=== PATIENT | male | born 1955 | race Caucasian/White ===

== ENCOUNTER 2016-04-11 10:45 | Outpatient (RCR) | payer MEDICARE, MEDICAID ==
[~2016-04-11 10:45] MED LIST: ALBU17AE23 IH; ALBU2.5V4 IH; AMIT50TA3 PO; BUDE10.2 IH; BUDE6HFA IH; CYCL10TA9 PO; DIAZ2TAB2 PO; FLUT16SP22 NS; GABA600T2 PO; GBPN100C PO; GLIM4TAB PO; GLYB5TAB3 PO; HCT25T PO; HYDR25TA4 PO; INSU100C SQ; INSU100I29 SQ; INSU100V5 SQ; IPRA0.2S18 IH; IPRA3AMP11 INH; Insulin Human Lispro SC; LEVE1U SQ; LISI-552 PO; LISI10TA2 PO; LISI20TA2 PO; Lisinopril PO; METF-380 PO; METFOR850T PO; METO-272 PO; MORP30TA28 PO; MTP50T PO; OXYC-12 PO; PAMI30VI8 SQ; RT-ALBUINH IH; SULF-222 PO
[2016-06-27] MEDS ORDERED: IPRA3AMP INH (09:13)
[2016-06-27] MEDS ORDERED: LISI10TA2 PO (09:13)
[2016-06-27] MEDS ORDERED: INSU100V3 SC (09:13)
[2016-06-27] MEDS ORDERED: AMLO5TAB2 PO (09:13)
[2016-06-27] MEDS ORDERED: FLUT12AE4 IH (09:13)
== END 2016-05-03 13:41 | disposition home or self-care (01) ==
PROVIDERS: ATTEND Nurse Practitioner
DX: M51.16 Intervertebral disc disorders with radiculopathy, lumbar region (principal); E11.9 Type 2 diabetes mellitus without complications

== ENCOUNTER 2016-06-12 19:23 | Inpatient (IN) | payer MEDICARE, MEDICAID ==
[~2016-06-12] VITALS: Ht 170.2 cm; Wt 108.9 kg
[2016-06-12 12:50] VITALS: BP 108/69
[2016-06-12] MEDS ORDERED: NS IV 1000 ML 3,500 ML IV PRN (19:45)
[2016-06-12 20:15] LABS: BASOPHILS # (AUTO) 0.1 10^3/uL (0.0-0.1); BASOPHILS % (AUTO) 0 % (0-10); EOSINOPHILS # (AUTO) 0.3 10^3/uL (0.0-0.3); EOSINOPHILS % (AUTO) 1 % (0-10); LYMPHOCYTES # (AUTO) 3.4 X 10^3 (1.0-4.0); LYMPHOCYTES % (AUTO) 15 % (12-44); MEAN CORPUSCULAR HEMOGLOBIN 29 PG (25-34); MEAN CORPUSCULAR HGB CONC 33 G/DL (32-36); MEAN CORPUSCULAR VOLUME 87 FL (80-99); MEAN PLATELET VOLUME 11.3 FL (7.4-10.4); MONOCYTES % (AUTO) 13 % (0-12); NEUTROPHILS # (AUTO) 15.8 X 10^3 (1.8-7.8); NEUTROPHILS % (AUTO) 70 % (42-75); PLATELET COUNT 173 10^3/uL (130-400); RED BLOOD COUNT 5.01 10^6/uL (4.35-5.85); RED CELL DISTRIBUTION WIDTH 14.4 % (10.0-14.5); WHITE BLOOD COUNT 22.5 10^3/uL (4.3-11.0)
--- NOTE | 2016-06-12 20:20 | ED General ---
General Stated Complaint: AMS Source of Information: Patient, EMS Exam Limitations: Physical Impairments History of Present Illness Time Seen by Provider: 19:28 Initial Comments Here with report of fever, altered mental status and overall not feeling well. EMS. Family noted that his blood sugar was elevated today. They did give him his dosing of insulin and Lantus. Blood sugar was improved by EMS in the 170s. Patient will awake with stimulation but is confused. He denies any complaints. He is definitely confused though and a poor historian overall. Timing/Duration: 12 Hours Severity: Moderate, Severe Associated Systoms: No Chest Pain, Fever/ChillsNo Nausea/Vomiting, No Shortness of Air, Weakness Allergies and Home Medications Allergies Coded Allergies: No Known Drug Allergies (Unverified , 12/09/14) Home Medications Albuterol Sulfate 1 Puff Puff 30Days 90 MCG IH UD PRN PRN soa 2 puffs by inhalation qid MDI Prescribed by: MARLENE CALIXTO on 10/17/14 1526 Budesonide/Formoterol Fumarate 10.2 Gm Hfa.aer.ad 2 PUFF IH BID (Reported) Cyclobenzaprine Hcl 10 Mg Tablet 10 MG PO HS (Reported) Fluticasone Propionate 16 Gm [place].susp 1 SPRAY NSEACH BID (Reported) Gabapentin 600 Mg Tablet 600 MG PO TID (Reported) Glimepiride 4 Mg Tablet 4 MG PO DAILY (Reported) Insulin Detemir 100 Unit/1 Ml Insuln.pen 30 UNIT SQ BID (Reported) Insulin Lispro 100 Unit/1 Ml Cartridge 10 UNIT SQ AC (Reported) Lisinopril 20 Mg Tablet 20 MG PO BID (Reported) Morphine Sulfate 30 Mg Tablet.sa 30 MG PO Q12H (Reported) Oxycodone Hcl/Acetaminophen 1 Each Tablet 1-2 TAB PO Q4-6 PRN PRN PAIN (Reported ) MAY TAKE 1 OR 2 TABLETS BY MOUTH EVERY 4 TO 6 HRS NEEDED FOR PAIN. LAST PAIN MED, 1 TAB, GIVEN AT 2:30 PM 12/09/14. Constitutional: see HPI chills fever Respiratory: No cough, No short of breath Gastrointestinal: No nausea, No vomiting Psychiatric/Neurological: See HPI Other Unable to complete review of systems due to clinical condition, altered mental status and confusion. All Other Systems Reviewed Negative Unless Noted: No Past Bwiswyz-Fiilnq-Hyayqt Hx Patient Social History Alcohol Use: Denies Use Recreational Drug Use: No Smoking Status: Former Smoker Former Smoker/When Quit: Sep 29, 2009 Surgeries HX Surgeries: Yes (L SHOULDER, R ANKLE, PENILE IMPLANT, ) Respiratory Hx Respiratory Disorders: Yes (oxygen at HS, prn during the day) Respiratory Disorders: COPD Cardiovascular Hx Cardiac Disorders: No Cardiac Disorders: Hypertension Neurological Hx Neurological Disorders: Yes Reproductive System Hx Reproductive Disorders: Yes (ARTIFICAL TESTICLE, ) Genitourinary Hx Genitourinary Disorders: Yes ("FREQUENT URINATION", ) Genitourinary Disorders: Renal Failure Gastrointestinal Hx Gastrointestinal Disorders: No Musculoskeletal Hx Musculoskeletal Disorders: Yes Musculoskeletal Disorders: Arthritis, Chronic Back Pain Endocrine Hx Endocrine Disorders: Yes Endocrine Disorders: Diabetes, Insulin dep HEENT HX ENT Disorders: No (GLASSES, ) Cancer Hx Cancer: No Psychosocial Hx Psychiatric Problems: No Integumentary HX Skin/Integumentary Disorder: No Blood Transfusions Hx Blood Disorders: No Adverse Reaction to a Blood Tr: No Reviewed Nursing Assessment Reviewed/Agree w Nursing PMH: Yes Family Medical History Significant Family History: No Pertinent Family Hx Family Medial History: Diabetes mellitus 19 MOTHER G8 SISTER Hypertension 19 FATHER 19 MOTHER Myocardial infarction 19 FATHER (STROKES) Physical Exam-Suspected Sepsis Physical Exam Vital Signs Vital Sign - Last 12Hours 06/12/16 12:50 Temp 100.1 Pulse 109 Resp 18 B/P 108/69 Pulse Ox 90 Capillary Refill : General Appearance: No Apparent Distress WD/WN HEENT: PERRL/EOMI Pharynx Normal Neck: Non Tender Supple Respiratory: Lungs Clear Normal Breath Sounds Cardiovascular: No Murmur Tachycardia Gastrointestinal: Non Tender Soft Back: Normal Inspection No CVA Tenderness No Vertebral Tenderness Extremity: Normal Capillary Refill Normal Range of Motion Non Tender No Calf Tenderness Neurologic/Psychiatric: Depressed Affect Disoriented x3 Other (follows simple commands after arousing with strong verbal or mild stimulation chest rub.) Skin: normal color warm/dry Progress/Results/Core Measures Suspected Sepsis SIRS Temperature: Pulse: Respiratory Rate: Laboratory Tests 06/12/16 20:05: White Blood Count 22.5H Blood Pressure / Mean: Laboratory Tests 06/12/16 20:05: Creatinine 3.07H, INR Comment 1.1, Platelet Count 173, Total Bilirubin 1.3H Results/Orders Lab Results Laboratory Tests Test 06/12/16 19:31 06/12/16 20:05 06/12/16 20:37 06/12/16 21:10 Range/Units Glucometer 142 H 70-110 MG/DL Acetaminophen Level < 10 L 10-30 UG/ML Activated Partial Thromboplast Time 25 24-35 SEC Alanine Aminotransferase (ALT/SGPT) 36 0-55 U/L Albumin 3.9 3.2-4.5 G/DL Alkaline Phosphatase 101 40-136 U/L Anion Gap 14 5-14 MMOL/L Aspartate Amino Transf (AST/SGOT) 32 5-34 U/L BUN/Creatinine Ratio 14 Band Neutrophils 2 % Basophils # (Auto) 0.1 0.0-0.1 10^3/uL Basophils % (Manual) 1 % Basophils (%) (Auto) 0 0-10 % Blood Morphology Comment NORMAL Blood Urea Nitrogen 42 H 7-18 MG/DL Calcium Level 9.0 8.5-10.1 MG/DL Carbon Dioxide Level 19 L 21-32 MMOL/L Chloride Level 104 98-107 MMOL/L Creatinine 3.07 H 0.60-1.30 MG/DL Eosinophils # (Auto) 0.3 0.0-0.3 10^3/uL Eosinophils % (Manual) 0 % Eosinophils (%) (Auto) 1 0-10 % Estimat Glomerular Filtration Rate 21 Glucose Level 174 H 70-105 MG/DL Hematocrit 43 40-54 % Hemoglobin 14.5 13.3-17.7 G/DL INR Comment 1.1 0.8-1.4 Lymphocytes # (Auto) 3.4 1.0-4.0 X 10^3 Lymphocytes % (Manual) 28 % Lymphocytes (%) (Auto) 15 12-44 % Mean Corpuscular Hemoglobin 29 25-34 PG Mean Corpuscular Hemoglobin Concent 33 32-36 G/DL Mean Corpuscular Volume 87 80-99 FL Mean Platelet Volume 11.3 H 7.4-10.4 FL Monocytes # (Auto) 3.0 H 0.0-1.0 X 10^3 Monocytes % (Manual) 3 % Monocytes (%) (Auto) 13 H 0-12 % Neutrophils # (Auto) 15.8 H 1.8-7.8 X 10^3 Neutrophils % (Manual) 66 % Neutrophils (%) (Auto) 70 42-75 % Platelet Count 173 130-400 10^3/uL Potassium Level 4.2 3.6-5.0 MMOL/L Prothrombin Time 13.8 12.2-14.7 SEC Red Blood Count 5.01 4.35-5.85 10^6/uL Red Cell Distribution Width 14.4 10.0-14.5 % Salicylates Level < 5.0 L 5.0-20.0 MG/DL Serum Alcohol < 10 <10 MG/DL Sodium Level 137 135-145 MMOL/L Total Bilirubin 1.3 H 0.1-1.0 MG/DL Total Protein 6.6 6.4-8.2 G/DL Troponin I < 0.30 <0.30 NG/ML White Blood Count 22.5 H 4.3-11.0 10^3/uL Lactic Acid Level 1.33 0.50-2.00 MMOL/L Ur Tricyclic Antidepressants Screen POSITIVE H NEGATIVE Urine Amphetamines Screen NEGATIVE NEGATIVE Urine Bacteria NEGATIVE /HPF Urine Barbiturates Screen NEGATIVE NEGATIVE Urine Benzodiazepines Screen POSITIVE H NEGATIVE Urine Bilirubin 2+ H NEGATIVE Urine Calcium Oxalate Crystals MODERATE H /LPF Urine Cannabinoids Screen NEGATIVE NEGATIVE Urine Casts PRESENT /LPF Urine Clarity SLIGHTLY CLOUDY Urine Coarse Granular Casts 2-5 H /LPF Urine Cocaine Screen NEGATIVE NEGATIVE Urine Color ALTON H Urine Crystals PRESENT H /LPF Urine Culture Indicated NO Urine Glucose (UA) 1+ H NEGATIVE Urine Ketones NEGATIVE NEGATIVE Urine Leukocyte Esterase 1+ H NEGATIVE Urine Methadone Screen NEGATIVE NEGATIVE Urine Methamphetamines Screen NEGATIVE NEGATIVE Urine Mucus NEGATIVE /LPF Urine Nitrite NEGATIVE NEGATIVE Urine Opiates Screen POSITIVE H NEGATIVE Urine Oxycodone Screen NEGATIVE NEGATIVE Urine Phencyclidine Screen NEGATIVE NEGATIVE Urine Propoxyphene Screen NEGATIVE NEGATIVE Urine Protein 3+ H NEGATIVE Urine RBC 0-2 /HPF Urine RBC (Auto) 1+ H NEGATIVE Urine Specific [place] 1.025 H 1.016-1.022 Urine Squamous Epithelial Cells 2-5 /HPF Urine Urobilinogen 1 NORMAL MG/DL Urine WBC 2-5 /HPF Urine pH 5 5-9 Test 06/12/16 21:42 06/13/16 03:17 Range/Units Glucometer 149 H 94 70-110 MG/DL Micro Results Microbiology 06/12/16 Influenza Types A,B Antigen (JULIA) - Final, Complete My Orders Orders-MANJINDER MONK MD Cbc With Automated Diff (06/12/16 19:33) Comprehensive Metabolic Panel (06/12/16 19:33) Lactic Acid Analyzer (06/12/16 19:33) Blood Culture (06/12/16 19:33) Sputum Culture (06/12/16 19:33) Ua Culture If Indicated (06/12/16 19:33) Protime With Inr (06/12/16 19:33) Partial Thromboplastin Time (06/12/16 19:33) Chest 1 View, Ap/Pa Only (06/12/16 19:33) O2 (06/12/16:33) Saline Lock/Iv-Start (06/12/16 19:33) Ekg Tracing (06/12/16 19:33) Troponin I (06/12/16 19:33) Ns Iv 1000 Ml (Sodium Chloride 0.9%) (06/12/16 19:45) Vital Signs Adult Sepsis Patie Q1HR (06/12/16 19:33) Remove Rings In Anticipation O (06/12/16 19:33) Influenza A And B Antigens (06/12/16 19:33) Acetaminophen (06/12/16 20:11) Alcohol (06/12/16 20:11) Drug Screen Stat (Urine) (06/12/16 20:11) Salicylate (06/12/16 20:11) Manual Differential (06/12/16 20:05) Ct Head Wo (06/12/16 22:07) Medications Given in ED Current Medications Medications Dose Ordered Sig/Jaspal Route Start Time Stop Time Status Last Admin Dose Admin Sodium Chloride 3,500 ml @ 1,750 mls/hr PRN PRN IV 06/12/16 19:45 06/12/16 23:10 DC 06/12/16 22:22 1,750 MLS/HR Vital Signs/I&O Vital Sign - Last 12Hours 06/12/16 06/12/16 06/12/16 06/12/16 19:37 19:37 22:54 23:00 Temp 98.9 Pulse 111 111 Resp 12 14 B/P Pulse Ox 98 96 97 O2 Delivery Nasal Cannula Nasal Cannula Nasal Cannula O2 Flow Rate 3 3 2.00 06/12/16 06/12/16 06/13/16 06/13/16 23:00 23:41 00:00 00:39 Temp 99.9 Pulse 107 102 Resp 18 B/P 100/55 Pulse Ox 98 94 98 O2 Flow Rate 3.00 06/13/16 06/13/16 01:00 02:15 Pulse 106 Pulse Ox 95 Capillary Refill : Progress Note : Progress Note Seen and evaluated. IV by EMS. Secondary IV initiated. Patient was noted to have declining blood pressure and tachycardia in the setting of fever with concern for severe sepsis or septic shock due to altered mental status. Normal saline 30 mL/kg initiated. Labs, blood cultures, lactic acid, EKG, chest x-ray and UA ordered. Monitor patient. 2049: Albrecht catheter ordered as patient has not been elevated give urine sample yet and we will need to do monitoring of urinary output due to altered mental status and sepsis concerns. 2134: I did discuss the case with Dr. LAKE. He except patient for admission, inpatient status for acute renal failure and volume depletion. There is no indications of infection to chest or urine currently and lactic acid is negative. Influenza screen pending. Patient had a similar presentation in 2014 and had acute renal failure and volume depletion at that time. Patient has been afebrile here. Patient to be admitted inpatient status for the renal failure. He will complete his fluid volume resuscitation. Focused exam is negative currently. Discussed with the patient's brother who agrees with plan. Patient is on narcotic medication and he may have sedative affect related to that. He is moving all extremities. ECG Initial ECG Impression Date: Jun 12, 2016 Initial ECG Impression Time: 19:37 Initial ECG Rate: 117 Initial ECG Rhythm: S.Tach Comment Sinus tachycardia with left axis deviation. Overall similar in morphology to previous except for elevated rate. No evidence of ST elevation [place]. Interpreted by me. Diagnostic Imaging Diagonstic Imaging: Xray Plain Films/CT/US/NM/MRI: chest Comments [facility] [place], [place] NAME: VASQUEZ CAMPBELL V [facility] REC#: [id number] PT STATUS: REG ER : 1955 PHYSICIAN: MANJINDER MONK MD ADMIT DATE: 06/12/16/ER Draft Date of Exam:06/12/16 CHEST 1 VIEW, AP/PA ONLY Portable chest is correlated with CT of the chest from July 28, 2014. INDICATION: Altered mental status. FINDINGS: Lung volumes are diminished with some mild basilar atelectasis. There is enlargement of the cardiac silhouette but no findings to suggest failure. No large effusion evident. There is no pneumothorax. IMPRESSION: 1. Low lung volumes with bibasilar atelectasis. 2. Enlarged cardiac silhouette without evidence of failure. Dictated on workstation # [id number] Dict: 06/12/162036 Trans: 06/12/162049 [id number] Interpreted by: AHSAN FREEMAN MD Electronically signed by: Diagonschristopher Imaging: CT Plain Films/CT/US/NM/MRI: head Comments No intracranial hemorrhage, mass effect or edema. No evidence of acute cortical stroke. Visualized sinuses and mastoid air cells are clear. Reviewed: Reviewed Night [facility] Study Departure Communication Time/Spoke to Admitting Phy: 21:35 Impression Impression: Primary Impression: Acute renal failure Qualified Code: N17.9 - Acute kidney failure, unspecified Additional Impression: Volume depletion Disposition: ADMITTED INPATIENT Condition: Stable Departure-Patient Inst. Referrals: LIZETTE REINOSO MD (PCP) Primary Care Physician MANJINDER MONK MD Jun 12, 2016 20:20
[2016-06-12 20:30] LABS: INR 1.1 (0.8-1.4); PROTHROMBIN TIME PATIENT 13.8 SEC (12.2-14.7)
[2016-06-12 20:36] LABS: ACETAMINOPHEN < 10 UG/ML (10-30); ALCOHOL < 10 MG/DL (<10); SALICYLATE < 5.0 MG/DL (5.0-20.0)
[2016-06-12 20:46] LABS: BAND NEUTROPHILS 2 %; BASOPHILS % (MANUAL) 1 %; EOSINOPHILS % (MANUAL) 0 %; LYMPHOCYTES % (MANUAL) 28 %; NEUTROPHILS % (MANUAL) 66 %
[2016-06-12 20:47] LABS: ALANINE AMINOTRANSFERASE 36 U/L (0-55); ALBUMIN 3.9 G/DL (3.2-4.5); ANION GAP 14 MMOL/L (5-14); ASPARTATE AMINO TRANSFERASE 32 U/L (5-34); BILIRUBIN,TOTAL 1.3 MG/DL (0.1-1.0); BLOOD UREA NITROGEN 42 MG/DL (7-18); BUN/CREATININE RATIO 14; CARBON DIOXIDE 19 MMOL/L (21-32); CHLORIDE 104 MMOL/L (98-107); CREATININE SERUM 3.07 MG/DL (0.60-1.30); GFR ESTIMATED 21; GLUCOSE 174 MG/DL (70-105); POTASSIUM 4.2 MMOL/L (3.6-5.0); SODIUM 137 MMOL/L (135-145); TOTAL PROTEIN 6.6 G/DL (6.4-8.2)
--- NOTE | 2016-06-12 20:50 | Diagnostic Imaging Report ---
Portable chest is correlated with CT of the chest from July 28, 2014. INDICATION: Altered mental status. FINDINGS: Lung volumes are diminished with some mild basilar atelectasis. There is enlargement of the cardiac silhouette but no findings to suggest failure. No large effusion evident. There is no pneumothorax. IMPRESSION: 1. Low lung volumes with bibasilar atelectasis. 2. Enlarged cardiac silhouette without evidence of failure. Dictated by: Dictated on workstation # [id number]
[2016-06-12 20:53] LABS: TROPONIN I < 0.30 NG/ML (<0.30)
[2016-06-12 21:15] LABS: KETONES,URINE NEGATIVE (NEGATIVE); LEUKOCYTE ESTERASE ,URINE 1+ (NEGATIVE); NITRITE,URINE NEGATIVE (NEGATIVE); PH,URINE 5 (5-9); PROTEIN,URINE 3+ (NEGATIVE); UROBILINOGEN,URINE 1 MG/DL (NORMAL)
[2016-06-12 21:28] LABS: BILIRUBIN,URINE 2+ (NEGATIVE); CALCIUM OXALATE CRYSTALS,UR MODERATE /LPF
[2016-06-12] MEDS ORDERED: ONDANSETRON 4 MG/2 ML (SDV) Z0FRAN IV PRN (23:15)
[2016-06-12] MEDS: NS IV 1000 ML 1,000 ML IV SCH (23:40)
[2016-06-13] VITALS (7 sets, daily range): BP systolic 100–143; BP diastolic 55–77
[2016-06-13] MEDS ORDERED: RT-ALBUTEROL/IPRATROPIUM 3 ML (DUONEB) VIAL INH PRN (00:45)
[2016-06-13 05:13] LABS: BASOPHILS % (AUTO) 0 % (0-10); EOSINOPHILS # (AUTO) 0.2 10^3/uL (0.0-0.3); EOSINOPHILS % (AUTO) 1 % (0-10); LYMPHOCYTES # (AUTO) 3.1 X 10^3 (1.0-4.0); LYMPHOCYTES % (AUTO) 18 % (12-44); MEAN CORPUSCULAR HEMOGLOBIN 29 PG (25-34); MEAN CORPUSCULAR HGB CONC 33 G/DL (32-36); MEAN CORPUSCULAR VOLUME 88 FL (80-99); MEAN PLATELET VOLUME 11.6 FL (7.4-10.4); MONOCYTES # (AUTO) 1.8 X 10^3 (0.0-1.0); MONOCYTES % (AUTO) 11 % (0-12); NEUTROPHILS % (AUTO) 70 % (42-75); PLATELET COUNT 167 10^3/uL (130-400); RED BLOOD COUNT 4.43 10^6/uL (4.35-5.85); RED CELL DISTRIBUTION WIDTH 14.4 % (10.0-14.5); WHITE BLOOD COUNT 17.2 10^3/uL (4.3-11.0)
[2016-06-13 05:41] LABS: ALBUMIN 3.2 G/DL (3.2-4.5); BILIRUBIN,TOTAL 0.9 MG/DL (0.1-1.0); CALCIUM 8.1 MG/DL (8.5-10.1); CREATININE SERUM 2.34 MG/DL (0.60-1.30); POTASSIUM 3.8 MMOL/L (3.6-5.0); TOTAL PROTEIN 5.6 G/DL (6.4-8.2)
[2016-06-13] MEDS: RT-ADVAIR HFA 115/21 MCG PER PUFF IH SCH ×2 (06:42→20:00)
[2016-06-13] MEDS: RT-ALBUTEROL/IPRATROPIUM 3 ML (DUONEB) VIAL INH SCH ×3 (06:42→20:11)
[2016-06-13] MEDS: NS IV 1000 ML 1,000 ML IV SCH ×3 (06:46→17:36)
[2016-06-13] MEDS ORDERED: FLU TRIvalent (5 YOA+) 2016-17 (AFLURIA) 0.5 ML IM ONE (07:00)
--- NOTE | 2016-06-13 08:07 | Diagnostic Imaging Report ---
PROCEDURE: CT head without contrast. TECHNIQUE: Multiple contiguous axial images were obtained through the brain without the use of intravenous contrast. INDICATION: Altered mental status. COMPARISON: 07/28/2014. FINDINGS: No hyperdense hemorrhage or space-occupying mass. No hydrocephalus or midline shift. The ibarra-white matter differentiation is preserved. Specifically, there is no evidence of territorial based infarct. Age-appropriate mild cerebral and cerebellar volume loss. No isolated lobar atrophy. Basilar cisterns remain patent. No scalp swelling. No acute skull fracture or concerning osseous lesion. Paranasal sinuses and mastoid air cells are clear. IMPRESSION: 1. No acute intracranial process. 2. Findings are in agreement with the preliminary report. Dictated by: Dictated on workstation # [id number]
[2016-06-13] MEDS ORDERED: GABA600T2 PO (09:50)
[2016-06-13] MEDS ORDERED: INSU100V16 SC (09:50)
[2016-06-13] MEDS ORDERED: CYCL10TA9 PO (09:50)
[2016-06-13] MEDS ORDERED: OXYC-471 PO (09:50)
[2016-06-13] MEDS ORDERED: RT-ALBUINH INH (09:50)
[2016-06-13] MEDS ORDERED: MECL-106 PO (09:50)
[2016-06-13] MEDS ORDERED: ALBU2.5V4 NEB (09:50)
[2016-06-13] MEDS ORDERED: AMLO5TAB2 PO (09:50)
[2016-06-13] MEDS ORDERED: DIAZ2TAB2 PO (09:50)
[2016-06-13] MEDS ORDERED: MORP60TA52 PO (09:50)
[2016-06-13] MEDS ORDERED: NF-SOLIF5T PO (09:50)
[2016-06-13] MEDS ORDERED: INSU100V5 SC (09:50)
--- NOTE | 2016-06-13 10:36 | History & Physical-Hospitalist ---
HPI History of Present Illness: HPI/Chief Complaint CC: Confusion HPI: This is a 60-year-old white male that presented to the emergency room by ambulance with altered mental status. Upon assessment of medical record I do find a history and physical dated 10/16/14 by [facility] when he was admitted for the same type complaints. Apparently he had an issue with acute renal failure likely medication related along with hypotension and resolved without residual but I'm having difficulty finding any information whatsoever about the patient since [facility] ambulance service did not transport the patient last night nor is there any family or any contact information of the patient came with. He is very confused and unable to answer any questions reliably. Exam Limitations: clinical condition Date Seen 06/13/16 Attending Physician David Tucker MD PCP No,Local Physician Referring Physician Date of Admission Jun 12, 2016 at 22:22 Home Medications & Allergies Home Medications Reviewed patient Home Medication Reconciliation Form Allergies Allergies Coded Allergies No Known Drug Allergies (Unverified12/09/14) Past Pitwlqo-Zzrggx-Emnadn Hx Patient Social History Alcohol Use: Denies Use Recreational Drug Use: No Smoking Status: Former Smoker Former smoker/When Quit: Sep 29, 2009 Physical Abuse Screen: No (unable to assess upon arrival) Sexual Abuse: No (unable to assess upon arrival) Recent Foreign Travel: No Contact w/other who traveled: No Recent Hopitalizations: Yes Recent Infectious Disease Expo: No Surgeries HX Surgeries: Yes (L SHOULDER, R ANKLE, PENILE IMPLANT, ) Respiratory Hx Respiratory Disorders: Yes (oxygen at HS, prn during the day) Cardiovascular Hx Cardiovascular Disorders: No Cardiac Disorders: Hypertension Neurological Hx Neurological Disorders: Yes Reproductive System Hx Reproductive Disorders: Yes (ARTIFICAL TESTICLE, ) Genitourinary Hx Genitourinary Disorders: Yes ("FREQUENT URINATION", ) Genitourinary Disorders: Renal Failure Gastrointestinal Hx Gastrointestinal Disorders: No Musculoskeletal Hx Musculoskeletal Disorders: Yes Musculoskeletal Disorders: Arthritis, Chronic Back Pain Endocrine Hx Endocrine Disorders: Yes Endocrine Disorders: Diabetes, Insulin dep HEENT HX ENT Disorders: No (GLASSES, ) Cancer Hx Cancer: No Psychosocial Hx Psychiatric Problems: No Integumentary HX Skin/Integumentary Disorder: No Blood Transfusions Hx Blood Disorders: No Adverse Reaction to a Blood Tr: No Reviewed Nursing Assessment Reviewed/Agree w Nursing PMH: Yes Family Medical History Significant Family History: No Pertinent Family Hx Family Hx: Diabetes mellitus 19 MOTHER G8 SISTER Hypertension 19 FATHER 19 MOTHER Myocardial infarction 19 FATHER (STROKES) Review of Systems ROS-Unable to Obtain: Unreliable Constitutional: see HPI Physical Exam Physical Exam Vital Signs Vital Sign - Last 12Hours 06/12/16 12:50 Temp 100.1 Pulse 109 Resp 18 B/P 108/69 Pulse Ox 90 Capillary Refill : Greater Than 3 Seconds General Appearance: Chronically ill Mild Distress Obese Neck: Full Range of Motion Normal Inspection Supple Respiratory: Chest Non Tender Lungs Clear Normal Breath Sounds No Accessory Muscle Use No Respiratory Distress Cardiovascular: Regular Rate, Rhythm No Edema No Gallop Back: Normal Inspection No CVA Tenderness Neurologic/Psychiatric: Disoriented x3 Skin: Normal Color Warm/Dry Lymphatic: No Adenopathy Results Results/Procedures Lab Laboratory Tests 06/12/16 20:05 06/13/16 04:42 Assessment/Plan Admission Diagnosis Assessment: Altered mental status and hypotension with history of similar event back in 2014 related to acute renal failure and overmedication DM HTN Assessment and Plan Plan: Gathering information from family Supportive care Speech and physical therapy Monitor closely Clinical Quality Measures DVT/VTE Risk/Contraindication: Risk Factor Score Per Nursin RFS Level Per Nursing on Admit: 4+=Very High ANGÉLICA DAVIS DO Jun 13, 2016 10:36
--- NOTE | 2016-06-13 11:12 | Speech Therapy Progress Note ---
Therapy Progress Note Speech pathology dysphagia evaluation consult received and chart reviewed. The speech pathologist attempted swallowing evaluation, however, the patient continued to demonstrate decreased alertness levels. The clinician attempted to rouse the patient with gentle verbal cues, however, was unsuccessful. The patient was seated in an upright position by the ST in bed and lights were increased in the room in attempts to improve cooperation and alertness. The patient continued to demonstrate high levels of lethargy. The patient did not follow one-step verbal commands with direct modeling and refused all trials of puree. The patient did consume three straw drinks of thin liquid without signs/ symptoms of aspiration, however, did not participate in a full bedside swallowing evaluation. The speech pathology will re-attempt the swallowing evaluation when the patient has increased alertness and improved participation. Thank you. CHRISTIANO HEWITT Jun 13, 2016 11:12
[2016-06-13] MEDS: ENOXAPARIN 40 MG/0.4 ML (LOVENOX) SYR SC SCH (11:30)
[2016-06-13] MEDS: inSUlin ASPART (NovoLOG) 1 UNIT/0.01 ML (CHARGE PER UNIT) SC SCH ×3 (12:14→21:00)
--- NOTE | 2016-06-13 12:29 | Physical Therapy Evaluation ---
PT Evaluation-General Medical Diagnosis Admission Date Jun 12, 2016 at 22:22 Medical Diagnosis: AMS, ARF, hypotension Onset Date: Jun 12, 2016 Therapy Diagnosis Therapy Diagnosis: weakness Height/Weight Height (Feet): 5 Height (Inches): 7.00 Weight (Pounds): 266 Weight (Ounces): 0.0 Precautions Precautions/Isolations: Aspiration, Fall Prevention, Standard Precautions Referral Physician: Henrietta Reason for Referral: Evaluation/Treatment Medical History Pertinent Medical History: Arthritis, DM, HTN Additional Medical History back pain; history of renal failure Current History Pt admitted with altererd mental status and ARF and also noted Hypotension. Reviewed History: Yes Social History Home: Single Level Current Living Status: he notes he lives with somone but unable to ID who Unsure of home set up, pt unable to recall or report. Prior/Core FIM Prior Level of Function Functional [place] Measure 0=Not Assessed/NA 4=Minimal Assistance 1=Total Assistance 5=Supervision or Setup 2=Maximal Assistance 6=Modified [place] 3=Moderate Assistance 7=Complete [place] Unsure of prior mobility, pt reports, "I don't know." His appearance is such that I suspect he was ambulatory and likely without AD, but this is not confirmed. PT Evaluation-Current Subjective Mumbles at times. Occas answers questions. Sometimes doesn't respond to the question. Unsure of accuracy of answers. At one point, pt did state, "I think I 've had a stroke." Keeps eyes closed throughout treatment. Objective Patient Orientation: Confused, Unable to Assess Problem Solving: Poor Attachments: Oxygen (in situ post treatment), Albrecht Catheter, IV ROM/Strength ROM Lower Extremities WFL--pt did follow cues to activiely move through range Strenght Lower Extremities unable to assess, at least 3/5; unable to follow cues for strength testing. Integumentary/Posture Integumentary appears intact Bladder Incontinence: Albrecht Cath Posture not assessed Neuromuscular (Tone, Coordination, Reflexes) Did not find any specific deficits Sensory Hearing: Functional Transfers Functional [place] Measure 0=Not Assessed/NA 4=Minimal Assistance 1=Total Assistance 5=Supervision or Setup 2=Maximal Assistance 6=Modified [place] 3=Moderate Assistance 7=Complete [place] Treatment Pt was able to participate some in scooting up in bed, however was still dependent. Pt did participate in rolling to his right but was still dependent. Assessment/Needs Pt presents with AMS and limited participation with evaluation. Currently, he is dependent for all care due to his mental status. He was inconsitent with participation with evaluation and at times communicated and participated and other times did not. Did not attempt functional transfers or OOB activity due to safety concerns and if pt would safely participate. Will continue to assess pt's mobility and progress activity as he is able to participate and safely perform. 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 PT Plan Problem List Problem List: Activity Tolerance, Functional Strength, Safety, Balance, Gait, Transfer, Bed Mobility Treatment/Plan Treatment Plan: Continue Plan of Care Treatment Plan: Bed Mobility, Functional Activity Imani, Functional Strength, Gait, Safety, Therapeutic Exercise, Transfers Treatment Duration: Jun 20, 2016 # of days/week 5-6 Visits Per Week: 5-6 Pt/Family Agrees w/Plan: Yes (pt partially cooperative with treatment) Time/GCodes Time In: 1140 Time Out: 1156 Total Billed Treatment Time: 16 Total Billed Treatment visit EVM 16; 2 personal factors--AMS, ARF; 3 elements--Strength, functional transfers , ability to follow cues and changing due to AMS SANTIAGO RIVERA PT Jun 13, 2016 12:29
[2016-06-13] MEDS ORDERED: CHOL10007 PO (12:31)
--- NOTE | 2016-06-13 16:04 | Occ Therapy Progress Note ---
Therapy Progress Note 1535 to 1540 Attempted OT eval. Pt was on his side in bed and had undressed himself. Pt was minimally responsive to OT, answering a couple questions with No and then was unintelligible for rest of sentence. Kept his eyes closed. Demonstrated that he could move his arms but refused to do so on request. Will see tomorrow. RICKIE HAMPTON OT Jun 13, 2016 16:04
[2016-06-13] MEDS ORDERED: LORazepam INJ 2 MG/ML (ATIVAN) VIAL ONE (19:25)
[2016-06-13] MEDS ORDERED: LORazepam INJ 2 MG/ML (ATIVAN) VIAL IVP PRN (19:30)
[2016-06-14] VITALS (15 sets, daily range): BP systolic 121–197; BP diastolic 66–122
[2016-06-14 05:31] LABS: BASOPHILS % (AUTO) 0 % (0-10); EOSINOPHILS # (AUTO) 0.1 10^3/uL (0.0-0.3); EOSINOPHILS % (AUTO) 1 % (0-10); LYMPHOCYTES # (AUTO) 1.5 X 10^3 (1.0-4.0); LYMPHOCYTES % (AUTO) 11 % (12-44); MEAN CORPUSCULAR HEMOGLOBIN 29 PG (25-34); MEAN CORPUSCULAR HGB CONC 33 G/DL (32-36); MEAN CORPUSCULAR VOLUME 88 FL (80-99); MEAN PLATELET VOLUME 11.5 FL (7.4-10.4); MONOCYTES # (AUTO) 1.5 X 10^3 (0.0-1.0); MONOCYTES % (AUTO) 11 % (0-12); NEUTROPHILS # (AUTO) 10.9 X 10^3 (1.8-7.8); NEUTROPHILS % (AUTO) 78 % (42-75); PLATELET COUNT 151 10^3/uL (130-400); RED BLOOD COUNT 4.44 10^6/uL (4.35-5.85); RED CELL DISTRIBUTION WIDTH 13.9 % (10.0-14.5); WHITE BLOOD COUNT 13.9 10^3/uL (4.3-11.0)
[2016-06-14 05:55] LABS: ALANINE AMINOTRANSFERASE 36 U/L (0-55); ALBUMIN 3.5 G/DL (3.2-4.5); ANION GAP 11 MMOL/L (5-14); ASPARTATE AMINO TRANSFERASE 38 U/L (5-34); BLOOD UREA NITROGEN 22 MG/DL (7-18); BUN/CREATININE RATIO 19; CALCIUM 8.8 MG/DL (8.5-10.1); CARBON DIOXIDE 18 MMOL/L (21-32); CHLORIDE 112 MMOL/L (98-107); CREATININE SERUM 1.15 MG/DL (0.60-1.30); GFR ESTIMATED > 60; GLUCOSE 171 MG/DL (70-105); POTASSIUM 4.2 MMOL/L (3.6-5.0); SODIUM 141 MMOL/L (135-145); TOTAL PROTEIN 6.2 G/DL (6.4-8.2)
[2016-06-14] MEDS: NS IV 1000 ML 1,000 ML IV SCH ×2 (05:58→16:09)
[2016-06-14] MEDS: inSUlin ASPART (NovoLOG) 1 UNIT/0.01 ML (CHARGE PER UNIT) SC SCH ×4 (06:00→21:00)
[2016-06-14] MEDS: RT-ADVAIR HFA 115/21 MCG PER PUFF IH SCH ×3 (07:54→21:14)
[2016-06-14] MEDS: RT-ALBUTEROL/IPRATROPIUM 3 ML (DUONEB) VIAL INH SCH ×4 (07:55→21:00)
[2016-06-14] MEDS ORDERED: HALOPERIDOL 5 MG/ML (HALDOL) AMP IM NR (08:07)
[2016-06-14] MEDS ORDERED: HALOPERIDOL 5 MG/ML (HALDOL) AMP ONE (08:07)
--- NOTE | 2016-06-14 09:22 | Physical Therapy Progress Note ---
Therapy Progress Note This patient was seen in attempt to help reposition in bed. Pt does not vocalize or answer questions. He is not combative but doesn't participate with therapy. Pt found with head at the foot of the bed in left sidelying. Attempted to assist pt to sit EOB to place head at the head of bed. Pt did resist the attempt and just pressed to lie back down. Pt left in left sidelying with head at foot of bed at this time. Bed rails up x 4, bed alarm activated. Nurse aide is checking him frequently and his brother in law is in the room at this time. Will reassess tomorrrow to see if cognition/participation improves. visit [phone] SANTIAGO RIVERA PT Jun 14, 2016 09:22
--- NOTE | 2016-06-14 09:36 | Speech Therapy Progress Note ---
Therapy Progress Note The clinician attempted to complete requested dysphagia evaluation on this date. Upon entrance, the patient was undressed with head towards the foot of the bed. The clinician attempted re-positioning, as well as, requested participation in therapy. The patient did not vocalize or answer questions. The patient is not combative but does not participate in the assessment. The patient was left in above position upon exit. The patient's [id number] is present in the room. Speech pathology will attempt re-evaluation tomorrow if cognition/participation improves. CHRISTIANO HEWITT Jun 14, 2016 09:36
[2016-06-14] MEDS ORDERED: HALOPERIDOL 5 MG/ML (HALDOL) AMP IM PRN ×2 (10:00)
[2016-06-14] MEDS ORDERED: LORazepam INJ 2 MG/ML (ATIVAN) VIAL IVP ONE ×2 (10:10→10:45)
[2016-06-14] MEDS ORDERED: DEXMEDETOMIDINE PRE-MIX 100 ML IV ONE ×2 (11:00→13:23)
--- NOTE | 2016-06-14 11:14 | Progress Note-Hospitalist ---
Progress Note HPI/CC on Admission CC: Confusion HPI: This is a 60-year-old white male that presented to the emergency room by ambulance with altered mental status. Upon assessment of medical record I do find a history and physical dated 10/16/14 by [facility] when he was admitted for the same type complaints. Apparently he had an issue with acute renal failure likely medication related along with hypotension and resolved without residual but I'm having difficulty finding any information whatsoever about the patient since [facility] ambulance service did not transport the patient last night nor is there any family or any contact information of the patient came with. He is very confused and unable to answer any questions reliably. Progress Notes/Assess & Plan Date Seen 06/14/16 Admission Dx/Process Assessment: Altered mental status and hypotension with history of similar event back in 2014 related to acute renal failure and overmedication DM HTN Diagonsis/Assessment & Plan Chart Review: Dr. Tucker was called last night and pt required Ativan injection due to agitation. I was called this morning at 0800 Haldol 2mg IM x1. Pts Creat has normalized at 1.15 now. WBC down from 17 to 13.9. Pt still extremely confused and unable to follow any type of commands. CT scan brain normal, CXR normal, Ua normal, so this is metabolic encephalopathy with slow recovery. dough catcher: RN states that pt remains very disoriented. Haldol was able to calm pt for only an hour this morning. Patient Interview: Pt very agitated during visit and struggling with family and nurses. Unable to speak with pt due to severe agitation. Pt's brother-in- law states that pt does not drink any ETOH. Pt used to take pain medicine regularly for pain in his shoulder. Family states that PCP is in [facility], but is unsure who PCP is. Dr. Davis informs pts family that kidney failure was resolved. Assessment: Altered mental status and hypotension with history of similar event back in 2014 related to acute renal failure and overmedication now worsened requiring ICU admit and possible intubation even though ARF resolved DM HTN Plan: Ativan 2mg q2 hrs and Haldol 5mg q2 hrs for agitation Restraints Consult Dr. Deal Gathering information from family Supportive care Speech and physical therapy Monitor closely Scribed by Maged Mckinney under the direct supervision of Dr. Davis. ANGÉLICA DAVIS DO Jun 14, 2016 11:14
[2016-06-14] MEDS ORDERED: morphine INJ 4 MG/ML 1 ML (VIAL/SYRINGE) IVP PRN ×2 (11:15→19:00)
--- NOTE | 2016-06-14 11:16 | Pulmonary Consultation ---
History of Present Illness History of Present Illness Date of Consultation 06/14/16 11:10 Date of Admission History of Present Illness 60yo WM presented to ED secondary to mental status change. He had similar episode 10/16/14. Pt is currently unable to answer questions secondary to mental status. Called to bedside stat secondary to agitation. He has been hitting and kicking at nurses. Allergies and Home Medications Allergies Coded Allergies: No Known Drug Allergies (Unverified , 12/09/14) Home Medications Albuterol Sulfate 2.5 Mg/3 Ml Vial.neb, 2.5 MG NEB QID, (Reported) Albuterol Sulfate 1 Puff Puff, 1-2 PUFF INH QID, (Reported) Amlodipine Besylate 5 Mg Tablet, 5 MG PO DAILY, (Reported) Budesonide/Formoterol Fumarate 10.2 Gm Hfa.aer.ad, 2 PUFF IH BID, (Reported) Cholecalciferol (Vitamin D3) 1,000 Unit Capsule, 1,000 UNIT PO DAILY, (Reported) Cyclobenzaprine HCl 10 Mg Tablet, 10 MG PO DAILY, (Reported) Diazepam 2 Mg Tablet, 2 MG PO Q8H, (Reported) Fluticasone Propionate 16 Gm Chinquapin.susp, 2 SPRAY NS DAILY, (Reported) Gabapentin 600 Mg Tablet, 600 MG PO TID, (Reported) Insulin Aspart 100 Unit/1 Ml Susp, 30 UNITS SC TIDWM, (Reported) Insulin Determir 1,000 Units/10 Ml Soln, 30 UNITS SC BID, (Reported) Meclizine HCl 25 Mg Tablet, 12.5 MG PO QID, (Reported) TAKES 1/2 (25MG) TABLET Morphine Sulfate 60 Mg Tablet.er, 60 MG PO Q12H, (Reported) Oxycodone HCl/Acetaminophen 1 Each Tablet, 1 TAB PO TID PRN for PAIN, (Reported) Solifenacin Succinate 5 Mg Tablet, 5 MG PO DAILY, (Reported) Past Xcvumyc-Uuvqqs-Xajjxa Hx Patient Social History Alcohol Use: Denies Use Recreational Drug Use: No Smoking Status: Former Smoker Former Smoker/When Quit: Sep 29, 2009 Recent Foreign Travel: No Contact w/Someone Who Travel: No Recent Infectious Disease Expo: No Recent Hopitalizations: Yes Physical Abuse Screen: No (unable to assess upon arrival) Sexual Abuse: No (unable to assess upon arrival) Surgeries HX Surgeries: Yes (L SHOULDER, R ANKLE, PENILE IMPLANT, ) Respiratory Hx Respiratory Disorders: Yes (oxygen at HS, prn during the day) Respiratory Disorders: COPD Cardiovascular Hx Cardiac Disorders: No Cardiac Disorders: Hypertension Neurological Hx Neurological Disorders: Yes Reproductive System Hx Reproductive Disorders: Yes (ARTIFICAL TESTICLE, ) Genitourinary Hx Genitourinary Disorders: Yes ("FREQUENT URINATION", ) Genitourinary Disorders: Renal Failure Gastrointestinal Hx Gastrointestinal Disorders: No Musculoskeletal Hx Musculoskeletal Disorders: Yes Musculoskeletal Disorders: Arthritis, Chronic Back Pain Endocrine Hx Endocrine Disorders: Yes Endocrine Disorders: Diabetes, Insulin dep HEENT HX ENT Disorders: No (GLASSES, ) Cancer Hx Cancer: No Psychosocial Hx Psychiatric Problems: No Integumentary HX Skin/Integumentary Disorder: No Blood Transfusions Hx Blood Disorders: No Adverse Reaction to a Blood Tr: No Reviewed Nursing Assessment Reviewed/Agree w Nursing PMH: Yes Family Medical History Significant Family History: No Pertinent Family Hx Family Medial History: Diabetes mellitus 19 MOTHER G8 SISTER Hypertension 19 FATHER 19 MOTHER Myocardial infarction 19 FATHER (STROKES) Exam Exam Vital Signs Date Time Temp Pulse Resp B/P (MAP) Pulse Ox O2 Delivery O2 Flow Rate FiO2 06/14/16 08:00 96.3 110 20 171/66 95 Room Air 06/14/16 07:55 94 06/14/16 04:13 98.3 103 18 166/88 94 Room Air 06/13/16 23:33 99.2 110 20 123/77 97 Room Air 06/13/16 21:53 94 06/13/16 20:15 Room Air 06/13/16 20:11 92 06/13/16 19:20 99.2 111 18 143/61 92 Room Air 06/13/16 18:15 92 06/13/16 15:35 98.5 97 18 115/61 91 Room Air 06/13/16 12:25 98.9 92 20 106/70 99 Nasal Cannula 2.00 I & O 06/14/16 07:00 Intake Total 2600 ml Output Total 4700 ml Balance -2100 ml General Appearance: Chronically ill, Mild Distress, Obese HEENT: PERRL/EOMI, Pharynx Normal Neck: Full Range of Motion, Normal Inspection, Supple Respiratory: Chest Non Tender, Lungs Clear, Normal Breath Sounds, No Accessory Muscle Use, No Respiratory Distress Cardiovascular: Regular Rate, Rhythm, No Edema, No Gallop Capillary Refill: Greater Than 3 Seconds Extremity: Normal Capillary Refill, Normal Range of Motion, Non Tender, No Calf Tenderness Neurologic/Psychiatric: Disoriented x3 Skin: Normal Color, Warm/Dry Lymphatic: No Adenopathy Results Lab Laboratory Tests 06/12/16 20:05 06/13/16 04:42 06/14/16 04:55 Assessment/Plan Assessment/Plan Combative-- Pt may need to be intubated secondary to sedation -Haldol 5mg IV Q 6 PRN -Ativan 1-2 mg IV Q4 PRN -Precedex gtt -Morphin 1-2mg IV Q4 -End tidal C02 monitor metabolic encephalopathy Clinical Quality Measures DVT/VTE Risk/Contraindication: Risk Factor Score Per Nursin RFS Level Per Nursing on Admit: 4+=Very High MARCI LOPEZ DO Jun 14, 2016 11:16
[2016-06-14] MEDS ORDERED: LORazepam INJ 2 MG/ML (ATIVAN) VIAL IVP PRN (12:00)
[2016-06-14 12:27] LABS: ABG HCO3 20 MMOL/L (23-27); ABG OXYGEN SATURATION 96 % (94-100); ABG PCO2 42 MMHG (35-45); ABG PO2 78 MMHG (79-93); ABG TCO2 21.6 MMOL/L (21.0-31.0)
[2016-06-14 12:30] LABS: ALLENS TEST POSITIVE; PATIENT TEMP 98.7
[2016-06-14] MEDS ORDERED: DEXMEDETOMIDINE 400 MCG/100 ML IV SCH (13:35)
[2016-06-14] MEDS ORDERED: [UNRECOGNIZED DRUG - OTHER] IV SCH (13:35)
--- NOTE | 2016-06-14 13:38 | Occ Therapy Progress Note ---
Therapy Progress Note Attempted OT treatment this am. RN reports hold therapy at this time as pt has been very agitated and has been transferred to ICU. Will require new orders to initiate OT treatment when appropriate secondary to change in status and transfer to higher level of care. HAMLET MORRIS OT Jun 14, 2016 13:38
[2016-06-14] MEDS ORDERED: HALOPERIDOL 5 MG/ML (HALDOL) AMP IV PRN ×2 (13:45→19:00)
[2016-06-14] MEDS: ENOXAPARIN 40 MG/0.4 ML (LOVENOX) SYR SC SCH (14:39)
[2016-06-14 16:49] LABS: ABG BASE EXCESS -4.2 MMOL/L (-2.5-2.5); ABG HCO3 21 MMOL/L (23-27); ABG OXYGEN SATURATION 94 % (94-100); ABG PCO2 42 MMHG (35-45); ABG PO2 64 MMHG (79-93); ABG TCO2 22.2 MMOL/L (21.0-31.0)
[2016-06-14 16:50] LABS: ABG PH 7.32 (7.37-7.43); ALLENS TEST POSITIVE
[2016-06-14 16:51] LABS: PATIENT TEMP 98.3
[2016-06-14] MEDS: DEXMEDETOMIDINE PRE-MIX 100 ML IV SCH ×3 (17:28→22:29)
[2016-06-14] MEDS: LORazepam INJ 2 MG/ML (ATIVAN) VIAL IVP PRN (22:07)
[2016-06-14] MEDS ORDERED: hydrALAZINE (APESOLINE) 20 MG/ML VIAL ONE (22:45)
[2016-06-14] MEDS ORDERED: hydrALAZINE (APESOLINE) 20 MG/ML VIAL IV ONE (23:00)
[2016-06-15] VITALS (43 sets, daily range): BP systolic 73–219; BP diastolic 38–143
[2016-06-15] MEDS ORDERED: PROPOFOL DRIP (ICU) 100 ML IV ONE (01:15)
[2016-06-15] MEDS ORDERED: fentaNYL INJECTION 100 MCG/2 ML AMP ONE (01:15)
[2016-06-15] MEDS ORDERED: PROPOFOL DRIP (ICU) 100 ML IV SCH (01:30)
[2016-06-15] MEDS ORDERED: SUCCINYLCHOLINE INJ 100 MG/5 ML SYR INJ ONE (02:00)
[2016-06-15] MEDS ORDERED: ROCURONIUM 50 MG/5 ML (ZEMURON) VIAL IV ONE ×2 (02:00→16:00)
[2016-06-15] MEDS ORDERED: MIDAZOLAM 5 MG/5 ML (VERSED) VIAL INJ ONE ×2 (02:00→16:00)
--- NOTE | 2016-06-15 02:55 | Anesthesia-Procedure Note ---
Procedure Start/Stop Time Date of Procedure: Jun 15, 2016 Start Time: 01:20 Stop Time: 02:05 Procedures/Interventions Reason for Intubation: Airway protection RSI: Yes 100% pre-Ox, [id number]: Yes Intubation Method: orotracheal Videoscope used: Yes Grade View: 1 Medications: Propofol (220), Rocuronium (50), Succinylcholine (100), Versed (2) Mask Ventilation: positive Positive End Tide CO2: Yes Breath Sounds after Intubation: bilateral-equal ETT Securred @ (cm): 23 Intubated with ease: Yes Intubation Complications: no complications Post Intubation Xray-done: Yes Progress Intubated without difficulty, assist in placement of OGT. Care turned over to: Yajaira ALLEN Arterial Line Catheter: 20G Type: Radial Location: Left Procedure: prepped, draped in sterile fashion, good wave-form was obtained, patient tolerated procedure well, no immediate complications, post procedure area cleaned, post procedure dressing applied SARAHI COSTA CRNA Jun 15, 2016 02:55
[2016-06-15] MEDS: NS IV 1000 ML 1,000 ML IV SCH ×2 (03:45→21:28)
[2016-06-15 04:38] LABS: ABG BASE EXCESS -5.6 MMOL/L (-2.5-2.5); ABG HCO3 20 MMOL/L (23-27); ABG OXYGEN SATURATION 98 % (94-100); ABG PCO2 47 MMHG (35-45); ABG PO2 110 MMHG (79-93); ABG TCO2 21.6 MMOL/L (21.0-31.0)
[2016-06-15] MEDS ORDERED: VANCOMYCIN INJECTION 2,000 MG in NS IV 500 ML 500 ML IV STA (04:38)
[2016-06-15] MEDS ORDERED: NS IV STA (04:38)
[2016-06-15] MEDS ORDERED: ACYCLOVIR IV STA (04:38)
[2016-06-15] MEDS ORDERED: cefTRIAXone INJECTION 2,000 MG in NS (IVPB) 50 ML IV STA (04:38)
[2016-06-15 04:41] LABS: ABG PH 7.26 (7.37-7.43); ALLENS TEST ART LINE
[2016-06-15 04:42] LABS: PATIENT TEMP 100
[2016-06-15 04:52] LABS: BASOPHILS % (AUTO) 0 % (0-10); EOSINOPHILS # (AUTO) 0.2 10^3/uL (0.0-0.3); EOSINOPHILS % (AUTO) 2 % (0-10); LYMPHOCYTES # (AUTO) 1.9 X 10^3 (1.0-4.0); LYMPHOCYTES % (AUTO) 17 % (12-44); MEAN CORPUSCULAR HEMOGLOBIN 29 PG (25-34); MEAN CORPUSCULAR HGB CONC 33 G/DL (32-36); MEAN CORPUSCULAR VOLUME 87 FL (80-99); MEAN PLATELET VOLUME 11.2 FL (7.4-10.4); MONOCYTES # (AUTO) 1.2 X 10^3 (0.0-1.0); MONOCYTES % (AUTO) 11 % (0-12); NEUTROPHILS # (AUTO) 7.9 X 10^3 (1.8-7.8); NEUTROPHILS % (AUTO) 70 % (42-75); PLATELET COUNT 194 10^3/uL (130-400); RED BLOOD COUNT 4.29 10^6/uL (4.35-5.85); WHITE BLOOD COUNT 11.3 10^3/uL (4.3-11.0)
[2016-06-15] MEDS ORDERED: cefTRIAXone 2 GM (ROCEPHIN) VIAL ONE (04:52)
[2016-06-15] MEDS ORDERED: VANCOMYCIN 1000 MG/VIAL ONE (04:53)
[2016-06-15] MEDS ORDERED: NS IV 500 ML 500 ML ONE (04:54)
[2016-06-15] MEDS ORDERED: NS (IVPB) 50 ML ONE ×2 (04:55→05:00)
[2016-06-15 04:57] LABS: ALANINE AMINOTRANSFERASE 34 U/L (0-55); ALBUMIN 3.2 G/DL (3.2-4.5); ANION GAP 14 MMOL/L (5-14); ASPARTATE AMINO TRANSFERASE 31 U/L (5-34); BILIRUBIN,TOTAL 0.7 MG/DL (0.1-1.0); BLOOD UREA NITROGEN 22 MG/DL (7-18); BUN/CREATININE RATIO 20; CALCIUM 8.7 MG/DL (8.5-10.1); CARBON DIOXIDE 18 MMOL/L (21-32); CHLORIDE 113 MMOL/L (98-107); CREATININE SERUM 1.08 MG/DL (0.60-1.30); GFR ESTIMATED > 60; GLUCOSE 202 MG/DL (70-105); MAGNESIUM 1.9 MG/DL (1.8-2.4); PHOSPHORUS 2.6 MG/DL (2.3-4.7); POTASSIUM 4.2 MMOL/L (3.6-5.0); SODIUM 145 MMOL/L (135-145); TOTAL PROTEIN 5.9 G/DL (6.4-8.2)
[2016-06-15 05:02] LABS: TROPONIN I < 0.30 NG/ML (<0.30)
[2016-06-15] MEDS: PROPOFOL DRIP (ICU) 100 ML IV SCH ×6 (05:15→23:38)
[2016-06-15 05:42] LABS: INR 1.1 (0.8-1.4); PROTHROMBIN TIME PATIENT 13.8 SEC (12.2-14.7)
[2016-06-15] MEDS ORDERED: PANTOPRAZOLE 40 MG/10 ML (PROTONIX) VIAL ONE (05:50)
[2016-06-15] MEDS: KCL 20 MEQ TAB (K-DUR) PO SCH (05:55)
[2016-06-15] MEDS: PANTOPRAZOLE 40 MG/10 ML (PROTONIX) VIAL IV SCH ×2 (05:55→21:55)
[2016-06-15] MEDS: POTASSIUM CL 10MEQ/50ML IVPB 50 ML IV SCH ×2 (06:00→23:40)
[2016-06-15] MEDS: MAGNESIUM 1 GM/100 ML IVPB 100 ML IV SCH ×2 (06:00→23:46)
--- NOTE | 2016-06-15 06:45 | Pulmonary Progress Note ---
Subjective Subjective/Events-last exam PT was persistently combative last night and had to be intubated. Exam Exam Vital Signs Date Time Temp Pulse Resp B/P (MAP) Pulse Ox O2 Delivery O2 Flow Rate FiO2 06/15/16 05:15 100.0 70 15 116/46 100 Nasal Cannula 40.00 06/15/16 04:30 70 15 100 Mechanical Ventilator 40.00 116/46 06/15/16 04:25 69 12 100 40 06/15/16 04:15 70 15 100 Mechanical Ventilator 40.00 119/38 06/15/16 04:00 100.0 70 18 120/60 96 Mechanical Ventilator 40.00 2.00 06/15/16 04:00 97 40 06/15/16 03:45 71 12 100 Mechanical Ventilator 40.00 131/43 06/15/16 03:42 99.1 06/15/16 03:30 75 12 149/67 99 Mechanical Ventilator 40.00 166/50 06/15/16 03:15 70 12 124/66 98 Mechanical Ventilator 40.00 130/46 06/15/16 03:00 71 12 127/66 98 Mechanical Ventilator 40.00 133/46 06/15/16 02:45 72 12 121/63 97 Mechanical Ventilator 40.00 132/44 06/15/16 02:30 84 17 165/77 97 Mechanical Ventilator 40.00 165/77 06/15/16 02:00 79 99 Mechanical Ventilator 40.00 06/15/16 01:40 95 12 98 40 06/15/16 01:40 73 15 100 Mechanical Ventilator 40.00 06/15/16 01:00 84 27 138/82 96 Nasal Cannula 2.00 06/15/16 01:00 83 06/15/16 00:00 87 30 171/87 96 Nasal Cannula 2.00 06/15/16 00:00 97 2.00 06/14/16 23:50 99.1 06/14/16 23:20 99.1 06/14/16 23:00 81 20 127/78 97 Nasal Cannula 2.00 06/14/16 22:29 99.1 77 22 198/105 98 Nasal Cannula 2.00 06/14/16 22:16 99.1 79 20 168/94 95 Nasal Cannula 2.00 06/14/16 22:00 78 22 197/122 96 Nasal Cannula 2.00 06/14/16 21:11 95 3/22/17 21:00 Nasal Cannula 2.00 06/14/16 21:00 77 18 187/104 96 Nasal Cannula 2.00 06/14/16 20:00 99.2 06/14/16 20:00 97 2.00 06/14/16 20:00 78 20 167/90 94 Nasal Cannula 2.00 06/14/16 19:00 78 21 169/96 95 Nasal Cannula 2.00 06/14/16 19:00 79 06/14/16 18:00 80 20 168/94 97 Nasal Cannula 2.00 06/14/16 18:00 80 20 168/94 96 Nasal Cannula 2.00 06/14/16 17:28 165/94 06/14/16 17:00 83 19 164/91 96 Nasal Cannula 2.00 06/14/16 17:00 83 19 164/91 96 Room Air 06/14/16 16:00 84 18 160/92 95 Nasal Cannula 2.00 06/14/16 16:00 84 18 160/84 95 Room Air 06/14/16 15:30 78 18 165/88 96 Room Air 06/14/16 15:16 97 2.00 06/14/16 14:45 80 18 156/82 96 Room Air 06/14/16 13:51 83 18 146/85 96 Room Air 06/14/16 13:39 146/97 06/14/16 13:00 83 06/14/16 12:45 85 18 145/82 97 Room Air 06/14/16 11:45 121/68 06/14/16 11:20 123 06/14/16 11:10 168/96 06/14/16 09:00 Room Air 06/14/16 08:00 96.3 110 20 171/66 95 Room Air 06/14/16 07:55 94 I & O 06/15/16 07:00 Intake Total 1300 ml Output Total 1720 ml Balance -420 ml General Appearance: Chronically ill, Mild Distress, Obese HEENT: PERRL/EOMI, Pharynx Normal Neck: Full Range of Motion, Normal Inspection, Supple Respiratory: Chest Non Tender, Lungs Clear, Normal Breath Sounds, No Accessory Muscle Use, No Respiratory Distress Cardiovascular: Regular Rate, Rhythm, No Edema, No Gallop Capillary Refill: Greater Than 3 Seconds Extremity: Normal Capillary Refill, Normal Range of Motion, Non Tender, No Calf Tenderness Neurologic/Psychiatric: Other (sedated on vent) Skin: Normal Color, Warm/Dry Lymphatic: No Adenopathy Results Lab Laboratory Tests 06/14/16 04:55 06/15/16 04:20 Assessment/Plan Assessment/Plan Combative-- intubated secondary to sedation/combative -vent AC 20/550/5/40% -Diprivan gtt metabolic encephalopathy r/o meningitis -MRI brain today -lumbar puncture today after MRI -Vanco, Rocephin, acyclovir SIRS r/o sepsis -LUmbar puncture -brumfield cultures Clinical Quality Measures DVT/VTE Risk/Contraindication: Risk Factor Score Per Nursin RFS Level Per Nursing on Admit: 4+=Very High MARCI LOPEZ DO Jun 15, 2016 06:45
[2016-06-15] MEDS ORDERED: ACYCLOVIR IV SCH ×3 (06:57→19:00)
[2016-06-15] MEDS ORDERED: NS IV SCH ×3 (06:57→19:00)
[2016-06-15] MEDS ORDERED: ACYCLOVIR INJECTION 650 MG in NS (IVPB) 250 ML IV SCH ×2 (07:17→07:30)
[2016-06-15] MEDS: RT-ADVAIR HFA 115/21 MCG PER PUFF IH SCH ×2 (08:00→20:45)
[2016-06-15 08:05] LABS: ABG BASE EXCESS -4.3 MMOL/L (-2.5-2.5); ABG HCO3 20 MMOL/L (23-27); ABG OXYGEN SATURATION 98 % (94-100); ABG PCO2 35 MMHG (35-45); ABG PH 7.38 (7.37-7.43); ABG PO2 88 MMHG (79-93)
[2016-06-15 08:07] LABS: ALLENS TEST POSITIVE; PATIENT TEMP 98.4
--- NOTE | 2016-06-15 08:29 | Diagnostic Imaging Report ---
INDICATION: Check endotracheal tube placement. COMPARISON STUDY: Chest from June 12. FINDINGS: Portable view of the chest demonstrates an endotracheal tube in good position. Orogastric tube transverses the radiograph. Infiltrates are again seen in the left perihilar region left base. Vascularity is normal. IMPRESSION: Intubated chest with infiltrates in the left perihilar and left base. Dictated by: Dictated on workstation # [id number]
--- NOTE | 2016-06-15 08:34 | Speech Therapy Progress Note ---
Therapy Progress Note The clinician attempted to follow up (third attempt) with patient regarding a dysphagia evaluation (consulted 06/13/2016). The patient was recently intubated due to combativeness and agitation. The patient is scheduled to undergo a brain MRI and lumbar puncture on this date to rule out meningitis. As the patient remains intubated, he is not appropriate for swallow evaluation. Please re- consult speech pathology once the patient is extubated and appropriate for dysphagia assessment. Thank you. CHRISTIANO HEWITT Jun 15, 2016 08:33
[2016-06-15] MEDS ORDERED: LORazepam INJ 2 MG/ML (ATIVAN) VIAL IVP ONE (09:00)
[2016-06-15] MEDS ORDERED: MIDAZOLAM 10 MG/2 ML (VERSED) VIAL IVP ONE (09:00)
[2016-06-15] MEDS ORDERED: fentaNYL INJECTION 250 MCG/5 ML AMP IVP ONE (09:00)
[2016-06-15] MEDS ORDERED: NS IV 1000 ML 1,000 ML IV SCH (09:00)
[2016-06-15] MEDS ORDERED: morphine INJ 4 MG/ML 1 ML (VIAL/SYRINGE) IVP ONE (09:00)
[2016-06-15] MEDS ORDERED: MIDAZOLAM 5 MG/5 ML (VERSED) VIAL ONE ×2 (09:06→09:37)
[2016-06-15] MEDS ORDERED: GADOBUTROL 15 MMOL/15 ML (GADAVIST) VIAL IV ONE (10:15)
--- NOTE | 2016-06-15 10:26 | Physical Therapy Progress Note ---
Therapy Progress Note Pt had been seen on 4th floor with limited ability to participate with PT. Pt transferred to ICU and currently intubated. Will discontinue PT/OT/ST services and await further orders as indicated. SANTIAGO RIVERA PT Jun 15, 2016 10:26
--- NOTE | 2016-06-15 10:35 | Diagnostic Imaging Report ---
PROCEDURE: MR imaging of the brain with and without contrast. TECHNIQUE: Multiplanar, multisequence MR imaging of the brain was performed with and without contrast. INDICATION: Altered mental status. Aggressive behavior and confusion. Question of meningitis. 12 mL of Gadovist is administered intravenously. FINDINGS: Please note that uncomplicated meningitis can be associated with normal imaging findings. There is no diffusion restriction to suggest an acute infarct or other diffusion abnormality. The brain parenchyma demonstrates normal signal in the ibarra and white matter with no significant demyelinating plaque, brain edema or enhancing mass. No hydrocephalus. No extra-axial fluid collection is seen. The central vascular flow-voids appear grossly unremarkable. The internal auditory canals of inner ear structures appear unremarkable. There is minimal mucosal thickening in the ethmoid air cells on the sphenoidal sinuses. The pituitary gland is normal in size. No sellar or pineal region mass. IMPRESSION: No acute infarct, enhancing mass or brain abscess seen. Dictated by: Dictated on workstation # [id number]
--- NOTE | 2016-06-15 10:52 | Progress Note-Hospitalist ---
Progress Note HPI/CC on Admission CC: Confusion HPI: This is a 60-year-old white male that presented to the emergency room by ambulance with altered mental status. Upon assessment of medical record I do find a history and physical dated 10/16/14 by [facility] when he was admitted for the same type complaints. Apparently he had an issue with acute renal failure likely medication related along with hypotension and resolved without residual but I'm having difficulty finding any information whatsoever about the patient since [facility] ambulance service did not transport the patient last night nor is there any family or any contact information of the patient came with. He is very confused and unable to answer any questions reliably. Progress Notes/Assess & Plan Date Seen 06/15/16 Admission Dx/Process Assessment: Altered mental status and hypotension with history of similar event back in 2014 related to acute renal failure and overmedication DM HTN Diagonsis/Assessment & Plan Dr. Deal Review: Pt was intubated early this morning. Pt is being tested for meningitis, and is obtaining MRI and lumbar puncture. MRI obtained and it revealed no acute process Difficult issue considering unknown source of complete decompensation from delirium requiring intubation due to severe aggression Intubated, Coarse BS from vent but subtle abnl No edema Assessment: Altered mental status and hypotension with history of similar event back in 2014 related to acute renal failure and overmedication now worsened requiring ICU admit with possible intubation even though ARF resolved and labs are stable. MRI negative and LP pending to r/o meningitis DM HTN Leukocytosis Plan: Intubation due to severe aggression and OOC behavior Supportive care Monitor closely [place] option? Scribed by Maged Mckinney under the direct supervision of Dr. Davis. ANGÉLICA DAVIS DO Jun 15, 2016 10:51
[2016-06-15] MEDS: CHLORHEXIDINE 0.12% SOLN 15 ML (PERIDEX) UDC PO SCH ×2 (12:30→21:55)
[2016-06-15] MEDS: RT-ALBUTEROL/IPRATROPIUM 3 ML (DUONEB) VIAL INH SCH ×3 (12:35→20:44)
[2016-06-15] MEDS: inSUlin ASPART (NovoLOG) 1 UNIT/0.01 ML (CHARGE PER UNIT) SC SCH ×3 (12:38→20:00)
[2016-06-15] MEDS ORDERED: MIDAZOLAM 5 MG/5 ML (VERSED) VIAL IVP NR (16:00)
[2016-06-15] MEDS ORDERED: ROCURONIUM 50 MG/5 ML (ZEMURON) VIAL IV NR (16:00)
[2016-06-15] MEDS ORDERED: cefTRIAXone 2 GM/NS 50 ML IVPB IV SCH ×2 (16:00)
--- NOTE | 2016-06-15 16:39 | Anesthesia-Procedure Note ---
Procedures/Interventions Discussed Risk,Benefits: No (Consent on chart, patient intubated and sedated.) Patient Consents: Yes (Phone consent given by family.) Position: Lying, L3-4, Right Sterile Technique: Yes (Sterile P/D with ChloraPrep.) Opening Pressure: Opening pressure of 29 cm CSF noted. Fluid Color: Clear fluid. Spinal Needle Used: 20g Quinke 3 1/2inch, Other (22 G Quinke) Procedure Notes Pt intubated and sedated on vent, however on entry to room he began moving considerably, restraints in place. RN stated that he needed considerable sedation for MRI (ativan, versed 8 mg, fentanyl and propofol 250 mg). I spoke with Dr Deal and considering his inability to cooperated and considerable movements, decision to give Versed 5 mg IV and Rocuronium 50 mg IV for procedure. This was both for patient and provider safety while doing LP. See above for details. No difficulty with procedure. + CSF after needle redirect times 1, clear fluid and opening pressure of 29 cm CSF noted. 2-3 ml CSF times 4 vials sent to lab. Sterile bandage applied. Pt tolerated procedure well. VSS throughout. ROSE Medeiros, assisted me with the procedure. Procedure time was 2420-3196. LUIZA RODRIGUEZ DO Jun 15, 2016 16:39
[2016-06-15 16:43] LABS: APPEARANCE,CSF CLEAR; COLOR,CSF COLORLESS; WHITE BLOOD CELL,CSF 2 CELLS (0-5)
[2016-06-15] MEDS ORDERED: VANCOMYCIN 1500 MG/NS 500 ML IVPB IV SCH ×2 (17:00)
[2016-06-15] MEDS: fentaNYL INJECTION 100 MCG/2 ML AMP IV PRN ×3 (17:06→23:21)
[2016-06-15 17:08] LABS: CSF GLUCOSE 88 MG/DL (50-80); CSF TOTAL PROTEIN 40 MG/DL (15-40)
[2016-06-15 20:52] LABS: BASOPHILS # (AUTO) 0.1 10^3/uL (0.0-0.1); BASOPHILS % (AUTO) 0 % (0-10); EOSINOPHILS # (AUTO) 0.2 10^3/uL (0.0-0.3); EOSINOPHILS % (AUTO) 2 % (0-10); LYMPHOCYTES # (AUTO) 2.3 X 10^3 (1.0-4.0); LYMPHOCYTES % (AUTO) 17 % (12-44); MEAN CORPUSCULAR HEMOGLOBIN 29 PG (25-34); MEAN CORPUSCULAR HGB CONC 33 G/DL (32-36); MEAN CORPUSCULAR VOLUME 88 FL (80-99); MEAN PLATELET VOLUME 10.9 FL (7.4-10.4); MONOCYTES # (AUTO) 1.6 X 10^3 (0.0-1.0); MONOCYTES % (AUTO) 12 % (0-12); NEUTROPHILS # (AUTO) 9.3 X 10^3 (1.8-7.8); NEUTROPHILS % (AUTO) 69 % (42-75); PLATELET COUNT 208 10^3/uL (130-400); RED BLOOD COUNT 4.13 10^6/uL (4.35-5.85); RED CELL DISTRIBUTION WIDTH 14.2 % (10.0-14.5); WHITE BLOOD COUNT 13.5 10^3/uL (4.3-11.0)
[2016-06-15] MEDS: CATHETER FLUSH 10 ML SYR IV PRN ×3 (21:52→23:22)
[2016-06-15] MEDS: THIAMINE 100 MG/ML 2 ML (VITAMIN B-1) VIAL IV SCH (21:56)
[2016-06-15 21:57] LABS: ALANINE AMINOTRANSFERASE 29 U/L (0-55); AMMONIA 29 UMOL/L (11-32); ANION GAP 10 MMOL/L (5-14); ASPARTATE AMINO TRANSFERASE 34 U/L (5-34); BLOOD UREA NITROGEN 17 MG/DL (7-18); BUN/CREATININE RATIO 20; CALCIUM 8.2 MG/DL (8.5-10.1); CARBON DIOXIDE 21 MMOL/L (21-32); CHLORIDE 113 MMOL/L (98-107); CREATININE SERUM 0.87 MG/DL (0.60-1.30); GFR ESTIMATED > 60; GLUCOSE 126 MG/DL (70-105); MAGNESIUM 1.7 MG/DL (1.8-2.4); POTASSIUM 3.4 MMOL/L (3.6-5.0); SODIUM 144 MMOL/L (135-145); hs C REACTIVE PROTEIN 13.35 MG/DL (0.00-0.50)
[2016-06-16] VITALS (34 sets, daily range): BP systolic 92–204; BP diastolic 75–126
[2016-06-16] MEDS: POTASSIUM CL 10MEQ/50ML IVPB 50 ML IV SCH ×6 (00:33→09:32)
[2016-06-16] MEDS: MAGNESIUM 1 GM/100 ML IVPB 100 ML IV SCH ×2 (00:44→06:00)
[2016-06-16 00:56] LABS: BILIRUBIN,URINE NEGATIVE (NEGATIVE); KETONES,URINE 3+ (NEGATIVE); LEUKOCYTE ESTERASE ,URINE 2+ (NEGATIVE); NITRITE,URINE NEGATIVE (NEGATIVE); PH,URINE 5 (5-9); PROTEIN,URINE 1+ (NEGATIVE); UROBILINOGEN,URINE NORMAL (NORMAL)
[2016-06-16 01:08] LABS: CALCIUM OXALATE CRYSTALS,UR FEW /LPF; SQUAMOUS EPITHELIAL CELL,UR 0-2 /HPF
[2016-06-16] MEDS: fentaNYL INJECTION 100 MCG/2 ML AMP IV PRN ×2 (02:26→04:40)
[2016-06-16] MEDS: CATHETER FLUSH 10 ML SYR IV PRN (02:26)
[2016-06-16] MEDS: PROPOFOL DRIP (ICU) 100 ML IV SCH ×6 (03:14→22:18)
[2016-06-16 03:39] LABS: BASOPHILS % (AUTO) 0 % (0-10); EOSINOPHILS # (AUTO) 0.3 10^3/uL (0.0-0.3); EOSINOPHILS % (AUTO) 3 % (0-10); LYMPHOCYTES # (AUTO) 2.4 X 10^3 (1.0-4.0); LYMPHOCYTES % (AUTO) 20 % (12-44); MEAN CORPUSCULAR HEMOGLOBIN 29 PG (25-34); MEAN CORPUSCULAR HGB CONC 33 G/DL (32-36); MEAN CORPUSCULAR VOLUME 87 FL (80-99); MEAN PLATELET VOLUME 10.5 FL (7.4-10.4); MONOCYTES # (AUTO) 1.4 X 10^3 (0.0-1.0); MONOCYTES % (AUTO) 12 % (0-12); NEUTROPHILS # (AUTO) 7.5 X 10^3 (1.8-7.8); NEUTROPHILS % (AUTO) 64 % (42-75); PLATELET COUNT 218 10^3/uL (130-400); RED BLOOD COUNT 4.05 10^6/uL (4.35-5.85); RED CELL DISTRIBUTION WIDTH 14.1 % (10.0-14.5); WHITE BLOOD COUNT 11.6 10^3/uL (4.3-11.0)
[2016-06-16 03:59] LABS: ANION GAP 12 MMOL/L (5-14); BLOOD UREA NITROGEN 15 MG/DL (7-18); BUN/CREATININE RATIO 18; CALCIUM 8.2 MG/DL (8.5-10.1); CARBON DIOXIDE 17 MMOL/L (21-32); CHLORIDE 115 MMOL/L (98-107); CREATININE SERUM 0.84 MG/DL (0.60-1.30); GFR ESTIMATED > 60; GLUCOSE 114 MG/DL (70-105); PHOSPHORUS 2.7 MG/DL (2.3-4.7); POTASSIUM 3.2 MMOL/L (3.6-5.0); SODIUM 144 MMOL/L (135-145)
[2016-06-16] MEDS: inSUlin ASPART (NovoLOG) 1 UNIT/0.01 ML (CHARGE PER UNIT) SC SCH ×7 (04:01→23:45)
[2016-06-16 04:39] LABS: ABG BASE EXCESS -3.6 MMOL/L (-2.5-2.5); ABG HCO3 21 MMOL/L (23-27); ABG OXYGEN SATURATION 98 % (94-100); ABG PCO2 39 MMHG (35-45); ABG PH 7.35 (7.37-7.43); ABG PO2 98 MMHG (79-93); ABG TCO2 22.2 MMOL/L (21.0-31.0)
[2016-06-16 04:40] LABS: ALLENS TEST YES-POS; PATIENT TEMP 98.4
[2016-06-16] MEDS: KCL 20 MEQ TAB (K-DUR) PO SCH (06:00)
[2016-06-16] MEDS: RT-ALBUTEROL/IPRATROPIUM 3 ML (DUONEB) VIAL INH SCH ×3 (06:36→19:27)
[2016-06-16] MEDS: NS IV 1000 ML 1,000 ML IV SCH ×3 (07:22→23:15)
--- NOTE | 2016-06-16 07:23 | Diagnostic Imaging Report ---
INDICATION: Shortness of breath. Portable chest 4:54 AM FINDINGS: There is an ET tube projecting over the trachea. NG tube projects over the stomach. Heart size and pulmonary vascularity are normal. Lungs are clear. There are no effusions or pneumothoraces. IMPRESSION: No acute abnormalities in the chest. Dictated by: Dictated on workstation # [id number]
[2016-06-16] MEDS: RT-ADVAIR HFA 115/21 MCG PER PUFF IH SCH ×2 (07:41→22:01)
--- NOTE | 2016-06-16 07:44 | Pulmonary Progress Note ---
Subjective Subjective/Events-last exam PT is still combative and requiring high dose Diprivan Exam Exam Vital Signs Date Time Temp Pulse Resp B/P (MAP) Pulse Ox O2 Delivery O2 Flow Rate FiO2 06/16/16 06:45 97 06/16/16 06:36 96 20 99 40 06/16/16 06:00 93 177/82 99 Mechanical Ventilator 40.00 06/16/16 05:00 92 152/80 99 Mechanical Ventilator 40.00 06/16/16 04:33 98 21 100 06/16/16 04:20 97 20 100 06/16/16 04:01 94 20 100 40 06/16/16 04:00 100 40 06/16/16 04:00 98.4 96 16 139/76 100 Mechanical Ventilator 40.00 06/16/16 03:14 90 20 171/87 Mechanical Ventilator 40.00 06/16/16 03:00 89 19 193/97 100 Mechanical Ventilator 40.00 06/16/16 02:05 91 20 100 40 06/16/16 02:00 93 20 184/94 100 Mechanical Ventilator 40.00 06/16/16 01:12 95 06/16/16 01:00 95 20 177/110 100 Mechanical Ventilator 40.00 06/16/16 00:00 98.7 94 19 202/100 100 Mechanical Ventilator 40.00 06/16/16 00:00 93 20 100 40 06/16/16 00:00 100 40 06/15/16 23:38 96 19 160/81 100 Mechanical Ventilator 40.00 06/15/16 23:00 101 19 219/110 100 Mechanical Ventilator 40.00 06/15/16 22:00 101 19 172/84 100 Mechanical Ventilator 40.00 06/15/16 21:59 100 20 100 40 06/15/16 21:00 96 19 193/100 100 Mechanical Ventilator 40.00 06/15/16 20:51 104 26 99 40 06/15/16 20:45 104 26 99 40 06/15/16 20:00 100 40 06/15/16 20:00 98.6 94 20 174/80 100 Mechanical Ventilator 40.00 06/15/16 20:00 97 11 101/79 Mechanical Ventilator 40.00 06/15/16 19:00 93 06/15/16 19:00 93 20 173/83 100 Mechanical Ventilator 40.00 3/23/17 18:15 93 20 100 40 06/15/16 18:00 96 19 149/72 100 Mechanical Ventilator 40.00 06/15/16 17:03 170/78 06/15/16 17:00 114 21 125/70 99 Mechanical Ventilator 40.00 06/15/16 16:15 78 20 98 40 06/15/16 16:05 100 40 06/15/16 16:00 112 19 181/108 98 Mechanical Ventilator 40.00 06/15/16 16:00 97.3 06/15/16 15:00 98 19 180/86 100 Mechanical Ventilator 40.00 98/73 06/15/16 14:00 75 20 170/87 100 Mechanical Ventilator 40.00 154/68 06/15/16 13:15 139/73 06/15/16 13:00 70 06/15/16 13:00 79 20 100 40 06/15/16 13:00 72 19 154/80 100 Mechanical Ventilator 40.00 139/60 06/15/16 12:20 100 40 06/15/16 12:00 75 20 128/70 99 Mechanical Ventilator 40.00 118/47 06/15/16 12:00 97.2 06/15/16 11:00 76 19 121/66 98 Mechanical Ventilator 40.00 96/46 06/15/16 09:30 73 20 100 40 06/15/16 09:20 138/75 06/15/16 09:00 78 73/60 100 Mechanical Ventilator 40.00 06/15/16 08:02 100 40 06/15/16 08:00 71 122/69 99 Mechanical Ventilator 40.00 125/45 06/15/16 08:00 98.3 I & O 06/16/16 07:00 Intake Total 3540.5 ml Output Total 2400 ml Balance 1140.5 ml General Appearance: Chronically ill, Mild Distress, Obese HEENT: PERRL/EOMI, Pharynx Normal Neck: Full Range of Motion, Normal Inspection, Supple Respiratory: Chest Non Tender, Lungs Clear, Normal Breath Sounds, No Accessory Muscle Use, No Respiratory Distress Cardiovascular: Regular Rate, Rhythm, No Edema, No Gallop Capillary Refill: Greater Than 3 Seconds Extremity: Normal Capillary Refill, Normal Range of Motion, Non Tender, No Calf Tenderness Neurologic/Psychiatric: Other (sedated on vent) Skin: Normal Color, Warm/Dry Lymphatic: No Adenopathy Results Lab Laboratory Tests 06/15/16 04:20 06/15/16 20:40 06/15/16 21:32 06/16/16 03:28 Assessment/Plan Assessment/Plan Combative-- intubated secondary to sedation/combative -- still combative not able to wean sedation -vent AC 20/550/5/40% -Diprivan gtt -- currently on 50mcg -Start Haldol at 2mg IV Q6 RTC, fentanyl gtt at 25mcg/hr, and precedex gtt , metabolic encephalopathy r/o meningitis -MRI brain -lumbar puncture appears negative -Vanco, Rocephin, acyclovir SIRS r/o sepsis -LUmbar puncture -brumfield cultures electrolyte replacement Clinical Quality Measures DVT/VTE Risk/Contraindication: Risk Factor Score Per Nursin RFS Level Per Nursing on Admit: 4+=Very High MARCI LOPEZ DO Jun 16, 2016 07:44
[2016-06-16] MEDS ORDERED: HALOPERIDOL 5 MG/ML (HALDOL) AMP IV PRN (07:45)
[2016-06-16] MEDS ORDERED: HALOPERIDOL 5 MG/ML (HALDOL) AMP IV NR (08:27)
[2016-06-16] MEDS: PANTOPRAZOLE 40 MG/10 ML (PROTONIX) VIAL IV SCH ×2 (08:51→20:17)
[2016-06-16] MEDS: GABAPENTIN 600 MG (NEURONTIN) TAB PO SCH ×3 (09:32→20:17)
[2016-06-16] MEDS: THIAMINE 100 MG/ML 2 ML (VITAMIN B-1) VIAL IV SCH (09:32)
[2016-06-16] MEDS: CHLORHEXIDINE 0.12% SOLN 15 ML (PERIDEX) UDC PO SCH ×2 (09:32→20:17)
[2016-06-16] MEDS: DEXMEDETOMIDINE PRE-MIX 100 ML IV SCH ×3 (09:33→20:18)
--- NOTE | 2016-06-16 10:31 | Progress Note-Hospitalist ---
Progress Note HPI/CC on Admission CC: Confusion HPI: This is a 60-year-old white male that presented to the emergency room by ambulance with altered mental status. Upon assessment of medical record I do find a history and physical dated 10/16/14 by [facility] when he was admitted for the same type complaints. Apparently he had an issue with acute renal failure likely medication related along with hypotension and resolved without residual but I'm having difficulty finding any information whatsoever about the patient since [facility] ambulance service did not transport the patient last night nor is there any family or any contact information of the patient came with. He is very confused and unable to answer any questions reliably. Progress Notes/Assess & Plan Date Seen 06/16/16 Admission Dx/Process Assessment: Altered mental status and hypotension with history of similar event back in 2014 related to acute renal failure and overmedication DM HTN Diagonsis/Assessment & Plan Chart Review: No fever Vitals stable WBC 11.6 ABG 7.35/39/98 K+ 3.2 on supplement CSF analysis negative Conferred with [facility] since this could be long-term Patient interview: Pt not awake during visit Physical exam stable Intubated, Coarse BS from vent but subtle abnl No edema Assessment: Altered mental status and hypotension with history of similar event back in 2014 related to acute renal failure and overmedication now worsened requiring ICU admit with possible intubation even though ARF resolved and labs are stable. MRI negative and LP negative DM HTN Leukocytosis Plan: Intubation due to severe aggression and OOC behavior Supportive care Monitor closely [facility] option? Scribed by Maged Mckinney under the direct supervision of Dr. Shrestha. ANGÉLICA SHRESTHA DO Jun 16, 2016 10:31
[2016-06-16] MEDS: fentaNYL PCA 300 MCG/30 ML VIAL IV PRN ×2 (10:46→21:35)
[2016-06-16] MEDS: HALOPERIDOL 5 MG/ML (HALDOL) AMP IV SCH ×2 (15:09→22:21)
[2016-06-16] MEDS ORDERED: TROUGH ORDER-PHARMACY XX NR (16:00)
[2016-06-16] MEDS: LORazepam INJ 2 MG/ML (ATIVAN) VIAL IVP PRN (20:17)
[2016-06-17] VITALS (32 sets, daily range): BP systolic 110–147; BP diastolic 45–77
[2016-06-17] MEDS: DEXMEDETOMIDINE PRE-MIX 100 ML IV SCH ×5 (00:39→20:29)
[2016-06-17] MEDS: PROPOFOL DRIP (ICU) 100 ML IV SCH ×5 (02:21→23:46)
[2016-06-17] MEDS: NS IV 1000 ML 1,000 ML IV SCH ×3 (03:47→23:45)
[2016-06-17 04:10] LABS: BASOPHILS # (AUTO) 0.1 10^3/uL (0.0-0.1); BASOPHILS % (AUTO) 1 % (0-10); EOSINOPHILS # (AUTO) 0.3 10^3/uL (0.0-0.3); EOSINOPHILS % (AUTO) 4 % (0-10); LYMPHOCYTES # (AUTO) 2.5 X 10^3 (1.0-4.0); LYMPHOCYTES % (AUTO) 31 % (12-44); MEAN CORPUSCULAR HEMOGLOBIN 29 PG (25-34); MEAN CORPUSCULAR HGB CONC 34 G/DL (32-36); MEAN CORPUSCULAR VOLUME 85 FL (80-99); MEAN PLATELET VOLUME 10.5 FL (7.4-10.4); MONOCYTES % (AUTO) 12 % (0-12); NEUTROPHILS # (AUTO) 4.2 X 10^3 (1.8-7.8); NEUTROPHILS % (AUTO) 52 % (42-75); PLATELET COUNT 216 10^3/uL (130-400); RED CELL DISTRIBUTION WIDTH 13.8 % (10.0-14.5); WHITE BLOOD COUNT 8.1 10^3/uL (4.3-11.0)
[2016-06-17 04:14] LABS: ABG BASE EXCESS -3.9 MMOL/L (-2.5-2.5); ABG HCO3 20 MMOL/L (23-27); ABG OXYGEN SATURATION 94 % (94-100); ABG PCO2 32 MMHG (35-45); ABG PH 7.42 (7.37-7.43); ABG PO2 61 MMHG (79-93)
[2016-06-17 04:16] LABS: ALLENS TEST YES-POS; PATIENT TEMP 97.5
[2016-06-17 04:29] LABS: ANION GAP 12 MMOL/L (5-14); BLOOD UREA NITROGEN 10 MG/DL (7-18); BUN/CREATININE RATIO 12; CALCIUM 8.5 MG/DL (8.5-10.1); CARBON DIOXIDE 18 MMOL/L (21-32); CHLORIDE 115 MMOL/L (98-107); CREATININE SERUM 0.83 MG/DL (0.60-1.30); GFR ESTIMATED > 60; GLUCOSE 169 MG/DL (70-105); MAGNESIUM 1.6 MG/DL (1.8-2.4); POTASSIUM 3.2 MMOL/L (3.6-5.0); SODIUM 145 MMOL/L (135-145)
[2016-06-17] MEDS: POTASSIUM CL 10MEQ/50ML IVPB 50 ML IV SCH ×5 (04:50→08:57)
[2016-06-17] MEDS: MAGNESIUM 1 GM/100 ML IVPB 100 ML IV SCH ×3 (04:51→06:19)
[2016-06-17] MEDS: KCL 20 MEQ TAB (K-DUR) PO SCH (04:51)
[2016-06-17] MEDS: HALOPERIDOL 5 MG/ML (HALDOL) AMP IV SCH ×3 (05:01→21:41)
[2016-06-17] MEDS: inSUlin ASPART (NovoLOG) 1 UNIT/0.01 ML (CHARGE PER UNIT) SC SCH ×5 (05:01→20:03)
--- NOTE | 2016-06-17 06:07 | Pulmonary Progress Note ---
Subjective Subjective/Events-last exam Pt is doing better today. scheduled haldol appears to be helping. Will decrease diprivan down to 10mcg and continue titrating. Exam Exam Vital Signs Date Time Temp Pulse Resp B/P (MAP) Pulse Ox O2 Delivery O2 Flow Rate FiO2 06/17/16 05:49 97.9 85 22 128/53 98 Mechanical Ventilator 21.00 06/17/16 05:28 85 128/53 98 Mechanical Ventilator 21.00 06/17/16 05:00 85 22 95 06/17/16 04:40 92 26 97 21 06/17/16 04:30 22 06/17/16 04:17 97.8 Mechanical Ventilator 21.00 06/17/16 04:00 81 20 124/53 98 Mechanical Ventilator 21.00 06/17/16 04:00 98 21 06/17/16 03:00 81 19 134/60 98 Mechanical Ventilator 21.00 06/17/16 02:21 81 06/17/16 02:12 77 20 97 21 06/17/16 02:00 76 19 133/62 97 Mechanical Ventilator 21.00 06/17/16 01:50 80 06/17/16 01:00 81 19 144/68 97 Mechanical Ventilator 21.00 06/17/16 00:39 98.4 81 20 143/67 97 Mechanical Ventilator 30.00 06/17/16 00:07 81 20 97 21 06/17/16 00:00 97 21 06/16/16 23:52 98.9 Mechanical Ventilator 21.00 06/16/16 23:00 80 19 93/81 97 Mechanical Ventilator 30.00 06/16/16 22:18 81 06/16/16 22:02 76 20 98 21 06/16/16 22:00 76 20 95/83 99 Mechanical Ventilator 30.00 06/16/16 21:35 20 06/16/16 21:00 80 20 92/80 99 Mechanical Ventilator 30.00 06/16/16 20:18 85 06/16/16 20:00 82 118/107 98 Mechanical Ventilator 30.00 06/16/16 20:00 100 21 06/16/16 19:59 97.8 Mechanical Ventilator 21.00 06/16/16 19:28 82 20 98 21 06/16/16 19:00 86 134/126 98 Mechanical Ventilator 30.00 06/16/16 19:00 86 06/16/16 18:32 98.4 87 20 157/81 97 Mechanical Ventilator 30.00 06/16/16 18:00 85 161/82 97 Mechanical Ventilator 30.00 06/16/16 17:00 86 166/86 98 Mechanical Ventilator 30.00 06/16/16 16:20 87 20 97 21 06/16/16 16:00 100 21 06/16/16 16:00 89 160/82 97 Mechanical Ventilator 30.00 06/16/16 15:00 102 149/79 96 Mechanical Ventilator 30.00 06/16/16 14:33 82 20 99 21 06/16/16 14:00 81 155/80 98 Mechanical Ventilator 30.00 06/16/16 13:06 98.4 88 20 151/85 100 Mechanical Ventilator 30.00 06/16/16 13:03 98.4 88 20 151/85 100 Mechanical Ventilator 40.00 06/16/16 13:00 81 150/87 98 Mechanical Ventilator 30.00 06/16/16 13:00 82 06/16/16 12:00 100 21 06/16/16 12:00 100.1 81 100 Mechanical Ventilator 30.00 06/16/16 11:51 88 20 100 21 06/16/16 11:00 81 151/85 100 Mechanical Ventilator 30.00 06/16/16 10:51 84 20 100 30 06/16/16 10:00 93 148/75 100 Mechanical Ventilator 30.00 06/16/16 09:35 98.4 98 20 180/81 99 Mechanical Ventilator 40.00 06/16/16 09:33 98.4 98 20 180/81 99 Mechanical Ventilator 40.00 06/16/16 09:00 111 156/80 100 Mechanical Ventilator 30.00 06/16/16 08:00 105 204/91 100 Mechanical Ventilator 30.00 06/16/16 08:00 100 30 06/16/16 07:42 98 20 99 30 06/16/16 07:00 185/86 98 Mechanical Ventilator 30.00 06/16/16 07:00 100.1 110 100 Mechanical Ventilator 30.00 06/16/16 07:00 105 06/16/16 06:45 97 06/16/16 06:36 96 20 99 40 I & O 06/17/16 07:00 Intake Total 1400 ml Output Total 1650 ml Balance -250 ml General Appearance: No Apparent Distress, Chronically ill, Obese HEENT: PERRL/EOMI, Pharynx Normal Neck: Full Range of Motion, Normal Inspection, Supple Respiratory: Chest Non Tender, Lungs Clear, Normal Breath Sounds, No Accessory Muscle Use, No Respiratory Distress Cardiovascular: Regular Rate, Rhythm, No Edema, No Gallop Capillary Refill: Greater Than 3 Seconds Extremity: Normal Capillary Refill, Normal Range of Motion, Non Tender, No Calf Tenderness Neurologic/Psychiatric: Other (sedated on vent) Skin: Normal Color, Warm/Dry Lymphatic: No Adenopathy Results Lab Laboratory Tests 06/15/16 20:40 06/15/16 21:32 06/16/16 03:28 06/17/16 04:00 Assessment/Plan Assessment/Plan Combative-- intubated secondary to sedation/combative -- still combative not able to wean sedation -vent AC 20/550/5/40% -Diprivan gtt -- currently [id number] -- Will decrease down to 10 mcg -Start Haldol at 2mg IV Q6 RTC, fentanyl gtt at 25mcg/hr, and precedex gtt , metabolic encephalopathy r/o meningitis -MRI brain -lumbar puncture appears negative -Vanco, Rocephin, acyclovir SIRS r/o sepsis -LUmbar puncture is negative -brumfield cultures electrolyte replacement Clinical Quality Measures DVT/VTE Risk/Contraindication: Risk Factor Score Per Nursin RFS Level Per Nursing on Admit: 4+=Very High MARCI LOPEZ DO Jun 17, 2016 06:06
[2016-06-17] MEDS: RT-ALBUTEROL/IPRATROPIUM 3 ML (DUONEB) VIAL INH SCH ×3 (06:37→18:32)
[2016-06-17] MEDS: RT-ADVAIR HFA 115/21 MCG PER PUFF IH SCH ×2 (06:37→18:32)
[2016-06-17] MEDS: morphine INJ 4 MG/ML 1 ML (VIAL/SYRINGE) IVP PRN ×2 (07:26→19:16)
--- NOTE | 2016-06-17 07:57 | Diagnostic Imaging Report ---
INDICATION: Respiratory distress Portable chest shows normal heart size and vascularity. There is bilateral discoid atelectasis. No infiltrates or effusions are seen. The ET tube and OG tube remain in place. IMPRESSION: There is slightly more discoid atelectasis, otherwise the chest is stable compared to the prior exam from 06/16/16. Dictated by: Dictated on workstation # [id number]
[2016-06-17] MEDS: CHLORHEXIDINE 0.12% SOLN 15 ML (PERIDEX) UDC PO SCH ×2 (08:57→20:03)
[2016-06-17] MEDS: GABAPENTIN 600 MG (NEURONTIN) TAB PO SCH ×3 (08:57→20:04)
[2016-06-17] MEDS: THIAMINE 100 MG/ML 2 ML (VITAMIN B-1) VIAL IV SCH (08:57)
[2016-06-17] MEDS: PANTOPRAZOLE 40 MG/10 ML (PROTONIX) VIAL IV SCH ×2 (08:57→20:03)
[2016-06-17] MEDS: fentaNYL PCA 300 MCG/30 ML VIAL IV PRN ×3 (09:05→20:54)
--- NOTE | 2016-06-17 12:13 | Progress Note-Hospitalist ---
Subjective HPI/CC On Admission CC: Confusion HPI: This is a 60-year-old white male that presented to the emergency room by ambulance with altered mental status. Upon assessment of medical record I do find a history and physical dated 10/16/14 by [facility] when he was admitted for the same type complaints. Apparently he had an issue with acute renal failure likely medication related along with hypotension and resolved without residual but I'm having difficulty finding any information whatsoever about the patient since [facility] ambulance service did not transport the patient last night nor is there any family or any contact information of the patient came with. He is very confused and unable to answer any questions reliably. Date Seen 06/17/16 Subjective/Events-last exam patient sedated on vent. He is ventilating easily in no acute distress. Objective Exam Vital Signs Vital Sign - Last 12Hours 06/12/16 06/15/16 12:50 01:40 Temp 100.1 Pulse 109 Resp 18 B/P (MAP) 108/69 Pulse Ox 90 FiO2 40 Capillary Refill : Greater Than 3 Seconds Respiratory: Lungs Clear, No Accessory Muscle Use, No Respiratory Distress Cardiovascular: Regular Rate, Rhythm, No Edema, No Gallop, No JVD, No Murmur, Normal Peripheral Pulses Gastrointestinal: Normal Bowel Sounds, No Organomegaly, Soft Extremity: No Pedal Edema Results/Procedures Lab Laboratory Tests 06/17/16 04:00 Assessment/Plan Assessment and Plan Assess & Plan/Chief Complaint 1. Altered mental status with delirium requiring ventilation for airway protection defer to Dr. Deal. 2. Hypokalemia being replaced. 3. No evidence for infection at this time. JEYSON ZHENG MD Jun 17, 2016 12:13
[2016-06-17] MEDS: HALOPERIDOL 5 MG/ML (HALDOL) AMP IV PRN (19:15)
[2016-06-18] VITALS (30 sets, daily range): BP systolic 106–149; BP diastolic 48–104
[2016-06-18] MEDS: inSUlin ASPART (NovoLOG) 1 UNIT/0.01 ML (CHARGE PER UNIT) SC SCH ×7 (00:24→23:59)
[2016-06-18] MEDS: DEXMEDETOMIDINE PRE-MIX 100 ML IV SCH ×4 (00:47→12:52)
[2016-06-18] MEDS: fentaNYL PCA 300 MCG/30 ML VIAL IV PRN ×4 (02:42→20:26)
[2016-06-18] MEDS: HALOPERIDOL 5 MG/ML (HALDOL) AMP IV PRN ×3 (04:18→17:33)
[2016-06-18] MEDS: morphine INJ 4 MG/ML 1 ML (VIAL/SYRINGE) IVP PRN ×5 (04:19→21:21)
[2016-06-18] MEDS: PROPOFOL DRIP (ICU) 100 ML IV SCH ×2 (04:23→21:46)
[2016-06-18 04:25] LABS: ABG BASE EXCESS -2.7 MMOL/L (-2.5-2.5); ABG HCO3 22 MMOL/L (23-27); ABG OXYGEN SATURATION 99 % (94-100); ABG PCO2 42 MMHG (35-45); ABG PH 7.35 (7.37-7.43); ABG PO2 180 MMHG (79-93); ABG TCO2 23.2 MMOL/L (21.0-31.0)
[2016-06-18 04:26] LABS: ALLENS TEST YES-POS; PATIENT TEMP 99.5
[2016-06-18 04:28] LABS: BASOPHILS % (AUTO) 0 % (0-10); EOSINOPHILS # (AUTO) 0.4 10^3/uL (0.0-0.3); EOSINOPHILS % (AUTO) 4 % (0-10); LYMPHOCYTES # (AUTO) 2.8 X 10^3 (1.0-4.0); LYMPHOCYTES % (AUTO) 30 % (12-44); MEAN CORPUSCULAR HEMOGLOBIN 29 PG (25-34); MEAN CORPUSCULAR HGB CONC 34 G/DL (32-36); MEAN CORPUSCULAR VOLUME 85 FL (80-99); MEAN PLATELET VOLUME 10.4 FL (7.4-10.4); MONOCYTES # (AUTO) 1.1 X 10^3 (0.0-1.0); MONOCYTES % (AUTO) 12 % (0-12); NEUTROPHILS % (AUTO) 54 % (42-75); PLATELET COUNT 252 10^3/uL (130-400); RED BLOOD COUNT 4.64 10^6/uL (4.35-5.85); RED CELL DISTRIBUTION WIDTH 14.1 % (10.0-14.5); WHITE BLOOD COUNT 9.3 10^3/uL (4.3-11.0)
[2016-06-18 04:52] LABS: ANION GAP 9 MMOL/L (5-14); BLOOD UREA NITROGEN 8 MG/DL (7-18); BUN/CREATININE RATIO 10; CALCIUM 8.5 MG/DL (8.5-10.1); CARBON DIOXIDE 21 MMOL/L (21-32); CHLORIDE 115 MMOL/L (98-107); CREATININE SERUM 0.82 MG/DL (0.60-1.30); GFR ESTIMATED > 60; GLUCOSE 173 MG/DL (70-105); MAGNESIUM 1.6 MG/DL (1.8-2.4); PHOSPHORUS 3.5 MG/DL (2.3-4.7); POTASSIUM 3.3 MMOL/L (3.6-5.0); SODIUM 145 MMOL/L (135-145)
[2016-06-18] MEDS: POTASSIUM CL 10MEQ/50ML IVPB 50 ML IV SCH ×5 (05:22→08:51)
[2016-06-18] MEDS: MAGNESIUM 1 GM/100 ML IVPB 100 ML IV SCH ×3 (05:23→06:57)
[2016-06-18] MEDS: KCL 20 MEQ TAB (K-DUR) PO SCH (05:23)
[2016-06-18] MEDS: HALOPERIDOL 5 MG/ML (HALDOL) AMP IV SCH ×3 (05:51→22:07)
[2016-06-18] MEDS: RT-ADVAIR HFA 115/21 MCG PER PUFF IH SCH ×2 (08:00→18:21)
[2016-06-18] MEDS: RT-ALBUTEROL/IPRATROPIUM 3 ML (DUONEB) VIAL INH SCH ×3 (08:17→18:21)
[2016-06-18] MEDS: GABAPENTIN 600 MG (NEURONTIN) TAB PO SCH ×3 (08:30→21:08)
[2016-06-18] MEDS: PANTOPRAZOLE 40 MG/10 ML (PROTONIX) VIAL IV SCH ×2 (08:30→21:08)
[2016-06-18] MEDS: CHLORHEXIDINE 0.12% SOLN 15 ML (PERIDEX) UDC PO SCH ×2 (08:30→21:08)
[2016-06-18] MEDS: THIAMINE 100 MG/ML 2 ML (VITAMIN B-1) VIAL IV SCH (08:30)
[2016-06-18] MEDS: NS IV 1000 ML 1,000 ML IV SCH ×2 (09:47→19:45)
--- NOTE | 2016-06-18 09:49 | Diagnostic Imaging Report ---
INDICATION: Intubation. FINDINGS: Upright chest shows normal heart size and vascularity. There is basilar discoid atelectasis. No effusion or pneumothorax is seen. The ET tube is in good position. OG tube is present. IMPRESSION: There is bibasilar discoid atelectasis with slight improved aeration of the lung bases since 06/17/2016. Dictated by: Dictated on workstation # [id number]
--- NOTE | 2016-06-18 10:33 | Pulmonary Progress Note ---
Subjective Subjective/Events-last exam Pt is doing better Exam Exam Vital Signs Date Time Temp Pulse Resp B/P (MAP) Pulse Ox O2 Delivery O2 Flow Rate FiO2 06/18/16 10:25 109/54 06/18/16 08:58 99.5 06/18/16 08:58 99.5 06/18/16 08:34 99.5 06/18/16 08:28 20 06/18/16 08:00 81 116/56 98 Mechanical Ventilator 21.00 06/18/16 07:00 75 20 123/58 98 Mechanical Ventilator 21.00 06/18/16 07:00 75 06/18/16 06:36 75 20 98 21 06/18/16 06:00 77 19 119/60 97 Mechanical Ventilator 21.00 06/18/16 05:22 77 06/18/16 05:00 77 19 106/48 98 Mechanical Ventilator 21.00 06/18/16 04:26 90 22 95 06/18/16 04:23 79 06/18/16 04:15 79 20 98 21 06/18/16 04:12 81 23 96 21 06/18/16 04:00 97 21 06/18/16 03:52 99.5 Mechanical Ventilator 21.00 06/18/16 03:00 79 19 116/56 99 Mechanical Ventilator 21.00 06/18/16 02:42 20 06/18/16 02:15 79 20 99 21 06/18/16 02:00 79 19 115/54 99 Mechanical Ventilator 21.00 06/18/16 01:00 80 20 120/56 99 Mechanical Ventilator 21.00 06/18/16 01:00 80 06/18/16 00:47 81 06/18/16 00:16 82 20 99 21 06/18/16 00:06 99.1 82 20 123/57 99 Mechanical Ventilator 21.00 06/18/16 00:00 97 21 06/17/16 23:46 81 06/17/16 23:00 83 19 126/56 99 Mechanical Ventilator 21.00 06/17/16 22:00 85 19 122/56 99 Mechanical Ventilator 21.00 06/17/16 21:00 91 20 120/59 99 Mechanical Ventilator 21.00 06/17/16 20:54 20 06/17/16 20:40 93 20 99 21 06/17/16 20:29 94 06/17/16 20:00 93 19 123/56 99 Mechanical Ventilator 21.00 06/17/16 20:00 97 21 06/17/16 19:16 100.0 96 16 129/60 97 Mechanical Ventilator 21.00 06/17/16 19:10 96 06/17/16 19:00 92 06/17/16 18:32 89 20 98 21 06/17/16 18:00 90 19 144/77 97 Mechanical Ventilator 21.00 06/17/16 17:00 92 20 147/77 98 Mechanical Ventilator 21.00 06/17/16 16:47 99.6 06/17/16 16:30 90 20 99 21 06/17/16 16:00 90 19 130/64 99 Mechanical Ventilator 21.00 06/17/16 16:00 98 21 06/17/16 15:18 100.6 90 20 110/53 96 Mechanical Ventilator 21.00 06/17/16 15:06 20 06/17/16 15:00 92 20 131/63 99 Mechanical Ventilator 21.00 06/17/16 14:00 90 19 115/51 98 Mechanical Ventilator 21.00 06/17/16 13:51 90 20 96 21 06/17/16 13:00 89 06/17/16 13:00 89 20 110/53 98 Mechanical Ventilator 21.00 06/17/16 12:52 100.6 91 20 114/62 96 Mechanical Ventilator 21.00 06/17/16 12:00 98 21 06/17/16 12:00 98.0 06/17/16 12:00 90 20 121/58 98 Mechanical Ventilator 21.00 06/17/16 11:00 91 19 120/63 97 Mechanical Ventilator 21.00 06/17/16 10:52 91 20 96 21 I & O 06/18/16 07:00 Intake Total 1000 ml Output Total 4650 ml Balance -3650 ml General Appearance: No Apparent Distress, Chronically ill HEENT: PERRL/EOMI, Pharynx Normal Neck: Full Range of Motion, Normal Inspection, Supple Respiratory: Lungs Clear, No Accessory Muscle Use, No Respiratory Distress Cardiovascular: Regular Rate, Rhythm, No Edema, No Gallop, No JVD, No Murmur, Normal Peripheral Pulses Capillary Refill: Greater Than 3 Seconds Extremity: No Pedal Edema Neurologic/Psychiatric: Other (sedated on vent) Skin: Normal Color, Warm/Dry Lymphatic: No Adenopathy Results Lab Laboratory Tests 06/17/16 04:00 06/18/16 04:10 Assessment/Plan Assessment/Plan Combative-- intubated secondary to sedation/combative -- still combative not able to wean sedation -vent AC 20/550/5/40% -Diprivan gtt -- currently [id number] -- Will decrease down to 10 mcg - Haldol at 2mg IV Q6 RTC, fentanyl gtt at 25mcg/hr, and precedex gtt, metabolic encephalopathy r/o meningitis -MRI brain -lumbar puncture appears negative -Vanco, Rocephin, acyclovir SIRS r/o sepsis -LUmbar puncture is negative -brumfield cultures electrolyte replacement Clinical Quality Measures DVT/VTE Risk/Contraindication: Risk Factor Score Per Nursin RFS Level Per Nursing on Admit: 4+=Very High MARCI LOPEZ DO Jun 18, 2016 10:33
--- NOTE | 2016-06-18 10:37 | Progress Note-Hospitalist ---
Subjective HPI/CC On Admission CC: Confusion HPI: This is a 60-year-old white male that presented to the emergency room by ambulance with altered mental status. Upon assessment of medical record I do find a history and physical dated 10/16/14 by [facility] when he was admitted for the same type complaints. Apparently he had an issue with acute renal failure likely medication related along with hypotension and resolved without residual but I'm having difficulty finding any information whatsoever about the patient since [facility] ambulance service did not transport the patient last night nor is there any family or any contact information of the patient came with. He is very confused and unable to answer any questions reliably. Date Seen 06/18/16 Subjective/Events-last exam nursing staff reports several failed attempts at sedation vacation. Patient becomes extremely agitated throughout to himself with any lightening of current sedation. During today's evaluation physical stimulation leads to mild agitation patient moving all extremities. Objective Exam Vital Signs Vital Sign - Last 12Hours 06/12/16 06/15/16 12:50 01:40 Temp 100.1 Pulse 109 Resp 18 B/P (MAP) 108/69 Pulse Ox 90 FiO2 40 Capillary Refill : Greater Than 3 Seconds General Appearance: No Apparent Distress (long as the patient is not physically stimulated.) Respiratory: Lungs Clear, Normal Breath Sounds, No Accessory Muscle Use, No Respiratory Distress Cardiovascular: Regular Rate, Rhythm, No Edema, No Gallop, No JVD, No Murmur, Normal Peripheral Pulses Gastrointestinal: Normal Bowel Sounds, No Organomegaly, Soft, Other (palpation of the abdomen did not lead to any patient response it is verbal stimulation with gentle pushing of the shoulder that leads to more agitated behavior response) Results/Procedures Lab Laboratory Tests 06/18/16 04:10 Assessment/Plan Assessment and Plan Assess & Plan/Chief Complaint 1. Altered mental status with delirium requiring ventilation for airway protection defer to Dr. Deal. 2. Hypokalemia being replaced. 3. No evidence for infection at this time. JEYSON ZHENG MD Jun 18, 2016 10:37
[2016-06-18] MEDS: DEXMEDETOMIDINE INJECTION 400 MCG in NS (IVPB) 96 ML IV SCH ×4 (15:07→22:31)
[2016-06-18] MEDS ORDERED: DEXMEDETOMIDINE PRE-MIX 100 ML IV ONE (15:31)
[2016-06-19] VITALS (27 sets, daily range): BP systolic 125–221; BP diastolic 60–114
[2016-06-19] MEDS: DEXMEDETOMIDINE INJECTION 400 MCG in NS (IVPB) 96 ML IV SCH ×4 (00:48→07:52)
[2016-06-19] MEDS: HALOPERIDOL 5 MG/ML (HALDOL) AMP IV PRN ×2 (01:40→19:31)
[2016-06-19] MEDS: morphine INJ 4 MG/ML 1 ML (VIAL/SYRINGE) IVP PRN ×3 (01:44→07:22)
[2016-06-19] MEDS: fentaNYL PCA 300 MCG/30 ML VIAL IV PRN ×2 (02:25→08:27)
[2016-06-19 04:18] LABS: ABG BASE EXCESS -3.9 MMOL/L (-2.5-2.5); ABG HCO3 20 MMOL/L (23-27); ABG OXYGEN SATURATION 95 % (94-100); ABG PCO2 30 MMHG (35-45); ABG PH 7.44 (7.37-7.43); ABG PO2 68 MMHG (79-93); ABG TCO2 20.5 MMOL/L (21.0-31.0); PATIENT TEMP 98.4
[2016-06-19 04:20] LABS: BASOPHILS % (AUTO) 0 % (0-10); EOSINOPHILS # (AUTO) 0.3 10^3/uL (0.0-0.3); EOSINOPHILS % (AUTO) 3 % (0-10); LYMPHOCYTES # (AUTO) 2.4 X 10^3 (1.0-4.0); LYMPHOCYTES % (AUTO) 22 % (12-44); MEAN CORPUSCULAR HEMOGLOBIN 29 PG (25-34); MEAN CORPUSCULAR HGB CONC 34 G/DL (32-36); MEAN CORPUSCULAR VOLUME 84 FL (80-99); MEAN PLATELET VOLUME 10.3 FL (7.4-10.4); MONOCYTES # (AUTO) 1.2 X 10^3 (0.0-1.0); MONOCYTES % (AUTO) 11 % (0-12); NEUTROPHILS % (AUTO) 64 % (42-75); PLATELET COUNT 245 10^3/uL (130-400); RED BLOOD COUNT 4.78 10^6/uL (4.35-5.85); RED CELL DISTRIBUTION WIDTH 13.6 % (10.0-14.5); WHITE BLOOD COUNT 10.9 10^3/uL (4.3-11.0)
[2016-06-19] MEDS: inSUlin ASPART (NovoLOG) 1 UNIT/0.01 ML (CHARGE PER UNIT) SC SCH ×5 (04:26→21:15)
[2016-06-19 04:40] LABS: ANION GAP 13 MMOL/L (5-14); BLOOD UREA NITROGEN 9 MG/DL (7-18); BUN/CREATININE RATIO 12; CALCIUM 8.7 MG/DL (8.5-10.1); CARBON DIOXIDE 18 MMOL/L (21-32); CHLORIDE 109 MMOL/L (98-107); CREATININE SERUM 0.78 MG/DL (0.60-1.30); GFR ESTIMATED > 60; GLUCOSE 188 MG/DL (70-105); MAGNESIUM 1.5 MG/DL (1.8-2.4); PHOSPHORUS 3.1 MG/DL (2.3-4.7); POTASSIUM 3.7 MMOL/L (3.6-5.0); SODIUM 140 MMOL/L (135-145)
[2016-06-19] MEDS: NS IV 1000 ML 1,000 ML IV SCH ×2 (05:36→16:13)
[2016-06-19] MEDS: KCL 20 MEQ TAB (K-DUR) PO SCH (06:00)
[2016-06-19] MEDS: POTASSIUM CL 10MEQ/50ML IVPB 50 ML IV SCH (06:00)
[2016-06-19] MEDS: MAGNESIUM 1 GM/100 ML IVPB 100 ML IV SCH ×3 (06:00→07:52)
[2016-06-19] MEDS: HALOPERIDOL 5 MG/ML (HALDOL) AMP IV SCH ×3 (06:04→22:06)
--- NOTE | 2016-06-19 06:29 | Pulmonary Progress Note ---
Subjective Subjective/Events-last exam Pt is following little commands. Exam Exam Vital Signs Date Time Temp Pulse Resp B/P (MAP) Pulse Ox O2 Delivery O2 Flow Rate FiO2 06/19/16 05:00 88 17 160/80 98 Mechanical Ventilator 21.00 06/19/16 04:10 99 21 06/19/16 04:00 77 20 99 21 06/19/16 04:00 98.4 77 19 133/63 99 Mechanical Ventilator 21.00 06/19/16 04:00 97 21 06/19/16 03:50 77 30 99 06/19/16 03:00 80 20 125/60 97 Mechanical Ventilator 21.00 06/19/16 02:25 15 06/19/16 02:00 79 19 136/64 100 Mechanical Ventilator 21.00 06/19/16 01:48 79 20 100 21 06/19/16 01:00 79 20 136/65 99 Mechanical Ventilator 21.00 06/19/16 01:00 79 06/19/16 00:37 98.0 06/19/16 00:00 79 20 99 21 06/19/16 00:00 98.0 Mechanical Ventilator 21.00 06/19/16 00:00 79 19 135/64 99 Mechanical Ventilator 21.00 06/19/16 00:00 97 21 06/18/16 23:00 80 19 129/60 99 Mechanical Ventilator 21.00 06/18/16 22:00 82 20 117/56 99 Mechanical Ventilator 21.00 06/18/16 21:55 82 20 98 21 06/18/16 21:46 81 20 117/58 96 Mechanical Ventilator 21.00 06/18/16 21:00 79 19 117/58 97 Mechanical Ventilator 21.00 06/18/16 20:00 81 19 134/57 97 Mechanical Ventilator 21.00 06/18/16 20:00 97 21 06/18/16 19:51 83 20 96 21 06/18/16 19:00 98.4 Mechanical Ventilator 21.00 06/18/16 19:00 81 19 135/59 97 Mechanical Ventilator 21.00 06/18/16 19:00 82 06/18/16 18:26 21 06/18/16 18:22 81 20 96 21 06/18/16 18:03 99.5 06/18/16 18:00 79 20 122/55 96 Mechanical Ventilator 21.00 06/18/16 17:33 99.5 06/18/16 17:00 77 19 149/69 98 Mechanical Ventilator 21.00 06/18/16 16:00 98.8 06/18/16 16:00 97 21 06/18/16 16:00 80 19 145/65 97 Mechanical Ventilator 21.00 06/18/16 15:31 99.5 06/18/16 15:01 20 06/18/16 15:00 78 20 128/61 98 Mechanical Ventilator 21.00 06/18/16 14:25 78 20 97 21 06/18/16 14:00 76 20 123/57 98 Mechanical Ventilator 21.00 06/18/16 13:00 76 20 148/74 98 Mechanical Ventilator 21.00 06/18/16 13:00 77 06/18/16 12:55 99.5 06/18/16 12:52 99.5 75 20 132/60 98 Mechanical Ventilator 21.00 06/18/16 12:00 99.5 06/18/16 12:00 97 21 06/18/16 12:00 75 19 140/65 98 Mechanical Ventilator 21.00 06/18/16 12:00 77 20 97 21 06/18/16 11:00 75 132/60 98 Mechanical Ventilator 21.00 06/18/16 10:25 109/54 06/18/16 10:00 79 123/58 99 Mechanical Ventilator 21.00 06/18/16 09:00 81 116/59 98 Mechanical Ventilator 21.00 06/18/16 08:34 99.5 06/18/16 08:28 20 06/18/16 08:17 73 32 98 21 06/18/16 08:00 98.9 06/18/16 08:00 97 21 06/18/16 08:00 81 116/56 98 Mechanical Ventilator 21.00 06/18/16 07:00 75 20 123/58 98 Mechanical Ventilator 21.00 06/18/16 07:00 75 06/18/16 06:36 75 20 98 21 I & O 06/19/16 07:00 Intake Total 4159.4 ml Output Total 2550 ml Balance 1609.4 ml General Appearance: No Apparent Distress (long as the patient is not physically stimulated.) HEENT: PERRL/EOMI, Pharynx Normal Neck: Full Range of Motion, Normal Inspection, Supple Respiratory: Lungs Clear, Normal Breath Sounds, No Accessory Muscle Use, No Respiratory Distress Cardiovascular: Regular Rate, Rhythm, No Edema, No Gallop, No JVD, No Murmur, Normal Peripheral Pulses Capillary Refill: Greater Than 3 Seconds Extremity: No Pedal Edema Neurologic/Psychiatric: Other (sedated on vent) Skin: Normal Color, Warm/Dry Lymphatic: No Adenopathy Results Lab Laboratory Tests 06/18/16 04:10 06/19/16 04:05 Assessment/Plan Assessment/Plan Combative-- intubated secondary to sedation/combative -- still combative not able to wean sedation -vent AC 20/550/5/40% -D/C Diprivan gtt -- currently [id number] -- - Haldol at 2mg IV Q6 RTC, fentanyl gtt at 50mcg/hr, and precedex gtt, metabolic encephalopathy r/o meningitis -MRI brain -lumbar puncture appears negative -Vanco, Rocephin, acyclovir electrolyte replacement Clinical Quality Measures DVT/VTE Risk/Contraindication: Risk Factor Score Per Nursin RFS Level Per Nursing on Admit: 4+=Very High MARCI LOPEZ DO Jun 19, 2016 06:29
[2016-06-19] MEDS: RT-ADVAIR HFA 115/21 MCG PER PUFF IH SCH ×2 (06:58→20:00)
[2016-06-19] MEDS: RT-ALBUTEROL/IPRATROPIUM 3 ML (DUONEB) VIAL INH SCH ×3 (06:59→20:33)
[2016-06-19 07:50] LABS: CSF LDH P <25 IU/L (0-30)
[2016-06-19] MEDS ORDERED: cefTRIAXone INJECTION 1,000 MG in NS (IVPB) 50 ML IV SCH (09:00)
--- NOTE | 2016-06-19 09:10 | Progress Note-Hospitalist ---
Progress Note HPI/CC on Admission CC: Confusion HPI: This is a 60-year-old white male that presented to the emergency room by ambulance with altered mental status. Upon assessment of medical record I do find a history and physical dated 10/16/14 by [facility] when he was admitted for the same type complaints. Apparently he had an issue with acute renal failure likely medication related along with hypotension and resolved without residual but I'm having difficulty finding any information whatsoever about the patient since [facility] ambulance service did not transport the patient last night nor is there any family or any contact information of the patient came with. He is very confused and unable to answer any questions reliably. Progress Notes/Assess & Plan Date Seen 06/19/16 Admission Dx/Process Assessment: Altered mental status and hypotension with history of similar event back in 2014 related to acute renal failure and overmedication DM HTN Diagonsis/Assessment & Plan Patient very alert and pulling at lines so will attempt to extubate to evaluate neurological status to see if delirium has cleared Precedex supply is dwindling in the hospital so it is of utmost importance to either extubate and see if he is able to become coherent enough and delirium resolved enough to be able to be discontinued off that medication or find another's type of sedation that will work better for him I saw the patient with Dr. Deal and he was alert and trying to follow commands Will proactively placed in leather restraints in case he became so out-of- control after extubation and unable to follow commands that he would not harm himself or others just like before intubation last week that required a code 44 Increased secretions requiring suctioning and addition of Rocephin and vancomycin Intubated,agitated No edema Assessment: Altered mental status and hypotension with history of similar event back in 2014 related to acute renal failure and overmedication now worsened requiring ICU admit with possible intubation even though ARF resolved and labs are stable. MRI negative and LP negative now extubation to evaluate delirium status DM HTN Leukocytosis resolved Respiratory secretions Plan: Intubation due to severe aggression and OOC behavior so will attempt extubation Supportive care Monitor closely ANGÉLICA DAVIS DO Jun 19, 2016 09:10
--- NOTE | 2016-06-19 09:15 | Diagnostic Imaging Report ---
EXAMINATION: Portable upright radiograph of the chest. INDICATION: Intubation. FINDINGS: The ET tube appears to terminate at the clavicle level. The NG tube projects over the distal stomach. The lung bases demonstrate infiltrates or atelectasis, similar to 06/18/2016. There is question of a small left pleural effusion developed from the previous study. No right pleural effusion of significance. No pneumothorax. IMPRESSION: Bibasilar infiltrates or atelectasis. Small left effusion. Dictated by: Dictated on workstation # [id number]
[2016-06-19] MEDS ORDERED: PHARMACY TO DOSE IV SCH (09:45)
[2016-06-19] MEDS ORDERED: VANCOMYCIN 1 GM/NS 250 ML IVPB IV SCH ×2 (09:50)
[2016-06-19] MEDS ORDERED: PIPERACILLIN/TAZOBACTAM 4.5 GM/NS100 ML IVPB IV NR ×2 (10:00)
[2016-06-19] MEDS: THIAMINE 100 MG/ML 2 ML (VITAMIN B-1) VIAL IV SCH (10:39)
[2016-06-19] MEDS: CHLORHEXIDINE 0.12% SOLN 15 ML (PERIDEX) UDC PO SCH ×2 (10:40→21:00)
[2016-06-19] MEDS: PANTOPRAZOLE 40 MG/10 ML (PROTONIX) VIAL IV SCH ×2 (10:48→21:00)
[2016-06-19] MEDS: GABAPENTIN 600 MG (NEURONTIN) TAB PO SCH ×3 (10:55→21:00)
[2016-06-19] MEDS ORDERED: FUROSEMIDE 40 MG/4 ML INJ (LASIX) ONE (14:23)
[2016-06-19 14:43] LABS: ABG BASE EXCESS -4.3 MMOL/L (-2.5-2.5); ABG HCO3 21 MMOL/L (23-27); ABG OXYGEN SATURATION 90 % (94-100); ABG PCO2 43 MMHG (35-45); ABG PO2 68 MMHG (79-93); ABG TCO2 21.9 MMOL/L (21.0-31.0)
[2016-06-19] MEDS ORDERED: FUROSEMIDE 40 MG/4 ML INJ (LASIX) IVP ONE (14:45)
[2016-06-19 14:51] LABS: ABG PH 7.31 (7.37-7.43); ALLENS TEST YES-POS
[2016-06-19 14:52] LABS: PATIENT TEMP 101.2
[2016-06-19] MEDS ORDERED: ACETAMINOPHEN 650 MG SUPP (TYLENOL) PR PRN (15:00)
--- NOTE | 2016-06-19 15:11 | Diagnostic Imaging Report ---
EXAMINATION: Portable upright radiograph of the chest. INDICATION: Shortness of breath. FINDINGS: There is interval extubation and removal of the NG tube seen on the prior exam performed 10 hours earlier. Low lung volumes are seen with improving bibasilar atelectasis. The heart size is normal. No effusion or pneumothorax. The mediastinum and alfonso appear unremarkable. IMPRESSION: Improving bibasilar atelectasis with persistent low lung volumes. Dictated by: Dictated on workstation # [id number]
[2016-06-19] MEDS: PIPERACILLIN SODIUM/TAZOBACTAM 4.5 GM in NS (IVPB) 100 ML IV SCH (16:35)
[2016-06-19 17:53] LABS: BILIRUBIN,URINE NEGATIVE (NEGATIVE); KETONES,URINE 4+ (NEGATIVE); LEUKOCYTE ESTERASE ,URINE 1+ (NEGATIVE); NITRITE,URINE NEGATIVE (NEGATIVE); PH,URINE 5 (5-9); PROTEIN,URINE 2+ (NEGATIVE); UROBILINOGEN,URINE NORMAL (NORMAL)
[2016-06-19] MEDS ORDERED: hydrALAZINE (APESOLINE) 20 MG/ML VIAL ONE (18:32)
[2016-06-19] MEDS: hydrALAZINE (APESOLINE) 20 MG/ML VIAL IV PRN (18:39)
[2016-06-19] MEDS: VANCOMYCIN 1 GM/NS 250 ML IVPB IV SCH ×2 (22:00)
[2016-06-19] MEDS ORDERED: HALOPERIDOL 5 MG/ML (HALDOL) AMP IM/IV PRN (22:30)
[2016-06-19] MEDS ORDERED: HALOPERIDOL DECANOATE 50 MG/ML IM ONE (22:30)
[2016-06-20] VITALS (23 sets, daily range): BP systolic 130–185; BP diastolic 57–137
[2016-06-20] MEDS: inSUlin ASPART (NovoLOG) 1 UNIT/0.01 ML (CHARGE PER UNIT) SC SCH ×6 (03:21→20:09)
[2016-06-20 04:55] LABS: BASOPHILS # (AUTO) 0.1 10^3/uL (0.0-0.1); BASOPHILS % (AUTO) 0 % (0-10); EOSINOPHILS % (AUTO) 0 % (0-10); LYMPHOCYTES % (AUTO) 10 % (12-44); MEAN CORPUSCULAR HEMOGLOBIN 29 PG (25-34); MEAN CORPUSCULAR HGB CONC 34 G/DL (32-36); MEAN CORPUSCULAR VOLUME 84 FL (80-99); MEAN PLATELET VOLUME 10.4 FL (7.4-10.4); MONOCYTES # (AUTO) 1.8 X 10^3 (0.0-1.0); MONOCYTES % (AUTO) 9 % (0-12); NEUTROPHILS # (AUTO) 14.9 X 10^3 (1.8-7.8); NEUTROPHILS % (AUTO) 80 % (42-75); PLATELET COUNT 349 10^3/uL (130-400); RED BLOOD COUNT 5.15 10^6/uL (4.35-5.85); WHITE BLOOD COUNT 18.7 10^3/uL (4.3-11.0)
[2016-06-20 04:56] LABS: ABG HCO3 18 MMOL/L (23-27); ABG OXYGEN SATURATION 94 % (94-100); ABG PCO2 30 MMHG (35-45); ABG PH 7.39 (7.37-7.43); ABG PO2 73 MMHG (79-93)
[2016-06-20 04:57] LABS: ALLENS TEST YES-POS; PATIENT TEMP 98.4
[2016-06-20 05:10] LABS: ANION GAP 21 MMOL/L (5-14); BLOOD UREA NITROGEN 15 MG/DL (7-18); BUN/CREATININE RATIO 17; CALCIUM 9.7 MG/DL (8.5-10.1); CARBON DIOXIDE 16 MMOL/L (21-32); CHLORIDE 107 MMOL/L (98-107); CREATININE SERUM 0.89 MG/DL (0.60-1.30); GFR ESTIMATED > 60; GLUCOSE 172 MG/DL (70-105); MAGNESIUM 1.8 MG/DL (1.8-2.4); PHOSPHORUS 3.3 MG/DL (2.3-4.7); POTASSIUM 3.3 MMOL/L (3.6-5.0); SODIUM 144 MMOL/L (135-145)
[2016-06-20 05:23] LABS: NEUTROPHILS % (MANUAL) 75 %
[2016-06-20 05:24] LABS: BAND NEUTROPHILS 5 %; LYMPHOCYTES % (MANUAL) 17 %; METAMYELOCYTES % 1 %
[2016-06-20] MEDS: MAGNESIUM 1 GM/100 ML IVPB 100 ML IV SCH (05:38)
[2016-06-20] MEDS: VANCOMYCIN 1 GM/NS 250 ML IVPB IV SCH ×6 (05:38→22:41)
[2016-06-20] MEDS: POTASSIUM CL 10MEQ/50ML IVPB 50 ML IV SCH (05:38)
[2016-06-20] MEDS: KCL 20 MEQ TAB (K-DUR) PO SCH (05:39)
[2016-06-20] MEDS: HALOPERIDOL 5 MG/ML (HALDOL) AMP IM/IV SCH ×3 (05:45→22:38)
--- NOTE | 2016-06-20 06:24 | Pulmonary Progress Note ---
Subjective Subjective/Events-last exam Pt is more alert and following simple commands. Exam Exam Vital Signs Date Time Temp Pulse Resp B/P (MAP) Pulse Ox O2 Delivery O2 Flow Rate FiO2 06/20/16 04:03 98.4 06/20/16 04:00 93 4.00 06/20/16 02:40 96 6.00 06/20/16 01:00 118 06/20/16 00:00 99.0 Nasal Cannula 4.00 06/20/16 00:00 93 4.00 06/19/16 23:00 121 31 195/111 96 Nasal Cannula 4.00 06/19/16 22:00 123 30 157/92 97 Nasal Cannula 4.00 06/19/16 21:00 125 29 185/68 92 Nasal Cannula 4.00 06/19/16 20:00 92 4.00 06/19/16 20:00 130 25 173/93 Nasal Cannula 4.00 06/19/16 19:45 128 06/19/16 19:30 98.9 Nasal Cannula 4.00 06/19/16 19:00 131 23 205/102 NIV Bilevel 06/19/16 18:12 97.8 06/19/16 18:00 115 13 221/107 99 NIV Bilevel 06/19/16 17:03 99.6 122 25 194/114 99 NIV Bilevel 06/19/16 16:00 92 4.00 06/19/16 16:00 122 30 186/101 96 Nasal Cannula 4.00 06/19/16 15:49 126 39 98 45.00 06/19/16 15:48 100.1 06/19/16 15:45 NIV Bilevel 40.00 06/19/16 15:00 129 15 178/98 92 Nasal Cannula 4.00 06/19/16 14:54 100.5 06/19/16 14:32 101.2 06/19/16 14:25 89 6.00 06/19/16 14:00 128 29 201/105 90 Nasal Cannula 4.00 06/19/16 13:03 121 18 194/101 93 Nasal Cannula 4.00 06/19/16 13:00 120 06/19/16 13:00 100.4 06/19/16 12:00 116 24 193/93 93 Nasal Cannula 4.00 06/19/16 12:00 96 4.00 06/19/16 10:53 96 4.00 06/19/16 10:00 98 12 172/91 93 Nasal Cannula 4.00 06/19/16 09:30 Nasal Cannula 4.00 06/19/16 09:29 96 4.00 06/19/16 09:20 Nasal Cannula 6.00 06/19/16 09:00 87 20 177/88 90 Mechanical Ventilator 21.00 06/19/16 08:32 96.6 06/19/16 08:27 20 06/19/16 08:00 97 21 06/19/16 08:00 80 19 135/91 94 Mechanical Ventilator 21.00 06/19/16 07:02 74 20 93 21 06/19/16 07:00 74 06/19/16 07:00 74 19 163/81 93 Mechanical Ventilator 21.00 06/19/16 06:59 74 20 93 21 I & O 06/20/16 07:00 Intake Total 1550 ml Output Total 6525 ml Balance -4975 ml General Appearance: No Apparent Distress (long as the patient is not physically stimulated.) HEENT: PERRL/EOMI, Pharynx Normal Neck: Full Range of Motion, Normal Inspection, Supple Respiratory: Lungs Clear, Normal Breath Sounds, No Accessory Muscle Use, No Respiratory Distress Cardiovascular: Regular Rate, Rhythm, No Edema, No Gallop, No JVD, No Murmur, Normal Peripheral Pulses Capillary Refill: Greater Than 3 Seconds Extremity: No Pedal Edema Neurologic/Psychiatric: Other (sedated on vent) Skin: Normal Color, Warm/Dry Lymphatic: No Adenopathy Results Lab Laboratory Tests 06/19/16 04:05 06/20/16 04:45 Assessment/Plan Assessment/Plan Combative-- intubated secondary to sedation/combative -- still combative not able to wean sedation -Pt is now extubated and doing well respiratory mercedes -Pt pulled PICC line out and currently has no IV access -Will have PICC line nurse place another midline metabolic encephalopathy - improved -lumbar puncture appears negative -Vancerma burroughs electrolyte replacement Clinical Quality Measures DVT/VTE Risk/Contraindication: Risk Factor Score Per Nursin RFS Level Per Nursing on Admit: 4+=Very High MARCI LOPEZ DO Jun 20, 2016 06:24
[2016-06-20] MEDS: NS IV 1000 ML 1,000 ML IV SCH ×2 (07:15→20:09)
[2016-06-20] MEDS: PIPERACILLIN SODIUM/TAZOBACTAM 4.5 GM in NS (IVPB) 100 ML IV SCH ×5 (08:00→23:59)
[2016-06-20] MEDS: CHLORHEXIDINE 0.12% SOLN 15 ML (PERIDEX) UDC PO SCH ×2 (08:37→20:56)
[2016-06-20] MEDS: GABAPENTIN 600 MG (NEURONTIN) TAB PO SCH ×3 (09:00→20:56)
[2016-06-20] MEDS: PANTOPRAZOLE 40 MG/10 ML (PROTONIX) VIAL IV SCH ×2 (09:00→20:56)
--- NOTE | 2016-06-20 09:00 | Progress Note-Hospitalist ---
Progress Note HPI/CC on Admission CC: Confusion HPI: This is a 60-year-old white male that presented to the emergency room by ambulance with altered mental status. Upon assessment of medical record I do find a history and physical dated 10/16/14 by [facility] when he was admitted for the same type complaints. Apparently he had an issue with acute renal failure likely medication related along with hypotension and resolved without residual but I'm having difficulty finding any information whatsoever about the patient since [facility] ambulance service did not transport the patient last night nor is there any family or any contact information of the patient came with. He is very confused and unable to answer any questions reliably. Progress Notes/Assess & Plan Date Seen 06/20/16 Admission Dx/Process Assessment: Altered mental status and hypotension with history of similar event back in 2014 related to acute renal failure and overmedication DM HTN Diagonsis/Assessment & Plan Pt following simple commands Pulled out PICC line Appears to be getting septic with pneumonia and patient placed on empiric abx Pleasant, O x ~ 2 RRR, mild tachypnea, coarse and diminished BS No edema Assessment: Altered mental status and hypotension with history of similar event back in 2014 related to acute renal failure and overmedication now worsened requiring ICU admit with possible intubation even though ARF resolved and labs are stable. MRI negative and LP negative now extubated and improved delirium status but now appears to be early sepsis due to pneumonia DM HTN Leukocytosis Plan: Monitor for need of reintubation Supportive care Monitor closely landmark? ANGÉLICA DAVIS DO Jun 20, 2016 09:00
[2016-06-20] MEDS: RT-ALBUTEROL/IPRATROPIUM 3 ML (DUONEB) VIAL INH SCH ×3 (09:08→20:11)
[2016-06-20] MEDS: RT-ADVAIR HFA 115/21 MCG PER PUFF IH SCH ×2 (09:11→20:15)
--- NOTE | 2016-06-20 09:12 | Diagnostic Imaging Report ---
INDICATION: Acute renal failure. EXAMINATION: Chest on 06/20/2016. COMPARISON: 06/19/2016. FINDINGS: The heart is stable. The pulmonary vasculature is congested and there are findings of edema throughout both lungs. No effusions are seen. No pneumothorax. Post operative change in the right shoulder is stable from the previous exam. IMPRESSION: The pulmonary edema has worsened since the previous examination. Dictated by: Dictated on workstation # [id number]
[2016-06-20] MEDS ORDERED: TROUGH ORDER-PHARMACY XX NR (13:00)
--- NOTE | 2016-06-20 13:11 | Diagnostic Imaging Report ---
INDICATION: PICC line placement. Comparison: Earlier same day FINDINGS: Single frontal radiographic view of chest was obtained and demonstrates interval placement of right upper extremity PICC line, tip of which extends superiorly beyond the [id number] likely within the right internal jugular vein. Otherwise, lungs are stable and continue to show pulmonary vascular congestion and interstitial edema. There is no large effusion or pneumothorax. Bony structures show no acute interval change. IMPRESSION: 1. Right upper extremity PICC line extending beyond the [id number] likely within the right internal jugular vein. 2. Persistent pulmonary vascular congestion and probable interstitial pulmonary edema. Dictated by: Dictated on workstation # [id number]
--- NOTE | 2016-06-20 13:24 | Diagnostic Imaging Report ---
EXAMINATION: Portable upright radiograph of the chest. INDICATION: PICC line placement. Post-adjustment. Findings: There is a right PICC line with the tip pointed cephalad in to the right IJ level. Left upper lobe infiltrates are seen. The heart size is mildly enlarged. No pneumothorax. No effusion. IMPRESSION: The right PICC line is still directed cephalad likely within the right IJ vein. Dictated by: Dictated on workstation # [id number]
--- NOTE | 2016-06-20 13:26 | Diagnostic Imaging Report ---
EXAMINATION: Portable upright radiograph of the chest. INDICATION: PICC line reposition. FINDINGS: There is a right PICC line with the tip at SVC level no. There is a left perihilar infiltrate similar to prior exams. Background vascular congestion is better than prior studies. The heart size is slightly enlarged. No effusion or pneumothorax. IMPRESSION: Improving pulmonary vascular congestion. Remaining left perihilar infiltrates could be from a interstitial edema or infiltrates. Dictated by: Dictated on workstation # [id number]
--- NOTE | 2016-06-20 14:23 | ST Dysphagia Evaluation ---
Speech Evaluation-General Medical Diagnosis AMS, ARF, hypotension Onset Date: Jun 12, 2016 Therapy Diagnosis Therapy Diagnosis: Mild Oropharyngeal Dysphagia Precautions Precautions: Aspiration Precautions/Isolations: Fall Prevention, Standard Precautions Referral Referring Physician: Dr. Stefan Deal Reason for Referral: Evaluation/Treatment Clinical Bedside Swallowing Evaluation Medical History Pertinent Medical History: Arthritis, DM, HTN Reviewed History: Yes Social History Current Living Status: he notes he lives with somone but unable to ID who Speech PLF/Current-Dysphagia Prior Level of Function The patient was unable to provide prior level of function to the clinician due to confusion and altered mental status. The patient intermittently followed one- step verbal commands while presented with direct modeling. Subjective The patient was recently admitted to [facility] with a diagnosis of metabolic encephalopathy. The patient was intubated on 06/15/16 and extubated on 06/20/16. The patient was seated upright in bed upon entrance. The patient's eyes were open, however, he appeared fatigued. The patient was agreeable to completion of the dysphagia evaluation. CXR: 06/20/2016:Improving pulmonary vascular congestion. Remaining left perhilar infiltrates could be from a interstitial edema or infiltrates. Cognitive Status Patient Orientation: Person, Confused The patient was able to provide his name, however, could not provide additional orientation information. Oral Motor Skills Dentition: Natural (Poor condition.) Ability to Follow Directions: Fair The patient is currently NPO pending the results of a swallowing evaluation. Oral Expression Ability: Moderate Impairment Voice Voice Phonatory-Based Quality: Glottal [place] Voice Pitch: Moderately Low Voice Loudness: Mildly Soft/Quiet Face Facial Symmetry: Symmetrical Oral-Facial Assessment Oral-Facial Dentition: Normal Labial Seal Description: Normal Lingual Protrusion: Normal Lingual ROM: Normal Lingual Strength: Normal Pharynx Velopharyngeal Move.: Normal Volitional Dry Swallow: Yes Dysphagia Evaluation Consistencies Presented: Thin Liquid, Oblong Thick Liquid, Honey Thick Liquid, Pureed - The patient demonstrated intermittent oral holding with honey-thick liquid consistency, however, consistently displayed a swallow response. Pharyngeal Phase: Reduced Laryngeal Elevation Funct. Velo/Pharyngeal Symptom: Cough After Swallow, Wet Voice - Thin Liquid/Oblong-Thick Liquid (via teaspoon): The patient demonstrated a delayed cough following trials of thin liquid and nectar-thick liquid via teaspoon. Additionally, the patient demonstrated a wet vocal quality and wet respirations following trials of thin liquid. - Honey-Thick Liquid (via teaspoon, cup sip, straw), Puree: No signs/symptoms of aspiration were demonstrated with multiple boluses of honey-thick liquids or puree consistencies. The patient's vocal quality remained clear throughout trials of these consistencies. Dietary Recommendations: Pureed Liquid Recommendations: Thin Swallowing Precautions: Decreased Bolus 1/2 Tsp, Oral Supervision Staff, Oral Supervision Caregiver, Small Bites and Sips, Sitting 90 Degrees 30 Post Intake - The clinician visited with the patient's RN regarding the above swallowing results. The patient demonstrated intermittent fatigue and fluctuating alertness levels throughout the limited evaluation time. Due to this, the RN was encouraged to monitor the patient closely for signs/symptoms of aspiration, as well as, increased fatigue. If patient's reduced alertness returns, the patient should return to a NPO status pending a return of appropriate alertness. - Crush or place medication whole in puree for administration. Dysphagia Evaluation Summary Mild Oropharyngeal Dysphagia Barriers to Learning Alertness Level, Cognition Speech Short Term Goals Short Term Goals Short Term Goals 1. The patient will demonstrate swallowing strategies with 80% accuracy and mild to moderate clinician verbal cueing. Time Frame-STG: One Week Speech Wrecking Crane Engine Operator Goals Wrecking Crane Engine Operator Goals 1. The patient will tolerate the least restrictive diet consistency without signs/symptoms of aspiration or laryngeal penetration. Time Frame: Two Weeks Speech-Plan Treatment Plan Speech Therapy Treatment Plan: Continue Plan of Care Continue skilled speech pathology to re-assess patient's continued appropriateness and safety with an oral diet. Treatment Duration: Jul 04, 2016 # of days/week One to Three Visits Per Week: One to Three Minutes/Day (M-F): 15 Rehab Potential: Guarded Safety Risks/Education Teaching Recipient: Patient Teaching Methods: Discussion Response to Teaching: Unable to Comprehend, Reinforcement Needed Education Topics Provided: Results, Recommendations, Swallowing Strategies, Signs/symptoms of aspiration Time Speech Therapy Time In: 10:00 Speech Therapy Time Out: 10:15 Total Billed Time: 15 Billed Treatment Time 1, CHRISTIANO BRAND Jun 20, 2016 14:23
[2016-06-20] MEDS: hydrALAZINE (APESOLINE) 20 MG/ML VIAL IV PRN (15:14)
[2016-06-20] MEDS: THIAMINE 100 MG/ML 2 ML (VITAMIN B-1) VIAL IV SCH (15:15)
[2016-06-21] VITALS (23 sets, daily range): BP systolic 126–193; BP diastolic 70–100
[2016-06-21] MEDS: inSUlin ASPART (NovoLOG) 1 UNIT/0.01 ML (CHARGE PER UNIT) SC SCH ×2 (00:01→05:11)
[2016-06-21] MEDS: NS IV 1000 ML 1,000 ML IV SCH (03:15)
[2016-06-21 04:17] LABS: BASOPHILS # (AUTO) 0.1 10^3/uL (0.0-0.1); BASOPHILS % (AUTO) 0 % (0-10); EOSINOPHILS # (AUTO) 0.2 10^3/uL (0.0-0.3); EOSINOPHILS % (AUTO) 1 % (0-10); LYMPHOCYTES # (AUTO) 2.4 X 10^3 (1.0-4.0); LYMPHOCYTES % (AUTO) 16 % (12-44); MEAN CORPUSCULAR HEMOGLOBIN 29 PG (25-34); MEAN CORPUSCULAR HGB CONC 34 G/DL (32-36); MEAN CORPUSCULAR VOLUME 85 FL (80-99); MEAN PLATELET VOLUME 10.3 FL (7.4-10.4); MONOCYTES # (AUTO) 1.3 X 10^3 (0.0-1.0); MONOCYTES % (AUTO) 9 % (0-12); NEUTROPHILS # (AUTO) 10.6 X 10^3 (1.8-7.8); NEUTROPHILS % (AUTO) 73 % (42-75); PLATELET COUNT 332 10^3/uL (130-400); RED BLOOD COUNT 4.83 10^6/uL (4.35-5.85); RED CELL DISTRIBUTION WIDTH 14.5 % (10.0-14.5); WHITE BLOOD COUNT 14.5 10^3/uL (4.3-11.0)
[2016-06-21 04:37] LABS: ANION GAP 15 MMOL/L (5-14); BLOOD UREA NITROGEN 17 MG/DL (7-18); BUN/CREATININE RATIO 20; CALCIUM 9.1 MG/DL (8.5-10.1); CARBON DIOXIDE 21 MMOL/L (21-32); CHLORIDE 110 MMOL/L (98-107); CREATININE SERUM 0.87 MG/DL (0.60-1.30); GFR ESTIMATED > 60; GLUCOSE 160 MG/DL (70-105); PHOSPHORUS 2.8 MG/DL (2.3-4.7); POTASSIUM 3.1 MMOL/L (3.6-5.0); SODIUM 146 MMOL/L (135-145)
[2016-06-21] MEDS: POTASSIUM CL 10MEQ/50ML IVPB 50 ML IV SCH ×5 (05:06→08:20)
[2016-06-21] MEDS: MAGNESIUM 1 GM/100 ML IVPB 100 ML IV SCH (05:06)
[2016-06-21] MEDS: hydrALAZINE (APESOLINE) 20 MG/ML VIAL IV PRN ×2 (05:10→15:21)
[2016-06-21] MEDS: KCL 20 MEQ TAB (K-DUR) PO SCH (05:11)
[2016-06-21] MEDS: HALOPERIDOL 5 MG/ML (HALDOL) AMP IM/IV SCH (05:11)
[2016-06-21] MEDS: VANCOMYCIN 1 GM/NS 250 ML IVPB IV SCH ×4 (05:13→14:00)
--- NOTE | 2016-06-21 06:22 | Pulmonary Progress Note ---
Subjective Subjective/Events-last exam Pt intubated. Exam Exam Vital Signs Date Time Temp Pulse Resp B/P (MAP) Pulse Ox O2 Delivery O2 Flow Rate FiO2 06/21/16 04:00 98.9 Nasal Cannula 4.00 06/21/16 04:00 98 4.00 06/21/16 03:00 106 24 169/98 96 Nasal Cannula 4.00 06/21/16 02:00 100 21 164/84 96 Nasal Cannula 4.00 06/21/16 01:19 105 06/21/16 01:00 108 25 150/98 99 Nasal Cannula 4.00 06/21/16 00:07 98.4 Nasal Cannula 4.00 06/21/16 00:00 109 26 151/98 97 Nasal Cannula 4.00 06/21/16 00:00 96 4.00 06/20/16 23:00 109 27 182/81 97 Nasal Cannula 4.00 06/20/16 22:00 110 16 130/82 96 Nasal Cannula 4.00 06/20/16 21:00 116 32 177/57 97 Nasal Cannula 4.00 06/20/16 20:11 96 4.00 06/20/16 20:00 96 4.00 06/20/16 20:00 114 27 168/78 95 Nasal Cannula 4.00 06/20/16 19:42 98.7 06/20/16 19:00 122 161/102 98 Nasal Cannula 4.00 06/20/16 19:00 126 06/20/16 18:00 117 31 154/85 96 Nasal Cannula 4.00 06/20/16 17:00 117 27 185/91 96 Nasal Cannula 4.00 06/20/16 16:04 98.8 06/20/16 16:00 96 4.00 06/20/16 16:00 122 36 163/71 97 Nasal Cannula 4.00 06/20/16 15:05 97 4.00 06/20/16 15:00 120 40 182/97 98 Nasal Cannula 4.00 06/20/16 14:00 112 18 183/137 97 Nasal Cannula 4.00 06/20/16 13:20 113 169/96 Nasal Cannula 4.00 06/20/16 13:00 112 06/20/16 12:00 113 29 94 Nasal Cannula 4.00 06/20/16 12:00 99.1 06/20/16 12:00 96 4.00 06/20/16 11:00 112 34 171/95 94 Nasal Cannula 4.00 06/20/16 10:00 112 31 155/90 94 Nasal Cannula 4.00 06/20/16 09:08 98 4.00 06/20/16 09:00 157/84 Nasal Cannula 4.00 06/20/16 08:00 98.8 115 37 151/80 96 Nasal Cannula 4.00 06/20/16 08:00 96 4.00 06/20/16 07:00 111 32 164/87 94 Nasal Cannula 4.00 06/20/16 07:00 113 I & O 06/21/16 07:00 Intake Total 2680 ml Output Total 1850 ml Balance 830 ml General Appearance: No Apparent Distress (long as the patient is not physically stimulated.) HEENT: PERRL/EOMI, Pharynx Normal Neck: Full Range of Motion, Normal Inspection, Supple Respiratory: Lungs Clear, Normal Breath Sounds, No Accessory Muscle Use, No Respiratory Distress Cardiovascular: Regular Rate, Rhythm, No Edema, No Gallop, No JVD, No Murmur, Normal Peripheral Pulses Capillary Refill: Greater Than 3 Seconds Extremity: No Pedal Edema Neurologic/Psychiatric: Other (sedated on vent) Skin: Normal Color, Warm/Dry Lymphatic: No Adenopathy Results Lab Laboratory Tests 06/20/16 04:45 06/21/16 04:00 Assessment/Plan Assessment/Plan Combative-- intubated secondary to sedation/combative -- still combative not able to wean sedation -Pt is now extubated and doing well respiratory mercedes -PICC line reinserted. Pt is more responsive - will transfer to 4th floor. metabolic encephalopathy - improved -lumbar puncture appears negative -erma Hardy -D/C scheduled Haldol and start Risperdal 0.5mg BID electrolyte replacement Clinical Quality Measures DVT/VTE Risk/Contraindication: Risk Factor Score Per Nursin RFS Level Per Nursing on Admit: 4+=Very High MARCI LOPEZ DO Jun 21, 2016 06:22
[2016-06-21] MEDS: RT-ALBUTEROL/IPRATROPIUM 3 ML (DUONEB) VIAL INH SCH ×3 (06:43→19:19)
[2016-06-21] MEDS: RT-ADVAIR HFA 115/21 MCG PER PUFF IH SCH ×2 (06:43→19:19)
--- NOTE | 2016-06-21 08:53 | Diagnostic Imaging Report ---
EXAMINATION: Portable upright radiograph of the chest. INDICATION: Acute renal failure. COMPARISON: 06/20/2016. FINDINGS: The right PICC line is again seen with the tip at the SVC level. The heart size is moderately enlarged. There is no pleural effusion. The previously seen perihilar infiltrate on 06/20/2016 has nearly completely resolved. Minimal remaining bibasilar atelectasis is seen. The mediastinum and alfonso appear unremarkable. IMPRESSION: Interval improvement with minimal remaining bibasilar atelectasis. Dictated by: Dictated on workstation # [id number]
--- NOTE | 2016-06-21 09:34 | Physical Therapy Evaluation ---
PT Evaluation-General Medical Diagnosis Admission Date Jun 12, 2016 at 22:22 Medical Diagnosis: AMS, ARF, hypotension Onset Date: Jun 12, 2016 Therapy Diagnosis Therapy Diagnosis: debility Height/Weight Height (Feet): 5 Height (Inches): 7.00 Weight (Pounds): 243 Weight (Ounces): 6.0 Precautions Precautions/Isolations: Fall Prevention, Standard Precautions Referral Physician: Stefan Deal DO Reason for Referral: Evaluation/Treatment Medical History Pertinent Medical History: Arthritis, DM, HTN Additional Medical History back pain, renal failure Current History Patient was admitted with AMS, ARF, and hypotension. He was being seen by PT on the medical floor but is now in ICU. Reviewed History: Yes Social History Home: Single Level Current Living Status: he notes he lives with somone but unable to ID who Prior/Core FIM Prior Level of Function Functional [place] Measure 0=Not Assessed/NA 4=Minimal Assistance 1=Total Assistance 5=Supervision or Setup 2=Maximal Assistance 6=Modified [place] 3=Moderate Assistance 7=Complete [place] unknown PT Evaluation-Current Subjective Patient in bed pre tx, lethargic, mumbles but is not really understandable Pain Comment: unknown Pt/Family Goals none stated Objective Patient Orientation: Unable to Assess Attachments: Oxygen, Albrecht Catheter, IV ROM/Strength ROM Lower Extremities WNL Strenght Lower Extremities unable to test Integumentary/Posture Bladder Incontinence: Albrecht Cath Neuromuscular (Tone, Coordination, Reflexes) NT Sensory Hearing: Functional Sensation Lower Extremities unable to test Transfers Functional [place] Measure 0=Not Assessed/NA 4=Minimal Assistance 1=Total Assistance 5=Supervision or Setup 2=Maximal Assistance 6=Modified [place] 3=Moderate Assistance 7=Complete [place] Transfers (B, C, W/C) (FIM): 1 Scootin Rollin Supine to/from Sit: 1 Patient transferred to the side of the bed and sat for approx 8 min, he was not able to support himself and would lean heavily to the left side Balance Sitting Static: Poor Sitting Dynamic: Poor Treatment Patient attempted to perform some ankle pumps and LAQ both legs x10 Assessment/Needs Patient is confused, has poor endurance, debility Rehab Potential: Poor PT Senior Foreman Goals Senior Foreman Goals PT Senior Living Goals Time Frame: Jun 28, 2016 Transfers (B,C,W/C) (FIM): 4 Gait (FIM): 1 Distance: 10' Gait Level of Assist: 4 Gait Assistive Device: FWW PT Plan Problem List Problem List: Activity Tolerance, Functional Strength, Safety, Balance, Gait, Transfer, Bed Mobility, ROM Treatment/Plan Treatment Plan: Continue Plan of Care Treatment Plan: Bed Mobility, Functional Activity Imani, Functional Strength, Gait, Safety, Therapeutic Exercise, Transfers Treatment Duration: Jun 28, 2016 # of days/week 5-6 Visits Per Week: 5-6 Minutes/Day (M-F): 15-30 Minutes/Day (Sat/[place]): 15-30 Pt/Family Agrees w/Plan: Yes Safety Risks/Education Patient Education: Transfer Techniques, Correct Positioning, Safety Issues Teaching Recipient: Patient Teaching Methods: Demonstration, Discussion Response to Teaching: Reinforcement Needed Discharge Recommendations Plan Patient will perform bed mobility and transfer training, balance and endurance training, functional strengthening, gait training, and education, to improve functional mobility and independence at home. Therapy D/C Recommendations: Home w/ Family Support, [facility]fp (TCU/NH) Time/GCodes Time In: 915 Time Out: 930 Total Billed Treatment Time: 15 Total Billed Treatment 1 visit EVM 15 min AAKSH GUERRA PT Jun 21, 2016 09:34
[2016-06-21] MEDS: PIPERACILLIN SODIUM/TAZOBACTAM 4.5 GM in NS (IVPB) 100 ML IV SCH ×2 (09:51→16:52)
[2016-06-21] MEDS: GABAPENTIN 600 MG (NEURONTIN) TAB PO SCH ×3 (09:52→20:25)
[2016-06-21] MEDS: THIAMINE 100 MG/ML 2 ML (VITAMIN B-1) VIAL IV SCH (09:52)
[2016-06-21] MEDS: PANTOPRAZOLE 40 MG/10 ML (PROTONIX) VIAL IV SCH ×2 (09:52→21:43)
[2016-06-21] MEDS: lisINopril 10 MG (PRINIVIL) TAB PO SCH (09:52)
[2016-06-21] MEDS: amLODIPine 5 MG (NORVASC) TAB PO SCH (09:52)
[2016-06-21] MEDS: risperiDONE 0.25 MG (RisperDAL) TAB PO SCH ×2 (09:52→20:25)
--- NOTE | 2016-06-21 10:55 | Progress Note-Hospitalist ---
Progress Note HPI/CC on Admission CC: Confusion HPI: This is a 60-year-old white male that presented to the emergency room by ambulance with altered mental status. Upon assessment of medical record I do find a history and physical dated 10/16/14 by [facility] when he was admitted for the same type complaints. Apparently he had an issue with acute renal failure likely medication related along with hypotension and resolved without residual but I'm having difficulty finding any information whatsoever about the patient since [facility] ambulance service did not transport the patient last night nor is there any family or any contact information of the patient came with. He is very confused and unable to answer any questions reliably. Progress Notes/Assess & Plan Date Seen 06/21/16 Admission Dx/Process Assessment: Altered mental status and hypotension with history of similar event back in 2014 related to acute renal failure and overmedication DM HTN Diagonsis/Assessment & Plan Chart Review: No fever Vitals stable except tachycardic at 120 WBC down to 14.5 K+ 3.1 Blood sugars 170s CXR improved atelectasis Remains on Zosyn and Vanc Dr. Deal Review: Pt is improving, but will remain at [facility] to monitor. nutritional services cook: Pt aspirated water this am so will remain in the ICU. Patient Interview: Pt tired during visit and has difficulty speaking. Physical exam stable. Pleasant, O x ~ 2, improved RRR, mild tachypnea, coarse and diminished BS No edema Assessment: Altered mental status and hypotension with history of similar event back in 2014 related to acute renal failure and overmedication requiring ICU admit with intubation even though ARF resolved and labs are stable now extubated. MRI negative and LP negative now extubated and improved delirium status but now on tx for sepsis due to pneumonia and could have aspirated water this am DM HTN Leukocytosis Plan: Monitor for need of reintubation Supportive care Monitor closely [place]? May not recover and will need NH placement Scribed by Maged Mckinney under the direct supervision of Dr. Davis. ANGÉLICA DVAIS DO Jun 21, 2016 10:55
--- NOTE | 2016-06-21 11:07 | Speech Therapy Daily Note ---
Speech Daily Progress Note Subjective The patient was sitting upright in bed secondary to bed positioning. The patient 's alertness level was reduced (in comparison to the prior evaluation) and he continuously mumbled throughout the re-evaluation. The patient's family members are at bedside. To note: The patient demonstrates wet respirations at rest (not present during the prior evaluation). The wet secretions appear to the clinician that the patient is not handling his own secretions well and/or may be experiencing reduced glottal sensation. Additionally, the patient had a bottle of thin liquid next to his bed. Per RN, a family member had provided the patient with the thin liquid earlier on this date. Objective PO Trials (Puree/Pudding, only): The patient was unable to clear his throat on command and was able to perform this task the day prior. Additionally, wet respirations were noted. The patient's SpO2% was at 95% prior to, during, and following the evaluation. One bolus of puree consistency was provided to the patient via teaspoon. The patient demonstrated an immediate, wet, productive cough following bolus holding of the material (approximately 30 seconds), requiring verbal prompts from the clinician to initiate a swallow. The results were discussed with the RN, who stated the patient has had increased difficulty swallowing on this date. Additionally, the patient's alertness is reduced in comparison to the day prior. The clinician made note of these observations during the evaluation and requested the patient be placed NPO with any signs/symptoms of aspiration or change in alertness level. At this time, the clinician is recommending the patient be NPO pending the results of a modified barium swallow (ordered) due to his fluctuating performance. Assessment Assessment Current Status: Regressing Treatment Plan Continue Plan of Care Speech Short Term Goals Short Term Goals Short Term Goals 1. The patient will demonstrate swallowing strategies with 80% accuracy and mild to moderate clinician verbal cueing. Time Frame-STG: One Week Speech [facility] Goals [facility] Goals 1. The patient will tolerate the least restrictive diet consistency without signs/symptoms of aspiration or laryngeal penetration. Time Frame: Two Weeks Speech-Plan Treatment Plan Speech Therapy Treatment Plan: Continue Plan of Care Continue skilled speech pathology to target improved swallowing safety. Treatment Duration: Jul 04, 2016 # of days/week One to Three Visits Per Week: One to Three Minutes/Day (M-F): 15 Rehab Potential: Poor Safety Risks/Education Teaching Recipient: Patient, Family Teaching Methods: Discussion Response to Teaching: Reinforcement Needed Education Topics Provided: Results, Recommendations, Modified Barium Swallow, Signs/Symptoms of Aspiration Time Speech Therapy Time In: 10:30 Speech Therapy Time Out: 10:45 Total Billed Time: 15 Billed Treatment Time 1ELAINE ELIZABETH ST Jun 21, 2016 11:07
[2016-06-21 11:40] LABS: HSV 2 DNA PCR CSF Not Detected (Not Detected)
[2016-06-21] MEDS: inSUlin (REGULAR) HUMAN 1 UNIT/0.01 ML (CHARGE PER UNIT) SC SCH ×2 (11:49→18:17)
[2016-06-21 12:23] LABS: HSV 1 DNA PCR Not Detected (Not Detected)
[2016-06-21] MEDS ORDERED: TROUGH ORDER-PHARMACY XX NR (13:00)
--- NOTE | 2016-06-21 14:26 | Occ Therapy Progress Note ---
Therapy Progress Note OT order received. Spoke with nursing. Okay for OT to attempt to work with pt. States that pt. has not been agitated today, but is unable to follow cues. Went and spoke with pt. Pt. able to make eye contact, and mumbles throughout treatment. OT is able to make out some of his language, but not much. Unable to provide history. Put bedrail down. Attempted to initiate pt. sitting on side of bed with max cues. Pt. begins to move left leg slightly, but then stops , and is unable to follow any other cue. Noted that pt. had food on mouth. Provided warm washcloth. Attempted to engage pt. in cleansing face. Unable to do so. OT wiped face for him. Got onto his level. Attempted to engage him in conversation. Pt. is once again able to make out some small words, but is very hard to understand. Is unable to participate at this time. Will attempt back later. [id number] 1, visit no charge due to pt. unable to participate. GERARD WHITLEY OT Jun 21, 2016 14:26
[2016-06-21] MEDS: VANCOMYCIN 1250 MG/NS 250 ML IVPB IV SCH ×4 (14:46→21:43)
[2016-06-22] VITALS (13 sets, daily range): BP systolic 138–173; BP diastolic 64–105
[2016-06-22] MEDS: PIPERACILLIN SODIUM/TAZOBACTAM 4.5 GM in NS (IVPB) 100 ML IV SCH ×3 (00:17→16:53)
[2016-06-22] MEDS: inSUlin (REGULAR) HUMAN 1 UNIT/0.01 ML (CHARGE PER UNIT) SC SCH ×4 (00:22→19:51)
[2016-06-22 04:39] LABS: BASOPHILS # (AUTO) 0.1 10^3/uL (0.0-0.1); BASOPHILS % (AUTO) 0 % (0-10); EOSINOPHILS # (AUTO) 0.1 10^3/uL (0.0-0.3); EOSINOPHILS % (AUTO) 1 % (0-10); LYMPHOCYTES # (AUTO) 2.1 X 10^3 (1.0-4.0); LYMPHOCYTES % (AUTO) 10 % (12-44); MEAN CORPUSCULAR HEMOGLOBIN 29 PG (25-34); MEAN CORPUSCULAR HGB CONC 33 G/DL (32-36); MEAN CORPUSCULAR VOLUME 87 FL (80-99); MEAN PLATELET VOLUME 10.7 FL (7.4-10.4); MONOCYTES # (AUTO) 1.6 X 10^3 (0.0-1.0); MONOCYTES % (AUTO) 8 % (0-12); NEUTROPHILS # (AUTO) 16.8 X 10^3 (1.8-7.8); NEUTROPHILS % (AUTO) 81 % (42-75); PLATELET COUNT 374 10^3/uL (130-400); RED BLOOD COUNT 4.84 10^6/uL (4.35-5.85); RED CELL DISTRIBUTION WIDTH 14.9 % (10.0-14.5); WHITE BLOOD COUNT 20.7 10^3/uL (4.3-11.0)
[2016-06-22 04:55] LABS: ANION GAP 11 MMOL/L (5-14); BLOOD UREA NITROGEN 19 MG/DL (7-18); BUN/CREATININE RATIO 20; CALCIUM 9.4 MG/DL (8.5-10.1); CARBON DIOXIDE 23 MMOL/L (21-32); CHLORIDE 113 MMOL/L (98-107); CREATININE SERUM 0.96 MG/DL (0.60-1.30); GFR ESTIMATED > 60; GLUCOSE 201 MG/DL (70-105); PHOSPHORUS 2.6 MG/DL (2.3-4.7); POTASSIUM 3.5 MMOL/L (3.6-5.0); SODIUM 147 MMOL/L (135-145)
[2016-06-22 05:13] LABS: BAND NEUTROPHILS 0 %; BASOPHILS % (MANUAL) 0 %; EOSINOPHILS % (MANUAL) 0 %; LYMPHOCYTES % (MANUAL) 14 %; NEUTROPHILS % (MANUAL) 77 %
[2016-06-22] MEDS: VANCOMYCIN 1250 MG/NS 250 ML IVPB IV SCH ×4 (05:24→17:01)
[2016-06-22] MEDS: hydrALAZINE (APESOLINE) 20 MG/ML VIAL IV PRN (06:12)
--- NOTE | 2016-06-22 06:31 | Pulmonary Progress Note ---
Subjective Subjective/Events-last exam Pt is doing better however he aspirated water yesterday. Exam Exam Vital Signs Date Time Temp Pulse Resp B/P (MAP) Pulse Ox O2 Delivery O2 Flow Rate FiO2 06/22/16 06:00 107 27 171/86 96 Nasal Cannula 4.00 06/22/16 04:00 106 28 162/91 96 Nasal Cannula 4.00 06/22/16 04:00 96 4.00 06/22/16 03:00 106 24 159/83 96 Nasal Cannula 4.00 06/22/16 02:00 108 13 162/88 95 Nasal Cannula 4.00 06/22/16 01:00 110 27 159/105 95 Nasal Cannula 4.00 06/22/16 01:00 106 06/22/16 00:01 111 22 164/90 94 Nasal Cannula 4.00 06/22/16 00:00 96 4.00 06/21/16 23:45 97.9 Nasal Cannula 4.00 06/21/16 23:00 118 32 126/80 96 Nasal Cannula 4.00 06/21/16 22:00 112 30 143/72 95 Nasal Cannula 4.00 06/21/16 21:00 116 14 149/84 95 Nasal Cannula 4.00 06/21/16 20:01 97.2 Nasal Cannula 4.00 06/21/16 20:00 120 12 149/74 95 Nasal Cannula 4.00 06/21/16 20:00 96 4.00 06/21/16 19:36 93 4.00 06/21/16 19:19 92 4.00 06/21/16 19:00 118 16 133/70 92 Nasal Cannula 4.00 06/21/16 19:00 98 06/21/16 18:00 120 7 182/93 98 Nasal Cannula 4.00 06/21/16 17:00 123 34 168/87 94 Nasal Cannula 4.00 06/21/16 16:13 95 4.00 06/21/16 16:00 125 26 193/83 96 Nasal Cannula 4.00 06/21/16 15:00 116 19 184/100 93 Nasal Cannula 4.00 06/21/16 14:15 94 06/21/16 14:00 115 33 169/95 95 Nasal Cannula 4.00 06/21/16 13:25 94 4.00 06/21/16 13:00 114 06/21/16 13:00 113 31 161/91 95 Nasal Cannula 4.00 06/21/16 11:49 96.8 114 21 154/90 92 Nasal Cannula 4.00 06/21/16 11:06 95 4.00 06/21/16 11:00 120 25 90 Nasal Cannula 4.00 06/21/16 10:00 120 16 164/84 96 Nasal Cannula 4.00 06/21/16 09:00 120 13 167/91 96 Nasal Cannula 4.00 06/21/16 08:00 96.6 116 25 147/86 95 Nasal Cannula 4.00 06/21/16 08:00 95 4.00 06/21/16 07:00 123 06/21/16 07:00 128 29 158/81 90 Nasal Cannula 4.00 06/21/16 06:46 95 4.50 I & O 06/22/16 07:00 Intake Total 150 ml Output Total 1500 ml Balance -1350 ml General Appearance: Mild Distress HEENT: PERRL/EOMI, Pharynx Normal Neck: Full Range of Motion, Normal Inspection, Supple Respiratory: Lungs Clear, Normal Breath Sounds, No Accessory Muscle Use, No Respiratory Distress Cardiovascular: Regular Rate, Rhythm, No Edema, No Gallop, No JVD, No Murmur, Normal Peripheral Pulses Capillary Refill: Greater Than 3 Seconds Extremity: No Pedal Edema Neurologic/Psychiatric: Alert Skin: Normal Color, Warm/Dry Lymphatic: No Adenopathy Results Lab Laboratory Tests 06/21/16 04:00 06/22/16 04:20 Assessment/Plan Assessment/Plan metabolic encephalopathy - improved -lumbar puncture appears negative -Vancopaolasyn - scheduled Haldol Dysphagia - aspirated on water -Barium swallow Clinical Quality Measures DVT/VTE Risk/Contraindication: Risk Factor Score Per Nursin RFS Level Per Nursing on Admit: 4+=Very High MARCI LOPEZ DO Jun 22, 2016 06:31
[2016-06-22] MEDS: RT-ALBUTEROL/IPRATROPIUM 3 ML (DUONEB) VIAL INH SCH ×4 (06:44→19:05)
[2016-06-22] MEDS: RT-ADVAIR HFA 115/21 MCG PER PUFF IH SCH ×3 (06:45→19:05)
[2016-06-22] MEDS: 1/2 NS IV SOLUTION 1,000 ML IV SCH ×2 (07:03→21:46)
[2016-06-22] MEDS: POTASSIUM CL 10MEQ/50ML IVPB 50 ML IV SCH ×4 (07:04→11:48)
[2016-06-22] MEDS: THIAMINE 100 MG/ML 2 ML (VITAMIN B-1) VIAL IV SCH (08:38)
[2016-06-22] MEDS: GABAPENTIN 600 MG (NEURONTIN) TAB PO SCH ×3 (08:39→21:00)
[2016-06-22] MEDS: HALOPERIDOL 5 MG/ML (HALDOL) AMP IV SCH ×2 (08:39→21:46)
[2016-06-22] MEDS: PANTOPRAZOLE 40 MG/10 ML (PROTONIX) VIAL IV SCH ×2 (08:39→21:47)
[2016-06-22] MEDS: amLODIPine 5 MG (NORVASC) TAB PO SCH (08:39)
[2016-06-22] MEDS: lisINopril 10 MG (PRINIVIL) TAB PO SCH (08:40)
--- NOTE | 2016-06-22 08:40 | Occupational Therapy Eval ---
OT Evaluation-General/PLF Medical Diagnosis Admission Date Jun 12, 2016 at 22:22 Medical Diagnosis: AMS, ARF, hypotension Onset Date: Jun 12, 2016 Therapy Diagnosis Therapy Diagnosis: Weakness, decreased ADL skills Height/Weight Height (Feet): 5 Height (Inches): 7.00 Weight (Pounds): 243 Weight (Ounces): 6.0 Precautions Precautions/Isolations: Fall Prevention, Standard Precautions Safety Interventions: Bed Exit Alarm, Place Restraint Weight Bear Status Weight Bearing Restriction: Weight Bearing/Tolerated Referral Physician: Stefan Deal DO Referral Reason: Activity Tolerance, Self Care, Evaluation/Treatment, Strengthening/ROM Medical History Pertinent Medical History: Arthritis, DM, HTN Additional Medical History Left shoulder surgery, right ankle surgery, penile implant, testicular implant, renal failure Current History Pt. came to ER with AMS. Admitted with diagnosis of metabolic encephalopathy. Intubated at some point due to agitation. Restraints applied as well. Extubated and no more restraints, but lethargic. Reviewed History: Yes Social History Home: Single Level ADL-Prior Level of Function ADL PLOF Comments At this time, with this therapist, pt. is unable to report any history. Does mumble somewhat throughout treatment, but is unintelligible. Pt. is able to make eye contact at times. Is able to follow some simple commands, such as "move your fingers" and "try to hold yourself up." OT Current Status Subjective Pt. is unable to report anything to this therapist. Appearance Pt. is in bed. Has one leg hanging out of bed when OT enters room. Mental Status/Objective Patient Orientation: Confused, Unable to Assess Current Pt. attempts to engage pt. in UE assessment. Pt. is unable to put his hands flat on bed when sitting up, or move large joints (shoulder/elbows.) Is able to wiggle fingers slightly on right hand with cues, but nothing else. ADL-Treatment Functional [place] Measure 0=Not Assessed/NA 4=Minimal Assistance 1=Total Assistance 5=Supervision or Setup 2=Maximal Assistance 6=Modified [place] 3=Moderate Assistance 7=Complete IndependenceIRFPAI Quality Coding Scale 6 Independent with activity with or without an assistive device 5 Patient requires set up or clean up by helper. Patient completes activity by themselves 4 Supervision or touching assist (CGA). [place] provide cues , steadying assist 3 The helper provides less than half the effort to complete the activity 2 The helper provides more than half the effort to complete the activity 1 Dependent. The helper does all the effort to complete an activity 7 Patient refused to complete or attempt activity 9 The patient did not perform the activity before the current illness or injury 88 Not attempted due to Medical conditions or safety concerns Grooming (FIM): 1 (OT attempts to give pt. warm washcloth to wash face. Pt. unable to participate. Pt. is dependent for this grooming task.) Transfers (B, C, W/C) (FIM): 1 Pt. in bed. OT attempts to engage pt., but pt. is unintelligible. Does make eye contact at times. OT educates pt. on importance of sitting up. Requires dependent assist x 2 for supine to sit. Pt. sits EOB approximately 10 minutes. Is able to engage core muscles with max cues at times, and hold self up with retropulsive posture throughout treatment. Otherwise, requires dependent assistance to sit upright on side of bed and not fall over. OT attempts to engage pt. in conversation, and educate him about what is going on. OT asks him if he remembers what has happened since he has came into the hospital. Pt. will shake head slightly "no." Pt. sat on side of bed approximately 10 minutes. Required dependent assist x 2 to lay back down. All needs met. Education OT Patient Education: Correct positioning, Progress toward Goal/Update tx plan , Purpose of tx/functional activities, Reviewed precautions, Rehab process, Transfer techniques Teaching Recipient: Patient Teaching Methods: Demonstration, Discussion Response to Teaching: Unable to Comprehend OT Short Term Goals Short Term Goals Time Frame: Jun 29, 2016 Eating(FIM): 3 Grooming(FIM): 3 Additional Short Term Goals: 1-Demonstrate ADL Tasks, 2-Verbalize Understanding , 3-ImproveStrength/[place]man[place] 1=Demonstrate adherence to instructed precautions during ADL tasks. 2=Patient will verbalize/demonstrate understanding of assistive devices/ modifications for ADL. 3=Patient will improve strength/tolerance for activity to enable patient to perform ADL's. OT Group Home Goals Group Home Goals Time Frame: Jul 06, 2016 Eating (FIM): 4 Grooming(FIM): 4 Upper Body Dressing(FIM): 4 Transfers (B,C,W/C) (FIM): 4 Additional Goals: 1-Demonstrate ADL Tasks, 2-Verbalize Understanding, 3- ImproveStrength/Imani 1=Demonstrate adherence to instructed precautions during ADL tasks. 2=Patient will verbalize/demonstrate understanding of assistive devices/ modifications for ADL. 3=Patient will improve strength/tolerance for activity to enable patient to perform ADL's. OT Education/Plan Problem List/Assessment Assessment: Decreased Activ Tolerance, Decreased Safety Aware, Decreased UE Strength, Dependent Transfers, Impaired Bed Mobility, Impaired Cognition, Impaired Coordination, Impaired Funct Balance, Impaired I ADL's, Impaired Self- Care Skills, Restricted Funct UE ROM, Visual-Perceptual Deficit Discharge Recommendations Plan/Recommendations: Continue POC Therapy D/C Recommendations: 24 hr Supervision, Fpc (TCU/NH) Comment Pt. is totally dependent at this time. Unsure of equipment needs or discharge location at this time. Will continue to work with pt. to increase independence and awareness. Treatment Plan/Plan of Care Treatment,Training & Education: Yes Patient would benefit from OT for education, treatment and training to promote independence in ADL's, mobility, safety and/or upper extremity function for ADL' s. Plan of Care: ADL Retraining, Caregiver Training, Cognitive Retraining, Functional Mobility, UE Funct Exercise/Act Treatment Duration: Jul 06, 2016 # of days/week 5-6 Visits Per Week: 5-6 Agreement: Yes Rehab Potential: Poor Time/GCodes Start Time: 08:10 Stop Time: 08:30 Total Time Billed (hr/min): 20 Billed Treatment Time 1, GERARD Green OT Jun 22, 2016 08:40
--- NOTE | 2016-06-22 08:51 | Diagnostic Imaging Report ---
INDICATION: Pneumonia. Study compared 06/21/2016. FINDINGS: Right PICC is at the SVC. Heart size upper limits. No effusion or pneumothorax. Subtle infiltrate, right perihilar lung, has become more conspicuous. IMPRESSION: There is likely some infiltrate in the medial right lung suspicious for pneumonia. No overt failure pattern. PICC line in good position. Dictated by: Dictated on workstation # [id number]
[2016-06-22] MEDS ORDERED: HALOPERIDOL 5 MG/ML (HALDOL) AMP IM SCH (09:00)
--- NOTE | 2016-06-22 10:54 | Progress Note-Hospitalist ---
Progress Note HPI/CC on Admission CC: Confusion HPI: This is a 60-year-old white male that presented to the emergency room by ambulance with altered mental status. Upon assessment of medical record I do find a history and physical dated 10/16/14 by [facility] when he was admitted for the same type complaints. Apparently he had an issue with acute renal failure likely medication related along with hypotension and resolved without residual but I'm having difficulty finding any information whatsoever about the patient since [facility] ambulance service did not transport the patient last night nor is there any family or any contact information of the patient came with. He is very confused and unable to answer any questions reliably. 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 Pt aspirated yesterday. Barium swallow will be performed today. Pt is a NH candidate. SW [facility]: [facility] Pt has calmed down and is not combative currently. Palliative Care: Does not look like CVA. Pt family does not know why pt is like he is. Patient Interview: Pt states he is okay. Physical exam was stable. Scribed by Ricardo Martinez under the direct supervision of Dr. Shrestha. AFVSS, Minimally conversant RRR, CTAB coarse upper respiratory sounds No edema Assessment: Altered mental status and hypotension with history of similar event back in 2014 related to acute renal failure and overmedication requiring ICU admit with intubation even though ARF resolved and labs are stable now extubated. MRI negative and LP negative now extubated and only slight improved delirium status but now on tx for sepsis due to pneumonia and could have aspirated water yesterday so having barium swallow today per speech therapy DM HTN Leukocytosis Plan: Speech therapy evaluation with barium swallow is appreciated Abx Tx to floor Pt will either need hospice or senior living care facility and likelihood of recovery is very low ANGÉLICA SHRESTHA DO Jun 22, 2016 10:54
--- NOTE | 2016-06-22 11:14 | Speech Therapy Progress Note ---
Therapy Progress Note The speech pathologist attempted completion of the modified barium swallow evaluation on this date. The patient did not follow simple, single step verbal cues or direct modeling for completion of the oral mechanism exam. Additionally , the patient demonstrated increased fatigue and lethargy, often closing eyes and leaning on radiology equipment. With increased alertness, the patient was provided one teaspoon of honey-thick liquid barium. The patient did not elicit a swallow and the barium demonstrated anterior spill. One teaspoon of pudding was provided. The patient orally held the pudding, resulting in suctioning of the pudding from the oral cavity. At this time, the radiologist stated the patient was not appropriate or participating at a level for continued evaluation. The modified barium swallow was terminated. The patient's RN was notified following the attempt. At this time, the speech pathologist cannot made a knowledgeable decision regarding the patient's swallowing function due to reduced alertness and poor participation. The clinician recommends the patient remain NPO until alertness improves. The patient will be re-evaluated at bedside for improved participation and progress. If appropriate, the modified barium swallow will be rescheduled. Thank you. CHRISTIANO HEWITT Jun 22, 2016 11:14
--- NOTE | 2016-06-22 11:31 | Diagnostic Imaging Report ---
EXAMINATION: Modified barium swallow. Indication: Dysphagia Different consistencies of fluid and food was given mixed with barium and swallowing was visualized under fluoroscopy. FLUOROSCOPY TIME: One minute and 18 seconds FINDINGS: The patient has very poor ability to cooperate unfortunately and would not swallow at this time. IMPRESSION: Risk of aspiration cannot be assessed at this time. Please refer to speech therapist's report for additional details . Dictated by: Dictated on workstation # [id number]
--- NOTE | 2016-06-22 11:55 | Physical Therapy Daily Note ---
PT Daily Note-Current Subjective Patient is in bed and shakes his head "no" when asked to sit EOB. He does agree to exercises. Pain Numeric Pain Scale: 0-No Pain Location: No Pain Reported Mental Status Patient Orientation: Unable to Assess Attachments: Oxygen, Albrecht Catheter, IV Transfers Functional [place] Measure 0=Not Assessed/NA 4=Minimal Assistance 1=Total Assistance 5=Supervision or Setup 2=Maximal Assistance 6=Modified [place] 3=Moderate Assistance 7=Complete IndependenceIRFPAI Quality Coding Scale 6 Independent with activity with or without an assistive device 5 Patient requires set up or clean up by helper. Patient completes activity by themselves 4 Supervision or touching assist (CGA). [place] provide cues , steadying assist 3 The helper provides less than half the effort to complete the activity 2 The helper provides more than half the effort to complete the activity 1 Dependent. The helper does all the effort to complete an activity 7 Patient refused to complete or attempt activity 9 The patient did not perform the activity before the current illness or injury 88 Not attempted due to Medical conditions or safety concerns Exercises Supine Ex: Ankle pumps, Heel Slides, Straight leg raise, Hip abd/add Supine Reps: 15 (PROM bilaterally x 2 sets) Assessment Patient appears very lethargic at this time. Per , patient will dismiss to [place] for continued care. PT Shelter Goals Shelter Goals PT Shelter Goals Time Frame: Jun 28, 2016 Transfers (B,C,W/C) (FIM): 4 Gait (FIM): 1 Distance: 10' Gait Level of Assist: 4 Gait Assistive Device: FWW PT Plan Treatment/Plan Treatment Plan: Continue Plan of Care Treatment Plan: Bed Mobility, Functional Activity [place]man[place], Functional Strength, Gait, Safety, Therapeutic Exercise, Transfers Treatment Duration: Jun 28, 2016 Visits Per Week: 5-6 Minutes/Day (M-F): 15-30 Minutes/Day (Sat/[place]): 15-30 Time/GCodes Time In: 1125 Time Out: 1140 Total Billed Treatment Time: 15 Total Billed Treatment 1 visit EX 15 min REMIGIO NDIAYE PT Jun 22, 2016 11:55
[2016-06-22] MEDS ORDERED: TROUGH ORDER-PHARMACY XX NR (13:00)
[2016-06-23] VITALS: BP 158/82
[2016-06-23] MEDS: inSUlin (REGULAR) HUMAN 1 UNIT/0.01 ML (CHARGE PER UNIT) SC SCH ×3 (00:27→12:33)
[2016-06-23] MEDS: PIPERACILLIN SODIUM/TAZOBACTAM 4.5 GM in NS (IVPB) 100 ML IV SCH ×2 (00:27→10:27)
[2016-06-23] MEDS: VANCOMYCIN 1250 MG/NS 250 ML IVPB IV SCH ×4 (00:27→10:28)
[2016-06-23 04:30] VITALS: BP 167/87
[2016-06-23 05:23] LABS: BASOPHILS # (AUTO) 0.1 10^3/uL (0.0-0.1); BASOPHILS % (AUTO) 1 % (0-10); EOSINOPHILS # (AUTO) 0.3 10^3/uL (0.0-0.3); EOSINOPHILS % (AUTO) 3 % (0-10); LYMPHOCYTES # (AUTO) 1.8 X 10^3 (1.0-4.0); LYMPHOCYTES % (AUTO) 16 % (12-44); MEAN CORPUSCULAR HEMOGLOBIN 29 PG (25-34); MEAN CORPUSCULAR HGB CONC 32 G/DL (32-36); MEAN CORPUSCULAR VOLUME 88 FL (80-99); MEAN PLATELET VOLUME 10.7 FL (7.4-10.4); MONOCYTES # (AUTO) 1.4 X 10^3 (0.0-1.0); MONOCYTES % (AUTO) 12 % (0-12); NEUTROPHILS # (AUTO) 8.2 X 10^3 (1.8-7.8); NEUTROPHILS % (AUTO) 70 % (42-75); PLATELET COUNT 332 10^3/uL (130-400); RED BLOOD COUNT 4.68 10^6/uL (4.35-5.85); WHITE BLOOD COUNT 11.8 10^3/uL (4.3-11.0)
[2016-06-23 06:02] LABS: ANION GAP 12 MMOL/L (5-14); BLOOD UREA NITROGEN 22 MG/DL (7-18); BUN/CREATININE RATIO 21; CALCIUM 9.3 MG/DL (8.5-10.1); CARBON DIOXIDE 23 MMOL/L (21-32); CHLORIDE 116 MMOL/L (98-107); CREATININE SERUM 1.07 MG/DL (0.60-1.30); GFR ESTIMATED > 60; GLUCOSE 174 MG/DL (70-105); MAGNESIUM 2.1 MG/DL (1.8-2.4); POTASSIUM 3.5 MMOL/L (3.6-5.0); SODIUM 151 MMOL/L (135-145)
[2016-06-23] MEDS: RT-ALBUTEROL/IPRATROPIUM 3 ML (DUONEB) VIAL INH SCH ×2 (06:28→10:13)
[2016-06-23] MEDS: RT-ADVAIR HFA 115/21 MCG PER PUFF IH SCH (06:28)
[2016-06-23 08:00] VITALS: BP 193/93
[2016-06-23] MEDS ORDERED: ACYCLOVIR INJECTION 500 MG in NS (IVPB) 100 ML IV SCH (10:00)
--- NOTE | 2016-06-23 10:05 | Speech Therapy Daily Note ---
Speech Daily Progress Note Subjective The clinician was contacted by the patient's physician stating the patient was demonstrating increased alertness and participation on this date. A repeat swallow evaluation was requested as the patient is scheduled to undergo PEG placement in the near future. The patient was sitting upright in bed upon entrance. The patient greeted the clinician appropriately and agreed to participate in the re-evaluation of swallowing function. The patient intermittently responded to questions by clinician accurately, however, consistently demonstrated a consistent wet, gurgly vocal quality and mumbling. Limited eye contact was obtained throughout the session. Objective Prior to the evaluation, the clinician attempted to have patient clear hypopharyngeal secretions with a cued cough. The patient was able to provide a cough following maximum clinician verbal prompting, however, the cough was not efficient at clearing his vocal quality or secretions. - Honey-Thick Liquid (teaspoons of water), Puree (teaspoons of pudding): The patient consistently demonstrated an immediate, rigorous cough in response to all oral trials provided (honey-thick liquid and puree). The patient continued to demonstrate a wet vocal quality throughout and following the evaluation. The patient additionally demonstrated a delayed swallow response, as he orally held puree consistencies for approximately 30 seconds prior to swallowing. Recommendations: - At this time, the speech pathologist continues to recommend the patient remain NPO due to overt signs/symptoms of aspiration with the most restrictive diet possible. Consider alternative sources for total nutrition, hydration, and medication. This information was shared with the RN following the evaluation. Assessment Assessment Current Status: Poor Progress Treatment Plan Continue Plan of Care Speech Short Term Goals Short Term Goals Short Term Goals 1. The patient will demonstrate swallowing strategies with 80% accuracy and mild to moderate clinician verbal cueing. Time Frame-STG: One Week Speech Longterm Goals Longterm Goals 1. The patient will tolerate the least restrictive diet consistency without signs/symptoms of aspiration or laryngeal penetration. Time Frame: Two Weeks Speech-Plan Treatment Plan Speech Therapy Treatment Plan: Continue Plan of Care Continue skilled speech therapy to target improved swallowing safety/tolerance. Treatment Duration: Jul 04, 2016 # of days/week One to Three Visits Per Week: One to Three Minutes/Day (M-F): 15 Rehab Potential: Poor Safety Risks/Education Teaching Recipient: Patient Teaching Methods: Discussion Response to Teaching: Reinforcement Needed Education Topics Provided: Results, Recommendations Time Speech Therapy Time In: 09:45 Speech Therapy Time Out: 10:00 Total Billed Time: 15 Billed Treatment Time 1, CHRISTIANO JOHNSON Jun 23, 2016 10:05
--- NOTE | 2016-06-23 10:12 | Physical Therapy Daily Note ---
PT Daily Note-Current Subjective Patient is more alert and able to speak more clearly on this date. Pain Numeric Pain Scale: 0-No Pain Location: No Pain Reported Mental Status Patient Orientation: Person, Time, Situation Attachments: Oxygen, IV Transfers Functional [place] Measure 0=Not Assessed/NA 4=Minimal Assistance 1=Total Assistance 5=Supervision or Setup 2=Maximal Assistance 6=Modified [place] 3=Moderate Assistance 7=Complete IndependenceIRFPAI Quality Coding Scale 6 Independent with activity with or without an assistive device 5 Patient requires set up or clean up by helper. Patient completes activity by themselves 4 Supervision or touching assist (CGA). [place] provide cues , steadying assist 3 The helper provides less than half the effort to complete the activity 2 The helper provides more than half the effort to complete the activity 1 Dependent. The helper does all the effort to complete an activity 7 Patient refused to complete or attempt activity 9 The patient did not perform the activity before the current illness or injury 88 Not attempted due to Medical conditions or safety concerns Transfers (B, C, W/C) (FIM): 1 Scootin Rollin Supine to/from Sit: 1 Patient continues to require dependent assist with all bed mobility. Patient did demonstrate ability to sit EOB for 15 seconds at a time with SBA. all other times he required CGA with listing to left. Patient sat EOB x 15 min. Exercises Seated Therapy Exercises: Ankle pumps, Long arc quads Seated Reps: 5 (3 sets AROM sitting EOB) Assessment Patient has improved with gross motor skills. PT and Dr. Shrestha consulted on patient progress. Per , patient will require swing bed prior to possible admit to ARU. PT to increase activity as tolerated by patient. PT Usp Goals Kiln Labourer Goals PT Kiln Labourer Goals Time Frame: Jun 28, 2016 Transfers (B,C,W/C) (FIM): 4 Gait (FIM): 1 Distance: 10' Gait Level of Assist: 4 Gait Assistive Device: FWW PT Plan Treatment/Plan Treatment Plan: Continue Plan of Care Treatment Plan: Bed Mobility, Functional Activity Imani, Functional Strength, Gait, Safety, Therapeutic Exercise, Transfers Treatment Duration: Jun 28, 2016 Visits Per Week: 5-6 Minutes/Day (M-F): 15-30 Minutes/Day (Sat/[place]): 15-30 Time/GCodes Time In: 850 Time Out: 913 Total Billed Treatment Time: 23 Total Billed Treatment 1 visit FA 15 min EX 8 min REMIGIO NDIAYE PT Jun 23, 2016 10:12
[2016-06-23] MEDS: amLODIPine 5 MG (NORVASC) TAB PO SCH (10:16)
[2016-06-23] MEDS: GABAPENTIN 600 MG (NEURONTIN) TAB PO SCH ×2 (10:16→12:36)
[2016-06-23] MEDS: lisINopril 10 MG (PRINIVIL) TAB PO SCH (10:16)
[2016-06-23] MEDS: HALOPERIDOL 5 MG/ML (HALDOL) AMP IV SCH (10:27)
[2016-06-23] MEDS: CATHETER FLUSH 10 ML SYR IV PRN (10:28)
[2016-06-23] MEDS: PANTOPRAZOLE 40 MG/10 ML (PROTONIX) VIAL IV SCH (10:28)
[2016-06-23] MEDS: THIAMINE 100 MG/ML 2 ML (VITAMIN B-1) VIAL IV SCH (10:28)
[2016-06-23] MEDS: 1/2 NS IV SOLUTION 1,000 ML IV SCH (10:47)
--- NOTE | 2016-06-23 11:24 | Discharge Summary-Hospitalist ---
Diagnosis/Chief Complaint Date of Admission Jun 12, 2016 at 22:22 Date of Discharge Admission Diagnosis Assessment: Altered mental status and hypotension with history of similar event back in 2014 related to acute renal failure and overmedication DM HTN Discharge Diagnosis Assessment: Altered mental status and hypotension with history of similar event back in 2014 related to acute renal failure and overmedication requiring ICU admit with intubation even though ARF resolved and labs are stable now extubated. MRI negative and LP negative now extubated and only slight improved delirium status but now on tx for sepsis due to pneumonia and could have aspirated 3 days ago so having barium swallow today per speech therapy and failed but now delirium significantly improved and dysphagia screen indicated failure once again so Dr. San placing PEG tube DM HTN Leukocytosis Chart Review: No fever, Vitals stable, BP 155/78, WBC up to 20, Na+ 147, K+ 3.5 , Creat 0.96 director systems: Pt is going to floor today. Pt aspirated yesterday. Barium swallow will be performed today. Pt is a NH candidate. SW Review: Pt needs to go to [place]. Pt has calmed down and is not combative currently. Palliative Care: Does not look like CVA. Pt family does not know why pt is like he is. Patient Interview: Pt states he is okay. Physical exam was stable. Scribed by Ricardo Martinez under the direct supervision of Dr. Davis. AFVSS, Minimally conversant RRR, CTAB coarse upper respiratory sounds No edema Assessment: Altered mental status and hypotension with history of similar event back in 2014 related to acute renal failure and overmedication requiring ICU admit with intubation even though ARF resolved and labs are stable now extubated. MRI negative and LP negative now extubated and only slight improved delirium status but now on tx for sepsis due to pneumonia and could have aspirated water yesterday so having barium swallow today per speech therapy DM HTN Leukocytosis Plan: Speech therapy evaluation with barium swallow is appreciated Abx Tx to floor Pt will either need hospice or senior care care facility and likelihood of recovery is very low Reason Hospital Visit/Course CC: Confusion HPI: This is a 60-year-old white male that presented to the emergency room by ambulance with altered mental status. Upon assessment of medical record I do find a history and physical dated 10/16/14 by [facility] when he was admitted for the same type complaints. Apparently he had an issue with acute renal failure likely medication related along with hypotension and resolved without residual but I'm having difficulty finding any information whatsoever about the patient since [facility] ambulance service did not transport the patient last night nor is there any family or any contact information of the patient came with. He is very confused and unable to answer any questions reliably. Note from 06/23/16 Chart Review: No fever, Vitals stable, WBC down to 11.7, Hgb 13.4, Na+ 151, K+ 3.5, Once again analysis showed no HSV although pt now has shingles. Pt now on normal saline at 75 will increase that to 100. Dr. Deal Review: Pt failed barium swallow. Pt may have shingles now. Pt was tested yesterday for Herpes and was negative. Pt may need feeding tube. Dr. San Review: Pt negative on tests. Pt could not undergo barium swallow. Pt will be offered hospice option. Pt family is consenting for PEG tube. Pharmacy Review: Dr. San will perform PEG tube. Pt has been on ABX for 4 days and WBC has come down. director systems: Pt has a rash on shoulder blade. Pt may have shingles. Shingle test yesterday was negative for shingles. Pt had barium swallow and pt is NPO. Pt still has PO meds that will be held for now. Pt failed barium swallow by default. Heparin has been held. Pt definitely has shingles and pt is a new man today. Palliative Care Review: Dr. San will do PEG tube today. Pt now has a rash. Pt has been having blood sugar issues. Pt will either go hospice route or PEG tube. Pt is swallowing spit now. Pt has improved from yesterday and from all along. Pt was intubated for 4 or 5 days. Pt may have thrush in his throat. Pt is starting to improve so he will be given a chance to improve. PT Review: Pt was able to sit on bed this morning. Pt followed commands today. Pt is dependent on staff. Pt no longer has delirium. Patient Interview: Pt does not remember seeing Dr. Davis yesterday. Pt has his eyes open and is mumbling trying to answer questions. Pt states his rash does not hurt much. Physical exam was stable. Pt denies pain on his body and states his mouth is all that is bothering him. Speech Therapy Review: Pt has woken up today and is on track and answering questions. If pt can swallow PEG tube will be called off. No fever, vital signs stable, improved, up in bed, oriented times around 3, difficult to understand due to dry mouth Regular rate and rhythm, diminished to auscultation bilaterally but coarseness of the upper respiratory is noted No edema Plan: Speech Therapy eval Acyclovir IV PEG tube DC Vanc Scribed by Ricardo Martinez under the direct supervision of Dr. Davis. Hospital course: Patient had a very complicated and lengthy hospital course after he was found to have severe delirium with altered mental status and severe aggression that required leather restraints and multiple muscular min to control him enough to put him in leather restraints. Multiple medications were given including Haldol and all antipsychotics with no improvement so he eventually was intubated and placed in medicated coma and monitor closely. He did have ventilator associated pneumonia that was treated and overall he was able to be extubated with good results. Delirium persisted with altered mental status to such a level that I was unsure the recoverability of this patient so on day that we were going to discuss hospice of a chronic vegetative state he resumed normal thought processes although he still failed dysphagia screen so a PEG tube was placed he was transitioned to swing bed for completion of IV antibiotics for sepsis and facility acquired pneumonia and he will be monitored closely although much improved unsure of the recoverability amount he will have long-term but will support him regardless in any way possible to facilitate recovery. Discharge Summary Discharge Physical Examination Allergies: Coded Allergies: No Known Drug Allergies (Unverified , 12/09/14) Vitals & I&Os Vital Signs Date Time Temp Pulse Resp B/P (MAP) Pulse Ox O2 Delivery O2 Flow Rate FiO2 06/23/16 10:13 96 4.00 06/23/16 08:00 98.2 97 20 193/93 High Flow NC 06/19/16 08:00 21 Hospital Course Labs (last 24 hrs) Laboratory Tests 06/22/16 13:14: Vancomycin Level Trough 18.3 06/22/16 17:42: Glucometer 169H 06/23/16 00:07: Glucometer 161H 06/23/16 05:03: White Blood Count 11.8H, Red Blood Count 4.68, Hemoglobin 13.4, Hematocrit 41, Mean Corpuscular Volume 88, Mean Corpuscular Hemoglobin 29, Mean Corpuscular Hemoglobin Concent 32, Red Cell Distribution Width 15.0H, Platelet Count 332, Mean Platelet Volume 10.7H, Neutrophils (%) (Auto) 70, Lymphocytes (%) (Auto) 16 , Monocytes (%) (Auto) 12, Eosinophils (%) (Auto) 3, Basophils (%) (Auto) 1, Neutrophils # (Auto) 8.2H, Lymphocytes # (Auto) 1.8, Monocytes # (Auto) 1.4H, Eosinophils # (Auto) 0.3, Basophils # (Auto) 0.1, Sodium Level 151H, Potassium Level 3.5L, Chloride Level 116H, Carbon Dioxide Level 23, Anion Gap 12, Blood Urea Nitrogen 22H, Creatinine 1.07, Estimat Glomerular Filtration Rate > 60, BUN /Creatinine Ratio 21, Glucose Level 174H, Calcium Level 9.3, Phosphorus Level 3.0, Magnesium Level 2.1 06/23/16 12:22: Glucometer 170H Microbiology 06/12/16 Blood Culture - Final, Complete No growth 06/15/16 Gram Stain - Final, Complete 06/15/16 CSF Culture - Final, Complete No growth 06/19/16 Gram Stain - Final, Complete 06/19/16 Sputum Culture - Final, Complete Usual/normal tommy isolated. 06/16/16 Urine Culture - Final, Complete Pending Labs Laboratory Tests 06/23/16 12:22: Glucometer 170 Discharge Home Medications: Active Scripts Active Reported Vitamin D3 (Cholecalciferol (Vitamin D3)) 1,000 Unit Capsule 1,000 Unit PO DAILY Gabapentin 600 Mg Tablet 600 Mg PO TID Oxycodone-Acetaminophen 5-325 (Oxycodone HCl/Acetaminophen) 1 Each Tablet 1 Tab PO TID PRN Morphine Sulfate ER (Morphine Sulfate) 60 Mg Tablet.er 60 Mg PO Q12H Diazepam 2 Mg Tablet 2 Mg PO Q8H Ventolin Hfa (Albuterol Sulfate) 1 Puff Puff 1-2 Puff INH QID Meclizine HCl 25 Mg Tablet 12.5 Mg PO QID TAKES 1/2 (25MG) TABLET Vesicare (Solifenacin Succinate) 5 Mg Tablet 5 Mg PO DAILY Amlodipine Besylate 5 Mg Tablet 5 Mg PO DAILY Cyclobenzaprine HCl 10 Mg Tablet 10 Mg PO DAILY Levemir (Insulin Determir) 1,000 Units/10 Ml Soln 30 Units SC BID Novolog (Insulin Aspart) 100 Unit/1 Ml Susp 30 Units SC TIDWM Albuterol Sulfate 2.5 Mg/3 Ml Vial.neb 2.5 Mg NEB QID Symbicort 160-4.5 Mcg Inhaler (Budesonide/Formoterol Fumarate) 10.2 Gm Hfa.aer.ad 2 Puff IH BID Fluticasone Propionate 16 Gm Craig.susp 2 Craig NS DAILY Instructions to patient/family Please see electonic discharge instructions given to patient. Clinical Quality Measures DVT/VTE Risk/Contraindication: Risk Factor Score Per Nursin RFS Level Per Nursing on Admit: 4+=Very High ANGÉLICA DAVIS DO Jun 23, 2016 11:24
[2016-06-27] MEDS ORDERED: FLUT12AE4 IH (09:13)
[2016-06-27] MEDS ORDERED: LISI10TA2 PO (09:13)
[2016-06-27] MEDS ORDERED: IPRA3AMP INH (09:13)
[2016-06-27] MEDS ORDERED: AMLO5TAB2 PO (09:13)
[2016-06-27] MEDS ORDERED: INSU100V3 SC (09:13)
== END 2016-06-23 12:38 | disposition swing bed (61) | DRG 682 ==
LOC: DELPENDDIS → EDUNIT# 19:23 → ER 19:24 → 4TH 22:22 → ICU 06-14 11:00 → 4TH 06-22 10:40
PROVIDERS: ADMIT Internal Medicine; ATTEND Internal Medicine
PROC: 5A1945Z Respiratory Ventilation, 24-96 Consecutive Hours (ICD-10-PCS; principal; 2016-06-15)
PROC: 009U3ZX Drainage of Spinal Canal, Percutaneous Approach, Diagnostic (ICD-10-PCS; 2016-06-15)
DX: N17.9 Acute kidney failure, unspecified (principal); G93.41 Metabolic encephalopathy; A41.9 Sepsis, unspecified organism; J18.9 Pneumonia, unspecified organism; E66.9 Obesity, unspecified; Z68.41 Body mass index [BMI] 40.0-44.9, adult; B02.9 Zoster without complications; E87.6 Hypokalemia; R41.0 Disorientation, unspecified; R13.10 Dysphagia, unspecified; E86.9 Volume depletion, unspecified; I10 Essential (primary) hypertension; E11.65 Type 2 diabetes mellitus with hyperglycemia; J44.9 Chronic obstructive pulmonary disease, unspecified; M19.91 Primary osteoarthritis, unspecified site; M54.9 Dorsalgia, unspecified; Z99.81 Dependence on supplemental oxygen; Z87.891 Personal history of nicotine dependence; Z79.4 Long term (current) use of insulin
CPT/HCPCS: 36415; 36569; 70450; 70553; 71010; 74230; 76937; 80048; 80053; 80202; 80306; 80320; 80329; 81000; 82140; 82805; 82945; 82962; 83036; 83605; 83615; 83735; 84100; 84157; 84450; 84460; 84484; 85007; 85025; 85027; 85610; 85730; 86141; 87040; 87070; 87088; 87205; 87529; 87804; 89051; 93005; 94002; 94003; 94640; 94660; 94760; 94799; 96360

== ENCOUNTER 2016-06-23 10:33 | Inpatient (IN) | payer MEDICARE, MEDICAID ==
[~2016-06-23] VITALS: Ht 170.2 cm; Wt 108.9 kg
[~2016-06-23 10:33] MED LIST changes: +ALBU2.5V4 NEB; +AMLO5TAB2 PO; +CHOL10007 PO; +INSU100V16 SC; +INSU100V5 SC; +MECL-106 PO; +MORP60TA52 PO; +NF-SOLIF5T PO; +OXYC-471 PO; +RT-ALBUINH INH
[2016-06-23 12:00] VITALS: BP 189/89
[2016-06-23] MEDS ORDERED: ACETAMINOPHEN 650 MG SUPP (TYLENOL) PR PRN (12:45)
[2016-06-23] MEDS ORDERED: morphine INJ 4 MG/ML 1 ML (VIAL/SYRINGE) IVP PRN (12:45)
[2016-06-23] MEDS ORDERED: VANCOMYCIN INJECTION 1,250 MG in NS (IVPB) 250 ML IV SCH (12:45)
[2016-06-23] MEDS ORDERED: CATHETER FLUSH 10 ML SYR IV PRN (12:45)
[2016-06-23] MEDS ORDERED: hydrALAZINE (APESOLINE) 20 MG/ML VIAL IV PRN (12:45)
--- NOTE | 2016-06-23 12:46 | CONSULTATION REPORT ---
DATE OF CONSULTATION: 06/23/2016 CONSULTING PHYSICIAN: Dr. Shrestha. Mr. Michael Ling is a 60-year-old male with multiple medical problems. He presented on this admission with altered mental status and found to be in acute renal failure, as well as overly medicated and hypotensive. He also shows signs of sepsis requiring ICU admission and intubation. Since that time, he has been extubated and his renal status prolapse has improved; however he continues to have severe delirium and confusion. Speech pathology has been following his course and he does have severe dysphagia and is an aspiration risk. He had a similar episode to this in 2014. PAST MEDICAL HISTORY: 1. Altered mental status. 2. Acute renal failure. 3. Diabetes. 4. Hypertension. 5. Dysphagia. PAST SURGERIES: 1. Right shoulder. 2. Right ankle. 3. Penile implant and artificial testicle placement. ALLERGIES: No known drug allergies. MEDICATIONS: 1. Albuterol breathing treatments q.i.d. 2. Amlodipine 5 mg daily. 3. Budesonide-formoterol 2 puffs b.i.d. 4. Cyclobenzaprine 10 mg daily. 5. Diazepam 2 mg every 8 hours. 6. Fluticasone propionate spray 2 sprays daily. 7. Gabapentin 600 mg t.i.d. 8. Insulin 30 units t.i.d. 9. Levemir insulin 30 units b.i.d. 10. Meclizine 12.5 mg q.i.d. 11. Morphine 60 mg p.o. every 12 hours. 12. Oxycodone p.r.n. 13. VESIcare 5 mg daily. SOCIAL HISTORY: Previous smoke, unknown alcohol. FAMILY HISTORY: 1. Mother and sister - diabetes. 2. Father - history of stroke. VITAL SIGNS: Temperature 98.2, blood pressure 193/93, pulse 97, respirations 20, pulse oximetry 96% on 4 liters nasal cannula. REVIEW OF SYSTEMS: This is a well nourished male who is awake and alert; however, confused and does not answer questions appropriately. He does not appear to be in any acute distress. No shortness of breath or difficulty breathing. No known nausea or vomiting. Having bowel movements. No fever, chills, no recent inadvertent weight loss. PHYSICAL EXAMINATION: CHEST: Good breath sounds bilaterally. HEART: Regular. EXTREMITIES: No lower extremity edema. Negative Homans sign. HEENT: No scleral icterus. No cervical lymphadenopathy. ABDOMEN: Soft, nontender, nondistended. LABS: WBC 11.8, hemoglobin 13.4, hematocrit 41, platelets 332. BUN 22, creatinine 1.07. ASSESSMENT AND PLAN: 60-year-old male with severe dysphagia which is multimodal. He has had multiple issues with noncompliance and medical problems including diabetes, pneumonia, sepsis and has had a prolonged hospital course with sepsis requiring intubation. He is confused and has failed multiple small studies. He is also a risk for aspiration. We will proceed with an EGD and percutaneous gastrostomy tube placement. Job ID: [id number] Dictated Date: 06/23/2016 10:54:39 Principal Quality Engineer Date: 06/23/2016 12:33:48/carolyn
[2016-06-23] MEDS ORDERED: RT-ALBUTEROL/IPRATROPIUM 3 ML (DUONEB) VIAL INH PRN (13:00)
[2016-06-23] MEDS ORDERED: LIDOCAINE JELLY 2% (XYLOCAINE) 5 ML TUBE ONE (13:04)
[2016-06-23] MEDS ORDERED: fentaNYL INJECTION 100 MCG/2 ML AMP ONE ×2 (13:04→13:44)
[2016-06-23] MEDS ORDERED: MIDAZOLAM 2 MG/2 ML (VERSED) VIAL ONE ×3 (13:04→13:44)
[2016-06-23] MEDS ORDERED: HURRICAINE EXT TUBE (BENZOCAINE) ONE (13:05)
--- NOTE | 2016-06-23 13:14 | Speech Therapy Progress Note ---
Therapy Progress Note Speech pathology received swing bed consultation for modified barium swallow. The patient is not appropriate for a repeat bedside swallowing evaluation at this time, as he is NPO due to overt signs/symptoms of aspiration demonstrated during bedside swallowing evaluation on this date (10:30am), as well as, for a PEG placement procedure with . The clinician has left a message with scheduling for an appointment with Radiology to complete the requested modified barium swallow on the first available date and time. Speech pathology will continue to follow patient for appropriate of repeat evaluation and with date of requested study. Thank you. CHRISTIANO HEWITT Jun 23, 2016 13:14
[2016-06-23] MEDS ORDERED: HALOPERIDOL 5 MG/ML (HALDOL) AMP IM/IV PRN (13:15)
--- NOTE | 2016-06-23 13:19 | Speech Therapy Progress Note ---
Therapy Progress Note The patient will undergo a repeat evaluation (modified barium swallow evaluation ) on Sunday, June 26, 2016 at 11:00am. Thank you. CHRISTIANO HEWITT Jun 23, 2016 13:19
[2016-06-23] MEDS: MIDAZOLAM 2 MG/2 ML (VERSED) VIAL IVP PRN ×3 (13:20→13:39)
[2016-06-23] MEDS: fentaNYL INJECTION 100 MCG/2 ML AMP IVP PRN ×4 (13:21→13:41)
[2016-06-23] MEDS ORDERED: LIDOCAINE JELLY 2% (XYLOCAINE) 30 ML TUBE TOP ONE (13:30)
[2016-06-23] MEDS ORDERED: FLU TRIvalent (5 YOA+) 2016-17 (AFLURIA) 0.5 ML IM ONE (13:30)
[2016-06-23] MEDS ORDERED: HURRICAINE EXT TUBE (BENZOCAINE) XX ONE (13:30)
--- NOTE | 2016-06-23 13:56 | Occ Therapy Progress Note ---
Therapy Progress Note 1315 Attempted OT evaluation but pt is in surgery for placement of PEG. Will evaluate tomorrow. RICKIE HAMPTON OT Jun 23, 2016 13:56
[2016-06-23] MEDS: RT-ALBUTEROL/IPRATROPIUM 3 ML (DUONEB) VIAL INH SCH ×2 (15:07→19:40)
--- NOTE | 2016-06-23 15:12 | Progress Note-Post Operative ---
Post-Operative Progess Note Surgeon (s)/Broom Man (s) Surgeon HARVINDER DAMIAN MD Broom Man: none Pre-Operative Diagnosis dysphagia, aspiration risk Post-Operative Diagnosis same Post-Op Procedure Note Date of Procedure: Jun 23, 2016 Name of Procedure Performed: EGD with bx, PEG tuble placment. Description of the Procedure: EGD with bx, PEG tuble placment. Findings of the Procedure . Anesthesia Type CS with local Estimated blood loss (mL): minimal Specimen(s) collected/removed GE jxn, antrum HARVINDER DAMIAN MD Jun 23, 2016 3:12 pm
--- NOTE | 2016-06-23 15:33 | Physical Therapy Progress Note ---
Therapy Progress Note Patient just got back from surgery and evaluation attempted but patient is too lethargic. Discussed with nurse and agree to see patient tomorrow. AKASH GUERRA PT Jun 23, 2016 15:33
[2016-06-23] MEDS: 1/2 NS IV SOLUTION 1,000 ML IV SCH (16:16)
[2016-06-23 16:30] VITALS: BP 186/87
[2016-06-23] MEDS: PANTOPRAZOLE 40 MG/10 ML (PROTONIX) VIAL IV SCH ×2 (16:43→21:20)
[2016-06-23] MEDS: GABAPENTIN 600 MG (NEURONTIN) TAB PO SCH ×2 (16:43→21:20)
[2016-06-23] MEDS: PIPERACILLIN SODIUM/TAZOBACTAM 4.5 GM in NS (IVPB) 100 ML IV SCH ×2 (16:44→23:58)
[2016-06-23 18:15] VITALS: BP 165/85
[2016-06-23] MEDS: inSUlin (REGULAR) HUMAN 1 UNIT/0.01 ML (CHARGE PER UNIT) SC SCH (18:19)
[2016-06-23] MEDS: RT-ADVAIR HFA 115/21 MCG PER PUFF IH SCH (19:41)
[2016-06-23 19:50] VITALS: BP 154/83
[2016-06-23] MEDS: HALOPERIDOL 5 MG/ML (HALDOL) AMP IV SCH (21:19)
[2016-06-23] MEDS: ACYCLOVIR INJECTION 500 MG in NS (IVPB) 100 ML IV SCH (21:20)
[2016-06-24] VITALS: BP 176/82
[2016-06-24] MEDS: 1/2 NS IV SOLUTION 1,000 ML IV SCH ×4 (00:01→20:34)
[2016-06-24] MEDS: inSUlin (REGULAR) HUMAN 1 UNIT/0.01 ML (CHARGE PER UNIT) SC SCH ×4 (00:08→18:59)
[2016-06-24] MEDS: ACYCLOVIR INJECTION 500 MG in NS (IVPB) 100 ML IV SCH ×3 (05:04→20:33)
[2016-06-24 05:55] LABS: BASOPHILS # (AUTO) 0.1 10^3/uL (0.0-0.1); BASOPHILS % (AUTO) 1 % (0-10); EOSINOPHILS # (AUTO) 0.3 10^3/uL (0.0-0.3); EOSINOPHILS % (AUTO) 2 % (0-10); LYMPHOCYTES % (AUTO) 18 % (12-44); MEAN CORPUSCULAR HEMOGLOBIN 28 PG (25-34); MEAN CORPUSCULAR HGB CONC 32 G/DL (32-36); MEAN CORPUSCULAR VOLUME 88 FL (80-99); MEAN PLATELET VOLUME 10.9 FL (7.4-10.4); MONOCYTES # (AUTO) 1.5 X 10^3 (0.0-1.0); MONOCYTES % (AUTO) 13 % (0-12); NEUTROPHILS # (AUTO) 7.5 X 10^3 (1.8-7.8); NEUTROPHILS % (AUTO) 66 % (42-75); PLATELET COUNT 316 10^3/uL (130-400); RED BLOOD COUNT 4.71 10^6/uL (4.35-5.85); RED CELL DISTRIBUTION WIDTH 14.5 % (10.0-14.5); WHITE BLOOD COUNT 11.4 10^3/uL (4.3-11.0)
[2016-06-24 06:00] VITALS: BP 119/76
[2016-06-24 06:21] LABS: ALANINE AMINOTRANSFERASE 17 U/L (0-55); ALBUMIN 3.1 G/DL (3.2-4.5); ANION GAP 12 MMOL/L (5-14); ASPARTATE AMINO TRANSFERASE 21 U/L (5-34); BILIRUBIN,TOTAL 0.6 MG/DL (0.1-1.0); BLOOD UREA NITROGEN 22 MG/DL (7-18); BUN/CREATININE RATIO 21; CALCIUM 9.2 MG/DL (8.5-10.1); CARBON DIOXIDE 25 MMOL/L (21-32); CHLORIDE 115 MMOL/L (98-107); CREATININE SERUM 1.04 MG/DL (0.60-1.30); GFR ESTIMATED > 60; GLUCOSE 149 MG/DL (70-105); SODIUM 152 MMOL/L (135-145); TOTAL PROTEIN 6.3 G/DL (6.4-8.2)
[2016-06-24] MEDS: RT-ALBUTEROL/IPRATROPIUM 3 ML (DUONEB) VIAL INH SCH ×4 (07:10→19:15)
[2016-06-24] MEDS: RT-ADVAIR HFA 115/21 MCG PER PUFF IH SCH ×2 (07:11→19:16)
--- NOTE | 2016-06-24 08:34 | Physical Therapy Evaluation ---
PT Evaluation-General Medical Diagnosis Admission Date Jun 23, 2016 at 12:38 Onset Date: Jun 23, 2016 Therapy Diagnosis Therapy Diagnosis: acute renal failure Height/Weight Height (Feet): 5 Height (Inches): 7.00 Weight (Pounds): 240 Weight (Ounces): 6.0 Precautions Precautions/Isolations: Contact Isolation, Standard Precautions Weight Bear Status Weight Bearing Restriction: Weight Bearing/Tolerated Referral Physician: Henrietta Reason for Referral: Evaluation/Treatment Medical History Pertinent Medical History: Arthritis, DM, HTN Social History Home: Single Level Current Living Status: Significant Other Prior/Core FIM Prior Level of Function Functional [place] Measure 0=Not Assessed/NA 4=Minimal Assistance 1=Total Assistance 5=Supervision or Setup 2=Maximal Assistance 6=Modified [place] 3=Moderate Assistance 7=Complete [place] Bed Mobility: 7 Transfers (B,C,W/C) (FIM): 7 Gait: 6 Locomotion: 6 PT Evaluation-Current Subjective The patient is very lethargic secondary to medication. He was able to wake up and participate some. Pain Numeric Pain Scale: 0-No Pain Objective Patient Orientation: Person, Confused ROM/Strength ROM Lower Extremities WFL Strenght Lower Extremities 3+/5 Transfers Functional [place] Measure 0=Not Assessed/NA 4=Minimal Assistance 1=Total Assistance 5=Supervision or Setup 2=Maximal Assistance 6=Modified [place] 3=Moderate Assistance 7=Complete [place] Transfers (B, C, W/C) (FIM): 2 Scootin Rollin Supine to/from Sit: 2 Sit to/from Stand: 2 bed t/f WC(FIM only if WC use): 2 Sit to Lying (QC): 2 Lying to Sitting/Side of Bed(Q: 2 Sit to Stand (QC): 2 Chair/Upm-my-Mijox Xfer(QC): 2 Gait Does the Patient Walk?: No and Walking Goal IS indicated Mode of Locomotion: Walk Anticipated Mode of Locomotion: Walk Gait (FIM): 0 Distance (FIM): 0=does not occure Distance: 0 Walk 150 ft (QC): 0 Comments/Gait Description Patient needed maximal assistance for sit to stand and was unable to take steps. Wheelchair Training Does the Pt Use a Wheelchair?: No Balance Sitting Static: Fair Sitting Dynamic: Poor Standing Static: Poor Assessment/Needs Patient was very lethargic so it is difficult to determine true function. The patient should do well as a result of skilled therapy and be able to return to PLOF. Rehab Potential: Fair PT Short Term Goals Short Term Goals Time Frame: Jul 01, 2016 Transfers (B,C,W/C) (FIM): 4 Gait (FIM): 5 Distance (FIM): 4=463-21 ft Gait Distance Comment: 50 feet Gait Level of Assist: 5 Gait Assistive Device: FWW PT Snaker Driving Horses Goals Longterm Goals PT Snaker Driving Horses Goals Time Frame: Jul 08, 2016 Transfers (B,C,W/C) (FIM): 6 Sit to Lying (QC): 6 Lying-Sitting on Side/Bed(QC): 6 Sit to Stand (QC): 6 Rollin Chair/Oji-cv-Rucpj Xfer(QC): 6 Does the Patient Walk: No and Walking Goal IS indicated Gait (FIM): 6 Gait distance (FIM): 3=150 ft Distance: 150 feet Walk 50ft with 2 Turns (QC): 6 Walk 150 ft (QC): 6 Gait Level of Assist: 6 Gait Assistive Device: FWW Does the Pt use WC or Scooter?: No PT Plan Problem List Problem List: Activity Tolerance, Functional Strength, Safety, Balance, Gait, Transfer, Bed Mobility Treatment/Plan Treatment Plan: Continue Plan of Care Treatment Plan: Bed Mobility, Education, Functional Activity Imani, Functional Strength, Gait, Safety, Therapeutic Exercise, Transfers # of days/week 6 Visits Per Week: 11 Minutes/Day (M-F): 30 Minutes/Day (Sat/[place]): 15 Pt/Family Agrees w/Plan: Yes Time/GCodes Time In: 745 Time Out: 820 Total Billed Treatment Time: 35 Total Billed Treatment 1, EV Low Complexity x 35' G Codes Necessary: No ISAIAH RODRIGUEZ PT Jun 24, 2016 08:34
[2016-06-24] MEDS: PIPERACILLIN SODIUM/TAZOBACTAM 4.5 GM in NS (IVPB) 100 ML IV SCH ×2 (08:48→17:24)
[2016-06-24] MEDS: THIAMINE 100 MG/ML 2 ML (VITAMIN B-1) VIAL IV SCH (08:50)
[2016-06-24] MEDS: lisINopril 10 MG (PRINIVIL) TAB PO SCH (08:50)
[2016-06-24] MEDS: GABAPENTIN 600 MG (NEURONTIN) TAB PO SCH ×3 (08:50→20:33)
[2016-06-24] MEDS: amLODIPine 5 MG (NORVASC) TAB PO SCH (08:50)
[2016-06-24] MEDS: PANTOPRAZOLE 40 MG/10 ML (PROTONIX) VIAL IV SCH ×2 (08:50→20:33)
[2016-06-24] MEDS: HALOPERIDOL 5 MG/ML (HALDOL) AMP IV SCH ×2 (08:51→20:33)
--- NOTE | 2016-06-24 11:50 | Occupational Therapy Eval ---
OT Evaluation-General/PLF Medical Diagnosis Admission Date Jun 23, 2016 at 12:38 Medical Diagnosis: AMS, ARF Onset Date: Jun 12, 2016 Therapy Diagnosis Therapy Diagnosis: weakness, decr self care, decr activity tolerance, decr funct mobility Height/Weight Height (Feet): 5 Height (Inches): 7.00 Weight (Pounds): 240 Weight (Ounces): 6.0 Precautions Precautions/Isolations: Contact Isolation, Fall Prevention Safety Interventions: Bed Exit Alarm, Reorient-Attempt, Reorient-PRN Weight Bear Status Weight Bearing Restriction: Weight Bearing/Tolerated Referral Physician: Henrietta Referral Reason: Evaluation/Treatment Medical History Pertinent Medical History: Arthritis, DM, HTN Additional Medical History Shoulder surgery, R ankle surgery, penile implant, testicular implant, renal failure Current History Admitted through ED, diagnosed with metabolic encephalopathy. Had been intubated and agitated, transferred to ICU for management. Surgery 06-24-16 for PEG insertion Social History Home: Single Level Current Living Status: Significant Other ADL-Prior Level of Function ADL PLOF Comments Pt indicated that he had been able to manage his basic self care needs before admission. 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 DME/Equipment Comments Unknown if he has and DME or bathroom safety equipment OT Current Status Subjective Pt seen in room, up in bed, agreeable to OT. Pt was able to state his name and and knew today's date ("Someone told me earlier.") He said he was uncomfortable but not in any pain. Appearance Awake, cooperative, mumbles so is hard to understand at times Mental Status/Objective Attachments: Central Line, Oxygen, PEG Tube Current Hand Dominance: Right Upper Extremity ROM R shoulder limited to about 90 degrees flex/abd, protected by pt. L UE grossly WFL. Pt was unable to raise either arm past about 30 degrees actively. On R could hold arm overhead briefly when placed but tolerated no resistance. Gross strength elbow and distal is 4/5 bilat. ADL-Treatment ADL-Current Pt needed skilled cues to use bilat UEs during ADLs but did improve with practice. Nursing reported he becomes agitated at times and was not comfortable taking him to the shower. May attempt next week with shower chair. Functional [place]les Measure 0=Not Assessed/NA 4=Minimal Assistance 1=Total Assistance 5=Supervision or Setup 2=Maximal Assistance 6=Modified [place] 3=Moderate Assistance 7=Complete IndependenceIRFPAI Quality Coding Scale 6 Independent with activity with or without an assistive device 5 Patient requires set up or clean up by helper. Patient completes activity by themselves 4 Supervision or touching assist (CGA). [place] provide cues , steadying assist 3 The helper provides less than half the effort to complete the activity 2 The helper provides more than half the effort to complete the activity 1 Dependent. The helper does all the effort to complete an activity 7 Patient refused to complete or attempt activity 9 The patient did not perform the activity before the current illness or injury 88 Not attempted due to Medical conditions or safety concerns Eating (FIM): 0 (NPO) Eating (QC): 88 Grooming (FIM): 3 (Pt was able to get comb to hair with both hands but did not have UE strength to reach the top of his head. He could brush teeth using each hand but was not thorough. He could get a washcloth to his mouth but not reach eyes or forehead due to arm weakness ) Oral Hygiene (QC): 3 Toileting (FIM): 1 (Does not get up to toilet. Uses urinal and unable to empty it. No clothing to manage) Toileting Hygiene (QC): 2 Toilet/Commode Transfer (FIM): 0 Toilet Transfer (QC): 88 Pt not able to transfer to [facility] at this time. Uses urinal, with no clothing to manage. Pt is NPO for feeding Education OT Patient Education: Purpose of tx/functional activities, Rehab process Teaching Recipient: Patient Teaching Methods: Discussion Response to Teaching: Reinforcement Needed OT Short Term Goals Short Term Goals Time Frame: Jul 08, 2016 Grooming(FIM): 4 Bathing(FIM): 4 Upper Body Dressing(FIM): 4 Lower Body Dressing(FIM): 3 Toileting(FIM): 3 Transfers (B,C,W/C) (FIM): 4 Toilet/Commode Transfer(FIM): 4 Shower Transfer(FIM): 4 Additional Short Term Goals: 2-Verbalize Understanding, 3-ImproveStrength/Imani 1=Demonstrate adherence to instructed precautions during ADL tasks. 2=Patient will verbalize/demonstrate understanding of assistive devices/ modifications for ADL. 3=Patient will improve strength/tolerance for activity to enable patient to perform ADL's. OT Ancient Art Curator Goals Ancient Art Curator Goals Time Frame: Jul 22, 2016 Eating (FIM): 6 Eating (QC): 6 Groomin Oral Hygiene (QC): 6 Bathing(FIM): 5 Upper Body Dressing(FIM): 5 Lower Body Dressing(FIM): 5 Toileting(FIM): 5 Toileting Hygiene (QC): 5 Toilet/Commode Transfer(FIM): 5 Toilet/Commode Transfer (QC): 5 Shower Transfer(FIM): 5 Additional Goals: 2-Verbalize Understanding, 3-ImproveStrength/Imani 1=Demonstrate adherence to instructed precautions during ADL tasks. 2=Patient will verbalize/demonstrate understanding of assistive devices/ modifications for ADL. 3=Patient will improve strength/tolerance for activity to enable patient to perform ADL's. OT Education/Plan Problem List/Assessment Assessment: Decreased Activ Tolerance, Decreased Safety Aware, Decreased UE Strength, Dependent Transfers, Impaired Cognition, Impaired Self-Care Skills Pt would benefit from skilled OT to increase his independence in basic self care to allow him to move to least restrictive environment and decrease caregiver burden. Discharge Recommendations Plan/Recommendations: Continue POC Therapy D/C Recommendations: Halfway (TCU/NH) Treatment Plan/Plan of Care Treatment,Training & Education: Yes Patient would benefit from OT for education, treatment and training to promote independence in ADL's, mobility, safety and/or upper extremity function for ADL' s. Plan of Care: ADL Retraining, Functional Mobility, UE Funct Exercise/Act, UE Neuromus Re-Ed/Coord Treatment Duration: Jul 22, 2016 # of days/week 5 Visits Per Week: 5 Agreement: Yes Rehab Potential: Fair Time/GCodes Start Time: 09:40 Stop Time: 10:05 Total Time Billed (hr/min): 25 Billed Treatment Time visit, 10 minutes evaluation moderate intensity, 15 minutes ADL RICKIE HAMPTON OT Jun 24, 2016 11:50
[2016-06-24 18:00] VITALS: BP 161/83
[2016-06-25] MEDS: inSUlin (REGULAR) HUMAN 1 UNIT/0.01 ML (CHARGE PER UNIT) SC SCH ×4 (01:17→17:49)
[2016-06-25] MEDS: PIPERACILLIN SODIUM/TAZOBACTAM 4.5 GM in NS (IVPB) 100 ML IV SCH ×3 (01:17→17:50)
[2016-06-25] MEDS: ACYCLOVIR INJECTION 500 MG in NS (IVPB) 100 ML IV SCH ×3 (05:16→21:30)
[2016-06-25 06:00] VITALS: BP 153/74
[2016-06-25] MEDS: RT-ALBUTEROL/IPRATROPIUM 3 ML (DUONEB) VIAL INH SCH ×4 (07:08→18:53)
[2016-06-25] MEDS: RT-ADVAIR HFA 115/21 MCG PER PUFF IH SCH ×2 (07:08→18:53)
[2016-06-25] MEDS: 1/2 NS IV SOLUTION 1,000 ML IV SCH ×2 (09:27→21:30)
[2016-06-25] MEDS: HALOPERIDOL 5 MG/ML (HALDOL) AMP IV SCH ×2 (09:28→21:30)
[2016-06-25] MEDS: PANTOPRAZOLE 40 MG/10 ML (PROTONIX) VIAL IV SCH ×2 (09:32→21:29)
[2016-06-25] MEDS: amLODIPine 5 MG (NORVASC) TAB PO SCH (09:34)
[2016-06-25] MEDS: GABAPENTIN 600 MG (NEURONTIN) TAB PO SCH ×3 (09:34→21:30)
[2016-06-25] MEDS: lisINopril 10 MG (PRINIVIL) TAB PO SCH (09:34)
[2016-06-25] MEDS: THIAMINE 100 MG/ML 2 ML (VITAMIN B-1) VIAL IV SCH (09:36)
--- NOTE | 2016-06-25 09:57 | Progress Note-Hospitalist ---
Standard Progress Note Progress Notes/Assess & Plan Date Seen 06/25/16 Assess & Plan/Chief Complaint The patient is alert and sitting up in the chair at bedside. He carries on a conversation. He knows that it Sunday and that he is in the hospital. He inquires about having water to drink. He is been observed by the nurses to have choking fits when trying to drink water. He is therefore only on tube feeding. He is to have a barium swallowing study in the morning. He displays a fairly impressive vocabulary. Physical exam: he has a mountain man appearance. Lungs show shallow respirations. CV is regular without murmur. Impression: Untyped illness characterized by decreased level of consciousness and ultimately respiratory failure. Dysphagia. Plan: Barium swallow in a.m. Continued feeding only through PEG tube. After swallowing difficulties are clarified, it would be reasonable to proceed with an IRF evaluation. Labs Laboratory Tests 06/24/16 05:00 KEL LAKE MD Jun 25, 2016 09:57
[2016-06-25 17:39] VITALS: BP 147/80
[2016-06-26] MEDS: inSUlin (REGULAR) HUMAN 1 UNIT/0.01 ML (CHARGE PER UNIT) SC SCH ×4 (00:12→18:00)
[2016-06-26] MEDS: PIPERACILLIN SODIUM/TAZOBACTAM 4.5 GM in NS (IVPB) 100 ML IV SCH ×2 (00:13→08:50)
[2016-06-26 05:31] VITALS: BP 126/80
[2016-06-26] MEDS: ACYCLOVIR INJECTION 500 MG in NS (IVPB) 100 ML IV SCH ×3 (06:09→23:55)
[2016-06-26] MEDS: RT-ALBUTEROL/IPRATROPIUM 3 ML (DUONEB) VIAL INH SCH ×4 (07:55→19:11)
[2016-06-26 08:00] VITALS: BP 140/80
--- NOTE | 2016-06-26 08:06 | OPERATIVE REPORT ---
PROCEDURE PHYSICIAN: HARVINDER DAMIAN DATE OF PROCEDURE: 06/23/2016 PREOPERATIVE DIAGNOSES: 1. Severe dysphagia with mental status change. 2. Acute renal failure. POSTOPERATIVE DIAGNOSES: 1. Severe dysphagia with mental status change. 2. Acute renal failure. PROCEDURES: 1. EGD with biopsy. 2. Percutaneous gastrostomy tube placement. SURGEON: Dr. Damian. ANESTHESIA: Conscious sedation and local. ESTIMATED BLOOD LOSS: Minimal. FINDINGS: 1. Reflux esophagitis, class B. 2. No ulcers or strictures. 3. Small hiatal hernia, approximately 1.5 cm in size. 4. There was a moderate to severe gastritis with small ulceration of the stomach antrum. 5. The pylorus and duodenum appeared normal with no distal obstructions. DISPOSITION: The patient tolerated the procedure well. BRIEF HISTORY: Mr. Michael Ling is a 60-year-old male who was admitted for mental status changes, as well as acute renal failure. This gentleman has an extensive past medical history and has had a similar occurrence around 2014. He appears to be noncompliant and does have a history of diabetes as well. While on this admission, he has had severe mental status changes, which have not improved upon correction of his medical problems. He unable to take in solids or liquids and speech pathology has been consulted. He underwent a swallow study today which showed severe dysphagia, as well as the high risk for aspiration. The risks and benefits of gastrostomy tube were explained the patient and there was full understanding and would like to proceed with placement of gastrostomy tube placement. PROCEDURE: EGD: The patient was brought to the endoscopy suite left supine on his bed. After adequate IV pain and sedative medications and conscious sedation anesthesia, the mouthpiece was applied. The endoscope was placed in the mouth, visualizing the pharynx and hypopharyngeal region. Vocal cords, epiglottis and vallecula identified and appeared to be normal. The endoscope was then gently intubated into the esophageal opening and the esophagus insufflated. The endoscope was then advanced through the first, second, and 3rd portions esophagus at the level of the GE junction, a reflux esophagitis, class B identified. There were no ulcers or strictures identified in this region. A biopsy was taken with forceps with visualization of good hemostasis. The endoscope was then advanced into stomach and endoscope retroflexed visualizing a small hiatal hernia, approximately 1.5 cm in size. There was also a moderate to severe gastritis noted towards the stomach antrum, with old small antral ulceration identified with an overlying fibrin clot. This was biopsied with forceps with visualization of good hemostasis. The endoscope was then advanced through the pylorus and into the first and second portions of duodenum which appeared normal with no distal obstruction. PERCUTANEOUS GASTROSTOMY TUBE PLACEMENT: We then proceeded with the percutaneous gastrostomy tube placement of the procedure. The abdominal wall was prepped and draped in standard surgical fashion in the epigastric region. The skin, subcutaneous layer, muscle, as well as the peritoneal lining were then anesthetized using 1% lidocaine. The needle was visualized going through the mucosa of the stomach as well. The light was also illuminating from the endoscope. A transverse skin incision was made using 11 blade. The catheter and introducer needle were then placed under direct visualization into the stomach. The guidewire was then placed through the catheter and looped through the endoscope and pulled through the mouth. The gastrostomy tube was placed on the wire and pulled through until the rubber bolster was firmly abutting the anterior stomach wall with visualization of good hemostasis. The skin exit site was then covered with bacitracin ointment followed by 2 x 2 drain sponge, followed by the anterior rubber bolster. The rubber stop was then placed on the end. The endoscope was then withdrawn while suctioning of residual air. The patient tolerated the procedure well. The gastrostomy tube may be accessed and used at any time. Job ID: [id number] Dictated Date: 06/23/2016 14:27:37 Primary Care Nurse Date: 06/26/2016 07:55:40 / carolyn
[2016-06-26] MEDS: HALOPERIDOL 5 MG/ML (HALDOL) AMP IV SCH ×2 (08:53→20:56)
[2016-06-26] MEDS: lisINopril 10 MG (PRINIVIL) TAB PO SCH (08:53)
[2016-06-26] MEDS: PANTOPRAZOLE 40 MG/10 ML (PROTONIX) VIAL IV SCH ×2 (08:53→20:51)
[2016-06-26] MEDS: GABAPENTIN 600 MG (NEURONTIN) TAB PO SCH ×3 (08:53→20:51)
[2016-06-26] MEDS: THIAMINE 100 MG/ML 2 ML (VITAMIN B-1) VIAL IV SCH (08:53)
[2016-06-26] MEDS: amLODIPine 5 MG (NORVASC) TAB PO SCH (08:54)
--- NOTE | 2016-06-26 10:26 | Physical Therapy Daily Note ---
PT Daily Note-Current Subjective Patient is up in recliner and agrees to PT. Pain Numeric Pain Scale: 0-No Pain Location: No Pain Reported Mental Status Patient Orientation: Person, Time, Situation Attachments: IV Transfers Functional Early Measure 0=Not Assessed/NA 4=Minimal Assistance 1=Total Assistance 5=Supervision or Setup 2=Maximal Assistance 6=Modified Early 3=Moderate Assistance 7=Complete IndependenceIRFPAI Quality Coding Scale 6 Independent with activity with or without an assistive device 5 Patient requires set up or clean up by helper. Patient completes activity by themselves 4 Supervision or touching assist (CGA). [place] provide cues , steadying assist 3 The helper provides less than half the effort to complete the activity 2 The helper provides more than half the effort to complete the activity 1 Dependent. The helper does all the effort to complete an activity 7 Patient refused to complete or attempt activity 9 The patient did not perform the activity before the current illness or injury 88 Not attempted due to Medical conditions or safety concerns Transfers (B, C, W/C) (FIM): 2 Scootin Sit to/from Stand: 2 Sit to Stand (QC): 2 Gait Training Does the Patient Walk?: Yes Gait (FIM): 3 Distance (FIM): 3=150 ft Distance: 150' Walk 150 ft (QC): 3 Gait Level of Assist: 3 Gait Persons Needed: 1 Gait Assistive Device: FWW close mod assist with gait belt in place with SBA of 1 as well for safety; functional gait sequence with 2 episodes of LOB to right with self correct. Exercises Seated Therapy Exercises: Ankle pumps, Long arc quads, Hip flexion Seated Reps: 15 Assessment From a PT standpoint, patient is progressing with treatment and would benefit from continued therapies in ARU. Dr. Shrestha notified, as well as the SW and therapy supervisor bottle house cleaners on recommendation. PT to increase activity as tolerated by patient. PT Short Term Goals Short Term Goals Time Frame: Jul 01, 2016 Transfers (B,C,W/C) (FIM): 4 Gait (FIM): 5 Distance (FIM): 8=313-15 ft Gait Distance Comment: 50 feet Gait Level of Assist: 5 Gait Assistive Device: FWW PT Jail Goals [place] Automatic Goals PT Jail Goals Time Frame: Jul 08, 2016 Transfers (B,C,W/C) (FIM): 6 Sit to Lying (QC): 6 Lying-Sitting on Side/Bed(QC): 6 Sit to Stand (QC): 6 Rollin Chair/Whz-bo-Ajmsu Xfer(QC): 6 Does the Patient Walk: No and Walking Goal IS indicated Gait (FIM): 6 Gait distance (FIM): 3=150 ft Distance: 150 feet Walk 50ft with 2 Turns (QC): 6 Walk 150 ft (QC): 6 Gait Level of Assist: 6 Gait Assistive Device: FWW Does the Pt use WC or Scooter?: No PT Plan Treatment/Plan Treatment Plan: Continue Plan of Care Treatment Plan: Bed Mobility, Education, Functional Activity Imani, Functional Strength, Gait, Safety, Therapeutic Exercise, Transfers Visits Per Week: 11 Minutes/Day (M-F): 30 Minutes/Day (Sat/[place]): 15 Time/GCodes Time In: 916 Time Out: 936 Total Billed Treatment Time: 23 Total Billed Treatment 1 visit EX 8 min GT 15 min REMIGIO NDIAYE PT Jun 26, 2016 10:25
[2016-06-26 10:44] LABS: BASOPHILS # (AUTO) 0.1 10^3/uL (0.0-0.1); BASOPHILS % (AUTO) 1 % (0-10); EOSINOPHILS # (AUTO) 0.2 10^3/uL (0.0-0.3); EOSINOPHILS % (AUTO) 3 % (0-10); LYMPHOCYTES # (AUTO) 2.1 X 10^3 (1.0-4.0); LYMPHOCYTES % (AUTO) 21 % (12-44); MEAN CORPUSCULAR HEMOGLOBIN 29 PG (25-34); MEAN CORPUSCULAR HGB CONC 33 G/DL (32-36); MEAN CORPUSCULAR VOLUME 87 FL (80-99); MEAN PLATELET VOLUME 10.7 FL (7.4-10.4); MONOCYTES # (AUTO) 1.3 X 10^3 (0.0-1.0); MONOCYTES % (AUTO) 14 % (0-12); NEUTROPHILS % (AUTO) 62 % (42-75); PLATELET COUNT 315 10^3/uL (130-400); RED BLOOD COUNT 4.36 10^6/uL (4.35-5.85); WHITE BLOOD COUNT 9.7 10^3/uL (4.3-11.0)
[2016-06-26] MEDS: 1/2 NS IV SOLUTION 1,000 ML IV SCH ×2 (10:50→23:55)
[2016-06-26 11:02] LABS: ALANINE AMINOTRANSFERASE 17 U/L (0-55); ALBUMIN 3.1 G/DL (3.2-4.5); ANION GAP 8 MMOL/L (5-14); ASPARTATE AMINO TRANSFERASE 17 U/L (5-34); BILIRUBIN,TOTAL 0.5 MG/DL (0.1-1.0); BLOOD UREA NITROGEN 13 MG/DL (7-18); BUN/CREATININE RATIO 13; CALCIUM 8.6 MG/DL (8.5-10.1); CARBON DIOXIDE 31 MMOL/L (21-32); CHLORIDE 110 MMOL/L (98-107); CREATININE SERUM 1.01 MG/DL (0.60-1.30); GFR ESTIMATED > 60; GLUCOSE 190 MG/DL (70-105); POTASSIUM 2.9 MMOL/L (3.6-5.0); SODIUM 149 MMOL/L (135-145); TOTAL PROTEIN 5.9 G/DL (6.4-8.2)
[2016-06-26] MEDS: ADVAIR HFA 115/21 MCG INHALER 8 GM IH SCH ×2 (11:08→20:44)
--- NOTE | 2016-06-26 11:21 | Progress Note-Hospitalist ---
Progress Note Progress Notes/Assess & Plan Date Seen 06/26/16 Diagonsis/Assessment & Plan Chart Review: No fever, Vitals stable PT Review: Pt is doing much better. Pt may be DC tomorrow. Pt states he would like to go back to [facility]. Patient Interview: Pt states he is doing well currently. Pt states his back feels fine. Pt denies pain. Physical exam was stable. Pt states he has no needs currently. SW Review: Who is the doctor in [place] that helped him last time? Scribed by Ricardo Martinez under the direct supervision of Dr. Shrestha. No fever, vital signs stable, pleasant, mildly lethargic Regular rate and rhythm, clear to auscultation bilaterally Shingles dried vesicles noted Assessment: Altered mental status and hypotension with history of similar event back in 2014 related to acute renal failure and overmedication requiring ICU admit with intubation even though ARF resolved and labs are stable now extubated. MRI negative and LP negative now extubated and only slight improved delirium status but now on tx for sepsis due to pneumonia and could have aspirated water so required PEG tube on Sunday and progressing well now and may need IRF tomorrow DM HTN Leukocytosis Plan: Inpatient rehabilitation possible tomorrow Acyclovir Completed Zosyn for pneumonia and sepsis Monitor closely ANGÉLICA SHRESTHA DO Jun 26, 2016 11:21
--- NOTE | 2016-06-26 11:25 | Occupational Ther Daily Note ---
OT Current Status-Daily Note Subjective No pain reported. Pt. states that he does not remember how he got here. Appearance Pt. is up in chair when OT comes into room. Agrees to treatment. Mental Status/Objective Patient Orientation: Person, Place Functional [place] Measure 0=Not Assessed/NA 4=Minimal Assistance 1=Total Assistance 5=Supervision or Setup 2=Maximal Assistance 6=Modified [place] 3=Moderate Assistance 7=Complete [place] Pt. is able to state where he is from. Does state that he is unable to remember what happened to him, or why he is here in hospital. ADL-Treatment Functional [place] Measure 0=Not Assessed/NA 4=Minimal Assistance 1=Total Assistance 5=Supervision or Setup 2=Maximal Assistance 6=Modified [place] 3=Moderate Assistance 7=Complete IndependenceIRFPAI Quality Coding Scale 6 Independent with activity with or without an assistive device 5 Patient requires set up or clean up by helper. Patient completes activity by themselves 4 Supervision or touching assist (CGA). [place] provide cues , steadying assist 3 The helper provides less than half the effort to complete the activity 2 The helper provides more than half the effort to complete the activity 1 Dependent. The helper does all the effort to complete an activity 7 Patient refused to complete or attempt activity 9 The patient did not perform the activity before the current illness or injury 88 Not attempted due to Medical conditions or safety concerns Lower Body Dressing (FIM): 5 (Pt. is able to don socks with SBA and increased time needed. No street clothing available.) Pt. agrees to don socks. Required increased time for this. Pt. is able to flex bilateral shoulders to approximately 90 degrees. Note weakness still in bilateral UE. Completed 2 bilateral UE exercises x 15 reps x 2 exercises with red theraband. Also tolerated 20 bilateral hand squeezes with hand sponge to increase fine motor strength. Pt. is educated to complete these exercises on his own to increase overall strength and mobility with daily tasks. Pt. verbalizes understanding. Education OT Patient Education: Correct positioning, Exercise program, Modified ADL techniques, Progress toward Goal/Update tx plan, Purpose of tx/functional activities, Reviewed precautions, Rehab process, Transfer techniques Teaching Recipient: Patient Teaching Methods: Demonstration, Discussion Response to Teaching: Verbalize Understanding, Return Demonstration OT Short Term Goals Short Term Goals Time Frame: Jul 08, 2016 Grooming(FIM): 4 Bathing(FIM): 4 Upper Body Dressing(FIM): 4 Lower Body Dressing(FIM): 3 Toileting(FIM): 3 Transfers (B,C,W/C) (FIM): 4 Toilet/Commode Transfer(FIM): 4 Shower Transfer(FIM): 4 Additional Short Term Goals: 2-Verbalize Understanding, 3-ImproveStrength/Imani 1=Demonstrate adherence to instructed precautions during ADL tasks. 2=Patient will verbalize/demonstrate understanding of assistive devices/ modifications for ADL. 3=Patient will improve strength/tolerance for activity to enable patient to perform ADL's. OT [facility] Goals Timber Harvester Operator Goals Time Frame: Jul 22, 2016 Eating (FIM): 6 Eating (QC): 6 Groomin Oral Hygiene (QC): 6 Bathing(FIM): 5 Upper Body Dressing(FIM): 5 Lower Body Dressing(FIM): 5 Toileting(FIM): 5 Toileting Hygiene (QC): 5 Toilet/Commode Transfer(FIM): 5 Toilet/Commode Transfer (QC): 5 Shower Transfer(FIM): 5 Additional Goals: 2-Verbalize Understanding, 3-ImproveStrength/Imani 1=Demonstrate adherence to instructed precautions during ADL tasks. 2=Patient will verbalize/demonstrate understanding of assistive devices/ modifications for ADL. 3=Patient will improve strength/tolerance for activity to enable patient to perform ADL's. OT Education/Plan Problem List/Assessment Assessment: Decreased Activ Tolerance, Decreased UE Strength, Dependent Transfers, Impaired Bed Mobility, Impaired Cognition, Impaired Funct Balance, Impaired I ADL's, Impaired Self-Care Skills, Restricted Funct UE ROM Pt would benefit from skilled OT to increase his independence in basic self care to allow him to move to least restrictive environment and decrease caregiver burden. Discharge Recommendations Plan/Recommendations: Continue POC Therapy D/C Recommendations: 24 hr Supervision Comment Unsure of equipment needs at this time. Target Placement Pt. may benefit from rehab placement. Pt. is more cognitively clear this date, and able to participate and follow cues. Treatment Plan/Plan of Care Treatment,Training & Education: Yes Patient would benefit from OT for education, treatment and training to promote independence in ADL's, mobility, safety and/or upper extremity function for ADL' s. Plan of Care: ADL Retraining, Functional Mobility, UE Funct Exercise/Act, UE Neuromus Re-Ed/Coord Treatment Duration: Jul 22, 2016 Visits Per Week: 5 Agreement: Yes Rehab Potential: Fair Time/GCodes Start Time: 08:40 Stop Time: 09:00 Total Time Billed (hr/min): 20 Billed Treatment Time 1, EX GERARD WHITLEY OT Jun 26, 2016 11:25
--- NOTE | 2016-06-26 11:50 | Diagnostic Imaging Report ---
Modified swallow. INDICATION: Dysphagia. This study was performed in the presence of speech pathologistJessica. The recent modified swallow exam performed on 06/22/2016, could not be completed as patient could not fully cooperate. On this exam the patient was given barium-impregnated substances to swallow including honey, applesauce, and banana. He was able to swallow the substances without difficulty. There was transient penetration with the honey-consistency barium. There is no other aspiration or penetration, but the patient did exhibit poor clearing of the vallecula and the pyriform sinuses. IMPRESSION: There is transient penetration with the honey-consistency barium. Dictated by: Dictated on workstation # [id number]
--- NOTE | 2016-06-26 13:01 | ST Mod Barium Swallow ---
Speech Evaluation-General Medical Diagnosis AMS, ARF Onset Date: Jun 12, 2016 Therapy Diagnosis Therapy Diagnosis: Moderate Oropharyngeal Dysphagia Precautions Precautions/Isolations: Contact Isolation, Aspiration, Fall Prevention Referral Referring Physician: Dr. Lisa Shrestha Reason for Referral: Evaluation/Treatment Modified Barium Swallow Evaluation Medical History Pertinent Medical History: Arthritis, DM, HTN Reviewed History: Yes Speech Mod Barium Swallow Prior Level of Function The patient is currently NPO pending the results of the dysphagia evaluation. The patient's cognition and alertness level has waxed and weaned throughout the previous week. Due to the patient's fluctuating cognition, information regarding prior level of function has not been obtained. Prior to the swallowing evaluation, the patient stated he was on "some thick water stuff in [place]" before he was hospitalized. The patient was unable to state why he was receiving thickened liquids at the outside facility. Oral Motor Skills Dentition Natural Dentures: Full (Poor condition, missing dentition) Lingual Protrusion: Normal Lingual ROM: Normal Lingual Strength: Normal Velum: Normal Volitional Dry Swallow: Yes Voluntary Cough: Yes Can Clear Throat Volitionally: Yes Textures-Lateral View Lateral View Food Presentation: Honey Liquid via Spoon, Honey Liquid via Cup, Pureed Solids, Mechanial Soft Solids Oral Phase Labial Closure: No Impairment (WFL) Bolus Formation Pooling L/R: Mild Impairment (The patient demonstrated difficulty containing liquid bolus on lingual surface, with spilage noted to the buccal cavities (bilaterally).) Bolus Formation Placement: No Impairment (WFL) Mastication Rotary Chew: Mild Impairment (The patient demonstrated a mashing movement during mastication, demonstrating reduced coordination.) A/P Lingual Propulsion: Mild Impairment Lingual Movement: No Impairment (WFL) Oral Phase Residue: Mild Impairment Pharyngeal Phase Swallow Response: Moderate Impairment (All bolus material reached the level of the pyriform sinuses prior to swallow initiation.) Base of Tongue: Moderate Impairment Epiglottic Movement: Mild Impairment (Adequate tilt with limited inversion noted.) Laryngeal Elevation: Moderate Impairment Vallecular Residue: Moderate (With all consistencies tested.) Pharyngeal Wall Residue: Moderate (With all consistencies tested.) Piriform Sinus Residue: Moderate (With all consistencies tested.) Laryngeal Penetration: Mild (With honey-thick liquid.) Aspiration Observations: None Other Pharyngeal Observations: A moderately delayed pharyngeal onset of swallow was noted with all consistencies tested, as material reached the pyriform sinuses prior to trigger of the swallow. Mild laryngeal penetration was noted with honey-thick liquid consistencies during the swallow. A cued cough was efficient at clearing the penetrated material from the laryngeal vestibule following the swallow. Marked pyriform sinus and vallecular residue was noted with all consistencies tested. A cued second (dry) swallow was efficient at reducing the residual material visualized. Esophageal Phase Peristalsis: WFL Performed-A/P View Not Applicable/Performed Summary/Impressions Oral Phase Impression: Moderate Impairment Moderate oropharyngeal dysphagia was noted with consistent mild laryngeal penetration of honey-thick liquids during the swallow and moderate pharyngeal, pyriform sinus, and vallecular residue. The patient appears to have reduced pharyngeal and laryngeal sensation in the presence of bolus material. A cued throat clear was efficient at clearing the penetrated material from the laryngeal vestibule post swallow. The patient demonstrated moderately reduced base of tongue retraction, moderately reduced pharyngeal contractions, and moderately decreased laryngeal elevation. Recommendations: 1. Puree consistency diet with honey-thick liquids, as tolerated. 2. Swallow, throat clear, swallow with honey-thick liquids (discussed and demonstrated to patient). 3. No straws. 4. Small bites and sips. 5. Upright and alert for all PO intake. 6. Crush medication and place in puree for administration. 7. Initiate dysphagia strengthening exercises. Speech Short Term Goals Short Term Goals Short Term Goals 1. The patient will demonstrate swallowing strategies with 80% accuracy and mild clinician verbal prompting. 2. The patient will demonstrate laryngeal elevation, pharyngeal contraction, and base of tongue retraction exercises with 80% accuracy and mild clinician cueing. Time Frame-STG: One Week Speech Applications Specialist Goals Mcfp Goals 1. The patient will tolerate the least restrictive diet without signs/symptoms of aspiration or laryngeal penetration. Time Frame: Three Weeks Speech-Plan Treatment Plan Speech Therapy Treatment Plan: Continue Plan of Care Continue skilled speech pathology to target improved swallowing safety with the least restrictive diet. Treatment Duration: Jul 17, 2016 # of days/week One to Three Visits Per Week: One to Three Minutes/Day (M-F): 15 Rehab Potential: Guarded Safety Risks/Education Teaching Recipient: Patient Teaching Methods: Discussion Response to Teaching: Verbalize Understanding, Reinforcement Needed Education Topics Provided: Results, Recommendations, Swallowing Strategies Time Speech Therapy Time In: 11:00 Speech Therapy Time Out: 11:20 Total Billed Time: 20 Billed Treatment Time 1, CHRISTIANO IBARRA Jun 26, 2016 13:01
--- NOTE | 2016-06-26 14:27 | Physical Therapy Daily Note ---
PT Daily Note-Current Subjective Patient is very agreeable to participate with PT. No c/o at this time. Pain Numeric Pain Scale: 0-No Pain Location: No Pain Reported Mental Status Patient Orientation: Normal For Age Attachments: IV Transfers Functional [place] Measure 0=Not Assessed/NA 4=Minimal Assistance 1=Total Assistance 5=Supervision or Setup 2=Maximal Assistance 6=Modified [place] 3=Moderate Assistance 7=Complete IndependenceIRFPAI Quality Coding Scale 6 Independent with activity with or without an assistive device 5 Patient requires set up or clean up by helper. Patient completes activity by themselves 4 Supervision or touching assist (CGA). [place] provide cues , steadying assist 3 The helper provides less than half the effort to complete the activity 2 The helper provides more than half the effort to complete the activity 1 Dependent. The helper does all the effort to complete an activity 7 Patient refused to complete or attempt activity 9 The patient did not perform the activity before the current illness or injury 88 Not attempted due to Medical conditions or safety concerns Transfers (B, C, W/C) (FIM): 4 Scootin Sit to/from Stand: 4 Sit to Stand (QC): 4 Gait Training Does the Patient Walk?: Yes Gait (FIM): 4 Distance (FIM): 3=150 ft Distance: 275' Walk 50 ft with 2 Turns(QC): 4 Walk 150 ft (QC): 4 Gait Level of Assist: 4 Gait Persons Needed: 1 Gait Assistive Device: FWW Patient improving with gait sequence and balance with ambulation. Patient demonstrates very slow, steady gait sequence with multiple standing recovery periods due to fatigue. Assessment Patient is improving with treatment and will continue to benefit from skilled PT. PT to increase activity as tolerated by patient. PT Short Term Goals Short Term Goals Time Frame: Jul 01, 2016 Transfers (B,C,W/C) (FIM): 4 Gait (FIM): 5 Distance (FIM): 2=140-92 ft Gait Distance Comment: 50 feet Gait Level of Assist: 5 Gait Assistive Device: FWW PT Cook Specialty Goals Cook Specialty Goals PT Long-Term Goals Time Frame: Jul 08, 2016 Transfers (B,C,W/C) (FIM): 6 Sit to Lying (QC): 6 Lying-Sitting on Side/Bed(QC): 6 Sit to Stand (QC): 6 Rollin Chair/Gxc-al-Csllb Xfer(QC): 6 Does the Patient Walk: No and Walking Goal IS indicated Gait (FIM): 6 Gait distance (FIM): 3=150 ft Distance: 150 feet Walk 50ft with 2 Turns (QC): 6 Walk 150 ft (QC): 6 Gait Level of Assist: 6 Gait Assistive Device: FWW Does the Pt use WC or Scooter?: No PT Plan Treatment/Plan Treatment Plan: Continue Plan of Care Treatment Plan: Bed Mobility, Education, Functional Activity Imani, Functional Strength, Gait, Safety, Therapeutic Exercise, Transfers Visits Per Week: 11 Minutes/Day (M-F): 30 Minutes/Day (Sat/[place]): 15 Time/GCodes Time In: 1350 Time Out: 1413 Total Billed Treatment Time: 23 Total Billed Treatment 1 visit GT x 2 23 min G Codes Necessary: No REMIGIO NDIAYE PT Jun 26, 2016 14:27
[2016-06-26 18:16] VITALS: BP 136/85
[2016-06-27] MEDS: ACYCLOVIR INJECTION 500 MG in NS (IVPB) 100 ML IV SCH (06:07)
[2016-06-27] MEDS: inSUlin (REGULAR) HUMAN 1 UNIT/0.01 ML (CHARGE PER UNIT) SC SCH ×2 (06:08)
[2016-06-27 06:39] VITALS: BP 137/54
[2016-06-27] MEDS: ADVAIR HFA 115/21 MCG INHALER 8 GM IH SCH (07:47)
[2016-06-27] MEDS: THIAMINE 100 MG/ML 2 ML (VITAMIN B-1) VIAL IV SCH (09:00)
[2016-06-27] MEDS: HALOPERIDOL 5 MG/ML (HALDOL) AMP IV SCH (09:00)
[2016-06-27] MEDS ORDERED: INSU100V3 SC (09:13)
[2016-06-27] MEDS ORDERED: IPRA3AMP INH (09:13)
[2016-06-27] MEDS ORDERED: LISI10TA2 PO (09:13)
[2016-06-27] MEDS ORDERED: AMLO5TAB2 PO (09:13)
[2016-06-27] MEDS ORDERED: FLUT12AE4 IH (09:13)
[2016-06-27] MEDS: 1/2 NS IV SOLUTION 1,000 ML IV SCH (09:41)
[2016-06-27] MEDS: amLODIPine 5 MG (NORVASC) TAB PO SCH (09:42)
[2016-06-27] MEDS: lisINopril 10 MG (PRINIVIL) TAB PO SCH (09:42)
[2016-06-27] MEDS: PANTOPRAZOLE 40 MG/10 ML (PROTONIX) VIAL IV SCH (09:42)
[2016-06-27] MEDS: GABAPENTIN 600 MG (NEURONTIN) TAB PO SCH (09:42)
--- NOTE | 2016-06-27 10:49 | Discharge Summary-Hospitalist ---
Diagnosis/Chief Complaint Date of Admission Jun 23, 2016 at 12:38 Date of Discharge Discharge Date: Jun 27, 2016 Discharge Diagnosis Assessment: Altered mental status and hypotension with history of similar event back in 2014 related to acute renal failure and overmedication requiring ICU admit with intubation even though ARF resolved and labs are stable now extubated. MRI negative and LP negative now extubated and only slight improved delirium status but now on tx for sepsis due to pneumonia and could have aspirated water so required PEG tube on Sunday and progressing well now and tx to IRF today DM HTN Leukocytosis Plan: Inpatient rehabilitation possible tomorrow Acyclovir Completed Zosyn for pneumonia and sepsis Monitor closely Reason Hospital Visit/Course appliance counselor: Pt is doing well. Pt is taking oral. Pt has PEG tube but is not using it. Pt is on puree diet. Shingles is dried up so will DC isolation. Pt has not required pain meds. PT Review: Pt will go to rehab today. No fever, vital signs stable, pleasant, flat affect, lying on right side Regular rate and rhythm, clear to auscultation bilaterally Right back shingles dried vesicles resolving Plan: DC isolation Scribed by Ricardo Martinez under the direct supervision of Dr. Shrestha. Hospital course: Patient had a brief swing bed hospital course to complete IV antibiotics and to maintain speech therapy due to PEG tube required since dysphagia screen showed aspiration. Overall he did well much improved and shingles was diagnosed placed on IV acyclovir with good resolution. Overall he improved enough to be able to go to inpatient rehabilitation and will evaluate periodically from a medical management standpoint but he did complete antibiotics for aspiration pneumonia with Zosyn and he is currently on a sliding scale until oral intake is sufficient. Overall he was doing well and was stable enough for transfer. Discharge Summary Discharge Physical Examination Allergies: Coded Allergies: No Known Drug Allergies (Unverified , 12/09/14) Vitals & I&Os Vital Signs Date Time Temp Pulse Resp B/P (MAP) Pulse Ox O2 Delivery O2 Flow Rate FiO2 06/27/16 06:39 97.3 94 16 137/54 93 Room Air 06/26/16 09:00 1.00 06/23/16 19:41 96 Hospital Course Labs (last 24 hrs) Laboratory Tests 06/26/16 11:45: Glucometer 174H 06/26/16 12:11: Glucometer 183H 06/26/16 23:58: Glucometer 304H 06/27/16 05:42: Glucometer 144H Pending Labs Laboratory Tests 06/27/16 05:42: Glucometer 144 Discharge Home Medications: Active Scripts Active Humulin R (Insulin Regular, Human) 1,000 Units/10 Ml Soln 0 Unit SC ACHS 30 Days Advair Hfa 115-21 Mcg Inhaler (Fluticasone/Salmeterol) 12 Gm Hfa.aer.ad 0 Puff IH BID@08,20 30 Days Lisinopril 10 Mg Tablet 10 Mg PO DAILY 30 Days Amlodipine Besylate 5 Mg Tablet 10 Mg PO DAILY 30 Days Iprat-Albut 0.5-3(2.5) mg/3 ml (Ipratropium/Albuterol Sulfate) 3 Ml Ampul.neb 3 Ml INH RTQID 30 Days Reported Gabapentin 600 Mg Tablet 600 Mg PO TID Oxycodone-Acetaminophen 5-325 (Oxycodone HCl/Acetaminophen) 1 Each Tablet 1 Tab PO TID PRN Instructions to patient/family Please see electonic discharge instructions given to patient. ANGÉLICA SHRESTHA DO Jun 27, 2016 10:49
[2016-06-27] MEDS ORDERED: inSUlin (REGULAR) HUMAN 1 UNIT/0.01 ML (CHARGE PER UNIT) SC SCH (11:00)
--- NOTE | 2016-07-05 13:11 | CONSULTATION REPORT ---
DATE OF CONSULTATION: ADMITTING PHYSICIAN: Dr. Shrestha. Mr. Michael Ling is a 60-year-old male who presented with multiple medical problems. He came in with altered mental status, as well as acute renal failure. He also appeared to have been overmedicated and hypotensive. During that time he showed signs of sepsis requiring ICU admission and intubation. Since that time, he has been extubated and his renal status has improved as well. He was then transferred to the general medical floor however, continued to have severe delirium and confusion. He had a similar episode similar to this in 2015. This may be related to drug related overdose. During his hospital course his delirium and confusion did interfere with normal functioning. Speech pathology had been was also consulted and he was not able drink liquids or eats solids and was a severe aspiration risk. On 06/23/2016 he underwent placement of a percutaneous gastrostomy tube for enteral alimentation as well as medications. During the continued process of his hospital admission he did continue to improve and was eventually transferred to inpatient rehabilitation. He continued to do well and became awake and alert and was able to tolerate liquids and solids without any difficulty. The gastrostomy tube was not used. Gastrostomy tube also healed well with no drainage. PAST MEDICAL HISTORY: 1. Altered mental status. 2. Acute renal failure. 3. Diabetes. 4. Hypertension. 5. Dysphagia. PAST SURGERIES: 1. Right shoulder surgery. 2. Right ankle surgery. 3. Penile implant with artificial testicle placement. ALLERGIES: No known drug allergies. MEDICATIONS: 1. Albuterol breathing treatments q.i.d. 2. Amlodipine 5 mg daily. 3. Budesonide 2 puffs b.i.d. 4. Cyclobenzaprine 10 mg daily. 5. Diazepam 2 mg q.8 h. 6. Fluticasone spray 2 sprays daily. 7. Gabapentin 600 mg t.i.d. 8. Insulin 30 units t.i.d. 9. Levemir insulin 30 units b.i.d. 10. Meclizine 12.5 mg q.i.d. 11. Morphine 60 mg q.12. 12. Oxycodone p.r.n. 13. VESIcare 5 mg daily. SOCIAL HISTORY: Previous smoke, unknown alcohol. FAMILY HISTORY: Mother and sister diabetes and father stroke. VITAL SIGNS: Stable, afebrile. REVIEW OF SYSTEMS: This a well-nourished male, currently in no acute distress, and who is awake, alert and does answer all questions appropriately. He is tolerating a regular diet including solids without any dysphagia, as well as no cough or regurgitation. He has not had to use his gastrostomy tube and the gastrostomy tube was sealed well with no surrounding redness, erythema and no drainage as well. He is also states he is having bowel movements. No fever, chills, no recent inadvertent weight loss. PHYSICAL EXAMINATION: CHEST: Good breath sounds bilaterally. HEART: Regular. EXTREMITIES: No lower extremity edema. Negative Homans sign. HEENT: No scleral icterus. No cervical lymphadenopathy. ABDOMEN: Abdomen is soft, nontender and nondistended with a well-healed gastrostomy tube. ASSESSMENT AND PLAN: 1. 60-year-old male with acute renal failure. 2. Diabetes. 3. Drug intoxication with severe mental status changes resultant dysphagia. 4. During this admission he has had a gastrostomy tube placement. However, has improved over time and it is now able to take in adequate amounts of liquids and solids orally without any difficulty as well as no apparent risk for aspiration. 5. The patient is adamant about having the tube removed. The tube appears to be well healed with no surrounding redness or erythema and is scheduled to be discharged home. We will remove the gastrostomy tube. The abdomen was cleaned using chlorhexidine. The skin was then anesthetized using 1% lidocaine. The pressure was exerted on the abdominal wall and the gastrostomy tube quickly removed. A small amount of gastric contents did go through the opening consistent with a healed fistulous tract. With gentle pressure this did stop. Good hemostasis was also observed. The wound was then cleaned and covered with gauze, followed by tape. The patient tolerated the procedure well. We will start clear liquids for the next 24 hours and slowly advance as tolerated. Job ID: [id number] Dictated Date: 07/05/2016 11:35:51 Personal Finance Instructor Date: 07/05/2016 12:57:31/wally
--- OUTSIDE RECORDS SUMMARY | 2016-07-16 08:18 | XMS REPORT ---
Author FRANCISCA Clark [facility] eClinicalWorks Address Unknown Phone Unavailable Care Team Providers Care Developer Programmer Name Role Phone FRANCISCA LAMAR CP Unavailable Allergies, Adverse Reactions, Alerts Substance Reaction Event Type N.K.D.A. Info Not Available Non Drug Allergy Problems Problem Type Condition ICD-9 Code Onset Dates Condition Status Problem Chronic rhinitis 472.0 Active Problem Cervicalgia 723.1 Active Problem Diabetes mellitus without mention of complication, type II or unspecified type, not stated as uncontrolled 250.00 Active Assessment Radiculopathy of leg 724.4 Active Assessment Chronic rhinitis 472.0 Active Problem Diabetes with unspecified complication, type II or unspecified type, uncontrolled 250.92 Active Problem Diabetes mellitus without mention of complication, type II or unspecified type, uncontrolled 250.02 Active Medications Medication Code System Code Instructions Start Date End Date Status Dosage Flexeril NDC 0 10 mg oral Once a day May 22, 2014 1 tablet Humalog [facility] [address]-94 100 UNIT/ML Subcutaneous 3 times a day Mar 16, 2014 inject 10-12 Units by Subcutaneous route Ventolin NDC 0 90 mcg/actuation 4 times a day Mar 16, 2014 2 puffs by Inhalation route amitriptyline [facility] [address]-49 50 mg Once a day Mar 11, 2014 1 tablet Diclofenac Sodium [facility] [address]-45 75 MG Orally 2 times a day Mar 11, 2014 1 tablet Hydrochlorothiazide [facility] [address]-77 25 MG Orally Once a day Mar 11, 2014 1 tablet Amaryl [facility] [address]-84 4 MG Orally Once a day Mar 11, 2014 1 tablet with breakfast or the first main meal of the day metoprolol NDC 0 50 mg 2 times a day Mar 11, 2014 1 tablet by Oral route Lisinopril [facility] [address]-14 20 MG Orally Once a day Mar 11, 2014 1 tablet MS Contin [facility] [address]-40 30 MG Orally every 12 hrs June 02, 2014 1 tablet Gabapentin [facility] [address]-85 600 MG Orally Three times a day Mar 24, 2014 1 tablet Percocet [facility] [address]-81 5-325 MG Orally 3 times a day June 02, 2014 1 tablet as needed metformin [facility] [address]-97 1,000 mg oral 2 times a day Mar 11, 2014 1 tablet Levemir [facility] [address]-08 100 UNIT/ML Subcutaneous 2 times a day Mar 16, 2014 25-30 units by Subcutaneous route 2 times per day Symbicort [facility] [address]-48 160-4.5 mcg/actuation Twice a day Mar 16, 2014 inhale 2 puffs by inhalation route 2 times per day in the morning and evening Diazepam [facility] [address]-25 2 MG Orally 3 times a day October 16, 2014 1 Procedures Procedure Coding System Code Date Office Visit, Est Pt., Level 3 CPT-4 33580 Nov 12, 2014 Vital Signs Date/Time: Nov 12, 2014 Temperature 97.7 F Weight 243.8 lbs Height 72 in BMI 33.06 Index Blood Pressure Diastolic 82 mmHg Blood Pressure Systolic 150 mmHg Cardiac Monitoring Heart Rate 87 bpm Results No Known Results Summary Purpose eClinicalWorks Submission
--- OUTSIDE RECORDS SUMMARY | 2016-07-16 08:22 | XMS REPORT ---
Author Author FRANCISCA LAMAR [facility] eClinicalWorks Address Unknown Phone Unavailable Care Team Providers Care Livestock Farm Workers Name Role Phone FRANCISCA LAMAR CP Unavailable Allergies No Known Allergies Problems Problem Type Condition ICD-9 Code Onset Dates Condition Status Problem Chronic rhinitis 472.0 Active Problem Cervicalgia 723.1 Active Problem Diabetes mellitus without mention of complication, type II or unspecified type, not stated as uncontrolled 250.00 Active Problem Diabetes with unspecified complication, type II or unspecified type, uncontrolled 250.92 Active Problem Diabetes mellitus without mention of complication, type II or unspecified type, uncontrolled 250.02 Active Medications Medication Code System Code Instructions Start Date End Date Status Dosage Humalog [facility] [address]-98 100 UNIT/ML Subcutaneous 3 times a day Mar 16, 2014 inject 10-12 Units by Subcutaneous route Levemir [facility] [address]-28 100 UNIT/ML Subcutaneous 2 times a day Mar 16, 2014 25-30 units by Subcutaneous route 2 times per day Loratadine [facility] [address]-16 10 MG Orally Once a day Nov 13, 2014 1 tablet Results No Known Results Summary Purpose eClinicalWorks Submission
--- OUTSIDE RECORDS SUMMARY | 2016-07-16 08:22 | XMS REPORT ---
Author Author FRANCISCA LAMAR [facility] eClinicalWorks Address Unknown Phone Unavailable Care Team Providers Care Dormitory Counselor Name Role Phone FRANCISCA LAMAR CP Unavailable [...] or unspecified type, uncontrolled 250.02 Active Medications No Known Medications Results No Known Results Summary Purpose eClinicalWorks Submission
--- OUTSIDE RECORDS SUMMARY | 2016-07-16 08:22 | XMS REPORT ---
Author FRANCISCA Clark [facility] eClinicalWorks Address Unknown Phone Unavailable Care Team Providers Care Platform Engineer Name Role Phone FRANCISCA LAMAR CP Unavailable [...] Instructions Start Date End Date Status Dosage Albuterol NDC 0 2.5 mg /3 mL (0.083 %) 4 times a day May 02, 2012 2.5 mg by Inhalation route 4 times per day Flonase NDC [address]-37 50 mcg/actuation Nasally 2 times a day Mar 11, 2014 1 spray in each nostril Ventolin NDC 0 90 mcg/actuation 4 times a day Mar 16, 2014 2 puffs by Inhalation route Results No Known Results Summary Purpose eClinicalWorks Submission
--- OUTSIDE RECORDS SUMMARY | 2016-07-16 08:22 | XMS REPORT ---
Author Author FRANCISCA LAMAR [facility] eClinicalWorks Address Unknown Phone Unavailable Care Team Providers Care Electrical Technician Instructor Name Role Phone FRANCISCA LAMAR CP Unavailable Allergies No Known Allergies Problems Problem Type Condition Code Onset Dates Condition Status Problem Chronic [...]
--- OUTSIDE RECORDS SUMMARY | 2016-07-16 08:22 | XMS REPORT ---
Author Author FRANCISCA LAMAR [facility] eClinicalWorks Address Unknown Phone Unavailable Care Team Providers Care J2Ee Programmer Name Role Phone FRANCISCA LAMAR CP [...] Instructions Start Date End Date Status Dosage Percocet [facility] [address]-84 5-325 MG Orally 3 times a day June 02, 2014 1 tablet as needed MS Contin [facility] [address]-64 30 MG Orally every 12 hrs June 02, 2014 1 tablet Results No Known Results Summary Purpose eClinicalWorks Submission
--- OUTSIDE RECORDS SUMMARY | 2016-07-16 08:22 | XMS REPORT ---
Author Author FRANCISCA LAMAR [facility] eClinicalWorks Address Unknown Phone Unavailable Care Team Providers Care Grade And Center Marker Name Role Phone FRANCISCA LAMAR CP Unavailable [...] Instructions Start Date End Date Status Dosage MS Contin [facility] [address]-91 30 MG Orally every 12 hrs June 02, 2014 1 tablet Percocet [facility] [address]-31 5-325 MG Orally 3 times a day June 02, 2014 1 tablet as needed Results No Known Results Summary Purpose eClinicalWorks Submission
--- OUTSIDE RECORDS SUMMARY | 2016-07-16 08:23 | XMS REPORT ---
Author Author FRANCISCA LAMAR [facility] eClinicalWorks Address Unknown Phone Unavailable Care Team Providers Care Histopathologist Name Role Phone FRANCISCA LAMAR CP Unavailable [...] route 4 times per day Flonase NDC [address]-91 50 mcg/actuation Nasally 2 times a day Mar 11, 2014 1 spray in each nostril Ventolin NDC 0 90 mcg/actuation 4 times a day Mar 16, 2014 2 puffs by Inhalation route Results No Known Results Summary Purpose eClinicalWorks Submission
--- OUTSIDE RECORDS SUMMARY | 2016-07-16 08:23 | XMS REPORT ---
Author Author FRANCISCA LAMAR [facility] eClinicalWorks Address Unknown Phone Unavailable Care Team Providers Care Communications Equipment Operator Name Role Phone FRANCISCA LAMAR CP Unavailable Allergies No Known Allergies Problems Problem Type Condition Code Onset Dates Condition Status Problem Chronic rhinitis 472.0 Active Problem Cervicalgia 723.1 Active Problem Diabetes mellitus without mention of complication, type II or unspecified type, not stated as uncontrolled 250.00 Active Assessment Type 2 diabetes mellitus with hyperglycemia E11.65 Active Problem Diabetes with unspecified complication, type II or unspecified type, uncontrolled 250.92 Active Problem Diabetes mellitus without mention of complication, type II or unspecified type, uncontrolled 250.02 Active Medications Medication Code System Code Instructions Start Date End Date Status Dosage Test strips NDC 0 ... contour EZ 3 times a day May 03, 2015 1 test strip Results No Known Results Summary Purpose eClinicalWorks Submission
--- OUTSIDE RECORDS SUMMARY | 2016-07-16 08:23 | XMS REPORT ---
Author Author FRANCISCA LAMAR [facility] eClinicalWorks Address Unknown Phone Unavailable Care Team Providers Care Flavorer Name Role Phone FRANCISCA LAMAR CP Unavailable [...]
--- OUTSIDE RECORDS SUMMARY | 2016-07-16 08:23 | XMS REPORT ---
Author Author FRANCISCA LAMAR [facility] eClinicalWorks Address Unknown Phone Unavailable Care Team Providers Care Supervisor Drawing Name Role Phone FRANCISCA LAMAR CP Unavailable [...] Date End Date Status Dosage MS Contin [facility] [address]-14 30 MG Orally every 12 hrs June 02, 2014 1 tablet Percocet [facility] [address]-01 5-325 MG Orally 3 times a day June 02, 2014 1 tablet as needed Results No Known Results Summary Purpose eClinicalWorks Submission
== END 2016-06-27 10:00 | DRG 178 ==
LOC: 4TH 12:38
PROVIDERS: ADMIT Internal Medicine; ATTEND Internal Medicine
PROC: 0DH64UZ Insertion of Feeding Device into Stomach, Percutaneous Endoscopic Approach (ICD-10-PCS; 2016-06-23)
PROC: 0DB68ZX Excision of Stomach, Via Natural or Artificial Opening Endoscopic, Diagnostic (ICD-10-PCS; principal; 2016-06-23 13:05)
DX: J69.0 Pneumonitis due to inhalation of food and vomit (principal); R13.10 Dysphagia, unspecified; K21.9 Gastro-esophageal reflux disease without esophagitis; K44.9 Diaphragmatic hernia without obstruction or gangrene; K29.70 Gastritis, unspecified, without bleeding; K25.9 Gastric ulcer, unspecified as acute or chronic, without hemorrhage or perforation; B02.9 Zoster without complications; E66.9 Obesity, unspecified; Z68.41 Body mass index [BMI] 40.0-44.9, adult; R41.0 Disorientation, unspecified; I10 Essential (primary) hypertension; E11.9 Type 2 diabetes mellitus without complications; J44.9 Chronic obstructive pulmonary disease, unspecified; M19.91 Primary osteoarthritis, unspecified site; Z99.81 Dependence on supplemental oxygen; Z87.891 Personal history of nicotine dependence; Z79.4 Long term (current) use of insulin
CPT/HCPCS: 36415; 74230; 80053; 82962; 85025; 88305; 94640; 94760

== ENCOUNTER 2016-06-27 10:25 | Inpatient (IN) | payer MEDICARE, MEDICAID ==
[~2016-06-27] VITALS: Ht 170.2 cm; Wt 109.0 kg
[~2016-06-27 10:25] MED LIST changes: +FLUT12AE4 IH; +INSU100V3 SC; +IPRA3AMP INH
--- NOTE | 2016-06-27 11:16 | Physical Therapy Evaluation ---
PT Evaluation-General Medical Diagnosis Admission Date Jun 27, 2016 at 10:25 Medical Diagnosis: acute renal failure Onset Date: Jun 23, 2016 Therapy Diagnosis Therapy Diagnosis: impaired mobility, strength, endurance Height/Weight Height (Feet): 5 Height (Inches): 7.00 Weight (Pounds): 240 Weight (Ounces): 6.0 Referral Physician: Tj Reason for Referral: Evaluation/Treatment Medical History Pertinent Medical History: Arthritis, DM, HTN Social History Home: Single Level Current Living Status: Spouse Entry Into Home: Ramp Prior/Core FIM Prior Level of Function Functional [place] Measure 0=Not Assessed/NA 4=Minimal Assistance 1=Total Assistance 5=Supervision or Setup 2=Maximal Assistance 6=Modified [place] 3=Moderate Assistance 7=Complete [place] Bed Mobility: 6 Transfers (B,C,W/C) (FIM): 6 Gait: 6 Patient states that he does use a rolling walker at home. PT Evaluation-Current Subjective Patient sitting EOB pre tx on the medical floor, will be transporting him to the rehab floor. Patient has no complaints of pain but he states he does have a lot of discomfort due to his feeding tube. Patient does not have any clothes to put on here. Pt/Family Goals "to get home as soon as possible" Objective Patient Orientation: Person, Place, Situation Attachments: PEG Tube, IV ROM/Strength ROM Lower Extremities WNL Strenght Lower Extremities 4-/5 gross bilateral lower extremities Integumentary/Posture Bowel Incontinence: No Bladder Incontinence: No Neuromuscular (Tone, Coordination, Reflexes) WNL Sensory Vision: Functional Hearing: Functional Sensation Right Lower Extremit: Impaired Sensation Left Lower Extremity: Impaired Sensation Lower Extremities Patient has intact light touch sensation in his legs but not in either foot. Transfers Functional [place] Measure 0=Not Assessed/NA 4=Minimal Assistance 1=Total Assistance 5=Supervision or Setup 2=Maximal Assistance 6=Modified [place] 3=Moderate Assistance 7=Complete IndependenceIRFPAI Quality Coding Scale 6 Independent with activity with or without an assistive device 5 Patient requires set up or clean up by helper. Patient completes activity by themselves 4 Supervision or touching assist (CGA). [place] provide cues , steadying assist 3 The helper provides less than half the effort to complete the activity 2 The helper provides more than half the effort to complete the activity 1 Dependent. The helper does all the effort to complete an activity 7 Patient refused to complete or attempt activity 9 The patient did not perform the activity before the current illness or injury 88 Not attempted due to Medical conditions or safety concerns Transfers (B, C, W/C) (FIM): 4 Scootin Rollin Roll Left to Right (QC): 4 Supine to/from Sit: 4 Sit to/from Stand: 4 Sit to Lying (QC): 4 Lying to Sitting/Side of Bed(Q: 4 Sit to Stand (QC): 4 Car Transfer (QC): 88 CGA with transfers, SBA with bed mobility, cues for safety and hand placement Gait Does the Patient Walk?: Yes Mode of Locomotion: Walk Anticipated Mode of Locomotion: Walk Gait (FIM): 4 Walk 10 feet (QC): 4 Walk 50 ft with 2 Turns(QC): 4 Walk 150 ft (QC): 4 Walking 10ft/uneven surface-QC: 4 Distance: 300', 150' Gait Level of Assist: 4 Gait Persons Needed: 1 Gait Assistive Device: FWW Comments/Gait Description Patient can ambulate 300' with a rolling walker with CGA, including 50' with at least 2 turns of 90 degrees and 10' over an uneven surfaces. Wheelchair Training Does the Pt Use a Wheelchair?: No Stairs Stairs (FIM): 2 #of Steps: 8 Level of Assist: 4 1 Step (curb) (QC): 4 4 Steps (QC): 4 12 Steps (QC): 88 Patient can go up and down 8 steps using 2 handrails with CGA, he was pretty unsteady going down the steps but did not need any assist other than CGA Balance Sitting Static: Normal Sitting Dynamic: Normal Standing Static: Fair Standing Dynamic: Fair Picking up an Object (QC): 88 Treatment NuStep 15 min level 4 Assessment/Needs Patient has impairments in strength, endurance, balance, and general mobility Rehab Potential: Fair PT Short Term Goals Short Term Goals Time Frame: Jul 04, 2016 Transfers (B,C,W/C) (FIM): 5 Gait (FIM): 5 Gait Distance Comment: 400' Gait Level of Assist: 5 Gait Assistive Device: FWW PT Investor Relations Coordinator Goals Assisted Goals PT Investor Relations Coordinator Goals Time Frame: Jul 18, 2016 Transfers (B,C,W/C) (FIM): 6 Sit to Lying (QC): 6 Lying-Sitting on Side/Bed(QC): 6 Sit to Stand (QC): 6 Rollin Roll Left to Right (QC): 6 Car Transfer (QC): 5 Gait (FIM): 6 Distance: 500' Walk 10 feet (QC): 6 Walk 10ft-Uneven Surface(QC): 6 Walk 50ft with 2 Turns (QC): 6 Walk 150 ft (QC): 6 Gait Assistive Device: FWW Stairs (FIM): 5 # of Steps: 12 1 Step (curb) (QC): 4 4 Steps (QC): 4 12 Steps (QC): 4 Stairs Level Of Assist: 5 Picking up an Object (QC): 4 PT Plan Problem List Problem List: Activity Tolerance, Functional Strength, Safety, Balance, Gait, Transfer, Bed Mobility Treatment/Plan Treatment Plan: Continue Plan of Care Treatment Plan: Bed Mobility, Education, Functional Activity Imani, Functional Strength, Group Therapy, Gait, Safety, Therapeutic Exercise, Transfers Treatment Duration: Jul 18, 2016 # of days/week 5-6 Visits Per Week: 10-11 Minutes/Day (M-F): 60-90 Minutes/Day (Sat/[place]): 15-30 Pt/Family Agrees w/Plan: Yes Safety Risks/Education Patient Education: Gait Training, Transfer Techniques, Steps, Correct Positioning, Safety Issues Teaching Recipient: Patient Teaching Methods: Demonstration, Discussion Response to Teaching: Reinforcement Needed Discharge Recommendations Plan Patient will perform bed mobility and transfer training, balance and endurance training, functional strengthening, stair training, gait training, education, to improve functional mobility and independence at home. Therapy D/C Recommendations: Home w/ Family Support Time/GCodes Time In: 1015 Time Out: 1115 Total Billed Treatment Time: 60 Total Billed Treatment 1 visit EVL 15 min EX 15 min GT 30 min AKASH GUERRA PT Jun 27, 2016 11:16
[2016-06-27] MEDS ORDERED: 1/2 NS IV SOLUTION 1,000 ML IV SCH (11:30)
[2016-06-27] MEDS ORDERED: RT-ALBUTEROL/IPRATROPIUM 3 ML (DUONEB) VIAL INH SCH ×2 (14:00→21:00)
--- NOTE | 2016-06-27 14:04 | Occupational Therapy Eval ---
OT Evaluation-General/PLF Medical Diagnosis Admission Date Jun 27, 2016 at 10:25 Medical Diagnosis: acute renal failure Onset Date: Jun 23, 2016 Therapy Diagnosis Therapy Diagnosis: Weakness, Decreased ADL skills Height/Weight Height (Feet): 5 Height (Inches): 7.00 Weight (Pounds): 240 Weight (Ounces): 6.0 Weight Bear Status Weight Bearing Restriction: Weight Bearing/Tolerated Referral Physician: Tj Referral Reason: Activity Tolerance, Self Care, Evaluation/Treatment, Strengthening/ROM Medical History Pertinent Medical History: Arthritis, DM, HTN Additional Medical History back pain, renal failure, penile implant Current History Pt. came to ER with AMS. Diagnosed with metabolic encephalopathy. Reviewed History: Yes Social History Home: Single Level Current Living Status: Spouse Entry Into Home: Ramp ADL-Prior Level of Function ADL PLOF Comments Pt. states that previous to becoming ill, pt. was independent with daily tasks. DME/Equipment: Bath Chair, Tub/Shower DME/Equipment Comments Pt. has a walker that he uses. Occupation: Disabled Drive Self: Yes OT Current Status Subjective Pt. reports 7/10 pain in back. States, "this is all the time though, nothing new." Has already had medication. Appearance Pt. is up in chair. Agrees to work with OT. Mental Status/Objective Patient Orientation: Person, Place Current Hand Dominance: Right Upper Extremity ROM Pt. is able to flex bilateral UE to approximately 90 degrees. Unable to reach further due to arthritis. Pt. also states that he has an old shoulder injury to his right side. Upper Extremity Strength Pt. demonstrates 3+/5 strength in bilateral shoulders. ADL-Treatment Functional [place] Measure 0=Not Assessed/NA 4=Minimal Assistance 1=Total Assistance 5=Supervision or Setup 2=Maximal Assistance 6=Modified [place] 3=Moderate Assistance 7=Complete IndependenceIRFPAI Quality Coding Scale 6 Independent with activity with or without an assistive device 5 Patient requires set up or clean up by helper. Patient completes activity by themselves 4 Supervision or touching assist (CGA). [place] provide cues , steadying assist 3 The helper provides less than half the effort to complete the activity 2 The helper provides more than half the effort to complete the activity 1 Dependent. The helper does all the effort to complete an activity 7 Patient refused to complete or attempt activity 9 The patient did not perform the activity before the current illness or injury 88 Not attempted due to Medical conditions or safety concerns Eating (FIM): 5 Eating (QC): 5 Grooming (FIM): 5 (Pt. is able comb hair after set up.) Bathing (FIM): 4 (Pt. requires CGA in shower to bathe self.) Shower/Bathe Self (QC): 4 Lower Body Dressing (FIM): 5 (Pt. is able to doff/don socks and slippers with SBA.) Lower Body Dressing (QC): 5 On/Off Footwear (QC): 5 Toileting (FIM): 5 (Pt. does have some leakage at times, but overall is able to manage his trini care after toileting.) Toileting Hygiene (QC): 5 Transfers (B, C, W/C) (FIM): 4 (Pt. requires CGA to tranfer. Uses walker.) Toilet/Commode Transfer (FIM): 4 Shower Transfer (FIM): 4 Other Treatments Pt. agreed to shower this date. No street clothing available. Pt. is doing relatively well. Requires increased time to complete tasks. Education OT Patient Education: Modified ADL techniques, Progress toward Goal/Update tx plan, Purpose of tx/functional activities, Reviewed precautions, Rehab process, Transfer techniques Teaching Recipient: Patient Teaching Methods: Demonstration, Discussion Response to Teaching: Verbalize Understanding, Return Demonstration OT Short Term Goals Short Term Goals Time Frame: Jul 04, 2016 Eating(FIM): 7 Grooming(FIM): 5 Bathing(FIM): 5 Upper Body Dressing(FIM): 5 Lower Body Dressing(FIM): 5 Toileting(FIM): 5 Transfers (B,C,W/C) (FIM): 5 Toilet/Commode Transfer(FIM): 5 Shower Transfer(FIM): 5 Additional Short Term Goals: 1-Demonstrate ADL Tasks, 2-Verbalize Understanding , 3-ImproveStrength/Imani 1=Demonstrate adherence to instructed precautions during ADL tasks. 2=Patient will verbalize/demonstrate understanding of assistive devices/ modifications for ADL. 3=Patient will improve strength/tolerance for activity to enable patient to perform ADL's. OT Portable Track Line Marker Goals Portable Track Line Marker Goals Time Frame: Jul 18, 2016 Eating (FIM): 7 Eating (QC): 6 Groomin Oral Hygiene (QC): 6 Bathing(FIM): 5 Shower/Bathe Self (QC): 5 Upper Body Dressing(FIM): 6 Upper Body Dressing (QC): 6 Lower Body Dressing(FIM): 6 On/Off Footwear (QC): 6 Toileting(FIM): 6 Toileting Hygiene (QC): 6 Transfers (B,C,W/C) (FIM): 6 Toilet/Commode Transfer(FIM): 6 Toilet/Commode Transfer (QC): 6 Shower Transfer(FIM): 5 Additional Goals: 1-Demonstrate ADL Tasks, 2-Verbalize Understanding, 3- ImproveStrength/Imani 1=Demonstrate adherence to instructed precautions during ADL tasks. 2=Patient will verbalize/demonstrate understanding of assistive devices/ modifications for ADL. 3=Patient will improve strength/tolerance for activity to enable patient to perform ADL's. OT Education/Plan Problem List/Assessment Assessment: Decreased Activ Tolerance, Decreased UE Strength, Dependent Transfers, Impaired Bed Mobility, Impaired Funct Balance, Impaired I ADL's, Impaired Self-Care Skills, Restricted Funct UE ROM Discharge Recommendations Plan/Recommendations: Continue POC Therapy D/C Recommendations: Home w/ Family Support, Occupational Therapy Home Care Equpiment Recommendations-D/C: Extended Bath Bench Treatment Plan/Plan of Care Treatment,Training & Education: Yes Patient would benefit from OT for education, treatment and training to promote independence in ADL's, mobility, safety and/or upper extremity function for ADL' s. Plan of Care: ADL Retraining, Functional Mobility, UE Funct Exercise/Act Treatment Duration: Jul 18, 2016 # of days/week 5-6 Visits Per Week: 5-6 Minutes/Day (M-F): 60-90 Minutes/Day (Sat/[place]): PRN Agreement: Yes Rehab Potential: Good Time/GCodes Start Time: 11:15 Stop Time: 12:00 Total Time Billed (hr/min): 45 Billed Treatment Time 1, EVMod x 15minutes, ADL x 30minutes GERARD WHITLEY OT Jun 27, 2016 14:04
--- NOTE | 2016-06-27 14:32 | ST Cognitive Linguistic Eval ---
Speech Evaluation-General Medical Diagnosis acute renal failure Onset Date: Jun 23, 2016 Therapy Diagnosis Therapy Diagnosis: Mild Cognitive Impairment Referral Referring Physician: Dr. Mathew Spencer Reason for Referral: Evaluation/Treatment Cognitive, Speech, Language Medical History Pertinent Medical History: Arthritis, DM, HTN Reviewed History: Yes Social History Current Living Status: Spouse Speech PLF-Current Status Prior Level of Function The patient denied cognitive, speech, or language deficits prior to admission. Per patient, he does not recall the events that surrounded his accident. Subjective The patient was recently admitted to [facility] following acute renal failure and metabolic encephalopathy. The patient greeted the clinician and was agreeable to participation in the cognitive evaluation. To note, the patient has demonstrated excellent progression from his acute inpatient stay one week prior. Language Eval: Auditory Comprehends Simple Yes/No Ques: Functional Indent/Objects Multiple [place]: Functional Ident/Pics in Multiple [place]: Functional Follows 1-Step Commands: Functional Follows Complex Directions: Mild (Repetition needed for increased accuracy..) Follows General Conversations: Functional (Intermittent redirection to topic was necessary by clinician.) Language Eval: Verbal Language Completes Spontaneous Greeting: Functional Produces Auto, Serial Info: Functional Imitates Simple Words/Phrases: Functional Word Finding: Functional Requests Basic Needs: Functional States Basic Personal Info: Functional Expresses Complex Ideas: Mild Cognitive Patient Orientation The patient was oriented to month, day of week, date, and year independently. Objective Cognitive Domain Attention: Mild Memory: Mild Problem Solving: Mild Objective Impression The patient demonstrated mild cognitive impairments in the areas of attention ( intermittent redirection to task required), memory (verbal cues from clinician) , and problem solving (mildly delayed response time). Communication/Social Cognition Comprehension: 4 Expression: 5 Social Interaction: 4 Problem Solvin Memory: 4 Speech Patient Assess Expression of Ideas/Wants: Exhibits (3) Understanding [place] Content: Usually Understands (3) Brief Interview-Mental Status: Yes Repetition of Three Words: Three (3) Temporal Orientation: Year: Correct (3) Temporal Orientation: Month: Accurate within 5 days(2) Temporal Orientation: Day: Correct (1) Recall : Wear to say "Sock": Yes, no cue required (2) Recall : Color: Yes, no cue required (2) Recall : Bed: Yes, no cue required (2) Speech Short Term Goals Short Term Goals Short Term Goals 1. The patient will recall and demonstrate two functional memory strategies with 80% accuracy, independently. 2. The patient will demonstrate safety problem solving (functional) with 80% accuracy, independently. 3. The patient will complete structured executive functioning tasks with 80% accuracy, independently. Time Frame-STG: Two Weeks Speech Director Insurance Goals Care Home Goals 1. The patient will improve cognitive linguistic skills for increased function and safety with ADL's in the least restrictive setting. Time Frame: Four Weeks Comprehension: 5 Expression: 5 Social Interaction: 5 Problem Solvin Memory: 5 Speech-Plan Treatment Plan Speech Therapy Treatment Plan: Continue Plan of Care Continue skilled speech pathology to improve cognitive linguistic functions, as well as, strengthening exercises for swallowing musculature. Treatment Duration: July 25, 2016 # of days/week Five. Visits Per Week: Five. Minutes/Day (M-F): 30 Rehab Potential: Guarded Safety Risks/Education Teaching Recipient: Patient Teaching Methods: Discussion Response to Teaching: Verbalize Understanding Education Topics Provided: Plan of Care, Results, Recommendations Time Speech Therapy Time In: 14:50 Speech Therapy Time Out: 15:20 Total Billed Time: 30 Billed Treatment Time 1, CHRISTIANO STOVALL Jun 27, 2016 14:32
--- NOTE | 2016-06-27 14:34 | Occupational Ther Daily Note ---
OT Current Status-Daily Note Subjective No pain reported. Appearance Pt. is up in chair. Agreeable to work with OT. Mental Status/Objective Patient Orientation: Person, Place Functional [place] Measure 0=Not Assessed/NA 4=Minimal Assistance 1=Total Assistance 5=Supervision or Setup 2=Maximal Assistance 6=Modified [place] 3=Moderate Assistance 7=Complete [place] ADL-Treatment Functional [place] Measure 0=Not Assessed/NA 4=Minimal Assistance 1=Total Assistance 5=Supervision or Setup 2=Maximal Assistance 6=Modified [place] 3=Moderate Assistance 7=Complete IndependenceIRFPAI Quality Coding Scale 6 Independent with activity with or without an assistive device 5 Patient requires set up or clean up by helper. Patient completes activity by themselves 4 Supervision or touching assist (CGA). [place] provide cues , steadying assist 3 The helper provides less than half the effort to complete the activity 2 The helper provides more than half the effort to complete the activity 1 Dependent. The helper does all the effort to complete an activity 7 Patient refused to complete or attempt activity 9 The patient did not perform the activity before the current illness or injury 88 Not attempted due to Medical conditions or safety concerns Transfers (B, C, W/C) (FIM): 4 (Pt. requires CGA during ambulation to maintain balance and stability.) Other Treatment Pt. ambulated to therapy gym with CGA. Completed 10 minutes on armbike to increase overall strength and mobility. Tolerated this well. Donned 1 lb. wrist weights and completed series of fine motor and UE tasks. Utilized nuts/ bolts, therapy clothespins for pinch strength and supination/pronation. Pt. does notice that his hands feel more weak from current hospitalization. After treatment, ambulated back to room. Noted more leakage of bowel movement. Pt. unable to know when this is happening. Able to cleanse self up. All needs met up in chair. Education OT Patient Education: Correct positioning, Exercise program, Modified ADL techniques, Progress toward Goal/Update tx plan, Purpose of tx/functional activities, Reviewed precautions, Rehab process, Transfer techniques Teaching Recipient: Patient Teaching Methods: Demonstration, Discussion Response to Teaching: Verbalize Understanding, Return Demonstration OT Short Term Goals Short Term Goals Time Frame: Jul 04, 2016 Eating(FIM): 7 Grooming(FIM): 5 Bathing(FIM): 5 Upper Body Dressing(FIM): 5 Lower Body Dressing(FIM): 5 Toileting(FIM): 5 Transfers (B,C,W/C) (FIM): 5 Toilet/Commode Transfer(FIM): 5 Shower Transfer(FIM): 5 Additional Short Term Goals: 1-Demonstrate ADL Tasks, 2-Verbalize Understanding , 3-ImproveStrength/Imani 1=Demonstrate adherence to instructed precautions during ADL tasks. 2=Patient will verbalize/demonstrate understanding of assistive devices/ modifications for ADL. 3=Patient will improve strength/tolerance for activity to enable patient to perform ADL's. OT Shelter Goals Shelter Goals Time Frame: Jul 18, 2016 Eating (FIM): 7 Eating (QC): 6 Groomin Oral Hygiene (QC): 6 Bathing(FIM): 5 Shower/Bathe Self (QC): 5 Upper Body Dressing(FIM): 6 Upper Body Dressing (QC): 6 Lower Body Dressing(FIM): 6 On/Off Footwear (QC): 6 Toileting(FIM): 6 Toileting Hygiene (QC): 6 Transfers (B,C,W/C) (FIM): 6 Toilet/Commode Transfer(FIM): 6 Toilet/Commode Transfer (QC): 6 Shower Transfer(FIM): 5 Additional Goals: 1-Demonstrate ADL Tasks, 2-Verbalize Understanding, 3- ImproveStrength/Imani 1=Demonstrate adherence to instructed precautions during ADL tasks. 2=Patient will verbalize/demonstrate understanding of assistive devices/ modifications for ADL. 3=Patient will improve strength/tolerance for activity to enable patient to perform ADL's. OT Education/Plan Problem List/Assessment Assessment: Decreased Activ Tolerance, Decreased UE Strength, Dependent Transfers, Impaired Bed Mobility, Impaired Funct Balance, Impaired I ADL's, Impaired Self-Care Skills, Restricted Funct UE ROM Discharge Recommendations Plan/Recommendations: Continue POC Therapy D/C Recommendations: Home w/ Family Support, Occupational Therapy Home Care Treatment Plan/Plan of Care Treatment,Training & Education: Yes Patient would benefit from OT for education, treatment and training to promote independence in ADL's, mobility, safety and/or upper extremity function for ADL' s. Plan of Care: ADL Retraining, Functional Mobility, UE Funct Exercise/Act Treatment Duration: Jul 18, 2016 Visits Per Week: 5-6 Minutes/Day (M-F): 60-90 Minutes/Day (Sat/[place]): PRN Agreement: Yes Rehab Potential: Good Time/GCodes Start Time: 13:00 Stop Time: 13:45 Total Time Billed (hr/min): 45 Billed Treatment Time 1, ADL x 15minutes, EX x 30minutes GERARD WHITLEY OT Jun 27, 2016 14:34
--- NOTE | 2016-06-27 14:52 | Physical Therapy Daily Note ---
PT Daily Note-Current Subjective Patient agrees to PT. No c/o at this time. Pain Numeric Pain Scale: 0-No Pain Location: No Pain Reported Mental Status Patient Orientation: Normal For Age Transfers Functional [place] Measure 0=Not Assessed/NA 4=Minimal Assistance 1=Total Assistance 5=Supervision or Setup 2=Maximal Assistance 6=Modified [place] 3=Moderate Assistance 7=Complete IndependenceIRFPAI Quality Coding Scale 6 Independent with activity with or without an assistive device 5 Patient requires set up or clean up by helper. Patient completes activity by themselves 4 Supervision or touching assist (CGA). [place] provide cues , steadying assist 3 The helper provides less than half the effort to complete the activity 2 The helper provides more than half the effort to complete the activity 1 Dependent. The helper does all the effort to complete an activity 7 Patient refused to complete or attempt activity 9 The patient did not perform the activity before the current illness or injury 88 Not attempted due to Medical conditions or safety concerns Transfers (B, C, W/C) (FIM): 4 Scootin Rollin Roll Left to Right (QC): 5 Supine to/from Sit: 5 Sit to/from Stand: 4 Sit to Lying (QC): 5 Sit to Stand (QC): 4 Chair/Nbs-ps-Tvaay Xfer(QC): 4 Bed to/from Chair: 4 CGA for safety with gait belt in place; patient had 2 episodes of LOB with self correction. Gait Training Does the Patient Walk?: Yes Gait (FIM): 1 Distance (FIM): 1=up to 49 ft Distance: 15' x 2 Walk 10 feet (QC): 4 Gait Level of Assist: 4 Gait Persons Needed: 1 Gait Assistive Device: FWW Patient ambulate to and from bathroom CGA for safety with slow, steady gait. Assessment Patient requires skilled verbal instruction for safety concerns with transfers and gait. Patient is impulsive with decreased safety awareness. Patient is in bed with 4 rails up and call light in hand. PT Short Term Goals Short Term Goals Time Frame: Jul 04, 2016 Transfers (B,C,W/C) (FIM): 5 Gait (FIM): 5 Gait Distance Comment: 400' Gait Level of Assist: 5 Gait Assistive Device: FWW PT Correction Goals Correction Goals PT [place] Goals Time Frame: Jul 18, 2016 Transfers (B,C,W/C) (FIM): 6 Sit to Lying (QC): 6 Lying-Sitting on Side/Bed(QC): 6 Sit to Stand (QC): 6 Rollin Roll Left to Right (QC): 6 Car Transfer (QC): 5 Gait (FIM): 6 Distance: 500' Walk 10 feet (QC): 6 Walk 10ft-Uneven Surface(QC): 6 Walk 50ft with 2 Turns (QC): 6 Walk 150 ft (QC): 6 Gait Assistive Device: FWW Stairs (FIM): 5 # of Steps: 12 1 Step (curb) (QC): 4 4 Steps (QC): 4 12 Steps (QC): 4 Stairs Level Of Assist: 5 Picking up an Object (QC): 4 PT Plan Treatment/Plan Treatment Plan: Continue Plan of Care Treatment Plan: Bed Mobility, Education, Functional Activity Imani, Functional Strength, Group Therapy, Gait, Safety, Therapeutic Exercise, Transfers Treatment Duration: Jul 18, 2016 Visits Per Week: 10-11 Minutes/Day (M-F): 60-90 Minutes/Day (Sat/[place]): 15-30 Time/GCodes Time In: 1435 Time Out: 1450 Total Billed Treatment Time: 15 Total Billed Treatment 1 visit FA 15 min REMIGIO NDIAYE PT Jun 27, 2016 14:52
[2016-06-27] MEDS ORDERED: RT-ALBUTEROL/IPRATROPIUM 3 ML (DUONEB) VIAL INH PRN ×2 (16:15→21:30)
[2016-06-27] MEDS: GABAPENTIN 600 MG (NEURONTIN) TAB PO SCH ×2 (17:14→20:55)
[2016-06-27] MEDS: ACYCLOVIR INJECTION 500 MG in NS (IVPB) 100 ML IV SCH ×2 (17:22→21:07)
[2016-06-27] MEDS: inSUlin (REGULAR) HUMAN 1 UNIT/0.01 ML (CHARGE PER UNIT) SC SCH ×2 (17:31→20:55)
[2016-06-27] MEDS: oxyCODONE/APAP 5/325MG (PERCOCET 5) TABLET PO PRN (17:53)
[2016-06-27 18:40] VITALS: BP 146/76
[2016-06-27] MEDS ORDERED: RT-ADVAIR HFA 115/21 MCG PER PUFF IH SCH (20:00)
[2016-06-27] MEDS ORDERED: ADVAIR HFA 115/21 MCG INHALER 8 GM IH SCH (20:00)
[2016-06-27] MEDS: NICOTINE 14 MG (NICODERM) PATCH TD SCH ×2 (20:05→21:08)
[2016-06-27] MEDS: PANTOPRAZOLE 40 MG (PROTONIX) TAB PO SCH (20:55)
[2016-06-27] MEDS: CATHETER FLUSH 10 ML SYR IV PRN (21:07)
[2016-06-28 05:24] VITALS: BP 169/75
[2016-06-28] MEDS: inSUlin (REGULAR) HUMAN 1 UNIT/0.01 ML (CHARGE PER UNIT) SC SCH (05:55)
[2016-06-28] MEDS: ACYCLOVIR INJECTION 500 MG in NS (IVPB) 100 ML IV SCH (05:55)
[2016-06-28] MEDS: CATHETER FLUSH 10 ML SYR IV PRN (05:55)
[2016-06-28] MEDS: RT-ALBUTEROL/IPRATROPIUM 3 ML (DUONEB) VIAL INH SCH ×3 (07:32→19:59)
[2016-06-28] MEDS: RT-ADVAIR HFA 115/21 MCG PER PUFF IH SCH ×2 (07:38→19:59)
[2016-06-28] MEDS: lisINopril 10 MG (PRINIVIL) TAB PO SCH (07:48)
[2016-06-28] MEDS: oxyCODONE/APAP 5/325MG (PERCOCET 5) TABLET PO PRN (07:48)
[2016-06-28] MEDS: amLODIPine 10 MG (NORVASC) TAB PO SCH (07:49)
[2016-06-28] MEDS: GABAPENTIN 600 MG (NEURONTIN) TAB PO SCH ×3 (07:50→20:31)
[2016-06-28] MEDS: PANTOPRAZOLE 40 MG (PROTONIX) TAB PO SCH ×2 (07:50→20:31)
[2016-06-28] MEDS: NICOTINE 14 MG (NICODERM) PATCH TD SCH (07:51)
[2016-06-28] MEDS: NICOTINE PATCH REMOVAL TP SCH (07:55)
--- NOTE | 2016-06-28 10:32 | HISTORY AND PHYSICAL ---
DATE OF ADMISSION: 06/27/2016 CHIEF COMPLAINT: Difficulty with walking. HISTORY OF THE PRESENT ILLNESS: The patient is a 60-year-old disabled male with chronic back pain who was admitted to the hospitalist service on 06/12 at [facility] due to altered mental status and hypotension with a history of similar event back in 2014 felt to be this time related to acute renal failure and overmedication. The patient was provided with intravenous fluids. The patient was treated in the ICU and required intubation. The acute renal failure resolved. Labs were followed-up. The patient was extubated. MRI of the head was negative. Lumbar puncture was negative. The patient gradually improved, but then developed sepsis, due to pneumonia and this was treated, could have been due to possible aspiration. The patient was provided with PEG tube placement by Dr. San and made n.p.o. initially. He was seen by therapy including PT/OT and speech. He gradually improved. His diet was advanced to pureed with honey thickened liquids. He is now referred to Inpatient Rehabilitation Unit for ongoing therapies. Currently he requires assistance for his ADLs and mobility skills. He has limited endurance. He is recovering from shingles and has a patchy, erythematous area over the right posterior shoulder. The patient currently has mildly impaired memory and problem solving but appears to be improving. He is appropriate. He lives in [place], [place], lives with his significant other; he is listed as . He was independent prior to this but does have a walker that he uses. His PCP is Dr. Nuno in [place]. Currently he is set up for eating, grooming. Requires assistance for his honey thickened liquids and assist for bathing. Set up for lower body dressing. Min assist for transfers and he is min assist for ambulation short distances with a front wheel walker. His standing balance is fair both dynamic and static. Sitting balance good PAST MEDICAL HISTORY: 1. Diabetes mellitus. 2. Hypertension. 3. Chronic back pain. 4. Disability. PAST SURGICAL HISTORY: He has had arthroscopy on his knees. ALLERGIES: No known medication allergies. FAMILY HISTORY: Noncontributory. SOCIAL HISTORY: Disabled from [employer], has Medicare, lives with friends, . Chews tobacco requesting nicotine patch for smoking cessation. REVIEW OF SYSTEMS: Ten-point review of systems significant for unsteady gait generalized weakness memory impairment appears to be improving. MEDICATIONS: 1. Zestril 10 mg p.o. daily. 2. Amlodipine 10 mg p.o. daily. 3. Protonix 40 mg p.o. q.12 h. 4. DuoNeb treatments t.i.d. 5. Advair 2 puffs b.i.d. daily. 6. Nicotine Patch 14 mg daily started now. 7. Sliding scale insulin regimen A. 8. Acyclovir IV q.8 h. 9. Gabapentin 600 mg p.o. t.i.d. 10. Percocet 5/325, 1 tablet p.o. t.i.d. p.r.n. moderate pain. PHYSICAL EXAMINATION: Significant for a male, appearing his stated age, sitting up at side of bed eating his modified diet. No acute distress. VITAL SIGNS: He is afebrile. Pulse is 94, blood pressure 137/54, weight 266 pounds. BMI 41.7, respirations 16. HEENT: Vision, speech, hearing, grossly intact. No oral lesion is noted. NECK: Supple without mass. HEART: Regular rhythm. LUNGS: Clear. ABDOMEN: Soft, nontender. Bowel sounds present. PEG tube in place. No drainage noted. EXTREMITIES: Trace edema. No calf tenderness. BACK: Erythematous patch over the right scapula. No drainage noted. No pustules. MUSCULOSKELETAL: Strength generally 4-/5 both lower extremities and the left upper limb. 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 NEUROLOGIC: Sensation impaired to touch in legs. Coordination slight gait imbalance, slight memory impairment as per above for cognition, although the patient appears fairly appropriate and answers questions and is alert and oriented x3. IMPRESSION: 1. Metabolic encephalopathy with resulting decrease in functional independence related to ARF gradually improving. 2. Dysphagia due to above, improving. 3. Status post PEG tube placement no longer on tube feeds but on modified diet as per above. 4. Hypertension, controlled with medication. 5. Acute renal failure, treated. 6. Chronic low back pain with disability. 7. Nicotine use. The patient requests smoking cessation , nicotine patch provided at lower dose. 8. DM meds being adjusted 9. Shingles resolved PLAN: The patient will have a comprehensive program of inpatient rehabilitation with goal of maximizing level of functional independence prior to discharge home with friends. The patient will have PT/OT 90 minutes per day, each discipline, 5 days a week, when not being seen by speech therapy, for gait strengthening, conditioning, balance, ADLs, any patient/ family child care associate teacher training necessary, any adaptive equipment and training necessary. Speech therapy to do ongoing cognitive therapy 3 to 5 times a week 30 to 45 minutes per day for 2 to 3 weeks. Rehabilitation nursing to assist with bowel, bladder, skin care, medication administration, and PEG tube site care, pain management. visitor services representative to assist with discharge planning, community reentry. Follow-up with Dr. Shrestha and Hospitalist service as per their schedule.. ESTIMATED LENGTH OF STAY: Two to three weeks. PROGNOSIS: Rehab prognosis appears good for goal of discharging home friends and hopefully, modified independent to supervision for ADLs and mobility skills. DIET: Pureed with honey thick liquids. CODE STATUS: Full code POST ADMISSION PHYSICIAN ASSESSMENT: The preadmission screen agrees with the post admission assessment that the patient is a good candidate for inpatient rehabilitation. He appears very well motivated to participate in 3 hours of therapy a day. He should be able tolerate 3 hours of therapy a day from a medical standpoint. He should benefit from the 3 hours of therapy a day. He has a reasonable discharge plan, reasonable discharge rehabilitation goals and a supportive family. We will follow-up with rn social services in a.m. regarding more specifics about support he has at home. He has various comorbidities that need to be closely monitored with medications and treatments adjusted daily basis and these include his chronic pain, hypertension. His resolving shingles and his hypertension. Barriers to discharge for this patient who had been modified independent with a walker prior to this are for him to be modified independent to supervision for ADLs and mobility skills prior to discharge home with home health care with hopefully improved cognition as well. Risks for this patient: Include: 1. Fall. 2. Fracture. 3. DVT. 4. Pulmonary embolism. 5. Urinary retention. 6. UTI 7. Respiratory infection. 8. Aspiration. 9. Recurrent shingles. 10. Poorly controlled hypertension. 11. Poorly controlled pain. 12. Worsening confusion. Job ID: [id number] Dictated Date: 06/27/2016 18:38:01 Broiler Manager Date: 06/28/2016 10:03:04/wally PETERSON
--- NOTE | 2016-06-28 11:02 | Occupational Ther Daily Note ---
OT Current Status-Daily Note Subjective No pain reported. Appearance Pt. is in bed. Agrees to shower. States that he had an "accident" with urine in his underwear. Mental Status/Objective Patient Orientation: Person, Place Functional [place] Measure 0=Not Assessed/NA 4=Minimal Assistance 1=Total Assistance 5=Supervision or Setup 2=Maximal Assistance 6=Modified [place] 3=Moderate Assistance 7=Complete [place] ADL-Treatment Functional [place] Measure 0=Not Assessed/NA 4=Minimal Assistance 1=Total Assistance 5=Supervision or Setup 2=Maximal Assistance 6=Modified [place] 3=Moderate Assistance 7=Complete IndependenceIRFPAI Quality Coding Scale 6 Independent with activity with or without an assistive device 5 Patient requires set up or clean up by helper. Patient completes activity by themselves 4 Supervision or touching assist (CGA). [place] provide cues , steadying assist 3 The helper provides less than half the effort to complete the activity 2 The helper provides more than half the effort to complete the activity 1 Dependent. The helper does all the effort to complete an activity 7 Patient refused to complete or attempt activity 9 The patient did not perform the activity before the current illness or injury 88 Not attempted due to Medical conditions or safety concerns Grooming (FIM): 5 (Pt. is able to stand at sink and comb hair, brush teeth with SBA.) Oral Hygiene (QC): 5 Bathing (FIM): 5 (Pt. is able to shower with close supervision and cues for safety.) Shower/Bathe Self (QC): 4 Upper Body (FIM): 5 Upper Body Dressing (QC): 5 Lower Body Dressing (FIM): 4 (Pt. requires min assist to buckle overalls, as the strap was twisted.) Lower Body Dressing (QC): 4 On/Off Footwear (QC): 5 Toileting (FIM): 3 (Pt. has been somewhat incontinent the last two days of bowel and urine. Is able to clean self, but requires assist, and does not always know that he has went.) Toileting Hygiene (QC): 3 Transfers (B, C, W/C) (FIM): 4 (CGA at times to ambulate in room.) Toilet/Commode Transfer (FIM): 4 Toilet Transfer (QC): 4 Shower Transfer(FIM): 4 Education OT Patient Education: Exercise program, Modified ADL techniques, Progress toward Goal/Update tx plan, Purpose of tx/functional activities, Reviewed precautions, Rehab process, Transfer techniques Teaching Recipient: Patient Teaching Methods: Demonstration, Discussion Response to Teaching: Verbalize Understanding, Return Demonstration OT Short Term Goals Short Term Goals Time Frame: Jul 04, 2016 Eating(FIM): 7 Grooming(FIM): 5 Bathing(FIM): 5 Upper Body Dressing(FIM): 5 Lower Body Dressing(FIM): 5 Toileting(FIM): 5 Transfers (B,C,W/C) (FIM): 5 Toilet/Commode Transfer(FIM): 5 Shower Transfer(FIM): 5 Additional Short Term Goals: 1-Demonstrate ADL Tasks, 2-Verbalize Understanding , 3-ImproveStrength/Imani 1=Demonstrate adherence to instructed precautions during ADL tasks. 2=Patient will verbalize/demonstrate understanding of assistive devices/ modifications for ADL. 3=Patient will improve strength/tolerance for activity to enable patient to perform ADL's. OT College Sports Coach Goals Group Home Goals Time Frame: Jul 18, 2016 Eating (FIM): 7 Eating (QC): 6 Groomin Oral Hygiene (QC): 6 Bathing(FIM): 5 Shower/Bathe Self (QC): 5 Upper Body Dressing(FIM): 6 Upper Body Dressing (QC): 6 Lower Body Dressing(FIM): 6 On/Off Footwear (QC): 6 Toileting(FIM): 6 Toileting Hygiene (QC): 6 Transfers (B,C,W/C) (FIM): 6 Toilet/Commode Transfer(FIM): 6 Toilet/Commode Transfer (QC): 6 Shower Transfer(FIM): 5 Comprehension(FIM): 5 Expression (FIM): 5 Social Interaction(FIM): 5 Problem Solving(FIM): 5 Memory(FIM): 5 Additional Goals: 1-Demonstrate ADL Tasks, 2-Verbalize Understanding, 3- ImproveStrength/Imani 1=Demonstrate adherence to instructed precautions during ADL tasks. 2=Patient will verbalize/demonstrate understanding of assistive devices/ modifications for ADL. 3=Patient will improve strength/tolerance for activity to enable patient to perform ADL's. OT Education/Plan Problem List/Assessment Assessment: Decreased Activ Tolerance, Decreased UE Strength, Dependent Transfers, Impaired Funct Balance, Impaired I ADL's, Impaired Self-Care Skills Discharge Recommendations Plan/Recommendations: Continue POC Therapy D/C Recommendations: Home w/ Family Support, Occupational Therapy Home Care Equpiment Recommendations-D/C: Extended Bath Bench Comment Pt. would like a larger walker. Target Placement Home with spouse assist. Treatment Plan/Plan of Care Treatment,Training & Education: Yes Patient would benefit from OT for education, treatment and training to promote independence in ADL's, mobility, safety and/or upper extremity function for ADL' s. Plan of Care: ADL Retraining, Functional Mobility, UE Funct Exercise/Act Treatment Duration: Jul 18, 2016 Visits Per Week: 5-6 Minutes/Day (M-F): 60-90 Minutes/Day (Sat/[place]): PRN Agreement: Yes Rehab Potential: Good Time/GCodes Start Time: 08:30 Stop Time: 09:30 Total Time Billed (hr/min): 60 Billed Treatment Time 1, ADL x 4 GERARD WHITLEY OT Jun 28, 2016 11:02
[2016-06-28] MEDS ORDERED: inSUlin DETERMIR 1 UNIT/0.01 ML (LEVEMIR) CHARGE PER UNIT SQ ONE (11:30)
--- NOTE | 2016-06-28 11:30 | ST Dysphagia Evaluation ---
Speech Evaluation-General Medical Diagnosis acute renal failure Onset Date: Jun 23, 2016 Therapy Diagnosis Therapy Diagnosis: Moderate Oropharyngeal Dysphagia Precautions Precautions: Aspiration Precautions/Isolations: Fall Prevention, Standard Precautions Referral Referring Physician: Dr. Mathew Spencer Reason for Referral: Evaluation/Treatment Clinical Bedside Swallowing Evaluation Medical History Pertinent Medical History: Arthritis, DM, HTN Reviewed History: Yes Social History Current Living Status: Spouse Speech PLF/Current-Dysphagia Prior Level of Function Per patient, he was receiving thickened liquids at home prior to admission. The patient was unable to state the rationale behind the thickened liquids, however , stated he had been thickening his liquids for the past three weeks. The patient consumes regular consistencies at home. Subjective The patient was recently admitted to [facility] with a diagnosis of acute renal failure. The patient greeted the clinician appropriately and agreed to participate in the dysphagia evaluation on this date. To note: The patient participated in a modified barium swallow on 06/26/16 which revealed trace laryngeal penetration with honey-thick liquids and marked pharyngeal residue with puree consistencies. Following the video swallow, the patient was placed on a pureed diet with honey-thick liquids (no straws, cough following initial swallow, double swallow, upright and alert for PO, crush medication and place in puree for administration). Cognitive Status Patient Orientation: Person, Place, Time, Situation Oral Motor Skills Dentition: Natural (Ill, poor condition.) Current Food Consistancy: Pureed, Honey Liquids Ability to Follow Directions: Excellent Oral Expression Ability: No Impairment Observation: Excessive Excretion Hypopharynx Other Contributing Factors: PEG Tube Voice Voice Phonatory-Based Quality: Glottal [place] (Intermittently "wet") Voice Pitch: Normal Voice Loudness: Normal Face Facial Symmetry: Symmetrical Oral-Facial Assessment Oral-Facial Dentition: Normal Labial Seal Description: Normal Smile: Normal Puff Cheeks: Normal Lingual Protrusion: Normal Lingual ROM: Normal Lingual Strength: Normal Pharynx Velopharyngeal Move.: Normal Volitional Dry Swallow: Yes Voluntary Cough: Yes Can Clear Throat Volitionally: Yes Productive Cough: Yes Productive Throat Clear: Yes Dysphagia Evaluation Consistencies Presented: Regular, Honey Thick Liquid, Pureed Mild puree residue was noted on the lingual surface post swallow. Pharyngeal Phase: Reduced Laryngeal Elevation Reduced laryngeal elevation was noted with all consistencies tested. - To note, the patient demonstrated a "wet" vocal quality at baseline. The patient's vocal quality did not change/alter following bolus trials. The patient was able to clear vocal quality with cues from clinician. Per patient, "I can feel when that stuff sets there," in correlation to penetrated bolus material and saliva. The patient was encouraged to clear his throat when he experiences this sensation. - Honey Thick Liquid, Puree, Solid: No signs/symptoms of aspiration were demonstrated with any consistency tested during the bedside swallowing evaluation. Dietary Recommendations: Mechanical Soft Liquid Recommendations: Honey Consistancy Swallowing Precautions: Double Swallow, Decreased Bolus 1/2 Tsp, Liquids from Cup, No Straw, Small Bites and Sips, Sitting 90 Degrees 30 Post Intake 1. Swallow, Cough, Subsequent Dry Swallow (all consistencies) 2. Crush medication and place in puree for administration. Dysphagia Evaluation Summary The patient demonstrated moderate oropharyngeal dysphagia characterized by decreased laryngeal elevation and reduced laryngeal sensation. Speech Short Term Goals Short Term Goals Short Term Goals 1. The patient will recall and demonstrate two functional memory strategies with 80% accuracy, independently. 2. The patient will demonstrate safety problem solving (functional) with 80% accuracy, independently. 3. The patient will complete structured executive functioning tasks with 80% accuracy, independently. 4. The patient will demonstrate swallowing strategies with 80% accuracy, independently. Time Frame-STG: Two Weeks Speech Jail Goals Jail Goals 1. The patient will improve cognitive linguistic skills for increased function and safety with ADL's in the least restrictive setting. 2. The patient will tolerate the least restrictive diet without signs/symptoms of aspiration or laryngeal penetration. Time Frame: Four Weeks Comprehension: 5 Expression: 5 Social Interaction: 5 Problem Solvin Memory: 5 Speech-Plan Treatment Plan Speech Therapy Treatment Plan: Continue Plan of Care Continue skilled speech pathology to target improved swallowing safety. Treatment Duration: July 25, 2016 # of days/week Five. Visits Per Week: Five. Minutes/Day (M-F): 30 Rehab Potential: Good Safety Risks/Education Teaching Recipient: Patient, Family Teaching Methods: Demonstration, Handout, Discussion Response to Teaching: Verbalize Understanding, Return Demonstration, Reinforcement Needed Education Topics Provided: Swallowing Strategies, Recommendations, Results Time Speech Therapy Time In: 10:15 Speech Therapy Time Out: 10:45 Total Billed Time: 30 Billed Treatment Time 1 CHRISTIANO BRAND Jun 28, 2016 11:30
--- NOTE | 2016-06-28 12:00 | Progress Note-Hospitalist ---
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 Pt is receiving pain med for his right shoulder. Pt is swallowing some. Patient Interview: Pt states he is doing well today. Physical exam was stable. Pt is currently doing leg exercises with PT. Pt was encouraged to take deep breathes to clear residual pneumonia. No fever, vital signs stable, pleasant, much improved, recognized me, speaking clearly Regular rate and rhythm, clear to auscultation bilaterally but crackles in the bases No edema Assessment: Altered mental status and hypotension with history of similar event back in 2014 related to acute renal failure and overmedication requiring ICU admit with intubation even though ARF resolved and labs are stable now extubated. MRI negative and LP negative now extubated and only slight improved delirium status but now on tx for sepsis due to pneumonia and could have aspirated water so required PEG tube on Sunday and progressing well now and tx to IRF yesterday DM OOC adjusting insulin HTN Shingles resolved Plan: IS Rehab Scribed by Ricardo Martinez under the direct supervision of Dr. Shrestha. ANGÉLICA SHRESTHA DO Jun 28, 2016 12:00
--- NOTE | 2016-06-28 12:13 | Physical Therapy Daily Note ---
PT Daily Note-Current Subjective Pt sitting in recliner upon arrival. Pt agrees to PT although reports needing to use restroom before leaving room. Pain Location: No Pain Reported Mental Status Patient Orientation: Person, Place, Situation Transfers Functional [place] Measure 0=Not Assessed/NA 4=Minimal Assistance 1=Total Assistance 5=Supervision or Setup 2=Maximal Assistance 6=Modified [place] 3=Moderate Assistance 7=Complete IndependenceIRFPAI Quality Coding Scale 6 Independent with activity with or without an assistive device 5 Patient requires set up or clean up by helper. Patient completes activity by themselves 4 Supervision or touching assist ([facility]). [place] provide cues , steadying assist 3 The helper provides less than half the effort to complete the activity 2 The helper provides more than half the effort to complete the activity 1 Dependent. The helper does all the effort to complete an activity 7 Patient refused to complete or attempt activity 9 The patient did not perform the activity before the current illness or injury 88 Not attempted due to Medical conditions or safety concerns Transfers (B, C, W/C) (FIM): 4 Scootin Sit to/from Stand: 4 Sit to Stand (QC): 4 Weight Bearing Weight Bearing Restriction: Full Weight Bearing Location Restriction: LE Bilateral Gait Training Does the Patient Walk?: Yes Distance (FIM): 3=150 ft Distance: 150' Walk 10 feet (QC): 4 Walk 50 ft with 2 Turns(QC): 4 Walk 150 ft (QC): 4 Gait Level of Assist: 4 Gait Persons Needed: 1 Gait Assistive Device: FWW Pt's gait is slow but steady with no LOB. Wheelchair Training Does the Pt Use a Wheelchair?: No Exercises Seated Therapy Exercises: Ankle pumps, Long arc quads, Hip flexion, Kicking activity Seated Reps: 15 Standing: Hip Abduction, 3 way Ex=Flex, Abd, Ext, Mini squats Standing Reps: 15 NuStep Minutes: 10 NuStep Workload: 4 Treatments Pt transferred from recliner to standing using FWW at [facility]. Pt used restroom before leaving room to work in Therapy Gym. Pt ambulated using FWW at [facility]. Pt transferred to chair for Seated EX before standing and transferring to NuStep, followed by Standing Ex at //bars for strengthening and activity tolerance. Pt then ambulated back to room to rest in recliner and eat lunch that had arrived. Pt is left with all needs met at end of tx. Assessment Current Status: Good Progress Pt is gaining independence and improving safety with transfers and ambulation. PT Short Term Goals Short Term Goals Time Frame: Jul 04, 2016 Transfers (B,C,W/C) (FIM): 5 Gait (FIM): 5 Gait Distance Comment: 400' Gait Level of Assist: 5 Gait Assistive Device: FWW PT Project Drilling Engineer Goals Snf Goals PT Project Drilling Engineer Goals Time Frame: Jul 18, 2016 Transfers (B,C,W/C) (FIM): 6 Sit to Lying (QC): 6 Lying-Sitting on Side/Bed(QC): 6 Sit to Stand (QC): 6 Rollin Roll Left to Right (QC): 6 Car Transfer (QC): 5 Gait (FIM): 6 Distance: 500' Walk 10 feet (QC): 6 Walk 10ft-Uneven Surface(QC): 6 Walk 50ft with 2 Turns (QC): 6 Walk 150 ft (QC): 6 Gait Assistive Device: FWW Stairs (FIM): 5 # of Steps: 12 1 Step (curb) (QC): 4 4 Steps (QC): 4 12 Steps (QC): 4 Stairs Level Of Assist: 5 Picking up an Object (QC): 4 PT Plan Problem List Problem List: Activity Tolerance, Functional Strength, Safety, Balance, Gait, Transfer Treatment/Plan Treatment Plan: Continue Plan of Care Treatment Plan: Bed Mobility, Education, Functional Activity Imani, Functional Strength, Group Therapy, Gait, Safety, Therapeutic Exercise, Transfers Treatment Duration: Jul 18, 2016 Visits Per Week: 10-11 Minutes/Day (M-F): 60-90 Minutes/Day (Sat/[place]): 15-30 Safety Risks/Education Patient Education: Gait Training, Transfer Techniques, Correct Positioning, Safety Issues Teaching Recipient: Patient Teaching Methods: Discussion Response to Teaching: Verbalize Understanding Time/GCodes Time In: 1045 Time Out: 1130 Total Billed Treatment Time: 45 Total Billed Treatment visit, FA (15m) & EX X2 (30m) THERON YODER QA CONSULTANT Jun 28, 2016 12:13
--- NOTE | 2016-06-28 14:46 | Therapy Group Daily Note ---
Therapy Daily Group Note Patient Education Topic Home Safety, Other List Below (ARU expectations, discharge planning, rehab process and emergency planning) Exercises LE Seated Exercise, UE Exercise Other/Notes Pt ambulated with SBA using FWW to OT/PT group. Group consisted of introductions (name, place living, natural disasters), socialization, UE/LE seated exercises, discharge planning, rehab process, ARU expectations and emergency planning. Pt was able to answer questions appropriately and contribute to conversations. Pt complete UE/LE seated exercises without difficulty. Pt appeared to enjoy group and was very talkative to entire group and pt's sitting next to him. After group, pt sitting EOB with call light/ phone in reach. All needs met in room. Start Time: 13:00 Stop Time: 14:15 Total Billed Treatment Time: 75 Total Billed Treatment 1-GRP SANTIAGO SMITH Jun 28, 2016 14:46
[2016-06-28] MEDS: inSUlin ASPART (NovoLOG) 1 UNIT/0.01 ML (CHARGE PER UNIT) SC SCH (17:28)
[2016-06-28 18:31] VITALS: BP 152/85
--- NOTE | 2016-06-28 19:10 | Individualized Plan of Care ---
Individualized Plan of Care Rehab Nursing IPOC Order Admission Date Jun 27, 2016 at 10:25 Current Orders Orders Albuterol/Ipra Inhalation Soln (Duoneb I (06/28/16 08:00) Svn Sm Volume Nebulizer Rt-Rfs (06/27/16 21:28) Albuterol/Ipra Inhalation Soln (Duoneb I (06/27/16 21:30) Svn Sm Volume Nebulizer Rt-Rfs (06/27/16 21:28) Fluticasone/Salmeterol Common (Advair 11 (06/28/16 08:00) Patient Visit (06/27/16 ) Pt Eval Low Complexity (06/27/16 ) Exercise Therap, Ea 15 Min (06/27/16 ) Gait Training, Ea 15 Min (06/27/16 ) Patient Visit (06/27/16 ) Functional Activities, Ea 15 (06/27/16 ) Patient Visit (06/28/16 ) Dysphagia Evaluation Std (06/28/16 ) Incentive Spirometryrt Initial (06/28/16 11:22) Incentive Spirometry (Nursing) Q2H (06/28/16 11:22) Insulin Determir (Per Unit) (Levemir (Pe (06/28/16 11:30) Insulin Determir (Per Unit) (Levemir (Pe (06/28/16 21:00) Insulin Aspart (Novolog) (Novolog (Charg (06/28/16 16:00) Cbc With Automated Diff (06/29/16 06:00) Comprehensive Metabolic Panel (06/29/16 06:00) Patient Visit (06/28/16 ) Functional Activities, Ea 15 (06/28/16 ) Exercise Therap, Ea 15 Min (06/28/16 ) Patient Visit (06/28/16 ) Toilet every (bladder): (hrs): q 2hours while awake prn PT IPOC Problem List: Activity Tolerance, Functional Strength, Safety, Balance, Gait, Transfer Treatment Plan: Continue Plan of Care Bed Mobility, Education, Functional Activity Imani, Functional Strength, Group Therapy, Gait, Safety, Therapeutic Exercise, Transfers Treatment Duration: Jul 18, 2016 Visits Per Week: 10-11 Minutes/Day (M-F): 60-90 Minutes/Day (Sat/[place]): 15-30 OT IPOC Problems: Decreased Activ Tolerance, Decreased UE Strength, Dependent Transfers , Impaired Funct Balance, Impaired I ADL's, Impaired Self-Care Skills Plan of Care: ADL Retraining, Functional Mobility, UE Funct Exercise/Act Treatment Duration: Jul 18, 2016 Visits Per Week: 5-6 Minutes/Day (M-F): 60-90 Minutes/Day (Sat/[place]): PRN ST IPOC Speech Therapy Treatment Plan: Continue Plan of Care Treatment Duration: July 25, 2016 Visits Per Week: Five. Minutes/Day (M-F): 30 Physician IPOC Medical Issues being managed closely and that require the 24 hour availability of a physician: Dysphagia poorly controlled DM HTN Medical Issues: Bowel/Bladder Function, DVT Prophylaxis, Falls Precautions, Fluid/Electrolyte/Nutrition Balance, Infection Protection, Swallowing Precautions, Other (List) (as per above) Brief Synthesis of Preadmission Screen, Post-Admission Evaluation, and Therapy Evaluations: 60 yo disabled male who had been independent and living with family who had acute mental status change felt to be due to ARF and overmedication Admitted to Hospitalist service and meds adjusted and IVFs provided Required Peg Tube due to altered mental status Now more alert and off Tube feeds and tolerating Altered foor consistency DR Shrestha adjusting INsulin for better control of DM Shingles involving rt posterior shoulder resolved after treatment Medical Prognosis: good Anticipated Length of Stay: 07/18/16 Rehab Goals Modified [place] for adls and mobility skills with improved and safe swallow with good control of DM Anticipated discharge destinat: Home with family and [facility] MADINA HERNANDEZ MD Jun 28, 2016 19:10
--- NOTE | 2016-06-28 20:19 | PM & R (SOAP) Progress Note ---
Subjective Subjective/Events-last exam Patient was seen in his room earlier today Adjusting well to unit Appreciate Hospitalist note and therapy notes 02 sats >.92%on room air Objective Exam Last Set of Vital Signs Vital Signs Date Time Temp Pulse Resp B/P (MAP) Pulse Ox O2 Delivery O2 Flow Rate FiO2 06/28/16 19:59 96 06/28/16 18:31 97.8 95 20 152/85 Room Air Capillary Refill : I&O Bad tableGeneral: Alert, Oriented X3, Cooperative, No Acute Distress HEENT: Atraumatic, PERRLA, EOMI, Mucous Memb Moist/[place] Neck: Supple, No JVD Lungs: Clear to Auscultation Heart: Regular Rate Abdomen: Normal Bowel Sounds, Soft, No Tenderness, Other (Peg tube site clean and dry) Extremities: No Edema Skin: Other (shingles rt posterior shoulder treated with only erythematous area as residual) Neuro: Other (generalized weakness dysphagia) Results Lab Laboratory Tests 06/27/16 17:25: Glucometer 309H 06/27/16 20:49: Glucometer 284H 06/28/16 05:06: Glucometer 254H 06/28/16 11:02: Glucometer 334H 06/28/16 15:48: Glucometer 334H Assessment/Plan Assessment metabolic encephalopathy improving s/p ARF associated with overmedication improving S/P Peg tube placement DM OOC meds being adjusted by Dr Shrestha HTN controlled Shingles treated Dysphagia on modified diet-ST following Plan Continue PT/OT/ST F/U with Dr Shrestha et al Monitor Accuchecks and adjust meds as needed Advance diet consistency when ST makes rec Team Conference held earlier today-See report for full functional update and POC and MADINA BLACKBURN MD Jun 28, 2016 20:19
[2016-06-28] MEDS: inSUlin DETERMIR 1 UNIT/0.01 ML (LEVEMIR) CHARGE PER UNIT SQ SCH (20:32)
[2016-06-29 05:10] LABS: BASOPHILS # (AUTO) 0.1 10^3/uL (0.0-0.1); BASOPHILS % (AUTO) 1 % (0-10); EOSINOPHILS # (AUTO) 0.3 10^3/uL (0.0-0.3); EOSINOPHILS % (AUTO) 3 % (0-10); LYMPHOCYTES # (AUTO) 2.9 X 10^3 (1.0-4.0); LYMPHOCYTES % (AUTO) 37 % (12-44); MEAN CORPUSCULAR HEMOGLOBIN 29 PG (25-34); MEAN CORPUSCULAR HGB CONC 33 G/DL (32-36); MEAN CORPUSCULAR VOLUME 87 FL (80-99); MEAN PLATELET VOLUME 10.8 FL (7.4-10.4); MONOCYTES # (AUTO) 1.1 X 10^3 (0.0-1.0); MONOCYTES % (AUTO) 15 % (0-12); NEUTROPHILS # (AUTO) 3.5 X 10^3 (1.8-7.8); NEUTROPHILS % (AUTO) 44 % (42-75); PLATELET COUNT 285 10^3/uL (130-400); RED BLOOD COUNT 4.09 10^6/uL (4.35-5.85); RED CELL DISTRIBUTION WIDTH 13.8 % (10.0-14.5); WHITE BLOOD COUNT 7.8 10^3/uL (4.3-11.0)
[2016-06-29 05:29] LABS: ALANINE AMINOTRANSFERASE 16 U/L (0-55); ANION GAP 9 MMOL/L (5-14); ASPARTATE AMINO TRANSFERASE 17 U/L (5-34); BILIRUBIN,TOTAL 0.4 MG/DL (0.1-1.0); BLOOD UREA NITROGEN 11 MG/DL (7-18); BUN/CREATININE RATIO 10; CALCIUM 8.8 MG/DL (8.5-10.1); CARBON DIOXIDE 32 MMOL/L (21-32); CHLORIDE 102 MMOL/L (98-107); CREATININE SERUM 1.08 MG/DL (0.60-1.30); GFR ESTIMATED > 60; GLUCOSE 278 MG/DL (70-105); SODIUM 143 MMOL/L (135-145); TOTAL PROTEIN 5.7 G/DL (6.4-8.2)
[2016-06-29 06:00] VITALS: BP 118/73
[2016-06-29] MEDS: inSUlin ASPART (NovoLOG) 1 UNIT/0.01 ML (CHARGE PER UNIT) SC SCH ×3 (06:16→16:10)
[2016-06-29] MEDS: RT-ALBUTEROL/IPRATROPIUM 3 ML (DUONEB) VIAL INH SCH ×3 (07:44→19:29)
[2016-06-29] MEDS: RT-ADVAIR HFA 115/21 MCG PER PUFF IH SCH ×2 (07:44→19:29)
--- NOTE | 2016-06-29 08:16 | PM & R (SOAP) Progress Note ---
Subjective Subjective/Events-last exam Patient was seen in his room this AM Patient min assist for transfers.Uses 02 at night to maintain sats >90% Objective Exam Last Set of Vital Signs Vital Signs Date Time Temp Pulse Resp B/P (MAP) Pulse Ox O2 Delivery O2 Flow Rate FiO2 06/29/16 07:45 97 06/29/16 06:00 97.6 93 22 118/73 Nasal Cannula 2.50 Capillary Refill : I&O Intake and Output 06/29/16 00:00 Intake Total 3375 ml Output Total 2775 ml Balance 600 ml Intake Oral 3375 ml Output Urine Total 2775 ml General: Alert, Oriented X3, Cooperative, No Acute Distress HEENT: Atraumatic, PERRLA, EOMI, Mucous Memb Moist/[place] Neck: Supple, No JVD Lungs: Clear to Auscultation Heart: Regular Rate Abdomen: Normal Bowel Sounds, Soft, No Tenderness, Other (Peg tube site clean and dry) Extremities: No Edema Skin: Other (shingles rt posterior shoulder treated with only erythematous area as residual) Neuro: Other (generalized weakness dysphagia) Results Lab Laboratory Tests 06/27/16 17:25: Glucometer 309H 06/27/16 20:49: Glucometer 284H 06/28/16 05:06: Glucometer 254H 06/28/16 11:02: Glucometer 334H 06/28/16 15:48: Glucometer 334H 06/28/16 20:32: Glucometer 239H 06/29/16 05:00: White Blood Count 7.8, Red Blood Count 4.09L, Hemoglobin 11.7L, Hematocrit 35L, Mean Corpuscular Volume 87, Mean Corpuscular Hemoglobin 29, Mean Corpuscular Hemoglobin Concent 33, Red Cell Distribution Width 13.8, Platelet Count 285, Mean Platelet Volume 10.8H, Neutrophils (%) (Auto) 44, Lymphocytes (%) (Auto) 37 , Monocytes (%) (Auto) 15H, Eosinophils (%) (Auto) 3, Basophils (%) (Auto) 1, Neutrophils # (Auto) 3.5, Lymphocytes # (Auto) 2.9, Monocytes # (Auto) 1.1H, Eosinophils # (Auto) 0.3, Basophils # (Auto) 0.1, Sodium Level 143, Potassium Level 3.0L, Chloride Level 102, Carbon Dioxide Level 32, Anion Gap 9, Blood Urea Nitrogen 11, Creatinine 1.08, Estimat Glomerular Filtration Rate > 60, BUN/ Creatinine Ratio 10, Glucose Level 278H, Calcium Level 8.8, Total Bilirubin 0.4 , Aspartate Amino Transf (AST/SGOT) 17, Alanine Aminotransferase (ALT/SGPT) 16, Alkaline Phosphatase 59, Total Protein 5.7L, Albumin 3.0L Assessment/Plan Assessment metabolic encephalopathy improving s/p ARF associated with overmedication improving S/P Peg tube placement DM OOC meds being adjusted by Dr Shrestha HTN controlled Shingles treated Dysphagia on modified diet-ST following Nocturnal 02 use Plan Continue PT/OT/ST F/U with Dr Shrestha et al Monitor Accuchecks and adjust meds as needed Advance diet consistency when ST makes rec Team Conference held yesterday--See report for full functional update and POC and MADINA BLACKBURN MD Jun 29, 2016 08:16
[2016-06-29] MEDS: NICOTINE PATCH REMOVAL TP SCH (08:35)
[2016-06-29] MEDS: NICOTINE 14 MG (NICODERM) PATCH TD SCH (08:35)
[2016-06-29] MEDS: GABAPENTIN 600 MG (NEURONTIN) TAB PO SCH ×3 (08:36→21:36)
[2016-06-29] MEDS: lisINopril 10 MG (PRINIVIL) TAB PO SCH (08:36)
[2016-06-29] MEDS: amLODIPine 10 MG (NORVASC) TAB PO SCH (08:36)
[2016-06-29] MEDS: PANTOPRAZOLE 40 MG (PROTONIX) TAB PO SCH ×2 (08:36→21:36)
--- NOTE | 2016-06-29 10:28 | Physical Therapy Daily Note ---
PT Daily Note-Current Subjective Pt sitting in recliner upon arrival. Pt agrees to PT. Pain Numeric Pain Scale: 5-Moderate Pain Location: Lower, Dorsal Location Body Site: Back Pain Description: Throbbing Comment: LB pain as well as hamstring pain, pt reports Sciatic pain Mental Status Patient Orientation: Person, Place, Time, Situation Transfers Functional [place] Measure 0=Not Assessed/NA 4=Minimal Assistance 1=Total Assistance 5=Supervision or Setup 2=Maximal Assistance 6=Modified [place] 3=Moderate Assistance 7=Complete IndependenceIRFPAI Quality Coding Scale 6 Independent with activity with or without an assistive device 5 Patient requires set up or clean up by helper. Patient completes activity by themselves 4 Supervision or touching assist (CGA). [place] provide cues , steadying assist 3 The helper provides less than half the effort to complete the activity 2 The helper provides more than half the effort to complete the activity 1 Dependent. The helper does all the effort to complete an activity 7 Patient refused to complete or attempt activity 9 The patient did not perform the activity before the current illness or injury 88 Not attempted due to Medical conditions or safety concerns Transfers (B, C, W/C) (FIM): 5 Scootin Sit to/from Stand: 5 Sit to Stand (QC): 5 Weight Bearing Weight Bearing Restriction: Full Weight Bearing Location Restriction: LE Bilateral Gait Training Does the Patient Walk?: Yes Gait (FIM): 5 Distance (FIM): 3=150 ft Distance: 200' Walk 10 feet (QC): 5 Walk 50 ft with 2 Turns(QC): 5 Walk 150 ft (QC): 5 Gait Level of Assist: 5 Gait Persons Needed: 1 Gait Assistive Device: FWW Pt has slow but steady gait, no LOB. PT needs to be close SBA though since pt reports occasional dizziness with positional changes. Exercises Standing: Hip Abduction, Hamstring curls, 3 way Ex=Flex, Abd, Ext, Mini squats Standing Reps: 15 NuStep Minutes: 10 NuStep Workload: 4 Treatments Pt transfers from recliner using FWW at SBA. Pt ambulates using FWW at close SBA for safety. Pt completes NuStep and Standing EX to improve activity tolerance and strength. Pt also ambulates in [facility] before returning to room to use restroom before resting. Pt sit at EOB to rest at end of tx with all needs met. Assessment Current Status: Good Progress Pt is improving with safety and independence of transfers and mobility although PT still needs to be close SBA for positional changes due to dizziness. PT Short Term Goals Short Term Goals Time Frame: Jul 04, 2016 Transfers (B,C,W/C) (FIM): 5 Gait (FIM): 5 Gait Distance Comment: 400' Gait Level of Assist: 5 Gait Assistive Device: FWW PT Residential Goals Advertising Sales Consultant Goals PT Advertising Sales Consultant Goals Time Frame: Jul 18, 2016 Transfers (B,C,W/C) (FIM): 6 Sit to Lying (QC): 6 Lying-Sitting on Side/Bed(QC): 6 Sit to Stand (QC): 6 Rollin Roll Left to Right (QC): 6 Car Transfer (QC): 5 Gait (FIM): 6 Distance: 500' Walk 10 feet (QC): 6 Walk 10ft-Uneven Surface(QC): 6 Walk 50ft with 2 Turns (QC): 6 Walk 150 ft (QC): 6 Gait Assistive Device: FWW Stairs (FIM): 5 # of Steps: 12 1 Step (curb) (QC): 4 4 Steps (QC): 4 12 Steps (QC): 4 Stairs Level Of Assist: 5 Picking up an Object (QC): 4 PT Plan Problem List Problem List: Activity Tolerance, Functional Strength, Safety, Balance, Gait, Transfer Treatment/Plan Treatment Plan: Continue Plan of Care Treatment Plan: Bed Mobility, Education, Functional Activity Imani, Functional Strength, Group Therapy, Gait, Safety, Therapeutic Exercise, Transfers Treatment Duration: Jul 18, 2016 Visits Per Week: 10-11 Minutes/Day (M-F): 60-90 Minutes/Day (Sat/[place]): 15-30 Safety Risks/Education Patient Education: Gait Training, Transfer Techniques, Correct Positioning, Safety Issues Teaching Recipient: Patient Teaching Methods: Discussion Response to Teaching: Verbalize Understanding Time/GCodes Time In: 930 Time Out: 1015 Total Billed Treatment Time: 45 Total Billed Treatment visit, GT (15m), EX X2 (30m) THERON YODER PTA Jun 29, 2016 10:28
--- NOTE | 2016-06-29 10:43 | Progress Note-Hospitalist ---
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 Patient Interview: Pt states he is doing well currently. Pt received a haircut and shaved. Physical exam was stable. Pt states he is using IS. Pt was told his insulin will be adjusted to have better control of his sugars. Scribed by Ricardo Martinez under the direct supervision of Dr. Shrestha. No fever, vital signs stable, pleasant, much improved, recognized me, speaking clearly Regular rate and rhythm, clear to auscultation bilaterally resolved rales No edema Assessment: Altered mental status and hypotension with history of similar event back in 2014 related to acute renal failure and overmedication requiring ICU admit with intubation even though ARF resolved and labs are stable now extubated. MRI negative and LP negative now extubated and only slight improved delirium status s/p tx for sepsis due to pneumonia and could have aspirated water so required PEG tube last Sunday and progressing well now and tx to IRF yesterday and will likely DC PEG soon DM OOC adjusting insulin HTN Shingles resolved Plan: IS Rehab Potassium supp ANGÉLICA SHRESTHA DO Jun 29, 2016 10:43
[2016-06-29] MEDS: KCL 10 MEQ TAB (MICRO K) PO SCH ×2 (11:17→21:36)
[2016-06-29] MEDS: oxyCODONE/APAP 5/325MG (PERCOCET 5) TABLET PO PRN (11:17)
--- NOTE | 2016-06-29 11:46 | Speech Therapy Daily Note ---
Speech Daily Progress Note Subjective The patient was seated upright on the edge of bed upon entrance. The patient greeted the clinician appropriately and agreed to participate in dysphagia therapy on this date. To note: A staff member stated the patient has self-upgraded his liquid consistency to thin liquids. Due to this, the clinician visited with the patient extensively regarding his aspiration risks with thin liquids, the results of his most recent modified barium swallow (resulting in the recommendation of honey-thick liquids), the necessity to continue honey-thick liquids, and swallowing strategies. The patient verbalized comprehension of the material. Objective Dysphagia Exercises: The patient demonstrated good accuracy (approximately 80%) with dysphagia exercises on this date (base of tongue retraction, pharyngeal contraction, and laryngeal elevation). Mild clinician verbal prompting was provided, as well as, an initial model. Ten repetitions of each exercise were performed. Bolus Trials: The patient was reassessed with honey-thick liquids via cup sip on this date. No signs/symptoms of aspiration or laryngeal penetration were demonstrated with 4 ounces of honey-thick liquid. To note: The patient continues to demonstrate an intermittent wet vocal quality in isolation of bolus trials. Assessment Assessment Current Status: Good Progress Treatment Plan Continue Plan of Care Communication Comprehension: 4 Expression: 4 Social Cognition Social Interaction: 5 Problem Solvin Memory: 3 Speech Short Term Goals Short Term Goals Short Term Goals 1. The patient will recall and demonstrate two functional memory strategies with 80% accuracy, independently. 2. The patient will demonstrate safety problem solving (functional) with 80% accuracy, independently. 3. The patient will complete structured executive functioning tasks with 80% accuracy, independently. 4. The patient will demonstrate swallowing strategies with 80% accuracy, independently. Time Frame-STG: Two Weeks Speech Plant Technician Goals Plant Technician Goals 1. The patient will improve cognitive linguistic skills for increased function and safety with ADL's in the least restrictive setting. 2. The patient will tolerate the least restrictive diet without signs/symptoms of aspiration or laryngeal penetration. Time Frame: Four Weeks Comprehension: 5 Expression: 5 Social Interaction: 5 Problem Solvin Memory: 5 Speech-Plan Treatment Plan Speech Therapy Treatment Plan: Continue Plan of Care Continue speech pathology intervention to target improved swallowing safety and functional cognitive skills (memory). Treatment Duration: July 25, 2016 # of days/week Five. Visits Per Week: Five. Minutes/Day (M-F): 30 Rehab Potential: Good Safety Risks/Education Teaching Recipient: Patient Teaching Methods: Demonstration, Handout, Discussion Response to Teaching: Verbalize Understanding, Return Demonstration Education Topics Provided: Dysphagia Exercises, Recommendations, Aspiration Risk with Thin Liquids Time Speech Therapy Time In: 10:15 Speech Therapy Time Out: 10:45 Total Billed Time: 30 Billed Treatment Time 1ELAINE ELIZABETH ST Jun 29, 2016 11:46
--- NOTE | 2016-06-29 15:20 | Physical Therapy Daily Note ---
PT Daily Note-Current Subjective Patient is very agreeable to participate with PT. Pain Numeric Pain Scale: 0-No Pain Location: No Pain Reported Mental Status Patient Orientation: Normal For Age Attachments: PEG Tube Transfers Functional [place] Measure 0=Not Assessed/NA 4=Minimal Assistance 1=Total Assistance 5=Supervision or Setup 2=Maximal Assistance 6=Modified [place] 3=Moderate Assistance 7=Complete IndependenceIRFPAI Quality Coding Scale 6 Independent with activity with or without an assistive device 5 Patient requires set up or clean up by helper. Patient completes activity by themselves 4 Supervision or touching assist (CGA). [place] provide cues , steadying assist 3 The helper provides less than half the effort to complete the activity 2 The helper provides more than half the effort to complete the activity 1 Dependent. The helper does all the effort to complete an activity 7 Patient refused to complete or attempt activity 9 The patient did not perform the activity before the current illness or injury 88 Not attempted due to Medical conditions or safety concerns Transfers (B, C, W/C) (FIM): 5 Scootin Rollin Roll Left to Right (QC): 6 Supine to/from Sit: 6 Sit to/from Stand: 5 Sit to Lying (QC): 5 Sit to Stand (QC): 5 Car Transfer (QC): 5 (simulated car transfer) Gait Training Does the Patient Walk?: Yes Gait (FIM): 5 Distance (FIM): 3=150 ft Distance: 250' x 2 Walk 10 feet (QC): 5 Walk 50 ft with 2 Turns(QC): 5 Walk 150 ft (QC): 5 Gait Level of Assist: 5 Gait Persons Needed: 1 Gait Assistive Device: FWW Exercises NuStep Minutes: 15 (to improve strength and cardiopulmonary function) NuStep Workload: 4 Assessment Patient improving with treatment. PT to continue to increase activity as tolerated by patient. PT Short Term Goals Short Term Goals Time Frame: Jul 04, 2016 Transfers (B,C,W/C) (FIM): 5 Gait (FIM): 5 Gait Distance Comment: 400' Gait Level of Assist: 5 Gait Assistive Device: FWW PT Water Server Goals Water Server Goals PT [facility] Goals Time Frame: Jul 18, 2016 Transfers (B,C,W/C) (FIM): 6 Sit to Lying (QC): 6 Lying-Sitting on Side/Bed(QC): 6 Sit to Stand (QC): 6 Rollin Roll Left to Right (QC): 6 Car Transfer (QC): 5 Gait (FIM): 6 Distance: 500' Walk 10 feet (QC): 6 Walk 10ft-Uneven Surface(QC): 6 Walk 50ft with 2 Turns (QC): 6 Walk 150 ft (QC): 6 Gait Assistive Device: FWW Stairs (FIM): 5 # of Steps: 12 1 Step (curb) (QC): 4 4 Steps (QC): 4 12 Steps (QC): 4 Stairs Level Of Assist: 5 Picking up an Object (QC): 4 PT Plan Treatment/Plan Treatment Plan: Continue Plan of Care Treatment Plan: Bed Mobility, Education, Functional Activity Imani, Functional Strength, Group Therapy, Gait, Safety, Therapeutic Exercise, Transfers Treatment Duration: Jul 18, 2016 Visits Per Week: 10-11 Minutes/Day (M-F): 60-90 Minutes/Day (Sat/[place]): 15-30 Time/GCodes Time In: 1225 Time Out: 1255 Total Billed Treatment Time: 30 Total Billed Treatment 1 visit EX 15 min GT 15 min REMIGIO NDIAYE PT Jun 29, 2016 15:20
--- NOTE | 2016-06-29 15:29 | Occupational Ther Daily Note ---
OT Current Status-Daily Note Subjective No pain reported. Appearance Pt. is in bed. Agrees to shower this date. Mental Status/Objective Patient Orientation: Person, Place Functional [place] Measure 0=Not Assessed/NA 4=Minimal Assistance 1=Total Assistance 5=Supervision or Setup 2=Maximal Assistance 6=Modified [place] 3=Moderate Assistance 7=Complete [place] Attachments: IV, PEG Tube ADL-Treatment Functional [place] Measure 0=Not Assessed/NA 4=Minimal Assistance 1=Total Assistance 5=Supervision or Setup 2=Maximal Assistance 6=Modified [place] 3=Moderate Assistance 7=Complete IndependenceIRFPAI Quality Coding Scale 6 Independent with activity with or without an assistive device 5 Patient requires set up or clean up by helper. Patient completes activity by themselves 4 Supervision or touching assist (CGA). [place] provide cues , steadying assist 3 The helper provides less than half the effort to complete the activity 2 The helper provides more than half the effort to complete the activity 1 Dependent. The helper does all the effort to complete an activity 7 Patient refused to complete or attempt activity 9 The patient did not perform the activity before the current illness or injury 88 Not attempted due to Medical conditions or safety concerns Grooming (FIM): 5 (Pt. able to brush teeth at sink in standing with SBA.) Bathing (FIM): 5 (Pt. is able to shower self with SBA.) Upper Body (FIM): 5 Lower Body Dressing (FIM): 5 (Pt. is able to don socks, slippers, and overalls , as well as depend.) Transfers (B, C, W/C) (FIM): 5 (Pt. is able to ambulate with SBA using walker.) Shower Transfer(FIM): 5 (Pt. is able to transfer into and out of shower with SBA.) Education OT Patient Education: Correct positioning, Modified ADL techniques, Progress toward Goal/Update tx plan, Purpose of tx/functional activities, Reviewed precautions, Rehab process, Transfer techniques Teaching Recipient: Patient Teaching Methods: Demonstration, Discussion Response to Teaching: Verbalize Understanding, Return Demonstration OT Short Term Goals Short Term Goals Time Frame: Jul 04, 2016 Eating(FIM): 7 Grooming(FIM): 5 Bathing(FIM): 5 Upper Body Dressing(FIM): 5 Lower Body Dressing(FIM): 5 Toileting(FIM): 5 Transfers (B,C,W/C) (FIM): 5 Toilet/Commode Transfer(FIM): 5 Shower Transfer(FIM): 5 Additional Short Term Goals: 1-Demonstrate ADL Tasks, 2-Verbalize Understanding , 3-ImproveStrength/Imani 1=Demonstrate adherence to instructed precautions during ADL tasks. 2=Patient will verbalize/demonstrate understanding of assistive devices/ modifications for ADL. 3=Patient will improve strength/tolerance for activity to enable patient to perform ADL's. OT Silver Miner Goals Residential Goals Time Frame: Jul 18, 2016 Eating (FIM): 7 Eating (QC): 6 Groomin Oral Hygiene (QC): 6 Bathing(FIM): 5 Shower/Bathe Self (QC): 5 Upper Body Dressing(FIM): 6 Upper Body Dressing (QC): 6 Lower Body Dressing(FIM): 6 On/Off Footwear (QC): 6 Toileting(FIM): 6 Toileting Hygiene (QC): 6 Transfers (B,C,W/C) (FIM): 6 Toilet/Commode Transfer(FIM): 6 Toilet/Commode Transfer (QC): 6 Shower Transfer(FIM): 5 Comprehension(FIM): 5 Expression (FIM): 5 Social Interaction(FIM): 5 Problem Solving(FIM): 5 Memory(FIM): 5 Additional Goals: 1-Demonstrate ADL Tasks, 2-Verbalize Understanding, 3- ImproveStrength/Imani 1=Demonstrate adherence to instructed precautions during ADL tasks. 2=Patient will verbalize/demonstrate understanding of assistive devices/ modifications for ADL. 3=Patient will improve strength/tolerance for activity to enable patient to perform ADL's. OT Education/Plan Problem List/Assessment Assessment: Decreased Activ Tolerance, Decreased UE Strength, Impaired I ADL's , Impaired Self-Care Skills Discharge Recommendations Plan/Recommendations: Continue POC Therapy D/C Recommendations: Home w/ Family Support, Occupational Therapy Home Care Patient/Family Goals To return home. Treatment Plan/Plan of Care Treatment,Training & Education: Yes Patient would benefit from OT for education, treatment and training to promote independence in ADL's, mobility, safety and/or upper extremity function for ADL' s. Plan of Care: ADL Retraining, Functional Mobility, UE Funct Exercise/Act Treatment Duration: Jul 18, 2016 Visits Per Week: 5-6 Minutes/Day (M-F): 60-90 Minutes/Day (Sat/[place]): PRN Agreement: Yes Rehab Potential: Good Time/GCodes Start Time: 08:30 Stop Time: 09:30 Total Time Billed (hr/min): 60 Billed Treatment Time 1, ADL x 4 GERARD WHITLEY OT Jun 29, 2016 15:29
--- NOTE | 2016-06-29 15:33 | Occupational Ther Daily Note ---
OT Current Status-Daily Note Subjective No pain reported. Appearance Pt. is in room. Agrees to work with OT. Mental Status/Objective Patient Orientation: Person, Place Functional [place] Measure 0=Not Assessed/NA 4=Minimal Assistance 1=Total Assistance 5=Supervision or Setup 2=Maximal Assistance 6=Modified [place] 3=Moderate Assistance 7=Complete [place] Attachments: IV, PEG Tube ADL-Treatment Functional [place] Measure 0=Not Assessed/NA 4=Minimal Assistance 1=Total Assistance 5=Supervision or Setup 2=Maximal Assistance 6=Modified [place] 3=Moderate Assistance 7=Complete IndependenceIRFPAI Quality Coding Scale 6 Independent with activity with or without an assistive device 5 Patient requires set up or clean up by helper. Patient completes activity by themselves 4 Supervision or touching assist (CGA). [place] provide cues , steadying assist 3 The helper provides less than half the effort to complete the activity 2 The helper provides more than half the effort to complete the activity 1 Dependent. The helper does all the effort to complete an activity 7 Patient refused to complete or attempt activity 9 The patient did not perform the activity before the current illness or injury 88 Not attempted due to Medical conditions or safety concerns Pt. has red theraband and red therapy sponge in room. Is able to complete 20 bilateral UE squeezes with sponge, and 3 bilateral UE exercises x 20 reps each with red theraband. Pt. is educated on doing exercises on his own. Tolerated well and states that he has been doing them in room when not in therapy session. Completed tasks to improve overall UE strength for daily tasks such as holding walker in ambulation. Education OT Patient Education: Correct positioning, Exercise program, Progress toward Goal/Update tx plan, Purpose of tx/functional activities, Reviewed precautions, Rehab process Teaching Recipient: Patient Teaching Methods: Demonstration, Discussion Response to Teaching: Verbalize Understanding, Return Demonstration OT Short Term Goals Short Term Goals Time Frame: Jul 04, 2016 Eating(FIM): 7 Grooming(FIM): 5 Bathing(FIM): 5 Upper Body Dressing(FIM): 5 Lower Body Dressing(FIM): 5 Toileting(FIM): 5 Transfers (B,C,W/C) (FIM): 5 Toilet/Commode Transfer(FIM): 5 Shower Transfer(FIM): 5 Additional Short Term Goals: 1-Demonstrate ADL Tasks, 2-Verbalize Understanding , 3-ImproveStrength/Imani 1=Demonstrate adherence to instructed precautions during ADL tasks. 2=Patient will verbalize/demonstrate understanding of assistive devices/ modifications for ADL. 3=Patient will improve strength/tolerance for activity to enable patient to perform ADL's. OT Web Manager Goals Web Manager Goals Time Frame: Jul 18, 2016 Eating (FIM): 7 Eating (QC): 6 Groomin Oral Hygiene (QC): 6 Bathing(FIM): 5 Shower/Bathe Self (QC): 5 Upper Body Dressing(FIM): 6 Upper Body Dressing (QC): 6 Lower Body Dressing(FIM): 6 On/Off Footwear (QC): 6 Toileting(FIM): 6 Toileting Hygiene (QC): 6 Transfers (B,C,W/C) (FIM): 6 Toilet/Commode Transfer(FIM): 6 Toilet/Commode Transfer (QC): 6 Shower Transfer(FIM): 5 Comprehension(FIM): 5 Expression (FIM): 5 Social Interaction(FIM): 5 Problem Solving(FIM): 5 Memory(FIM): 5 Additional Goals: 1-Demonstrate ADL Tasks, 2-Verbalize Understanding, 3- ImproveStrength/Imani 1=Demonstrate adherence to instructed precautions during ADL tasks. 2=Patient will verbalize/demonstrate understanding of assistive devices/ modifications for ADL. 3=Patient will improve strength/tolerance for activity to enable patient to perform ADL's. OT Education/Plan Problem List/Assessment Assessment: Decreased Activ Tolerance, Decreased UE Strength, Impaired I ADL's , Impaired Self-Care Skills Discharge Recommendations Plan/Recommendations: Continue POC Therapy D/C Recommendations: Home w/ Family Support, Occupational Therapy Home Care Patient/Family Goals Pt. would like to return home with family. Treatment Plan/Plan of Care Treatment,Training & Education: Yes Patient would benefit from OT for education, treatment and training to promote independence in ADL's, mobility, safety and/or upper extremity function for ADL' s. Plan of Care: ADL Retraining, Functional Mobility, UE Funct Exercise/Act Treatment Duration: Jul 18, 2016 Visits Per Week: 5-6 Minutes/Day (M-F): 60-90 Minutes/Day (Sat/[place]): PRN Agreement: Yes Rehab Potential: Good Time/GCodes Start Time: 14:45 Stop Time: 15:00 Total Time Billed (hr/min): 15 Billed Treatment Time 1, EX GERARD WHITLEY OT Jun 29, 2016 15:33
[2016-06-29 18:00] VITALS: BP 149/85
[2016-06-29] MEDS: inSUlin DETERMIR 1 UNIT/0.01 ML (LEVEMIR) CHARGE PER UNIT SQ SCH (21:36)
[2016-06-30] MEDS: inSUlin ASPART (NovoLOG) 1 UNIT/0.01 ML (CHARGE PER UNIT) SC SCH ×4 (05:25→18:04)
[2016-06-30 06:00] VITALS: BP 133/82
[2016-06-30] MEDS ORDERED: inSUlin ASPART (NovoLOG) 1 UNIT/0.01 ML (CHARGE PER UNIT) SC SCH (06:00)
[2016-06-30] MEDS: RT-ALBUTEROL/IPRATROPIUM 3 ML (DUONEB) VIAL INH SCH ×3 (07:16→19:17)
[2016-06-30] MEDS: RT-ADVAIR HFA 115/21 MCG PER PUFF IH SCH ×2 (07:16→19:17)
[2016-06-30] MEDS: inSUlin DETERMIR 1 UNIT/0.01 ML (LEVEMIR) CHARGE PER UNIT SQ SCH ×2 (08:47→20:40)
[2016-06-30] MEDS: amLODIPine 10 MG (NORVASC) TAB PO SCH (08:48)
[2016-06-30] MEDS: PANTOPRAZOLE 40 MG (PROTONIX) TAB PO SCH ×2 (08:48→20:24)
[2016-06-30] MEDS: NICOTINE PATCH REMOVAL TP SCH (08:48)
[2016-06-30] MEDS: GABAPENTIN 600 MG (NEURONTIN) TAB PO SCH ×3 (08:48→20:29)
[2016-06-30] MEDS: KCL 10 MEQ TAB (MICRO K) PO SCH ×2 (08:48→20:24)
[2016-06-30] MEDS: NICOTINE 14 MG (NICODERM) PATCH TD SCH (08:48)
[2016-06-30] MEDS: lisINopril 10 MG (PRINIVIL) TAB PO SCH (08:48)
--- NOTE | 2016-06-30 10:05 | Physical Therapy Daily Note ---
PT Daily Note-Current Subjective Patient agrees to PT. Patient reports he desires to return to home soon due to personal issues he needs to address. PT notified therapy supervisor blasting or patient request. Pain Numeric Pain Scale: 0-No Pain Location: No Pain Reported Mental Status Patient Orientation: Normal For Age Attachments: PEG Tube Transfers Functional [place] Measure 0=Not Assessed/NA 4=Minimal Assistance 1=Total Assistance 5=Supervision or Setup 2=Maximal Assistance 6=Modified [place] 3=Moderate Assistance 7=Complete IndependenceIRFPAI Quality Coding Scale 6 Independent with activity with or without an assistive device 5 Patient requires set up or clean up by helper. Patient completes activity by themselves 4 Supervision or touching assist (CGA). [place] provide cues , steadying assist 3 The helper provides less than half the effort to complete the activity 2 The helper provides more than half the effort to complete the activity 1 Dependent. The helper does all the effort to complete an activity 7 Patient refused to complete or attempt activity 9 The patient did not perform the activity before the current illness or injury 88 Not attempted due to Medical conditions or safety concerns Transfers (B, C, W/C) (FIM): 6 Scootin Rollin Roll Left to Right (QC): 6 Supine to/from Sit: 7 Sit to/from Stand: 6 Sit to Lying (QC): 6 Sit to Stand (QC): 6 Car Transfer (QC): 6 (simulated) PT instructed patient and nursing staff that he is safe from a PT standpoint, to be up ad rafa in room and hallway with FWW Gait Training Does the Patient Walk?: Yes Gait (FIM): 6 Distance (FIM): 3=150 ft Distance: 300' x 4 Walk 10 feet (QC): 5 Walk 50 ft with 2 Turns(QC): 5 Walk 150 ft (QC): 5 Walking 10ft/uneven surface-QC: 5 Gait Level of Assist: 6 Gait Assistive Device: FWW safe and functional with FWW with no deviation; Patient has been educated on safety concerns without FWW and patient voices understanding and agrees to use FWW at all time. Wheelchair Training Does the Pt Use a Wheelchair?: No Stair Training Stair Training: Handrails/: 1 handrail Stairs (FIM): 7 #of Steps: 12 1 Step (curb) (QC): 6 4 Steps (QC): 6 12 Steps (QC): 6 Stairs: Pattern: Reciprocal Level of Assist: 7 Balance Picking up an Object (QC): 6 Exercises Standing: Heel/toe raises, 3 way Ex=Flex, Abd, Ext, Mini squats Standing Reps: 25 ( sets with 2# weight) NuStep Minutes: 15 (to improve cardiopulmonary function and strength) NuStep Workload: 6 Assessment Patient is progressing with treatment plan. Patient voices understanding and demonstrates good and appropriate technique with all functional tasks with gross motor skills. Per Dr. Shrestha, PEG tube will be removed prior to patient dismissal to home. PT Short Term Goals Short Term Goals Time Frame: Jul 04, 2016 Transfers (B,C,W/C) (FIM): 5 (met 06/30/16) Gait (FIM): 5 Gait Distance Comment: 400' Gait Level of Assist: 5 (met 06/30/16) Gait Assistive Device: FWW PT Snf Goals Snf Goals PT Assistant Men'S Soccer Coach Goals Time Frame: Jul 18, 2016 Transfers (B,C,W/C) (FIM): 6 Sit to Lying (QC): 6 Lying-Sitting on Side/Bed(QC): 6 Sit to Stand (QC): 6 Rollin Roll Left to Right (QC): 6 Car Transfer (QC): 5 Gait (FIM): 6 Distance: 500' Walk 10 feet (QC): 6 Walk 10ft-Uneven Surface(QC): 6 Walk 50ft with 2 Turns (QC): 6 Walk 150 ft (QC): 6 Gait Assistive Device: FWW Stairs (FIM): 5 # of Steps: 12 1 Step (curb) (QC): 4 4 Steps (QC): 4 12 Steps (QC): 4 Stairs Level Of Assist: 5 Picking up an Object (QC): 4 PT Plan Treatment/Plan Treatment Plan: Continue Plan of Care Treatment Plan: Bed Mobility, Education, Functional Activity Imani, Functional Strength, Group Therapy, Gait, Safety, Therapeutic Exercise, Transfers Treatment Duration: Jul 18, 2016 Visits Per Week: 10-11 Minutes/Day (M-F): 60-90 Minutes/Day (Sat/[place]): 15-30 Safety Risks/Education Patient Education: Gait Training, Safety Issues Teaching Recipient: Patient Teaching Methods: Demonstration, Discussion Response to Teaching: Verbalize Understanding, Return Demonstration Time/GCodes Time In: 900 Time Out: 1000 Total Billed Treatment Time: 60 Total Billed Treatment 1 visit EX x 2 30 min GT x 2 30 min REMIGIO NDIAYE PT Jun 30, 2016 10:05
--- NOTE | 2016-06-30 10:28 | Progress Note-Hospitalist ---
Progress Note Progress Notes/Assess & Plan Date Seen 06/30/16 Diagonsis/Assessment & Plan Dr. San Review: Pt is eating. 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 Pt could be DC today if PEG tube removed. Patient Interview: Pt is ambulating with PT. Pt states he would like to be DC soon. Pt states he has many things at home he needs to get done. Pt will have feeding tube removed. Physical exam was stable. Pt states he will use all the exercises and information he has gained and use that at home. Scribed by Ricardo Martinez under the direct supervision of Dr. Shrestha. No fever, vital signs stable, pleasant, much improved, recognized me, speaking clearly Regular rate and rhythm, clear to auscultation bilaterally resolved rales No edema Assessment: Altered mental status and hypotension with history of similar event back in 2014 related to acute renal failure and overmedication requiring ICU admit with intubation even though ARF resolved and labs are stable now extubated. MRI negative and LP negative now extubated and only slight improved delirium status s/p tx for sepsis due to pneumonia and could have aspirated water so required PEG tube last Sunday and progressing well now and tx to IRF 2 days ago and will DC PEG DM OOC adjusting insulin HTN Shingles resolved Plan: Remove PEG tube He is willing to stay until Sunday than we will discharge Restart all insulin doses he takes at home along with baclofen and other pain medication IS Rehab Potassium supp ANGÉLICA SHRESTHA DO Jun 30, 2016 10:28
--- NOTE | 2016-06-30 12:19 | Occupational Ther Daily Note ---
OT Current Status-Daily Note Subjective Pt in bed, agrees to treatment. Pt states he hopes to go home today. Mental Status/Objective Functional [place] Measure 0=Not Assessed/NA 4=Minimal Assistance 1=Total Assistance 5=Supervision or Setup 2=Maximal Assistance 6=Modified [place] 3=Moderate Assistance 7=Complete [place] ADL-Treatment Pt reports he has already taken a shower and dressed this morning. Pt states he was able to bathe himself after nurse set up everything up. Pt states he retrieved his own clothing and transported them to the restroom. Pt states he dressed himself without assistance. Pt demonstrated ability to doff/don shoes and socks without assistance while seated EOB. Pt sit to stand with modified independence. Gait to restroom with FWW, no LOB noted. Pt demonstrated ability to transfer to toilet with modified independence using grab bar. Later in session pt stood at toilet and completed toileting with modified independence. Pt stood at sink to brush teeth with modified independence. Pt states he has no questions or concerns regarding ADLs or home safety. Functional [place] Measure 0=Not Assessed/NA 4=Minimal Assistance 1=Total Assistance 5=Supervision or Setup 2=Maximal Assistance 6=Modified [place] 3=Moderate Assistance 7=Complete IndependenceIRFPAI Quality Coding Scale 6 Independent with activity with or without an assistive device 5 Patient requires set up or clean up by helper. Patient completes activity by themselves 4 Supervision or touching assist (CGA). [place] provide cues , steadying assist 3 The helper provides less than half the effort to complete the activity 2 The helper provides more than half the effort to complete the activity 1 Dependent. The helper does all the effort to complete an activity 7 Patient refused to complete or attempt activity 9 The patient did not perform the activity before the current illness or injury 88 Not attempted due to Medical conditions or safety concerns Eating (FIM): 7 (Pt reports feeding self, managing containers, and cutting food without assistance.) Eating (QC): 6 Grooming (FIM): 6 Oral Hygiene (QC): 6 Bathing (FIM): 5 Shower/Bathe Self (QC): 5 Upper Body (FIM): 6 Upper Body Dressing (QC): 6 Lower Body Dressing (FIM): 6 Lower Body Dressing (QC): 6 On/Off Footwear (QC): 6 Toileting (FIM): 6 Toileting Hygiene (QC): 6 Toilet/Commode Transfer (FIM): 6 Toilet Transfer (QC): 6 Shower Transfer(FIM): 5 (By pt report.) Other Treatment Pt performed gait to therapy gym with FWW, no LOB noted. Arm bike x10 minutes to increase overall strength and activity tolerance needed for functional tasks. Pt completed activity with steady pace, no rest breaks required. Pt performed two fine motor activities with 1# weights in place to increase strength needed for ADLs and transfers. Pt completed bilateral UE exercises to increase overall strength for ADLs. Pt completed four exercises x20 reps with moderate resistance (red) theraband for shoulder and elbow movements. Rest breaks between exercises. Pt returned to room, sitting in chair with needs met and visitors present after session. OT Short Term Goals Short Term Goals Time Frame: Jul 04, 2016 Eating(FIM): 7 Grooming(FIM): 5 Bathing(FIM): 5 Upper Body Dressing(FIM): 5 Lower Body Dressing(FIM): 5 Toileting(FIM): 5 Transfers (B,C,W/C) (FIM): 5 (met 06/30/16) Toilet/Commode Transfer(FIM): 5 Shower Transfer(FIM): 5 Additional Short Term Goals: 1-Demonstrate ADL Tasks, 2-Verbalize Understanding , 3-ImproveStrength/Imani 1=Demonstrate adherence to instructed precautions during ADL tasks. 2=Patient will verbalize/demonstrate understanding of assistive devices/ modifications for ADL. 3=Patient will improve strength/tolerance for activity to enable patient to perform ADL's. OT Long-Term Goals Long-Term Goals Time Frame: Jul 18, 2016 Eating (FIM): 7 (met 06/30/16) Eating (QC): 6 (6-MET) Groomin (met 06/30/16) Oral Hygiene (QC): 6 (6-MET) Bathing(FIM): 5 (met 06/30/16) Shower/Bathe Self (QC): 5 (5-MET) Upper Body Dressing(FIM): 6 (met 06/30/16) Upper Body Dressing (QC): 6 (6-MET) Lower Body Dressing(FIM): 6 (met 06/30/16) On/Off Footwear (QC): 6 (6-MET) Toileting(FIM): 6 (met 06/30/16) Toileting Hygiene (QC): 6 (6-MET) Transfers (B,C,W/C) (FIM): 6 Toilet/Commode Transfer(FIM): 6 (met 06/30/16) Toilet/Commode Transfer (QC): 6 (6-MET) Shower Transfer(FIM): 5 (met 06/30/16) Comprehension(FIM): 5 Expression (FIM): 5 Social Interaction(FIM): 5 Problem Solving(FIM): 5 Memory(FIM): 5 Additional Goals: 1-Demonstrate ADL Tasks, 2-Verbalize Understanding, 3- ImproveStrength/Imani 1=Demonstrate adherence to instructed precautions during ADL tasks. 2=Patient will verbalize/demonstrate understanding of assistive devices/ modifications for ADL. 3=Patient will improve strength/tolerance for activity to enable patient to perform ADL's. OT Education/Plan Discharge Recommendations Plan/Recommendations: Continue POC Treatment Plan/Plan of Care Patient would benefit from OT for education, treatment and training to promote independence in ADL's, mobility, safety and/or upper extremity function for ADL' s. Plan of Care: ADL Retraining, Functional Mobility, UE Funct Exercise/Act Treatment Duration: Jul 18, 2016 Visits Per Week: 5-6 Minutes/Day (M-F): 60-90 Minutes/Day (Sat/[place]): PRN Agreement: Yes Rehab Potential: Good Time/GCodes Start Time: 11:00 Stop Time: 12:00 Total Time Billed (hr/min): 60 Billed Treatment Time 1 visit, ADL(20minutes), EXx3(40minutes) HAMLET MORRIS OT Jun 30, 2016 12:19
[2016-06-30] MEDS ORDERED: LIDOCAINE 1% INJ 20 ML (XYLOCAINE) VIAL ONE (12:25)
[2016-06-30] MEDS ORDERED: LIDOCAINE 1% INJ 20 ML (XYLOCAINE) VIAL INJ ONE (12:45)
--- NOTE | 2016-06-30 12:50 | Speech Therapy Daily Note ---
Speech Daily Progress Note Subjective Pt asleep upon AMMONIA TECHNICIAN arrival. Pt agreed to therapy and was pleasant and cooperative with all therapy tasks. Objective OMEs completed 7x5 with min cues for correct completion. Memory strategies reviewed with pt, pt appeared with understanding. LING subsection telling time completed with 100% accy, Solving daily math problems LING subsection initiated , with 3/3 correct. Assessment Assessment Current Status: Good Progress Treatment Plan Continue Plan of Care Communication Comprehension: 4 Expression: 5 Social Cognition Social Interaction: 5 Problem Solvin Memory: 3 Speech Short Term Goals Short Term Goals Short Term Goals 1. The patient will recall and demonstrate two functional memory strategies with 80% accuracy, independently. 2. The patient will demonstrate safety problem solving (functional) with 80% accuracy, independently. 3. The patient will complete structured executive functioning tasks with 80% accuracy, independently. 4. The patient will demonstrate swallowing strategies with 80% accuracy, independently. Time Frame-STG: Two Weeks Speech Custodial Goals Custodial Goals 1. The patient will improve cognitive linguistic skills for increased function and safety with ADL's in the least restrictive setting. 2. The patient will tolerate the least restrictive diet without signs/symptoms of aspiration or laryngeal penetration. Time Frame: Four Weeks Comprehension: 5 Expression: 5 Social Interaction: 5 Problem Solvin Memory: 5 Speech-Plan Treatment Plan Speech Therapy Treatment Plan: Continue Plan of Care Treatment Duration: July 25, 2016 Visits Per Week: Five. Minutes/Day (M-F): 30 Rehab Potential: Good Time Speech Therapy Time In: 10:15 Speech Therapy Time Out: 10:48 Billed Treatment Time 33 min 1ANICETO DYST YOUNG, ALISHA ST Jun 30, 2016 12:50
[2016-06-30] MEDS: BACLOFEN 10 MG (LIORESAL) TAB PO SCH ×2 (14:23→20:24)
--- NOTE | 2016-06-30 14:36 | Therapy Group Daily Note ---
Therapy Daily Group Note Patient Education Topic Other List Below Other/Notes Pt was an active participant in OT/PT group. For introductions, he was able to state his name, where he lived and if he had ever been scammed. He contributed to education/discussion with guest speakers from [place] who talked about phone and credit card scams, public safety techniques, home safety, and community services available such as well checks. He walked back to his room with FWW after group, mod I. Start Time: 13:00 Stop Time: 14:15 Total Billed Treatment Time: 75 Total Billed Treatment visit, 75 minutes group RICKIE HAMPTON OT Jun 30, 2016 14:36
--- NOTE | 2016-06-30 15:53 | Progress Note-Standard ---
Standard Progress Note Progress Notes/Assess & Plan Progress/Assessment & Plan doing much better. awake an alert. tolerating liquids and solids without difficulty. g-tube removed without difficulty. 1% lidocaine to skin for anesth. HARVINDER DAMIAN MD Jun 30, 2016 3:53 pm
[2016-06-30] MEDS: TROSPIUM 20 MG (SANCTURA) TAB PO SCH (16:15)
[2016-06-30] MEDS: oxyCODONE/APAP 5/325MG (PERCOCET 5) TABLET PO PRN (16:15)
[2016-06-30 17:20] VITALS: BP 137/79
[2016-07-01] MEDS: oxyCODONE/APAP 5/325MG (PERCOCET 5) TABLET PO PRN ×2 (02:00→11:37)
[2016-07-01 06:00] VITALS: BP 159/81
[2016-07-01] MEDS: TROSPIUM 20 MG (SANCTURA) TAB PO SCH ×2 (06:50→17:16)
[2016-07-01] MEDS: NICOTINE 14 MG (NICODERM) PATCH TD SCH (08:07)
[2016-07-01] MEDS: inSUlin ASPART (NovoLOG) 1 UNIT/0.01 ML (CHARGE PER UNIT) SC SCH ×3 (08:07→17:55)
[2016-07-01] MEDS: BACLOFEN 10 MG (LIORESAL) TAB PO SCH ×3 (08:08→21:29)
[2016-07-01] MEDS: PANTOPRAZOLE 40 MG (PROTONIX) TAB PO SCH ×2 (08:08→21:29)
[2016-07-01] MEDS: NICOTINE PATCH REMOVAL TP SCH (08:08)
[2016-07-01] MEDS: KCL 10 MEQ TAB (MICRO K) PO SCH ×2 (08:08→21:30)
[2016-07-01] MEDS: amLODIPine 10 MG (NORVASC) TAB PO SCH (08:08)
[2016-07-01] MEDS: lisINopril 10 MG (PRINIVIL) TAB PO SCH (08:08)
[2016-07-01] MEDS: GABAPENTIN 600 MG (NEURONTIN) TAB PO SCH ×3 (08:08→21:29)
[2016-07-01] MEDS: inSUlin DETERMIR 1 UNIT/0.01 ML (LEVEMIR) CHARGE PER UNIT SQ SCH ×2 (09:31→21:29)
--- NOTE | 2016-07-01 10:02 | Physical Therapy Daily Note ---
PT Daily Note-Current Subjective Patient states, "I feel rough today. But I will do something." Pain Numeric Pain Scale: 5-Moderate Pain Location: Upper Location Body Site: Abdomen Pain Description: Pressure, Acute Comment: had PEG removed 06/30/16 Mental Status Patient Orientation: Normal For Age Transfers Functional [place] Measure 0=Not Assessed/NA 4=Minimal Assistance 1=Total Assistance 5=Supervision or Setup 2=Maximal Assistance 6=Modified [place] 3=Moderate Assistance 7=Complete IndependenceIRFPAI Quality Coding Scale 6 Independent with activity with or without an assistive device 5 Patient requires set up or clean up by helper. Patient completes activity by themselves 4 Supervision or touching assist (CGA). [place] provide cues , steadying assist 3 The helper provides less than half the effort to complete the activity 2 The helper provides more than half the effort to complete the activity 1 Dependent. The helper does all the effort to complete an activity 7 Patient refused to complete or attempt activity 9 The patient did not perform the activity before the current illness or injury 88 Not attempted due to Medical conditions or safety concerns Transfers (B, C, W/C) (FIM): 6 Scootin Rollin Roll Left to Right (QC): 6 Supine to/from Sit: 6 Sit to/from Stand: 6 Sit to Lying (QC): 6 Sit to Stand (QC): 6 Gait Training Does the Patient Walk?: Yes Gait (FIM): 6 Distance (FIM): 3=150 ft Distance: 400' Walk 10 feet (QC): 5 Walk 50 ft with 2 Turns(QC): 5 Walk 150 ft (QC): 5 Walking 10ft/uneven surface-QC: 5 Gait Level of Assist: 6 Gait Assistive Device: FWW safe and functional Assessment Patient plans to dismiss on Sunday the to home with spouse and home health intervention. Patient instructed to be up ad rafa in room and hallway. PT Short Term Goals Short Term Goals Time Frame: Jul 04, 2016 Transfers (B,C,W/C) (FIM): 5 (met 06/30/16) Gait (FIM): 5 Gait Distance Comment: 400' Gait Level of Assist: 5 (met 06/30/16) Gait Assistive Device: FWW PT Principle Software Engineer Goals Principle Software Engineer Goals PT Principle Software Engineer Goals Time Frame: Jul 18, 2016 Transfers (B,C,W/C) (FIM): 6 Sit to Lying (QC): 6 Lying-Sitting on Side/Bed(QC): 6 Sit to Stand (QC): 6 Rollin Roll Left to Right (QC): 6 Car Transfer (QC): 5 Gait (FIM): 6 Distance: 500' Walk 10 feet (QC): 6 Walk 10ft-Uneven Surface(QC): 6 Walk 50ft with 2 Turns (QC): 6 Walk 150 ft (QC): 6 Gait Assistive Device: FWW Stairs (FIM): 5 # of Steps: 12 1 Step (curb) (QC): 4 4 Steps (QC): 4 12 Steps (QC): 4 Stairs Level Of Assist: 5 Picking up an Object (QC): 4 PT Plan Treatment/Plan Treatment Plan: Continue Plan of Care Treatment Plan: Bed Mobility, Education, Functional Activity Imani, Functional Strength, Group Therapy, Gait, Safety, Therapeutic Exercise, Transfers Treatment Duration: Jul 18, 2016 Visits Per Week: 10-11 Minutes/Day (M-F): 60-90 Minutes/Day (Sat/[place]): 15-30 Time/GCodes Time In: 945 Time Out: 955 Total Billed Treatment Time: 10 Total Billed Treatment 1 visit FA 10 min REMIGIO NDIAYE PT Jul 01, 2016 10:02
[2016-07-01] MEDS: RT-ALBUTEROL/IPRATROPIUM 3 ML (DUONEB) VIAL INH SCH ×4 (11:03→19:41)
[2016-07-01] MEDS: RT-ADVAIR HFA 115/21 MCG PER PUFF IH SCH ×2 (11:04→19:42)
[2016-07-01 18:26] VITALS: BP 138/89
[2016-07-02] MEDS: oxyCODONE/APAP 5/325MG (PERCOCET 5) TABLET PO PRN (02:13)
[2016-07-02 06:15] VITALS: BP 128/71
[2016-07-02] MEDS: TROSPIUM 20 MG (SANCTURA) TAB PO SCH ×2 (06:26→17:22)
[2016-07-02] MEDS: inSUlin ASPART (NovoLOG) 1 UNIT/0.01 ML (CHARGE PER UNIT) SC SCH ×3 (07:04→18:19)
[2016-07-02] MEDS: RT-ADVAIR HFA 115/21 MCG PER PUFF IH SCH ×2 (07:37→20:00)
[2016-07-02] MEDS: RT-ALBUTEROL/IPRATROPIUM 3 ML (DUONEB) VIAL INH SCH ×3 (07:37→20:18)
[2016-07-02] MEDS: lisINopril 10 MG (PRINIVIL) TAB PO SCH (08:51)
[2016-07-02] MEDS: KCL 10 MEQ TAB (MICRO K) PO SCH ×2 (08:51→20:19)
[2016-07-02] MEDS: BACLOFEN 10 MG (LIORESAL) TAB PO SCH ×3 (08:51→20:19)
[2016-07-02] MEDS: amLODIPine 10 MG (NORVASC) TAB PO SCH (08:51)
[2016-07-02] MEDS: NICOTINE PATCH REMOVAL TP SCH (08:51)
[2016-07-02] MEDS: PANTOPRAZOLE 40 MG (PROTONIX) TAB PO SCH ×2 (08:51→20:19)
[2016-07-02] MEDS: GABAPENTIN 600 MG (NEURONTIN) TAB PO SCH ×3 (08:51→20:19)
[2016-07-02] MEDS: NICOTINE 14 MG (NICODERM) PATCH TD SCH (08:52)
[2016-07-02] MEDS: inSUlin DETERMIR 1 UNIT/0.01 ML (LEVEMIR) CHARGE PER UNIT SQ SCH ×2 (08:54→21:05)
[2016-07-02 18:12] VITALS: BP 113/70
[2016-07-03 05:33] VITALS: BP 129/81
[2016-07-03] MEDS: TROSPIUM 20 MG (SANCTURA) TAB PO SCH (05:41)
[2016-07-03] MEDS: inSUlin ASPART (NovoLOG) 1 UNIT/0.01 ML (CHARGE PER UNIT) SC SCH ×2 (06:58→11:33)
[2016-07-03] MEDS: RT-ALBUTEROL/IPRATROPIUM 3 ML (DUONEB) VIAL INH SCH (07:34)
[2016-07-03] MEDS: RT-ADVAIR HFA 115/21 MCG PER PUFF IH SCH (07:34)
[2016-07-03] MEDS: GABAPENTIN 600 MG (NEURONTIN) TAB PO SCH ×2 (07:44→12:10)
[2016-07-03] MEDS: lisINopril 10 MG (PRINIVIL) TAB PO SCH (07:44)
[2016-07-03] MEDS: KCL 10 MEQ TAB (MICRO K) PO SCH (07:44)
[2016-07-03] MEDS: NICOTINE 14 MG (NICODERM) PATCH TD SCH (07:44)
[2016-07-03] MEDS: PANTOPRAZOLE 40 MG (PROTONIX) TAB PO SCH (07:44)
[2016-07-03] MEDS: amLODIPine 10 MG (NORVASC) TAB PO SCH (07:45)
[2016-07-03] MEDS: BACLOFEN 10 MG (LIORESAL) TAB PO SCH ×2 (07:45→12:10)
[2016-07-03] MEDS: NICOTINE PATCH REMOVAL TP SCH (07:45)
[2016-07-03] MEDS: inSUlin DETERMIR 1 UNIT/0.01 ML (LEVEMIR) CHARGE PER UNIT SQ SCH (07:45)
--- NOTE | 2016-07-03 11:03 | Occupational Ther Daily Note ---
OT Current Status-Daily Note Subjective No pain reported. Pt. states that he is ready to go today. Appearance Pt. already dressed. Had dressed himself. Agrees to shower though and re- dress. Mental Status/Objective Patient Orientation: Person, Place Functional [place] Measure 0=Not Assessed/NA 4=Minimal Assistance 1=Total Assistance 5=Supervision or Setup 2=Maximal Assistance 6=Modified [place] 3=Moderate Assistance 7=Complete [place] ADL-Treatment Functional [place] Measure 0=Not Assessed/NA 4=Minimal Assistance 1=Total Assistance 5=Supervision or Setup 2=Maximal Assistance 6=Modified [place] 3=Moderate Assistance 7=Complete IndependenceIRFPAI Quality Coding Scale 6 Independent with activity with or without an assistive device 5 Patient requires set up or clean up by helper. Patient completes activity by themselves 4 Supervision or touching assist (CGA). [place] provide cues , steadying assist 3 The helper provides less than half the effort to complete the activity 2 The helper provides more than half the effort to complete the activity 1 Dependent. The helper does all the effort to complete an activity 7 Patient refused to complete or attempt activity 9 The patient did not perform the activity before the current illness or injury 88 Not attempted due to Medical conditions or safety concerns Eating (FIM): 7 Eating (QC): 6 Grooming (FIM): 7 Oral Hygiene (QC): 6 Bathing (FIM): 6 Shower/Bathe Self (QC): 6 Upper Body (FIM): 7 Upper Body Dressing (QC): 6 Lower Body Dressing (FIM): 7 Lower Body Dressing (QC): 6 On/Off Footwear (QC): 6 Toileting (FIM): 7 Toileting Hygiene (QC): 6 Transfers (B, C, W/C) (FIM): 7 Toilet/Commode Transfer (FIM): 7 Toilet Transfer (QC): 6 Shower Transfer(FIM): 6 Other Treatment Pt. completed ADL tasks this morning with complete independence. Pt. not using walker this morning. Did utilize shower chair when in shower, but that was the only equipment he used. Pt. able to doff/don compression socks, underwear, shirt, overalls, and boots. Pt. plans to discharge today. Education OT Patient Education: Modified ADL techniques, Progress toward Goal/Update tx plan, Purpose of tx/functional activities, Reviewed precautions, Rehab process, Transfer techniques Teaching Recipient: Patient Teaching Methods: Demonstration, Discussion Response to Teaching: Verbalize Understanding, Return Demonstration OT Short Term Goals Short Term Goals Time Frame: Jul 04, 2016 Eating(FIM): 7 Grooming(FIM): 5 Bathing(FIM): 5 Upper Body Dressing(FIM): 5 Lower Body Dressing(FIM): 5 Toileting(FIM): 5 Transfers (B,C,W/C) (FIM): 5 (met 06/30/16) Toilet/Commode Transfer(FIM): 5 Shower Transfer(FIM): 5 Additional Short Term Goals: 1-Demonstrate ADL Tasks, 2-Verbalize Understanding , 3-ImproveStrength/Imani 1=Demonstrate adherence to instructed precautions during ADL tasks. 2=Patient will verbalize/demonstrate understanding of assistive devices/ modifications for ADL. 3=Patient will improve strength/tolerance for activity to enable patient to perform ADL's. OT Heating Element Repairer Goals Detention Goals Time Frame: Jul 18, 2016 Eating (FIM): 7 (met 06/30/16) Eating (QC): 6 (6-MET) Groomin (met 06/30/16) Oral Hygiene (QC): 6 (6-MET) Bathing(FIM): 5 (met 06/30/16) Shower/Bathe Self (QC): 5 (5-MET) Upper Body Dressing(FIM): 6 (met 06/30/16) Upper Body Dressing (QC): 6 (6-MET) Lower Body Dressing(FIM): 6 (met 06/30/16) On/Off Footwear (QC): 6 (6-MET) Toileting(FIM): 6 (met 06/30/16) Toileting Hygiene (QC): 6 (6-MET) Transfers (B,C,W/C) (FIM): 6 Toilet/Commode Transfer(FIM): 6 (met 06/30/16) Toilet/Commode Transfer (QC): 6 (6-MET) Shower Transfer(FIM): 5 (met 06/30/16) Comprehension(FIM): 5 Expression (FIM): 5 Social Interaction(FIM): 5 Problem Solving(FIM): 5 Memory(FIM): 5 Additional Goals: 1-Demonstrate ADL Tasks, 2-Verbalize Understanding, 3- ImproveStrength/Imani 1=Demonstrate adherence to instructed precautions during ADL tasks. 2=Patient will verbalize/demonstrate understanding of assistive devices/ modifications for ADL. 3=Patient will improve strength/tolerance for activity to enable patient to perform ADL's. OT Education/Plan Discharge Recommendations Plan/Recommendations: Discharge/Goals Met Therapy D/C Recommendations: Home w/ Family Support Equpiment Recommendations-D/C: Bath Chair Treatment Plan/Plan of Care Treatment,Training & Education: Yes Plan of Care: ADL Retraining, Functional Mobility, UE Funct Exercise/Act Treatment Duration: Jul 18, 2016 Visits Per Week: 5-6 Minutes/Day (M-F): 60-90 Minutes/Day (Sat/[place]): PRN Agreement: Yes Rehab Potential: Good Time/GCodes Start Time: 09:15 Stop Time: 10:00 Total Time Billed (hr/min): 45 Billed Treatment Time 1, ADL x 3 GERARD WHITLEY OT Jul 03, 2016 11:03
--- NOTE | 2016-07-03 11:41 | Physical Therapy Daily Note ---
PT Daily Note-Current Subjective Patient states he is very excited to return to home on this date. Pain Numeric Pain Scale: 0-No Pain Location: No Pain Reported Mental Status Patient Orientation: Normal For Age Transfers Functional [place] Measure 0=Not Assessed/NA 4=Minimal Assistance 1=Total Assistance 5=Supervision or Setup 2=Maximal Assistance 6=Modified [place] 3=Moderate Assistance 7=Complete IndependenceIRFPAI Quality Coding Scale 6 Independent with activity with or without an assistive device 5 Patient requires set up or clean up by helper. Patient completes activity by themselves 4 Supervision or touching assist (CGA). [place] provide cues , steadying assist 3 The helper provides less than half the effort to complete the activity 2 The helper provides more than half the effort to complete the activity 1 Dependent. The helper does all the effort to complete an activity 7 Patient refused to complete or attempt activity 9 The patient did not perform the activity before the current illness or injury 88 Not attempted due to Medical conditions or safety concerns Transfers (B, C, W/C) (FIM): 6 Scootin Rollin Roll Left to Right (QC): 6 Supine to/from Sit: 6 Sit to/from Stand: 6 Sit to Lying (QC): 5 Sit to Stand (QC): 5 Chair/Gvv-[id number] Xfer(QC): 5 Bed to/from Chair: 6 Car Transfer (QC): 5 Gait Training Does the Patient Walk?: Yes Gait (FIM): 6 Distance (FIM): 3=150 ft Distance: 500' Walk 10 feet (QC): 5 Walk 50 ft with 2 Turns(QC): 5 Walk 150 ft (QC): 5 Walking 10ft/uneven surface-QC: 5 Gait Level of Assist: 6 Gait Assistive Device: FWW safe and functional with FWW Stair Training Stair Training: Handrails/: 1 handrail Stairs (FIM): 6 #of Steps: 12 1 Step (curb) (QC): 5 4 Steps (QC): 5 12 Steps (QC): 5 Stairs: Pattern: Reciprocal Level of Assist: 6 Balance Picking up an Object (QC): 5 Treatments RT performed 6 min O2 test during PT treatment. Refer to RT notes for results. Assessment Patient has attained all functional goals and will safely dismiss to home with family on this date. PT Short Term Goals Short Term Goals Time Frame: Jul 04, 2016 Transfers (B,C,W/C) (FIM): 5 (met 06/30/16) Gait (FIM): 5 Gait Distance Comment: 400' Gait Level of Assist: 5 (met 06/30/16) Gait Assistive Device: FWW PT Longterm Goals Speech Language Pathologist Prn Goals PT Longterm Goals Time Frame: Jul 18, 2016 Transfers (B,C,W/C) (FIM): 6 Sit to Lying (QC): 6 Lying-Sitting on Side/Bed(QC): 6 Sit to Stand (QC): 6 Rollin Roll Left to Right (QC): 6 Car Transfer (QC): 5 Gait (FIM): 6 Distance: 500' Walk 10 feet (QC): 6 Walk 10ft-Uneven Surface(QC): 6 Walk 50ft with 2 Turns (QC): 6 Walk 150 ft (QC): 6 Gait Assistive Device: FWW Stairs (FIM): 5 # of Steps: 12 1 Step (curb) (QC): 4 4 Steps (QC): 4 12 Steps (QC): 4 Stairs Level Of Assist: 5 Picking up an Object (QC): 4 PT Plan Treatment/Plan Treatment Plan: Discontinue PT, goals met Treatment Plan: Bed Mobility, Education, Functional Activity Imani, Functional Strength, Group Therapy, Gait, Safety, Therapeutic Exercise, Transfers Treatment Duration: Jul 18, 2016 Visits Per Week: 10-11 Minutes/Day (M-F): 60-90 Minutes/Day (Sat/[place]): 15-30 Time/GCodes Time In: 1120 Time Out: 1130 Total Billed Treatment Time: 10 Total Billed Treatment 1 visit FA 10 min REMIGIO NDIAYE PT Jul 03, 2016 11:40
--- NOTE | 2016-07-03 11:46 | Therapy Team Discharge Summary ---
Therapy Discharge Summary Discharge Recommendations Date of Discharge Therapy D/C Recommendations: Home w/ Family Support Physical Therapy Patient to dismiss to home on this date with functional goals addressed and functionally met. Patient presented to ARU with minimal assist for bed mobility and transfers and decreased functional strength. Patient actively participate with treatment program and is now able to perform all functional mobility at a modified independent LOF. Home Health nursing to follow per report. PT Half-Way Goals Half-Way Goals PT Apparel Patternmaker Goals Time Frame: Jul 18, 2016 Transfers (B,C,W/C) (FIM): 6 (met 07/03/16) Roll Left to Right (QC): 6 (attained 5) Sit to Lying (QC): 6 (attained 5) Lying-Sitting on Side/Bed(QC): 6 (attained 5) Sit to Stand (QC): 6 (attained 5) Car Transfer (QC): 5 (met 07/03/16) Gait (FIM): 6 Distance: 500' Walk 10 feet (QC): 6 Walk 10ft-Uneven Surface(QC): 6 Walk 50ft with 2 Turns (QC): 6 Walk 150 ft (QC): 6 Gait Assistive Device: FWW Stairs (FIM): 5 (met 07/03/16) # of Steps: 12 (met 07/03/16) 1 Step (curb) (QC): 4 (met 07/03/16) 4 Steps (QC): 4 () 12 Steps (QC): 4 (met 07/03/16) Stairs Level Of Assist: 5 (met 07/03/16) Picking up an Object (QC): 4 (met 07/03/16) OT Apparel Patternmaker Goals Apparel Patternmaker Goals Time Frame: Jul 18, 2016 Eating (FIM): 7 (met 06/30/16) Eating (QC): 6 (6-MET) Oral Hygiene (QC): 6 (6-MET) Grooming(FIM): 6 (met 06/30/16) Bathing(FIM): 5 (met 06/30/16) Shower/Bathe Self (QC): 5 (5-MET) Upper Body Dressing(FIM): 6 (met 06/30/16) Upper Body Dressing (QC): 6 (6-MET) Lower Body Dressing(FIM): 6 (met 06/30/16) On/Off Footwear (QC): 6 (6-MET) Toileting(FIM): 6 (met 06/30/16) Toileting Hygiene (QC): 6 (6-MET) Transfers (B,C,W/C) (FIM): 6 Toilet/Commode Transfer(FIM): 6 (met 06/30/16) Toilet/Commode Transfer (QC): 6 (6-MET) Shower Transfer(FIM): 5 (met 06/30/16) Comprehension(FIM): 5 Expression (FIM): 5 Social Interaction(FIM): 5 Problem Solving(FIM): 5 Memory(FIM): 5 Additional Goals: 1-Demonstrate ADL Tasks, 2-Verbalize Understanding, 3- ImproveStrength/Imani 1=Demonstrate adherence to instructed precautions during ADL tasks. 2=Patient will verbalize/demonstrate understanding of assistive devices/ modifications for ADL. 3=Patient will improve strength/tolerance for activity to enable patient to perform ADL's. Speech Half-Way Goals Half-Way Goals 1. The patient will improve cognitive linguistic skills for increased function and safety with ADL's in the least restrictive setting. 2. The patient will tolerate the least restrictive diet without signs/symptoms of aspiration or laryngeal penetration. Time Frame: Four Weeks Comprehension: 5 Expression: 5 Social Interaction: 5 Problem Solvin Memory: 5 REMIGIO NDIAYE PT Jul 03, 2016 11:46
[2016-07-03] MEDS: oxyCODONE/APAP 5/325MG (PERCOCET 5) TABLET PO PRN (12:08)
--- NOTE | 2016-07-03 12:28 | Therapy Daily FIM Scores ---
Therapy Daily FIM Scores Communication Comprehension: 4 Expression: 5 Social Cognition Social Interaction: 5 Problem Solvin Memory: 3 SABRINA KRAUSE Jul 03, 2016 12:28
--- NOTE | 2016-07-03 13:26 | Therapy Team Discharge Summary ---
Therapy Discharge Summary Discharge Recommendations Date of Discharge Therapy D/C Recommendations: Home w/ Family Support Occupational Therapy Pt. has been seen by occupational therapy to increase overall strength and independence with daily tasks. Pt. has met all goals, and in fact exceeded them , as he did not require equipment this date for dressing. Able to shower with Mod I using shower chair. Pt. plans to discharge home with assist of his spouse. Tolerated treatment well while in the hospital. All needs were met before discharge home. No further OT warranted at this time. PT [facility] Goals [facility] Goals PT Satellite Installation Technician Goals Time Frame: Jul 18, 2016 Transfers (B,C,W/C) (FIM): 6 (met 07/03/16) Roll Left to Right (QC): 6 (attained 5) Sit to Lying (QC): 6 (attained 5) Lying-Sitting on Side/Bed(QC): 6 (attained 5) Sit to Stand (QC): 6 (attained 5) Car Transfer (QC): 5 (met 07/03/16) Gait (FIM): 6 Distance: 500' Walk 10 feet (QC): 6 Walk 10ft-Uneven Surface(QC): 6 Walk 50ft with 2 Turns (QC): 6 Walk 150 ft (QC): 6 Gait Assistive Device: FWW Stairs (FIM): 5 (met 07/03/16) # of Steps: 12 (met 07/03/16) 1 Step (curb) (QC): 4 (met 07/03/16) 4 Steps (QC): 4 (met ) 12 Steps (QC): 4 (met 07/03/16) Stairs Level Of Assist: 5 (met 07/03/16) Picking up an Object (QC): 4 (met 07/03/16) OT [facility] Goals Satellite Installation Technician Goals Time Frame: Jul 18, 2016 Eating (FIM): 7 (met 06/30/16) Eating (QC): 6 (6-MET) Oral Hygiene (QC): 6 (6-MET) Grooming(FIM): 6 (met 06/30/16) Bathing(FIM): 5 (met 06/30/16) Shower/Bathe Self (QC): 5 (5-MET) Upper Body Dressing(FIM): 6 (met 06/30/16) Upper Body Dressing (QC): 6 (6-MET) Lower Body Dressing(FIM): 6 (met 06/30/16) On/Off Footwear (QC): 6 (6-MET) Toileting(FIM): 6 (met 06/30/16) Toileting Hygiene (QC): 6 (6-MET) Transfers (B,C,W/C) (FIM): 6 (met) Toilet/Commode Transfer(FIM): 6 (met 06/30/16) Toilet/Commode Transfer (QC): 6 (6-MET) Shower Transfer(FIM): 5 (met 06/30/16) Comprehension(FIM): 5 Expression (FIM): 5 Social Interaction(FIM): 5 Problem Solving(FIM): 5 Memory(FIM): 5 Additional Goals: 1-Demonstrate ADL Tasks, 2-Verbalize Understanding, 3- ImproveStrength/Imani 1=Demonstrate adherence to instructed precautions during ADL tasks. 2=Patient will verbalize/demonstrate understanding of assistive devices/ modifications for ADL. 3=Patient will improve strength/tolerance for activity to enable patient to perform ADL's. Speech Satellite Installation Technician Goals [facility] Goals 1. The patient will improve cognitive linguistic skills for increased function and safety with ADL's in the least restrictive setting. 2. The patient will tolerate the least restrictive diet without signs/symptoms of aspiration or laryngeal penetration. Time Frame: Four Weeks Comprehension: 5 Expression: 5 Social Interaction: 5 Problem Solvin Memory: 5 GERARD WHITLEY OT Jul 03, 2016 13:26
[2016-07-03 14:48] VITALS: BP 129/81
--- NOTE | 2016-07-04 14:29 | Therapy Team Discharge Summary ---
Therapy Discharge Summary Discharge Recommendations Date of Discharge Jul 03, 2016 at 14:45 Therapy D/C Recommendations: Home w/ Family Support Speech-Language Pathology The patient was recently admitted to [facility] following metabolic encephalopathy. Upon admission, the patient demonstrated mild cognitive deficits and moderate oropharyngeal dysphagia. A video swallow completed throughout the patient's stay recommended a diet of puree consistencies with honey-thick liquid. Skilled speech pathology focused on functional memory strategies, swallowing strategies and maneuvers, and pharyngeal strengthening exercises. The patient met goals placed by speech pathology throughout his stay. Speech pathology recommends continued speech services post discharge to focus on continued swallowing safety. PT Creative Perfumer Goals Creative Perfumer Goals PT Creative Perfumer Goals Time Frame: Jul 18, 2016 Transfers (B,C,W/C) (FIM): 6 (met 07/03/16) Roll Left to Right (QC): 6 (attained 5) Sit to Lying (QC): 6 (attained 5) Lying-Sitting on Side/Bed(QC): 6 (attained 5) Sit to Stand (QC): 6 (attained 5) Car Transfer (QC): 5 (met 07/03/16) Gait (FIM): 6 Distance: 500' Walk 10 feet (QC): 6 Walk 10ft-Uneven Surface(QC): 6 Walk 50ft with 2 Turns (QC): 6 Walk 150 ft (QC): 6 Gait Assistive Device: FWW Stairs (FIM): 5 (met 07/03/16) # of Steps: 12 (met 07/03/16) 1 Step (curb) (QC): 4 (met 07/03/16) 4 Steps (QC): 4 () 12 Steps (QC): 4 (met 07/03/16) Stairs Level Of Assist: 5 (met 07/03/16) Picking up an Object (QC): 4 (met 07/03/16) OT Creative Perfumer Goals Nursing Home Goals Time Frame: Jul 18, 2016 Eating (FIM): 7 (met 06/30/16) Eating (QC): 6 (6-MET) Oral Hygiene (QC): 6 (6-MET) Grooming(FIM): 6 (met 06/30/16) Bathing(FIM): 5 (met 06/30/16) Shower/Bathe Self (QC): 5 (5-MET) Upper Body Dressing(FIM): 6 (met 06/30/16) Upper Body Dressing (QC): 6 (6-MET) Lower Body Dressing(FIM): 6 (met 06/30/16) On/Off Footwear (QC): 6 (6-MET) Toileting(FIM): 6 (met 06/30/16) Toileting Hygiene (QC): 6 (6-MET) Transfers (B,C,W/C) (FIM): 6 (met) Toilet/Commode Transfer(FIM): 6 (met 06/30/16) Toilet/Commode Transfer (QC): 6 (6-MET) Shower Transfer(FIM): 5 (met 06/30/16) Comprehension(FIM): 5 Expression (FIM): 5 Social Interaction(FIM): 5 Problem Solving(FIM): 5 Memory(FIM): 5 Additional Goals: 1-Demonstrate ADL Tasks, 2-Verbalize Understanding, 3- ImproveStrength/Imani 1=Demonstrate adherence to instructed precautions during ADL tasks. 2=Patient will verbalize/demonstrate understanding of assistive devices/ modifications for ADL. 3=Patient will improve strength/tolerance for activity to enable patient to perform ADL's. Speech Nursing Home Goals Creative Perfumer Goals 1. The patient will improve cognitive linguistic skills for increased function and safety with ADL's in the least restrictive setting. 2. The patient will tolerate the least restrictive diet without signs/symptoms of aspiration or laryngeal penetration. Time Frame: Four Weeks Comprehension: 5 (MET) Expression: 5 (MET) Social Interaction: 5 (MET) Problem Solvin (MET) Memory: 5 (MET) CHRISTIANO HEWITT Jul 04, 2016 14:28
== END 2016-07-03 14:45 | disposition home health service (06) | DRG 71 ==
PROVIDERS: ADMIT Physical Medicine & Rehabilitation; ATTEND Physical Medicine & Rehabilitation
DX: G93.41 Metabolic encephalopathy (principal); N17.9 Acute kidney failure, unspecified; R13.10 Dysphagia, unspecified; I10 Essential (primary) hypertension; M54.5 Low back pain; F17.210 Nicotine dependence, cigarettes, uncomplicated; E11.65 Type 2 diabetes mellitus with hyperglycemia; Z79.4 Long term (current) use of insulin; Z93.1 Gastrostomy status
CPT/HCPCS: 36415; 80053; 82962; 85025; 94640; 94664; 94760; 94761

== ENCOUNTER 2017-02-03 20:56 | Inpatient (IN) | payer MEDICARE, MEDICAID ==
[~2017-02-03] VITALS: Ht 182.9 cm; Wt 123.4 kg
[~2017-02-03 20:56] MED LIST changes: +NALOXONE 2 MG/2 ML (NARCAN) SYR ONE
[2017-02-03 21:28] LABS: BASOPHILS % (AUTO) 0 % (0-10); EOSINOPHILS # (AUTO) 0.5 10^3/uL (0.0-0.3); EOSINOPHILS % (AUTO) 4 % (0-10); LYMPHOCYTES # (AUTO) 1.4 X 10^3 (1.0-4.0); LYMPHOCYTES % (AUTO) 11 % (12-44); MEAN CORPUSCULAR HEMOGLOBIN 30 PG (25-34); MEAN CORPUSCULAR HGB CONC 33 G/DL (32-36); MEAN CORPUSCULAR VOLUME 89 FL (80-99); MONOCYTES # (AUTO) 1.1 X 10^3 (0.0-1.0); MONOCYTES % (AUTO) 9 % (0-12); NEUTROPHILS # (AUTO) 9.6 X 10^3 (1.8-7.8); NEUTROPHILS % (AUTO) 77 % (42-75); RED BLOOD COUNT 4.69 10^6/uL (4.35-5.85); RED CELL DISTRIBUTION WIDTH 13.7 % (10.0-14.5); WHITE BLOOD COUNT 12.6 10^3/uL (4.3-11.0)
--- NOTE | 2017-02-03 21:34 | Diagnostic Imaging Report ---
INDICATION: Altered mental status. CT HEAD: Multiple contiguous axial CT images of the head were obtained. FINDINGS: Ventricles and sulci are within normal limits for size. There is no intracranial hemorrhage identified. There is no abnormal mass effect or shift of midline structures. IMPRESSION: Unremarkable CT of the head. Dictated by: Dictated on workstation # [id number]
[2017-02-03] MEDS ORDERED: NS IV 1000 ML 1,000 ML IV ONE (21:46)
--- NOTE | 2017-02-03 21:46 | ED Neurological Problem ---
General Chief Complaint: Altered Mental Status Stated Complaint: AMS Nursing Triage Note: PT TO ED 6 PER EMS FOR C/O ALTERED MENTAL STATUS/UNRESPONSIVE ONSET TODAY AFTER CUTTING WOOD FOR 3 DAYS. PER EMS, PT CAME HOME AT 1630, WAS PALE, DIAPHORETIC, WENT TO TAKE A NAP ET THE FAMILY REPORTED PT WOULD NOT WAKE UP AFTER 2 HRS. PER EMS, NARCAN WAS ADMINISTERED ENROUTE ET PT BECAME COMBATIVE AT THAT TIME. PT PRESENTLY RESPONSIVE TO VERBAL STIMULI W/ NODS OF THE HEAD ET GRUNTS. NO OTHER C/O VOICED Nursing Sepsis Screen: No Definite Risk Source: patient, family, EMS Exam Limitations: no limitations History of Present Illness Time seen by provider: 21:00 Initial Comments This 61-year-old gentleman is brought to the emergency room via EMS after his significant other could not arouse him from sleep. He had been out cutting wood for the past 3 days. He returned home between 16:00 and 17:00. He was pale and feeling weak at that time. He presumed to have low blood sugar as he is diabetic. He drank orange juice and ate a sandwich and then laid down. After that his significant other was not able to arouse him. Patient has a history of similar episodes when he has had renal failure and sepsis. Fingerstick blood sugar for EMS was 167. I spoke with the patient's girlfriend , Rachel, by phone. She reports that he had been cutting wood for the past 3 days and was drinking large amounts of soda. She reports that she checked his blood sugar when she was having difficulty arousing him and it read "high". She gave him a bolus dose of insulin. She reports blood sugars thereafter were labile but were not low. She also checked his oxygen saturation with a home pulse oximeter. She reports his O2 sats dropped down to 74 percent at one point and that triggered her call to EMS. During patient's prior episodes his symptoms were so severe that he even required intubation and a PEG tube in May of this year. He had aspiration pneumonia at that time. Upon arrival patient is arousable but extremely somnolent. He will answer questions by voice but his answers are dulled and delayed. He will move all 4 extremities when strongly encouraged. History is provided largely by patient's sister who is present with him and his significant other Rachel who was contacted at . EMS noted patient takes oxycodone. They gave him 2 mg of Narcan which did improve his mentation somewhat. However, he did become a little combative after Narcan. He became somnolent again for EMS after that. Allergies and Home Medications Allergies Coded Allergies: No Known Drug Allergies (Unverified , 12/09/14) Home Medications Amlodipine Besylate 5 Mg Tablet, 10 MG PO DAILY for 30 Days Prescribed by: ANGÉLICA DAVIS on 06/27/16912 Fluticasone/Salmeterol 12 Gm Hfa.aer.ad, 0 PUFF IH BID@08,20 for 30 Days Prescribed by: ANGÉLICA DAVIS on 06/27/16912 Gabapentin 600 Mg Tablet, 600 MG PO TID, (Reported) Insulin Regular, Human 1,000 Units/10 Ml Soln, 0 UNIT SC ACHS for 30 Days Prescribed by: ANGÉLICA DAVIS on 06/27/16912 Ipratropium/Albuterol Sulfate 3 Ml Ampul.neb, 3 ML INH RTQID for 30 Days Prescribed by: ANGÉLICA DAVIS on 06/27/16912 Lisinopril 10 Mg Tablet, 10 MG PO DAILY for 30 Days Prescribed by: ANGÉLICA DAVIS on 06/27/16912 Constitutional: see HPI Eyes: No Symptoms Reported Ears, Nose, Mouth, Throat: no symptoms reported Respiratory: no symptoms reported Cardiovascular: no symptoms reported Gastrointestinal: no symptoms reported Genitourinary: no symptoms reported Musculoskeletal: no symptoms reported Skin: no symptoms reported Psychiatric/Neurological: See HPI Endocrine: No Symptoms Reported Past Hhxeigk-Dbptoc-Hfjnni Hx Patient Social History Alcohol Use: Denies Use Recreational Drug Use: No Smoking Status: Former Smoker Type Used: Cigarettes, Smokeless Tobacco Former Smoker, Quit: Jan 26, 2015 Recent Foreign Travel: No Contact w/Someone Who Travel: No Recent Infectious Disease Expo: No Recent Hopitalizations: No Physical Abuse: No Sexual Abuse: No Mistreated: No Fear: No Surgeries History of Surgeries: Yes (L SHOULDER, R ANKLE, PENILE IMPLANT, ) Respiratory History of Respiratory Disorde: Yes (oxygen at HS, prn during the day) Respiratory Disorders: COPD Cardiovascular History of Cardiac Disorders: Yes Cardiac Disorders: Hypertension Neurological History of Neurological Disord: Yes Neurological Disorders: Neuropathy Reproductive System Hx Reproductive Disorders: Yes (ARTIFICAL TESTICLE, ) Genitourinary History of Genitourinary Disor: Yes Genitourinary Disorders: Renal Failure Gastrointestinal History of Gastrointestinal Di: No Musculoskeletal History of Musculoskeletal Dis: Yes Musculoskeletal Disorders: Arthritis, Chronic Back Pain Endocrine History of Endocrine Disorders: Yes Endocrine Disorders: Diabetes, Insulin dep Cancer History of Cancer: No Psychosocial History of Psychiatric Problem: No Suicide Risk Score: 0 Integumentary History of Skin or Integumenta: No Blood Transfusions History of Blood Disorders: No Adverse Reaction to a Blood Tr: No Family Medical History Significant Family History: No Pertinent Family Hx Family Medial History: Diabetes mellitus 19 MOTHER G8 SISTER Hypertension 19 FATHER 19 MOTHER Myocardial infarction 19 FATHER (STROKES) Physical Exam Vital Signs Vital Sign - Last 12Hours 02/03/17 20:58 Temp 96.5 Pulse 110 Resp 18 B/P (MAP) 142/98 Pulse Ox 95 O2 Delivery Room Air Capillary Refill : Less Than 3 Seconds General Appearance: WD/WN, no apparent distress HEENT: PERRL/EOMI, normal ENT inspection Neck: normal inspection Respiratory: lungs clear, normal breath sounds, no respiratory distress, no accessory muscle use Cardiovascular: regular rate, rhythm, no edema, no murmur Gastrointestinal: normal bowel sounds, non tender, soft Focused Exam Evaluation Lactate Level Laboratory Tests 02/03/17 22:17: Lactic Acid Level 1.14 Lactic Acid Level Laboratory Tests Test 02/03/17 22:17 Lactic Acid Level 1.14 MMOL/L (0.50-2.00) Progress/Results/Core Measures Results/Orders Lab Results Laboratory Tests Test 02/03/17 21:04 02/03/17 21:23 02/03/17 21:44 02/03/17 22:17 Range/Units Glucometer 193 H 216 H 70-110 MG/DL White Blood Count 12.6 H 4.3-11.0 10^3/uL Red Blood Count 4.69 4.35-5.85 10^6/uL Hemoglobin 13.9 13.3-17.7 G/DL Hematocrit 42 40-54 % Mean Corpuscular Volume 89 80-99 FL Mean Corpuscular Hemoglobin 30 25-34 PG Mean Corpuscular Hemoglobin Concent 33 32-36 G/DL Red Cell Distribution Width 13.7 10.0-14.5 % Platelet Count 189 130-400 10^3/uL Mean Platelet Volume 11.0 H 7.4-10.4 FL Neutrophils (%) (Auto) 77 H 42-75 % Lymphocytes (%) (Auto) 11 L 12-44 % Monocytes (%) (Auto) 9 0-12 % Eosinophils (%) (Auto) 4 0-10 % Basophils (%) (Auto) 0 0-10 % Neutrophils # (Auto) 9.6 H 1.8-7.8 X 10^3 Lymphocytes # (Auto) 1.4 1.0-4.0 X 10^3 Monocytes # (Auto) 1.1 H 0.0-1.0 X 10^3 Eosinophils # (Auto) 0.5 H 0.0-0.3 10^3/uL Basophils # (Auto) 0.0 0.0-0.1 10^3/uL Prothrombin Time 12.9 12.2-14.7 SEC INR Comment 1.0 0.8-1.4 Activated Partial Thromboplast Time 31 24-35 SEC D-Dimer 1.02 H 0.00-0.49 UG/ML Sodium Level 134 L 135-145 MMOL/L Potassium Level 5.5 H 3.6-5.0 MMOL/L Chloride Level 101 98-107 MMOL/L Carbon Dioxide Level 20 L 21-32 MMOL/L Anion Gap 13 5-14 MMOL/L Blood Urea Nitrogen 33 H 7-18 MG/DL Creatinine 2.95 H 0.60-1.30 MG/DL Estimat Glomerular Filtration Rate 22 BUN/Creatinine Ratio 11 Glucose Level 253 H 70-105 MG/DL Lactic Acid Level 1.14 0.50-2.00 MMOL/L Calcium Level 8.8 8.5-10.1 MG/DL Total Bilirubin 0.8 0.1-1.0 MG/DL Aspartate Amino Transf (AST/SGOT) 36 H 5-34 U/L Alanine Aminotransferase (ALT/SGPT) 41 0-55 U/L Alkaline Phosphatase 73 40-136 U/L Ammonia 27 11-32 UMOL/L Troponin I < 0.30 <0.30 NG/ML C-Reactive Protein High Sensitivity 3.44 H 0.00-0.50 MG/DL Total Protein 7.1 6.4-8.2 GM/DL Albumin 4.1 3.2-4.5 GM/DL Serum Alcohol < 10 <10 MG/DL Test 02/03/17 22:40 Range/Units Urine Color YELLOW Urine Clarity CLEAR Urine pH 5 5-9 Urine Specific [place] 1.015 L 1.016-1.022 Urine Protein 1+ H NEGATIVE Urine Glucose (UA) NEGATIVE NEGATIVE Urine Ketones NEGATIVE NEGATIVE Urine Nitrite NEGATIVE NEGATIVE Urine Bilirubin NEGATIVE NEGATIVE Urine Urobilinogen NORMAL NORMAL MG/DL Urine Leukocyte Esterase NEGATIVE NEGATIVE Urine RBC (Auto) 3+ H NEGATIVE Urine RBC 0-2 /HPF Urine WBC RARE /HPF Urine Crystals NONE /LPF Urine Bacteria NEGATIVE /HPF Urine Casts PRESENT /LPF Urine Hyaline Casts 5-10 H /LPF Urine Mucus SMALL H /LPF Urine Culture Indicated NO Urine Opiates Screen POSITIVE H NEGATIVE Urine Oxycodone Screen POSITIVE H NEGATIVE Urine Methadone Screen NEGATIVE NEGATIVE Urine Propoxyphene Screen NEGATIVE NEGATIVE Urine Barbiturates Screen NEGATIVE NEGATIVE Ur Tricyclic Antidepressants Screen POSITIVE H NEGATIVE Urine Phencyclidine Screen NEGATIVE NEGATIVE Urine Amphetamines Screen NEGATIVE NEGATIVE Urine Methamphetamines Screen NEGATIVE NEGATIVE Urine Benzodiazepines Screen POSITIVE H NEGATIVE Urine Cocaine Screen NEGATIVE NEGATIVE Urine Cannabinoids Screen NEGATIVE NEGATIVE Micro Results Microbiology 02/03/17 Blood Culture - Preliminary, Resulted No growth 02/03/17 Blood Culture - Preliminary, Resulted No growth My Orders Orders - MYRA BRAXTON MD Naloxone Injection (Narcan Injection) (02/03/17 20:54) Cbc With Automated Diff (02/03/17 21:07) Protime With Inr (02/03/17 21:07) Partial Thromboplastin Time (02/03/17 21:07) Comprehensive Metabolic Panel (02/03/17 21:07) Fibrin Degradation Products (02/03/17 21:07) Troponin I (02/03/17 21:07) Ua Culture If Indicated (02/03/17 21:07) Chest 1 View, Ap/Pa Only (02/03/17 21:07) Ekg Tracing (02/03/17 21:07) Accucheck Stat ONCE (02/03/17 21:07) Saline Lock/Iv-Start (02/03/17 21:07) Saline Lock/Iv-Start (02/03/17 21:07) Vital Signs - Stroke Q15M (02/03/17 21:07) Ct Head Wo-R/O Stroke (02/03/17 21:07) O2 (02/03/17 21:07) Intake & Output 06,14,22 (02/03/17 21:07) Monitor-Rhythm Ecg Trace Only (02/03/17 21:07) Alcohol (02/03/17 21:07) Drug Screen Stat (Urine) (02/03/17 21:07) Ammonia (02/03/17 21:44) Hs C Reactive Protein (02/03/17 21:44) Blood Culture (02/03/17 21:44) Lactic Acid Analyzer (02/03/17 21:44) Ns Iv 1000 Ml (Sodium Chloride 0.9%) (02/03/17 21:46) Naloxone Injection (Narcan Injection) (02/03/17 23:30) Medications Given in ED Vital Signs/I&O Vital Sign - Last 12Hours 02/03/17 20:58 Temp 96.5 Pulse 110 Resp 18 B/P (MAP) 142/98 Pulse Ox 95 O2 Delivery Room Air Blood Pressure Mean: 113 Progress Note : Progress Note Narcan 2 mg was administered during his assessment. It did not have the desired effect. A stroke activation was then paged out. Patient actually had no specific focal deficits and gradually improved throughout his ER stay. After he became more vocal he admitted that he took pain medication and Xanax when he returned home from [employer]. He was eventually able to have a conversation and was able to stand at the bedside to provide a urine specimen. He did remain somewhat somnolent and generally weak. CT of the head was unremarkable. Due to the degree of his altered mental status upon arrival, admission to the ICU was felt most appropriate, especially given his history of severe similar episodes in the past. Patient received a liter of IV fluids in the ER and aggressive hydration was ordered for admission. ECG Initial ECG Impression Date: Feb 03, 2017 Initial ECG Impression Time: 21:34 Initial ECG Rate: 107 Initial ECG Rhythm: S.Tach Comment Sinus tachycardia with no ST elevation or depression. LVH by automated read. Diagnostic Imaging Diagonstic Imaging: CT Plain Films/CT/US/NM/MRI: head Comments CT head viewed by me and report reviewed. See report below: NAME: VASQUEZ CAMPBELL [facility] REC#: [id number] PT STATUS: REG ER : 1955 PHYSICIAN: MYRA BRAXTON MD ADMIT DATE: 02/03/17/ER Draft Date of Exam:02/03/17 CT HEAD WO-R/O STROKE INDICATION: Altered mental status. CT HEAD: Multiple contiguous axial CT images of the head were obtained. FINDINGS: Ventricles and sulci are within normal limits for size. There is no intracranial hemorrhage identified. There is no abnormal mass effect or shift of midline structures. IMPRESSION: Unremarkable CT of the head. Dictated on workstation # [id number] Dict: 02/03/172131 Trans: 02/03/172133 [id number] Interpreted by: DAVID VEGA MD Diagonstic Imaging: Xray Plain Films/CT/US/NM/MRI: chest Comments Chest x-ray viewed by me and report reviewed. See report below: NAME: VASQUEZ [facility]AMPBELL [facility] REC#: [id number] PT STATUS: REG ER : 1955 PHYSICIAN: MYRA BRAXTON MD ADMIT DATE: 02/03/17/ER Signed Date of Exam: 02/03/17 CHEST 1 VIEW, AP/PA ONLY INDICATION: Altered mental status and cerebrovascular accident. EXAMINATION: Portable upright view of the chest was obtained at 2137 hours. COMPARISON: Study of 06/22/2016. FINDINGS: Heart size and pulmonary vascularity are within normal limits. There is mild basilar atelectasis and/or scarring. No consolidation, pneumothorax or significant pleural fluid is identified. IMPRESSION: 1. Mild bilateral basilar atelectasis and/or scarring without evidence of acute abnormality. 2. Postsurgical or traumatic change in the distal right clavicle is again noted. Dictated by: Dictated on workstation # [id number] Dict: 02/03/172153 Trans: 02/03/172200 Interpreted by: DAVID VEGA MD Electronically signed by: DAVID VEGA MD 02/03/172200 Departure Communication (Admissions) Time/Spoke to Admitting Phy: 00:[address] Mcallister Impression Impression: Primary Impression: Acute renal failure Qualified Codes: N17.9 - Acute kidney failure, unspecified Additional Impressions: Altered mental status Qualified Codes: R41.82 - Altered mental status, unspecified Hyperkalemia Disposition: 09 ADMITTED INPATIENT Condition: Improved Admissions Decision to Admit Reason: Admit from ER (General) Decision to Admit/Date: Feb 03, 2017 Time/Decision to Admit Time: 21:30 Departure-Patient Inst. Referrals: LAUREN RODRIGUEZ MD (PCP) Primary Care Physician MYRA BRAXTON MD Feb 03, 2017 21:46
--- NOTE | 2017-02-03 21:58 | Diagnostic Imaging Report ---
INDICATION: Altered mental status and cerebrovascular accident. EXAMINATION: Portable upright view of the chest was obtained at 2137 hours. COMPARISON: Study of 06/22/2016. FINDINGS: Heart size and pulmonary vascularity are within normal limits. There is mild basilar atelectasis and/or scarring. No consolidation, pneumothorax or significant pleural fluid is identified. IMPRESSION: 1. Mild bilateral basilar atelectasis and/or scarring without evidence of acute abnormality. 2. Postsurgical or traumatic change in the distal right clavicle is again noted. Dictated by: Dictated on workstation # [id number]
[2017-02-03 22:23] LABS: PLATELET COUNT 189 10^3/uL (130-400)
[2017-02-03 22:35] LABS: PROTHROMBIN TIME PATIENT 12.9 SEC (12.2-14.7)
[2017-02-03 22:40] LABS: hs C REACTIVE PROTEIN 3.44 MG/DL (0.00-0.50)
[2017-02-03 22:48] LABS: ALANINE AMINOTRANSFERASE 41 U/L (0-55); ALBUMIN 4.1 GM/DL (3.2-4.5); ALCOHOL < 10 MG/DL (<10); ANION GAP 13 MMOL/L (5-14); ASPARTATE AMINO TRANSFERASE 36 U/L (5-34); BILIRUBIN,TOTAL 0.8 MG/DL (0.1-1.0); BLOOD UREA NITROGEN 33 MG/DL (7-18); BUN/CREATININE RATIO 11; CALCIUM 8.8 MG/DL (8.5-10.1); CARBON DIOXIDE 20 MMOL/L (21-32); CHLORIDE 101 MMOL/L (98-107); CREATININE SERUM 2.95 MG/DL (0.60-1.30); GFR ESTIMATED 22; GLUCOSE 253 MG/DL (70-105); POTASSIUM 5.5 MMOL/L (3.6-5.0); SODIUM 134 MMOL/L (135-145); TOTAL PROTEIN 7.1 GM/DL (6.4-8.2); TROPONIN I < 0.30 NG/ML (<0.30)
[2017-02-03 23:06] LABS: BILIRUBIN,URINE NEGATIVE (NEGATIVE); KETONES,URINE NEGATIVE (NEGATIVE); LEUKOCYTE ESTERASE ,URINE NEGATIVE (NEGATIVE); NITRITE,URINE NEGATIVE (NEGATIVE); PH,URINE 5 (5-9); PROTEIN,URINE 1+ (NEGATIVE); UROBILINOGEN,URINE NORMAL (NORMAL)
[2017-02-03 23:18] LABS: WBC,URINE RARE /HPF
[2017-02-03] MEDS ORDERED: NALOXONE 2 MG/2 ML (NARCAN) SYR IV ONE (23:30)
[2017-02-04] VITALS (14 sets, daily range): BP systolic 96–139; BP diastolic 49–85
[2017-02-04] MEDS ORDERED: NS IV 1000 ML 1,000 ML ONE ×3 (01:49→05:42)
[2017-02-04] MEDS: inSUlin (REGULAR) HUMAN 1 UNIT/0.01 ML (CHARGE PER UNIT) SC SCH ×8 (02:52→21:11)
[2017-02-04] MEDS ORDERED: NALOXONE 0.4 MG/ML 1 ML (NARCAN) VIAL IV ONE (03:00)
[2017-02-04 04:15] LABS: BASOPHILS % (AUTO) 0 % (0-10); EOSINOPHILS # (AUTO) 0.1 10^3/uL (0.0-0.3); EOSINOPHILS % (AUTO) 1 % (0-10); LYMPHOCYTES # (AUTO) 2.5 X 10^3 (1.0-4.0); LYMPHOCYTES % (AUTO) 27 % (12-44); MEAN CORPUSCULAR HEMOGLOBIN 30 PG (25-34); MEAN CORPUSCULAR HGB CONC 33 G/DL (32-36); MEAN CORPUSCULAR VOLUME 90 FL (80-99); MONOCYTES # (AUTO) 1.4 X 10^3 (0.0-1.0); MONOCYTES % (AUTO) 15 % (0-12); NEUTROPHILS # (AUTO) 5.3 X 10^3 (1.8-7.8); NEUTROPHILS % (AUTO) 57 % (42-75); PLATELET COUNT 77 10^3/uL (130-400); RED CELL DISTRIBUTION WIDTH 13.5 % (10.0-14.5); WHITE BLOOD COUNT 9.3 10^3/uL (4.3-11.0)
[2017-02-04 04:51] LABS: CALCIUM 8.1 MG/DL (8.5-10.1); CREATININE SERUM 2.32 MG/DL (0.60-1.30); PHOSPHORUS 4.8 MG/DL (2.3-4.7); POTASSIUM 4.6 MMOL/L (3.6-5.0)
[2017-02-04] MEDS: NS IV 1000 ML 1,000 ML IV SCH ×3 (05:59→19:57)
[2017-02-04] MEDS ORDERED: MAGNESIUM 1 GM/100 ML IVPB 100 ML IV SCH (06:00)
[2017-02-04] MEDS ORDERED: POTASSIUM CL 10MEQ/50ML IVPB 50 ML IV SCH (06:00)
[2017-02-04] MEDS ORDERED: KCL 20 MEQ TAB (K-DUR) PO SCH (06:00)
[2017-02-04] MEDS ORDERED: ONDANSETRON 4 MG/2 ML (SDV) Z0FRAN IV PRN (06:00)
[2017-02-04] MEDS ORDERED: INFLUENZA TRIvalent 2017-2018 0.5 ML/45 MCG SYR IM ONE (08:30)
--- NOTE | 2017-02-04 09:23 | History & Physical-Hospitalist ---
HPI History of Present Illness: HPI/Chief Complaint Pt is a 61yoCM with a PMH of DM, HTN, COPD, and chronic back pain who presented to the ER due to altered mental status. He reports that he was out with his son watching him chop wood and that's the last thing he remembers. He was was sitting in the truck not actively chopping wood or exerting himself. He remember nothing else until he woke up here this morning. He reports feeling well yesterday, eating and drinking normally, no abd pain, n/v, c/d. Per ER notes his SO was unable to arouse him from sleep and found his blood sugar level to read as "high" prior to calling EMS. Source: patient Date Seen 02/04/17 Time Seen by Provider: 08:45 Attending Physician Ousmane Mcallister MD PCP Elijah Nuno MD Referring Physician Date of Admission Feb 04, 2017 at 01:11 Home Medications & Allergies Home Medications Reviewed patient Home Medication Reconciliation Form Allergies Allergies Coded Allergies No Known Drug Allergies (Unverified12/09/14) Past Zqwovyi-Xnacjo-Nynjgt Hx Patient Social History Alcohol Use: Denies Use Recreational Drug Use: No Smoking Status: Former Smoker Former Smoker, Quit: Jan 26, 2015 Type Used: Cigarettes, Smokeless Tobacco Physical Abuse Screen: No Sexual Abuse: No Recent Foreign Travel: No Contact w/other who traveled: No Recent Hopitalizations: No Recent Infectious Disease Expo: No Immunizations Up To Date Pediatric: No Seasonal Allergies Seasonal Allergies: No Surgeries Yes (L SHOULDER, R ANKLE, PENILE IMPLANT, ) Testicular, Vasectomy Respiratory Yes (oxygen at HS, prn during the day) Currently Using CPAP: No Currently Using BIPAP: No Cardiovascular Yes Hypertension Neurological Yes Neuropathy Reproductive System Hx Reproductive Disorders: Yes (ARTIFICAL TESTICLE, ) Sexually Transmitted Disease: No HIV/AIDS: No Genitourinary Yes Renal Failure Gastrointestinal No Musculoskeletal Yes Arthritis, Chronic Back Pain Endocrine History of Endocrine Disorders: Yes Endocrine Disorders: Diabetes, Insulin dep Are Your Blood Sugars Over 250: No HEENT History of HEENT Disorders: No Cancer No Did You Recieve Any Treatments: No Psychosocial History of Psychiatric Problem: No Integumentary History of Skin or Integumenta: No Blood Transfusions History of Blood Disorders: No Adverse Reaction to a Blood Tr: No Family Medical History Significant Family History: Heart Disease, CVA, Diabetes Family Hx: Diabetes mellitus 19 MOTHER G8 SISTER Hypertension 19 FATHER 19 MOTHER Myocardial infarction 19 FATHER (STROKES) Review of Systems Constitutional: No chills, No fever EENTM: No blurred vision, No double vision, No nose congestion, No throat pain Respiratory: No cough, No dyspnea on exertion, No short of breath Cardiovascular: No chest pain, No edema, No palpitations Gastrointestinal: No abdominal pain, No constipation, No diarrhea, No nausea, No vomiting Genitourinary: No dysuria, No frequency Musculoskeletal: No joint pain, No muscle pain Skin: No lesions, No rash Psychiatric/Neurological: Denies Headache, Denies Numbness, Denies Tingling Physical Exam Physical Exam Vital Signs Vital Sign - Last 12Hours 02/03/17 02/04/17 20:58 01:30 Temp 96.5 Pulse 110 Resp 18 B/P (MAP) 142/98 Pulse Ox 95 O2 Delivery Room Air O2 Flow Rate 2.00 Capillary Refill : Less Than 3 Seconds General Appearance: No Apparent Distress, WD/WN, Obese HEENT: PERRL/EOMI, Moist Mucous Membranes Neck: Non Tender, Supple Respiratory: Lungs Clear, No Respiratory Distress Cardiovascular: Regular Rate, Rhythm, No Murmur Gastrointestinal: Normal Bowel Sounds, Non Tender, Soft Extremity: Normal Capillary Refill, No Calf Tenderness Neurologic/Psychiatric: Alert, Oriented x3, Normal Mood/Affect Skin: Normal Color, Warm/Dry Results Results/Procedures Lab Laboratory Tests 02/03/17 21:23 02/03/17 22:17 02/04/17 03:51 02/05/17 05:20 Assessment/Plan Admission Diagnosis Altered Mentation Diagnosis/Problems Diagnosis/Problems (1) Altered mental status Status: Resolved Assessment & Plan: Likely due to build up of metabolites of narcotics due to TOMAS Will hold home medications as able Appears to be similar to what happened in June Qualifiers: Qualified Codes: R41.82 - Altered mental status, unspecified (2) Acute renal failure Status: Acute 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 Continue IVF Qualifiers: Qualified Codes: N17.9 - Acute kidney failure, unspecified (3) Thrombocytopenia Status: Acute Assessment & Plan: trend- asymptomatic normal INR, no evidence of bleeding (4) Normocytic anemia Status: Chronic Assessment & Plan: Chronic, mild (5) Insulin dependent diabetes mellitus Status: Chronic Assessment & Plan: a1c 8.8 in May Poorly controlled Reports missing some insulin doses at home (6) Essential (primary) hypertension Status: Chronic Assessment & Plan: Low overnight, improving now Likely due to volume depletion (7) COPD (chronic obstructive pulmonary disease) Assessment & Plan: MAT protocol Qualifiers: Qualified Codes: J44.9 - Chronic obstructive pulmonary disease, unspecified (8) Chronic back pain Status: Chronic Assessment & Plan: Holding home medications right now Reintroduce slowly Qualifiers: (9) Hyperkalemia Status: Resolved Clinical Quality Measures DVT/VTE Risk/Contraindication: Risk Factor Score Per Nursin RFS Level Per Nursing on Admit: 3=High OUSMANE MCALLISTER MD Feb 04, 2017 09:23
--- NOTE | 2017-02-04 11:15 | Diagnostic Imaging Report ---
EXAMINATION: Chest radiograph, portable AP view. DATE: February 04, 2017 at 0455 hours. INDICATION: 61-year-old male, altered mental status. COMPARISON: February 03, 2017. FINDINGS: Stable overall appearance of the cardiomediastinal silhouette. There is no identified pneumothorax. There is no large pleural effusion. Lung volumes are somewhat low with associated central bronchovascular crowding. There are unchanged streaky opacities in the left lung base. There is a chronic appearing deformity of the right clavicle. IMPRESSION: 1. Somewhat low lung volumes with associated central bronchovascular crowding. Stable streaky opacities in the left lung base which may relate to atelectasis although are nonspecific. Dictated by: Dictated on workstation # [id number]
[2017-02-04] MEDS: oxyCODONE/APAP 5/325MG (PERCOCET 5) TABLET PO PRN ×2 (12:41→23:06)
[2017-02-04] MEDS ORDERED: OXYC-471 PO (16:18)
[2017-02-04] MEDS ORDERED: ALBU2.5V4 PO (16:18)
[2017-02-04] MEDS ORDERED: CHOL10007 PO (16:18)
[2017-02-04] MEDS ORDERED: NF-SOLIF5T PO (16:18)
[2017-02-04] MEDS ORDERED: LISI-552 PO (16:18)
[2017-02-04] MEDS ORDERED: FLUT16SP22 NSEACH (16:18)
[2017-02-04] MEDS ORDERED: AMLO5TAB2 PO (16:18)
[2017-02-04] MEDS ORDERED: MORP60TA52 PO (16:18)
[2017-02-04] MEDS ORDERED: DICL75TA2 PO (16:18)
[2017-02-04] MEDS ORDERED: BACL10TA PO (16:18)
[2017-02-04] MEDS ORDERED: AMIT50TA3 PO (16:18)
[2017-02-04] MEDS ORDERED: MECL-106 PO (16:18)
[2017-02-04] MEDS ORDERED: CYCL10TA9 PO (16:18)
[2017-02-04] MEDS ORDERED: DIAZ2TAB2 PO (16:18)
[2017-02-04] MEDS ORDERED: ALBU18HF2 IH (16:18)
[2017-02-04] MEDS ORDERED: INSU100V16 SQ (16:18)
[2017-02-04] MEDS ORDERED: INSU100V5 SQ (16:18)
[2017-02-04] MEDS ORDERED: BUDE10.2 IH (16:18)
[2017-02-04] MEDS ORDERED: GLIM4TAB PO (16:18)
[2017-02-05] VITALS: BP 150/67
[2017-02-05] MEDS: NS IV 1000 ML 1,000 ML IV SCH ×3 (02:43→16:19)
[2017-02-05 04:00] VITALS: BP 186/87
[2017-02-05] MEDS ORDERED: PROMETHAZINE INJ 25 MG/ML (PHENERGAN) AMP IVP PRN (04:45)
[2017-02-05 05:24] VITALS: BP 136/63
[2017-02-05] MEDS: inSUlin (REGULAR) HUMAN 1 UNIT/0.01 ML (CHARGE PER UNIT) SC SCH ×4 (06:14→21:20)
[2017-02-05 06:24] LABS: BASOPHILS % (AUTO) 0 % (0-10); EOSINOPHILS # (AUTO) 0.2 10^3/uL (0.0-0.3); EOSINOPHILS % (AUTO) 3 % (0-10); LYMPHOCYTES # (AUTO) 1.3 X 10^3 (1.0-4.0); LYMPHOCYTES % (AUTO) 23 % (12-44); MEAN CORPUSCULAR HEMOGLOBIN 29 PG (25-34); MEAN CORPUSCULAR HGB CONC 32 G/DL (32-36); MEAN CORPUSCULAR VOLUME 90 FL (80-99); MEAN PLATELET VOLUME 11.7 FL (7.4-10.4); MONOCYTES # (AUTO) 0.6 X 10^3 (0.0-1.0); MONOCYTES % (AUTO) 11 % (0-12); NEUTROPHILS # (AUTO) 3.6 X 10^3 (1.8-7.8); NEUTROPHILS % (AUTO) 63 % (42-75); PLATELET COUNT 143 10^3/uL (130-400); RED BLOOD COUNT 4.19 10^6/uL (4.35-5.85); RED CELL DISTRIBUTION WIDTH 13.1 % (10.0-14.5); WHITE BLOOD COUNT 5.7 10^3/uL (4.3-11.0)
[2017-02-05 06:57] LABS: ANION GAP 8 MMOL/L (5-14); BLOOD UREA NITROGEN 24 MG/DL (7-18); BUN/CREATININE RATIO 21; CALCIUM 8.5 MG/DL (8.5-10.1); CARBON DIOXIDE 21 MMOL/L (21-32); CHLORIDE 110 MMOL/L (98-107); CREATININE SERUM 1.16 MG/DL (0.60-1.30); GFR ESTIMATED > 60; GLUCOSE 166 MG/DL (70-105); MAGNESIUM 1.9 MG/DL (1.8-2.4); POTASSIUM 5.6 MMOL/L (3.6-5.0); SODIUM 139 MMOL/L (135-145)
[2017-02-05 08:00] VITALS: BP 162/76
[2017-02-05 12:09] VITALS: BP 168/90
[2017-02-05 16:08] VITALS: BP 160/80
--- NOTE | 2017-02-05 17:10 | Progress Note-Hospitalist ---
Standard Progress Note Progress Notes/Assess & Plan Date Seen 02/05/17 Time Seen by Provider: 17:07 Diagnosis Altered Mentation Assess & Plan/Chief Complaint The patient is a 61-year-old white male known to me from a previous admission earlier this year. It was in fact very similar to the presentation at this time and he reports an episode in 2014 which must have been similar as well. He was altered in a mental status way. His white count on admission was 12,600 and is now 5700. More importantly his creatinine at admission was 2.95 and then fell on second reading to 2.3 and is now 1.16. He reports he has been up and is aware of where he has been and is clear about his present situation he is concerned that his blood pressure has been rising. He has not yet been placed back on his maintenance drugs. Physical exam: He is lounging in bed and is alert and comfortable. Lungs are clear to auscultation. CV is regular without murmur. Abdomen is soft without pain to palpation. Extremities show no pedal edema. Impression: Altered mental status now improved. 2.acute renal failure improved. Labs Laboratory Tests 02/03/17 21:23 02/03/17 22:17 02/04/17 03:51 02/05/17 05:20 KEL LAKE MD Feb 05, 2017 17:10
[2017-02-05] MEDS ORDERED: oxyCODONE/APAP 5/325MG (PERCOCET 5) TABLET PO PRN (17:30)
[2017-02-05] MEDS ORDERED: RT-ALBUTEROL SULF 2.5 MG/3 ML PRE-MIX VIAL IH SCH (21:00)
[2017-02-05] MEDS ORDERED: AMITRIPTYLINE 50 MG (ELAVIL) TAB PO SCH (21:00)
[2017-02-05] MEDS ORDERED: CYCLOBENZAPRINE 10 MG (FLEXERIL) TAB PO SCH (21:00)
[2017-02-05] MEDS ORDERED: RT-ALBUTEROL HFA (VENTOLIN) PER PUFF IH SCH (21:00)
[2017-02-05] MEDS: BACLOFEN 10 MG (LIORESAL) TAB PO SCH (21:23)
[2017-02-05] MEDS: lisINopril 20 MG (ZESTRIL) TAB PO SCH (21:23)
[2017-02-05] MEDS: MECLIZINE 25 MG (ANTIVERT) TAB PO SCH (21:24)
[2017-02-05] MEDS: morphine ER 30 MG (MS CONTIN) TAB PO SCH (21:24)
[2017-02-05] MEDS: DIAZEPAM 2 MG (VALIUM) TAB PO SCH (21:24)
[2017-02-05] MEDS: GLIMEPIRIDE 4 MG (AMARYL) TAB PO SCH (21:24)
[2017-02-05] MEDS: GABAPENTIN 600 MG (NEURONTIN) TAB PO SCH (21:24)
[2017-02-05] MEDS: inSUlin DETERMIR 1 UNIT/0.01 ML (LEVEMIR) CHARGE PER UNIT SQ SCH (21:25)
[2017-02-06] MEDS: NS IV 1000 ML 1,000 ML IV SCH ×2 (00:03→06:32)
[2017-02-06 00:08] VITALS: BP 150/68
[2017-02-06 04:00] VITALS: BP 169/75
[2017-02-06] MEDS: inSUlin (REGULAR) HUMAN 1 UNIT/0.01 ML (CHARGE PER UNIT) SC SCH ×2 (05:50→11:01)
[2017-02-06 06:50] LABS: BASOPHILS % (AUTO) 0 % (0-10); EOSINOPHILS # (AUTO) 0.2 10^3/uL (0.0-0.3); EOSINOPHILS % (AUTO) 2 % (0-10); LYMPHOCYTES # (AUTO) 2.2 X 10^3 (1.0-4.0); LYMPHOCYTES % (AUTO) 27 % (12-44); MEAN CORPUSCULAR HEMOGLOBIN 30 PG (25-34); MEAN CORPUSCULAR HGB CONC 33 G/DL (32-36); MEAN CORPUSCULAR VOLUME 89 FL (80-99); MEAN PLATELET VOLUME 11.6 FL (7.4-10.4); MONOCYTES # (AUTO) 0.9 X 10^3 (0.0-1.0); MONOCYTES % (AUTO) 12 % (0-12); NEUTROPHILS # (AUTO) 4.8 X 10^3 (1.8-7.8); NEUTROPHILS % (AUTO) 59 % (42-75); PLATELET COUNT 151 10^3/uL (130-400); RED BLOOD COUNT 3.96 10^6/uL (4.35-5.85); RED CELL DISTRIBUTION WIDTH 12.8 % (10.0-14.5); WHITE BLOOD COUNT 8.2 10^3/uL (4.3-11.0)
[2017-02-06 07:05] LABS: ANION GAP 9 MMOL/L (5-14); BLOOD UREA NITROGEN 15 MG/DL (7-18); BUN/CREATININE RATIO 17; CALCIUM 8.9 MG/DL (8.5-10.1); CARBON DIOXIDE 23 MMOL/L (21-32); CHLORIDE 109 MMOL/L (98-107); CREATININE SERUM 0.87 MG/DL (0.60-1.30); GFR ESTIMATED > 60; GLUCOSE 101 MG/DL (70-105); MAGNESIUM 1.7 MG/DL (1.8-2.4); POTASSIUM 3.9 MMOL/L (3.6-5.0); SODIUM 141 MMOL/L (135-145)
[2017-02-06 08:01] VITALS: BP 172/78
[2017-02-06] MEDS ORDERED: SOLIFENACIN 5 MG TAB (VESICARE) NON-FORMULARY PO SCH (09:00)
[2017-02-06] MEDS ORDERED: amLODIPine 5 MG (NORVASC) TAB PO SCH (09:00)
[2017-02-06] MEDS: GABAPENTIN 600 MG (NEURONTIN) TAB PO SCH ×2 (09:11→12:05)
[2017-02-06] MEDS: DIAZEPAM 2 MG (VALIUM) TAB PO SCH ×2 (09:12→12:05)
[2017-02-06] MEDS: GLIMEPIRIDE 4 MG (AMARYL) TAB PO SCH (09:12)
[2017-02-06] MEDS: MECLIZINE 25 MG (ANTIVERT) TAB PO SCH ×2 (09:12→12:05)
[2017-02-06] MEDS: BACLOFEN 10 MG (LIORESAL) TAB PO SCH ×2 (09:13→12:05)
[2017-02-06] MEDS: lisINopril 20 MG (ZESTRIL) TAB PO SCH (09:13)
[2017-02-06] MEDS: inSUlin DETERMIR 1 UNIT/0.01 ML (LEVEMIR) CHARGE PER UNIT SQ SCH (09:14)
[2017-02-06] MEDS: morphine ER 30 MG (MS CONTIN) TAB PO SCH (09:15)
--- NOTE | 2017-02-06 12:15 | Progress Note-Hospitalist ---
Standard Progress Note Progress Notes/Assess & Plan Date Seen 02/06/17 Time Seen by Provider: 12:12 Diagnosis Altered Mentation Assess & Plan/Chief Complaint The patient is sitting at bedside eating lunch. He reports that he was nauseated all day yesterday although he did not vomit. That has passed today. He is able to eat breakfast and lunch. He is electrolytes that have improved greatly his creatinine has returned to baseline at 0.87. He is ready for discharge. Physical exam: He is alert and oriented. Lungs are clear to auscultation. CV is regular without murmur. Abdomen is obese but soft. Extremities show only a trace of pedal edema. Impression: Acute renal failure now resolved. 2.altered mentation possibly secondary to chronic narcotic use. 3.diabetes mellitus type II Plan: Discharge. See discharge sequence for medications and instructions. Labs Laboratory Tests 02/05/17 05:20 02/06/17 05:55 02/06/17 05:57 Final Diagnosis Altered mentation now resolved. 2.acute renal failure. Now returned to baseline. 3.diabetes mellitus. KEL LAKE MD Feb 06, 2017 12:15
[2017-02-06 12:18] VITALS: BP 174/96
--- NOTE | 2017-02-06 12:18 | Discharge Instructions ---
Discharge Instructions Patient Instructions Patient Instructions: Resume medications as in the discharge list. Take 1.5-2 quarts of fluids daily. Activity & Diet Discharge Diet: ADA Diet Activity as Tolerated: Yes Copy Copies To 1: LAUREN RODRIGUEZ MD, RODNEY K MD Feb 06, 2017 12:18
[2017-02-06] MEDS ORDERED: TROSPIUM 20 MG (SANCTURA) TAB PO SCH (16:00)
== END 2017-02-06 14:30 | disposition home or self-care (01) | DRG 684 ==
LOC: EDUNIT# 20:56 → ER 20:58 → ICU 02-04 01:11 → 4TH 02-04 15:02
PROVIDERS: ADMIT Family Medicine; ATTEND Family Medicine
DX: N17.9 Acute kidney failure, unspecified (principal); R41.82 Altered mental status, unspecified; T40.605A Adverse effect of unspecified narcotics, initial encounter; E87.5 Hyperkalemia; E11.40 Type 2 diabetes mellitus with diabetic neuropathy, unspecified; I10 Essential (primary) hypertension; J44.9 Chronic obstructive pulmonary disease, unspecified; D69.6 Thrombocytopenia, unspecified; D64.9 Anemia, unspecified; E86.9 Volume depletion, unspecified; M54.9 Dorsalgia, unspecified; E66.9 Obesity, unspecified; Z87.891 Personal history of nicotine dependence; Z99.81 Dependence on supplemental oxygen; Z79.4 Long term (current) use of insulin; Z68.36 Body mass index [BMI] 36.0-36.9, adult; Z96.0 Presence of urogenital implants
CPT/HCPCS: 36415; 51702; 70450; 71010; 80048; 80053; 80306; 80320; 81000; 82140; 82550; 82962; 83605; 83735; 84100; 84484; 85025; 85379; 85610; 85730; 86141; 87040; 87081; 93005; 94760; 96361; 96374

== ENCOUNTER 2017-04-22 10:56 | Emergency (ER) | payer MEDICARE, MEDICAID ==
[~2017-04-22] VITALS: Ht 185.4 cm; Wt 108.9 kg
[~2017-04-22 10:56] MED LIST changes: +ALBU18HF2 IH; +ALBU2.5V4 PO; +BACL10TA PO; +DICL75TA2 PO; +FLUT16SP22 NSEACH; +INSU100V16 SQ; -NALOXONE 2 MG/2 ML (NARCAN) SYR ONE
--- NOTE | 2017-04-22 12:23 | ED GU-Male ---
General Chief Complaint: Cough/Cold/Flu Symptoms Stated Complaint: COUGH Nursing Triage Note: PT C/O COUGH FOR 2-3 DAYS. DENIES FEVER. Source: patient Exam Limitations: no limitations History of Present Illness Date Seen by Provider: Apr 22, 2017 Time Seen by Provider: 12:23 Severity/Quality: moderate Allergies and Home Medications Allergies Coded Allergies: No Known Drug Allergies (Unverified , 12/09/14) Home Medications Albuterol Sulfate 2.5 Mg/3 Ml Vial.neb, 2.5 MG PO TID, (Reported) Albuterol Sulfate 18 Gm Hfa.aer.ad, 1-2 PUFF IH QID, (Reported) Amitriptyline HCl 50 Mg Tablet, 50 MG PO HS, (Reported) Amlodipine Besylate 5 Mg Tablet, 5 MG PO DAILY, (Reported) Baclofen 10 Mg Tablet, 10 MG PO TID, (Reported) Budesonide/Formoterol Fumarate 10.2 Gm Hfa.aer.ad, 2 PUFF IH BID, (Reported) Cholecalciferol (Vitamin D3) 1,000 Unit Capsule, 1,000 UNIT PO DAILY, (Reported) Cyclobenzaprine HCl 10 Mg Tablet, 10 MG PO HS, (Reported) Diazepam 2 Mg Tablet, 2 MG PO TID, (Reported) Diclofenac Sodium 75 Mg Tablet.dr, 75 MG PO BID, (Reported) Fluticasone Propionate 16 Gm [place].susp, 2 SPRAYS NSEACH DAILY, (Reported) Gabapentin 600 Mg Tablet, 600 MG PO TID, (Reported) Glimepiride 4 Mg Tablet, 4 MG PO BID, (Reported) Insulin Aspart 100 Unit/1 Ml Susp, 30 UNITS SQ AC, (Reported) Insulin Determir 1,000 Units/10 Ml Soln, 35 UNITS SQ BID, (Reported) Lisinopril 20 Mg Tablet, 20 MG PO BID, (Reported) Meclizine HCl 25 Mg Tablet, 12.5 MG PO QID, (Reported) TAKES 1/2 OF A (25 MG) TABLET Morphine Sulfate 60 Mg Tablet.er, 60 MG PO BID, (Reported) Oxycodone HCl/Acetaminophen 1 Each Tablet, 1 TAB PO TID PRN for PAIN-MODERATE, ( Reported) Solifenacin Succinate 5 Mg Tablet, 5 MG PO DAILY, (Reported) Past Mhgikab-Nfekxb-Lyciwq Hx Patient Social History Alcohol Use: Denies Use Recreational Drug Use: No Smoking Status: Former Smoker Type Used: Cigarettes, Smokeless Tobacco Former Smoker, Quit: Jan 26, 2015 Recent Foreign Travel: No Contact w/Someone Who Travel: No Recent Infectious Disease Expo: No Recent Hopitalizations: No Physical Abuse: No Sexual Abuse: No Immunizations Up To Date Tetanus Booster (TDap): Unknown PED Vaccines UTD: No Seasonal Allergies Seasonal Allergies: No Surgeries History of Surgeries: Yes (L SHOULDER, R ANKLE, PENILE IMPLANT, ) Surgeries: Testicular, Vasectomy Respiratory History of Respiratory Disorde: Yes (oxygen at HS, prn during the day) Respiratory Disorders: COPD Currently Using CPAP: No Currently Using BIPAP: No Cardiovascular History of Cardiac Disorders: Yes Cardiac Disorders: Hypertension Neurological History of Neurological Disord: Yes Neurological Disorders: Neuropathy Reproductive System Hx Reproductive Disorders: Yes (ARTIFICAL TESTICLE, ) Sexually Transmitted Disease: No HIV/AIDS: No Genitourinary History of Genitourinary Disor: Yes Genitourinary Disorders: Renal Failure Gastrointestinal History of Gastrointestinal Di: No Musculoskeletal History of Musculoskeletal Dis: Yes Musculoskeletal Disorders: Arthritis, Chronic Back Pain Endocrine History of Endocrine Disorders: Yes Endocrine Disorders: Diabetes, Insulin dep HEENT History of HEENT Disorders: No Cancer History of Cancer: No Did You Recieve Any Treatments: No Psychosocial History of Psychiatric Problem: No Suicide Risk Score: 0 Integumentary History of Skin or Integumenta: No Blood Transfusions History of Blood Disorders: No Adverse Reaction to a Blood Tr: No Family Medical History Significant Family History: Heart Disease, CVA, Diabetes Family Medial History: Diabetes mellitus 19 MOTHER G8 SISTER Hypertension 19 FATHER 19 MOTHER Myocardial infarction 19 FATHER (STROKES) Physical Exam Vital Signs Vital Sign - Last 12Hours 04/22/17 11:09 Temp 98.1 Pulse 112 Resp 20 B/P (MAP) 185/94 (124) Pulse Ox 95 O2 Delivery Room Air Capillary Refill : Less Than 3 Seconds Progress/Results/Core Measures Suspected Sepsis Recent Fever Within 48 Hours: No Infection Criteria Present: Suspected New Infection New/Unexplained Altered Menta: No Sepsis Screen: No Definite Risk Sepsis Diagnosis: SIRS Temperature:98.1 Pulse: 112 Respiratory Rate: 20 Laboratory Tests 04/22/17 12:46: White Blood Count 6.4 Blood Pressure 185 /94 Mean: 124 Laboratory Tests 04/22/17 12:46: Platelet Count 180 04/22/17 13:32: Results/Orders Lab Results Laboratory Tests Test 04/22/17 12:46 04/22/17 13:32 Range/Units White Blood Count 6.4 4.3-11.0 10^3/uL Red Blood Count 4.95 4.35-5.85 10^6/uL Hemoglobin 14.6 13.3-17.7 G/DL Hematocrit 43 40-54 % Mean Corpuscular Volume 86 80-99 FL Mean Corpuscular Hemoglobin 30 25-34 PG Mean Corpuscular Hemoglobin Concent 34 32-36 G/DL Red Cell Distribution Width 14.1 10.0-14.5 % Platelet Count 180 130-400 10^3/uL Mean Platelet Volume 11.3 H 7.4-10.4 FL Neutrophils (%) (Auto) 66 42-75 % Lymphocytes (%) (Auto) 16 12-44 % Monocytes (%) (Auto) 15 H 0-12 % Eosinophils (%) (Auto) 1 0-10 % Basophils (%) (Auto) 1 0-10 % Neutrophils # (Auto) 4.3 1.8-7.8 X 10^3 Lymphocytes # (Auto) 1.0 1.0-4.0 X 10^3 Monocytes # (Auto) 1.0 0.0-1.0 X 10^3 Eosinophils # (Auto) 0.1 0.0-0.3 10^3/uL Basophils # (Auto) 0.1 0.0-0.1 10^3/uL My Orders Orders - KEL LAKE MD Cbc With Automated Diff (04/22/17 12:36) Chest 1 View, Ap/Pa Only (04/22/17 12:36) Comprehensive Metabolic Panel (04/22/17 13:26) Vital Signs/I&O Vital Sign - Last 12Hours 04/22/17 11:09 Temp 98.1 Pulse 112 Resp 20 B/P (MAP) 185/94 (124) Pulse Ox 95 O2 Delivery Room Air Capillary Refill : Less Than 3 Seconds Blood Pressure Mean: 124 Departure Departure-Patient Inst. Referrals: LAUREN RODRIGUEZ MD (PCP) Primary Care Physician KEL LAKE MD Apr 22, 2017 12:23
[2017-04-22 12:59] LABS: BASOPHILS # (AUTO) 0.1 10^3/uL (0.0-0.1); BASOPHILS % (AUTO) 1 % (0-10); EOSINOPHILS # (AUTO) 0.1 10^3/uL (0.0-0.3); EOSINOPHILS % (AUTO) 1 % (0-10); HEMATOCRIT 43 % (40-54); HEMOGLOBIN 14.6 G/DL (13.3-17.7); LYMPHOCYTES % (AUTO) 16 % (12-44); MEAN CORPUSCULAR HEMOGLOBIN 30 PG (25-34); MEAN CORPUSCULAR HGB CONC 34 G/DL (32-36); MEAN CORPUSCULAR VOLUME 86 FL (80-99); MEAN PLATELET VOLUME 11.3 FL (7.4-10.4); MONOCYTES % (AUTO) 15 % (0-12); NEUTROPHILS # (AUTO) 4.3 X 10^3 (1.8-7.8); NEUTROPHILS % (AUTO) 66 % (42-75); PLATELET COUNT 180 10^3/uL (130-400); RED BLOOD COUNT 4.95 10^6/uL (4.35-5.85); RED CELL DISTRIBUTION WIDTH 14.1 % (10.0-14.5); WHITE BLOOD COUNT 6.4 10^3/uL (4.3-11.0)
--- NOTE | 2017-04-22 13:06 | Diagnostic Imaging Report ---
PATIENT HISTORY: Cough. TECHNIQUE: Single frontal view of the chest. COMPARISON: 02/04/2017. FINDINGS: The lung volumes are normal. No focal consolidation is seen. No large pleural effusion or pneumothorax is seen. The cardiomediastinal silhouette is normal in size and contour. No acute osseous abnormality is seen. IMPRESSION: No acute pulmonary abnormality seen. Dictated by: Dictated on workstation # [id number]
--- NOTE | 2017-04-22 13:51 | ED Cough/URI ---
General Chief Complaint: Cough/Cold/Flu Symptoms Stated Complaint: COUGH Nursing Triage Note: PT C/O COUGH FOR 2-3 DAYS. DENIES FEVER. Source: patient Exam Limitations: no limitations History of Present Illness Date Seen by Provider: Apr 22, 2017 Time Seen by Provider: 12:23 Initial Comments The patient is a 61-year-old white male who presented with complaints of considerable body aches, fever and chills, harsh dry cough. This began about 2- 3 days ago. He does not describe appreciable dyspnea. He is a reformed smoker having quit about 15 years ago. Prior to that he had smoked up to 3 packs of cigarettes per day. Severity/Quality: moderate, dry cough Allergies and Home Medications Allergies Coded Allergies: No Known Drug Allergies (Unverified , 12/09/14) Home Medications Albuterol Sulfate 2.5 Mg/3 Ml Vial.neb, 2.5 MG PO TID, (Reported) Albuterol Sulfate 18 Gm Hfa.aer.ad, 1-2 PUFF IH QID, (Reported) Amitriptyline HCl 50 Mg Tablet, 50 MG PO HS, (Reported) Amlodipine Besylate 5 Mg Tablet, 5 MG PO DAILY, (Reported) Baclofen 10 Mg Tablet, 10 MG PO TID, (Reported) Budesonide/Formoterol Fumarate 10.2 Gm Hfa.aer.ad, 2 PUFF IH BID, (Reported) Cholecalciferol (Vitamin D3) 1,000 Unit Capsule, 1,000 UNIT PO DAILY, (Reported) Cyclobenzaprine HCl 10 Mg Tablet, 10 MG PO HS, (Reported) Diazepam 2 Mg Tablet, 2 MG PO TID, (Reported) Diclofenac Sodium 75 Mg Tablet.dr, 75 MG PO BID, (Reported) Fluticasone Propionate 16 Gm [place].susp, 2 SPRAYS NSEACH DAILY, (Reported) Gabapentin 600 Mg Tablet, 600 MG PO TID, (Reported) Glimepiride 4 Mg Tablet, 4 MG PO BID, (Reported) Insulin Aspart 100 Unit/1 Ml Susp, 30 UNITS SQ AC, (Reported) Insulin Determir 1,000 Units/10 Ml Soln, 35 UNITS SQ BID, (Reported) Lisinopril 20 Mg Tablet, 20 MG PO BID, (Reported) Meclizine HCl 25 Mg Tablet, 12.5 MG PO QID, (Reported) TAKES 1/2 OF A (25 MG) TABLET Morphine Sulfate 60 Mg Tablet.er, 60 MG PO BID, (Reported) Oxycodone HCl/Acetaminophen 1 Each Tablet, 1 TAB PO TID PRN for PAIN-MODERATE, ( Reported) Solifenacin Succinate 5 Mg Tablet, 5 MG PO DAILY, (Reported) Constitutional: see HPI EENTM: no symptoms reported Respiratory: see HPI, cough, dyspnea on exertion Cardiovascular: no symptoms reported Gastrointestinal: no symptoms reported Genitourinary: no symptoms reported Musculoskeletal: other (Widespread myalgia) Skin: no symptoms reported Psychiatric/Neurological: No Symptoms Reported Hematologic/Lymphatic: No Symptoms Reported Immunological/Allergic: no symptoms reported Past Vspfgsq-Smyyxq-Tavxpi Hx Patient Social History Alcohol Use: Denies Use Recreational Drug Use: No Smoking Status: Former Smoker Type Used: Cigarettes, Smokeless Tobacco Former Smoker, Quit: Jan 26, 2015 Recent Foreign Travel: No Contact w/Someone Who Travel: No Recent Infectious Disease Expo: No Recent Hopitalizations: No Physical Abuse: No Sexual Abuse: No Immunizations Up To Date Tetanus Booster (TDap): Unknown PED Vaccines UTD: No Seasonal Allergies Seasonal Allergies: No Surgeries History of Surgeries: Yes (L SHOULDER, R ANKLE, PENILE IMPLANT, ) Surgeries: Testicular, Vasectomy Respiratory History of Respiratory Disorde: Yes (oxygen at HS, prn during the day) Respiratory Disorders: COPD Currently Using CPAP: No Currently Using BIPAP: No Cardiovascular History of Cardiac Disorders: Yes Cardiac Disorders: Hypertension Neurological History of Neurological Disord: Yes Neurological Disorders: Neuropathy Reproductive System Hx Reproductive Disorders: Yes (ARTIFICAL TESTICLE, ) Sexually Transmitted Disease: No HIV/AIDS: No Genitourinary History of Genitourinary Disor: Yes Genitourinary Disorders: Renal Failure Gastrointestinal History of Gastrointestinal Di: No Musculoskeletal History of Musculoskeletal Dis: Yes Musculoskeletal Disorders: Arthritis, Chronic Back Pain Endocrine History of Endocrine Disorders: Yes Endocrine Disorders: Diabetes, Insulin dep HEENT History of HEENT Disorders: No Cancer History of Cancer: No Did You Recieve Any Treatments: No Psychosocial History of Psychiatric Problem: No Suicide Risk Score: 0 Integumentary History of Skin or Integumenta: No Blood Transfusions History of Blood Disorders: No Adverse Reaction to a Blood Tr: No Family Medical History Significant Family History: Heart Disease, CVA, Diabetes Family Medial History: Diabetes mellitus 19 MOTHER G8 SISTER Hypertension 19 FATHER 19 MOTHER Myocardial infarction 19 FATHER (STROKES) Physical Exam Vital Signs Vital Sign - Last 12Hours 04/22/17 11:09 Temp 98.1 Pulse 112 Resp 20 B/P (MAP) 185/94 (124) Pulse Ox 95 O2 Delivery Room Air Capillary Refill : Less Than 3 Seconds General Appearance: other (harsh dry cough) Eyes: Bilateral Eye Normal Inspection HEENT: normal ENT inspection Neck: full range of motion Respiratory: other (barrel chested. Distant breath sounds without wheezing or rhonchi) Cardiovascular: normal peripheral pulses, regular rate, rhythm, no edema, no gallop, no JVD, no murmur Gastrointestinal: normal bowel sounds, non tender, soft, no organomegaly, no pulsatile mass Skin: normal color, warm/dry, cyanosis, cool, diaphoresis, damp Lymphatic: no adenopathy, axilla node tender (R), axilla node tender (L), inguinal node tender (R), inguinal node tender (L) Progress/Results/Core Measures Suspected Sepsis Recent Fever Within 48 Hours: No Infection Criteria Present: Suspected New Infection New/Unexplained Altered Menta: No Sepsis Screen: No Definite Risk Sepsis Diagnosis: SIRS Temperature:98.1 Pulse: 112 Respiratory Rate: 20 Laboratory Tests 04/22/17 12:46: White Blood Count 6.4 Blood Pressure 185 /94 Mean: 124 Laboratory Tests 04/22/17 12:46: Platelet Count 180 04/22/17 13:32: Results/Orders Lab Results Laboratory Tests Test 04/22/17 12:46 04/22/17 13:32 Range/Units White Blood Count 6.4 4.3-11.0 10^3/uL Red Blood Count 4.95 4.35-5.85 10^6/uL Hemoglobin 14.6 13.3-17.7 G/DL Hematocrit 43 40-54 % Mean Corpuscular Volume 86 80-99 FL Mean Corpuscular Hemoglobin 30 25-34 PG Mean Corpuscular Hemoglobin Concent 34 32-36 G/DL Red Cell Distribution Width 14.1 10.0-14.5 % Platelet Count 180 130-400 10^3/uL Mean Platelet Volume 11.3 H 7.4-10.4 FL Neutrophils (%) (Auto) 66 42-75 % Lymphocytes (%) (Auto) 16 12-44 % Monocytes (%) (Auto) 15 H 0-12 % Eosinophils (%) (Auto) 1 0-10 % Basophils (%) (Auto) 1 0-10 % Neutrophils # (Auto) 4.3 1.8-7.8 X 10^3 Lymphocytes # (Auto) 1.0 1.0-4.0 X 10^3 Monocytes # (Auto) 1.0 0.0-1.0 X 10^3 Eosinophils # (Auto) 0.1 0.0-0.3 10^3/uL Basophils # (Auto) 0.1 0.0-0.1 10^3/uL My Orders Orders - KEL LAKE MD Cbc With Automated Diff (04/22/17 12:36) Chest 1 View, Ap/Pa Only (04/22/17 12:36) Comprehensive Metabolic Panel (04/22/17 13:26) Vital Signs/I&O Vital Sign - Last 12Hours 04/22/17 11:09 Temp 98.1 Pulse 112 Resp 20 B/P (MAP) 185/94 (124) Pulse Ox 95 O2 Delivery Room Air Capillary Refill : Less Than 3 Seconds Blood Pressure Mean: 124 Departure Impression Impression: Primary Impression: Influenza-like symptoms Disposition: HOME, SELF-CARE Condition: Stable/Unchanged Departure-Patient Inst. Decision time for Depature: 13:49 Referrals: LAUREN RODRIGUEZ MD (PCP) Primary Care Physician Patient Instructions: Flu, Adult (DC) Add. Discharge Instructions: All discharge instructions reviewed with patient and/or family. Voiced understanding. Lots of liquids. You may use Tylenol 650 every 4 hours or ibuprofen 600 mg every 6 hours for fever aches and pains. Robitussin-DM would be useful for cough. Mucinex can help loosen the mucus. This may take 2-4 weeks to resolve KEL LAKE MD Apr 22, 2017 13:51
[2017-04-22 13:55] LABS: ALANINE AMINOTRANSFERASE 40 U/L (0-55); ALBUMIN 4.6 GM/DL (3.2-4.5); ALKALINE PHOSPHATASE 100 U/L (40-136); BILIRUBIN,TOTAL 0.6 MG/DL (0.1-1.0); BUN/CREATININE RATIO 11; CARBON DIOXIDE 25 MMOL/L (21-32); CHLORIDE 103 MMOL/L (98-107); CREATININE SERUM 1.11 MG/DL (0.60-1.30); GFR ESTIMATED > 60; GLUCOSE 188 MG/DL (70-105); POTASSIUM 4.6 MMOL/L (3.6-5.0); SODIUM 139 MMOL/L (135-145); TOTAL PROTEIN 8.2 GM/DL (6.4-8.2)
[2017-04-22 13:57] VITALS: BP 179/88
== END 2017-04-22 13:57 | disposition home or self-care (01) ==
LOC: EDUNIT# 10:56 → ER 10:58
DX: J11.1 Influenza due to unidentified influenza virus with other respiratory manifestations (principal); J44.9 Chronic obstructive pulmonary disease, unspecified; E11.9 Type 2 diabetes mellitus without complications; Z82.49 Family history of ischemic heart disease and other diseases of the circulatory system; Z87.891 Personal history of nicotine dependence; Z79.4 Long term (current) use of insulin; Z98.52 Vasectomy status; Z96.0 Presence of urogenital implants
CPT/HCPCS: 36415; 71045; 80053; 85025

== ENCOUNTER 2018-07-22 08:17 | Inpatient (IN) | payer MEDICARE, MEDICAID ==
[~2018-07-22] VITALS: Ht 188 cm; Wt 119.8 kg
[2018-07-22] VITALS (17 sets, daily range): BP systolic 95–124; BP diastolic 38–59
[~2018-07-22 08:17] MED LIST changes: -AMLO5TAB2 PO; +AMLO5TAB9 PO; +GBPN600T PO; -IPRA3AMP INH; +IPRA3AMP31 INH
--- NOTE | 2018-07-22 08:17 | NUR ---
ARRIVAL TO ED BY [facility]. PATIENT RESPONSIVE TO PAINFULS STIMULI ONLY. 0837 IV #22 L HAND BLOOD DRAWN FROM. IV BY Nicholas PATRICK RN. [address] KAUR 0839 RT CALLED [id number] FAMILY TO FAMILY ROOM TALKED WITH FAMILY ABOUT PATIENT CONDITON 0849 ETOMIDATE 20MG GIVEN IV PRIOR TO ET TUBE PLACEMENT. 0850 SUCCUBTLCHOLINE 100MG GIVEN IV
--- OUTSIDE RECORDS SUMMARY | 2018-07-22 08:26 | XMS REPORT ---
Author Author Mateusz Anand [facility] Address [address] [place], [place] [id number] Care Team Providers Care Mud Trucker Name Role Phone Kika Mateusz PCP Allergies and Adverse Reactions Name Reaction Notes No known drug allergy Plan of Treatment Planned Activity Comments Planned Date Planned Time Plan/Goal [facility] 05/29/2018 12:00 AM Medications Active Name Start Date Estimated Completion Date SIG Comments morphine 60 mg oral capsule, ER multiphase 24 hr take 1 capsule (60 mg) by oral route every 12 hours Percocet 5-325 mg oral tablet take 1 tablet by oral route 3 times daily gabapentin 600 mg oral tablet take 1 tablet (600 mg) by oral route 3 times per day meclizine 25 mg oral tablet take 1 tablet (25 mg) by oral route 4 times per day Symbicort 160-4.5 mcg/actuation inhalation HFA aerosol inhaler inhale 2 puffs by inhalation route 2 times per day in the morning and evening diazepam 2 mg oral tablet take 1 tablet (2 mg) by oral route every 8 hours diclofenac sodium 75 mg oral tablet,delayed release (DR/EC) take 1 tablet (75 mg) by oral route 2 times per day Levemir U-100 Insulin 100 unit/mL subcutaneous solution inject by subcutaneous route per prescriber's instructions. Insulin dosing requires individualization. amitriptyline 50 mg oral tablet take 1 tablet (50 mg) by oral route once daily at bedtime lisinopril 20 mg oral tablet take 1 tablet (20 mg) by oral route twice daily Novolog U-100 Insulin aspart 100 unit/mL subcutaneous solution inject by subcutaneous route per prescriber's instructions. Insulin dosing requires individualization. cyclobenzaprine 10 mg oral tablet take 1 tablet (10 mg) by oral route daily Flonase Allergy Relief 50 mcg/actuation nasal spray,suspension inhale 1 spray (50 mcg) in each nostril by intranasal route once daily as needed Systane (PF) 0.4-0.3 % ophthalmic (eye) dropperette instill 1 drop by ophthalmic route 4 times a day Travatan Z 0.004 % ophthalmic (eye) drops instill 1 drop into affected eye(s) by ophthalmic route once daily in the evening glimepiride 4 mg oral tablet take 1 tablet (4 mg) by oral route once daily baclofen 10 mg oral tablet take 1 tablet (10 mg) by oral route 3 times per day amlodipine 5 mg oral tablet take 1 tablet (5 mg) by oral route once daily cholecalciferol (vitamin D3) 1,000 unit oral capsule take 1 capsule by oral route daily tamsulosin 0.4 mg oral capsule 05/14/2018 12/10/2018 take 1 capsule (0.4 mg) by oral route once daily 1/2 hour following the same meal each day for 30 days Ventolin HFA 90 mcg/actuation inhalation HFA aerosol inhaler 05/20/2018 inhale 1 - 2 puffs (90 - 180 mcg) by inhalation route every 4-6 hours as needed Discontinued Name Start Date Discontinued Date SIG Comments Vesicare 5 mg oral tablet 04/11/2018 take 1 tablet (5 mg) by oral route once daily Problem List Not available. Vital Signs Date Time BP-Sys(mm[Hg] BP-Marlin(mm[Hg]) HR(bpm) RR(rpm) Temp WT HT HC BMI BSA BMI Percentile O2 Sat(%) 04/03/2018 2:58:00 PM 160 mmHg 88 mmHg 95 bpm 18 rpm 98.1 F 273.125 lbs 73 in 36.0341 kg/m 2.526 m 96 % Social History Name Description Comments Tobacco Former smoker Alcohol Light Caffeine Current every day Chewing Tobacco Former History of Procedures Date Ordered Description Order Status 04/03/2018 12:00 AM URINALYSIS AUTO W/SCOPE Reviewed 04/03/2018 12:00 AM ASSAY OF PSA TOTAL Reviewed 04/03/2018 12:00 AM METABOLIC PANEL TOTAL CA Reviewed Results Summary Date and Description Results 04/03/2018 3:58 PM GLUCOSE 102 SODIUM 142 POTASSIUM 4.0 CHLORIDE 106 CO2 26 BUN 14 CREATININE 1.2 CALCIUM 9.8 AGE 62 GFR NonAA 61 GFR AA 74 eGFR 61 eGFR AA* > 60 PSA TOTAL 0.10 04/03/2018 4:15 PM COLOR YELLOW APPEARANCE CLEAR SPEC GRAV <=1.005 pH 6.5 PROTEIN NEGATIVE GLUCOSE NEGATIVE KETONE NEGATIVE BILIRUBIN NEGATIVE BLOOD NEGATIVE NITRITE NEGATIVE LEUK SCREEN NEGATIVE WBC/HPF NEGATIVE RBC/HPF NEGATIVE CASTS/LPF NEGATIVE CRYSTALS NEGATIVE MUCOUS THRDS NEGATIVE BACTERIA NEGATIVE EPITH CELLS FEW SQUAMOUS TRICHOMONAS NEGATIVE YEAST NEGATIVE CULT SET UP? NO History Of Immunizations Not available. 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 Renal Insufficiency, Chronic Degeneration of lumbosacral intervertebral disc Uncontrolled diabetes mellitus Glaucoma (increased eye pressure) Fluid retention Neuroforaminal stenosis of lumbar spine Emphysema Sciatica Hypertension Erectile dysfunction Apr 03 2018 3:01PM BPH (benign prostatic hyperplasia) Apr 03 2018 3:01PM Urgency of micturition Apr 03 2018 3:01PM Renal dysfunction Apr 03 2018 3:01PM Diabetes Apr 03 2018 3:01PM Renal dysfunction May 29 2018 12:56PM BPH (benign prostatic hyperplasia) May 29 2018 12:56PM Diabetes May 29 2018 12:56PM Payers Insurance Name Company Name Plan Name Plan Number Policy Number Policy Group Number Start Date Medicare Part B [employer] [place] [id number] N/A [facility] [id number] N/A History of Encounters Visit Date Visit Type Provider 05/29/2018 Office visit Mateusz Anand MD 04/03/2018 Office visit Mateusz Anand MD
--- OUTSIDE RECORDS SUMMARY | 2018-07-22 08:26 | XMS REPORT ---
Author Author Mateusz Anand [facility] Address [address] [place], [place] [id number] Care Team Providers Care Rotary Kiln Operator Name Role Phone Mateusz Anand PCP Allergies and Adverse Reactions Name Reaction Notes No known drug allergy Plan of Treatment Planned Activity Comments Planned Date Planned Time Plan/Goal URINALYSIS W/MICRO C&S IF IND 04/03/2018 12:00 AM PSA TOTAL 04/03/2018 12:00 AM BMP 04/03/2018 12:00 AM Medications Active Name Start Date Estimated Completion Date SIG Comments morphine 60 mg oral capsule, ER multiphase 24 hr take 1 capsule (60 mg) by oral route every 12 hours Percocet 5-325 mg oral tablet take 1 tablet by oral route 3 times daily Vesicare 5 mg oral tablet take 1 tablet (5 mg) by oral route once daily gabapentin 600 mg oral tablet take [...] (20 mg) by oral route twice daily Ventolin HFA 90 mcg/actuation inhalation HFA aerosol inhaler inhale 1 - 2 puffs (90 - 180 mcg) by inhalation route every 4-6 hours as needed Novolog U-100 Insulin aspart 100 unit/mL subcutaneous [...] take 1 capsule by oral route daily Problem List Not available. Vital Signs [...] day Chewing Tobacco Former History of Procedures Not available. Results Summary Not available. History Of Immunizations Not available. History of Past Illness Name Date of Onset Comments Type 2 diabetes mellitus with complication, unspecified whether intermediate insulin use Renal Insufficiency, Chronic Degeneration of lumbosacral intervertebral disc Uncontrolled diabetes mellitus Glaucoma (increased eye pressure) Fluid retention Neuroforaminal stenosis of lumbar spine Emphysema Sciatica Hypertension Erectile dysfunction Apr 03 2018 3:01PM BPH (benign prostatic hyperplasia) Apr 03 2018 3:01PM Urgency of micturition Apr 03 2018 3:01PM Renal dysfunction Apr 03 2018 3:01PM Diabetes Apr 03 2018 3:01PM Payers Insurance Name Company Name Plan Name Plan Number Policy Number Policy Group Number Start Date Medicare Part B [employer] [place] [id number] N/A [facility] [id number] N/A History of Encounters Visit Date Visit Type Provider 04/03/2018 Office visit Mateusz Anand MD
--- OUTSIDE RECORDS SUMMARY | 2018-07-22 08:26 | XMS REPORT ---
Author Author Mateusz Anand [facility] Address [address] [place], [place] [id number] Care Team Providers Care Filter Tank Tender Helper Head Name Role Phone Mateusz Anand PCP Allergies and Adverse Reactions Name Reaction Notes No known drug allergy Plan of Treatment Planned Activity Comments Planned Date Planned Time Plan/Goal BMP 05/29/2018 12:00 AM URINALYSIS W/MICRO C&S IF IND 05/29/2018 12:00 AM Medications Active Name Start [...] HC BMI BSA BMI Percentile O2 Sat(%) 05/29/2018 1:38:00 PM 138 mmHg 90 mmHg 101 bpm 18 rpm 98.8 F 276 lbs 73 in 36.4134 kg/m 2.5393 m 95 % 04/03/2018 2:58:00 PM 160 mmHg 88 mmHg 95 bpm 18 rpm 98.1 F 273.125 lbs 73 in 36.03 kg/m2 2.53 m2 96 % Social History Name Description Comments Tobacco Former smoker Alcohol Light Caffeine Current every day Chewing Tobacco Former History of Procedures Date Ordered Description Order Status 04/03/2018 12:00 AM URINALYSIS AUTO W/SCOPE Reviewed 04/03/2018 12:00 AM ASSAY OF PSA TOTAL Reviewed 04/03/2018 12:00 AM METABOLIC PANEL TOTAL CA Reviewed 05/29/2018 1:49 PM US URINE CAPACITY MEASURE Reviewed Results Summary Date and Description Results [...] 2 diabetes mellitus with complication, 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
--- OUTSIDE RECORDS SUMMARY | 2018-07-22 08:26 | XMS REPORT ---
Author Author Ari Odell [facility] Address [address] [place], [place] [id number] Care Team Providers Care Protection Consultant Name Role Phone Ari Odell PCP Allergies and Adverse Reactions Name Reaction Notes No known drug allergy Plan of Treatment Planned Activity Comments Planned Date Planned Time Plan/Goal URINALYSIS W/MICRO C&S IF IND 05/29/2018 12:00 [...] AM METABOLIC PANEL TOTAL CA Reviewed 05/29/2018 12:00 AM METABOLIC PANEL TOTAL CA Returned 05/29/2018 1:49 PM US URINE CAPACITY MEASURE [...] 2 diabetes mellitus with complication, unspecified whether group home insulin use Renal Insufficiency, Chronic Degeneration of [...] Date Medicare Part B Medicare [employer] [place] [id number] N/A [facility] [id number] N/A History of Encounters Visit Date Visit Type Provider 05/30/2018 [facility] Ari Odell DO 05/29/2018 Office visit Mateusz Anand MD 04/03/2018 Office visit Mateusz Anand MD
--- OUTSIDE RECORDS SUMMARY | 2018-07-22 08:26 | XMS REPORT ---
Author Author Migration, Doctor Organization [facility] Address Unknown Phone Unavailable Care Team Providers Care Actuarial Analyst Name Role Phone Migration, Doctor Unavailable Unavailable PROBLEMS Type Condition ICD9-CM Code DKS46-SS Code Onset Dates Condition Status SNOMED Code Problem Diabetes with unspecified complication, type II or unspecified type, uncontrolled 250.92 Active 19234826523074 Problem Type 2 diabetes mellitus with hyperglycemia E11.65 Active 240877770797161 Problem Cervicalgia 723.1 Active 61629566 Problem Chronic rhinitis 472.0 Active 68687906 Problem Diabetes mellitus without mention of complication, type II or unspecified type, uncontrolled 250.02 Active 932511779 Problem Diabetes mellitus without mention of complication, type II or unspecified type, not stated as uncontrolled 250.00 Active [id number] ALLERGIES No Information ENCOUNTERS Encounter Location Date Diagnosis [facility] [id number] [place] [address]- [address]88 July, Type 2 diabetes mellitus with hyperglycemia E11.65 [facility] [id number] [place] [address] 71413- 6453 Apr, Type 2 diabetes mellitus with hyperglycemia E11.65 [facility] [id number] [address] Feb, [facility] [id number] [place] [address]308- 6899 Jan, [facility] [id number] [place] [address] 96604- 8088 Dec, [facility] [id number] [place] [address]270- 1911 Nov, [facility] [id number] [place] [address] [id number]- 7072 Nov, [facility] [id number] [place] [address] 91491- 3049 Nov, [facility] [id number] Nov, [facility] [id number], [place] [address] Oct, [facility] [id number], [place] [address] 4[address] Oct, [facility] [id number], [place] [address] 82[address] Oct, [facility] [id number], [place] [address] 0033 Oct, Radiculopathy of leg 724.4 and Chronic rhinitis 472.0 [facility] [id number], [place] [address] Oct, [facility] [id number], [place] [address] 7[address] Oct, Dehydration 276.51 [facility] [id number], [place] [address] 40[address] Oct, [facility] [id number], [place] [address] Sep, [facility] [id number], [place] [address] 4[address] Sep, [facility] [id number], [place] [address] 4445 Sep, Labyrinthitis 386.30 [facility] [id number], [place] [address] 8542 Sep, [facility] [id number], [place] [address] 2620 Sep, [facility] [id number] [address] Sep, [facility] [id number] [place] [address] 2546 Sep, [facility] [id number], [place] [address]- 1066 Sep, [facility] [id number] [place] [address] 2546 Aug, Diabetes mellitus without mention of complication, type II or unspecified type, uncontrolled 250.02 and Lumbar disc disease 722.93 [facility] [id number] [place] [address] 2546 July, [facility] [id number] [place] [address]- 2966 Jun, [facility] [id number], [place] [address]- 1436 Jun, [facility] [id number], [place] [address]- 7476 May, [facility] [id number], [place] [address]- 3616 May, [facility] [id number] [place] [address]- 6466 May, [facility] [id number], [place] [address]- 3616 May, [facility] [id number] [place] [address]- 7216 May, [facility] [id number], [place] [address]- 2546 May, [facility] [id number], [place] [address]- 2546 May, [facility] [id number], [place] [address]- 2546 May, [facility] [id number], [place] [address]- 4766 Apr, [facility] [address] [id number] [place] [address]- 0105 Apr, 2014 [facility] [place] [facility] [address] [id number] [place] [address]- 1656 Apr, 2014 [facility] [place] [facility] [address] [id number] [place] [address]- 9016 Apr, 2014 [facility] [place] [facility] [address] [id number] [place] [address]- 2236 Apr, [facility] [place] [facility] [address] [id number] [place] [address]- 8885 Apr, [facility] [place] [facility] [address] [id number] [place] [address]- 9070 Mar, [facility] [place] [facility] [address] [id number] [place] [address]- 5467 Mar, [facility] [address] [id number] [place] [address]- 2386 Mar, [facility] [address] [id number] [place] [address]- 4076 Mar, [facility] [address] [facility] [id number] [place] [address]- 6034 Feb, [facility] [address] [facility] [id number], [place] [address]- 5599 Feb, [facility] [address] [id number] [id number] Feb, [facility] [place] [facility] [address] [id number] [place] [address]- 6760 Feb, [facility] [place] [facility] [address] [facility] [id number] [place] [address]- 6546 Feb, [facility] [place] [facility] [address] [id number], [place] [address]- 9206 Feb, [facility] [place] [facility] [address] [id number], [place] [address]- 5386 Feb, [facility] [place] [facility] [address] [id number] [place] [address] Feb, [facility] [place] [facility] [address] [id number], [place] [address]- 2509 Feb, [facility] [place] [facility] [address] [facility] [id number] 9334 Feb, [facility] [place] [facility] [address] [id number], [place] [address]- 1469 Feb, [facility] [place] [facility] [address] [id number] [place] [address] Feb, [facility] [place] [facility] [address] [id number], [place] [address]- 7804 Jan, [facility] [place] [facility] [address] [id number], [place] [address]- 2165 Jan, [facility] [place] [facility] [address] [id number], [place] [address]- 9003 Jan, [facility] [place] [facility] [address] [id number], [place] [address]- 2185 Jan, [facility] [place] [facility] [address] [facility] [id number], [place] [address]- 3108 Jan, [facility] [place] [facility] [address] [id number], [place] [address]- 0991 Jan, [facility] [place] [facility] [address] [id number], [place] [address]- 5005 Nov, [facility] [address] [id number][place] [address] Nov, [facility] [place] [facility] [address] [id number], [place] [address]- 7728 Oct, [facility] [place] [facility] [address] [id number], [place] [address]- 0062 Oct, [facility] [address] [id number][place] [address] Aug, [facility] [place] [facility] [address] [facility] [id number] [place] [address]- 2546 Aug, [facility] [address] [facility] [id number] [place] [address] July, [facility] [place] [facility] [address] [facility] [id number] [place] [address]- 2546 July, [facility] [address] [facility] [id number][place] [address] July, [facility] [place] [facility] [address] [facility] [id number] [place] [address]- 2646 July, [facility] [place] [facility] [address] [facility] [id number] [place] [address]- 2886 Jun, [facility] [place] [facility] [id number] [place] [address]- 3286 Jun, [facility] [address] [facility] [id number][place] [address] May, [facility] [place] [facility] [id number] [place] [address]- 9694 May, [facility] [address] [facility] [id number][place] [address] Apr, [facility] [place] [facility] [id number], [place] [address]- 9026 Apr, [facility] [address] [facility] [id number][place] [address] Apr, [facility] [place] [facility] [address] [facility] [id number], [place] [address]- 2546 Apr, [facility] [address] [facility] [id number] [place] [address] Feb, [facility] [place] [facility] [address] [facility] [id number] [place] [address]- 2546 Feb, [facility] [address] [facility] [id number], [place] [address] Feb, [facility] [place] [facility] [address] [id number], [place] [address]- 8016 Feb, [facility] [address] [facility] [id number] [place] [address] Jan, [facility] [address] [id number], [place] [address]- 0376 Jan, [facility] [address] [facility] [id number] [place] [address] Jan, [facility] [place] [facility] [address] [id number], [place] [address]- 0962 Jan, [facility] [address] [facility] [id number] [place] [address]- 6384 Dec, [facility] [place] [facility] [address] [id number] [place] [address]- 0775 Dec, [facility] [id number], [place] [address]- 1690 Oct, [facility] [place] [facility] [address] [facility] [id number], [place] [address]- 1608 Oct, [facility] [place] [facility] [address] [facility] [id number] [place] [address]- 2740 Oct, [facility] [place] [facility] [address] [facility] [id number], [place] [address]- 5736 Oct, [facility] [place] [facility] [address] [facility] [id number], [place] [address]- 1258 Sep, [facility] [place] [facility] [address] [id number], [place] [address]- 1090 May, [facility] [place] [facility] [address] [facility] [id number], [place] [address]- 8673 May, [facility] [place] [facility] [address] [facility] [id number], [place] [address]- 2408 May, [facility] [place] [facility] [address] [facility] [id number], [place] [address]- 4606 Apr, [facility] [place] [facility] [address] [id number] [place] [address]- 9438 Apr, 2012 [facility] [place] [facility] [address] [id number] [place] [address]- 0192 Apr, 2012 [facility] [place] [facility] [address] [id number] [place] [address]- 3916 Apr, 2012 [facility] [place] [facility] [address] [id number] [place] [address]- 5064 Apr, 2012 [facility] [place] [facility] [address] [id number] [place] [address]- 9680 Apr, 2012 [facility] [place] [facility] [address] [id number] [place] [address]- 3969 Apr, [facility] [place] [facility] [address] [facility] [id number] [place] [address]- 8588 Jan, [facility] [place] [facility] [address] [id number] [place] [address]- 6506 Jan, [facility] [place] [facility] [address] [facility] [id number] [place] [address]- 7742 Aug, [facility] [place] [facility] [address] [facility] [id number] [place] [address]- 0728 July, [facility] [place] [facility] [address] [facility] [id number], [place] [address]- 0808 May, [facility] [place] [facility] [address] [facility] [id number], [place] [address]- 9545 May, [facility] [place] [facility] [address] [id number] [place] [address]- 8545 Feb, [facility] [place] [facility] [address] [id number] [place] [address]- 9138 Dec, [facility] [place] [facility] [address] [facility] [id number], [place] [address]- 5082 Feb, [facility] [place] [facility] [address] [id number], [place] [address]- 3425 Feb, [facility] [address] [facility] [id number], [place] [address]- 8690 Feb, [facility] [address] [facility] [id number], [place] [address]- 4321 Feb, [facility] [address] [id number], [place] [address]- 8146 Jan, [facility] [address] [id number], [place] [address]- 9370 Jan, [facility] [address] [facility] [id number], [place] [address]- 7766 Jan, [facility] [address] [facility] [id number], [place] [address]- 2643 Jan, IMMUNIZATIONS No Known Immunizations SOCIAL HISTORY Never Assessed REASON FOR VISIT [place] [place] VITAL SIGNS MEDICATIONS Medication Instructions Dosage Frequency Start Date End Date Duration Status Humalog 100 unit/mL inject 45 Units by Subcutaneous route 3 times per day before meals Feb, Active Symbicort 160-4.5 mcg/actuation inhale 2 puffs by inhalation route 2 times per day in the morning and evening Feb, Active Flonase 50 mcg/actuation 1 sprays by Nasal route 2 times per day in each nostril Feb, Active metformin 1,000 mg 1 tablet by Oral route 2 times per day Feb, Active Levemir 100 unit/mL 60 units by Subcutaneous route 2 times per day Feb, Active Hydrochlorothiazide 25 mg Take 1 tablet by Oral route 1 time per day Feb, Active MS Contin 30 mg 1 tablet by Oral route every 12 hours May, Active Flexeril 10 mg 1 tablet by Oral route 1 time per day PRN hs Apr, Active Ventolin 90 mcg/actuation 2 puffs by Inhalation route 4 times per day Feb, Active amitriptyline 50 mg 1 tablet by Oral route 1 time per day Feb, Active Percocet 5-325 mg take 1 tablet by Oral route as needed 3 times per day PRN May, Active Amaryl 4 mg 1 tablet by Oral route 1 time per day Feb, Active Lisinopril 20 mg take 1 tablet by Oral route 2 times per day Feb, Active metoprolol 50 mg 1 tablet by Oral route 2 times per day Feb, Active Doxycycline Hyclate 100 mg 1 tablet by Oral route 2 times per day for 10 days Jan, Active meclizine 12.5 mg 1 tablet by Oral route 4 times per day PRN Feb, Active Albuterol 2.5 mg /3 mL (0.083 %) 2.5 mg by Inhalation route 4 times per day Apr, Active Gabapentin 600 mg 1 Tablet 3 times per day Feb, Active RESULTS No Results PROCEDURES No Known procedures INSTRUCTIONS MEDICATIONS ADMINISTERED No Known Medications MEDICAL (GENERAL) HISTORY Type Description Date Medical History hypertension Medical History chronic obstructive pulmonary disease (COPD) Medical History hernia Medical History type II diabetes Medical History neck pain Medical History neuropathy Medical History back pain Medical History phimosis Surgical History arthroscopic knee surgery (B) Surgical History orchiectomy w/ penile prothesis Surgical History orthopedic surgery-letf shoulder repair, R baldo fx with hardware placed, hardware then removed Hospitalization History [facility] 08/07
[2018-07-22] MEDS ORDERED: NS IV 1000 ML 1,000 ML ONE (08:29)
[2018-07-22] MEDS: NS IV 1000 ML 1,000 ML IV SCH ×6 (08:35→21:06)
[2018-07-22 08:43] LABS: BASOPHILS % (AUTO) 0 % (0-10); EOSINOPHILS % (AUTO) 0 % (0-10); HEMATOCRIT 44 % (40-54); HEMOGLOBIN 13.6 G/DL (13.3-17.7); LYMPHOCYTES # (AUTO) 1.4 X 10^3 (1.0-4.0); LYMPHOCYTES % (AUTO) 8 % (12-44); MEAN CORPUSCULAR HEMOGLOBIN 29 PG (25-34); MEAN CORPUSCULAR HGB CONC 31 G/DL (32-36); MEAN CORPUSCULAR VOLUME 94 FL (80-99); MEAN PLATELET VOLUME 11.2 FL (7.4-10.4); MONOCYTES # (AUTO) 2.3 X 10^3 (0.0-1.0); MONOCYTES % (AUTO) 14 % (0-12); NEUTROPHILS # (AUTO) 12.4 X 10^3 (1.8-7.8); NEUTROPHILS % (AUTO) 77 % (42-75); PLATELET COUNT 292 10^3/uL (130-400); RED CELL DISTRIBUTION WIDTH 15.4 % (10.0-14.5)
[2018-07-22] MEDS ORDERED: CEFEPIME INJECTION 1,000 MG in WATER (STERILE) FOR INJECTION 10 ML IV ONE (08:45)
[2018-07-22] MEDS ORDERED: RT-ALBUTEROL/IPRATROPIUM 3 ML (DUONEB) VIAL INH ONE (08:45)
[2018-07-22] MEDS ORDERED: NS (IVPB) 250 ML ONE (08:49)
[2018-07-22 08:55] LABS: PROTHROMBIN TIME PATIENT 13.6 SEC (12.2-14.7)
--- NOTE | 2018-07-22 08:55 | NUR ---
ET TUBE PLACED BT DR KAUR #8 25AT THE LIPS OR 24 AT THE TEETH 0903 VERSERD 5MG GIJVEN IV. 0907 #[address] KAUR 0922 VERSED 5MG GIVEN IV FOR PATIENT MOVING. 0932 HR 102 B/P 118/55 SAO2 97% PER VENT
[2018-07-22 09:03] LABS: ALANINE AMINOTRANSFERASE 39 U/L (0-55); ALBUMIN 4.2 GM/DL (3.2-4.5); ALKALINE PHOSPHATASE 71 U/L (40-136); BUN/CREATININE RATIO 15; CALCIUM 8.8 MG/DL (8.5-10.1); CARBON DIOXIDE 20 MMOL/L (21-32); CHLORIDE 104 MMOL/L (98-107); CREATININE SERUM 3.73 MG/DL (0.60-1.30); GFR ESTIMATED 17; GLUCOSE 256 MG/DL (70-105); SODIUM 139 MMOL/L (135-145); TOTAL PROTEIN 7.3 GM/DL (6.4-8.2)
[2018-07-22] MEDS: NOREPINEPHRINE 4 MG/4 ML (LEVOPHED) AMP IV ONE ×4 (09:06→11:06)
--- NOTE | 2018-07-22 09:06 | NUR ---
NOREP STARTED WITH 100KG AT 0.1MCG /KG MIN
[2018-07-22 09:14] LABS: POTASSIUM 6.6 MMOL/L (3.6-5.0)
[2018-07-22] MEDS ORDERED: RT-ALBUTEROL SULF 2.5 MG/3 ML PRE-MIX VIAL ONE (09:20)
[2018-07-22] MEDS ORDERED: PROPOFOL DRIP (ICU) 100 ML IV ONE (09:38)
--- NOTE | 2018-07-22 09:39 | NUR ---
X RAY HERE TO CHECK CENTRAL LINE PLACEMENT.
[2018-07-22] MEDS ORDERED: RT-ALBUTEROL SULF 2.5 MG/3 ML PRE-MIX VIAL INH STA (09:40)
[2018-07-22] MEDS ORDERED: CALCIUM GLUC. 10% 4.65 MEQ/10 ML VIAL IV ONE (09:45)
[2018-07-22] MEDS ORDERED: CALCIUM GLUCONATE 1 GM/NS 50 ML IV ONE ×2 (09:45)
--- NOTE | 2018-07-22 09:45 | NUR ---
CENTRAL LINE IN GOOD POSTION
--- NOTE | 2018-07-22 09:47 | ED General ---
General Chief Complaint: Unresponsive Stated Complaint: SEPTIC SHOCK, LETHARGIC Source of Information: Patient, EMS, Family Exam Limitations: Other History of Present Illness Date Seen by Provider: Jul 22, 2018 Time Seen by Provider: 08:25 Initial Comments The patient presents by [facility] from the patient's home with chief complaint of altered mental status. They state when they arrived his blood sugar was 270 and his blood pressure was in the 60s systolic. They were unable to establish an IV. The patient does have known use of diazepam and morphine but they do not have an IV they did not give any Narcan. They do not know much about the patient but he does have a history of diabetes, COPD. family remarks that yesterday afternoon when the patient came in he was hot sweaty but did not have a fever that they are aware of and had several episodes of emesis without blood in it. No diarrhea. No one else is sick in the family. The patient did not feel well so he went to lay down and they got him an appointment primary care doctor on Sunday. Throughout the night however the patient did not improve and in the morning when they could not get him to wake up they called EMS. The patient is obtunded and unable to give any meaningful history. The states that the patient has not taken any extra opiates or benzos. Patient does not use a routine inhaler and has not been using it more lately. He has not had a cough fever or chills lately nor has he had any other specific complaint. Allergies and Home Medications Allergies Coded Allergies: No Known Drug Allergies (Unverified , 12/09/14) Home Medications Albuterol Sulfate 18 Gm Hfa.aer.ad, 1-2 PUFF IH QID, (Reported) Amitriptyline HCl 50 Mg Tablet, 50 MG PO HS, (Reported) Amlodipine Besylate 5 Mg Tablet, 5 MG PO DAILY, (Reported) Budesonide/Formoterol Fumarate 10.2 Gm Hfa.aer.ad, 2 PUFF IH BID, (Reported) Cholecalciferol (Vitamin D3) 1,000 Unit Capsule, 1,000 UNIT PO DAILY, (Reported) Cyclobenzaprine HCl 10 Mg Tablet, 10 MG PO HS, (Reported) Diazepam 2 Mg Tablet, 2 MG PO Q8H PRN for ANXIETY, (Reported) Diclofenac Sodium 75 Mg Tablet.dr, 75 MG PO BID, (Reported) Fluticasone Propionate 16 Gm Celina.susp, 2 SPRAYS NSEACH DAILY, (Reported) Gabapentin 600 Mg Tablet, 600 MG PO TID, (Reported) Glimepiride 4 Mg Tablet, 4 MG PO BID, (Reported) Insulin Aspart 100 Unit/1 Ml Susp, 30 UNITS SQ AC, (Reported) Insulin Determir 1,000 Units/10 Ml Soln, 30 UNITS SQ BID, (Reported) Lisinopril 20 Mg Tablet, 20 MG PO BID, (Reported) Meclizine HCl 25 Mg Tablet, 12.5 MG PO QID, (Reported) TAKES 1/2 OF A (25 MG) TABLET Morphine Sulfate 60 Mg Tablet.er, 60 MG PO Q12H, (Reported) Oxycodone HCl/Acetaminophen 1 Each Tablet, 1 TAB PO TID PRN for PAIN-MODERATE, ( Reported) Solifenacin Succinate 5 Mg Tablet, 5 MG PO DAILY, (Reported) Patient Home Medication List Home Medication List Reviewed: Yes Review of Systems Review of Systems Constitutional: see HPI (patient unable or report any review of systems so it is primarily by his ); No chills, No fever; malaise EENTM: No ear discharge, No ear pain Respiratory: No cough, No phlegm, No short of breath, No wheezing Cardiovascular: No chest pain, No edema Gastrointestinal: No constipation, No diarrhea, No dysphagia; nausea, vomiting Genitourinary: No discharge, No dysuria Musculoskeletal: No back pain, No joint pain Past Vjwtlzh-Rvpaoc-Fczgir Hx Patient Social History Alcohol Use: Denies Use Recreational Drug Use: No Smoking Status: Former Smoker Type Used: Cigarettes, Smokeless Tobacco Former Smoker, Quit: Jan 26, 2015 Recent Hopitalizations: No Immunizations Up To Date Tetanus Booster (TDap): Unknown PED Vaccines UTD: No Seasonal Allergies Seasonal Allergies: No Past Medical History Surgeries: Yes (L SHOULDER, R ANKLE, PENILE IMPLANT, ) Testicular, Vasectomy Respiratory: Yes (oxygen at HS, prn during the day) COPD Currently Using CPAP: No Currently Using BIPAP: No Cardiac: Yes Hypertension Neurological: Yes Neuropathy Reproductive Disorders: Yes (ARTIFICAL TESTICLE, ) Sexually Transmitted Disease: No HIV/AIDS: No Genitourinary: Yes Renal Failure Gastrointestinal: No Musculoskeletal: Yes Arthritis, Chronic Back Pain Endocrine: Yes Diabetes, Insulin dep HEENT: No Cancer: No Did You Recieve Any Treatments: No Psychosocial: No Integumentary: No Blood Disorders: No Adverse Reaction/Blood Tranf: No Family Medical History Diabetes mellitus 19 MOTHER G8 SISTER Hypertension 19 FATHER 19 MOTHER Myocardial infarction 19 FATHER (STROKES) Heart Disease, CVA, Diabetes Physical Exam-Suspected Sepsis Physical Exam Vital Signs Vital Signs - First Documented 07/22/18 07/22/18 07/22/18 08:17 10:32 11:45 Temp 99.7 Pulse 110 Resp 18 B/P (MAP) 80/59 (66) Pulse Ox 89 O2 Delivery Nasal Cannula O2 Flow Rate 60.00 FiO2 60 Capillary Refill : Height, Weight, BMI Height: 6'1.00" Weight: 240lbs. 0.5oz. [id number]; 37.0 BMI Method:Stated General Appearance: Chronically ill, Obese, Severe Distress Eyes: Bilateral Eye Normal Inspection, Bilateral Eye PERRL HEENT: TMs Normal, Normal ENT Inspection, Pharynx Normal, Moist Mucous Membranes (mildly dry with ibarra thick mucus the back of the throat); No Tonsillar Exudate, No Tonsillar Enlargement Neck: Full Range of Motion, Normal Inspection, Non Tender, Supple Respiratory: No Accessory Muscle Use, Decreased Breath Sounds, Respiratory Distress (moderate to severe), Wheezing (faint) Cardiovascular: Regular Rate, Rhythm, No JVD, No Murmur, Normal Peripheral Pulses Gastrointestinal: Normal Bowel Sounds, No Organomegaly, Non Tender, Soft Extremity: Normal Capillary Refill, Normal Inspection, Non Tender Neurologic/Psychiatric: Other (GCS 6 E2V1M3) Skin: normal color, diaphoresis Focused Exam Sepsis Stage: Septic Shock Possible Source: Unknown Lactate Level 07/22/18 10:47: Lactic Acid Level 3.55*H 07/22/18 13:30: Lactic Acid Level 2.46*H 07/22/18 16:00: Lactic Acid Level 1.77 Time of Focused Exam: 10:15 Respiratory: Lungs Clear, Normal Breath Sounds, No Accessory Muscle Use, Respiratory Distress (orotracheally intubated with oxygen saturation in the 96- 98% range) Cardiovascular: Regular Rate, Rhythm, No Edema, No Murmur, Normal Peripheral Pulses Capillary Refill: Less Than 3 Seconds Peripheral Pulses: 2+ Radial Pulses (R), 2+ Radial Pulses (L) Skin: normal color, warm/dry Lactic Acid Level Laboratory Tests Test 07/22/18 13:30 07/22/18 16:00 Lactic Acid Level 2.46 MMOL/L (0.50-2.00) *H 1.77 MMOL/L (0.50-2.00) Within 3hrs of presentation: Admin fluids, Admin ABX, Blood cultures prior to ABX's, Focus exam, Lactate level, Other (Levophed) Procedures/Interventions Lumen: triple Central Line Procedure: betadine prep (chlorhexidine) Position: internal jugular (R) Anesthesia: Lidocaine Volume Anesthetic (ccs): 3 Complications: see note Post Position: sutured, good blood return, position confirmed w/ CXR Clean the site chlorhexidine prep and everybody was done in the usual sterile gear and the drapes were placed in the usual fashion. We then used ultrasound to ascertain the right IJ and easily accessed with the introducer needle. A piece from the guidewire to guidewire into the introducer needle was missing so we called for another central line kit to replace it. Guidewire threaded easily on the second attempt after we obtained the appropriate tip with no ectopy. A small esther was made in the skin using the supplied 11 blade and the needle was removed. The guidewire was held in place while a dilator was passed and removed. Triple lumen catheter and then flushed with sterile saline and then threaded into place at 14 cm down the guidewire. Guidewire was removed. 2 different stitches were used to place the triple-lumen catheter in place and a Biopatch was put at the base. A sterile dressing was applied. X-ray was obtained showing the distal tip of the triple-lumen catheter in the SVC just above the right atria. Does not cross the midline and there was no evidence of pneumothorax. Patient tolerated the procedure well. Date of ETT Placement: Jul 22, 2018 Time of ETT Placement: 09:15 Intubation Method: orotracheal Tube Size: 8 Medications: Etomidate, Succinylcholine Positive End Tide CO2: Yes Breath Sounds after Intubation: bilateral-equal Intubation Complications: no complications Post Intubation Xray: Yes 2cm above antoinette with good lung latham 20 mg of etomidate were selected as the patient was already sedate. We then gave 100 mg of succinylcholine after a few minutes and past. When the patient had a few fasciculations we then tested for gauze corneal reflexes and then hyperventilated the patient using the Ambumask and 100% oxygen. Patient's saturations were 98% and we used a 3 Terrie with a 8.0 ET tube and stylette to get a good clean view of the bottom said he 5% of the vocal cords which were paralyzed. We easily passed the tube at 24 at the teeth. We inflated the cuff and gave of breath which caused the tube fogged on exhalation and the capnography paper changed color appropriately. We had good breath sounds bilaterally. Chest rise and the patient's oxygen saturations never went below 94 %. Chest x-ray demonstrated 2-3 cm between the tip of the ET tube and the antoinette. Good lung latham with a poor inspiratory effort on x-ray timing. Additional Procedures: gastric tube replacement Progress After the patient had been intubated in the tube secured we then placed down his left naris a 18 [place] nasogastric tube using water-based lubricant on second attempt we gained access the stomach and got return of stomach contents. We gave her 30 cc of air incoherent mumbling over the epigastric region. The distal tip of the NG tube was seen overlying the gastric bubble shadow. The tube was secured in place. Was placed on low intermittent suction. Tolerated the procedure well. Progress/Results/Core Measures Suspected Sepsis SIRS Temperature: Pulse: Respiratory Rate: Laboratory Tests 07/22/18 08:33: White Blood Count 16.0H Blood Pressure / Mean: 07/22/18 10:47: Lactic Acid Level 3.55*H 07/22/18 13:30: Lactic Acid Level 2.46*H 07/22/18 16:00: Lactic Acid Level 1.77 Laboratory Tests 07/22/18 08:33: Creatinine 3.73H, INR Comment 1.0, Platelet Count 292, Total Bilirubin 1.0 07/22/18 16:00: Creatinine 2.97#H, Total Bilirubin 0.8 Results/Orders Lab Results Laboratory Tests Test 07/22/18 08:33 07/22/18 09:58 07/22/18 10:01 07/22/18 10:04 Range/Units White Blood Count 16.0 H 4.3-11.0 10^3/uL Red Blood Count 4.65 4.35-5.85 10^6/uL Hemoglobin 13.6 13.3-17.7 G/DL Hematocrit 44 40-54 % Mean Corpuscular Volume 94 80-99 FL Mean Corpuscular Hemoglobin 29 25-34 PG Mean Corpuscular Hemoglobin Concent 31 L 32-36 G/DL Red Cell Distribution Width 15.4 H 10.0-14.5 % Platelet Count 292 130-400 10^3/uL Mean Platelet Volume 11.2 H 7.4-10.4 FL Neutrophils (%) (Auto) 77 H 42-75 % Lymphocytes (%) (Auto) 8 L 12-44 % Monocytes (%) (Auto) 14 H 0-12 % Eosinophils (%) (Auto) 0 0-10 % Basophils (%) (Auto) 0 0-10 % Neutrophils # (Auto) 12.4 H 1.8-7.8 X 10^3 Lymphocytes # (Auto) 1.4 1.0-4.0 X 10^3 Monocytes # (Auto) 2.3 H 0.0-1.0 X 10^3 Eosinophils # (Auto) 0.0 0.0-0.3 10^3/uL Basophils # (Auto) 0.0 0.0-0.1 10^3/uL Neutrophils % (Manual) 61 % Lymphocytes % (Manual) 9 % Monocytes % (Manual) 8 % Eosinophils % (Manual) 0 % Basophils % (Manual) 0 % Metamyelocytes % 3 % Band Neutrophils 19 % Anisocytosis SLIGHT Prothrombin Time 13.6 12.2-14.7 SEC INR Comment 1.0 0.8-1.4 Activated Partial Thromboplast Time 33 24-35 SEC Sodium Level 139 135-145 MMOL/L Potassium Level 6.6 #*H 3.6-5.0 MMOL/L Chloride Level 104 98-107 MMOL/L Carbon Dioxide Level 20 L 21-32 MMOL/L Anion Gap 15 H 5-14 MMOL/L Blood Urea Nitrogen 57 H 7-18 MG/DL Creatinine 3.73 H 0.60-1.30 MG/DL Estimat Glomerular Filtration Rate 17 BUN/Creatinine Ratio 15 Glucose Level 256 H 70-105 MG/DL Calcium Level 8.8 8.5-10.1 MG/DL Corrected Calcium 8.6 8.5-10.1 MG/DL Total Bilirubin 1.0 0.1-1.0 MG/DL Aspartate Amino Transf (AST/SGOT) 45 H 5-34 U/L Alanine Aminotransferase (ALT/SGPT) 39 0-55 U/L Alkaline Phosphatase 71 40-136 U/L Troponin I < 0.028 <0.028 NG/ML Total Protein 7.3 6.4-8.2 GM/DL Albumin 4.2 3.2-4.5 GM/DL Salicylates Level < 5.0 L 5.0-20.0 MG/DL Acetaminophen Level < 10 L 10-30 UG/ML Serum Alcohol < 10 <10 MG/DL Blood Gas Puncture Site R RAD Blood Gas Patient Temperature 99.7 Arterial Blood pH 7.24 *L 7.37-7.43 Arterial Blood Partial Pressure CO2 52 H 35-45 MMHG Arterial Blood Partial Pressure O2 99 H 79-93 MMHG Arterial Blood HCO3 21 L 23-27 MMOL/L Arterial Blood Total CO2 22.6 21.0-31.0 MMOL/L Arterial Blood Oxygen Saturation 98 94-100 % Arterial Blood Base Excess -5.1 L -2.5-2.5 MMOL/L Vipul Test NA Blood Gas Ventilator Setting NO Blood Gas Inspired Oxygen 60% Urine Color YELLOW Urine Clarity CLEAR Urine pH 5 5-9 Urine Specific [place] 1.025 H 1.016-1.022 Urine Protein 3+ H NEGATIVE Urine Glucose (UA) NEGATIVE NEGATIVE Urine Ketones NEGATIVE NEGATIVE Urine Nitrite NEGATIVE NEGATIVE Urine Bilirubin 1+ H NEGATIVE Urine Urobilinogen 1 NORMAL MG/DL Urine Leukocyte Esterase 1+ H NEGATIVE Urine RBC (Auto) NEGATIVE NEGATIVE Urine RBC RARE /HPF Urine WBC 0-2 /HPF Urine Squamous Epithelial Cells NONE /HPF Urine Crystals PRESENT H /LPF Urine Amorphous Sediment RARE JULIETA URATES H /LPF Urine Bacteria TRACE /HPF Urine Casts PRESENT /LPF Urine Hyaline Casts 2-5 H /LPF Urine Mucus SMALL H /LPF Urine Culture Indicated CULTURE PENDING Test 07/22/18 10:47 07/22/18 13:30 07/22/18 15:08 07/22/18 16:00 Range/Units Lactic Acid Level 3.55 *H 2.46 *H 1.77 0.50-2.00 MMOL/L Blood Gas Puncture Site L RAD Blood Gas Patient Temperature 97.7 Arterial Blood pH 7.31 *L 7.37-7.43 Arterial Blood Partial Pressure CO2 42 35-45 MMHG Arterial Blood Partial Pressure O2 136 H 79-93 MMHG Arterial Blood HCO3 21 L 23-27 MMOL/L Arterial Blood Total CO2 22.1 21.0-31.0 MMOL/L Arterial Blood Oxygen Saturation 99 94-100 % Arterial Blood Base Excess -4.5 L -2.5-2.5 MMOL/L Vipul Test YES-POS Blood Gas Ventilator Setting YES Blood Gas Inspired Oxygen 60% Sodium Level 144 135-145 MMOL/L Potassium Level 4.8 3.6-5.0 MMOL/L Chloride Level 112 H 98-107 MMOL/L Carbon Dioxide Level 20 L 21-32 MMOL/L Anion Gap 12 5-14 MMOL/L Blood Urea Nitrogen 58 H 7-18 MG/DL Creatinine 2.97 #H 0.60-1.30 MG/DL Estimat Glomerular Filtration Rate 22 BUN/Creatinine Ratio 20 Glucose Level 189 H 70-105 MG/DL Calcium Level 8.1 L 8.5-10.1 MG/DL Corrected Calcium 8.5 8.5-10.1 MG/DL Phosphorus Level 3.9 2.3-4.7 MG/DL Magnesium Level 1.8 1.8-2.4 MG/DL Total Bilirubin 0.8 0.1-1.0 MG/DL Aspartate Amino Transf (AST/SGOT) 56 H 5-34 U/L Alanine Aminotransferase (ALT/SGPT) 42 0-55 U/L Alkaline Phosphatase 57 40-136 U/L Troponin I < 0.028 <0.028 NG/ML Total Protein 5.9 L 6.4-8.2 GM/DL Albumin 3.5 3.2-4.5 GM/DL Amylase Level 30 25-125 U/L Lipase 8 8-78 U/L My Orders Orders - STACEY KAUR Cbc With Automated Diff (07/22/18 08:31) Comprehensive Metabolic Panel (07/22/18 08:31) Blood Culture (07/22/18 08:31) Sputum Culture (07/22/18 08:31) Urinalysis (07/22/18 08:31) Protime With Inr (07/22/18 08:31) Partial Thromboplastin Time (07/22/18 08:31) Chest 1 View, Ap/Pa Only (07/22/18 08:31) Ed Iv/Invasive Line Start (07/22/18 08:31) Ed Iv/Invasive Line Start (07/22/18 08:31) Ekg Tracing (07/22/18 08:31) Troponin I (07/22/18 08:31) Vital Signs Adult Sepsis Patie Q15M (07/22/18 08:31) O2 (07/22/18 08:31) Remove Rings In Anticipation O (07/22/18 08:31) Lactic Acid Analyzer (07/22/18 08:31) Ns Iv 1000 Ml (Sodium Chloride 0.9%) (07/22/18 08:31) Cefepime Injection (Maxipime Injection) (07/22/18 08:45) Ed Iv/Invasive Line Start (07/22/18 08:31) Arterial Blood Gas (07/22/18 08:31) Ns Iv 1000 Ml (Sodium Chloride 0.9%) (07/22/18 08:29) Albuterol/Ipra Inhalation Soln (Duoneb I (07/22/18 08:45) Svn Small Volume Nebulizer (07/22/18 08:38) Manual Differential (07/22/18 08:33) Norepinephrine (Levophed) (07/22/18 08:48) Ns (Ivpb) (Sodium Chloride 0.9%) (07/22/18 08:49) Norepinephrine (Levophed) (07/22/18 08:49) Calcium Gluconate 10% Inj (Calcium Glu (07/22/18 09:18) Albuterol Pre-Mix Nebs (Rt) (Proventil (07/22/18 09:20) Calcium Gluconate 10% Inj (Calcium Glu (07/22/18 09:45) Propofol Drip (Icu) (Diprivan Drip (Icu) (07/22/18 09:45) Albuterol Pre-Mix Nebs (Rt) (Proventil (07/22/18 09:40) Calcium Gluconate 10% Inj (Calcium Glu (07/22/18 09:45) Propofol Drip (Icu) (Diprivan Drip (Icu) (07/22/18 09:38) Catheter(Urinary) Insert & Ass 03,15 (07/22/18 10:11) Arterial Blood Draw (07/22/18 10:39) Norepinephrine (Levophed) (07/22/18 11:15) Etomidate Injection (Amidate Injection) (07/22/18 11:40) Midazolam Injection (Versed Injection) (07/22/18 11:40) Succinylcholine Injection (Succinylcholi (07/22/18 11:40) Urine Culture (07/22/18 10:04) Medications Given in ED Current Medications Medications Dose Ordered Sig/Jaspal Route Start Time Stop Time Status Last Admin Dose Admin Albuterol/ Ipratropium 3 ml ONCE ONCE INH 07/22/18 08:45 07/22/18 08:46 DC 07/22/18 10:28 3 ML Calcium Gluconate 4.65 meq/Sodium Chloride 60 ml @ 240 mls/hr ONCE ONCE IV 07/22/18 09:45 07/22/18 09:59 DC 07/22/18 09:48 240 MLS/HR Cefepime HCl 1000 mg/Sterile Water 10 ml @ 200 mls/hr ONCE ONCE IV 07/22/18 08:45 07/22/18 08:47 DC 07/22/18 10:44 200 MLS/HR Propofol 100 ml @ ud STK-MED ONCE IV 07/22/18 09:38 07/22/18 09:49 DC 07/22/18 09:50 20 MLS/HR Vital Signs/I&O 07/22/18 07/22/18 07/22/18 07/22/18 08:17 09:50 10:32 10:49 Temp 99.7 Pulse 110 108 106 Resp 18 22 18 B/P (MAP) 80/59 (66) 128/79 125/57 (79) Pulse Ox 89 99 98 O2 Delivery Nasal Cannula Mechanical Ventilator FiO2 60 07/22/18 07/22/18 07/22/18 07/22/18 11:40 11:45 11:50 11:55 Temp 97.4 Pulse 104 103 104 Resp 20 37 B/P (MAP) 97/49 (65) 97/49 (65) Pulse Ox 97 91 O2 Delivery Mechanical Ventilator Mechanical Ventilator Mechanical Ventilator O2 Flow Rate 60.00 60.00 FiO2 60 07/22/18 07/22/18 07/22/18 07/22/18 12:00 12:00 13:00 13:10 Pulse 104 104 99 101 Resp 22 22 21 B/P (MAP) 105/47 (66) 97/49 (65) 97/50 (66) Pulse Ox 100 100 100 O2 Delivery Mechanical Ventilator Mechanical Ventilator Mechanical Ventilator O2 Flow Rate 60.00 60.00 60.00 07/22/18 07/22/18 07/22/18 07/22/18 13:50 14:00 14:49 15:00 Pulse 95 90 90 Resp 21 22 21 B/P (MAP) 116/56 115/51 (72) 120/56 (77) Pulse Ox 100 100 100 O2 Delivery Mechanical Ventilator Mechanical Ventilator O2 Flow Rate 60.00 60.00 FiO2 60 Capillary Refill : ECG Initial ECG Impression Date: Jul 22, 2018 Initial ECG Impression Time: 10:15 Initial ECG Rate: 104 Initial ECG Rhythm: S.Tach Initial ECG Intervals: QT (474) Initial ECG Impression: Nonspecific Changes Initial ECG Comparisson: Changed Comment New Left bundle branch block sinus tachycardia. Diagnostic Imaging Diagonstic Imaging: Xray Plain Films/CT/US/NM/MRI: chest (1v) Comments [facility], [place] NAME: [facility] REC#: [id number] PT STATUS: REG ER : 1955 PHYSICIAN: STACEY KAUR MD ADMIT DATE: 07/22/18/ER Draft Date of Exam:07/22/18 CHEST 1 VIEW, AP/PA ONLY INDICATION: Septic shock and lethargy. Comparison is made with prior examination from 04/22/2017. FINDINGS: There is cardiomegaly. There is some bibasilar atelectasis and/or pneumonitis. ET and NG tubes are in satisfactory position. There is no pneumothorax. Mediastinum is unremarkable. IMPRESSION: Cardiomegaly and some bibasilar atelectasis and/or pneumonitis. There may be a small left pleural effusion. Dictated on workstation # [id number] Dict: 07/22/18 [id number] Trans: 07/22/18 0955 KB [id number] Interpreted by: HAZEL MILLER MD Electronically signed by: Reviewed: Reviewed by Me Critical Care Note Critical Care Start Time: 08:25 Stop Time: 10:00 Total Time (minutes) 95 min Progress The patient arrived by EMS without an IV in shocky blood pressure with a map in the 40s. First attempt IV put in a 20-gauge in his left forearm so we started IV fluids. We gayatri labs and decided since his GCS was low he has a history of vomiting all night last night and he was not protecting his airway that we would protect at first and then place a central line. He was easily intubated and his oxygen sats even on oxygen mask at 12 L/m were about 88%. With Ambu bag mask were able to get him up to 98% and was reintubated we kept him 96-100% FiO2 of 0.60, tidal volume 450 and PEEP of 5 with a respiratory rate of 22. When you have a history of COPD so we started a DuoNeb. His lungs wheezing but he was diminished. Suspect obesity hypoventilation syndrome playing a part in his inability to appropriately oxygenate. An ABG demonstrated that he had mildly elevated CO2 in the 50s with a good partial pressure of oxygen so we left the FiO2 alone and increased his tidal volume to 500 leaving the rest of the settings same. He continued to sat well. Plan to repeat his ABG in the ICU. We started a central line which x-ray confirmed the central line, ET tube and NG tube are all in good position. We then had already started peripherally some Levophed using the protocol from the ER. This brought his blood pressure up to over 100 systolic. We noticed that his right IJ was full on ultrasound but had already ordered 3 L of normal saline for septic shock. By the time we started Levophed less than a liter had gone in as we only had 1 small access. We started the patient on propofol. We have to give 2 separate doses of Versed for sedation during the procedures. We initially considered giving Narcan that since the patient is also on diazepam and we figured it might not be a good idea to lift his sedation and risk seizures. Neither the family or EMS indicated that the patient had any habits of overdoing his narcotics. Chest x- ray and urine failed to reveal a source of infection. The next place to think about since he's having vomiting would be scanning the belly but his blood pressure was not stable left go to the CT scanner so we decided to admit him to the ICU for further workup inpatient. Patient's blood pressure has been labile as we were adjusting his Levophed. Sedation was good on the propofol but it brought his blood pressure down. Several times throughout the course we updated his and daughter in the family room. Critical potassium was called back so in addition to the DuoNeb we gave 3 more doses of albuterol and a gram of calcium gluconate. By the time the patient went to the ICU most of his 3 L of fluids were in cultures were obtained and cefepime was given. Departure Communication (Admissions) Time/Spoke to Admitting Phy: 10:00 Discussed the case with Dr. Tucker she agrees to accept the patient. He would like for ED to start antibiotics and he will write orders. Impression Primary Impression: Septic shock Additional Impressions: Acute hyperkalemia Acute kidney injury COPD (chronic obstructive pulmonary disease) Qualified Codes: J44.9 - Chronic obstructive pulmonary disease, unspecified Acute respiratory failure with hypoxemia Left bundle branch block (LBBB) determined by electrocardiography Disposition: ADMITTED INPATIENT Condition: Stable Admissions Decision to Admit Reason: Admit from ER (General) Decision to Admit/Date: Jul 22, 2018 Time/Decision to Admit Time: 09:47 Departure-Patient Inst. Referrals: LAUREN RODRIGUEZ MD (PCP) Primary Care Physician Copy Copies To 1: LAUREN RODRIGUEZ MD, TITUS J Jul 22, 2018 09:47
[2018-07-22] MEDS: CALCIUM GLUC. 10% 4.65 MEQ/10 ML VIAL ONE ×2 (09:48→11:06)
--- NOTE | 2018-07-22 09:48 | NUR ---
CALCIUM GLUCCONATE STARTED 1001 CALCIUM INFUSED 1006 BLOOD CULTURE 2 OBAINED WITH FLU SWAB 2NNND LITER OF NS STARTED
--- NOTE | 2018-07-22 09:50 | NUR ---
DIPVAN STARTED AT 20MG HR
--- NOTE | 2018-07-22 09:55 | Diagnostic Imaging Report ---
INDICATION: Septic shock and lethargy. Comparison is made with prior examination from 04/22/2017. FINDINGS: There is cardiomegaly. There is some bibasilar atelectasis and/or pneumonitis. ET and NG tubes are in satisfactory position. There is no pneumothorax. Mediastinum is unremarkable. IMPRESSION: Cardiomegaly and some bibasilar atelectasis and/or pneumonitis. There may be a small left pleural effusion. Dictated by: Dictated on workstation # [id number]
[2018-07-22 10:06] LABS: BAND NEUTROPHILS 19 %; BASOPHILS % (MANUAL) 0 %; EOSINOPHILS % (MANUAL) 0 %; LYMPHOCYTES % (MANUAL) 9 %; METAMYELOCYTES % 3 %; MONOCYTES % (MANUAL) 8 %; NEUTROPHILS % (MANUAL) 61 %
--- NOTE | 2018-07-22 10:06 | NUR ---
2NS HUNG DUE TO NOT HAVING IV ASSCESS HAD TO WAIT FOR CENTRAL LINE PLACEMENT.
[2018-07-22 10:07] LABS: ANISOCYTOSIS SLIGHT
[2018-07-22 10:20] LABS: ABG BASE EXCESS -5.1 MMOL/L (-2.5-2.5); ABG OXYGEN SATURATION 98 % (94-100); ABG PCO2 52 MMHG (35-45); ABG PO2 99 MMHG (79-93); ABG TCO2 22.6 MMOL/L (21.0-31.0)
[2018-07-22 10:22] LABS: INSPIRED O2 60%; PATIENT TEMP 99.7; VENTILATOR NO
[2018-07-22 10:24] LABS: ABG PH 7.24 (7.37-7.43)
[2018-07-22] MEDS ORDERED: VANCOMYCIN INJECTION 0.1 MG in NS (IVPB) 250 ML IV SCH (10:30)
[2018-07-22] MEDS ORDERED: MEROPENEM 500 MG in WATER (STERILE) FOR INJECTION 10 ML IV SCH (10:30)
[2018-07-22] MEDS ORDERED: NS IV ONE (10:30)
[2018-07-22] MEDS ORDERED: VANCOMYCIN 2000 MG/NS 500 ML IVPB IV NR ×2 (10:38)
[2018-07-22 10:45] LABS: CLARITY,URINE CLEAR; GLUCOSE, URINE (UA) NEGATIVE (NEGATIVE); KETONES,URINE NEGATIVE (NEGATIVE); LEUKOCYTE ESTERASE ,URINE 1+ (NEGATIVE); NITRITE,URINE NEGATIVE (NEGATIVE); PH,URINE 5 (5-9); PROTEIN,URINE 3+ (NEGATIVE); UROBILINOGEN,URINE 1 MG/DL (NORMAL)
[2018-07-22 10:46] LABS: COLOR,URINE YELLOW
[2018-07-22 10:47] LABS: AMORPHOUS SEDIMENT,UR RARE AMOR URATES /LPF; BACTERIA,URINE TRACE /HPF; BILIRUBIN,URINE 1+ (NEGATIVE); RBC,URINE RARE /HPF; WBC,URINE 0-2 /HPF
[2018-07-22] MEDS ORDERED: NOREPINEPHRINE 4 MG in NS (IVPB) 250 ML IV SCH (11:15)
[2018-07-22] MEDS ORDERED: MIDAZOLAM 5 MG/5 ML (VERSED) VIAL INJ ONE (11:40)
[2018-07-22] MEDS ORDERED: SUCCINYLCHOLINE INJ 100 MG/5 ML SYR INJ ONE (11:40)
[2018-07-22] MEDS ORDERED: ETOMIDATE IV SOLN 20 MG/10 ML VIAL IV ONE (11:40)
--- NOTE | 2018-07-22 12:00 | NUR ---
30ML/KG FLUID BOLUS GIVEN IN ER
--- NOTE | 2018-07-22 12:08 | NUR ---
PTD VANCOMYCIN LABS: SCR 3.2, MRSA SWAB PENDING PLAN: VANCOMYCIN 2,000 MG IV X 1 DOSE TODAY, THEN START VANCOMYCIN 1,250MG IV DAILY X 3 DAYS,NO LEVEL ORDERED DUE TO ONLY ORDERED X 3 DAYS, IF PLAN TO CONTINUE LONGER CHECK A TROUGH LEVEL. Addendum: 07/22/18 at 1212 by GIA JACKSON [facility] SCR 3.7
--- NOTE | 2018-07-22 13:42 | NUR ---
UNABLE TO SPEAK WITH THE PATIENT ABOUT MEDICATIONS AT THIS TIME. I CALLED AND LEFT A MESSAGE WITH HIS BUT HAVE NOT HEARD BACK FROM HER YET. I REVIEWED THE MEDICATIONS THAT I COULD VERIFY WITH THE EXT MED HX. I ALSO LEFT THE OTC VITAMIN D ON THE MED REC FROM HIS PREVIOUS VISIT.
--- NOTE | 2018-07-22 13:46 | History & Physical-Hospitalist ---
History of Present Illness HPI/Chief Complaint The patient is a 62-year-old white male who was brought to the emergency room this morning in an unresponsive state. Date Seen 07/22/18 Time Seen by a Provider: 13:42 Attending Physician David Lake MD PCP Elijah Nuno MD Referring Physician Date of Admission Jul 22, 2018 at 10:17 Home Medications & Allergies Home Medications Reviewed patient Home Medication Reconciliation performed by pharmacy medication reconciliations office equipment technician and/or nursing. Patients Allergies have been reviewed. Allergies Allergies Coded Allergies No Known Drug Allergies (Unverified12/09/14) Past Mouwvut-Pssgrv-Bpwvnh Hx Patient Social History Alcohol Use: Denies Use Recreational Drug Use: No Smoking Status: Unknown if Ever Smoked Former Smoker, Quit: Jan 26, 2015 Type Used: Cigarettes, Smokeless Tobacco Recent Foreign Travel: No Contact w/other who traveled: No Recent Hopitalizations: No Recent Infectious Disease Expo: No Immunizations Up To Date Tetanus Booster (TDap): Unknown Pediatric: No Seasonal Allergies Seasonal Allergies: No Past Medical History Surgeries: Testicular, Vasectomy Currently Using CPAP: No Currently Using BIPAP: No Cardiac: Hypertension Neurological: Neuropathy Reproductive: Yes (ARTIFICAL TESTICLE, ) Sexually Transmitted Disease: No HIV/AIDS: No Genitourinary: Renal Failure Musculoskeletal: Arthritis, Chronic Back Pain Endocrine: Diabetes, Insulin dep Did You Recieve Any Treatments: No History of Blood Disorders: No Adverse Reaction to Blood Barrera: No Family History Diabetes mellitus 19 MOTHER G8 SISTER Hypertension 19 FATHER 19 MOTHER Myocardial infarction 19 FATHER (STROKES) Heart Disease, CVA, Diabetes Physical Exam Physical Exam Vital Signs Vital Signs - First Documented 07/22/18 07/22/18 07/22/18 08:17 10:32 11:45 Temp 99.7 Pulse 110 Resp 18 B/P (MAP) 80/59 (66) Pulse Ox 89 O2 Delivery Nasal Cannula O2 Flow Rate 60.00 FiO2 60 Capillary Refill : Less Than 3 Seconds Height, Weight, BMI Height: 6'1.00" Weight: 240lbs. 0.5oz. 108.563772wn; 37.0 BMI Method:Stated General Appearance: Other Eyes: Bilateral Eye PERRL Respiratory: Chest Non Tender, Lungs Clear, Normal Breath Sounds, No Accessory Muscle Use, No Respiratory Distress Cardiovascular: Regular Rate, Rhythm, No Edema, No Gallop, No JVD, No Murmur, Normal Peripheral Pulses Extremity: Normal Capillary Refill Results Results/Procedures Labs Laboratory Tests 07/22/18 08:33 Patient resulted labs reviewed. DAVID LAKE MD Jul 22, 2018 13:46
[2018-07-22] MEDS: PROPOFOL DRIP (ICU) 100 ML IV SCH ×4 (13:50→22:32)
[2018-07-22 14:03] LABS: SALICYLATE < 5.0 MG/DL (5.0-20.0)
[2018-07-22 14:04] LABS: ACETAMINOPHEN < 10 UG/ML (10-30)
[2018-07-22 15:17] LABS: ABG BASE EXCESS -4.5 MMOL/L (-2.5-2.5); ABG OXYGEN SATURATION 99 % (94-100); ABG PCO2 42 MMHG (35-45); ABG PO2 136 MMHG (79-93); ABG TCO2 22.1 MMOL/L (21.0-31.0)
[2018-07-22 15:19] LABS: ALLENS TEST YES-POS; INSPIRED O2 60%; PATIENT TEMP 97.7; VENTILATOR YES
[2018-07-22] MEDS: fentaNYL INJECTION 1,250 MCG in NS (IVPB) 250 ML IV SCH (15:19)
[2018-07-22 15:21] LABS: ABG PH 7.31 (7.37-7.43)
--- NOTE | 2018-07-22 15:25 | Pulmonary Consultation ---
History of Present Illness History of Present Illness Date of Consultation 07/22/18 15:20 Time Seen by Provider: 16:21 Date of Admission History of Present Illness 62yo with hx of chronic pain, and COPD and was recently admitted to [facility] and required ventilator support presented to ED via EMS secondary to MS changes. BS was 270 per EMS and SBP was in the 60's . While in the ED pt was intubated secondary to respiratory failure and lethargy. A central line was also placed. PT is currently intubated and sedated no family at bedside. All information obtained from ED. I am consulted for pulmonary/CC management. Allergies and Home Medications Allergies Coded Allergies: No Known Drug Allergies (Unverified , 12/09/14) Home Medications Albuterol Sulfate 18 Gm Hfa.aer.ad, 1-2 PUFF IH QID, (Reported) Amitriptyline HCl 50 Mg Tablet, 50 MG PO HS, (Reported) Amlodipine Besylate 5 Mg Tablet, 5 MG PO DAILY, (Reported) Budesonide/Formoterol Fumarate 10.2 Gm Hfa.aer.ad, 2 PUFF IH BID, (Reported) Cholecalciferol (Vitamin D3) 1,000 Unit Capsule, 1,000 UNIT PO DAILY, (Reported) Cyclobenzaprine HCl 10 Mg Tablet, 10 MG PO HS, (Reported) Diazepam 2 Mg Tablet, 2 MG PO Q8H PRN for ANXIETY, (Reported) Diclofenac Sodium 75 Mg Tablet.dr, 75 MG PO BID, (Reported) Fluticasone Propionate 16 Gm [place].susp, 2 SPRAYS NSEACH DAILY, (Reported) Gabapentin 600 Mg Tablet, 600 MG PO TID, (Reported) Glimepiride 4 Mg Tablet, 4 MG PO BID, (Reported) Insulin Aspart 100 Unit/1 Ml Susp, 30 UNITS SQ AC, (Reported) Insulin Determir 1,000 Units/10 Ml Soln, 30 UNITS SQ BID, (Reported) Lisinopril 20 Mg Tablet, 20 MG PO BID, (Reported) Meclizine HCl 25 Mg Tablet, 12.5 MG PO QID, (Reported) TAKES 1/2 OF A (25 MG) TABLET Morphine Sulfate 60 Mg Tablet.er, 60 MG PO Q12H, (Reported) Oxycodone HCl/Acetaminophen 1 Each Tablet, 1 TAB PO TID PRN for PAIN-MODERATE, ( Reported) Solifenacin Succinate 5 Mg Tablet, 5 MG PO DAILY, (Reported) Past Efteylt-Mqwypc-Zzufrx Hx Patient Social History Alcohol Use: Denies Use Recreational Drug Use: No Smoking Status: Unknown if Ever Smoked Type Used: Cigarettes, Smokeless Tobacco Former Smoker, Quit: Jan 26, 2015 Recent Foreign Travel: No Contact w/Someone Who Travel: No Recent Infectious Disease Expo: No Recent Hopitalizations: No Immunizations Up To Date Tetanus Booster (TDap): Unknown PED Vaccines UTD: No Seasonal Allergies Seasonal Allergies: No Past Medical History Surgeries: Yes (L SHOULDER, R ANKLE, PENILE IMPLANT, ) Testicular, Vasectomy Respiratory: Yes (oxygen at HS, prn during the day) COPD Currently Using CPAP: No Currently Using BIPAP: No Cardiac: Yes Hypertension Neurological: Yes Neuropathy Reproductive Disorders: Yes (ARTIFICAL TESTICLE, ) Sexually Transmitted Disease: No HIV/AIDS: No Genitourinary: Yes Renal Failure Gastrointestinal: No Musculoskeletal: Yes Arthritis, Chronic Back Pain Endocrine: Yes Diabetes, Insulin dep HEENT: No Cancer: No Did You Recieve Any Treatments: No Psychosocial: No Integumentary: No Blood Disorders: No Adverse Reaction/Blood Tranf: No Family Medical History Diabetes mellitus 19 MOTHER G8 SISTER Hypertension 19 FATHER 19 MOTHER Myocardial infarction 19 FATHER (STROKES) Heart Disease, CVA, Diabetes Review of Systems Time Seen by Provider: 16:21 Sepsis Event Evaluation Height, Weight, BMI Height: 6'2.00" Weight: 282lbs. 3.2oz. 128.278088tm; 36.2 BMI Method:Stated Exam Exam Vital Signs Date Time Temp Pulse Resp B/P (MAP) Pulse Ox O2 Delivery O2 Flow Rate FiO2 07/22/18 14:49 90 22 100 60 07/22/18 14:00 95 21 115/51 (72) 100 Mechanical Ventilator 60.00 07/22/18 13:50 116/56 07/22/18 13:10 101 07/22/18 13:00 99 21 97/50 (66) 100 Mechanical Ventilator 60.00 07/22/18 12:00 104 22 97/49 (65) 100 Mechanical Ventilator 60.00 07/22/18 12:00 104 22 105/47 (66) 100 Mechanical Ventilator 60.00 07/22/18 11:55 104 07/22/18 11:50 103 37 97/49 (65) 91 Mechanical Ventilator 60.00 07/22/18 11:45 97.4 104 20 97/49 (65) 97 Mechanical Ventilator 60.00 07/22/18 11:40 Mechanical Ventilator 60 07/22/18 10:49 106 18 125/57 (79) 98 Mechanical Ventilator 07/22/18 10:32 108 22 99 60 07/22/18 09:50 128/79 07/22/18 08:17 99.7 110 18 80/59 (66) 89 Nasal Cannula Height & Weight Height: 6'2.00" Weight: 282lbs. 3.2oz. 128.200238bp; 36.2 BMI Method:Stated General Appearance: Moderate Distress, Obese, Other (pt is sedated on vent) HEENT: PERRL/EOMI, Other (ET TUbe in place ) Respiratory: Chest Non Tender, No Accessory Muscle Use, No Respiratory Distress , Decreased Breath Sounds Cardiovascular: Regular Rate, Rhythm, No Edema, No Gallop, No JVD, No Murmur, Normal Peripheral Pulses Capillary Refill: Less Than 3 Seconds Gastrointestinal: abnormal bowel sounds, distended Extremity: Normal Capillary Refill Skin: Normal Color, Warm/Dry Lymphatic: No Adenopathy Results Lab Laboratory Tests 07/22/18 08:33 Assessment/Plan Assessment/Plan Acute respiratory failure -Continue ventilator care and protocols -Decrease Fi02 aggressively -Start SVNs Duoneb Q4 Septic shock r/o intrabdominal sepsis -Change Cefepime to Zosyn to cover (anaerobes) possible abdominal sepsis and possible aspiration -Busby cultures pending -IVF - severe sepsis protocol -Levophed gtt -Add solucortef -echocardiogram stat -- results - normal EF and no pericardial effusion - per electrical controls technician Acute MS changes -- possibly from home narcotics/benzos -Check UDS -Check CT of head stat N/V yesterday prior to pt becoming unresponsive -Check stat CT of abdomen and pelvis -Check amylase lipase Hyperkalemia -Pt received Kayexalate and calcium gluconate in ED -Repeat stat labs -Last labs were from 0800 -IF repeat labs show elevated K+ will give: insulin, bicarb, repeat Kayexalate. LBBB - per EKG -repeat troponin -repeat EKG -Echocardiogram - normal EF and no pericardial effusion Acute on chronic renal failure with hyperkalemia -IVF -monitor close Metabolic lactic acidosis - secondary to sepsis r/o abdominal sepsis MARCI HENDERSON DO Jul 22, 2018 15:25
[2018-07-22] MEDS ORDERED: PIPERACILLIN/TAZO 4.5 GM/NS 100 ML IV NR ×2 (16:30)
[2018-07-22 16:31] LABS: ALANINE AMINOTRANSFERASE 42 U/L (0-55); ALBUMIN 3.5 GM/DL (3.2-4.5); ALKALINE PHOSPHATASE 57 U/L (40-136); AMYLASE 30 U/L (25-125); BILIRUBIN,TOTAL 0.8 MG/DL (0.1-1.0); BUN/CREATININE RATIO 20; CALCIUM 8.1 MG/DL (8.5-10.1); CARBON DIOXIDE 20 MMOL/L (21-32); CHLORIDE 112 MMOL/L (98-107); CREATININE SERUM 2.97 MG/DL (0.60-1.30); GFR ESTIMATED 22; GLUCOSE 189 MG/DL (70-105); LIPASE 8 U/L (8-78); MAGNESIUM 1.8 MG/DL (1.8-2.4); PHOSPHORUS 3.9 MG/DL (2.3-4.7); POTASSIUM 4.8 MMOL/L (3.6-5.0); SODIUM 144 MMOL/L (135-145); TOTAL PROTEIN 5.9 GM/DL (6.4-8.2)
[2018-07-22] MEDS ORDERED: SODIUM BICARB 8.4% 50 MEQ/50 ML (ABBOTT) SYR IV NR (16:45)
[2018-07-22 16:52] LABS: AMPHETAMINE SCREEN, URINE NEGATIVE (NEGATIVE); BARBITURATE SCREEN URINE NEGATIVE (NEGATIVE); BENZODIAZEPINES SCREEN URINE POSITIVE (NEGATIVE); CANNABINOID SCREEN, URINE NEGATIVE (NEGATIVE); COCAINE SCREEN URINE NEGATIVE (NEGATIVE); METHADONE STAT NEGATIVE (NEGATIVE); METHAMPHETAMINE SCREEN URINE S NEGATIVE (NEGATIVE); OPIATE SCREEN URINE POSITIVE (NEGATIVE); OXYCODONE STAT POSITIVE (NEGATIVE); PROPOXYPHENE STAT NEGATIVE (NEGATIVE); TRICYCLIC ANTIDEPRESSANTS SCRE POSITIVE (NEGATIVE)
--- NOTE | 2018-07-22 16:57 | Diagnostic Imaging Report ---
PROCEDURE: CT head without contrast. TECHNIQUE: Multiple contiguous axial images were obtained through the brain without the use of intravenous contrast. Auto Exposure Controls were utilized during the CT exam to meet ALARA standards for radiation dose reduction. INDICATION: Altered mental status The ventricles are normal in size, shape and position. There are no masses or hemorrhages. There are no extra-axial fluid collections. Impression: Negative CT head Dictated by: Dictated on workstation # [id number]
--- NOTE | 2018-07-22 17:08 | Diagnostic Imaging Report ---
PROCEDURE: CT chest, abdomen, and pelvis without contrast. TECHNIQUE: Multiple contiguous axial images were obtained through the chest, abdomen, and pelvis without the use of intravenous contrast. Auto Exposure Controls were utilized during the CT exam to meet ALARA standards for radiation dose reduction. INDICATION: Septic shock. COMPARISON: Comparison made with prior examination 07/28/2014. FINDINGS: There are patchy bibasilar consolidations and trace bilateral pleural effusions. There is no pneumothorax. ET and NG tubes are in place. There is cardiomegaly. There is no pathologically enlarged adenopathy in the chest. There is moderate thoracic spondylosis. Thyroid is normal in appearance. There is some fatty filtration of the liver. Gallbladder is unremarkable. There is no biliary duct dilatation. Spleen is normal. The pancreas is unremarkable. There is a right adrenal mass however it is markedly decreased in size when compared to prior examination. The left adrenal gland is normal. Kidneys are normal in appearance. Aorta is nonaneurysmal. Bowel gas pattern is nonspecific. There is no free air. There is some trace free pelvic fluid. There is Albrecht catheter in the bladder. There are degenerative changes in the spine. IMPRESSION: 1. Bibasilar consolidations and trace bilateral pleural effusions. 2. Cardiomegaly. 3. Fatty infiltration of the liver. 4. Right adrenal mass which has decreased significantly in size since prior examination. 5. Trace amount of free pelvic fluid. 6. Thoracolumbar spondylosis. Dictated by: Dictated on workstation # [id number]
[2018-07-22] MEDS: HYDROCORTISONE 100 MG/2 ML (Solu-CORTEF) VIAL IV SCH ×2 (17:22→23:15)
[2018-07-22] MEDS: NOREPINEPHRINE 4 MG in NS (IVPB) 250 ML IV SCH ×3 (17:29→19:28)
[2018-07-22] MEDS ORDERED: inSUlin ASPART (NovoLOG) 1 UNIT/0.01 ML (CHARGE PER UNIT) SC SCH (18:00)
[2018-07-22] MEDS: RT-ALBUTEROL/IPRATROPIUM 3 ML (DUONEB) VIAL INH SCH ×2 (18:36→22:54)
[2018-07-22 20:08] LABS: BILIRUBIN,URINE NEGATIVE (NEGATIVE); CLARITY,URINE SLIGHTLY CLOUDY; COLOR,URINE YELLOW; GLUCOSE, URINE (UA) NEGATIVE (NEGATIVE); KETONES,URINE NEGATIVE (NEGATIVE); LEUKOCYTE ESTERASE ,URINE 2+ (NEGATIVE); NITRITE,URINE NEGATIVE (NEGATIVE); PH,URINE 5 (5-9); PROTEIN,URINE 2+ (NEGATIVE); UROBILINOGEN,URINE NORMAL (NORMAL)
[2018-07-22 20:25] LABS: BACTERIA,URINE MODERATE /HPF; SQUAMOUS EPITHELIAL CELL,UR 0-2 /HPF; WBC,URINE 25-50 /HPF
[2018-07-22 20:26] LABS: AMORPHOUS SEDIMENT,UR FEW AMOR URATES /LPF
[2018-07-22] MEDS ORDERED: CEFEPIME INJECTION 1,000 MG in WATER (STERILE) FOR INJECTION 10 ML IV SCH (21:00)
[2018-07-22] MEDS: PIPERACILLIN/TAZOBACTAM (BULK) 4.5 GM in NS (IVPB) 100 ML IV SCH (22:11)
[2018-07-22] MEDS: inSUlin ASPART (NovoLOG) 1 UNIT/0.01 ML (CHARGE PER UNIT) SC SCH (23:15)
[2018-07-23] VITALS (35 sets, daily range): BP systolic 101–161; BP diastolic 50–87
[2018-07-23] MEDS: PROPOFOL DRIP (ICU) 100 ML IV SCH ×7 (02:16→23:42)
[2018-07-23] MEDS: RT-ALBUTEROL/IPRATROPIUM 3 ML (DUONEB) VIAL INH SCH ×6 (02:27→22:18)
[2018-07-23 03:33] LABS: ABG BASE EXCESS -3.4 MMOL/L (-2.5-2.5); ABG OXYGEN SATURATION 95 % (94-100); ABG PCO2 50 MMHG (35-45); ABG PO2 75 MMHG (79-93); ABG TCO2 23.8 MMOL/L (21.0-31.0); BASOPHILS % (AUTO) 0 % (0-10); EOSINOPHILS % (AUTO) 0 % (0-10); HEMATOCRIT 36 % (40-54); HEMOGLOBIN 11.1 G/DL (13.3-17.7); LYMPHOCYTES # (AUTO) 0.9 X 10^3 (1.0-4.0); LYMPHOCYTES % (AUTO) 13 % (12-44); MEAN CORPUSCULAR HEMOGLOBIN 29 PG (25-34); MEAN CORPUSCULAR HGB CONC 31 G/DL (32-36); MEAN CORPUSCULAR VOLUME 94 FL (80-99); MEAN PLATELET VOLUME 11.1 FL (7.4-10.4); MONOCYTES # (AUTO) 1.1 X 10^3 (0.0-1.0); MONOCYTES % (AUTO) 16 % (0-12); NEUTROPHILS % (AUTO) 71 % (42-75); PLATELET COUNT 210 10^3/uL (130-400); RED CELL DISTRIBUTION WIDTH 15.3 % (10.0-14.5)
[2018-07-23 03:34] LABS: ALLENS TEST YES-POS; INSPIRED O2 35; PATIENT TEMP 99.4; VENTILATOR YES
[2018-07-23 03:35] LABS: ABG PH 7.27 (7.37-7.43)
[2018-07-23] MEDS: NS IV 1000 ML 1,000 ML IV SCH ×4 (03:48→23:43)
[2018-07-23] MEDS: NOREPINEPHRINE 4 MG in NS (IVPB) 250 ML IV SCH ×4 (03:58→22:47)
[2018-07-23 04:28] LABS: ALBUMIN 3.3 GM/DL (3.2-4.5); BILIRUBIN,TOTAL 0.5 MG/DL (0.1-1.0); CALCIUM 8.3 MG/DL (8.5-10.1); CREATININE SERUM 2.32 MG/DL (0.60-1.30); PHOSPHORUS 2.7 MG/DL (2.3-4.7); POTASSIUM 4.8 MMOL/L (3.6-5.0)
[2018-07-23] MEDS: MAGNESIUM 1 GM/100 ML IVPB 100 ML IV SCH (05:13)
[2018-07-23] MEDS: KCL 20 MEQ TAB (K-DUR) PO SCH (05:13)
[2018-07-23] MEDS: POTASSIUM CL 10MEQ/50ML IVPB 50 ML IV SCH (05:13)
[2018-07-23] MEDS: inSUlin ASPART (NovoLOG) 1 UNIT/0.01 ML (CHARGE PER UNIT) SC SCH ×4 (05:16→23:43)
[2018-07-23] MEDS: PIPERACILLIN/TAZOBACTAM (BULK) 4.5 GM in NS (IVPB) 100 ML IV SCH ×3 (05:17→22:47)
--- NOTE | 2018-07-23 05:18 | Pulmonary Progress Note ---
Subjective Time Seen by a Provider: 05:35 Subjective/Events-last exam Pt is sedated on vent. Sepsis Event Evaluation Height, Weight, BMI Height: 6'2.00" Weight: 282lbs. 3.2oz. 128.087386at; 36.2 BMI Method:Stated Focused Exam Lactate Level 07/22/18 10:47: Lactic Acid Level 3.55*H 07/22/18 13:30: Lactic Acid Level 2.46*H 07/22/18 16:00: Lactic Acid Level 1.77 Time of Focused Exam: 10:15 Exam Exam Vital Signs Date Time Temp Pulse Resp B/P (MAP) Pulse Ox O2 Delivery O2 Flow Rate FiO2 07/23/18 05:00 113 22 105/55 (72) 94 Mechanical Ventilator 35.00 07/23/18 04:37 116 22 94 35 07/23/18 04:00 117 22 106/54 (71) 93 Mechanical Ventilator 35.00 07/23/18 03:20 99.4 117 22 93 Mechanical Ventilator 35.00 07/23/18 03:20 93 Mechanical Ventilator 35 07/23/18 03:00 117 21 108/50 (69) 92 Mechanical Ventilator 35.00 07/23/18 02:27 112 22 93 35 07/23/18 02:16 118/56 Mechanical Ventilator 35.00 07/23/18 02:00 112 22 112/57 (75) 93 Mechanical Ventilator 35.00 07/23/18 01:00 112 118/59 (78) 93 Mechanical Ventilator 35.00 07/23/18 01:00 112 07/23/18 00:43 112 22 94 35 07/23/18 00:00 111 22 119/61 (80) 94 Mechanical Ventilator 35.00 07/22/18 23:05 99.4 Mechanical Ventilator 35.00 07/22/18 23:05 95 Mechanical Ventilator 35 07/22/18 23:00 109 21 99/43 (61) 94 Mechanical Ventilator 35.00 07/22/18 22:54 109 22 94 35 07/22/18 22:32 102/44 Mechanical Ventilator 35.00 07/22/18 22:00 111 21 95/41 (59) 94 Mechanical Ventilator 35.00 07/22/18 21:00 110 21 106/46 (66) 95 Mechanical Ventilator 35.00 07/22/18 20:41 108 22 95 35 07/22/18 20:00 101 21 113/45 (67) 97 Mechanical Ventilator 35.00 07/22/18 19:15 96 Mechanical Ventilator 35 07/22/18 19:00 98.6 102 22 97/38 (57) 96 Mechanical Ventilator 35.00 07/22/18 19:00 101 07/22/18 18:36 96 22 97 35 07/22/18 18:30 103/46 07/22/18 18:00 99 21 96 Mechanical Ventilator 30.00 07/22/18 17:00 101 21 101/41 (61) 95 Mechanical Ventilator 30.00 07/22/18 16:49 102 22 94 35 07/22/18 16:00 93 21 111/59 (76) 98 Mechanical Ventilator 30.00 07/22/18 16:00 Mechanical Ventilator 60 07/22/18 15:00 90 21 120/56 (77) 100 Mechanical Ventilator 60.00 07/22/18 14:49 90 22 100 60 07/22/18 14:00 95 21 115/51 (72) 100 Mechanical Ventilator 60.00 07/22/18 13:50 116/56 07/22/18 13:10 101 07/22/18 13:00 99 21 97/50 (66) 100 Mechanical Ventilator 60.00 07/22/18 12:00 104 22 97/49 (65) 100 Mechanical Ventilator 60.00 07/22/18 12:00 104 22 105/47 (66) 100 Mechanical Ventilator 60.00 07/22/18 11:55 104 07/22/18 11:50 103 37 97/49 (65) 91 Mechanical Ventilator 60.00 07/22/18 11:45 97.4 104 20 97/49 (65) 97 Mechanical Ventilator 60.00 07/22/18 11:40 Mechanical Ventilator 60 07/22/18 10:49 106 18 125/57 (79) 98 Mechanical Ventilator 07/22/18 10:32 108 22 99 60 07/22/18 09:50 128/79 07/22/18 08:17 99.7 110 18 80/59 (66) 89 Nasal Cannula I & O 07/23/18 07:00 Intake Total 5544 ml Output Total 2740 ml Balance 2804 ml Height & Weight Height: 6'2.00" Weight: 282lbs. 3.2oz. 128.725708hm; 36.2 BMI Method:Stated General Appearance: Chronically ill, Obese, Other (sedated on vent ) HEENT: TMs Normal, Normal ENT Inspection, Pharynx Normal, Moist Mucous Membranes (mildly dry with ibarra thick mucus the back of the throat); No Tonsillar Exudate, No Tonsillar Enlargement Neck: Full Range of Motion, Normal Inspection, Non Tender, Supple Respiratory: Normal Breath Sounds, No Accessory Muscle Use Cardiovascular: Regular Rate, Rhythm, No Edema, No Murmur, Normal Peripheral Pulses Capillary Refill: Less Than 3 Seconds Peripheral Pulses: 2+ Radial Pulses (R), 2+ Radial Pulses (L) Gastrointestinal: abnormal bowel sounds, distended Extremity: Normal Capillary Refill, Normal Inspection, Non Tender Neurologic/Psychiatric: Other (GCS 6 [id number]) Skin: Normal Color, Warm/Dry Lymphatic: No Adenopathy Results Lab Laboratory Tests 07/22/18 08:33 07/22/18 16:00 07/23/18 03:07 Assessment/Plan Assessment/Plan Acute respiratory failure-- probable aspiration pneumonia -Influ is neg -Continue ventilator care and protocols -ABG - reviewed -- secondary to decompensated chronic respiratory acidosis and metabolic acidosis. continue to monitor for now. -Start SVNs Duoneb Q4 Septic shock - Busby cultures pending -Change Cefepime to Zosyn to cover (anaerobes) possible abdominal sepsis and possible aspiration -Busby cultures pending -CT of abd/pelvis is neg -IVF - severe sepsis protocol -Levophed gtt -- is now off -Add solucortef -echocardiogram stat -- results - normal EF and no pericardial effusion - per fiber optic technician Sinus tach -Monitor -IVF Acute MS changes -- possibly from home narcotics/benzos -CT of head stat N/V yesterday prior to pt becoming unresponsive -Check stat CT of abdomen and pelvis -Check amylase lipase Hyperkalemia- resolved -Pt received Kayexalate and calcium gluconate in ED -Repeat stat labs LBBB - per EKG -Consult cardiology - troponins - neg x 2 -Echocardiogram - normal EF and no pericardial effusion Elevated AST -Abd CT scan was negative -Check RUQ US Acute on chronic renal failure with hyperkalemia -IVF -monitor close Metabolic lactic acidosis - secondary to sepsis r/o abdominal sepsis DM -SSI -Start Levemir -Check A1c MARCI LOPEZ DO Jul 23, 2018 05:18
[2018-07-23] MEDS ORDERED: ENOXAPARIN 40 MG/0.4 ML (LOVENOX) SYR SC SCH (05:45)
[2018-07-23] MEDS: DEXMEDETOMIDINE INJECTION 200 MCG in NS (IVPB) 50 ML IV SCH ×4 (06:49→18:47)
--- NOTE | 2018-07-23 07:12 | NUR ---
Notified Dr Jensen of new consult at this time.
[2018-07-23] MEDS: PANTOPRAZOLE 40 MG (PROTONIX) VIAL IV SCH (08:13)
[2018-07-23] MEDS: ENOXAPARIN 40 MG/0.4 ML (LOVENOX) SYR SC SCH (08:13)
[2018-07-23] MEDS: HYDROCORTISONE 100 MG/2 ML (Solu-CORTEF) VIAL IV SCH ×3 (08:13→23:43)
--- NOTE | 2018-07-23 08:39 | Consultation-Cardiology ---
HPI-Cardiology Cardiology Consultation: Date of Consultation 07/23/18 Time Seen by a Provider: 08:45 Date of Admission 07-22-18 Attending Physician David Tucker MD Admitting Physician Elijah Nuno MD Consulting Physician Luis Jensen MD HPI: Chief Complaint: LBBB Respiratory failure Mr. Campbell is a 62 year old male admitted to ICU 11 from the ED. He is currently intubated and sedated. There is no family at the bedside. Information has been obtained via chart review and discuss with nursing. He was brought to the ED from [facility] unresponsive. According to ED note family reported he was nauseated and had several episodes of emesis at home. EMS reports he was found to have a systolic BP in the 60's. He has a known h/o chronic narcotic use d/t chronic back/joint pain. In the ED he remained obtunded. He was found to be in renal failure with hyperkalemia. He was then intubated. He has a h/o DM, although per EMS his glucose was in the 200's. Review of Systems-Cardiology Review of Systems Other comments Unable to obtain - intubated and sedated OUG-Bakhfv-Jaojyo Hx Patient Social History Alcohol Use: Denies Use Recreational Drug Use: No Smoking Status: Former Smoker Former smoker/When Quit: Sep 29, 2009 Type Used: Cigarettes, Smokeless Tobacco Recent Foreign Travel: No Recent Infectious Disease Expo: No Hospitalization with Isolation: Denies Immunizations Up To Date Tetanus Booster (TDap): Unknown Past Medical History PMH As described under Assessment. Family Medical History Family History: Diabetes mellitus 19 MOTHER G8 SISTER Hypertension 19 FATHER 19 MOTHER Myocardial infarction 19 FATHER (STROKES) Allergies and Home Medications Allergies Coded Allergies: No Known Drug Allergies (Unverified , 12/09/14) Home Medications Albuterol Sulfate 18 Gm Hfa.aer.ad, 1-2 PUFF IH QID, (Reported) Amitriptyline HCl 50 Mg Tablet, 50 MG PO HS, (Reported) Amlodipine Besylate 5 Mg Tablet, 5 MG PO DAILY, (Reported) Budesonide/Formoterol Fumarate 10.2 Gm Hfa.aer.ad, 2 PUFF IH BID, (Reported) Cholecalciferol (Vitamin D3) 1,000 Unit Capsule, 1,000 UNIT PO DAILY, (Reported) Cyclobenzaprine HCl 10 Mg Tablet, 10 MG PO HS, (Reported) Diazepam 2 Mg Tablet, 2 MG PO Q8H PRN for ANXIETY, (Reported) Diclofenac Sodium 75 Mg Tablet.dr, 75 MG PO BID, (Reported) Fluticasone Propionate 16 Gm [place].susp, 2 SPRAYS NSEACH DAILY, (Reported) Gabapentin 600 Mg Tablet, 600 MG PO TID, (Reported) Glimepiride 4 Mg Tablet, 4 MG PO BID, (Reported) Insulin Aspart 100 Unit/1 Ml Susp, 30 UNITS SQ AC, (Reported) Insulin Determir 1,000 Units/10 Ml Soln, 30 UNITS SQ BID, (Reported) Lisinopril 20 Mg Tablet, 20 MG PO BID, (Reported) Meclizine HCl 25 Mg Tablet, 12.5 MG PO QID, (Reported) TAKES 1/2 OF A (25 MG) TABLET Morphine Sulfate 60 Mg Tablet.er, 60 MG PO Q12H, (Reported) Oxycodone HCl/Acetaminophen 1 Each Tablet, 1 TAB PO TID PRN for PAIN-MODERATE, ( Reported) Solifenacin Succinate 5 Mg Tablet, 5 MG PO DAILY, (Reported) Patient Home Medication List Home Medication List Reviewed: Yes Physical Exam-Cardiology Physical Exam Vital Signs/I&O 07/23/18 07/23/18 07/23/18 07/23/18 22:00 22:18 23:00 23:42 Pulse 84 85 83 Resp 21 22 21 B/P (MAP) 161/82 (108) 160/85 (110) 155/81 Pulse Ox 95 93 93 O2 Delivery Mechanical Ventilator Mechanical Ventilator O2 Flow Rate 35.00 35.00 FiO2 35 07/24/18 07/24/18 07/24/18 07/24/18 00:00 00:00 00:00 00:43 Temp 97.1 Pulse 81 79 Resp 22 22 B/P (MAP) 158/83 (108) Pulse Ox 94 94 94 O2 Delivery Mechanical Ventilator Mechanical Ventilator O2 Flow Rate 35.00 FiO2 35 35 07/24/18 07/24/18 07/24/18 07/24/18 01:00 01:00 02:00 03:00 Pulse 79 79 76 77 Resp 21 22 21 B/P (MAP) 162/83 (109) 166/81 (109) 164/82 (109) Pulse Ox 94 94 94 O2 Delivery Mechanical Ventilator Mechanical Ventilator Mechanical Ventilator O2 Flow Rate 35.00 35.00 35.00 07/24/18 07/24/18 07/24/18 07/24/18 03:16 03:33 04:00 04:00 Pulse 77 86 Resp B/P (MAP) 161/85 152/79 (103) Pulse Ox 94 92 90 O2 Delivery Mechanical Ventilator Mechanical Ventilator O2 Flow Rate 35.00 FiO2 35 35 07/24/18 07/24/18 07/24/18 07/24/18 04:00 05:00 06:00 07:00 Temp 97.6 Pulse 82 77 80 Resp 22 22 22 B/P (MAP) 164/86 (112) 171/86 (114) 161/82 (108) Pulse Ox 93 94 94 O2 Delivery Mechanical Ventilator Mechanical Ventilator Mechanical Ventilator O2 Flow Rate 35.00 35.00 35.00 07/24/18 07/24/18 07/24/18 07/24/18 07:10 07:35 08:00 08:00 Temp 97.8 Pulse 98 107 Resp 22 B/P (MAP) 168/80 (109) Pulse Ox 90 90 O2 Delivery Mechanical Ventilator Mechanical Ventilator O2 Flow Rate 35.00 FiO2 40 07/24/18 00:00 Intake Total 1422 ml Output Total 1025 ml Balance 397 ml Capillary Refill : Less Than 3 Seconds Constitutional: other (intubated and sedated) HEENT: No ulceration Neck: No carotid bruit; carotid pulses are 2 + bilaterally Respiratory: chest expansion is symmetric, chest is bilaterally symmetric, other (scattered wheezes; coarse lower lobes; fair air entry) Cardiovascular: regular rate-rhythm; No JVD; S1 and S2 Gastrointestinal: soft, round, audible bowel sounds Rectal: deferred Genital/Rectal: other (urinary catheter to DD with clear, yellow urine) Extremities: other (mild pedal edema bilat) Neurologic/Psychiatric: other (intubated and sedated; appears to move extremities) Skin: normal color, warm/dry; No rash, No ulcerations Data Review Labs Laboratory Tests 07/23/18 11:55: Glucometer 168H 07/23/18 17:57: Glucometer 242H 07/23/18 20:11: Glucometer 212H 07/23/18 23:34: Glucometer 238H 07/24/18 03:05: White Blood Count 6.8, Red Blood Count 3.80L, Hemoglobin 11.0L, Hematocrit 35L, Mean Corpuscular Volume 92, Mean Corpuscular Hemoglobin 29, Mean Corpuscular Hemoglobin Concent 31L, Red Cell Distribution Width 14.9H, Platelet Count 183, Mean Platelet Volume 10.8H, Neutrophils (%) (Auto) 74, Lymphocytes (%) (Auto) 11L, Monocytes (%) (Auto) 14H, Eosinophils (%) (Auto) 0, Basophils (%) (Auto) 0 , Neutrophils # (Auto) 5.0, Lymphocytes # (Auto) 0.8L, Monocytes # (Auto) 1.0, Eosinophils # (Auto) 0.0, Basophils # (Auto) 0.0, Sodium Level 145, Potassium Level 4.4, Chloride Level 117H, Carbon Dioxide Level 18L, Anion Gap 10, Blood Urea Nitrogen 35H, Creatinine 1.47H, Estimat Glomerular Filtration Rate 49, BUN/ Creatinine Ratio 24, Glucose Level 244H, Calcium Level 8.6, Corrected Calcium 9.2, Phosphorus Level 2.1L, Magnesium Level 2.1, Total Bilirubin 0.4, Aspartate Amino Transf (AST/SGOT) 40H, Alanine Aminotransferase (ALT/SGPT) 49, Alkaline Phosphatase 46, B-Type Natriuretic Peptide 55.1, Total Protein 6.0L, Albumin 3.3 07/24/18 03:39: Blood Gas Puncture Site RT RAD, Blood Gas Patient Temperature 97.6, Arterial Blood pH 7.34*L, Arterial Blood Partial Pressure CO2 41, Arterial Blood Partial Pressure O2 62L, Arterial Blood HCO3 22L, Arterial Blood Total CO2 23.0, Arterial Blood Oxygen Saturation 93L, Arterial Blood Base Excess -3.3L, Vipul Test YES-POS, Blood Gas Ventilator Setting YES, Blood Gas Inspired Oxygen 35% Microbiology 07/22/18 Blood Culture - Preliminary, Resulted No growth 07/22/18 MRSA Screen - Final, Complete MRSA not isolated 07/22/18 Urine Culture - Final, Complete NO GROWTH Radiology NAME: VASQUEZ CAMPBELL V MED REC#: [id number] PT STATUS: ADM IN : 1955 PHYSICIAN: STACEY KAUR MD ADMIT DATE: 07/22/18/ICU Signed Date of Exam: 07/22/18 CHEST 1 VIEW, AP/PA ONLY INDICATION: Septic shock and lethargy. Comparison is made with prior examination from 04/22/2017. FINDINGS: There is cardiomegaly. There is some bibasilar atelectasis and/or pneumonitis. ET and NG tubes are in satisfactory position. There is no pneumothorax. Mediastinum is unremarkable. IMPRESSION: Cardiomegaly and some bibasilar atelectasis and/or pneumonitis. There may be a small left pleural effusion. Dictated by: Dictated on workstation # [id number] Dict: 07/22/18 0951 Trans: 07/22/181054 Interpreted by: HAZEL MILLER MD Electronically signed by: HAZEL MILLER MD 07/22/185 NAME: VASQUEZ CAMPBELL [facility] REC#: [id number] PT STATUS: ADM IN : 1955 PHYSICIAN: MARCI LOPEZ DO ADMIT DATE: 07/22/18/ICU Signed Date of Exam: 07/22/18 CT HEAD WO PROCEDURE: CT head without contrast. TECHNIQUE: Multiple contiguous axial images were obtained through the brain without the use of intravenous contrast. Auto Exposure Controls were utilized during the CT exam to meet ALARA standards for radiation dose reduction. INDICATION: Altered mental status The ventricles are normal in size, shape and position. There are no masses or hemorrhages. There are no extra-axial fluid collections. Impression: Negative CT head Dictated by: Dictated on workstation # [id number] Dict: 07/22/18 1654 Trans: 07/22/181654 Interpreted by: MANJINDER PAULINO MD Electronically signed by: MANJINDER PAULINO MD 07/22/181654 NAME: VASQUEZ CAMPBELL [employer] REC#: [id number] PT STATUS: ADM IN : 1955 PHYSICIAN: MARCI LOPEZ DO ADMIT DATE: 07/22/18/ICU Signed Date of Exam: 07/22/18 CT CHEST/ABDOMEN/PELVIS WO PROCEDURE: CT chest, abdomen, and pelvis without contrast. TECHNIQUE: Multiple contiguous axial images were obtained through the chest, abdomen, and pelvis without the use of intravenous contrast. Auto Exposure Controls were utilized during the CT exam to meet ALARA standards for radiation dose reduction. INDICATION: Septic shock. COMPARISON: Comparison made with prior examination 07/28/2014. FINDINGS: There are patchy bibasilar consolidations and trace bilateral pleural effusions. There is no pneumothorax. ET and NG tubes are in place. There is cardiomegaly. There is no pathologically enlarged adenopathy in the chest. There is moderate thoracic spondylosis. Thyroid is normal in appearance. There is some fatty filtration of the liver. Gallbladder is unremarkable. There is no biliary duct dilatation. Spleen is normal. The pancreas is unremarkable. There is a right adrenal mass however it is markedly decreased in size when compared to prior examination. The left adrenal gland is normal. Kidneys are normal in appearance. Aorta is nonaneurysmal. Bowel gas pattern is nonspecific. There is no free air. There is some trace free pelvic fluid. There is Albrecht catheter in the bladder. There are degenerative changes in the spine. IMPRESSION: 1. Bibasilar consolidations and trace bilateral pleural effusions. 2. Cardiomegaly. 3. Fatty infiltration of the liver. 4. Right adrenal mass which has decreased significantly in size since prior examination. 5. Trace amount of free pelvic fluid. 6. Thoracolumbar spondylosis. Dictated by: Dictated on workstation # [id number] Dict: 07/22/18 1655 Trans: 07/23/18 08 Interpreted by: HAZEL MILLER MD Electronically signed by: HAZEL MILLER MD 07/23/18 0800 ECG Impression ECG Comment SR with LBBB A/P-Cardiology Assessment/Admission Diagnosis Acute renal failure - improving UTI with sepsis - management per medical/ICU services Altered mental status changes - likely secondary to sepsis and/or chronic narcotic use Hyperkalemia secondary to acute renal failure ST with LBBB DM COPD Chronic narcotic use d/t chronic back pain Clinical Quality Measures DVT/VTE Risk/Contraindication: Risk Factor Score Per Nursin RFS Level Per Nursing on Admit: 4+=Very High BRE JETER Jul 23, 2018 08:39
--- NOTE | 2018-07-23 09:05 | Diagnostic Imaging Report ---
INDICATION: Septic shock, ventilator, dyspnea. TECHNIQUE: Frontal view of the chest. COMPARISON: 07/22/2018 FINDINGS: Endotracheal tube is approximately 3.5 cm from the antoinette. An enteric tube projects over the stomach. Lung volumes are low. There are bibasilar opacities which likely represent atelectasis. The heart is stable in size. The right jugular line tip projects over the mid SVC. IMPRESSION: 1. Bibasilar opacities likely represent atelectasis given the low lung volumes. Tubes and line appear stable. Dictated by: Dictated on workstation # [id number]
[2018-07-23] MEDS: fentaNYL INJECTION 1,250 MCG in NS (IVPB) 250 ML IV SCH (09:24)
[2018-07-23] MEDS: VANCOMYCIN 1250 MG/NS 250 ML IVPB IV SCH ×2 (09:44)
--- NOTE | 2018-07-23 10:16 | Diagnostic Imaging Report ---
PROCEDURE: US abdomen complete. TECHNIQUE: Multiple real-time grayscale images were obtained over the abdomen in various projections. INDICATION: Elevated LFTs and renal failure FINDINGS: Liver measures up to 25 cm. There is increased echogenicity compatible with fatty infiltration. There is no biliary ductal dilatation. Common bile duct measures 5.6 mm. There is no cholelithiasis, gallbladder wall thickening or pericholecystic fluid. The pancreas is largely obscured by bowel gas. Spleen measures 12.6 cm. The visualized aorta is nonaneurysmal. IVC is patent. Both kidneys are normal in appearance. There is no ascites. IMPRESSION: Hepatomegaly and fatty infiltration of the liver, otherwise unremarkable abdominal ultrasound. Dictated by: Dictated on workstation # [id number]
--- NOTE | 2018-07-23 16:01 | Progress Note-Hospitalist ---
Progress Note Progress Notes/Assess & Plan Date Seen 07/23/18 Time Seen by Provider: 15:58 Assessment & Plan The patient remains paralyzed and sedated. His white blood count has declined from 16,000-7000. His lactic acid declined serially from 3.55-2.46-1.77 today. His potassium has been corrected from 6.6-4.8. His blood gases show continued acidosis with a pH repeatedly at the 7.30 level. The PCO2 is at the 50 level. Family was in the room and allowed that he had spent 2 weeks in the hospital at [facility] with pneumonia and respiratory failure and on the ventilator. They were not able to state precise dates but stated this was about 2 weeks prior to his admission here. Physical exam: The pain patient is deeply sedated. He is ventilated. Lungs are clear. CV is regular. Abdomen is quite obese. Extremities are symmetrical there is one plus pedal edema. Impression: Diabetes mellitus type II 2.respiratory failure. 3.acidosis which appears to be combined metabolic and respiratory. 3.morbid obesity. Plan: Continue present measures. Focused Exam Lactate Level 07/22/18 10:47: Lactic Acid Level 3.55*H 07/22/18 13:30: Lactic Acid Level 2.46*H 07/22/18 16:00: Lactic Acid Level 1.77 Time of Focused Exam: 10:15 KEL LAKE MD Jul 23, 2018 16:01
--- NOTE | 2018-07-23 18:42 | Consultation-Cardiology ---
HPI-Cardiology Cardiology Consultation: Date of Consultation 07/23/18 Time Seen by a Provider: 18:10 Date of Admission Attending Physician David Tucker MD Admitting Physician Elijah Nuno MD Consulting Physician RAMNO JOYCE MD, MA, FACP, FACC, [facility], CCDS Physician requesting consult: Dr Deal HPI: Chief Complaint: LBBB Respiratory failure Mr. Ling is a 62 year old male admitted to ICU 11 from the ED. He is currently intubated and sedated. There is no family at the bedside. Information has been obtained via chart review and discuss with nursing. He was brought to the ED from [facility] unresponsive. According to ED note family reported he was nauseated and had several episodes of emesis at home. EMS reports he was found to have a systolic BP in the 60's. He has a known h/o chronic narcotic use d/t chronic back/joint pain. In the ED he remained obtunded. He was found to be in renal failure with hyperkalemia. He was then intubated. He has a h/o DM, although per EMS his glucose was in the 200's. [id number]-Zmwqec Hx Patient Social History Alcohol Use: Denies Use Recreational Drug Use: No Smoking Status: Former Smoker Former smoker/When Quit: Sep 29, 2009 Type Used: Cigarettes, Smokeless Tobacco Recent Foreign Travel: No Recent Infectious Disease Expo: No Hospitalization with Isolation: Denies Immunizations Up To Date Tetanus Booster (TDap): Unknown Past Medical History PMH As described under Assessment. Family Medical History Family History: Diabetes mellitus 19 MOTHER G8 SISTER Hypertension 19 FATHER 19 MOTHER Myocardial infarction 19 FATHER (STROKES) Allergies and Home Medications Allergies Coded Allergies: No Known Drug Allergies (Unverified , 12/09/14) Home Medications Albuterol Sulfate 18 Gm Hfa.aer.ad, 1-2 PUFF IH QID, (Reported) Amitriptyline HCl 50 Mg Tablet, 50 MG PO HS, (Reported) Amlodipine Besylate 5 Mg Tablet, 5 MG PO DAILY, (Reported) Budesonide/Formoterol Fumarate 10.2 Gm Hfa.aer.ad, 2 PUFF IH BID, (Reported) Cholecalciferol (Vitamin D3) 1,000 Unit Capsule, 1,000 UNIT PO DAILY, (Reported) Cyclobenzaprine HCl 10 Mg Tablet, 10 MG PO HS, (Reported) Diazepam 2 Mg Tablet, 2 MG PO Q8H PRN for ANXIETY, (Reported) Diclofenac Sodium 75 Mg Tablet.dr, 75 MG PO BID, (Reported) Fluticasone Propionate 16 Gm [place].susp, 2 SPRAYS NSEACH DAILY, (Reported) Gabapentin 600 Mg Tablet, 600 MG PO TID, (Reported) Glimepiride 4 Mg Tablet, 4 MG PO BID, (Reported) Insulin Aspart 100 Unit/1 Ml Susp, 30 UNITS SQ AC, (Reported) Insulin Determir 1,000 Units/10 Ml Soln, 30 UNITS SQ BID, (Reported) Lisinopril 20 Mg Tablet, 20 MG PO BID, (Reported) Meclizine HCl 25 Mg Tablet, 12.5 MG PO QID, (Reported) TAKES 1/2 OF A (25 MG) TABLET Morphine Sulfate 60 Mg Tablet.er, 60 MG PO Q12H, (Reported) Oxycodone HCl/Acetaminophen 1 Each Tablet, 1 TAB PO TID PRN for PAIN-MODERATE, ( Reported) Solifenacin Succinate 5 Mg Tablet, 5 MG PO DAILY, (Reported) Patient Home Medication List Home Medication List Reviewed: Yes Physical Exam-Cardiology Physical Exam Vital Signs/I&O 07/23/18 07/23/18 07/23/18 07/23/18 07:00 07:00 08:00 08:00 Pulse 113 112 107 Resp 21 21 B/P (MAP) 111/58 (75) 108/53 (71) Pulse Ox 94 95 93 O2 Delivery Mechanical Ventilator Mechanical Ventilator Mechanical Ventilator O2 Flow Rate 35.00 35.00 FiO2 35 07/23/18 07/23/18 07/23/18 07/23/18 08:15 09:00 09:59 10:00 Pulse 104 96 91 91 Resp 22 22 B/P (MAP) 105/57 (73) 105/59 105/60 (75) Pulse Ox 95 96 96 96 O2 Delivery Mechanical Ventilator Mechanical Ventilator O2 Flow Rate 35.00 35.00 35.00 FiO2 35 07/23/18 07/23/18 07/23/18 07/23/18 10:27 11:00 11:32 12:00 Temp 98.3 Pulse 90 96 97 Resp 22 21 21 B/P (MAP) 110/59 (76) 109/58 (75) Pulse Ox 97 95 91 O2 Delivery Mechanical Ventilator Mechanical Ventilator O2 Flow Rate 35.00 35.00 FiO2 35 07/23/18 07/23/18 07/23/18 07/23/18 12:11 12:21 12:44 13:00 Pulse 96 96 94 Resp 22 22 B/P (MAP) 145/69 (94) Pulse Ox 93 93 94 O2 Delivery Mechanical Ventilator Mechanical Ventilator O2 Flow Rate 35.00 FiO2 35 35 07/23/18 07/23/18 07/23/18 07/23/18 13:28 14:00 15:00 15:01 Temp 98.3 Pulse 96 93 90 90 Resp 22 21 22 B/P (MAP) 124/66 102/57 (72) 113/58 (76) Pulse Ox 93 91 93 94 O2 Delivery Mechanical Ventilator Mechanical Ventilator Mechanical Ventilator O2 Flow Rate 35.00 35.00 35.00 FiO2 35 07/23/18 07/23/18 07/23/18 07/23/18 15:45 16:00 16:00 16:38 Temp 98.4 98.4 Pulse 91 91 Resp 21 B/P (MAP) 116/62 (80) 116/62 Pulse Ox 93 94 93 O2 Delivery Mechanical Ventilator Mechanical Ventilator Mechanical Ventilator O2 Flow Rate 35.00 35.00 FiO2 35 07/23/18 07/23/18 17:00 18:00 Pulse 87 85 Resp 21 21 B/P (MAP) 122/67 (85) 145/84 (104) Pulse Ox 94 96 O2 Delivery Mechanical Ventilator Mechanical Ventilator O2 Flow Rate 35.00 35.00 07/23/18 00:00 Intake Total 3224 ml Output Total 1990 ml Balance 1234 ml Capillary Refill : Less Than 3 Seconds Constitutional: other (intubated and sedated) HEENT: No ulceration Neck: No carotid bruit; carotid pulses are 2 + bilaterally Respiratory: chest expansion is symmetric, chest is bilaterally symmetric, other (scattered wheezes; coarse lower lobes; fair air entry) Cardiovascular: regular rate-rhythm; No JVD; S1 and S2 Gastrointestinal: soft, round, audible bowel sounds Rectal: deferred Genital/Rectal: other (urinary catheter to DD with clear, yellow urine) Extremities: other (mild pedal edema bilat) Neurologic/Psychiatric: other (intubated and sedated; appears to move extremities) Skin: normal color, warm/dry; No rash, No ulcerations Data Review Labs Laboratory Tests 07/22/18 23:12: Glucometer 235H 07/23/18 03:07: White Blood Count 7.0, Red Blood Count 3.86L, Hemoglobin 11.1L, Hematocrit 36L, Mean Corpuscular Volume 94, Mean Corpuscular Hemoglobin 29, Mean Corpuscular Hemoglobin Concent 31L, Red Cell Distribution Width 15.3H, Platelet Count 210, Mean Platelet Volume 11.1H, Neutrophils (%) (Auto) 71, Lymphocytes (%) (Auto) 13 , Monocytes (%) (Auto) 16H, Eosinophils (%) (Auto) 0, Basophils (%) (Auto) 0, Neutrophils # (Auto) 5.0, Lymphocytes # (Auto) 0.9L, Monocytes # (Auto) 1.1H, Eosinophils # (Auto) 0.0, Basophils # (Auto) 0.0, Blood Gas Puncture Site R RAD , Blood Gas Patient Temperature 99.4, Arterial Blood pH 7.27*L, Arterial Blood Partial Pressure CO2 50H, Arterial Blood Partial Pressure O2 75L, Arterial Blood HCO3 22L, Arterial Blood Total CO2 23.8, Arterial Blood Oxygen Saturation 95, Arterial Blood Base Excess -3.4L, Vipul Test YES-POS, Blood Gas Ventilator Setting YES, Blood Gas Inspired Oxygen 35, Sodium Level 145, Potassium Level 4.8 , Chloride Level 112H, Carbon Dioxide Level 20L, Anion Gap 13, Blood Urea Nitrogen 48H, Creatinine 2.32H, Estimat Glomerular Filtration Rate 29, BUN/ Creatinine Ratio 21, Glucose Level 240H, Calcium Level 8.3L, Corrected Calcium 8.9, Phosphorus Level 2.7, Magnesium Level 2.0, Total Bilirubin 0.5, Aspartate Amino Transf (AST/SGOT) 41H, Alanine Aminotransferase (ALT/SGPT) 43, Alkaline Phosphatase 50, Total Protein 6.0L, Albumin 3.3 07/23/18 11:55: Glucometer 168H 07/23/18 17:57: Glucometer 242H Microbiology 07/22/18 Blood Culture - Preliminary, Resulted No growth 07/22/18 MRSA Screen - Final, Complete MRSA not isolated 07/22/18 Urine Culture - Final, Complete NO GROWTH A/P-Cardiology Assessment/Admission Diagnosis Acute resp failure, probably due to aspiration pneumonia Acute renal failure - improving UTI with sepsis - management per medical/ICU services Altered mental status changes - likely secondary to sepsis and/or chronic narcotic use Hyperkalemia secondary to acute renal failure ST with LBBB DM COPD Chronic narcotic use d/t chronic back pain Echo of 07/23/18: LVEF 65-70%, mild conc LVH, grade 1 max dysfunction Discussion and Recomendations * Critically ill * Continue current regimen * Monitor labs Clinical Quality Measures DVT/VTE Risk/Contraindication: Risk Factor Score Per Nursin RFS Level Per Nursing on Admit: 4+=Very High RAMON JOYCE MD FACP FAC CCDS Jul 23, 2018 18:42
[2018-07-23] MEDS: DEXMEDETOMIDINE INJECTION 1,000 MCG in NS (IVPB) 250 ML IV SCH (21:01)
--- NOTE | 2018-07-23 22:47 | Consultation (Surgery) ---
History of Present Illness History of Present Illness Patient Consulted On(mayco/time) 07/22/18 16:41 Time Seen by Provider: 16:34 History of Present Illness Surgery asked to consult regarding possible acute Abdomen. This is a late entry note, pt was first seen yesterday.....I met pt in CT room. HPI per ED: The patient presents by [facility] from the patient's home with chief complaint of altered mental status. They state when they arrived his blood sugar was 270 and his blood pressure was in the 60s systolic. They were unable to establish an IV. The patient does have known use of diazepam and morphine but they do not have an IV they did not give any Narcan. They do not know much about the patient but he does have a history of diabetes, COPD. family remarks that yesterday afternoon when the patient came in he was hot sweaty but did not have a fever that they are aware of and had several episodes of emesis without blood in it. No diarrhea. No one else is sick in the family. The patient did not feel well so he went to lay down and they got him an appointment primary care doctor on Sunday morning. Throughout the night however the patient did not improve and in the morning when they could not get him to wake up they called EMS. The patient is obtunded and unable to give any meaningful history. The states that the patient has not taken any extra opiates or benzos. Patient does not use a routine inhaler and has not been using it more lately. He has not had a cough fever or chills lately nor has he had any other specific complaint. Pt was intubated and sedated when I saw him. Apparently when his son came into the ICU he stated "wow his stomach has never looked that big" and Dr. Deal elicited grimace or withdrawal when palpating abdomen deeply. All other information obtained from chart. Allergies and Home Medications Allergies Coded Allergies: No Known Drug Allergies (Unverified , 12/09/14) Home Medications Albuterol Sulfate 18 Gm Hfa.aer.ad, 1-2 PUFF IH QID, (Reported) Amitriptyline HCl 50 Mg Tablet, 50 MG PO HS, (Reported) Amlodipine Besylate 5 Mg Tablet, 5 MG PO DAILY, (Reported) Budesonide/Formoterol Fumarate 10.2 Gm Hfa.aer.ad, 2 PUFF IH BID, (Reported) Cholecalciferol (Vitamin D3) 1,000 Unit Capsule, 1,000 UNIT PO DAILY, (Reported) Cyclobenzaprine HCl 10 Mg Tablet, 10 MG PO HS, (Reported) Diazepam 2 Mg Tablet, 2 MG PO Q8H PRN for ANXIETY, (Reported) Diclofenac Sodium 75 Mg Tablet.dr, 75 MG PO BID, (Reported) Fluticasone Propionate 16 Gm [place].susp, 2 SPRAYS NSEACH DAILY, (Reported) Gabapentin 600 Mg Tablet, 600 MG PO TID, (Reported) Glimepiride 4 Mg Tablet, 4 MG PO BID, (Reported) Insulin Aspart 100 Unit/1 Ml Susp, 30 UNITS SQ AC, (Reported) Insulin Determir 1,000 Units/10 Ml Soln, 30 UNITS SQ BID, (Reported) Lisinopril 20 Mg Tablet, 20 MG PO BID, (Reported) Meclizine HCl 25 Mg Tablet, 12.5 MG PO QID, (Reported) TAKES 1/2 OF A (25 MG) TABLET Morphine Sulfate 60 Mg Tablet.er, 60 MG PO Q12H, (Reported) Oxycodone HCl/Acetaminophen 1 Each Tablet, 1 TAB PO TID PRN for PAIN-MODERATE, ( Reported) Solifenacin Succinate 5 Mg Tablet, 5 MG PO DAILY, (Reported) Patient Home Medication List Home Medication List Reviewed: Yes Past Pqcaorm-Rmjxcb-Ggpjgf Hx Patient Social History Alcohol Use: Denies Use Recreational Drug Use: No Smoking Status: Former Smoker Former Smoker, Quit: Jan 26, 2015 Type Used: Cigarettes, Smokeless Tobacco Recent Foreign Travel: No Contact w/Someone Who Travel: No Recent Infectious Disease Expo: No Recent Hopitalizations: No Immunizations Up To Date Tetanus Booster (TDap): Unknown PED Vaccines UTD: No Seasonal Allergies Seasonal Allergies: No Surgeries History of Surgeries: Yes (L SHOULDER, R ANKLE, PENILE IMPLANT, ) Surgeries: Testicular, Vasectomy Respiratory History of Respiratory Disorde: Yes (oxygen at HS, prn during the day) Respiratory Disorders: COPD Cardiovascular History of Cardiac Disorders: Yes Cardiac Disorders: Hypertension Neurological History of Neurological Disord: Yes Neurological Disorders: Neuropathy Reproductive System Hx Reproductive Disorders: Yes (ARTIFICAL TESTICLE, ) Sexually Transmitted Disease: No HIV/AIDS: No Genitourinary History of Genitourinary Disor: Yes Genitourinary Disorders: Renal Failure Gastrointestinal History of Gastrointestinal Di: No Musculoskeletal History of Musculoskeletal Dis: Yes Musculoskeletal Disorders: Arthritis, Chronic Back Pain Endocrine History of Endocrine Disorders: Yes Endocrine Disorders: Diabetes, Insulin dep HEENT History of HEENT Disorders: No Cancer History of Cancer: No Psychosocial History of Psychiatric Problem: No Integumentary History of Skin or Integumenta: No Blood Transfusions History of Blood Disorders: No Adverse Reaction to a Blood Tr: No Family Medical History Significant Family History: Heart Disease, CVA, Diabetes Family Medial History: Diabetes mellitus 19 MOTHER G8 SISTER Hypertension 19 FATHER 19 MOTHER Myocardial infarction 19 FATHER (STROKES) Review of Systems-General ROS-Unable to Obtain: pt intubated, no family at bedside Physical Exam-General Problems Physical Exam Vital Signs Vital Signs - First Documented 07/22/18 07/22/18 07/22/18 08:17 10:32 11:45 Temp 99.7 Pulse 110 Resp 18 B/P (MAP) 80/59 (66) Pulse Ox 89 O2 Delivery Nasal Cannula O2 Flow Rate 60.00 FiO2 60 Capillary Refill : Less Than 3 Seconds General Appearance: other (pt intubated and sedated) Eyes: Bilateral Eye PERRL, Bilateral Eye EOMI HEENT: No scleral icterus (R), No scleral icterus (L), No pale conjunctivae (R) , No pale conjunctivae (L); other (mucous membranes moist) Respiratory: lungs clear, normal breath sounds Cardiovascular: regular rate, rhythm, no murmur Gastrointestinal: soft, distended, hernia (small umbilical) Extremities: no pedal edema, normal capillary refill Neurologic/Psychiatric: other (unable to assess) Lymphatic: no adenopathy (neck, axilla or groin) Data Review Labs Laboratory Tests 07/22/18 23:12: Glucometer 235H 07/23/18 03:07: White Blood Count 7.0, Red Blood Count 3.86L, Hemoglobin 11.1L, Hematocrit 36L, Mean Corpuscular Volume 94, Mean Corpuscular Hemoglobin 29, Mean Corpuscular Hemoglobin Concent 31L, Red Cell Distribution Width 15.3H, Platelet Count 210, Mean Platelet Volume 11.1H, Neutrophils (%) (Auto) 71, Lymphocytes (%) (Auto) 13 , Monocytes (%) (Auto) 16H, Eosinophils (%) (Auto) 0, Basophils (%) (Auto) 0, Neutrophils # (Auto) 5.0, Lymphocytes # (Auto) 0.9L, Monocytes # (Auto) 1.1H, Eosinophils # (Auto) 0.0, Basophils # (Auto) 0.0, Blood Gas Puncture Site R RAD , Blood Gas Patient Temperature 99.4, Arterial Blood pH 7.27*L, Arterial Blood Partial Pressure CO2 50H, Arterial Blood Partial Pressure O2 75L, Arterial Blood HCO3 22L, Arterial Blood Total CO2 23.8, Arterial Blood Oxygen Saturation 95, Arterial Blood Base Excess -3.4L, Vipul Test YES-POS, Blood Gas Ventilator Setting YES, Blood Gas Inspired Oxygen 35, Sodium Level 145, Potassium Level 4.8 , Chloride Level 112H, Carbon Dioxide Level 20L, Anion Gap 13, Blood Urea Nitrogen 48H, Creatinine 2.32H, Estimat Glomerular Filtration Rate 29, BUN/ Creatinine Ratio 21, Glucose Level 240H, Calcium Level 8.3L, Corrected Calcium 8.9, Phosphorus Level 2.7, Magnesium Level 2.0, Total Bilirubin 0.5, Aspartate Amino Transf (AST/SGOT) 41H, Alanine Aminotransferase (ALT/SGPT) 43, Alkaline Phosphatase 50, Total Protein 6.0L, Albumin 3.3 07/23/18 11:55: Glucometer 168H 07/23/18 17:57: Glucometer 242H 07/23/18 20:11: Glucometer 212H Microbiology 07/22/18 Blood Culture - Preliminary, Resulted No growth 07/22/18 MRSA Screen - Final, Complete MRSA not isolated 07/22/18 Urine Culture - Final, Complete NO GROWTH Assessment/Plan Assessment/Plan Assessment/Plan Hypotension R/O sepsis ??Abdominal Pain Renal Failure DM Pt did not have an acute abdomen. I did not see anything obvious on CT; although there was some minimal fluid in pelvis, there was no free air or thickened intestine or inflammatory changes. I am unsure why pt had GCS 7 when he came to the ER or why he is non-responsive. Continue supportive care. I will follow along. Clinical Quality Measures DVT/VTE Risk/Contraindication: Risk Factor Score Per Nursin RFS Level Per Nursing on Admit: 4+=Very High MADINA CAMILO DO Jul 23, 2018 22:47
--- NOTE | 2018-07-23 22:52 | Progress Note ---
Subjective Time Seen by a Provider: 09:55 Subjective/Events-last exam Pt seen and examined, still sedated on vent. Nurse states they tried weaning him, but it did not work. No other major changes; however, cardiology was consulted. Review of Systems unable to obtain ROS Focused Exam Lactate Level 07/22/18 10:47: Lactic Acid Level 3.55*H 07/22/18 13:30: Lactic Acid Level 2.46*H 07/22/18 16:00: Lactic Acid Level 1.77 Time of Focused Exam: 10:15 Objective Exam Vital Signs Date Time Temp Pulse Resp B/P (MAP) Pulse Ox O2 Delivery O2 Flow Rate FiO2 07/23/18 22:18 85 22 93 35 07/23/18 20:02 151/81 07/23/18 20:00 94 Mechanical Ventilator 35 07/23/18 19:59 92 22 93 35 07/23/18 19:45 98.0 07/23/18 18:35 84 22 95 35 07/23/18 18:00 85 21 145/84 (104) 96 Mechanical Ventilator 35.00 07/23/18 17:00 87 21 122/67 (85) 94 Mechanical Ventilator 35.00 07/23/18 16:38 98.4 91 21 116/62 93 Mechanical Ventilator 35.00 07/23/18 16:00 91 21 116/62 (80) 94 Mechanical Ventilator 35.00 07/23/18 16:00 93 Mechanical Ventilator 35 07/23/18 15:45 98.4 07/23/18 15:01 90 22 94 35 07/23/18 15:00 90 21 113/58 (76) 93 Mechanical Ventilator 35.00 07/23/18 14:00 93 21 102/57 (72) 91 Mechanical Ventilator 35.00 07/23/18 13:28 98.3 96 22 124/66 93 Mechanical Ventilator 35.00 07/23/18 13:00 94 22 145/69 (94) 94 Mechanical Ventilator 35.00 07/23/18 12:44 96 07/23/18 12:21 96 22 93 35 07/23/18 12:11 93 Mechanical Ventilator 35 07/23/18 12:00 97 21 109/58 (75) 91 Mechanical Ventilator 35.00 07/23/18 11:32 98.3 07/23/18 11:00 96 21 110/59 (76) 95 Mechanical Ventilator 35.00 07/23/18 10:27 90 22 97 35 07/23/18 10:00 91 22 105/60 (75) 96 Mechanical Ventilator 35.00 07/23/18 09:59 91 22 105/59 96 35.00 07/23/18 09:00 96 21 105/57 (73) 96 Mechanical Ventilator 35.00 07/23/18 08:15 104 22 95 35 07/23/18 08:00 93 Mechanical Ventilator 35 07/23/18 08:00 107 21 108/53 (71) 95 Mechanical Ventilator 35.00 07/23/18 07:00 112 07/23/18 07:00 113 21 111/58 (75) 94 Mechanical Ventilator 35.00 07/23/18 06:11 110 22 92 35 07/23/18 06:04 Mechanical Ventilator 35.00 07/23/18 06:00 111 21 103/52 (69) 92 Mechanical Ventilator 35.00 07/23/18 05:00 113 22 105/55 (72) 94 Mechanical Ventilator 35.00 07/23/18 04:37 116 22 94 35 07/23/18 04:00 117 22 106/54 (71) 93 Mechanical Ventilator 35.00 07/23/18 03:20 99.4 117 22 93 Mechanical Ventilator 35.00 07/23/18 03:20 93 Mechanical Ventilator 35 07/23/18 03:00 117 21 108/50 (69) 92 Mechanical Ventilator 35.00 07/23/18 02:27 112 22 93 35 07/23/18 02:16 118/56 Mechanical Ventilator 35.00 07/23/18 02:00 112 22 112/57 (75) 93 Mechanical Ventilator 35.00 07/23/18 01:00 112 118/59 (78) 93 Mechanical Ventilator 35.00 07/23/18 01:00 112 07/23/18 00:43 112 22 94 35 07/23/18 00:00 111 22 119/61 (80) 94 Mechanical Ventilator 35.00 07/22/18 23:05 99.4 Mechanical Ventilator 35.00 07/22/18 23:05 95 Mechanical Ventilator 35 07/22/18 23:00 109 21 99/43 (61) 94 Mechanical Ventilator 35.00 07/22/18 22:54 109 22 94 35 I & O 07/23/18 07:00 Intake Total 5674 ml Output Total 3240 ml Balance 2434 ml Capillary Refill : Less Than 3 Seconds General Appearance: Chronically ill, Obese, Other (sedated on vent ) HEENT: Pharynx Normal, Moist Mucous Membranes (mildly dry with ibarra thick mucus the back of the throat); No Tonsillar Exudate, No Tonsillar Enlargement Respiratory: Normal Breath Sounds, No Accessory Muscle Use Cardiovascular: Regular Rate, Rhythm, No Edema, No Murmur, Normal Peripheral Pulses Peripheral Pulses: 2+ Radial Pulses (R), 2+ Radial Pulses (L) Gastrointestinal: soft, distended (mild), hernia (small umbilical) Extremity: Normal Capillary Refill, Normal Inspection Neurologic/Psychiatric: Other (GCS 6 E2V1M3) Skin: Normal Color, Warm/Dry Lymphatic: No Adenopathy Results Lab Laboratory Tests 07/22/18 23:12: Glucometer 235H 07/23/18 03:07: White Blood Count 7.0, Red Blood Count 3.86L, Hemoglobin 11.1L, Hematocrit 36L, Mean Corpuscular Volume 94, Mean Corpuscular Hemoglobin 29, Mean Corpuscular Hemoglobin Concent 31L, Red Cell Distribution Width 15.3H, Platelet Count 210, Mean Platelet Volume 11.1H, Neutrophils (%) (Auto) 71, Lymphocytes (%) (Auto) 13 , Monocytes (%) (Auto) 16H, Eosinophils (%) (Auto) 0, Basophils (%) (Auto) 0, Neutrophils # (Auto) 5.0, Lymphocytes # (Auto) 0.9L, Monocytes # (Auto) 1.1H, Eosinophils # (Auto) 0.0, Basophils # (Auto) 0.0, Blood Gas Puncture Site R RAD , Blood Gas Patient Temperature 99.4, Arterial Blood pH 7.27*L, Arterial Blood Partial Pressure CO2 50H, Arterial Blood Partial Pressure O2 75L, Arterial Blood HCO3 22L, Arterial Blood Total CO2 23.8, Arterial Blood Oxygen Saturation 95, Arterial Blood Base Excess -3.4L, Vipul Test YES-POS, Blood Gas Ventilator Setting YES, Blood Gas Inspired Oxygen 35, Sodium Level 145, Potassium Level 4.8 , Chloride Level 112H, Carbon Dioxide Level 20L, Anion Gap 13, Blood Urea Nitrogen 48H, Creatinine 2.32H, Estimat Glomerular Filtration Rate 29, BUN/ Creatinine Ratio 21, Glucose Level 240H, Calcium Level 8.3L, Corrected Calcium 8.9, Phosphorus Level 2.7, Magnesium Level 2.0, Total Bilirubin 0.5, Aspartate Amino Transf (AST/SGOT) 41H, Alanine Aminotransferase (ALT/SGPT) 43, Alkaline Phosphatase 50, Total Protein 6.0L, Albumin 3.3 07/23/18 11:55: Glucometer 168H 07/23/18 17:57: Glucometer 242H 07/23/18 20:11: Glucometer 212H Microbiology 07/22/18 Blood Culture - Preliminary, Resulted No growth 07/22/18 MRSA Screen - Final, Complete MRSA not isolated 07/22/18 Urine Culture - Final, Complete NO GROWTH Assessment/Plan Assessment/Plan Assessment/Plan Hypotension R/O sepsis ??Abdominal Pain Renal Failure DM US done did not show anything acute, I do not think pt's condition is due to anything surgical in nature. I can reconsult if anything changes. Clinical Quality Measures DVT/VTE Risk/Contraindication: Risk Factor Score Per Nursin RFS Level Per Nursing on Admit: 4+=Very High MADINA CAMILO DO Jul 23, 2018 22:52
[2018-07-24] VITALS (36 sets, daily range): BP systolic 152–206; BP diastolic 79–101
[2018-07-24] MEDS: DEXMEDETOMIDINE INJECTION 1,000 MCG in NS (IVPB) 250 ML IV SCH ×3 (01:18→23:30)
[2018-07-24] MEDS: RT-ALBUTEROL/IPRATROPIUM 3 ML (DUONEB) VIAL INH SCH ×6 (03:16→22:03)
[2018-07-24 03:18] LABS: BASOPHILS % (AUTO) 0 % (0-10); EOSINOPHILS % (AUTO) 0 % (0-10); HEMATOCRIT 35 % (40-54); LYMPHOCYTES # (AUTO) 0.8 X 10^3 (1.0-4.0); LYMPHOCYTES % (AUTO) 11 % (12-44); MEAN CORPUSCULAR HEMOGLOBIN 29 PG (25-34); MEAN CORPUSCULAR HGB CONC 31 G/DL (32-36); MEAN CORPUSCULAR VOLUME 92 FL (80-99); MEAN PLATELET VOLUME 10.8 FL (7.4-10.4); MONOCYTES % (AUTO) 14 % (0-12); NEUTROPHILS % (AUTO) 74 % (42-75); PLATELET COUNT 183 10^3/uL (130-400); RED CELL DISTRIBUTION WIDTH 14.9 % (10.0-14.5); WHITE BLOOD COUNT 6.8 10^3/uL (4.3-11.0)
[2018-07-24] MEDS: PROPOFOL DRIP (ICU) 100 ML IV SCH ×5 (03:33→23:32)
[2018-07-24 03:38] LABS: ALBUMIN 3.3 GM/DL (3.2-4.5); BILIRUBIN,TOTAL 0.4 MG/DL (0.1-1.0); CALCIUM 8.6 MG/DL (8.5-10.1); CREATININE SERUM 1.47 MG/DL (0.60-1.30); MAGNESIUM 2.1 MG/DL (1.8-2.4); PHOSPHORUS 2.1 MG/DL (2.3-4.7); POTASSIUM 4.4 MMOL/L (3.6-5.0)
[2018-07-24 03:45] LABS: ABG BASE EXCESS -3.3 MMOL/L (-2.5-2.5); ABG OXYGEN SATURATION 93 % (94-100); ABG PCO2 41 MMHG (35-45); ABG PO2 62 MMHG (79-93)
[2018-07-24 03:49] LABS: ABG PH 7.34 (7.37-7.43); ALLENS TEST YES-POS; INSPIRED O2 35%; PATIENT TEMP 97.6; VENTILATOR YES
[2018-07-24] MEDS: MAGNESIUM 1 GM/100 ML IVPB 100 ML IV SCH (05:48)
[2018-07-24] MEDS: NOREPINEPHRINE 4 MG in NS (IVPB) 250 ML IV SCH (05:48)
[2018-07-24] MEDS: POTASSIUM CL 10MEQ/50ML IVPB 50 ML IV SCH (05:48)
[2018-07-24] MEDS: KCL 20 MEQ TAB (K-DUR) PO SCH (05:48)
[2018-07-24] MEDS: PIPERACILLIN/TAZOBACTAM (BULK) 4.5 GM in NS (IVPB) 100 ML IV SCH ×3 (05:49→22:37)
[2018-07-24] MEDS: inSUlin ASPART (NovoLOG) 1 UNIT/0.01 ML (CHARGE PER UNIT) SC SCH ×4 (05:49→23:27)
[2018-07-24] MEDS: fentaNYL INJECTION 1,250 MCG in NS (IVPB) 250 ML IV SCH (05:57)
[2018-07-24] MEDS: NS IV 1000 ML 1,000 ML IV SCH (06:09)
--- NOTE | 2018-07-24 06:45 | NUR ---
Dr. Deal at bedside. Verbal order to stop propofol at this time et stated will attempt to wean pt off vent today. NS also DC'd at this time.
--- NOTE | 2018-07-24 06:53 | Pulmonary Progress Note ---
Subjective Time Seen by a Provider: 05:40 Subjective/Events-last exam Pt is sedated on vent. Sepsis Event Evaluation Height, Weight, BMI Height: 6'2.00" Weight: 268lbs. 5.0oz. 121.048755dv; 36.2 BMI Method:Stated Focused Exam Lactate Level 07/22/18 10:47: Lactic Acid Level 3.55*H 07/22/18 13:30: Lactic Acid Level 2.46*H 07/22/18 16:00: Lactic Acid Level 1.77 Time of Focused Exam: 10:15 Exam Exam Vital Signs Date Time Temp Pulse Resp B/P (MAP) Pulse Ox O2 Delivery O2 Flow Rate FiO2 07/24/18 06:00 77 22 171/86 (114) 94 Mechanical Ventilator 35.00 07/24/18 05:00 82 22 164/86 (112) 93 Mechanical Ventilator 35.00 07/24/18 04:00 97.6 07/24/18 04:00 90 Mechanical Ventilator 35 07/24/18 04:00 86 22 152/79 (103) 92 Mechanical Ventilator 35.00 07/24/18 03:33 161/85 07/24/18 03:16 77 22 94 35 07/24/18 03:00 77 21 164/82 (109) 94 Mechanical Ventilator 35.00 07/24/18 02:00 76 22 166/81 (109) 94 Mechanical Ventilator 35.00 07/24/18 01:00 79 21 162/83 (109) 94 Mechanical Ventilator 35.00 07/24/18 01:00 79 07/24/18 00:43 79 22 94 35 07/24/18 00:00 94 Mechanical Ventilator 35 07/24/18 00:00 81 22 158/83 (108) 94 Mechanical Ventilator 35.00 07/24/18 00:00 97.1 07/23/18 23:42 155/81 07/23/18 23:00 83 21 160/85 (110) 93 Mechanical Ventilator 35.00 07/23/18 22:18 85 22 93 35 07/23/18 22:00 84 21 161/82 (108) 95 Mechanical Ventilator 35.00 07/23/18 21:00 87 21 156/81 (106) 95 Mechanical Ventilator 35.00 07/23/18 20:02 151/81 07/23/18 20:00 94 Mechanical Ventilator 35 07/23/18 20:00 91 22 151/78 (102) 93 Mechanical Ventilator 35.00 07/23/18 19:59 92 22 93 35 07/23/18 19:45 98.0 07/23/18 19:00 90 07/23/18 19:00 90 22 146/79 (101) 91 Mechanical Ventilator 35.00 07/23/18 18:35 84 22 95 35 07/23/18 18:00 85 21 145/84 (104) 96 Mechanical Ventilator 35.00 07/23/18 17:00 87 21 122/67 (85) 94 Mechanical Ventilator 35.00 07/23/18 16:38 98.4 91 21 116/62 93 Mechanical Ventilator 35.00 07/23/18 16:00 91 21 116/62 (80) 94 Mechanical Ventilator 35.00 07/23/18 16:00 93 Mechanical Ventilator 35 07/23/18 15:45 98.4 07/23/18 15:01 90 22 94 35 07/23/18 15:00 90 21 113/58 (76) 93 Mechanical Ventilator 35.00 07/23/18 14:00 93 21 102/57 (72) 91 Mechanical Ventilator 35.00 07/23/18 13:28 98.3 96 22 124/66 93 Mechanical Ventilator 35.00 07/23/18 13:00 94 22 145/69 (94) 94 Mechanical Ventilator 35.00 07/23/18 12:44 96 07/23/18 12:21 96 22 93 35 07/23/18 12:11 93 Mechanical Ventilator 35 07/23/18 12:00 97 21 109/58 (75) 91 Mechanical Ventilator 35.00 07/23/18 11:32 98.3 07/23/18 11:00 96 21 110/59 (76) 95 Mechanical Ventilator 35.00 07/23/18 10:27 90 22 97 35 07/23/18 10:00 91 22 105/60 (75) 96 Mechanical Ventilator 35.00 07/23/18 09:59 91 22 105/59 96 35.00 07/23/18 09:00 96 21 105/57 (73) 96 Mechanical Ventilator 35.00 07/23/18 08:15 104 22 95 35 07/23/18 08:00 93 Mechanical Ventilator 35 07/23/18 08:00 107 21 108/53 (71) 95 Mechanical Ventilator 35.00 07/23/18 07:00 112 07/23/18 07:00 113 21 111/58 (75) 94 Mechanical Ventilator 35.00 I & O 07/24/18 07:00 Intake Total 2642 ml Output Total 2225 ml Balance 417 ml Height & Weight Height: 6'2.00" Weight: 268lbs. 5.0oz. 121.631090oz; 36.2 BMI Method:Stated General Appearance: Chronically ill, Obese, Other (sedated on vent ) HEENT: Pharynx Normal, Moist Mucous Membranes (mildly dry with ibarra thick mucus the back of the throat); No Tonsillar Exudate, No Tonsillar Enlargement Respiratory: Normal Breath Sounds, No Accessory Muscle Use Cardiovascular: Regular Rate, Rhythm, No Edema, No Murmur, Normal Peripheral Pulses Capillary Refill: Less Than 3 Seconds Peripheral Pulses: 2+ Radial Pulses (R), 2+ Radial Pulses (L) Gastrointestinal: soft, distended (mild), hernia (small umbilical) Extremity: Normal Capillary Refill, Normal Inspection Neurologic/Psychiatric: Other (GCS 6 E2V1M3) Skin: Normal Color, Warm/Dry Lymphatic: No Adenopathy Results Lab Laboratory Tests 07/22/18 08:33 07/22/18 16:00 07/23/18 03:07 07/24/18 03:05 Assessment/Plan Assessment/Plan Acute respiratory failure-- with aspiration pneumonia- present at admission -Will do bronchoscopy today -CXR appears worse -Check BNP -Influ is neg -MRSA swab is negative -Continue ventilator care and protocols -Will attempt vent weaning today. D/C sedation -ABG - reviewed -Start SVNs Duoneb Q4 Septic shock - [place] cultures pending - Zosyn and vanco -[place] cultures pending -CT of abd/pelvis is neg -echocardiogram stat -- results - normal EF and no pericardial effusion - per instrument technologist Sinus tach -Monitor -IVF Acute MS changes -- possibly from home narcotics/benzos LBBB - per EKG -Consult cardiology - troponins - neg x 2 -Echocardiogram - normal EF and no pericardial effusion Elevated AST -Abd CT scan was negative -US abd reviewed Acute on chronic renal failure with hyperkalemia -IVF -monitor close Metabolic lactic acidosis - secondary to sepsis r/o abdominal sepsis DM -SSI -Start Levemir -Check A1c MARCI LOPEZ DO July 24, 2018 06:53
[2018-07-24] MEDS ORDERED: SODIUM BICARB 8.4% 50 MEQ/50 ML (ABBOTT) SYR IV ONE (07:00)
[2018-07-24] MEDS: HYDROCORTISONE 100 MG/2 ML (Solu-CORTEF) VIAL IV SCH ×3 (07:35→23:32)
[2018-07-24] MEDS: PANTOPRAZOLE 40 MG (PROTONIX) VIAL IV SCH (07:35)
[2018-07-24] MEDS: ENOXAPARIN 40 MG/0.4 ML (LOVENOX) SYR SC SCH (07:35)
--- NOTE | 2018-07-24 08:00 | Diagnostic Imaging Report ---
Indication: Dyspnea. Comparison made with prior examination from 07/23/2018. Findings: There is cardiomegaly. There is some bibasilar subsegmental atelectasis and/or pneumonitis. Small bilateral pleural effusions. There is no pneumothorax. The mediastinum is unremarkable. ET and NG tubes are in satisfactory position. Impression: Bibasilar subsegmental atelectasis and/or pneumonitis and small bilateral pleural effusions. Cardiomegaly. Dictated by: Dictated on workstation # [id number]
--- NOTE | 2018-07-24 09:24 | Progress Note-Cardiology ---
Cardiology SOAP Progress Note Subjective: Intubated. Sedation being decreased. Moving extremities, but not following commands. Multiple visitors at the bedside. Objective: I&O/Vital Signs 07/23/18 07/23/18 07/23/18 07/23/18 22:00 22:18 23:00 23:42 Pulse 84 85 83 Resp B/P (MAP) 161/82 (108) 160/85 (110) 155/81 Pulse Ox 95 93 93 O2 Delivery Mechanical Ventilator Mechanical Ventilator O2 Flow Rate 35.00 35.00 FiO2 35 07/24/18 07/24/18 07/24/18 07/24/18 00:00 00:00 00:00 00:43 Temp 97.1 Pulse 81 79 Resp B/P (MAP) 158/83 (108) Pulse Ox 94 94 94 O2 Delivery Mechanical Ventilator Mechanical Ventilator O2 Flow Rate 35.00 FiO2 35 35 07/24/18 07/24/18 07/24/18 07/24/18 01:00 01:00 02:00 03:00 Pulse 79 79 76 77 Resp B/P (MAP) 162/83 (109) 166/81 (109) 164/82 (109) Pulse Ox 94 94 94 O2 Delivery Mechanical Ventilator Mechanical Ventilator Mechanical Ventilator O2 Flow Rate 35.00 35.00 35.00 07/24/18 07/24/18 07/24/18 07/24/18 03:16 03:33 04:00 04:00 Pulse 77 86 Resp B/P (MAP) 161/85 152/79 (103) Pulse Ox 94 92 90 O2 Delivery Mechanical Ventilator Mechanical Ventilator O2 Flow Rate 35.00 FiO2 35 35 07/24/18 07/24/18 07/24/18 07/24/18 04:00 05:00 06:00 07:00 Temp 97.6 Pulse 82 77 80 Resp B/P (MAP) 164/86 (112) 171/86 (114) 161/82 (108) Pulse Ox 93 94 94 O2 Delivery Mechanical Ventilator Mechanical Ventilator Mechanical Ventilator O2 Flow Rate 35.00 35.00 35.00 07/24/18 07/24/18 07/24/18 07/24/18 07:10 07:35 08:00 08:00 Temp 97.8 Pulse 98 107 Resp 22 B/P (MAP) 168/80 (109) Pulse Ox 90 90 O2 Delivery Mechanical Ventilator Mechanical Ventilator O2 Flow Rate 35.00 FiO2 40 07/24/18 07/24/18 09:00 09:15 Pulse 108 107 Resp 20 30 B/P (MAP) 186/93 (124) Pulse Ox 92 92 O2 Delivery Mechanical Ventilator O2 Flow Rate 35.00 FiO2 40 07/24/18 00:00 Intake Total 1422 ml Output Total 1025 ml Balance 397 ml Weight (Pounds): 268 Weight (Ounces): 5.0 Weight (Calculated Kilograms): 121.079281 Constitutional: other (intubated and sedated) Respiratory: chest expansion is symmetric, chest is bilaterally symmetric, other (scattered wheezes; coarse lower lobes; fair air entry) Cardiovascular: regular rate-rhythm; No JVD; S1 and S2 Gastrointestional: soft, round, audible bowel sounds Genital/Rectal: other (urinary catheter to DD with clear, yellow urine) Extremities: other (mild pedal edema bilat) Neurologic/Psychiatric: other (intubated and sedated; appears to move extremities) Skin: normal color, warm/dry; No rash, No ulcerations Results/Procedures: Labs Laboratory Tests 07/23/18 11:55: Glucometer 168H 07/23/18 17:57: Glucometer 242H 07/23/18 20:11: Glucometer 212H 07/23/18 23:34: Glucometer 238H 07/24/18 03:05: White Blood Count 6.8, Red Blood Count 3.80L, Hemoglobin 11.0L, Hematocrit 35L, Mean Corpuscular Volume 92, Mean Corpuscular Hemoglobin 29, Mean Corpuscular Hemoglobin Concent 31L, Red Cell Distribution Width 14.9H, Platelet Count 183, Mean Platelet Volume 10.8H, Neutrophils (%) (Auto) 74, Lymphocytes (%) (Auto) 11L, Monocytes (%) (Auto) 14H, Eosinophils (%) (Auto) 0, Basophils (%) (Auto) 0 , Neutrophils # (Auto) 5.0, Lymphocytes # (Auto) 0.8L, Monocytes # (Auto) 1.0, Eosinophils # (Auto) 0.0, Basophils # (Auto) 0.0, Sodium Level 145, Potassium Level 4.4, Chloride Level 117H, Carbon Dioxide Level 18L, Anion Gap 10, Blood Urea Nitrogen 35H, Creatinine 1.47H, Estimat Glomerular Filtration Rate 49, BUN/ Creatinine Ratio 24, Glucose Level 244H, Calcium Level 8.6, Corrected Calcium 9.2, Phosphorus Level 2.1L, Magnesium Level 2.1, Total Bilirubin 0.4, Aspartate Amino Transf (AST/SGOT) 40H, Alanine Aminotransferase (ALT/SGPT) 49, Alkaline Phosphatase 46, B-Type Natriuretic Peptide 55.1, Total Protein 6.0L, Albumin 3.3 07/24/18 03:39: Blood Gas Puncture Site RT RAD, Blood Gas Patient Temperature 97.6, Arterial Blood pH 7.34*L, Arterial Blood Partial Pressure CO2 41, Arterial Blood Partial Pressure O2 62L, Arterial Blood HCO3 22L, Arterial Blood Total CO2 23.0, Arterial Blood Oxygen Saturation 93L, Arterial Blood Base Excess -3.3L, Vipul Test YES-POS, Blood Gas Ventilator Setting YES, Blood Gas Inspired Oxygen 35% Microbiology 07/22/18 Blood Culture - Preliminary, Resulted No growth 07/22/18 MRSA Screen - Final, Complete MRSA not isolated 07/22/18 Urine Culture - Final, Complete NO GROWTH A/P: Assessment: Acute resp failure, probably due to aspiration pneumonia Acute renal failure - improving UTI with sepsis - management per medical/ICU services Hyperkalemia secondary to acute renal failure ST with LBBB DM COPD Chronic narcotic use d/t chronic back pain Echo of 07/23/18: LVEF 65-70%, mild conc LVH, grade 1 max dysfunction Plan: * Critically ill * Continue current regimen * Monitor labs * HTN and ST - start IV BB * Plan per pulmonary services is to extubate today Physician Assessment Physician Assessment On [facility] vent. Unable to provide any history Cor: reg Lung: dec bs at bases Ext: no c/c/e A&R * As documented in our note above that I updated (italics) and as noted below * BB for bp * I spoke with his son and answered CV-related questions BRE JETER DIAPER MACHINE TENDER July 24, 2018 09:23 RAMON JOYCE MD FACP [facility] CCDS July 24, 2018 09:51
[2018-07-24] MEDS: meTOprolol 5 MG/5 ML (LOPRESSOR) VIAL IV SCH ×3 (10:18→23:32)
[2018-07-24] MEDS: VANCOMYCIN 1250 MG/NS 250 ML IVPB IV SCH ×2 (10:31)
--- NOTE | 2018-07-24 11:10 | NUR ---
Dr. Deal at bedside. Verbal order to hold precedex. Pt does have eyes open with sluggish pupillary responses but does not follow any commands or track voice. Crystal, RT also in room. Dr. Deal gave verbal order to RT to change seting to SIMV with PS 10 and PEEP 5. Will continue to monitor.
[2018-07-24 12:44] LABS: ABG BASE EXCESS -1.4 MMOL/L (-2.5-2.5); ABG OXYGEN SATURATION 83 % (94-100); ABG PCO2 45 MMHG (35-45); ABG PO2 52 MMHG (79-93); ABG TCO2 24.6 MMOL/L (21.0-31.0)
[2018-07-24 12:46] LABS: ABG PH 7.34 (7.37-7.43)
[2018-07-24 12:47] LABS: ALLENS TEST YES-POS; INSPIRED O2 50%; PATIENT TEMP 100.1; VENTILATOR YES
--- NOTE | 2018-07-24 13:00 | NUR ---
Dr. Deal in room speaking with family. Decision to pt back on previous vent settings et resedate. Plan for bronchoscopy 07/25/18 at 0600
[2018-07-24] MEDS ORDERED: fentaNYL INJECTION 100 MCG/2 ML AMP ONE (13:02)
[2018-07-24] MEDS ORDERED: fentaNYL INJECTION 100 MCG/2 ML AMP IVP ONE ×2 (13:15)
--- NOTE | 2018-07-24 16:29 | Progress Note-Hospitalist ---
Progress Note Progress Notes/Assess & Plan Date Seen 07/24/18 Time Seen by Provider: 16:25 Assessment & Plan The patient has stable vital signs. He remains on the ventilator. His acidosis has essentially cleared. His white count has fallen from 16,000 on admission to 6800 now. Lactic acid decline serially from 3.55-2.46 to the present 1.77. He is still sedated and paralyzed. His stepmother states that she was told that an attempt would be considered tomorrow relative to extubation. Physical examination: Color is good. Lungs are clear to auscultation. Breath sounds are somewhat distant. CV is regular. Abdomen is quite obese. Extremities show 1+ edema. Impression: Respiratory failure. 2.diabetes mellitus type II. 3.combined metabolic and respiratory acidosis. Plan: Continue present regimen. Hoped to attempt weaning tomorrow. Focused Exam Lactate Level 07/22/18 10:47: Lactic Acid Level 3.55*H 07/22/18 13:30: Lactic Acid Level 2.46*H 07/22/18 16:00: Lactic Acid Level 1.77 Time of Focused Exam: 10:15 KEL LAKE MD July 24, 2018 16:29
--- NOTE | 2018-07-24 17:30 | NUR ---
Spoke with pt's oldest daughter Estelabrettsupriya phone consent obtained for bronchoscopy
--- NOTE | 2018-07-24 18:10 | NUR ---
GeovanyU contacted regarding continued hypertension
[2018-07-24] MEDS ORDERED: fentaNYL INJECTION 100 MCG/2 ML AMP IV ONE (18:45)
[2018-07-24] MEDS: LABETALOL HCL 20 MG/4 ML VIAL IV PRN (18:53)
[2018-07-25] VITALS (31 sets, daily range): BP systolic 141–185; BP diastolic 68–107
[2018-07-25] MEDS: fentaNYL INJECTION 1,250 MCG in NS (IVPB) 250 ML IV SCH (00:14)
[2018-07-25] MEDS: RT-ALBUTEROL/IPRATROPIUM 3 ML (DUONEB) VIAL INH SCH ×6 (02:21→22:50)
[2018-07-25 03:24] LABS: BASOPHILS % (AUTO) 0 % (0-10); EOSINOPHILS % (AUTO) 0 % (0-10); HEMATOCRIT 36 % (40-54); HEMOGLOBIN 11.2 G/DL (13.3-17.7); LYMPHOCYTES # (AUTO) 1.3 X 10^3 (1.0-4.0); LYMPHOCYTES % (AUTO) 13 % (12-44); MEAN CORPUSCULAR HEMOGLOBIN 29 PG (25-34); MEAN CORPUSCULAR HGB CONC 31 G/DL (32-36); MEAN CORPUSCULAR VOLUME 92 FL (80-99); MEAN PLATELET VOLUME 10.6 FL (7.4-10.4); MONOCYTES # (AUTO) 0.8 X 10^3 (0.0-1.0); MONOCYTES % (AUTO) 8 % (0-12); NEUTROPHILS # (AUTO) 7.5 X 10^3 (1.8-7.8); NEUTROPHILS % (AUTO) 78 % (42-75); PLATELET COUNT 195 10^3/uL (130-400); RED CELL DISTRIBUTION WIDTH 14.6 % (10.0-14.5); WHITE BLOOD COUNT 9.5 10^3/uL (4.3-11.0)
[2018-07-25 03:25] LABS: ABG BASE EXCESS -2.4 MMOL/L (-2.5-2.5); ABG OXYGEN SATURATION 88 % (94-100); ABG PCO2 44 MMHG (35-45); ABG PO2 58 MMHG (79-93); ABG TCO2 23.9 MMOL/L (21.0-31.0)
[2018-07-25 03:26] LABS: ABG PH 7.33 (7.37-7.43); ALLENS TEST YES-POS; INSPIRED O2 40%; PATIENT TEMP 99.2; VENTILATOR YES
[2018-07-25] MEDS: PROPOFOL DRIP (ICU) 100 ML IV SCH ×4 (03:47→22:40)
[2018-07-25 03:49] LABS: ALBUMIN 3.2 GM/DL (3.2-4.5); BILIRUBIN,TOTAL 0.5 MG/DL (0.1-1.0); CALCIUM 8.8 MG/DL (8.5-10.1); CREATININE SERUM 1.31 MG/DL (0.60-1.30); MAGNESIUM 2.1 MG/DL (1.8-2.4); PHOSPHORUS 2.8 MG/DL (2.3-4.7); POTASSIUM 4.1 MMOL/L (3.6-5.0); TOTAL PROTEIN 6.3 GM/DL (6.4-8.2)
[2018-07-25] MEDS: POTASSIUM CL 10MEQ/50ML IVPB 50 ML IV SCH ×4 (04:39→08:55)
[2018-07-25] MEDS: KCL 20 MEQ TAB (K-DUR) PO SCH (04:40)
[2018-07-25] MEDS: MAGNESIUM 1 GM/100 ML IVPB 100 ML IV SCH (04:40)
[2018-07-25] MEDS: meTOprolol 5 MG/5 ML (LOPRESSOR) VIAL IV SCH ×2 (05:45→11:10)
[2018-07-25] MEDS: PIPERACILLIN/TAZOBACTAM (BULK) 4.5 GM in NS (IVPB) 100 ML IV SCH ×3 (05:45→23:23)
[2018-07-25] MEDS: inSUlin ASPART (NovoLOG) 1 UNIT/0.01 ML (CHARGE PER UNIT) SC SCH ×3 (05:45→18:09)
[2018-07-25] MEDS ORDERED: fentaNYL INJECTION 100 MCG/2 ML AMP ONE (05:55)
[2018-07-25] MEDS ORDERED: MIDAZOLAM 5 MG/5 ML (VERSED) VIAL ONE (05:56)
[2018-07-25] MEDS ORDERED: MIDAZOLAM 2 MG/2 ML (VERSED) VIAL IVP ONE (06:10)
[2018-07-25] MEDS ORDERED: fentaNYL INJECTION 100 MCG/2 ML AMP IVP ONE (06:10)
[2018-07-25] MEDS ORDERED: MIDAZOLAM 2 MG/2 ML (VERSED) VIAL IM ONE (06:10)
[2018-07-25] MEDS: D5W 1000 ML IV SOLUTION 1,000 ML IV SCH (06:35)
--- NOTE | 2018-07-25 06:44 | Pulmonary Procedures ---
Pulmonary Procedures Date of Procedure Date of Service: July 25, 2018 Bronch Bronchoscopy with RML bronchoalveolar lavage (BAL), transbronchial washes. Preop DX PNA ,aspiration PNA Postop DX: same No endobronchial mass Complications: none After informed consent obtained and formal time out pt was sedated using Fentanyl and Versed. Bronchoscope was advanced through the nare and vocal cords. 1% lidocaine was used to anesthetize vocal cords, epiglottis, antoinette, and left/right main stem bronchus. An anatomical tour was undertaken down to the segmental bronchi bilaterally. No endobronchial lesions noted. From the RML bronchoalveolar lavage (BAL), transbronchial washes. were obtained. Pt tolerated procedure well. No complications noted. Stat CXR is pending. MARCI LOPEZ DO July 25, 2018 06:44
--- NOTE | 2018-07-25 06:55 | Diagnostic Imaging Report ---
Indication: Septic shock. Portable chest 3:21 AM There is an ET tube projecting over the trachea. NG tube enters the stomach. Right jugular central line tip projects over the SVC. There is consolidation in the right lower lung that is increased from the previous day. There is some left basilar atelectasis. Impression: Increasing density right lower chest suspicious for pneumonia. Dictated by: Dictated on workstation # [id number]
[2018-07-25] MEDS: HYDROCORTISONE 100 MG/2 ML (Solu-CORTEF) VIAL IV SCH (07:41)
[2018-07-25] MEDS: PANTOPRAZOLE 40 MG (PROTONIX) VIAL IV SCH (07:41)
[2018-07-25] MEDS: ENOXAPARIN 40 MG/0.4 ML (LOVENOX) SYR SC SCH (07:41)
--- NOTE | 2018-07-25 08:39 | Pulmonary Progress Note ---
Subjective Time Seen by a Provider: 08:40 Subjective/Events-last exam Sedated on vent. Sepsis Event Evaluation Height, Weight, BMI Height: 6'2.00" Weight: 286lbs. 5.0oz. 129.308201ww; 36.2 BMI Method:Stated Focused Exam Lactate Level 07/22/18 10:47: Lactic Acid Level 3.55*H 07/22/18 13:30: Lactic Acid Level 2.46*H 07/22/18 16:00: Lactic Acid Level 1.77 Time of Focused Exam: 10:15 Exam Exam Vital Signs Date Time Temp Pulse Resp B/P (MAP) Pulse Ox O2 Delivery O2 Flow Rate FiO2 07/25/18 08:00 87 30 165/94 (117) 97 Mechanical Ventilator 40.00 07/25/18 07:22 87 07/25/18 07:00 86 22 155/85 (108) 94 Mechanical Ventilator 40.00 07/25/18 06:40 82 22 92 40 07/25/18 06:00 78 22 169/86 (113) 97 Mechanical Ventilator 40.00 07/25/18 05:00 84 21 168/88 (114) 96 Mechanical Ventilator 40.00 07/25/18 04:00 88 21 169/87 (114) 95 Mechanical Ventilator 40.00 07/25/18 04:00 99.2 07/25/18 04:00 93 Mechanical Ventilator 40 07/25/18 03:47 161/83 07/25/18 03:00 90 18 161/83 (109) 95 Mechanical Ventilator 40.00 07/25/18 02:22 87 23 94 40 07/25/18 02:05 99.7 07/25/18 02:00 86 24 166/88 (114) 96 Mechanical Ventilator 40.00 07/25/18 01:00 85 07/25/18 01:00 85 22 164/86 (112) 92 Mechanical Ventilator 40.00 07/25/18 00:00 93 Mechanical Ventilator 40 07/25/18 00:00 83 23 164/89 (114) 94 Mechanical Ventilator 40.00 07/24/18 23:38 99.9 07/24/18 23:32 170/86 07/24/18 23:00 90 21 170/86 (114) 93 Mechanical Ventilator 40.00 07/24/18 22:03 87 22 94 40 07/24/18 22:00 100.5 07/24/18 22:00 86 21 171/89 (116) 95 Mechanical Ventilator 40.00 07/24/18 21:00 89 19 172/87 (115) 95 Mechanical Ventilator 40.00 07/24/18 20:24 90 23 94 40 07/24/18 20:23 174/97 07/24/18 20:00 91 18 174/97 (122) 94 Mechanical Ventilator 40.00 07/24/18 20:00 94 Mechanical Ventilator 40 07/24/18 19:51 100.2 07/24/18 19:00 90 19 204/101 (135) 95 Mechanical Ventilator 40.00 07/24/18 19:00 89 07/24/18 18:33 90 22 94 40 07/24/18 18:00 89 21 201/98 (132) 94 Mechanical Ventilator 40.00 07/24/18 17:07 189/96 07/24/18 17:00 93 22 189/96 (127) 92 Mechanical Ventilator 40.00 07/24/18 16:34 Mechanical Ventilator 40.00 07/24/18 16:29 96 23 94 50 07/24/18 16:00 93 Mechanical Ventilator 50 07/24/18 16:00 98.9 07/24/18 16:00 98 21 190/89 (122) 93 Mechanical Ventilator 50.00 07/24/18 15:13 91 22 93 50 07/24/18 15:00 92 21 187/92 (123) 93 Mechanical Ventilator 50.00 07/24/18 14:00 96 21 183/84 (117) 92 Mechanical Ventilator 50.00 07/24/18 13:11 105 07/24/18 13:02 100 23 93 50 07/24/18 13:00 118 32 206/99 (134) 92 Mechanical Ventilator 50.00 07/24/18 12:00 90 Mechanical Ventilator 50 07/24/18 12:00 107 26 185/92 (123) 91 Mechanical Ventilator 50.00 07/24/18 11:10 105 26 90 50 07/24/18 11:00 98 22 185/95 (125) 91 Mechanical Ventilator 50.00 07/24/18 10:52 103 26 92 50 07/24/18 10:00 113 26 195/101 (132) 88 Mechanical Ventilator 50.00 07/24/18 09:49 Mechanical Ventilator 50.00 07/24/18 09:15 107 30 92 40 07/24/18 09:00 108 20 186/93 (124) 92 Mechanical Ventilator 35.00 I & O 07/25/18 07:00 Intake Total 872.5 ml Output Total 3425 ml Balance -2552.5 ml Height & Weight Height: 6'2.00" Weight: 286lbs. 5.0oz. 129.002355ha; 36.2 BMI Method:Stated General Appearance: Chronically ill, Obese, Other (sedated on vent ) HEENT: Pharynx Normal, Moist Mucous Membranes (mildly dry with ibarra thick mucus the back of the throat); No Tonsillar Exudate, No Tonsillar Enlargement Respiratory: Normal Breath Sounds, No Accessory Muscle Use Cardiovascular: Regular Rate, Rhythm, No Edema, No Murmur, Normal Peripheral Pulses Capillary Refill: Less Than 3 Seconds Peripheral Pulses: 2+ Radial Pulses (R), 2+ Radial Pulses (L) Gastrointestinal: soft, distended (mild), hernia (small umbilical) Extremity: Normal Capillary Refill, Normal Inspection Neurologic/Psychiatric: Other (GCS 6 E2V1M3) Skin: Normal Color, Warm/Dry Lymphatic: No Adenopathy Results Lab Laboratory Tests 07/24/18 03:05 07/25/18 03:15 Assessment/Plan Assessment/Plan Acute respiratory failure-- with aspiration pneumonia- present at admission -Pt has a lot of airway secretions. Will do bronchoscopy today -Will attempt to wean vent again today. pt failed weaning yesterday -CXR appears worse -BNP is elevated - will give 60mg of Lasix IV X 1 -Influ is neg -MRSA swab is negative -Continue ventilator care and protocols -Will attempt vent weaning today. D/C sedation -ABG - reviewed -Start SVNs Duoneb Q4 Sepsis - - Busby cultures pending - Zosyn -MRSA swab is negative -Busby cultures pending -CT of abd/pelvis is neg -echocardiogram -- results - normal EF and no pericardial effusion - per cardiac technician hypotension - resolved Acute MS changes -- possibly from home narcotics/benzos LBBB - per EKG -Consult cardiology - troponins - neg x 2 -Echocardiogram - normal EF and no pericardial effusion Elevated AST -Abd CT scan was negative -US abd reviewed Acute on chronic renal failure with hyperkalemia -IVF -monitor close Metabolic lactic acidosis - secondary to sepsis r/o abdominal sepsis DM -SSI - MARCI Lopez DO July 25, 2018 08:39
[2018-07-25] MEDS ORDERED: FUROSEMIDE 40 MG/4 ML INJ (LASIX) IVP NR (08:45)
--- NOTE | 2018-07-25 09:17 | Progress Note-Cardiology ---
Cardiology SOAP Progress Note Subjective: Intubated and sedated Objective: I&O/Vital Signs 07/25/18 07/25/18 07/25/18 07/25/18 06:40 07:00 07:22 08:00 Temp 98.9 Pulse 82 86 87 Resp B/P (MAP) 155/85 (108) Pulse Ox 92 94 O2 Delivery Mechanical Ventilator O2 Flow Rate 40.00 FiO2 40 07/25/18 07/25/18 07/25/18 07/25/18 08:00 08:00 08:30 09:00 Pulse 87 83 88 Resp 30 28 B/P (MAP) 165/94 (117) 171/85 (113) Pulse Ox 99 97 95 97 O2 Delivery Mechanical Ventilator Mechanical Ventilator Mechanical Ventilator O2 Flow Rate 40.00 40.00 FiO2 40 40 07/25/18 07/25/18 07/25/18 07/25/18 10:00 10:16 11:00 11:59 Pulse 108 75 99 Resp B/P (MAP) 183/100 (127) 185/107 (133) Pulse Ox 99 97 99 99 O2 Delivery Mechanical Ventilator Mechanical Ventilator Mechanical Ventilator O2 Flow Rate 40.00 40.00 FiO2 40 40 07/25/18 07/25/18 07/25/18 07/25/18 12:00 12:00 13:00 13:15 Temp 99.4 Pulse 107 104 102 Resp 11 B/P (MAP) 181/105 (130) 166/85 (112) Pulse Ox 95 97 O2 Delivery Mechanical Ventilator Mechanical Ventilator O2 Flow Rate 40.00 40.00 07/25/18 07/25/18 07/25/18 07/25/18 14:00 14:12 15:00 15:11 Temp 99.0 Pulse 110 112 109 Resp 12 B/P (MAP) 177/88 (117) 172/91 (118) Pulse Ox 98 98 97 O2 Delivery Mechanical Ventilator Mechanical Ventilator O2 Flow Rate 40.00 40.00 FiO2 40 07/25/18 07/25/18 07/25/18 07/25/18 15:13 16:00 16:07 17:00 Temp 99.0 99.1 Pulse 96 91 Resp B/P (MAP) 145/68 (93) 144/70 (94) Pulse Ox 93 95 O2 Delivery Mechanical Ventilator Mechanical Ventilator O2 Flow Rate 40.00 40.00 07/25/18 18:00 Pulse 89 Resp 23 B/P (MAP) 141/70 (93) Pulse Ox 96 O2 Delivery Mechanical Ventilator O2 Flow Rate 40.00 07/25/18 00:00 Intake Total 0 ml Output Total 1575 ml Balance -1575 ml Weight (Pounds): 286 Weight (Ounces): 5.0 Weight (Calculated Kilograms): 129.296242 Constitutional: other (intubated and sedated) Respiratory: chest expansion is symmetric, chest is bilaterally symmetric, other (scattered wheezes; coarse lower lobes; fair air entry) Cardiovascular: regular rate-rhythm; No JVD; S1 and S2 Gastrointestional: soft, round, audible bowel sounds Genital/Rectal: other (urinary catheter to DD with clear, yellow urine) Extremities: other (mild pedal edema bilat) Neurologic/Psychiatric: other (intubated and sedated; appears to move extremities) Skin: normal color, warm/dry; No rash, No ulcerations Results/Procedures: Labs Laboratory Tests 07/24/18 18:39: Glucometer 164H 07/24/18 20:12: Glucometer 174H 07/24/18 23:26: Glucometer 177H 07/25/18 03:15: White Blood Count 9.5, Red Blood Count 3.88L, Hemoglobin 11.2L, Hematocrit 36L, Mean Corpuscular Volume 92, Mean Corpuscular Hemoglobin 29, Mean Corpuscular Hemoglobin Concent 31L, Red Cell Distribution Width 14.6H, Platelet Count 195, Mean Platelet Volume 10.6H, Neutrophils (%) (Auto) 78H, Lymphocytes (%) (Auto) 13, Monocytes (%) (Auto) 8, Eosinophils (%) (Auto) 0, Basophils (%) (Auto) 0, Neutrophils # (Auto) 7.5, Lymphocytes # (Auto) 1.3, Monocytes # (Auto) 0.8, Eosinophils # (Auto) 0.0, Basophils # (Auto) 0.0, Blood Gas Puncture Site RT RAD , Blood Gas Patient Temperature 99.2, Arterial Blood pH 7.33*L, Arterial Blood Partial Pressure CO2 44, Arterial Blood Partial Pressure O2 58L, Arterial Blood HCO3 23, Arterial Blood Total CO2 23.9, Arterial Blood Oxygen Saturation 88L, Arterial Blood Base Excess -2.4, Vipul Test YES-POS, Blood Gas Ventilator Setting YES, Blood Gas Inspired Oxygen 40%, Sodium Level 151H, Potassium Level 4.1, Chloride Level 119H, Carbon Dioxide Level 20L, Anion Gap 12, Blood Urea Nitrogen 33H, Creatinine 1.31H, Estimat Glomerular Filtration Rate 55, BUN/ Creatinine Ratio 25, Glucose Level 220H, Calcium Level 8.8, Corrected Calcium 9.4, Phosphorus Level 2.8, Magnesium Level 2.1, Total Bilirubin 0.5, Aspartate Amino Transf (AST/SGOT) 24, Alanine Aminotransferase (ALT/SGPT) 39, Alkaline Phosphatase 47, B-Type Natriuretic Peptide 768.4H, Total Protein 6.3L, Albumin 3.2 07/25/18 12:02: Glucometer 150H 07/25/18 14:28: Blood Gas Puncture Site RR, Blood Gas Patient Temperature 100.4, Arterial Blood pH 7.53H, Arterial Blood Partial Pressure CO2 30L, Arterial Blood Partial Pressure O2 106H, Arterial Blood HCO3 25, Arterial Blood Total CO2 25.7, Arterial Blood Oxygen Saturation 99, Arterial Blood Base Excess 2.2, Vipul Test YES-POS, Blood Gas Ventilator Setting YES, Blood Gas Inspired Oxygen 40 07/25/18 17:56: Glucometer 132H Microbiology 07/22/18 Blood Culture - Preliminary, Resulted Corynebacterium species See Comments 07/25/18 Gram Stain - Final, Resulted 07/25/18 Bronchial Culture, Resulted Pending 07/25/18 Fungal Culture 1, Resulted Pending 07/22/18 Urine Culture - Final, Complete NO GROWTH Laboratory Tests 07/24/18 03:05 07/25/18 03:15 Procedures NAME: VASQUEZ [facility] REC#: [id number] PT STATUS: ADM IN : 1955 PHYSICIAN: MARCI LOPEZ DO ADMIT DATE: 07/22/18/ICU Signed Date of Exam: 07/25/18 CHEST 1 VIEW, AP/PA ONLY Indication: Septic shock. Portable chest 3:21 AM There is an ET tube projecting over the trachea. NG tube enters the stomach. Right jugular central line tip projects over the SVC. There is consolidation in the right lower lung that is increased from the previous day. There is some left basilar atelectasis. Impression: Increasing density right lower chest suspicious for pneumonia. Dictated by: Dictated on workstation # [id number] Dict: 07/25/18625 Trans: 07/25/18810 Interpreted by: MANJINDER PAULINO MD Electronically signed by: MANJINDER PAULINO MD 07/25/18810 A/P: Assessment: Acute resp failure, probably due to aspiration pneumonia Acute renal failure - improving UTI with sepsis - management per medical/ICU services Hyperkalemia secondary to acute renal failure - resolved ST with LBBB DM COPD Chronic narcotic use d/t chronic back pain Echo of 07/23/18: LVEF 65-70%, mild conc LVH, grade 1 max dysfunction Plan: * Critically ill * Continue current regimen * Monitor labs * HTN and ST - continue IV BB * HTN not well controlled - labetalol added * Failed extubation yesterday Physician Assessment Physician Assessment Intubated and on mech vent at time of my exam Lungs: fair air entry Cor: reg Ext: no c/c. Mild leg edema A&R * As documented in our note above that I updated (italics) and as noted below * BB for bp * Monitor and correct labs BRE JETER FIBERGLASS INSULATION INSTALLER July 25, 2018 09:17 RAMON JOYCE MD FACP [facility] CCDS July 25, 2018 18:25
[2018-07-25] MEDS: LABETALOL HCL 20 MG/4 ML VIAL IV PRN (10:12)
--- NOTE | 2018-07-25 10:15 | NUR ---
Dr. Deal contacted for vent settings and plan. Dr. Deal stated to change pt to SIMV with PS 15 and RR 10. Decrease RR by 2 every hour until reach RR4. Draw ABG 30min after RR4 achieved. Prabhu, RT notified et changes made.
--- NOTE | 2018-07-25 10:20 | Progress Note-Hospitalist ---
Subjective HPI/CC On Admission Date Seen by Provider: July 25, 2018 Time Seen by Provider: 09:45 The patient is a 62-year-old white male who was brought to the emergency room this morning in an unresponsive state. Subjective/Events-last exam Patient still intubated Preparing for extubation just to prepare but will not be extubated today Sodium level 151 so D5 IV fluid will be initiated Patient may have some sort of a nontoxic brain injury Creatinine 1.3 Checked meds and labs Unsure of the recoverability of this patient Review of Systems Pulmonary: Dyspnea Focused Exam Lactate Level 07/22/18 10:47: Lactic Acid Level 3.55*H 07/22/18 13:30: Lactic Acid Level 2.46*H 07/22/18 16:00: Lactic Acid Level 1.77 Time of Focused Exam: 10:15 Objective Exam Vital Signs Vital Signs Date Time Temp Pulse Resp B/P (MAP) Pulse Ox O2 Delivery O2 Flow Rate FiO2 07/25/18 10:16 75 20 97 40 07/25/18 08:00 165/94 (117) Mechanical Ventilator 40.00 07/25/18 08:00 98.9 Capillary Refill : Less Than 3 Seconds General Appearance: Chronically ill, Obese, Other (on vent with mild anxiousness) HEENT: Pharynx Normal, Moist Mucous Membranes (mildly dry with ibarra thick mucus the back of the throat); No Tonsillar Exudate, No Tonsillar Enlargement Respiratory: Normal Breath Sounds, No Accessory Muscle Use Cardiovascular: Regular Rate, Rhythm, No Edema, No Murmur, Normal Peripheral Pulses Gastrointestinal: Normal Bowel Sounds, No Organomegaly, Non Tender, Soft Extremity: Normal Capillary Refill, Normal Inspection Neurologic/Psychiatric: Other (GCS 6 E2V1M3) Skin: Normal Color, Warm/Dry Lymphatic: No Adenopathy Results/Procedures Lab Laboratory Tests 07/25/18 03:15 Patient resulted labs reviewed. Assessment/Plan Assessment and Plan Assess & Plan/Chief Complaint Assessment: Acute respiratory failure Aspiration pneumonia Septic shock Sinus tachycardia Altered mental status on admission LBBB Elevated AST Acute on chronic renal failure Metabolic lactic acidosis DM Plan: Maintain intubation Monitor labs D5 IV fluid Diagnosis/Problems Diagnosis/Problems (1) Acute respiratory failure with hypoxemia Status: Acute (2) Acute kidney injury Status: Acute (3) Septic shock Status: Acute (4) COPD (chronic obstructive pulmonary disease) Status: Chronic Qualifiers: COPD type: unspecified COPD Qualified Codes: J44.9 - Chronic obstructive pulmonary disease, unspecified (5) Left bundle branch block (LBBB) determined by electrocardiography Status: Chronic (6) Chronic back pain Status: Chronic Qualifiers: Back pain location: back pain in unspecified location Back pain laterality : unspecified Qualified Codes: M54.9 - Dorsalgia, unspecified; G89.29 - Other chronic pain (7) Essential (primary) hypertension Status: Chronic (8) Insulin dependent diabetes mellitus Status: Chronic Clinical Quality Measures DVT/VTE Risk/Contraindication: Risk Factor Score Per Nursin RFS Level Per Nursing on Admit: 4+=Very High ANGÉLICA DAVIS DO July 25, 2018 10:20
--- NOTE | 2018-07-25 11:15 | NUR ---
Pastoral care visit, pt continues to be on a ventilator with no family seen will monitor.
--- NOTE | 2018-07-25 12:04 | NUR ---
Dr. Deal called. Updated on pt status including continued HTN. Dr. Deal stated he will be here to see pt around 1330.
--- NOTE | 2018-07-25 14:29 | NUR ---
CONTACTED DR LOPEZ ABOUT LABETOLOL SHORTAGE AND ABILITY TO CHANGE THERAPY. RECEIVED ORDERS TO D/C LABETOLOL, START METOPROLOL IR 25MG OG BID, LISINOPRIL 2.5 MG OG DAILY, AND HYDRALAZINE 10MG IV Q 6 HOURS, PRN BP > 160 mmHg. Addendum: 07/25/18 at 1431 by GIA JACKSON [facility] ALSO D/C HYDROCORTISONE IV
[2018-07-25 14:35] LABS: ABG BASE EXCESS 2.2 MMOL/L (-2.5-2.5); ABG OXYGEN SATURATION 99 % (94-100); ABG PCO2 30 MMHG (35-45); ABG PH 7.53 (7.37-7.43); ABG PO2 106 MMHG (79-93); ABG TCO2 25.7 MMOL/L (21.0-31.0); ALLENS TEST YES-POS
[2018-07-25 14:36] LABS: INSPIRED O2 40; PATIENT TEMP 100.4; VENTILATOR YES
--- NOTE | 2018-07-25 14:40 | NUR ---
ABG DRAWN AT THIS TIME. DYLON RN AT BEDSIDE WITH THIS RN. PT. MOVING EXTREMITIES. ORAL CARE ET SUCTIONING COMPLETED
[2018-07-25] MEDS: lisINopril 5 MG (PRINIVIL) TABLET PO SCH (15:20)
[2018-07-25] MEDS ORDERED: DEXMEDETOMIDINE INJECTION 200 MCG in NS (IVPB) 50 ML IV SCH (17:30)
[2018-07-25] MEDS ORDERED: DEXMEDETOMIDINE INJECTION 1,000 MCG in NS (IVPB) 250 ML IV SCH (18:30)
[2018-07-25] MEDS: meTOprolol TARTRATE 25 MG (LOPRESSOR) TABLET GT SCH (20:20)
[2018-07-26] VITALS (27 sets, daily range): BP systolic 140–192; BP diastolic 67–98
[2018-07-26] MEDS: D5W 1000 ML IV SOLUTION 1,000 ML IV SCH ×2 (01:56→22:29)
[2018-07-26] MEDS: PROPOFOL DRIP (ICU) 100 ML IV SCH ×2 (01:56→06:03)
[2018-07-26] MEDS: RT-ALBUTEROL/IPRATROPIUM 3 ML (DUONEB) VIAL INH SCH ×6 (02:30→22:42)
[2018-07-26 03:38] LABS: ABG BASE EXCESS 2.7 MMOL/L (-2.5-2.5); ABG OXYGEN SATURATION 95 % (94-100); ABG PCO2 46 MMHG (35-45); ABG PH 7.39 (7.37-7.43); ABG PO2 77 MMHG (79-93); ABG TCO2 28.8 MMOL/L (21.0-31.0); BASOPHILS % (AUTO) 0 % (0-10); EOSINOPHILS # (AUTO) 0.3 10^3/uL (0.0-0.3); EOSINOPHILS % (AUTO) 3 % (0-10); HEMATOCRIT 35 % (40-54); HEMOGLOBIN 10.9 G/DL (13.3-17.7); LYMPHOCYTES % (AUTO) 18 % (12-44); MEAN CORPUSCULAR HEMOGLOBIN 29 PG (25-34); MEAN CORPUSCULAR HGB CONC 32 G/DL (32-36); MEAN CORPUSCULAR VOLUME 92 FL (80-99); MEAN PLATELET VOLUME 10.5 FL (7.4-10.4); MONOCYTES # (AUTO) 1.1 X 10^3 (0.0-1.0); MONOCYTES % (AUTO) 10 % (0-12); NEUTROPHILS # (AUTO) 7.4 X 10^3 (1.8-7.8); NEUTROPHILS % (AUTO) 69 % (42-75); PLATELET COUNT 200 10^3/uL (130-400); RED CELL DISTRIBUTION WIDTH 14.6 % (10.0-14.5); WHITE BLOOD COUNT 10.7 10^3/uL (4.3-11.0)
[2018-07-26 03:45] LABS: ALLENS TEST YES-POS; INSPIRED O2 30%; PATIENT TEMP 97.2; VENTILATOR YES
[2018-07-26 03:59] LABS: ALANINE AMINOTRANSFERASE 31 U/L (0-55); ALBUMIN 3.2 GM/DL (3.2-4.5); ALKALINE PHOSPHATASE 47 U/L (40-136); BILIRUBIN,TOTAL 0.6 MG/DL (0.1-1.0); BUN/CREATININE RATIO 26; CALCIUM 8.9 MG/DL (8.5-10.1); CARBON DIOXIDE 24 MMOL/L (21-32); CHLORIDE 114 MMOL/L (98-107); GFR ESTIMATED > 60; GLUCOSE 145 MG/DL (70-105); MAGNESIUM 2.1 MG/DL (1.8-2.4); PHOSPHORUS 2.6 MG/DL (2.3-4.7); POTASSIUM 3.3 MMOL/L (3.6-5.0); SODIUM 150 MMOL/L (135-145)
[2018-07-26] MEDS: POTASSIUM CL 10MEQ/50ML IVPB 50 ML IV SCH ×9 (06:02→12:01)
[2018-07-26] MEDS: MAGNESIUM 1 GM/100 ML IVPB 100 ML IV SCH (06:02)
[2018-07-26] MEDS: inSUlin ASPART (NovoLOG) 1 UNIT/0.01 ML (CHARGE PER UNIT) SC SCH ×4 (06:02→17:58)
[2018-07-26] MEDS: KCL 20 MEQ TAB (K-DUR) PO SCH (06:02)
--- NOTE | 2018-07-26 06:12 | Pulmonary Progress Note ---
Subjective Time Seen by a Provider: 06:25 Subjective/Events-last exam Pt sedated on Vent. Sepsis Event Evaluation Height, Weight, BMI Height: 6'2.00" Weight: 275lbs. 0.0oz. 124.534747hl; 36.2 BMI Method:Stated Focused Exam Time of Focused Exam: 10:15 Exam Exam Vital Signs Date Time Temp Pulse Resp B/P (MAP) Pulse Ox O2 Delivery O2 Flow Rate FiO2 07/26/18 06:03 157/75 07/26/18 05:00 94 24 163/81 (108) 94 Mechanical Ventilator 30.00 07/26/18 04:00 94 Mechanical Ventilator 30 07/26/18 04:00 92 24 165/81 (109) 93 Mechanical Ventilator 30.00 07/26/18 03:00 90 24 159/75 (103) 93 Mechanical Ventilator 30.00 07/26/18 02:30 87 25 93 30 07/26/18 02:00 84 23 145/71 (95) 94 Mechanical Ventilator 30.00 07/26/18 01:56 160/80 07/26/18 01:00 87 12 158/76 (103) 94 Mechanical Ventilator 30.00 07/26/18 01:00 89 07/26/18 00:41 Mechanical Ventilator 30.00 07/26/18 00:20 87 25 96 30 07/26/18 00:00 99 Mechanical Ventilator 35 07/26/18 00:00 80 22 140/72 (94) 95 Mechanical Ventilator 35.00 07/25/18 23:59 97.7 07/25/18 23:00 85 24 154/77 (102) 95 Mechanical Ventilator 35.00 07/25/18 22:50 87 22 94 35 07/25/18 22:40 88 96 Mechanical Ventilator 07/25/18 22:00 89 21 148/74 (98) 96 Mechanical Ventilator 35.00 07/25/18 21:00 93 23 152/71 (98) 95 Mechanical Ventilator 35.00 07/25/18 20:30 Mechanical Ventilator 35.00 07/25/18 20:20 92 24 96 35 07/25/18 20:00 98.0 07/25/18 20:00 99 Mechanical Ventilator 35 07/25/18 20:00 92 22 147/72 (97) 96 Mechanical Ventilator 35.00 07/25/18 19:18 164/86 07/25/18 19:00 89 18 143/73 (96) 96 Mechanical Ventilator 35.00 07/25/18 19:00 85 07/25/18 18:55 89 23 97 40 07/25/18 18:00 89 23 141/70 (93) 96 Mechanical Ventilator 40.00 07/25/18 17:00 91 22 144/70 (94) 95 Mechanical Ventilator 40.00 07/25/18 16:07 99.1 07/25/18 16:00 99 Mechanical Ventilator 40 07/25/18 16:00 96 21 145/68 (93) 93 Mechanical Ventilator 40.00 07/25/18 15:13 99.0 07/25/18 15:11 99.0 07/25/18 15:00 109 12 172/91 (118) 97 Mechanical Ventilator 40.00 07/25/18 14:12 112 19 98 40 07/25/18 14:00 110 20 177/88 (117) 98 Mechanical Ventilator 40.00 07/25/18 13:15 102 07/25/18 13:00 104 11 166/85 (112) 97 Mechanical Ventilator 40.00 07/25/18 12:00 107 17 181/105 (130) 95 Mechanical Ventilator 40.00 07/25/18 12:00 99.4 07/25/18 11:59 99 Mechanical Ventilator 40 07/25/18 11:00 99 21 185/107 (133) 99 Mechanical Ventilator 40.00 07/25/18 10:16 75 20 97 40 07/25/18 10:00 108 22 183/100 (127) 99 Mechanical Ventilator 40.00 07/25/18 09:00 88 28 171/85 (113) 97 Mechanical Ventilator 40.00 07/25/18 08:30 83 22 95 40 07/25/18 08:00 87 30 165/94 (117) 97 Mechanical Ventilator 40.00 07/25/18 08:00 99 Mechanical Ventilator 40 07/25/18 08:00 98.9 07/25/18 07:22 87 07/25/18 07:00 86 22 155/85 (108) 94 Mechanical Ventilator 40.00 07/25/18 06:40 82 22 92 40 I & O 07/26/18 07:00 Intake Total 1300 ml Output Total 7515 ml Balance -6215 ml Height & Weight Height: 6'2.00" Weight: 275lbs. 0.0oz. 124.199793cc; 36.2 BMI Method:Stated General Appearance: Chronically ill, Obese, Other (on vent with mild anxiousness) HEENT: Pharynx Normal, Moist Mucous Membranes (mildly dry with ibarra thick mucus the back of the throat); No Tonsillar Exudate, No Tonsillar Enlargement Respiratory: Normal Breath Sounds, No Accessory Muscle Use Cardiovascular: Regular Rate, Rhythm, No Edema, No Murmur, Normal Peripheral Pulses Capillary Refill: Less Than 3 Seconds Peripheral Pulses: 2+ Radial Pulses (R), 2+ Radial Pulses (L) Gastrointestinal: soft, distended (mild), hernia (small umbilical) Extremity: Normal Capillary Refill, Normal Inspection Neurologic/Psychiatric: Other (GCS 6 E2V1M3) Skin: Normal Color, Warm/Dry Lymphatic: No Adenopathy Results Lab Laboratory Tests 07/25/18 03:15 07/26/18 03:30 Assessment/Plan Assessment/Plan Acute respiratory failure-- with aspiration pneumonia- present at admission -Pt has a lot of airway secretions. s/p bronchoscopy - await cultures -Will attempt to wean vent again today. pt failed weaning yesterday -CXR appears worse -Give 2mg of bumex x 1 -Lasix 40mg IV daily -Add Solumedrol 125mg IV X 1 then 40 IV Q 6 -Influ is neg -MRSA swab is negative -Continue ventilator care and protocols -Will attempt vent weaning today. D/C sedation -ABG - reviewed -Start SVNs Duoneb Q4 Sepsis - - Busby cultures pending - Zosyn switch to Merrem secondary to persistent airway secretions and overall status. -Await bronchoscopy C&S -MRSA swab is negative -Busby cultures pending -CT of abd/pelvis is neg -echocardiogram -- results - normal EF and no pericardial effusion - per radiologic tech Acute MS changes -- possibly from home narcotics/benzos LBBB - per EKG -Consult cardiology - troponins - neg x 2 -Echocardiogram - normal EF and no pericardial effusion Elevated AST -Abd CT scan was negative -US abd reviewed Acute on chronic renal failure with hyperkalemia -IVF -monitor close Metabolic lactic acidosis - secondary to sepsis r/o abdominal sepsis DM -SSI - MARCI Lopez DO July 26, 2018 06:12
[2018-07-26] MEDS ORDERED: BUMETANIDE 1 MG/4 ML (BUMEX) VIAL IV SCH (06:15)
[2018-07-26] MEDS: PIPERACILLIN/TAZOBACTAM (BULK) 4.5 GM in NS (IVPB) 100 ML IV SCH (06:20)
[2018-07-26] MEDS ORDERED: methylPREDNISolone 125 MG (Solu-MEDROL) VIAL IVP ONE (06:30)
[2018-07-26] MEDS ORDERED: methylPREDNISolone 125 MG (Solu-MEDROL) VIAL ONE (06:38)
[2018-07-26] MEDS ORDERED: MEROPENEM 500 MG VIAL (MERREM) IV ONE (06:38)
[2018-07-26] MEDS ORDERED: WATER (STERILE) FOR INJECTION 10 ML ONE (06:38)
[2018-07-26] MEDS: MEROPENEM 500 MG in WATER (STERILE) FOR INJECTION 10 ML IV SCH ×3 (06:44→16:51)
[2018-07-26] MEDS: ENOXAPARIN 40 MG/0.4 ML (LOVENOX) SYR SC SCH (07:32)
[2018-07-26] MEDS: PANTOPRAZOLE 40 MG (PROTONIX) VIAL IV SCH (07:36)
[2018-07-26] MEDS: meTOprolol TARTRATE 25 MG (LOPRESSOR) TABLET GT SCH ×2 (07:36→21:04)
[2018-07-26] MEDS: amLODIPine 10 MG (NORVASC) TAB PO SCH (07:37)
[2018-07-26] MEDS: lisINopril 5 MG (PRINIVIL) TABLET PO SCH (07:37)
[2018-07-26] MEDS: hydrALAZINE (APESOLINE) 20 MG/ML VIAL IV PRN ×2 (07:38→12:58)
[2018-07-26 08:44] LABS: ABG BASE EXCESS 3.1 MMOL/L (-2.5-2.5); ABG OXYGEN SATURATION 98 % (94-100); ABG PCO2 32 MMHG (35-45); ABG PH 7.52 (7.37-7.43); ABG PO2 100 MMHG (79-93); ABG TCO2 26.8 MMOL/L (21.0-31.0); ALLENS TEST YES-POS; INSPIRED O2 30%; PATIENT TEMP 99.7; VENTILATOR YES
--- NOTE | 2018-07-26 08:59 | Progress Note-Cardiology ---
Cardiology SOAP Progress Note Subjective: Intubated and sedated Objective: I&O/Vital Signs 07/26/18 07/26/18 07/26/18 07/26/18 02:30 03:00 04:00 04:00 Pulse 87 90 92 Resp 25 24 24 B/P (MAP) 159/75 (103) 165/81 (109) Pulse Ox 93 93 93 94 O2 Delivery Mechanical Ventilator Mechanical Ventilator Mechanical Ventilator O2 Flow Rate 30.00 30.00 FiO2 30 30 07/26/18 07/26/18 07/26/18 07/26/18 05:00 06:00 06:03 06:23 Pulse 94 91 91 Resp 24 25 25 B/P (MAP) 163/81 (108) 157/75 (102) 157/75 Pulse Ox 94 94 94 O2 Delivery Mechanical Ventilator Mechanical Ventilator O2 Flow Rate 30.00 30.00 FiO2 30 07/26/18 07/26/18 07/26/18 07/26/18 07:00 07:17 08:00 08:00 Temp 99.7 Pulse 101 98 103 Resp 16 12 B/P (MAP) 181/90 (120) 169/90 (116) Pulse Ox 96 95 94 O2 Delivery Mechanical Ventilator Mechanical Ventilator Mechanical Ventilator O2 Flow Rate 30.00 30.00 FiO2 30 07/26/18 07/26/18 07/26/18 07/26/18 08:00 09:00 09:20 10:00 Pulse 104 103 101 Resp 15 10 15 B/P (MAP) 173/93 (119) 158/88 (111) Pulse Ox 94 95 95 O2 Delivery Mechanical Ventilator Nasal Cannula Nasal Cannula O2 Flow Rate 30.00 4.00 4.00 FiO2 30 07/26/18 07/26/18 07/26/18 07/26/18 10:00 10:05 11:00 11:00 Pulse 101 101 101 Resp 15 12 12 B/P (MAP) 158/88 (111) 168/98 (121) 168/98 (121) Pulse Ox 95 95 94 94 O2 Delivery Nasal Cannula Vapotherm Nasal Cannula Nasal Cannula O2 Flow Rate 4.00 25.00 4.00 4.00 FiO2 35 07/26/18 07/26/18 07/26/18 07/26/18 12:00 12:00 12:00 13:19 Temp 98.7 Pulse 101 103 Resp 14 B/P (MAP) 185/96 (125) Pulse Ox 96 95 O2 Delivery Vapotherm Nasal Cannula O2 Flow Rate 25.00 4.00 FiO2 35 07/25/18 23:59 Intake Total 200 ml Output Total 4215 ml Balance -4015 ml Weight (Pounds): 275 Weight (Ounces): 0.0 Weight (Calculated Kilograms): 124.117756 Constitutional: other (intubated and sedated) Respiratory: chest expansion is symmetric, chest is bilaterally symmetric, other (scattered wheezes; coarse lower lobes; fair air entry) Cardiovascular: regular rate-rhythm; No JVD; S1 and S2 Gastrointestional: soft, round, audible bowel sounds Genital/Rectal: other (urinary catheter to DD with clear, yellow urine) Extremities: other (mild pedal edema bilat) Neurologic/Psychiatric: other (intubated and sedated; appears to move extremities) Skin: normal color, warm/dry; No rash, No ulcerations Results/Procedures: Labs Laboratory Tests 07/25/18 14:28: Blood Gas Puncture Site RR, Blood Gas Patient Temperature 100.4, Arterial Blood pH 7.53H, Arterial Blood Partial Pressure CO2 30L, Arterial Blood Partial Pressure O2 106H, Arterial Blood HCO3 25, Arterial Blood Total CO2 25.7, Arterial Blood Oxygen Saturation 99, Arterial Blood Base Excess 2.2, Vipul Test YES-POS, Blood Gas Ventilator Setting YES, Blood Gas Inspired Oxygen 40 07/25/18 17:56: Glucometer 132H 07/25/18 18:21: Glucometer 121H 07/25/18 20:15: Glucometer 131H 07/25/18 23:58: Glucometer 119H 07/26/18 03:30: White Blood Count 10.7, Red Blood Count 3.76L, Hemoglobin 10.9L, Hematocrit 35L , Mean Corpuscular Volume 92, Mean Corpuscular Hemoglobin 29, Mean Corpuscular Hemoglobin Concent 32, Red Cell Distribution Width 14.6H, Platelet Count 200, Mean Platelet Volume 10.5H, Neutrophils (%) (Auto) 69, Lymphocytes (%) (Auto) 18 , Monocytes (%) (Auto) 10, Eosinophils (%) (Auto) 3, Basophils (%) (Auto) 0, Neutrophils # (Auto) 7.4, Lymphocytes # (Auto) 2.0, Monocytes # (Auto) 1.1H, Eosinophils # (Auto) 0.3, Basophils # (Auto) 0.0, Blood Gas Puncture Site RT RAD , Blood Gas Patient Temperature 97.2, Arterial Blood pH 7.39, Arterial Blood Partial Pressure CO2 46H, Arterial Blood Partial Pressure O2 77L, Arterial Blood HCO3 27, Arterial Blood Total CO2 28.8, Arterial Blood Oxygen Saturation 95, Arterial Blood Base Excess 2.7H, Vipul Test YES-POS, Blood Gas Ventilator Setting YES, Blood Gas Inspired Oxygen 30%, Sodium Level 150H, Potassium Level 3.3L, Chloride Level 114H, Carbon Dioxide Level 24, Anion Gap 12, Blood Urea Nitrogen 29H, Creatinine 1.10, Estimat Glomerular Filtration Rate > 60, BUN/ Creatinine Ratio 26, Glucose Level 145H, Calcium Level 8.9, Corrected Calcium 9.5, Phosphorus Level 2.6, Magnesium Level 2.1, Total Bilirubin 0.6, Aspartate Amino Transf (AST/SGOT) 20, Alanine Aminotransferase (ALT/SGPT) 31, Alkaline Phosphatase 47, Total Protein 6.0L, Albumin 3.2 07/26/18 08:37: Blood Gas Puncture Site LT RAD, Blood Gas Patient Temperature 99.7, Arterial Blood pH 7.52H, Arterial Blood Partial Pressure CO2 32L, Arterial Blood Partial Pressure O2 100H, Arterial Blood HCO3 26, Arterial Blood Total CO2 26.8, Arterial Blood Oxygen Saturation 98, Arterial Blood Base Excess 3.1H, Vipul Test YES-POS, Blood Gas Ventilator Setting YES, Blood Gas Inspired Oxygen 30% 07/26/18 11:58: Glucometer 197H 07/26/18 12:44: Sodium Level 147H, Potassium Level 4.0, Chloride Level 108H, Carbon Dioxide Level 24, Anion Gap 15H, Blood Urea Nitrogen 29H, Creatinine 1.12, Estimat Glomerular Filtration Rate > 60, BUN/Creatinine Ratio 26, Glucose Level 227H, Calcium Level 9.7, Phosphorus Level 3.0, Magnesium Level 1.8, Triglycerides Level 162H Microbiology 07/22/18 Blood Culture - Preliminary, Resulted Corynebacterium species See Comments 07/25/18 Gram Stain - Final, Resulted 07/25/18 Bronchial Culture, Resulted Pending 07/25/18 Fungal Culture 1, Resulted Pending 07/22/18 Urine Culture - Final, Complete NO GROWTH Laboratory Tests 07/25/18 03:15 07/26/18 03:30 07/26/18 12:44 A/P: Assessment: Acute resp failure, probably due to aspiration pneumonia Acute renal failure - resolved UTI with sepsis - management per medical/ICU services Hyperkalemia secondary to acute renal failure - resolved - currently hypokalemic ST with LBBB DM COPD Chronic narcotic use d/t chronic back pain Echo of 07/23/18: LVEF 65-70%, mild conc LVH, grade 1 max dysfunction Plan: * Critically ill * Continue current regimen * Monitor labs * HTN - improving * Change BB to oral when able to take medications * Hypokalemia - replacement given * Renal function improved * Plan is to be extubated today Physician Assessment Physician Assessment Extubated by the time of my exam this am, but very drowsy and unable to provide any history No acute distress Lungs: good air entry, diminished at the bases Cor: reg Ext: mild leg edema A&R * As documented in our note above that I updated (italics) and as noted below * Monitor labs * Dr Fabian covering our service over the weekend BRE JETER D[employer] PROSTHETIST July 26, 2018 08:59 RAMON JOYCE MD FACP FAC CCDS July 26, 2018 14:15
--- NOTE | 2018-07-26 09:15 | NUR ---
extubated to 4 lpm high flow cannula. vs are stable and pt is tolerating cannula well spo2-95%-96% heart rate 100 and respiratory rate 12-16. pt continues to cough up large amounts of sputum with spontaneous cough.
[2018-07-26] MEDS ORDERED: HOLD METFORMIN - RECEIVED CONTRAST 20 ML VIAL IV SCH (11:00)
[2018-07-26] MEDS ORDERED: IOHEXOL 350 MG/ML 100 ML (OMNIPAQUE 350) VIAL IV ONE (11:00)
--- NOTE | 2018-07-26 11:20 | NUR ---
Pastoral care visit, pts mother by bed, provided prayer and support
--- NOTE | 2018-07-26 11:49 | ST Dysphagia Evaluation ---
Speech Evaluation-General Medical Diagnosis Acute Respiratory Failure, Aspiration Pneumonia Onset Date: Jul 22, 2018 Therapy Diagnosis Therapy Diagnosis: Oropharyngeal Dysphagia Precautions Precautions: Aspiration Precautions/Isolations: Aspiration, Fall Prevention, Standard Precautions, Pressure Ulcer Referral Referring Physician: Dr. Tucker Medical History Pertinent Medical History: Arthritis, DM, HTN Reviewed History: Yes Speech PLF/Current-Dysphagia Prior Level of Function The patient lived in his own home. He was independent for his daily needs. Subjective The patient was just extubated this morning. Patient was responsive to directions. Cognitive Status Patient Orientation: Person Patient decreased in level of alert. Oral Motor Skills Dentition: Natural, Tumbled, Stained Patient's few remaining teeth appear to be in very poor condition. Oral Expression Ability: Mild Impairment Patient is decreased in level of alert. Oral-Facial Assessment Oral-Facial Dentition: Normal Labial Seal Description: Normal Smile: Reduced ROM Puff Cheeks: Reduced Strength Lingual Protrusion: Normal Lingual ROM: Normal Lingual Strength: Normal Pharynx Velopharyngeal Move.: Normal Volitional Dry Swallow: Yes Voluntary Cough: Yes Can Clear Throat Volitionally: Yes Productive Cough: No Productive Throat Clear: No Dysphagia Evaluation Consistencies Presented: Thin Liquid, Holloway Thick Liquid, Pureed Oral Phase: Reduced Oral Transit Pharyngeal Phase: Decreased A/P Bolus Transit, Delayed Swallow Funct. Velo/Pharyngeal Symptom: Cough After Swallow Dietary Recommendations: Pureed Liquid Recommendations: Holloway Consistancy Swallowing Precautions: Alternate Liquids/Solids, Double Swallow, Decreased Bolus 1/2 Tsp, Liquids from Spoon, Small Bites and Sips, Sitting Upright 90 Degrees, Sitting 90 Degrees 30 Post Intake Dysphagia Evaluation Summary The patient is a 62 year old male who was found unresponsive on 07/22/18. He was brought to the ER and found to have acute respiratory failure. He has been intubated until today. S/p extubation the Bedside Dysphagia Evaluation was completed. The patient was presented thin liquid by spoon, 1/2 tsp. x3 with cough noted after each presentation. The patient consumed nectar consistency without coughing at 1/2 tsp. presentations. Patient tolerated puree without coughing. The patient has few remaining teeth which appear to be in very poor condition. Due to his decreased level of alert, oral condition and delayed swallow the patient will be on nectar consistency liquids and a Dysphagia 1 level diet of puree. This information was provided to his nurse. Barriers to Learning Patient has a decreased level of alert. Speech Short Term Goals Short Term Goals Short Term Goals 1) The patient will tolerate least restrictive diet level without s/s of aspiration at 90% or greater. 2) The patient will utilize compensatory strategies for safest level of intake as trained at 90% or greater. Speech Molding Associate Goals Molding Associate Goals The patient will maintain adequate nutrition/hydration via safe effective swallow function. Speech-Plan Patient/Family Goals Patient/Family Goals: The patient's plan upon discharge from the hospital is unknown at this time. Treatment Plan Speech Therapy Treatment Plan: Continue Plan of Care The patient will receive skilled dysphagia therapy. Frequency: 3 times per week Estimated Hrs Per Day: .25 hour per day Rehab Potential: Guarded Barriers to Learning: Decreased level of alert Pt/Family Agrees to Plan: Yes Safety Risks/Education Teaching Recipient: Patient Teaching Methods: Discussion Response to Teaching: Verbalize Understanding Education Topics Provided: Safety of oral intake Time Speech Therapy Time In: 09:45 Speech Therapy Time Out: 10:00 Total Billed Time: 15 Billed Treatment Time 1K[address] ST July 26, 2018 11:49
[2018-07-26] MEDS: methylPREDNISolone 40 MG/ML (Solu-MEDROL) VIAL IV SCH ×2 (11:56→16:51)
--- NOTE | 2018-07-26 12:02 | Diagnostic Imaging Report ---
INDICATION: Dyspnea Study compared 07/25/2018 FINDINGS: ET tube mid trachea. Right IJ at the SVC. Bilateral perihilar and lower lobe infiltrates perhaps mildly improved on the right and at the left base. IMPRESSION: Bilateral infiltrate showed mild improvement. Stable support apparatus. No pneumothorax. Dictated by: Dictated on workstation # [id number]
--- NOTE | 2018-07-26 12:25 | Progress Note-Hospitalist ---
Subjective HPI/CC On Admission Date Seen by Provider: July 26, 2018 Time Seen by Provider: 12:15 The patient is a 62-year-old white male who was brought to the emergency room this morning in an unresponsive state. Subjective/Events-last exam Patient was extubated this morning successfully. He is somnolent but follows commands. Follow-up CT head was obtained today to evaluate for possible's occult stroke. Results are pending. Family thinks he is much better and is feeding him thickened liquids and he's having success with swallowing and no choking. Focused Exam Time of Focused Exam: 10:15 Objective Exam Vital Signs Vital Signs Date Time Temp Pulse Resp B/P (MAP) Pulse Ox O2 Delivery O2 Flow Rate FiO2 07/27/18 18:40 94 Nasal Cannula 4.00 07/27/18 16:00 97.7 98 20 159/82 (107) 07/27/18 06:47 35 Capillary Refill : Less Than 3 Seconds General Appearance: Chronically ill, Obese, Other (on vent with mild anxiousness) HEENT: Pharynx Normal, Moist Mucous Membranes (mildly dry with ibarra thick mucus the back of the throat); No Tonsillar Exudate, No Tonsillar Enlargement Respiratory: Normal Breath Sounds, No Accessory Muscle Use Cardiovascular: Regular Rate, Rhythm, No Edema, No Murmur, Normal Peripheral Pulses Gastrointestinal: Normal Bowel Sounds, No Organomegaly, Non Tender, Soft Extremity: Normal Capillary Refill, Normal Inspection Neurologic/Psychiatric: Other (GCS 6 E2V1M3) Skin: Normal Color, Warm/Dry Lymphatic: No Adenopathy Results/Procedures Lab Laboratory Tests 07/27/18 03:23 Patient resulted labs reviewed. Assessment/Plan Assessment and Plan Assess & Plan/Chief Complaint 1. Acute respiratory failure on chronic respiratory insufficiency and chronic narcotics use status post elective extubation. 2. Pneumonia secondary to aspiration with thick secretions. Status post bronchoscopy and extubation- changed to meropenem 3. Mental status changes possible some hypoxic damage CT results pending patient is following commands 4. Hypernatremia with change in IV fluids 5. Fluid overload status post Bumex and Lasix 1 6. Morbid obesity Diagnosis/Problems Diagnosis/Problems (1) Severe sepsis Status: Acute (2) Acute respiratory failure with hypoxemia Status: Acute (3) COPD (chronic obstructive pulmonary disease) Status: Chronic Qualifiers: COPD type: unspecified COPD Qualified Codes: J44.9 - Chronic obstructive pulmonary disease, unspecified (4) Insulin dependent diabetes mellitus Status: Chronic (5) Essential (primary) hypertension Status: Chronic (6) Chronic back pain Status: Chronic Qualifiers: Back pain location: back pain in unspecified location Back pain laterality : unspecified Qualified Codes: M54.9 - Dorsalgia, unspecified; G89.29 - Other chronic pain (7) Acute kidney injury Status: Acute (8) Septic shock Status: Acute (9) Normocytic anemia Status: Chronic Clinical Quality Measures DVT/VTE Risk/Contraindication: Risk Factor Score Per Nursin RFS Level Per Nursing on Admit: 4+=Very High SIA ALFONSO MD July 26, 2018 12:25
--- NOTE | 2018-07-26 12:36 | Diagnostic Imaging Report ---
CLINICAL INDICATION: Patient with delayed mental status and septic shock. EXAMS: 1: Head CT with and without IV contrast. 2: CT angiogram of the head and neck performed with 100 cc of Omnipaque 350 IV contrast. Sagittal and coronal MIP reformations were created for better visualization of vascular anatomy. COMPARISON: Head CT without IV contrast dated 07/22/2018. FINDINGS: HEAD CT: There is skull streak artifact which obscures portions of the brainstem, posterior fossa, and portions of the brain and the skull. There is no evidence of acute cerebral infarct, intracranial hemorrhage, or gross mass effect. There is no abnormal IV contrast enhancement. The brain parenchymal volume appears appropriate for patient's age. There are small patchy areas of low-attenuation white matter changes involving both cerebral hemispheres, likely representing chronic small vessel ischemic disease. There is normal ibarra-white matter distinction. There is no significant midline shift or herniation. There is no evidence of hydrocephalus. The basal cisterns are unremarkable. The skull, extracranial soft tissue, and orbits are unremarkable. There are minimal frothy secretions in the sphenoid sinus. Temporal bones show no significant abnormality. CT ANGIOGRAM: There is dense contrast bolus seen within the right subclavian vein and superior vena cava with some reflux into the innominate vein, which causes streak artifact greatly obscuring the aortic arch and proximal great vessels. There is motion artifact which obscures the entire neck portion of the exam. There is skull streak artifact which obscures the intracranial portion of this exam. Three-vessel aortic arch is seen. There is artifact obscuring the proximal to mid and distal left subclavian artery with some contrast density seen within most of it. There is significant artifact from motion which obscures the bilateral common carotid arteries. There is contrast seen within most of the vessels. The bilateral cervical ICA are slightly obscured by motion and streak artifact, but appear patent. The bilateral ECA appear grossly patent. The right subclavian artery is greatly obscured by streak and motion artifact with some contrast seen within it. The brachiocephalic artery is patent. The bilateral cervical vertebral arteries at their origins and proximal portions are uninterpretable. The mid portions of the bilateral cervical vertebral arteries are uninterpretable due to motion artifact. There is contrast seen in the non-obscured areas of the bilateral cervical vertebral arteries suggesting some degree of patency. The intradural bilateral vertebral arteries, basilar artery, and bilateral superior cerebellar arteries are patent. There is a right posterior communicating artery. The petrous and cavernous portions of the bilateral ICAs are slightly obscured, but grossly patent. The supraclinoid lateral ICAs are patent. The bilateral A1 ACAs and their distal branches are patent. There is significant skull streak artifact obscuring the bilateral MCAs with the left side worse than the right. The bilateral MCAs and their distal vessels are grossly patent with no major vascular occlusion seen. The dural venous sinuses are patent. The neck soft tissue structures are greatly obscured by motion artifact and streak artifact. There are no gross abnormalities visualized. There are multiple patchy airspace opacities and ground-glass opacification involving the visualized right upper lobe, which may be related to infiltrate/pneumonia. There is mild atelectasis in the posterior left upper lobe. There is degenerative disease of the cervical spine. There appears to be retrolisthesis of C4 on C5, but this may just be related to motion artifact. IMPRESSION: 1: The CT angiogram of the head and neck is greatly obscured by motion, skull streak artifact, and contrast bolus streak artifact. Evaluation of the [place] and neck arterial vascular structures are greatly hindered due to the artifact. There is no large vessel occlusion seen, although focal or short segment areas of stenosis cannot be completely excluded. There is no definite aneurysm or vascular malformation seen as visualized. If there is concern for stroke, then MRI of the brain would better evaluate. 2: There are mild age-related brain parenchymal changes with no CT evidence of acute intracranial process. There is no abnormal IV contrast enhancement. Dictated by: Dictated on workstation # [id number]
[2018-07-26 13:13] LABS: BUN/CREATININE RATIO 26; CALCIUM 9.7 MG/DL (8.5-10.1); CARBON DIOXIDE 24 MMOL/L (21-32); CHLORIDE 108 MMOL/L (98-107); CREATININE SERUM 1.12 MG/DL (0.60-1.30); GFR ESTIMATED > 60; GLUCOSE 227 MG/DL (70-105); MAGNESIUM 1.8 MG/DL (1.8-2.4); SODIUM 147 MMOL/L (135-145); TRIGLYCERIDES 162 MG/DL (<150)
--- NOTE | 2018-07-26 17:59 | NUR ---
1749 DUE TO CHANGES IN STAFFING CARE OF PT TO THIS RN. PT IN BED FAMILY MEMBER AT BEDSIDE, NO C/O NOTED. PT ON VAPOTHERM AT 25 L WITH 35%, SA02 NOTED AT 94%. WILL CONTINUE TO MONITOR.
[2018-07-27] VITALS (14 sets, daily range): BP systolic 143–176; BP diastolic 72–116
[2018-07-27] MEDS: inSUlin ASPART (NovoLOG) 1 UNIT/0.01 ML (CHARGE PER UNIT) SC SCH ×5 (00:42→21:52)
[2018-07-27] MEDS: methylPREDNISolone 40 MG/ML (Solu-MEDROL) VIAL IV SCH ×4 (00:43→17:23)
[2018-07-27] MEDS: MEROPENEM 500 MG in WATER (STERILE) FOR INJECTION 10 ML IV SCH ×5 (00:46→18:44)
[2018-07-27] MEDS ORDERED: fentaNYL INJECTION 100 MCG/2 ML AMP IV ONE (02:00)
[2018-07-27] MEDS ORDERED: LORazepam INJ 2 MG/ML (ATIVAN) VIAL IVP ONE (02:00)
[2018-07-27] MEDS ORDERED: LORazepam INJ 2 MG/ML (ATIVAN) VIAL IV ONE (02:00)
[2018-07-27] MEDS ORDERED: fentaNYL INJECTION 100 MCG/2 ML AMP IVP ONE (02:00)
[2018-07-27] MEDS: RT-ALBUTEROL/IPRATROPIUM 3 ML (DUONEB) VIAL INH SCH ×6 (02:39→22:08)
[2018-07-27 03:33] LABS: BASOPHILS % (AUTO) 0 % (0-10); EOSINOPHILS % (AUTO) 0 % (0-10); HEMATOCRIT 39 % (40-54); HEMOGLOBIN 12.5 G/DL (13.3-17.7); LYMPHOCYTES # (AUTO) 1.3 X 10^3 (1.0-4.0); LYMPHOCYTES % (AUTO) 11 % (12-44); MEAN CORPUSCULAR HEMOGLOBIN 29 PG (25-34); MEAN CORPUSCULAR HGB CONC 32 G/DL (32-36); MEAN CORPUSCULAR VOLUME 89 FL (80-99); MEAN PLATELET VOLUME 10.4 FL (7.4-10.4); MONOCYTES # (AUTO) 0.8 X 10^3 (0.0-1.0); MONOCYTES % (AUTO) 7 % (0-12); NEUTROPHILS # (AUTO) 9.9 X 10^3 (1.8-7.8); NEUTROPHILS % (AUTO) 83 % (42-75); PLATELET COUNT 251 10^3/uL (130-400)
[2018-07-27 03:56] LABS: ALANINE AMINOTRANSFERASE 30 U/L (0-55); ALBUMIN 3.6 GM/DL (3.2-4.5); ALKALINE PHOSPHATASE 56 U/L (40-136); BILIRUBIN,TOTAL 0.6 MG/DL (0.1-1.0); BUN/CREATININE RATIO 31; CALCIUM 9.8 MG/DL (8.5-10.1); CARBON DIOXIDE 27 MMOL/L (21-32); CHLORIDE 107 MMOL/L (98-107); CREATININE SERUM 0.94 MG/DL (0.60-1.30); GFR ESTIMATED > 60; GLUCOSE 275 MG/DL (70-105); MAGNESIUM 2.3 MG/DL (1.8-2.4); PHOSPHORUS 2.9 MG/DL (2.3-4.7); POTASSIUM 3.6 MMOL/L (3.6-5.0); SODIUM 146 MMOL/L (135-145)
[2018-07-27] MEDS: KCL 20 MEQ TAB (K-DUR) PO SCH (05:44)
[2018-07-27] MEDS: MAGNESIUM 1 GM/100 ML IVPB 100 ML IV SCH (05:44)
[2018-07-27] MEDS: POTASSIUM CL 10MEQ/50ML IVPB 50 ML IV SCH ×3 (05:55→07:27)
--- NOTE | 2018-07-27 08:19 | Diagnostic Imaging Report ---
Indication: Dyspnea. Time of exam: 4:45 AM Correlation is made with prior study from one day earlier. Right-sided line has tip overlying the SVC. The heart is enlarged. Congestive changes persist but do appear to be improved since yesterday with overall improved aeration to both lungs. No effusion or pneumothorax is seen. Impression: Improved congestive changes when compared with examination one day earlier. Dictated by: Dictated on workstation # [id number]
[2018-07-27] MEDS: PANTOPRAZOLE 40 MG (PROTONIX) VIAL IV SCH (08:23)
[2018-07-27] MEDS: amLODIPine 10 MG (NORVASC) TAB PO SCH (08:23)
[2018-07-27] MEDS: lisINopril 5 MG (PRINIVIL) TABLET PO SCH (08:23)
[2018-07-27] MEDS: meTOprolol TARTRATE 25 MG (LOPRESSOR) TABLET GT SCH ×2 (08:23→21:52)
[2018-07-27] MEDS: ENOXAPARIN 40 MG/0.4 ML (LOVENOX) SYR SC SCH (08:23)
[2018-07-27] MEDS ORDERED: FUROSEMIDE 40 MG/4 ML INJ (LASIX) IVP ONE (09:00)
--- NOTE | 2018-07-27 09:16 | Cardiology Progress Note ---
Subjective Date Seen by Provider: July 27, 2018 Time Seen by Provider: 09:14 Subjective/Events-last exam patient is sitting in a chair, having generalized weakness. Denied any active pain Review of Systems General: No Chills, No Night Sweats; Fatigue, Malaise; No Appetite, No Other HEENT: No Head Aches, No Visual Changes, No Eye Pain, No Ear Pain, No Dysphasia , No Sinus Congestion, No Post Nasal Drip, No Sore Throat, No Other Pulmonary: Dyspnea; No Cough, No Pleuritic Chest Pain, No Other Cardiovascular: No: Chest Pain, Palpitations, Orthopnea, Paroxysmal Noc. Dyspnea, Edema, Lt Headedness, Other Focused Exam Time of Focused Exam: 10:15 Objective-Cardiology Exam Last Set of Vital Signs Vital Signs 07/27/18 07/27/18 07/27/18 04:00 06:47 09:00 Temp 98.9 Pulse 108 Resp 15 B/P (MAP) 145/72 (96) Pulse Ox 100 O2 Delivery Vapotherm O2 Flow Rate 35.00 30.00 FiO2 35 Capillary Refill : Less Than 3 Seconds I&O Intake and Output 07/27/18 00:00 Intake Total 2340 ml Output Total 6950 ml Balance -4610 ml Intake Oral 240 ml IV Total 2100 ml Output Urine Total 6950 ml General: Alert, Oriented X3, Cooperative HEENT: Atraumatic, PERRLA Neck: Supple, No JVD, No Thyromegaly Lungs: Clear to Auscultation, Normal Air Movement Heart: Regular Rate, Normal S1, Normal S2, No Murmurs Abdomen: Normal Bowel Sounds, Soft, No Tenderness, No Hepatosplenomegaly, No Masses Extremities: No Clubbing, No Cyanosis, No Edema, Normal Pulses, No Tenderness/ Swelling Skin: No Rashes, No Breakdown, No Significant Lesion Neuro: Normal Gait, Normal Speech, Normal Tone, Sensation Intact, Other ( generalized weakness) Psych/Mental Status: Mental Status NL, Mood NL Results Lab Laboratory Tests 07/26/18 12:44 07/27/18 03:23 A/P-Cardiology Admission Diagnosis Status post acute respiratory failure Pneumonia Urinary tract infection Sepsis Assessment/Plan Status post acute respiratory failure, extubated, doing better at this time. Next Aspiration pneumonia, treated by primary care team Generalized weakness and loss of energy, no focal deficit was noted. Recovering slowly, start physical therapy. Sepsis with urinary tract infection, managed by ICU team. Diabetes mellitus. Followed and managed by primary care physician COPD. Chronic narcotic use, generalized body Clinical Quality Measures DVT/VTE Risk/Contraindication: Risk Factor Score Per Nursin RFS Level Per Nursing on Admit: 4+=Very High ESTHER ESQUIVEL MD July 27, 2018 09:16
--- NOTE | 2018-07-27 11:19 | Progress Note-Hospitalist ---
Subjective HPI/CC On Admission Date Seen by Provider: July 27, 2018 Time Seen by Provider: 10:45 The patient is a 62-year-old white male who was brought to the emergency room this morning in an unresponsive state. Subjective/Events-last exam Patient was extubated yesterday successfully. He had been slow to respond but was following commands yesterday. Today he is sitting up in a chair answers all questions is alert and oriented his speech is still somewhat slow. CT head showed chronic changes but no acute process. He is on 4 L high flow nasal cannula. No real complaints today. Review of Systems Pulmonary: Dyspnea Neurological: Weakness Focused Exam Time of Focused Exam: 10:15 Objective Exam Vital Signs Vital Signs Date Time Temp Pulse Resp B/P (MAP) Pulse Ox O2 Delivery O2 Flow Rate FiO2 07/27/18 10:25 100 High Flow N/C 5.00 07/27/18 10:00 104 21 143/78 (99) 07/27/18 06:47 35 07/27/18 04:00 98.9 Capillary Refill : Less Than 3 Seconds General Appearance: Chronically ill, Obese, Other (on vent with mild anxiousness) HEENT: Pharynx Normal, Moist Mucous Membranes (mildly dry with ibarra thick mucus the back of the throat); No Tonsillar Exudate, No Tonsillar Enlargement Respiratory: Lungs Clear, Normal Breath Sounds, No Accessory Muscle Use, No Respiratory Distress Cardiovascular: Regular Rate, Rhythm, No Edema, No Murmur, Normal Peripheral Pulses Gastrointestinal: Normal Bowel Sounds, No Organomegaly, Non Tender, Soft Extremity: Normal Capillary Refill, Normal Inspection Neurologic/Psychiatric: Alert, Oriented x3, Depressed Affect Skin: Normal Color, Warm/Dry Lymphatic: No Adenopathy Results/Procedures Lab Laboratory Tests 07/26/18 12:44 07/27/18 03:23 Patient resulted labs reviewed. Imaging: Reviewed Imaging Report Assessment/Plan Assessment and Plan Assess & Plan/Chief Complaint 1. Acute respiratory failure on chronic respiratory insufficiency and chronic narcotics use. status post elective extubation-doing well 2. Pneumonia secondary to aspiration with thick secretions. Status post bronchoscopy and extubation- changed to meropenem-cultures showed normal tommy 3. Mental status changes possible some hypoxic damage CT shows no acute process 4. Hypernatremia with change in IV fluids-improving 5. Fluid overload status post Bumex and Lasix 1 6. Morbid obesity Plan to transfer to the floor Clinical Quality Measures DVT/VTE Risk/Contraindication: Risk Factor Score Per Nursin RFS Level Per Nursing on Admit: 4+=Very High SIA ALFONSO MD July 27, 2018 11:19
--- NOTE | 2018-07-27 12:10 | Occ Therapy Progress Note ---
Therapy Progress Note Attempted to evaluate pt, however pt was eating lunch and declined eval at the time. Nursing reports that he is transferring to 4th floor following lunch. Therefore, pt will be seen for OT lin on Sunday. PATRICK BREWSTER OT July 27, 2018 12:10
--- NOTE | 2018-07-27 12:35 | NUR ---
PT TO ROOM 408 INTRODUCED TO ROOM AND NURSE. FAMILY AT CHAIR SIDE. BEDSIDE REPORT GIVEN TO JOANN ALLEN.
--- NOTE | 2018-07-27 12:53 | Physical Therapy Evaluation ---
PT Evaluation-General Medical Diagnosis Admission Date Jul 22, 2018 at 10:17 Medical Diagnosis: Acute Respiratory Failure, Aspiration Pneumonia Onset Date: Jul 22, 2018 Therapy Diagnosis Therapy Diagnosis: weakness Height/Weight Height (Feet): 6 Height (Inches): 2.00 Weight (Pounds): 259 Weight (Ounces): 8.0 Precautions Precautions/Isolations: Aspiration, Fall Prevention, Standard Precautions, Pressure Ulcer Referral Physician: timothy Reason for Referral: Evaluation/Treatment Medical History Pertinent Medical History: Arthritis, DM, HTN Additional Medical History renal failure, morbid obesity; Current History Pt admitted due to decreased responsiveness; with acute renal failure due to chronic narcotic use; septic shock Reviewed History: Yes Social History Home: Single Level Current Living Status: Spouse Entry Into Home: Stairs With Railing Prior/Core FIM Prior Level of Function Therapy Code Descriptions/Definitions Functional [place] Measure: 0=Not Assessed/NA 4=Minimal Assistance 1=Total Assistance 5=Supervision or Setup 2=Maximal Assistance 6=Modified [place] 3=Moderate Assistance 7=Complete [place] Therapy Quality Codes: 6 Independent with activity with or without an assistive device 5 Patient requires set up or clean up by helper. Patient completes activity by themselves 4 Supervision or touching assist (CGA). Bailey provide cues , steadying assist 3 The helper provides less than half the effort to complete the activity 2 The helper provides more than half the effort to complete the activity 1 Dependent. The helper does all the effort to complete an activity 7 Patient refused to complete or attempt activity 9 The patient did not perform the activity before the current illness or injury 88 Not attempted due to Medical conditions or safety concerns Functional Abilities and Goals: Independent: Patient completed the activities by him/herself, with or without an assistive device, with no assistance from a helper. Needed Some Help: Patient needed partial assistance from another person to complete activities. Dependent: A helper completed the activities for the patient. Unknown: Not Applicable: Family reports he was able to mobilize at prior level of function; reprots he has a cane and a walker at home. Reports he was able to manage his own care. PT Evaluation-Current Subjective pt agrees to PT evaluation. Objective Patient Orientation: Person, Confused (slight), Place Problem Solving: Fair Attachments: Oxygen, IV ROM/Strength ROM Lower Extremities WFL Strength Lower Extremities B LE strength is grossly 3/5 throuthout Integumentary/Posture Integumentary refer to nursing notes. Bowel Incontinence: No Bladder Incontinence: No Posture slightly rounded shoulders. Neuromuscular (Tone, Coordination, Reflexes) WFL Sensory Vision: Functional Hearing: Functional Hand Dominance: Right Sensation Right Lower Extremit: Intact Sensation Left Lower Extremity: Intact Transfers Therapy Code Descriptions/Definitions Functional [place] Measure: 0=Not Assessed/NA 4=Minimal Assistance 1=Total Assistance 5=Supervision or Setup 2=Maximal Assistance 6=Modified [place] 3=Moderate Assistance 7=Complete [place] Transfers (B, C, W/C) (FIM): 1 Supine to/from Sit: 1 Sit to/from Stand: 1 pt able to participate in transfers and mobility but takes assist of 2 to complete. Sit to stand with skilled cues for hand placement and sequencing and assist of 2 to remain standing. Pt able to side step just a few small steps to move from commode to chair. pt up in chair post treatment. Gait Mode of Locomotion: Walk Balance Sitting Static: Fair Sitting Dynamic: Fair Standing Dynamic: Poor Assessment/Needs pt presents post intubation due to unresponsive episode. He has gross functional weakness and requires cues and assist for all functional mobiltiy. He will benefit from skilled PT intervention to address functional mobilty to allow him to transfer and mobilize on his own as he was at [facility]. Rehab Potential: Good PT Air Twister Winder Goals [facility]ci Goals PT [facility]ci Goals Time Frame: August 02, 2018 Transfers (B,C,W/C) (FIM): 4 Gait (FIM): 4 Gait distance (FIM): 3=150 ft Gait Assistive Device: FWW PT Plan Problem List Problem List: Activity Tolerance, Functional Strength, Safety, Balance, Gait, Transfer, Bed Mobility Treatment/Plan Treatment Plan: Continue Plan of Care Treatment Plan: Bed Mobility, Education, Functional Activity Imani, Functional Strength, Gait, Safety, Therapeutic Exercise, Transfers Treatment Duration: August 02, 2018 Frequency: 6 times per week Estimated Hrs Per Day: .5 hour per day Patient and/or Family Agrees t: Yes Safety Risks/Education Patient Education: Transfer Techniques, Safety Issues Teaching Recipient: Patient Teaching Methods: Discussion Response to Teaching: Reinforcement Needed Time/GCodes Time In: 1210 Time Out: 1225 Total Billed Treatment Time: 15 Total Billed Treatment visit EVM 15 SANTIAGO RIVERA PT July 27, 2018 12:53
[2018-07-27] MEDS ORDERED: inSUlin ASPART (NovoLOG) 1 UNIT/0.01 ML (CHARGE PER UNIT) SC ONE (16:00)
[2018-07-27] MEDS ORDERED: MEROPENEM 500 MG VIAL (MERREM) IV ONE (18:30)
[2018-07-28 00:15] VITALS: BP 160/82
[2018-07-28] MEDS: methylPREDNISolone 40 MG/ML (Solu-MEDROL) VIAL IV SCH ×4 (00:31→18:39)
[2018-07-28] MEDS ORDERED: MEROPENEM 500 MG VIAL (MERREM) IV ONE ×4 (00:56→18:28)
[2018-07-28] MEDS: MEROPENEM 500 MG in WATER (STERILE) FOR INJECTION 10 ML IV SCH ×4 (01:17→18:39)
[2018-07-28] MEDS: RT-ALBUTEROL/IPRATROPIUM 3 ML (DUONEB) VIAL INH SCH ×6 (02:56→22:13)
[2018-07-28] MEDS: inSUlin ASPART (NovoLOG) 1 UNIT/0.01 ML (CHARGE PER UNIT) SC SCH ×4 (06:29→21:50)
[2018-07-28 07:49] VITALS: BP 171/81
[2018-07-28] MEDS: lisINopril 5 MG (PRINIVIL) TABLET PO SCH (08:16)
[2018-07-28] MEDS: ENOXAPARIN 40 MG/0.4 ML (LOVENOX) SYR SC SCH (08:16)
[2018-07-28] MEDS: meTOprolol TARTRATE 25 MG (LOPRESSOR) TABLET GT SCH ×2 (08:16→21:54)
[2018-07-28] MEDS: PANTOPRAZOLE 40 MG (PROTONIX) TAB PO SCH (08:17)
[2018-07-28] MEDS: amLODIPine 10 MG (NORVASC) TAB PO SCH (08:17)
[2018-07-28 09:28] LABS: BASOPHILS % (AUTO) 0 % (0-10); EOSINOPHILS % (AUTO) 0 % (0-10); HEMATOCRIT 39 % (40-54); HEMOGLOBIN 12.4 G/DL (13.3-17.7); LYMPHOCYTES # (AUTO) 1.1 X 10^3 (1.0-4.0); LYMPHOCYTES % (AUTO) 8 % (12-44); MEAN CORPUSCULAR HEMOGLOBIN 29 PG (25-34); MEAN CORPUSCULAR HGB CONC 32 G/DL (32-36); MEAN CORPUSCULAR VOLUME 89 FL (80-99); MEAN PLATELET VOLUME 10.5 FL (7.4-10.4); MONOCYTES # (AUTO) 0.8 X 10^3 (0.0-1.0); MONOCYTES % (AUTO) 6 % (0-12); NEUTROPHILS # (AUTO) 11.9 X 10^3 (1.8-7.8); NEUTROPHILS % (AUTO) 86 % (42-75); PLATELET COUNT 281 10^3/uL (130-400); WHITE BLOOD COUNT 13.9 10^3/uL (4.3-11.0)
[2018-07-28 09:46] LABS: BUN/CREATININE RATIO 39; CALCIUM 9.2 MG/DL (8.5-10.1); CARBON DIOXIDE 25 MMOL/L (21-32); CHLORIDE 107 MMOL/L (98-107); CREATININE SERUM 0.96 MG/DL (0.60-1.30); GFR ESTIMATED > 60; GLUCOSE 245 MG/DL (70-105); MAGNESIUM 2.1 MG/DL (1.8-2.4); POTASSIUM 3.8 MMOL/L (3.6-5.0); SODIUM 143 MMOL/L (135-145)
--- NOTE | 2018-07-28 14:09 | Progress Note-Hospitalist ---
Subjective HPI/CC On Admission Date Seen by Provider: July 28, 2018 Time Seen by Provider: 12:00 The patient is a 62-year-old white male who was brought to the emergency room this morning in an unresponsive state. Subjective/Events-last exam Patient is without complaint today. He said he has a little diarrhea. He walked a little ways down the [place] and asks if he can go to his bank tomorrow. Review of Systems Gastrointestinal: Diarrhea Neurological: Weakness Focused Exam Time of Focused Exam: 10:15 Objective Exam Vital Signs Vital Signs Date Time Temp Pulse Resp B/P (MAP) Pulse Ox O2 Delivery O2 Flow Rate FiO2 07/28/18 10:22 95 Nasal Cannula 4.00 07/28/18 07:49 98.3 89 22 171/81 (111) 07/27/18 06:47 35 Capillary Refill : Less Than 3 Seconds General Appearance: Chronically ill, Obese, Other (on vent with mild anxiousness) HEENT: Pharynx Normal, Moist Mucous Membranes (mildly dry with ibarra thick mucus the back of the throat); No Tonsillar Exudate, No Tonsillar Enlargement Neck: Limited Range of Motion Respiratory: Normal Breath Sounds, No Accessory Muscle Use Cardiovascular: Regular Rate, Rhythm, No Edema, No Murmur, Normal Peripheral Pulses Gastrointestinal: Normal Bowel Sounds, No Organomegaly, Non Tender, Soft Extremity: Normal Capillary Refill, Normal Inspection Neurologic/Psychiatric: Alert, Oriented x3, Normal Mood/Affect Skin: Normal Color, Warm/Dry Lymphatic: No Adenopathy Results/Procedures Lab Laboratory Tests 07/28/18 09:10 Patient resulted labs reviewed. Imaging: Reviewed Imaging Report Assessment/Plan Assessment and Plan Assess & Plan/Chief Complaint 1. Acute respiratory failure on chronic respiratory insufficiency and chronic narcotics use. status post elective extubation-doing well 2. Pneumonia secondary to aspiration with thick secretions. Status post bronchoscopy and extubation- changed to meropenem-cultures showed normal tommy 3. Mental status changes possible some hypoxic damage CT shows no acute process 4. Hypernatremia with change in IV fluids-improving 5. Fluid overload status post Bumex and Lasix 1 6. Morbid obesity 7. Deconditioning we'll put in rehabilitation evaluation 8. Diarrhea Will monitor closely for C. difficile 9. Hypertension-w will monitor for now Diagnosis/Problems Diagnosis/Problems (1) Severe sepsis Status: Acute (2) Acute respiratory failure with hypoxemia Status: Acute (3) COPD (chronic obstructive pulmonary disease) Status: Chronic Qualifiers: COPD type: unspecified COPD Qualified Codes: J44.9 - Chronic obstructive pulmonary disease, unspecified (4) Insulin dependent diabetes mellitus Status: Chronic (5) Essential (primary) hypertension Status: Chronic (6) Chronic back pain Status: Chronic Qualifiers: Back pain location: back pain in unspecified location Back pain laterality : unspecified Qualified Codes: M54.9 - Dorsalgia, unspecified; G89.29 - Other chronic pain (7) Acute kidney injury Status: Acute (8) Septic shock Status: Acute (9) Normocytic anemia Status: Chronic Clinical Quality Measures DVT/VTE Risk/Contraindication: Risk Factor Score Per Nursin RFS Level Per Nursing on Admit: 4+=Very High SIA ALFONSO MD July 28, 2018 14:09
[2018-07-28 16:00] VITALS: BP 163/77
[2018-07-29] VITALS: BP 151/76
[2018-07-29] MEDS ORDERED: WATER (STERILE) FOR INJECTION 10 ML ONE ×2 (00:15→06:18)
[2018-07-29] MEDS ORDERED: MEROPENEM 500 MG VIAL (MERREM) IV ONE ×4 (00:15→19:30)
[2018-07-29] MEDS: methylPREDNISolone 40 MG/ML (Solu-MEDROL) VIAL IV SCH ×4 (00:29→19:15)
[2018-07-29] MEDS: MEROPENEM 500 MG in WATER (STERILE) FOR INJECTION 10 ML IV SCH ×4 (00:30→19:15)
[2018-07-29] MEDS: RT-ALBUTEROL/IPRATROPIUM 3 ML (DUONEB) VIAL INH SCH ×6 (01:55→21:54)
[2018-07-29] MEDS: inSUlin ASPART (NovoLOG) 1 UNIT/0.01 ML (CHARGE PER UNIT) SC SCH ×5 (06:23→21:42)
[2018-07-29 08:00] VITALS: BP 151/76
[2018-07-29] MEDS: lisINopril 5 MG (PRINIVIL) TABLET PO SCH (09:52)
[2018-07-29] MEDS: PANTOPRAZOLE 40 MG (PROTONIX) TAB PO SCH (09:52)
[2018-07-29] MEDS: amLODIPine 10 MG (NORVASC) TAB PO SCH (09:52)
[2018-07-29] MEDS: ENOXAPARIN 40 MG/0.4 ML (LOVENOX) SYR SC SCH (09:52)
[2018-07-29] MEDS: meTOprolol TARTRATE 25 MG (LOPRESSOR) TABLET GT SCH ×2 (09:52→21:42)
--- NOTE | 2018-07-29 11:50 | Physical Therapy Daily Note ---
PT Daily Note-Current Subjective Patient in bed pre tx, agrees to PT, has no complaints of pain. Appearance Patient in recliner with legs elevated post tx. Has nurse call, phone, tray, chair alarm on. Mental Status Patient Orientation: Person, Confused, Place Attachments: Oxygen Transfers Therapy Code Descriptions/Definitions Functional [place] Measure: 0=Not Assessed/NA 4=Minimal Assistance 1=Total Assistance 5=Supervision or Setup 2=Maximal Assistance 6=Modified [place] 3=Moderate Assistance 7=Complete [place] Therapy Quality Codes: 6 Independent with activity with or without an assistive device 5 Patient requires set up or clean up by helper. Patient completes activity by themselves 4 Supervision or touching assist (CGA). Morrow provide cues , steadying assist 3 The helper provides less than half the effort to complete the activity 2 The helper provides more than half the effort to complete the activity 1 Dependent. The helper does all the effort to complete an activity 7 Patient refused to complete or attempt activity 9 The patient did not perform the activity before the current illness or injury 88 Not attempted due to Medical conditions or safety concerns Transfers (B, C, W/C) (FIM): 3 Scootin Rollin Supine to/from Sit: 3 Sit to/from Stand: 4 Bed to/from Chair: 3 Patient needs mod assist for supine to sit, min assist for transfer using a rolling walker. He needed cleaned for a BM by nurse aide after standing. Gait Training Gait (FIM): 1 Distance: 3' Gait Level of Assist: 4 Gait Persons Needed: 1 Gait Assistive Device: FWW Patient ambulated just a few feet from the bed to recliner. Unsteady, slow, needs min assist for balance. Exercises Seated Therapy Exercises: Ankle pumps, Long arc quads Seated Reps: 15 Treatments bed mobility and transfers, ambulation, LE exercises Assessment Current Status: Fair Progress less assist with bed mobility PT [facility] Goals Music Department Chair Goals PT Music Department Chair Goals Time Frame: August 02, 2018 Transfers (B,C,W/C) (FIM): 4 Gait (FIM): 4 Gait distance (FIM): 3=150 ft Gait Assistive Device: FWW PT Plan Problem List Problem List: Activity Tolerance, Functional Strength, Safety, Balance, Gait, Transfer, Bed Mobility, ROM Treatment/Plan Treatment Plan: Continue Plan of Care Treatment Plan: Bed Mobility, Education, Functional Activity Imani, Functional Strength, Gait, Safety, Therapeutic Exercise, Transfers Treatment Duration: August 02, 2018 Frequency: 6 times per week Estimated Hrs Per Day: .5 hour per day Patient and/or Family Agrees t: Yes Safety Risks/Education Patient Education: Gait Training, Transfer Techniques, Correct Positioning, Safety Issues Teaching Recipient: Patient Teaching Methods: Demonstration, Discussion Response to Teaching: Reinforcement Needed Time/GCodes Time In: 1125 Time Out: 1140 Total Billed Treatment Time: 15 Total Billed Treatment 1 visit FA AKASH TRAN PT July 29, 2018 11:50
--- NOTE | 2018-07-29 13:49 | Progress Note-Hospitalist ---
Progress Note Progress Notes/Assess & Plan Date Seen 07/29/18 Time Seen by Provider: 13:44 Assessment & Plan I last saw the patient he was on the ventilator. He looks much better now. He still is unable to give me information that would help explain the pathophysiology of the last 2 episodes. He reports that he now feels very weak particularly on the arms and legs. Dr. Condon left mid note stating that he should be considered for rehabilitation and I heartily agreed. Physical exam: He is alert and oriented. His voice is hoarse. Lungs are clear to auscultation. CV is regular without murmur. Abdomen is obese. Impression: Respiratory failure. 2.diabetes mellitus type II insulin requiring. 3.generalized debility. Impression: PT OT eval and assessment for IRF. Focused Exam Time of Focused Exam: 10:15 KEL LAKE MD July 29, 2018 13:49
--- NOTE | 2018-07-29 14:01 | Progress Note-Hospitalist ---
Progress Note Progress Notes/Assess & Plan Date Seen 07/29/18 Time Seen by Provider: 13:50 Assessment & Plan The patient is a 62-year-old white male who was admitted from the emergency room last week after he presented with respiratory failure. The pathophysiology of this is not clear however he apparently had been discharged from the [facility] 2 weeks ago after a very similar sounding event including mechanical ventilator. He is not able to give me any particular insight into the recurrence of this problem. He is a type II diabetic and takes both Levemir and NovoLog. His presentation did not seem to be related to a hypoglycemic episode however. His family was not much help in anything that would help delineate this either. He now feels very weak. And would benefit from IRF. Physical exam: He is alert. His voice is hoarse consistent with his intubation. Lungs are clear to auscultation. CV is regular without murmur. Impression 1 respiratory failure. 2.type II diabetes, insulin requiring. Plan: PT and OT eval and assessment for IR F Focused Exam Time of Focused Exam: 10:15 KEL LAKE MD July 29, 2018 14:01
--- NOTE | 2018-07-29 14:20 | NUR ---
CM/SS, respond to consult. Visited with patient, his SO/Rachel [place], and Step-Mom/Amelie Ling here in hospital room. Lengthy visit with his eldest child/daughter Federico Zamudio by phone who voiced her concern about patient's home environment and her opinion his Rx is high in narcotics. Patient has history of intubations, was obtunded upon arrival to hospital and intubated here. Patient is improving but staff still using [id number]-[id number] and shailesh. Patient being considered for [facility] IRF; if not approved for IRF, va underwriter has discussed community SNF placement with patient, SM, SO, and daughter. They have indicated [facility] as their choice facility should that be needed. Patient has 5 children. Daughter Federico is eldest as mentioned, Carmelo Ling, Matthew Ling, Sundayharoon Agustinon (youngest), and Charan Ling who was adopted out of the family at a young age. [place] was here this weekend and talked with patient about doing an Advanced Directive, she visited with va underwriter about this also. She indicates she would be a field hockey coach to be an agent as far as family, Carmelo and Matthew are local but look to her for management of patient. Sunday is reportedly not involved. Will approach patient about Directive and assist if he would like to complete. Patient's SO/Rachel reeked today of a urine-type odor, so strong it could be detected down the hallway from patient's room. Federico indicates they live in his house, [facility] and squalor, multiple animals inside urinating/defecating and also a bug infestation, old trailer in disrepair, junky yard. Patient apparently generally has a lady friend living with him. Federico stated when she saw Rachel here at hospital she smelled loudly of alcohol. Trauma Counsellor did inquire if Federico had concerns about alcohol or drug use and she could not confirm anything. Her main concern is that patient is on multiple opiates/narcotics and she suspects he isn't able to manage those adequately. DME: History of Home O2 through [facility] Patient now [facility]. Continue discharge planning. Patient will need advancement to a next level of care and then home if/when able, IRF vs SNF. Addendum: 07/29/18 at 1527 by RALPH WILKINS Daughter, Federico Zamudio [address], [address] [place] [address] PH: [phone]
--- NOTE | 2018-07-29 15:07 | Occupational Therapy Eval ---
OT Evaluation-General/PLF Medical Diagnosis Admission Date Jul 22, 2018 at 10:17 Medical Diagnosis: Acute Respiratory Failure, Aspiration Pneumonia Onset Date: Jul 22, 2018 Therapy Diagnosis Therapy Diagnosis: Weakness Height/Weight Height (Feet): 6 Height (Inches): 2.00 Weight (Pounds): 264 Weight (Ounces): 5.0 Precautions Precautions/Isolations: Fall Prevention Safety Interventions: None Weight Bear Status Weight Bearing Restriction: Weight Bearing/Tolerated Referral Physician: Dr. Deal Referral Reason: Activity Tolerance, Self Care, Evaluation/Treatment, Strengthening/ROM Medical History Pertinent Medical History: Arthritis, DM, HTN Additional Medical History Chronic back pain Current History Pt. came to ER with AMS, blood sugar 270+. Reviewed History: Yes Social History Home: Single Level Current Living Status: Spouse Entry Into Home: Ramp ADL-Prior Level of Function Therapy Code Descriptions/Definitions Functional [place] Measure: 0=Not Assessed/NA 4=Minimal Assistance 1=Total Assistance 5=Supervision or Setup 2=Maximal Assistance 6=Modified [place] 3=Moderate Assistance 7=Complete [place] Therapy Quality Codes: 6 Independent with activity with or without an assistive device 5 Patient requires set up or clean up by helper. Patient completes activity by themselves 4 Supervision or touching assist (CGA). [place] provide cues , steadying assist 3 The helper provides less than half the effort to complete the activity 2 The helper provides more than half the effort to complete the activity 1 Dependent. The helper does all the effort to complete an activity 7 Patient refused to complete or attempt activity 9 The patient did not perform the activity before the current illness or injury 88 Not attempted due to Medical conditions or safety concerns Functional Abilities and Goals: Independent: Patient completed the activities by him/herself, with or without an assistive device, with no assistance from a helper. Needed Some Help: Patient needed partial assistance from another person to complete activities. Dependent: A helper completed the activities for the patient. Unknown: Not Applicable: ADL PLOF Comments Pt. states that he was independent prior to getting sick. Self Care: Unknown Functional Cognition: Unknown DME/Equipment Comments Pt. 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 OT Current Status Subjective Pt. does not state a pain level. Appearance Pt. up in chair. Agrees to sponge bathe. Mental Status/Objective Patient Orientation: Unable to Assess Attachments: Oxygen Current Hand Dominance: Right ADL-Treatment Therapy Code Descriptions/Definitions Functional [place] Measure: 0=Not Assessed/NA 4=Minimal Assistance 1=Total Assistance 5=Supervision or Setup 2=Maximal Assistance 6=Modified [place] 3=Moderate Assistance 7=Complete [place] Therapy Quality Codes: 6 Independent with activity with or without an assistive device 5 Patient requires set up or clean up by helper. Patient completes activity by themselves 4 Supervision or touching assist (CGA). [place] provide cues , steadying assist 3 The helper provides less than half the effort to complete the activity 2 The helper provides more than half the effort to complete the activity 1 Dependent. The helper does all the effort to complete an activity 7 Patient refused to complete or attempt activity 9 The patient did not perform the activity before the current illness or injury 88 Not attempted due to Medical conditions or safety concerns Grooming (FIM): 2 (Pt. attempts to brush hair but only "dabs" at it. OT brushes hair thoroughly for him.) Bathing (FIM): 3 (Pt. is able to wash upper body with assist. Pt. is able to wash front trini area. Max assist to wash bilateral feet.) Lower Body Dressing (FIM): 2 (Max assist to doff/don slipper socks.) Other Treatments OT assisted pt. with fresh slipper socks and fresh hospital gown. Pt. washed with warm pack but required cues and assist to wash more thoroughly. Pt. up in chair with all needs met at end of session. Education OT Patient Education: Correct positioning, Modified ADL techniques, Progress toward Goal/Update tx plan, Purpose of tx/functional activities, Reviewed precautions, Rehab process, Transfer techniques Teaching Recipient: Patient Teaching Methods: Demonstration, Discussion Response to Teaching: Verbalize Understanding, Return Demonstration OT Short Term Goals Short Term Goals Time Frame: August 05, 2018 Eating(FIM): 5 Grooming(FIM): 4 Bathing(FIM): 3 Upper Body Dressing(FIM): 4 Lower Body Dressing(FIM): 4 Toileting(FIM): 5 Transfers (B,C,W/C) (FIM): 4 Toilet/Commode Transfer(FIM): 4 Additional Short Term Goals: 1-Demonstrate ADL Tasks, 2-Verbalize Understanding , 3-ImproveStrength/Imani 1=Demonstrate adherence to instructed precautions during ADL tasks. 2=Patient will verbalize/demonstrate understanding of assistive devices/ modifications for ADL. 3=Patient will improve strength/tolerance for activity to enable patient to perform ADL's. OT Care Home Goals Air Twister Winder Goals Time Frame: August 12, 2018 Eating (FIM): 6 Grooming(FIM): 5 Bathing(FIM): 5 Upper Body Dressing(FIM): 5 Lower Body Dressing(FIM): 5 Toileting(FIM): 6 Transfers (B,C,W/C) (FIM): 6 Toilet/Commode Transfer(FIM): 6 Shower Transfer(FIM): 5 Additional Goals: 1-Demonstrate ADL Tasks, 2-Verbalize Understanding, 3- ImproveStrength/Imani 1=Demonstrate adherence to instructed precautions during ADL tasks. 2=Patient will verbalize/demonstrate understanding of assistive devices/ modifications for ADL. 3=Patient will improve strength/tolerance for activity to enable patient to perform ADL's. OT Education/Plan Problem List/Assessment Assessment: Decreased Activ Tolerance, Decreased UE Strength, Dependent Transfers, Impaired Cognition, Impaired I ADL's, Impaired Self-Care Skills Discharge Recommendations Plan/Recommendations: Continue POC Therapy D/C Recommendations: Acute Rehab Treatment Plan/Plan of Care Treatment,Training & Education: Yes Patient would benefit from OT for education, treatment and training to promote independence in ADL's, mobility, safety and/or upper extremity function for ADL' s. Plan of Care: ADL Retraining, Functional Mobility, UE Funct Exercise/Act Treatment Duration: August 12, 2018 Frequency: 5 times per week Estimated Hrs Per Day: .25 hour per day Agreement: Yes Rehab Potential: Fair Time/GCodes Start Time: 13:00 Stop Time: 13:20 Total Time Billed (hr/min): 20 Billed Treatment Time 1GIANLUCA CHRISSY OT July 29, 2018 15:07
[2018-07-29 16:00] VITALS: BP 144/77
--- NOTE | 2018-07-29 16:21 | NUR ---
IRF Evaluation: Order received to evaluate patient for the ARU. Chart reviewed and discussed with Dr. Shrestha - patient accepted. Anticipate admission, 07/30/18. SW/CM notified. Thank you for this referral.
--- NOTE | 2018-07-29 18:15 | Wound Care Assessment ---
Wound Care Assessment Date Seen by Provider: July 29, 2018 Time Seen by Provider: 17:30 Chief Complaint Sacral ulcer. HPI The patient is a 62 year old male with sacral pressure ulcer, consistent with deep tissue injury, after episode of altered LOC and respiratory failure requiring ventilator. There is embarrassment of the epithelium with surrounding ecchymosis. The dressing is Allevyn. The patient is instructed to off-load by lying on side in bed and sitting up straight in chairs. Continue same dressings. Past Medical History: Admits Diabetes Type II altered level of consciousness on presentation. Smoking Status: Former Smoker Recreational Drug Use: No Alcohol Use: Denies Use Review of Systems Pulmonary: No Dyspnea Cardiovascular: No: Chest Pain Exam Vital Signs Date Time Temp Pulse Resp B/P (MAP) Pulse Ox O2 Delivery O2 Flow Rate FiO2 07/29/18 16:00 98.4 90 20 144/77 (99) 95 High Flow N/C 4.00 07/27/18 06:47 35 Capillary Refill : Less Than 3 Seconds General Appearance: no apparent distress Back: other (Sacral ulcer -- 4.0 x 5.0 x 0.2 cm ulcer with 25% epithelium gone, remainder compromised with ecchymosis.) Results Laboratory Tests 07/28/18 20:16: Glucometer 287H 07/29/18 05:02: Glucometer 294H 07/29/18 11:17: Glucometer 218H 07/29/18 16:11: Glucometer 359H Microbiology 07/22/18 Blood Culture - Final, Complete Corynebacterium species See Comments 07/25/18 Mycobacterial Culture - Preliminary, Resulted 07/22/18 Urine Culture - Final, Complete NO GROWTH Assessment/Plan/Dx 1. Sacral pressure ulcer, deep tissue injury, unstageable. 2. Altered level of consciousness, respiratory failure, decreased mobility, resolved or resolving. Plan: Off-load, Allevyn dressings. SPENSER ROBLES MD July 29, 2018 18:14
[2018-07-30] MEDS ORDERED: MEROPENEM 500 MG VIAL (MERREM) IV ONE ×2 (00:06→06:23)
[2018-07-30] MEDS ORDERED: WATER (STERILE) FOR INJECTION 10 ML ONE ×2 (00:06→06:23)
[2018-07-30 00:14] VITALS: BP 151/80
[2018-07-30] MEDS: methylPREDNISolone 40 MG/ML (Solu-MEDROL) VIAL IV SCH ×2 (00:36→06:36)
[2018-07-30] MEDS: MEROPENEM 500 MG in WATER (STERILE) FOR INJECTION 10 ML IV SCH ×2 (00:37→06:37)
[2018-07-30] MEDS: RT-ALBUTEROL/IPRATROPIUM 3 ML (DUONEB) VIAL INH SCH ×3 (02:27→09:59)
[2018-07-30] MEDS: inSUlin ASPART (NovoLOG) 1 UNIT/0.01 ML (CHARGE PER UNIT) SC SCH (06:37)
[2018-07-30] MEDS: meTOprolol TARTRATE 25 MG (LOPRESSOR) TABLET GT SCH (08:23)
[2018-07-30] MEDS: amLODIPine 10 MG (NORVASC) TAB PO SCH (08:23)
[2018-07-30] MEDS: PANTOPRAZOLE 40 MG (PROTONIX) TAB PO SCH (08:23)
[2018-07-30] MEDS: lisINopril 5 MG (PRINIVIL) TABLET PO SCH (08:23)
[2018-07-30] MEDS: ENOXAPARIN 40 MG/0.4 ML (LOVENOX) SYR SC SCH (08:27)
[2018-07-30 08:30] VITALS: BP 181/84
--- NOTE | 2018-07-30 10:17 | Progress Note-Cardiology ---
Cardiology SOAP Progress Note Subjective: Gen body aches and pains. No cp or palp or syncope Objective: I&O/Vital Signs 07/30/18 07/30/18 07/30/18 07/30/18 02:27 06:26 08:30 08:32 Temp 97.6 Pulse 77 Resp 22 B/P (MAP) 181/84 (116) Pulse Ox 94 93 95 O2 Delivery High Flow N/C High Flow N/C High Flow N/C Nasal Cannula O2 Flow Rate 4.00 4.00 4.00 4.00 07/30/18 07/30/18 10:00 10:05 B/P (MAP) Pulse Ox 96 O2 Delivery High Flow N/C O2 Flow Rate 4.00 07/30/18 00:00 Intake Total 2718 ml Output Total 2450 ml Balance 268 ml Weight (Pounds): 264 Weight (Ounces): 3.0 Weight (Calculated Kilograms): 119.666409 Constitutional: other (intubated and sedated) Respiratory: chest expansion is symmetric, chest is bilaterally symmetric, other (scattered wheezes; coarse lower lobes; fair air entry) Cardiovascular: regular rate-rhythm; No JVD; S1 and S2 Gastrointestional: soft, round, audible bowel sounds Genital/Rectal: other (urinary catheter to DD with clear, yellow urine) Extremities: other (mild pedal edema bilat) Neurologic/Psychiatric: other (intubated and sedated; appears to move extremities) Skin: normal color, warm/dry; No rash, No ulcerations Results/Procedures: Labs Laboratory Tests 07/29/18 16:11: Glucometer 359H 07/29/18 20:20: Glucometer 372H 07/30/18 05:14: Glucometer 281H Microbiology 07/22/18 Blood Culture - Final, Complete Corynebacterium species See Comments 07/25/18 Mycobacterial Culture - Preliminary, Resulted 07/22/18 Urine Culture - Final, Complete NO GROWTH A/P: Assessment: Acute resp failure, probably due to aspiration pneumonia Acute renal failure - resolved UTI with sepsis - management per medical/ICU services Hyperkalemia secondary to acute renal failure - resolved - currently hypokalemic ST with LBBB DM COPD Chronic narcotic use d/t chronic back pain Echo of 07/23/18: LVEF 65-70%, mild conc LVH, grade 1 max dysfunction Plan: * BP not well controlled - increase BB dose * Monitor lab closely * Renal function improved * Monitor lab * Plan is transfer to IRF today per Medical Services Physician Assessment Physician Assessment Gen weakness and malaise No cp or palp or syncope or shortness of breath at rest Lungs: dec bs at bases Cor: reg Ext: no c/c/e A&R * As documented in our note above that I updated (italics) and as noted below * BP not well controlled * Increase bb * Monitor labs BRE JETER REHAB THERAPY MANAGER July 30, 2018 10:17 RAMON JOYCE MD FACP FAC CCDS July 30, 2018 13:01
[2018-07-30] MEDS ORDERED: meTOproloL SUCCINATE 50 MG (TOPROL XL) TAB PO NR (10:30)
--- NOTE | 2018-07-30 11:02 | Discharge Summary-Hospitalist ---
Diagnosis/Chief Complaint Date of Admission Jul 22, 2018 at 10:17 Date of Discharge Discharge Date: July 30, 2018 Discharge Diagnosis 1.respiratory failure. 2.metabolic acidosis. 3.lactic acidosis. 4.diabetes mellitus, insulin-requiring. 5.COPD (1) Severe sepsis Status: Acute (2) Acute respiratory failure with hypoxemia Status: Acute (3) COPD (chronic obstructive pulmonary disease) Status: Chronic (4) Insulin dependent diabetes mellitus Status: Chronic (5) Essential (primary) hypertension Status: Chronic (6) Chronic back pain Status: Chronic (7) Acute kidney injury Status: Acute (8) Septic shock Status: Acute (9) Normocytic anemia Status: Chronic Discharge Summary Discharge Physical Exam Allergies: Coded Allergies: No Known Drug Allergies (Unverified , 12/09/14) Vitals & I&Os Vital Signs Date Time Temp Pulse Resp B/P (MAP) Pulse Ox O2 Delivery O2 Flow Rate FiO2 07/30/18 10:05 07/30/18 10:00 96 High Flow N/C 4.00 07/30/18 08:30 97.6 77 22 07/27/18 06:47 35 General Appearance: No Apparent Distress Neurologic/Psychiatric: Alert, Oriented x3 Hospital Course Was the Problem List Reviewed?: Yes The patient was a 62-year-old white male brought to the emergency room by ambulance from [place]. The history is very sketchy. Apparently as determined by the emergency room he had been out and return to his home the day prior he reported he was not feeling well and ultimately went to bed early. When the family checked on him the next morning they found him to be unresponsive and appearing and DIRE STRAITS They had arranged for a physician appointment but felt this was no longer and summoned the ambulance. On arrival he was deeply unresponsive. His blood sugar was 280. His SaO2 was 60. He was intubated and ventilated. His white count was found to be 16,000 his lactic acid 3.55, pH was 7.24 with a PCO2 of 52. Chest x-ray showed bilateral basilar atelectasis. Blood cultures showed a small growth of corynebacterium on one plate. He was paralyzed and sedated and taken to the ICU. Primary management of the ventilator felt to Dr. Deal of pulmonology. The patient remained on the ventilator until 07/26 when he was successfully extubated. To the surprise of all he began to talk and appeared mentally intact. He has steadily improved and is now transferred to the [facility] for rehabilitation. Of particular curiosity , and no one in the family can seem to give a rational history about this, the patient was hospitalized and placed on the ventilator in [place] and dismissed about 2 weeks ago. The pathophysiology of these attacks remains unclear. Labs (last 24 hrs) Laboratory Tests 07/29/18 11:17: Glucometer 218H 07/29/18 16:11: Glucometer 359H 07/29/18 20:20: Glucometer 372H 07/30/18 05:14: Glucometer 281H Microbiology 07/22/18 Blood Culture - Final, Complete Corynebacterium species See Comments 07/25/18 Mycobacterial Culture - Preliminary, Resulted 07/22/18 Urine Culture - Final, Complete NO GROWTH Patient resulted labs reviewed. Pending Labs Laboratory Tests 07/30/18 05:14: Glucometer 281 Imaging: Reviewed Imaging Report Discussion & Recommendations Discharge Planning: >30 minutes discharge planning Discharge Home Medications: Active Scripts Active Reported Ventolin Hfa (Albuterol Sulfate) 18 Gm Hfa.aer.ad 1-2 Puff IH QID Amlodipine Besylate 5 Mg Tablet 5 Mg PO DAILY Levemir (Insulin Determir) 1,000 Units/10 Ml Soln 30 Units SQ BID Glimepiride 4 Mg Tablet 4 Mg PO BID Diclofenac Sodium 75 Mg Tablet.dr 75 Mg PO BID Lisinopril 20 Mg Tablet 20 Mg PO BID Vitamin D3 (Cholecalciferol (Vitamin D3)) 1,000 Unit Capsule 1,000 Unit PO DAILY Symbicort 160-4.5 Mcg Inhaler (Budesonide/Formoterol Fumarate) 10.2 Gm Hfa.aer.ad 2 Puff IH BID Fluticasone Propionate 16 Gm [place].susp 2 Sprays NSEACH DAILY Meclizine HCl 25 Mg Tablet 12.5 Mg PO QID TAKES 1/2 OF A (25 MG) TABLET Vesicare (Solifenacin Succinate) 5 Mg Tablet 5 Mg PO DAILY Diazepam 2 Mg Tablet 2 Mg PO Q8H PRN Novolog (Insulin Aspart) 100 Unit/1 Ml Susp 30 Units SQ AC Amitriptyline HCl 50 Mg Tablet 50 Mg PO HS Oxycodone-Acetaminophen 5-325 (Oxycodone HCl/Acetaminophen) 1 Each Tablet 1 Tab PO TID PRN Morphine Sulfate ER (Morphine Sulfate) 60 Mg Tablet.er 60 Mg PO Q12H Cyclobenzaprine HCl 10 Mg Tablet 10 Mg PO HS Gabapentin 600 Mg Tablet 600 Mg PO TID Instructions to patient/family Please see electronic discharge instructions given to patient. Clinical Quality Measures DVT/VTE Risk/Contraindication: Risk Factor Score Per Nursin RFS Level Per Nursing on Admit: 4+=Very High Problem Qualifiers (1) COPD (chronic obstructive pulmonary disease): COPD type: unspecified COPD Qualified Codes: J44.9 - Chronic obstructive pulmonary disease, unspecified (2) Chronic back pain: Back pain location: back pain in unspecified location Back pain laterality: unspecified Qualified Codes: M54.9 - Dorsalgia, unspecified; G89.29 - Other chronic pain KEL LAKE MD July 30, 2018 11:02
--- NOTE | 2018-07-30 14:19 | Pulmonary Progress Note ---
Subjective Time Seen by a Provider: 06:00 Subjective/Events-last exam Pt appears to be doing much better. Sepsis Event Evaluation Height, Weight, BMI Height: 6'2.00" Weight: 264lbs. 3.0oz. [id number]; 36.2 BMI Method:Stated Focused Exam Time of Focused Exam: 10:15 Exam Exam Vital Signs Date Time Temp Pulse Resp B/P (MAP) Pulse Ox O2 Delivery O2 Flow Rate FiO2 07/30/18 10:05 07/30/18 10:00 96 High Flow N/C 4.00 07/30/18 08:32 Nasal Cannula 4.00 07/30/18 08:30 97.6 77 22 181/84 (116) 95 High Flow N/C 4.00 07/30/18 06:26 93 High Flow N/C 4.00 07/30/18 02:27 94 High Flow N/C 4.00 07/30/18 00:14 99.0 85 20 151/80 (103) 97 High Flow N/C 4.00 07/29/18 21:54 95 High Flow N/C 4.00 07/29/18 21:00 Nasal Cannula 3.00 07/29/18 18:44 95 High Flow N/C 4.00 07/29/18 16:00 98.4 90 20 144/77 (99) 95 High Flow N/C 4.00 07/29/18 15:09 92 Nasal Cannula 3.00 I & O 07/30/18 07:00 Intake Total 3118 ml Output Total 3900 ml Balance -782 ml Height & Weight Height: 6'2.00" Weight: 264lbs. 3.0oz. 119.298773wf; 36.2 BMI Method:Stated General Appearance: No Apparent Distress HEENT: Pharynx Normal, Moist Mucous Membranes (mildly dry with ibarra thick mucus the back of the throat); No Tonsillar Exudate, No Tonsillar Enlargement Neck: Limited Range of Motion Respiratory: Normal Breath Sounds, No Accessory Muscle Use Cardiovascular: Regular Rate, Rhythm, No Edema, No Murmur, Normal Peripheral Pulses Capillary Refill: Less Than 3 Seconds Peripheral Pulses: 2+ Radial Pulses (R), 2+ Radial Pulses (L) Gastrointestinal: soft, distended (mild), hernia (small umbilical) Extremity: Normal Capillary Refill, Normal Inspection Neurologic/Psychiatric: Alert, Oriented x3 Skin: Normal Color, Warm/Dry Lymphatic: No Adenopathy Assessment/Plan Assessment/Plan Acute respiratory failure-- much improved -S/p bronchoscopy -Influ is neg -MRSA swab is negative -Continue ventilator care and protocols -Will attempt vent weaning today. D/C sedation -ABG - reviewed -Start SVNs Duoneb Q4 Sepsis - improved -MRSA swab is negative -Busby cultures pending -CT of abd/pelvis is neg -echocardiogram -- results - normal EF and no pericardial effusion - per emission technician Acute MS changes -- possibly from home narcotics/benzos LBBB - per EKG -cardiology - troponins - neg x 2 -Echocardiogram - normal EF and no pericardial effusion Elevated AST -Abd CT scan was negative -US abd reviewed Acute on chronic renal failure with hyperkalemia -IVF -monitor close Metabolic lactic acidosis - secondary to sepsis r/o abdominal sepsis DM -SSI - MARCI Lopez DO July 30, 2018 14:19
[2018-07-31] MEDS ORDERED: meTOproloL SUCCINATE 50 MG (TOPROL XL) TAB PO SCH (09:00)
== END 2018-07-30 10:05 | DRG 871 ==
LOC: EDUNIT# 08:17 → ER 08:22 → ICU 10:17 → 4TH 07-27 12:31
PROVIDERS: ADMIT Internal Medicine; ATTEND Internal Medicine
PROC: 0BH17EZ Insertion of Endotracheal Airway into Trachea, Via Natural or Artificial Opening (ICD-10-PCS; principal; 2018-07-22)
PROC: 5A1945Z Respiratory Ventilation, 24-96 Consecutive Hours (ICD-10-PCS; 2018-07-22)
PROC: 0B9D8ZX Drainage of Right Middle Lung Lobe, Via Natural or Artificial Opening Endoscopic, Diagnostic (ICD-10-PCS; 2018-07-25)
DX: A41.9 Sepsis, unspecified organism (principal); R65.21 Severe sepsis with septic shock; N39.0 Urinary tract infection, site not specified; J96.01 Acute respiratory failure with hypoxia; J69.0 Pneumonitis due to inhalation of food and vomit; N17.9 Acute kidney failure, unspecified; E66.2 Morbid (severe) obesity with alveolar hypoventilation; E87.4 Mixed disorder of acid-base balance; E87.2 Acidosis; J44.9 Chronic obstructive pulmonary disease, unspecified; E11.40 Type 2 diabetes mellitus with diabetic neuropathy, unspecified; I12.9 Hypertensive chronic kidney disease with stage 1 through stage 4 chronic kidney disease, or unspecified chronic kidney disease; N18.9 Chronic kidney disease, unspecified; L89.150 Pressure ulcer of sacral region, unstageable; E87.5 Hyperkalemia; D64.9 Anemia, unspecified; R41.82 Altered mental status, unspecified; M54.9 Dorsalgia, unspecified; M19.91 Primary osteoarthritis, unspecified site; I44.7 Left bundle-branch block, unspecified; G89.29 Other chronic pain; T40.605A Adverse effect of unspecified narcotics, initial encounter; T42.4X5A Adverse effect of benzodiazepines, initial encounter; Z99.81 Dependence on supplemental oxygen; Z87.891 Personal history of nicotine dependence; Z79.4 Long term (current) use of insulin; Z68.34 Body mass index [BMI] 34.0-34.9, adult; Z96.0 Presence of urogenital implants; R19.7 Diarrhea, unspecified
CPT/HCPCS: 31500; 36415; 36600; 51702; 70450; 70496; 70498; 71045; 71250; 74176; 76700; 80048; 80053; 80306; 80320; 80329; 81000; 82150; 82805; 82962; 83036; 83605; 83690; 83735; 83880; 84100; 84478; 84484; 85007; 85025; 85027; 85610; 85730; 87015; 87040; 87070; 87081; 87088; 87101; 87116; 87205; 87206; 93005; 93306; 94002; 94003; 94640; 94760; 94799; 96361; 96365; 96366; 96367; 96375; 99291

== ENCOUNTER 2018-07-30 10:15 | Inpatient (IN) | payer MEDICARE, MEDICAID ==
[~2018-07-30] VITALS: Ht 185.4 cm; Wt 116.7 kg
--- NOTE | 2018-07-30 10:10 | NUR ---
Admitted to room 228-1, with an admitting diagnosis of debility, on 07/30/18 from 4th via , accompanied by .VASQUEZ CAMPBELL V introduced to surroundings, call light, bed controls, phone, TV, temperature control, lights, meal times, smoking policy, visitor policy, side rail policy, bathrooms and showers. Patient Rights given to patient in the handbook.VASQUEZ CAMPBELL V verbalizes understanding that [facility] is not responsible for the loss or damage to any personal effects or valuables that are kept in the patients posession during their hospitalization. The following Patient Care Plans were discussed with the : Discharge Planning, ,, alteration in comfort and . VASQUEZ CAMPBELL V verbalizes understanding of Interdisciplinary Patient Education. Patient and/or family were informed about the Rapid Response Team and its purpose. Patient received Patient Rights Booklet, which includes Privacy Act Statement and Data Collection Information Summary.
--- NOTE | 2018-07-30 10:12 | NUR ---
REVIEWED MED REC IT WAS REPORTED UPON ADMISSION TO ICU
[2018-07-30 10:25] VITALS: BP 157/84
--- NOTE | 2018-07-30 11:08 | NUR ---
Utility Plant Operative followed up with pt's family, who verbalized gratitude that pt was moving to 2nd floor. They said they thought he might during several recent crises. Pt is reportedly in good spirits.
[2018-07-30] MEDS: ENOXAPARIN 40 MG/0.4 ML (LOVENOX) SYR SC SCH (12:03)
--- NOTE | 2018-07-30 12:03 | Occupational Therapy Eval ---
OT Evaluation-General/PLF Medical Diagnosis Admission Date July 30, 2018 at 10:15 Medical Diagnosis: Acute respiratory failure, aspiration pneumonia Onset Date: Jul 22, 2018 Therapy Diagnosis Therapy Diagnosis: impaired self care skills Height/Weight Height (Feet): 6 Height (Inches): 2.00 Weight (Pounds): 264 Weight (Ounces): 5.0 Precautions Precautions/Isolations: Aspiration, Fall Prevention, Standard Precautions, Pressure Ulcer Medical History Pertinent Medical History: Arthritis, DM, HTN Additional Medical History chronic back pain, renal failure, neuropathy Reviewed History: Yes Social History Home: Single Level Current Living Status: Significant Other Entry Into Home: Ramp ADL-Prior Level of Function Therapy Code Descriptions/Definitions Functional [place] Measure: 0=Not Assessed/NA 4=Minimal Assistance 1=Total Assistance 5=Supervision or Setup 2=Maximal Assistance 6=Modified [place] 3=Moderate Assistance 7=Complete [place] Therapy Quality Codes: 6 Independent with activity with or without an assistive device 5 Patient requires set up or clean up by helper. Patient completes activity by themselves 4 Supervision or touching assist (CGA). [place] provide cues , steadying assist 3 The helper provides less than half the effort to complete the activity 2 The helper provides more than half the effort to complete the activity 1 Dependent. The helper does all the effort to complete an activity 7 Patient refused to complete or attempt activity 9 The patient did not perform the activity before the current illness or injury 88 Not attempted due to Medical conditions or safety concerns Functional Abilities and Goals: Independent: Patient completed the activities by him/herself, with or without an assistive device, with no assistance from a helper. Needed Some Help: Patient needed partial assistance from another person to complete activities. Dependent: A helper completed the activities for the patient. Unknown: Not Applicable: ADL PLOF Comments Pt reports being independent with self care prior to admission. States he used a walker for mobility. Self Care: Independent DME/Equipment: Tub/Shower Drive Self: Yes OT Current Status Subjective Pt agreeable to therapy this morning. Reports 8/10 back pain. Mental Status/Objective Patient Orientation: Person Attachments: Albrecht Catheter, Oxygen Current Glasses/Contacts: Yes Hearing Aids: No Dentures/Partials: No Hand Dominance: Right Upper Extremity ROM decreased shoulder ROM bilaterally Upper Extremity Coordination Fair ADL-Treatment ADL-Current Pt requests shower this morning. Transfer w/c to shower chair with mod assist and skilled cues for safety. To shower via rolling shower chair. Seated bathing completed using hand held shower. Pt able to wash upper body, bilateral upper legs, and trini area. Assist to wash bilateral lower legs and buttocks. Pt donned pullover shirt with minimal assistance. Max assist to don shorts. Pt has decreased standing balance and requires assist to complete pant hike. Increase time required for bathing and dressing tasks. Pt combed hair with minimal assistance to reach back of head. Pt sitting in w/c with needs met after session. Grooming (FIM): 4 Bathing (FIM): 3 Shower/Bathe Self (QC): 3 Upper Body Dressing (FIM): 5 Upper Body Dressing (QC): 4 Lower Body Dressing (FIM): 2 Lower Body Dressing (QC): 2 On/Off Footwear (QC): 2 Education OT Patient Education: Rehab process Teaching Recipient: Patient Teaching Methods: Discussion Response to Teaching: Verbalize Understanding OT Short Term Goals Short Term Goals Time Frame: August 06, 2018 Grooming(FIM): 5 Bathing(FIM): 4 Lower Body Dressing(FIM): 4 Toileting(FIM): 4 Toilet/Commode Transfer(FIM): 4 Shower Transfer(FIM): 4 Additional Short Term Goals: 1-Demonstrate ADL Tasks, 2-Verbalize Understanding , 3-ImproveStrength/Imani 1=Demonstrate adherence to instructed precautions during ADL tasks. 2=Patient will verbalize/demonstrate understanding of assistive devices/ modifications for ADL. 3=Patient will improve strength/tolerance for activity to enable patient to perform ADL's. OT Hand Decorator Goals Hand Decorator Goals Time Frame: August 20, 2018 Eating (FIM): 6 Eating (QC): 6 Groomin Oral Hygiene (QC): 6 Bathing(FIM): 5 Shower/Bathe Self (QC): 5 Upper Body Dressing(FIM): 6 Upper Body Dressing (QC): 6 Lower Body Dressing(FIM): 6 Lower Body Dressing (QC): 6 On/Off Footwear (QC): 6 Toileting(FIM): 6 Toileting Hygiene (QC): 6 Toilet/Commode Transfer(FIM): 6 Toilet/Commode Transfer (QC): 6 Shower Transfer(FIM): 5 Additional Goals: 1-Demonstrate ADL Tasks, 2-Verbalize Understanding, 3- ImproveStrength/[place]man[place] 1=Demonstrate adherence to instructed precautions during ADL tasks. 2=Patient will verbalize/demonstrate understanding of assistive devices/ modifications for ADL. 3=Patient will improve strength/tolerance for activity to enable patient to perform ADL's. OT Education/Plan Problem List/Assessment Assessment: Decreased Activ Tolerance, Decreased UE Strength, Dependent Transfers, Impaired Funct Balance, Impaired I ADL's, Impaired Self-Care Skills Pt to benefit from skilled OT intervention for ADL training, transfers, strengthening, and home safety education to increase level of independence and allow safe discharge home. Discharge Recommendations Plan/Recommendations: Continue POC Treatment Plan/Plan of Care Treatment,Training & Education: Yes Patient would benefit from OT for education, treatment and training to promote independence in ADL's, mobility, safety and/or upper extremity function for ADL' s. Plan of Care: ADL Retraining, Functional Mobility, Group Exercise/Act as Ind, UE Funct Exercise/Act Treatment Duration: August 20, 2018 Frequency: At least 5 of 7 days/Wk (IRF) Estimated Hrs Per Day: 1.5 hours per day Agreement: Yes Rehab Potential: Fair Time/GCodes Start Time: 10:10 Stop Time: 11:05 Total Time Billed (hr/min): 55 Billed Treatment Time 1 visit, EVM(10minutes), ADLx3(45minutes) HAMLET MORRIS OT July 30, 2018 12:03
[2018-07-30] MEDS ORDERED: inSUlin ASPART (NovoLOG) 1 UNIT/0.01 ML (CHARGE PER UNIT) ONE (12:39)
[2018-07-30] MEDS ORDERED: inSUlin ASPART (NovoLOG) 1 UNIT/0.01 ML (CHARGE PER UNIT) SC ONE (12:45)
[2018-07-30] MEDS: methylPREDNISolone 40 MG/ML (Solu-MEDROL) VIAL IV SCH ×2 (12:49→17:52)
--- NOTE | 2018-07-30 12:59 | PM&R H&P / Post Admit Assess ---
History of Present Illness HPI/Chief Complaint Chief complaint: Severe Weakness HPI: This is a 62yoWM clinic Pt of Dr. Nuno who presents to inpatient rehab due to sever myopathy due to critical illness and intubation last week after septic shock, acute kidney injury, and hyperkalemia. He was able to be extubated under Dr. Deal's expertise last Sunday and was well enough to move down to fourth floor to continue IV antibiotics of Meropenem along with supportive care and oxygen. He doesn't use oxygen at home. He is very weak, his prior level of functioning was independent with ADLs and ambulation without assistive devices and currently he is participating in therapy but overall very weak and requiring inpatient rehab. His bowels are moving and urinary catheter will be discontinued upon admission to rehab. Source: patient, family, RN/MD, old records Exam Limitations: no limitations Date Seen 07/30/18 Time Seen by a Provider: 11:00 Attending Physician Lisa Davis DO PCP Elijah Nuno MD Referring Physician Date of Admission July 30, 2018 at 10:15 Home Medications & Allergies Home Medications Reviewed patient Home Medication Reconciliation performed by pharmacy medication reconciliations senior laboratory technician and/or nursing. Patients Allergies have been reviewed. Allergies Allergies Coded Allergies No Known Drug Allergies (Unverified12/09/14) Past Vrffdeo-Rycbhx-Pscfse Hx Past Med/Social Hx: Reviewed Nursing Past Med/Soc Hx, Reviewed and Corrections made Patient Social History Marrital Status: cohabiting Employed/Student: unemployed Smoking Status: Former Smoker Former Smoker, Quit: Jan 26, 2015 Type Used: Cigarettes, Smokeless Tobacco Recent Foreign Travel: No Contact w/other who traveled: No Recent Hopitalizations: No Recent Infectious Disease Expo: No Immunizations Up To Date Tetanus Booster (TDap): Unknown Pediatric: No Seasonal Allergies Seasonal Allergies: No Past Medical History Surgeries: Testicular, Vasectomy Respiratory: Pneumonia Currently Using CPAP: No Currently Using BIPAP: No Cardiac: Hypertension Neurological: Neuropathy Reproductive: Yes (ARTIFICAL TESTICLE, ) Sexually Transmitted Disease: No HIV/AIDS: No Genitourinary: Renal Failure Musculoskeletal: Arthritis, Chronic Back Pain Endocrine: Diabetes, Insulin dep Did You Recieve Any Treatments: No History of Blood Disorders: No Adverse Reaction to Blood Barrera: No Family History Diabetes mellitus 19 MOTHER G8 SISTER Hypertension 19 FATHER 19 MOTHER Myocardial infarction 19 FATHER (STROKES) Heart Disease, CVA, Diabetes Review of Systems Constitutional: see HPI, dizziness, weakness EENTM: no symptoms reported Respiratory: dyspnea on exertion Cardiovascular: no symptoms reported Gastrointestinal: loss of appetite Genitourinary: no symptoms reported Musculoskeletal: back pain, joint pain Skin: no symptoms reported Psychiatric/Neurological: No Symptoms Reported All Other Systems Reviewed Negative Unless Noted: Yes Physical Exam Exam Vital Signs Vital Signs Date Time Temp Pulse Resp B/P (MAP) Pulse Ox O2 Delivery O2 Flow Rate FiO2 07/30/18 20:55 Nasal Cannula 3.00 07/30/18 18:47 92 07/30/18 17:59 99.0 85 20 138/73 (94) Capillary Refill : General Appearance: No Apparent Distress, WD/WN, Chronically ill HEENT: PERRL/EOMI, Normal ENT Inspection, Pharynx Normal, Moist Mucous Membranes Neck: Full Range of Motion, Normal Inspection, Non Tender, Supple Respiratory: Chest Non Tender, Lungs Clear, Normal Breath Sounds, No Accessory Muscle Use, No Respiratory Distress, Decreased Breath Sounds Cardiovascular: Regular Rate, Rhythm, No Edema, No Gallop, No JVD, No Murmur Gastrointestinal: Normal Bowel Sounds, No Organomegaly, No Pulsatile Mass, Non Tender, Soft Back: Normal Inspection, No CVA Tenderness, No Vertebral Tenderness Extremity: Normal Capillary Refill, Normal Inspection, Normal Range of Motion, Non Tender, No Calf Tenderness, No Pedal Edema Neurologic/Psychiatric: Alert, Oriented x3, No Motor/Sensory Deficits ( generalized weakness all extremities), Normal Mood/Affect Skin: Normal Color, Warm/Dry Lymphatic: No Adenopathy Results Results/Procedures Labs Patient resulted labs reviewed. Assessment/Plan Assessment and Plan Assess & Plan/Chief Complaint Assessment: Myopathy Plan: IRF protocol Return to home at [place] with family Monitor sugars Home meds Hold long-acting narcs (1) Myopathy (2) Severe sepsis (3) Normocytic anemia (4) Chronic back pain (5) Essential (primary) hypertension (6) Insulin dependent diabetes mellitus (7) COPD (chronic obstructive pulmonary disease) (8) Prophylactic measure (9) Thrombocytopenia (10) Acute renal failure (11) Volume depletion (12) Acute hyperkalemia (13) Acute kidney injury (14) Left bundle branch block (LBBB) determined by electrocardiography Post Admission Physician Asses Date seen by provider: July 30, 2018 Time seen by provider: 11:00 Admisison Dx: (1) Myopathy The preadmission screen agrees with the post admission assessment that the patient is a good candidate for inpatient rehabilitation. The patient will have a comprehensive program of inpatient rehabilitation with a goal of maximizing level of functional independence prior to discharge home. The patient will have PT/OT ninety minutes per day, each discipline, five days a week for gait, strengthening, conditioning, balance, ADLs, any patient/ family/caregiver training as necessary. Speech therapy to do cognitive assessment and treat as indicated. Rehabilitation nursing to assist with bowel, bladder, skin, wound care, medication administration, pain management. Flight Readiness Technician to assist with discharge planning, community reentry. SCD's for DVT prophylaxis. He appears to be well motivated to participate in three hours of therapy a day. He should be able to tolerate three hours of therapy a day from a medical standpoint. He should benefit from the three hours of therapy a day. He has a reasonable discharge plan, reasonable discharge rehabilitation goals and a supportive family. He has various comorbidities that need to be closely monitored with medications and treatments adjusted on a daily basis as needed. These include: see list Barriers to discharge for this patient who had been independent prior to this are for him to be modified independent to supervision for ADLs and mobility skills prior to discharge home with [family], so as to lessen the burden of the caregivers. Risks for this patient include: 1. Fall 2. Fracture 3. DVT 4. Pulmonary embolism 5. Wound infection 6. Skin breakdown 7. Contractures 8. Poorly controlled pain 9. Urinary retention 10. UTI 11. Respiratory infection 12. Aspiration Estimated Length of Stay: 10 days Prognosis: Rehab prognosis appears good for goal of discharge home modified independent to supervision for ADLs and mobility skills. LISA DAVIS DO July 30, 2018 12:59
--- NOTE | 2018-07-30 13:11 | Physical Therapy Evaluation ---
PT Evaluation-General Medical Diagnosis Admission Date July 30, 2018 at 10:15 Medical Diagnosis: Acute respiratory failure, aspiration pneumonia Onset Date: Jul 22, 2018 Therapy Diagnosis Therapy Diagnosis: impaired mobility, strength, endurance Height/Weight Height (Feet): 6 Height (Inches): 1.00 Weight (Pounds): 265 Weight (Ounces): 8.0 Precautions Precautions/Isolations: Aspiration, Fall Prevention, Standard Precautions, Pressure Ulcer Weight Bear Status Right Lower Extremity: Right Weight Bearing/Tolerated Left Lower Extremity: Left Weight Bearing/Tolerated Referral Physician: Lisa Shrestha DO Reason for Referral: Evaluation/Treatment Medical History Pertinent Medical History: Arthritis, DM, HTN Additional Medical History renal failure, morbid obesity Reviewed History: Yes Social History Home: Single Level Current Living Status: Significant Other Entry Into Home: Ramp Prior/Core [facility] Prior Level of Function Therapy Code Descriptions/Definitions Functional Pershing Measure: 0=Not Assessed/NA 4=Minimal Assistance 1=Total Assistance 5=Supervision or Setup 2=Maximal Assistance 6=Modified Pershing 3=Moderate Assistance 7=Complete Pershing Therapy Quality Codes: 6 Independent with activity with or without an assistive device 5 Patient requires set up or clean up by helper. Patient completes activity by themselves 4 Supervision or touching assist (CGA). [place] provide cues , steadying assist 3 The helper provides less than half the effort to complete the activity 2 The helper provides more than half the effort to complete the activity 1 Dependent. The helper does all the effort to complete an activity 7 Patient refused to complete or attempt activity 9 The patient did not perform the activity before the current illness or injury 88 Not attempted due to Medical conditions or safety concerns Functional Abilities and Goals: Independent: Patient completed the activities by him/herself, with or without an assistive device, with no assistance from a helper. Needed Some Help: Patient needed partial assistance from another person to complete activities. Dependent: A helper completed the activities for the patient. Unknown: Not Applicable: Bed Mobility: 6 Transfers (B,C,W/C) (FIM): 6 Gait: 6 Indoor Mobility (Ambulation): Independent PT Evaluation-Current Subjective Patient in wheelchair at bedside pre tx, agrees to PT, has 8/10 pain in low back. Pt/Family Goals "to get my legs stronger" Objective Patient Orientation: Person, Place, Situation Attachments: Oxygen, Albrecht Catheter ROM/Strength ROM Lower Extremities WNL Strenght Lower Extremities bilateral lower extremities 3/5 gross Integumentary/Posture Bladder Incontinence: Albrecht Cath Neuromuscular (Tone, Coordination, Reflexes) NT Sensory Vision: Functional Hearing: Functional Hand Dominance: Right Sensation Right Lower Extremit: Intact Sensation Left Lower Extremity: Intact Transfers Therapy Code Descriptions/Definitions Functional Pershing Measure: 0=Not Assessed/NA 4=Minimal Assistance 1=Total Assistance 5=Supervision or Setup 2=Maximal Assistance 6=Modified Pershing 3=Moderate Assistance 7=Complete Pershing Therapy Quality Codes: 6 Independent with activity with or without an assistive device 5 Patient requires set up or clean up by helper. Patient completes activity by themselves 4 Supervision or touching assist (CGA). [place] provide cues , steadying assist 3 The helper provides less than half the effort to complete the activity 2 The helper provides more than half the effort to complete the activity 1 Dependent. The helper does all the effort to complete an activity 7 Patient refused to complete or attempt activity 9 The patient did not perform the activity before the current illness or injury 88 Not attempted due to Medical conditions or safety concerns Transfers (B, C, W/C) (FIM): 4 Scootin Rollin Roll Left to Right (QC): 4 Supine to/from Sit: 5 Sit to/from Stand: 4 bed t/f WC(FIM only if WC use): 4 Sit to Lying (QC): 4 Lying to Sitting/Side of Bed(Q: 4 Sit to Stand (QC): 3 Chair/Bhf-ze-Jbttu Xfer(QC): 4 Car Transfer (QC): 4 Patient performs bed mobility with SBA, supine <-> sit with SBA, sit <-> stand with min assist, transfers with CGA, car transfer CGA. Patient needs occasional cues for hand placement and positioning. Gait Does the Patient Walk?: Yes Mode of Locomotion: Walk Anticipated Mode of Locomotion: Walk Gait (FIM): 4 Walk 10 feet (QC): 4 Walk 50 ft with 2 Turns(QC): 4 Walk 150 ft (QC): 4 Walking 10ft/uneven surface-QC: 4 Distance: 200' Gait Level of Assist: 4 Gait Persons Needed: 1 Gait Assistive Device: FWW Comments/Gait Description Patient can ambulate 200' with a rolling walker with CGA (including 50' with at least 2 turns of 90 degrees and 10' over an uneven surface). Patient ambulates slowly with occasional unsteadiness. Cues for purse lip breathing. Stairs Stairs (FIM): 1 #of Steps: 1 Level of Assist: 4 1 Step (curb) (QC): 3 Assistive Device: Walker Patient can go up and down 1 step with a rolling walker with min assist. Cues for foot placement and safety. Balance Sitting Static: Normal Sitting Dynamic: Normal Standing Static: Fair Standing Dynamic: Fair Treatment NuStep level 4 for 15 min. Assessment/Needs Patient has impaired mobility, strength, endurance. He needs assist with sit to stand and stairs and is otherwise CGA and SBA for bed mobility and transfers. Rehab Potential: Fair PT Short Term Goals Short Term Goals Time Frame: August 06, 2018 Transfers (B,C,W/C) (FIM): 5 Gait (FIM): 5 Gait Distance Comment: 200' Gait Level of Assist: 5 Gait Assistive Device: FWW PT Workforce Development Vice President Goals Workforce Development Vice President Goals PT Workforce Development Vice President Goals Time Frame: August 20, 2018 Transfers (B,C,W/C) (FIM): 6 Sit to Lying (QC): 6 Lying-Sitting on Side/Bed(QC): 6 Sit to Stand (QC): 6 Rollin Roll Left to Right (QC): 6 Chair/Xik-wu-Oecmf Xfer(QC): 6 Car Transfer (QC): 6 Gait (FIM): 6 Distance: 300' Walk 10 feet (QC): 6 Walk 10ft-Uneven Surface(QC): 6 Walk 50ft with 2 Turns (QC): 6 Walk 150 ft (QC): 6 Gait Level of Assist: 6 Gait Assistive Device: FWW Stairs (FIM): 2 # of Steps: 4 1 Step (curb) (QC): 4 4 Steps (QC): 4 Stairs Level Of Assist: 5 PT Plan Problem List Problem List: Activity Tolerance, Functional Strength, Safety, Balance, Gait, Transfer, Bed Mobility, ROM Treatment/Plan Treatment Plan: Continue Plan of Care Treatment Plan: Bed Mobility, Education, Functional Activity Imani, Functional Strength, Group Therapy, Gait, Safety, Therapeutic Exercise, Transfers Treatment Duration: August 20, 2018 Frequency: At least 5 of 7 days/Wk (IRF) Estimated Hrs Per Day: 1.5 hours per day Patient and/or Family Agrees t: Yes Safety Risks/Education Patient Education: Gait Training, Transfer Techniques, Steps, Correct Positioning, Safety Issues Teaching Recipient: Patient Teaching Methods: Demonstration, Discussion Response to Teaching: Reinforcement Needed Discharge Recommendations Plan Patient will perform bed mobility and transfer training, balance and endurance training, functional strengthening, stair training, gait training, and education , to improve functional mobility and independence at home. Therapy D/C Recommendations: Home w/ Family Support Time/GCodes Time In: 1105 Time Out: 1200 Total Billed Treatment Time: 55 Total Billed Treatment 1 visit EVM 30' EX 15' FA 10' AKASH GUERRA PT July 30, 2018 13:11
--- NOTE | 2018-07-30 13:56 | ST Dysphagia Evaluation ---
Speech Evaluation-General Medical Diagnosis Acute respiratory failure, aspiration pneumonia Onset Date: Jul 22, 2018 Therapy Diagnosis Therapy Diagnosis: Oropharyngeal Dysphagia Precautions Precautions: Aspiration Precautions/Isolations: Aspiration, Fall Prevention, Standard Precautions, Pressure Ulcer Referral Referring Physician: Dr. Shrestha Reason for Referral: Evaluation/Treatment Medical History Pertinent Medical History: Arthritis, DM, HTN Reviewed History: Yes Social History Current Living Status: Significant Other Speech PLF/Current-Dysphagia Prior Level of Function The patient lives in the home with his significant other. He was independent with most of his daily needs. He states he ate whatever he wanted to. Subjective The patient was cooperative with the Bedside Dysphagia Evaluation. Cognitive Status Patient Orientation: Person, Confused, Place Patient has intermittent random thoughts. Oral Motor Skills Dentition: Tumbled Current Food Consistancy: Pureed, [place] Liquids Ability to Follow Directions: Good Oral Expression Ability: Mild Impairment Voice Voice Phonatory-Based Quality: Hoarse Voice Pitch: Normal Voice Loudness: Normal Face Facial Symmetry: Symmetrical Oral-Facial Assessment Oral-Facial Dentition: Normal Labial Seal Description: Normal Smile: Normal Puff Cheeks: Normal Lingual Protrusion: Normal Lingual ROM: Normal Lingual Strength: Normal Volitional Dry Swallow: Yes Voluntary Cough: Yes Can Clear Throat Volitionally: Yes Dysphagia Evaluation Swallowing Precautions: Alternate Liquids/Solids, Liquids from Straw, Small Bites and Sips, Sitting Upright 90 Degrees, Sitting 90 Degrees 30 Post Intake Dysphagia Evaluation Summary The patient is a pleasant 62 year old man who was admitted to the ARU for strengthening prior to returning home. He was initially placed on a Dysphagia I diet level with nectar consistency liquids s/p extubation on 07/26/2018 due to decreased level of function and alertness. The patient was evaluated today for determining least restrictive diet level due to increased level of function. The patient was given trials of thin liquids via spoon and straw without any difficulty or s/s of aspiration. The patient also was given mechanical soft and regular diet consistencies without difficulty or s/s of aspiration. There was not delay on swallow onset or oral residue noted. The patient will be upgraded to thin liquids and regular diet consistency which was discussed with his nurse. Barriers to Learning Patient has periods of confusion and hallucination like behaviors. Speech Short Term Goals Short Term Goals Short Term Goals 1) The patient will tolerate the least restrictive diet level without s/s of aspiration at 90% or greater. 2) The patient will utilize compensatory strategies as trained with 90% or greater with minimal cues. Speech Jail Goals Jail Goals The patient will maintain adequate nutrition/hydration via safe effective swallow function. Speech-Plan Patient/Family Goals Patient/Family Goals: The patient plans on returning to his home where he lives with his significant other post rehab. Treatment Plan Speech Therapy Treatment Plan: Continue Plan of Care The patient will receive dysphagia therapy for safety of all oral intake. Treatment Duration: August 09, 2018 Frequency: 5 times per week Estimated Hrs Per Day: .5 hour per day Rehab Potential: Fair Barriers to Learning: The patient has had a significant decline in function and will require learning of some skills over again. Pt/Family Agrees to Plan: Yes Safety Risks/Education Teaching Recipient: Patient Teaching Methods: Discussion Response to Teaching: Verbalize Understanding Education Topics Provided: Safety of oral intake Time Speech Therapy Time In: 13:00 Speech Therapy Time Out: 13:15 Total Billed Time: 15 Billed Treatment Time 1, MANSOOR Castillo July 30, 2018 13:56
--- NOTE | 2018-07-30 14:33 | Therapy Group Daily Note ---
Therapy Daily Group Note Patient Education Topic Home Safety, Fall Prevention, Energy Cons, Exercises, ADL, Other List Below Exercises LE Seated Exercise, Sit to/from Stand, ROM, UE Exercise Session Ratio (pt:therapist): 3:1 Goal of Session: Education on ARU Expectations, Home Safety Strategies, Memory Strategies, UE/LE Strengthing, Safety with Transfers Goal Met for this Session: Yes Pt Benefit of Group: Contributions to Others, F/U Use of Strategies @Home, Increased Functional Safety, Increased Functional Strength, Improved Cognition, Recognition of Peers, Socialization Other/Notes Pt. attended group therapy this date. Worked on memory, sequencing, cognitive tasks, UE reaching/strengthening, and functional goal education. Pt. tolerated group well and participated in balloon/ball toss back and forth. Reminisced about past experiences with other group members. Pt. back in room with all needs met at end of treatment. Start Time: 13:15 Stop Time: 14:10 Total Billed Treatment Time: 55 Total Billed Treatment 1, GRP GERARD WHITLEY OT July 30, 2018 14:33
--- NOTE | 2018-07-30 15:56 | ST Cognitive Linguistic Eval ---
Speech Evaluation-General Medical Diagnosis Acute respiratory failure, aspiration pneumonia Onset Date: Jul 22, 2018 Therapy Diagnosis Therapy Diagnosis: Cognitive-communication Precautions Precautions: Aspiration Precautions/Isolations: Aspiration, Fall Prevention, Standard Precautions, Pressure Ulcer Referral Referring Physician: Dr. Shrestha Reason for Referral: Evaluation/Treatment Medical History Pertinent Medical History: Arthritis, DM, HTN Reviewed History: Yes Social History Current Living Status: Significant Other Speech PLF-Current Status Prior Level of Function The patient resides in his own home with his significant other. Prior to admission he was independent for all of his daily needs. Subjective The patient was pleasant and cooperative with the evaluation process. Language Eval: Auditory Comprehends Simple Yes/No Ques: Functional Indent/Objects Multiple [place]: Functional Ident/Pics in Multiple Lomax: Functional Follows 1-Step Commands: Functional Follows Complex Directions: Mild Follows General Conversations: Mild Language Eval: Verbal Language Produces Auto, Serial Info: Functional Imitates Simple Words/Phrases: Functional Word Finding: Functional Requests Basic Needs: Functional States Basic Personal Info: Functional Expresses Complex Ideas: Moderate Objective Cognitive Domain Attention: WNL Memory: Mild Problem Solving: Mild Executive Functions: Mild Visuospatial Skills: WNL Composite Severity Rating: Mild Clock Drawing Severity Rating: Mild Objective Formal/Standardized Tests Yevgeniy Cognitive Assessment (MOCA) Results Visuospatial/Executive: 4/5, Namin/3, Memory: Immediate 4/5, Delayed with cues 3/5, Attention: 5/6, Language: 3/3, Abstraction: 0/2, Orientation: 5/6 Oral Motor/Speech Production Within Functional Limits Impression The patient is a pleasant 62 year old male who was admitted to the ARU for strengthening and medical needs prior to his return home. The patient completed the MOCA with areas of weakness primarily in memory and executive function. He appears to be confused and almost hallucination type recall. The patient exhibits good orientation for most concepts. He is recommended for skilled ST intervention for his cognitive status. Communication/Social Cognition Comprehension: 5 Expression: 5 Social Interaction: 6 Problem Solvin Memory: 4 Speech Patient Assess Expression of Ideas/Wants: Exhibits (3) Understanding Verbal Content: Understands (4) Brief Interview-Mental Status: Yes Repetition of Three Words: Three (3) Temporal Orientation: Year: Missed by 1 year (2) Temporal Orientation: Day: Correct (1) Recall : Wear to say "Sock": Yes, no cue required (2) Recall : Color: No, could not recall (0) Recall : Bed: Yes,after cueing (1) Memory/Recall Ability: Current season, That he or she is in a hsp/hsp unit Speech Short Term Goals Short Term Goals Short Term Goals 1) The patient will tolerate the least restrictive diet level without s/s of aspiration at 90% or greater. 2) The patient will utilize compensatory strategies as trained with 90% or greater with minimal cues. 3) The patient will be able to recall new information related to himself with 90 % or greater given minimal cues. 4) The patient will be able to follow directions for safety with 90% or greater given minimal cues. Speech Jail Goals Jail Goals The patient will maintain adequate nutrition/hydration via safe effective swallow function. The patient will improve his safety and independence in order to return home. Speech-Plan Patient/Family Goals Patient/Family Goals: The patient plans to return home with his significant other post rehab. Treatment Plan Speech Therapy Treatment Plan: Continue Plan of Care The patient will receive skilled ST services for cognitive-communication with focus on safety and independence for his daily needs. Treatment Duration: August 09, 2018 Frequency: 5 times per week Estimated Hrs Per Day: .5 hour per day Rehab Potential: Fair Barriers to Learning: Patient has some memory deficit, confusion Pt/Family Agrees to Plan: Yes Safety Risks/Education Teaching Recipient: Patient Teaching Methods: Discussion Response to Teaching: Verbalize Understanding Education Topics Provided: Safety in order to return home Time Speech Therapy Time In: 15:45 Speech Therapy Time Out: 16:00 Total Billed Time: 15 Billed Treatment Time 1, SPSNDCOMP MANSOOR Sanders July 30, 2018 15:56
[2018-07-30] MEDS: RT-ALBUTEROL/IPRATROPIUM 3 ML (DUONEB) VIAL INH SCH ×3 (15:58→23:01)
[2018-07-30] MEDS: inSUlin ASPART (NovoLOG) 1 UNIT/0.01 ML (CHARGE PER UNIT) SC SCH ×2 (17:52→20:41)
[2018-07-30 17:59] VITALS: BP 138/73
--- NOTE | 2018-07-30 21:58 | Individualized Plan of Care ---
Individualized Plan of Care Rehab Nursing IPOC Order Admission Date July 30, 2018 at 10:15 Current Orders Orders Admission Order(Inpt,Obs,Sdc) (07/30/18 10:05) Vital Signs: Per Unit Policy ( 08,16,00 (07/30/18 10:05) Sociology Professor-Inpt Rehab Con (07/30/18 10:05) Rehab Nursing Orders-Ipoc (07/30/18 10:05) Physical Therapy Rehab Orders (07/30/18 10:05) Occupational Therapy Rehab Ord (07/30/18 10:05) Speech Therapy Rehab Orders (07/30/18 10:05) Intake & Output 06,14,22 (07/30/18 10:05) Precautions (Aru) (07/30/18 10:05) Weekly Weight (Lbs) WEEK (07/30/18 10:05) Rehab-Intensity Of Therapy (07/30/18 10:05) Code/Resuscitation (07/30/18 10:05) Initiate Admission Nursing Pro .admission (07/30/18 10:05) Code/Resuscitation (07/30/18 11:52) Accucheck Achs ACHS (07/30/18 11:52) Iv/Invasive Line Insertion .IV start (07/30/18 11:52) Incentive Spirometry (Nursing) Q2H (07/30/18 11:52) Initiate Admission Nursing Pro .admission (07/30/18 11:52) Initiate/Follow Protocol (07/30/18 11:52) Nursing Communication (Order) (07/30/18 11:52) Sequential Compression Device 08,20 (07/30/18 11:52) Weight Bearing Status (07/30/18 11:52) Automatic Tray (07/30/18 11:52) Albuterol/Ipra Inhalation Soln (Duoneb I (07/30/18 14:00) Enoxaparin Injection (Lovenox Injection) (07/30/18 12:00) Pantoprazole Tablet (Protonix Tablet) (07/31/18 07:00) Amlodipine Tablet (Norvasc Tablet) (07/31/18 09:00) Insulin Aspart (Novolog) (Novolog (Charg (07/30/18 16:00) Insulin Determir (Per Unit) (Levemir (Pe (07/30/18 21:00) Lisinopril Tablet (Zestril Tablet) (07/31/18 09:00) Metoprolol Succinate (Xl) Tab (Toprol Xl (07/31/18 09:00) Methylprednisolone Sod Succ (Solu-Medrol (07/30/18 12:00) Consult Cardiology (07/30/18 11:52) Consult General Surgery (07/30/18 11:52) Consult Pulmonology (07/30/18 11:52) Consult Wound Care Physician (07/30/18 11:52) Irf Req Eval/Acute Rehab (07/30/18 11:52) Mat Initiate Protocol (07/30/18 11:52) Occupational Therapy Order (07/30/18 11:52) Pt Evaluate/Treat Request (07/30/18 11:52) Physical Therapy Oder (07/30/18 11:52) Request Ot Evaluate & Treat (07/30/18 11:52) Request For Dysphagia Services (07/30/18 11:52) Svn Small Volume Nebulizer (07/30/18 11:52) Sociology Professor Consult (07/30/18 11:52) Vapotherm - Admin Rt Rfs (07/30/18 11:52) Svn Small Volume Nebulizer (07/30/18 11:52) Dys1 Pureed (07/30/18 Lunch) Consult Physician (07/30/18 12:11) Consult Physician (07/30/18 12:11) Consult Physician (07/30/18 12:11) Insulin Aspart (Novolog) (Novolog (Charg (07/30/18 12:45) Insulin Aspart (Novolog) (Novolog (Charg (07/30/18 12:39) Consult Physician (07/30/18 13:12) Cho 60g/M 1snack (16-2000 Momo) (07/30/18 Dinner) Patient Visit (07/30/18 ) Patient Visit (07/30/18 ) Pt Eval Moderate Complexity (07/30/18 ) Exercise Therap, Ea 15 Min (07/30/18 ) Functional Activities, Ea 15 (07/30/18 ) Patient Visit (07/30/18 ) Speech Sound Lang Comp (07/30/18 ) Dysphagia Evaluation Std (07/30/18 ) Cbc With Automated Diff (07/31/18 06:00) Comprehensive Metabolic Panel (07/31/18 06:00) Insulin Determir (Per Unit) (Levemir (Pe (07/31/18 21:00) Methylprednisolone Sod Succ (Solu-Medrol (07/31/18 09:00) Insulin Determir (Per Unit) (Levemir (Pe (07/30/18 22:00) Insulin Aspart (Novolog) (Novolog (Charg (07/31/18 06:00) Amitriptyline Tablet (Elavil Tablet) (07/31/18 21:00) Cyclobenzaprine Tablet (Flexeril Tablet) (07/31/18 21:00) Diazepam Tablet (Valium Tablet) (07/30/18 22:00) Fluticasone Nasal [place] Pk (Flonase Nasal S (07/31/18 09:00) Gabapentin Capsule/Tablet (Neurontin Cap (07/31/18 09:00) Lisinopril Tablet (Zestril Tablet) (07/31/18 09:00) Meclizine Tablet (Antivert Tablet) (07/31/18 09:00) Oxycodone/Apap 5/325mg Tablet (Percocet (07/30/18 22:00) Solifenacin (Non-Formulary) (Vesicare (N (07/31/18 09:00) (Nf) Budesonide/Formoterol Fumarate (Sym (07/31/18 09:00) (Nf) Cholecalciferol (Vitamin D3) (Vitam (07/31/18 09:00) (Nf) Diclofenac Sodium (07/31/18 09:00) (Nf) Glimepiride (07/31/18 09:00) (Nf) Morphine Sulfate (Morphine Sulfate (07/30/18 22:00) Pharmacy Communication (Pharmacy Communi (07/30/18 22:00) Rehab Nursing Orders: Ongoing Assess. of Cognitive Status, Ongoing Assess. of Function Status, Bladder Management, Bladder Scan, Bladder Training, Bowel Management, Disease Management & Educaiton, DVT Prophylaxis, Fluid/Electrolyte/ Nutrition Mgmt, Infection Prevention, Management of Risks & Complications, Nutrition Management, Pain Management, Patient/Family Support, Safety Management Intensity of Therapy to be met Patient to be seen: Min.3h per day/5 of 7d PT IPOC Problem List: Activity Tolerance, Functional Strength, Safety, Balance, Gait, Transfer, Bed Mobility, ROM Treatment Plan: Continue Plan of Care Bed Mobility, Education, Functional Activity Imani, Functional Strength, Group Therapy, Gait, Safety, Therapeutic Exercise, Transfers Treatment Duration: August 20, 2018 Frequency: At least 5 of 7 days/Wk (IRF) Estimated Hrs Per Day: 1.5 hours per day OT IPOC Problems: Decreased Activ Tolerance, Decreased UE Strength, Dependent Transfers , Impaired Funct Balance, Impaired I ADL's, Impaired Self-Care Skills OT Treatment, Training and Edu: Yes OT Problems Pt to benefit from skilled OT intervention for ADL training, transfers, strengthening, and home safety education to increase level of independence and allow safe discharge home. Plan of Care: ADL Retraining, Functional Mobility, Group Exercise/Act as Ind, UE Funct Exercise/Act Treatment Duration: August 20, 2018 Frequency: At least 5 of 7 days/Wk (IRF) Estimated Hrs Per Day: 1.[address] IPOC Speech Therapy Treatment Plan: Continue Plan of Care Treatment Duration: August 09, 2018 Frequency: 5 times per week Estimated Hrs Per Day: .5 hour per day Sociology Professor/Case Mgmt Sociology Professor/Case Managemen: Discharge Planning Dietitian/Coal Deliverer Dietitian/Coal Deliverer to monitor nutritional status and make changes and/or recommendations as needed and work with speech pathology on dietary upgrades as the occur. Physician IPOC Medical Issues being managed closely and that require the 24 hour availability of a physician: Brittle DM and new oxygen dependency will require close monitoring to prevent relapse and decompensation Medical Issues: Bowel/Bladder Function, DVT Prophylaxis, Falls Precautions, Fluid/Electrolyte/Nutrition Balance, Infection Protection, Pain Management Brief Synthesis of Preadmission Screen, Post-Admission Evaluation, and Therapy Evaluations: PT will increase strength to improve ambulation and return to PLOF OT will work on independent ADL's Medical Prognosis: Good Anticipated Length of Stay: 7 days ANGÉLICA DAVIS DO July 30, 2018 21:58
[2018-07-30] MEDS ORDERED: NON-FORMULARY MEDICATION 1 EA EA (Morphine Sulfate (Morphine Sulfate ER) 60 MG) PO SCH (22:00)
[2018-07-30] MEDS ORDERED: DIAZEPAM 2 MG (VALIUM) TAB PO PRN (22:00)
[2018-07-31] MEDS ORDERED: methylPREDNISolone 40 MG/ML (Solu-MEDROL) VIAL IV SCH
[2018-07-31] MEDS: RT-ALBUTEROL/IPRATROPIUM 3 ML (DUONEB) VIAL INH SCH ×6 (02:13→21:56)
[2018-07-31 05:05] VITALS: BP 184/91
[2018-07-31] MEDS: PANTOPRAZOLE 40 MG (PROTONIX) TAB PO SCH (06:09)
[2018-07-31] MEDS: TROSPIUM 20 MG (SANCTURA) TAB PO SCH ×2 (06:09→16:37)
[2018-07-31] MEDS: inSUlin ASPART (NovoLOG) 1 UNIT/0.01 ML (CHARGE PER UNIT) SC SCH ×4 (06:29→21:18)
[2018-07-31 06:30] LABS: BASOPHILS % (AUTO) 0 % (0-10); EOSINOPHILS % (AUTO) 0 % (0-10); HEMATOCRIT 36 % (40-54); HEMOGLOBIN 12.1 G/DL (13.3-17.7); LYMPHOCYTES % (AUTO) 9 % (12-44); MEAN CORPUSCULAR HEMOGLOBIN 29 PG (25-34); MEAN CORPUSCULAR HGB CONC 34 G/DL (32-36); MEAN CORPUSCULAR VOLUME 86 FL (80-99); MEAN PLATELET VOLUME 10.7 FL (7.4-10.4); MONOCYTES # (AUTO) 0.8 X 10^3 (0.0-1.0); MONOCYTES % (AUTO) 7 % (0-12); NEUTROPHILS # (AUTO) 9.6 X 10^3 (1.8-7.8); NEUTROPHILS % (AUTO) 84 % (42-75); PLATELET COUNT 238 10^3/uL (130-400); RED CELL DISTRIBUTION WIDTH 12.9 % (10.0-14.5); WHITE BLOOD COUNT 11.4 10^3/uL (4.3-11.0)
[2018-07-31 06:46] LABS: ALANINE AMINOTRANSFERASE 24 U/L (0-55); ALBUMIN 3.5 GM/DL (3.2-4.5); ALKALINE PHOSPHATASE 56 U/L (40-136); BILIRUBIN,TOTAL 0.7 MG/DL (0.1-1.0); BUN/CREATININE RATIO 34; CALCIUM 8.9 MG/DL (8.5-10.1); CARBON DIOXIDE 27 MMOL/L (21-32); CHLORIDE 102 MMOL/L (98-107); CREATININE SERUM 0.85 MG/DL (0.60-1.30); GFR ESTIMATED > 60; GLUCOSE 272 MG/DL (70-105); POTASSIUM 4.2 MMOL/L (3.6-5.0); SODIUM 138 MMOL/L (135-145); TOTAL PROTEIN 5.9 GM/DL (6.4-8.2)
[2018-07-31] MEDS: GABAPENTIN 600 MG (NEURONTIN) TAB PO SCH ×3 (08:19→21:17)
[2018-07-31] MEDS: amLODIPine 10 MG (NORVASC) TAB PO SCH (08:20)
[2018-07-31] MEDS: ETODOLAC 300 MG (LODINE) CAP PO SCH ×2 (08:20→21:17)
[2018-07-31] MEDS: meTOproloL SUCCINATE 50 MG (TOPROL XL) TAB PO SCH (08:20)
[2018-07-31] MEDS: VITAMIN D3 1,000 UNITS (CHOLECALCIFEROL) TABLET PO SCH (08:20)
[2018-07-31] MEDS: MECLIZINE 25 MG (ANTIVERT) TAB PO SCH ×4 (08:21→21:18)
[2018-07-31] MEDS: GLIMEPIRIDE 4 MG (AMARYL) TAB PO SCH ×2 (08:29→21:18)
[2018-07-31 08:37] VITALS: BP 130/71
--- NOTE | 2018-07-31 08:39 | PM&R Progress Note ---
Subjective HPI/CC On Admission Date Seen by Provider: July 31, 2018 Time Seen by Provider: 08:15 Chief complaint: Severe Weakness HPI: This is a 62yoWM clinic Pt of Dr. Nuno who presents to inpatient rehab due to sever myopathy due to critical illness and intubation last week after septic shock, acute kidney injury, and hyperkalemia. He was able to be extubated under Dr. Deal's expertise last Sunday and was well enough to move down to fourth floor to continue IV antibiotics of Meropenem along with supportive care and oxygen. He doesn't use oxygen at home. He is very weak, his prior level of functioning was independent with ADLs and ambulation without assistive devices and currently he is participating in therapy but overall very weak and requiring inpatient rehab. His bowels are moving and urinary catheter will be discontinued upon admission to rehab. Subjective/Events-last exam Had an issue with vertigo this morning and he has a history of that Will DC farooq catheter Blood pressure is very labile Labs checked today, White count is 11 otherwise stable no acute kidney injury that continues Pain is improved Restarted most of his home medications yesterday that were held during acute care phase of the hospital course Bowels are moving Overall doing well Conferred with RN Participating in therapy Hypoglycemia noted since this is a controlled diet environment so will decrease insulin Review of Systems General: Fatigue Neurological: Weakness Objective Exam Vital Signs Vital Signs Date Time Temp Pulse Resp B/P (MAP) Pulse Ox O2 Delivery O2 Flow Rate FiO2 07/31/18 17:15 98.8 85 20 129/67 (87) 92 Room Air 07/31/18 10:30 3.00 Capillary Refill : General Appearance: No Apparent Distress, WD/WN, Chronically ill HEENT: PERRL/EOMI, Normal ENT Inspection, Pharynx Normal, Moist Mucous Membranes Neck: Full Range of Motion, Normal Inspection, Non Tender, Supple Respiratory: Chest Non Tender, Lungs Clear, Normal Breath Sounds, No Accessory Muscle Use, No Respiratory Distress, Decreased Breath Sounds Cardiovascular: Regular Rate, Rhythm, No Edema, No Gallop, No JVD, No Murmur Gastrointestinal: Normal Bowel Sounds, No Organomegaly, No Pulsatile Mass, Non Tender, Soft Back: Normal Inspection, No CVA Tenderness, No Vertebral Tenderness Extremity: Normal Capillary Refill, Normal Inspection, Normal Range of Motion, Non Tender, No Calf Tenderness, No Pedal Edema Neurologic/Psychiatric: Alert, Oriented x3, No Motor/Sensory Deficits ( generalized weakness all extremities), Normal Mood/Affect Skin: Normal Color, Warm/Dry Lymphatic: No Adenopathy Results/Procedures Lab Laboratory Tests 07/31/18 06:10 Patient resulted labs reviewed. FIM Transfers Therapy Code Descriptions/Definitions Functional Beattie Measure: 0=Not Assessed/NA 4=Minimal Assistance 1=Total Assistance 5=Supervision or Setup 2=Maximal Assistance 6=Modified Beattie 3=Moderate Assistance 7=Complete Beattie Therapy Quality Codes: 6 Independent with activity with or without an assistive device 5 Patient requires set up or clean up by helper. Patient completes activity by themselves 4 Supervision or touching assist (CGA). Bledsoe provide cues , steadying assist 3 The helper provides less than half the effort to complete the activity 2 The helper provides more than half the effort to complete the activity 1 Dependent. The helper does all the effort to complete an activity 7 Patient refused to complete or attempt activity 9 The patient did not perform the activity before the current illness or injury 88 Not attempted due to Medical conditions or safety concerns Mental Status/Objective Comprehension: 5 Expression: 5 Social Interaction: 6 Problem Solvin Memory: 4 ADL-Treatment Groomin Bathin Shower/Bathe Self (QC): 3 Upper Extremity Dressin Upper Body Dressing (QC): 4 Lower Extremity Dressin Lower Body Dressing (QC): 2 On/Off Footwear (QC): 2 Assessment/Plan Assessment and Plan Assess & Plan/Chief Complaint Assessment: Myopathy Vertigo acute on chronic Plan: IRF protocol Return to [place] with family Monitor sugars Home meds Hold long-acting narcs Decrease insulin due to hypoglycemia Monitor vertigo (1) Myopathy (2) Chronic back pain (3) Severe sepsis (4) Essential (primary) hypertension (5) Normocytic anemia (6) Thrombocytopenia (7) Acute renal failure (8) Insulin dependent diabetes mellitus (9) Volume depletion (10) COPD (chronic obstructive pulmonary disease) (11) Acute hyperkalemia (12) Acute kidney injury (13) Acute respiratory failure with hypoxemia (14) Altered mental status (15) Left bundle branch block (LBBB) determined by electrocardiography ANGÉLICA DAVIS DO July 31, 2018 08:39
[2018-07-31] MEDS ORDERED: lisINopril 20 MG (PRINIVIL) TABLET PO SCH (09:00)
[2018-07-31] MEDS ORDERED: lisINopril 5 MG (PRINIVIL) TABLET PO SCH (09:00)
[2018-07-31] MEDS ORDERED: NON-FORMULARY MEDICATION 1 EA EA (Cholecalciferol (Vitamin D3) (Vitamin D3) 1,000 UNIT) PO SCH (09:00)
[2018-07-31] MEDS ORDERED: NON-FORMULARY MEDICATION 1 EA EA (Diclofenac Sodium 75 MG) PO SCH (09:00)
[2018-07-31] MEDS ORDERED: NON-FORMULARY MEDICATION 1 EA EA (Glimepiride 4 MG) PO SCH (09:00)
[2018-07-31] MEDS ORDERED: SOLIFENACIN 5 MG TAB (VESICARE) NON-FORMULARY PO SCH (09:00)
[2018-07-31] MEDS ORDERED: morphine ER 30 MG (MS CONTIN) TAB PO SCH (09:00)
[2018-07-31] MEDS ORDERED: NON-FORMULARY MEDICATION 1 EA EA (Budesonide/Formoterol Fumarate (Symbicort 160-4.5 Mcg In IH SCH (09:00)
--- NOTE | 2018-07-31 09:24 | Speech Therapy Daily Note ---
Speech Daily Progress Note Subjective Date Seen by Provider: July 31, 2018 Time Seen by Provider: 00:30 The patient was sitting up in his wheelchair drinking coffee when I entered his room. Objective The patient completed problem solving tasks related to himself with 80% given min to mod verbal cues. Assessment Assessment Current Status: Good Progress Treatment Plan Continue Plan of Care Communication Comprehension: 5 Expression: 5 Social Cognition Social Interaction: 6 Problem Solvin Memory: 4 Speech Short Term Goals Short Term Goals Short Term Goals 1) The patient will tolerate the least restrictive diet level without s/s of aspiration at 90% or greater. 2) The patient will utilize compensatory strategies as trained with 90% or greater with minimal cues. 3) The patient will be able to recall new information related to himself with 90 % or greater given minimal cues. 4) The patient will be able to follow directions for safety with 90% or greater given minimal cues. Speech Fpc Goals Nurse Reviewer Goals The patient will maintain adequate nutrition/hydration via safe effective swallow function. The patient will improve his safety and independence in order to return home. Speech-Plan Patient/Family Goals Patient/Family Goals: The patient plans to return home with his significant other post rehab. Treatment Plan Speech Therapy Treatment Plan: Continue Plan of Care The patient appears to be improved in his orientation this morning. Treatment Duration: August 09, 2018 Frequency: 5 times per week Estimated Hrs Per Day: .5 hour per day Rehab Potential: Fair Barriers to Learning: Patient's recent medical status, memory deficit Pt/Family Agrees to Plan: Yes Safety Risks/Education Teaching Recipient: Patient Teaching Methods: Discussion Response to Teaching: Verbalize Understanding Education Topics Provided: Safety within his room and the rehab area, requesting assistance when needed Time Speech Therapy Time In: 08:30 Speech Therapy Time Out: 09:00 Total Billed Time: 30 Billed Treatment Time 1, MANSOOR Corbin July 31, 2018 09:24
--- NOTE | 2018-07-31 09:48 | Progress Note-Cardiology ---
Cardiology SOAP Progress Note Subjective: Weak and dizzy this am. No palp or syncope or cp Chronic, slowly progressive exertional shortness of breath Chronic, bilateral leg discomfort with walking the equivalent of 2 blocks, relieved with rest, slowly progressive Objective: I&O/Vital Signs 07/30/18 07/31/18 07/31/18 07/31/18 23:01 02:14 05:05 08:37 Temp 99.0 98.7 Pulse 80 94 Resp 22 20 B/P (MAP) 184/91 (122) 130/71 (90) Pulse Ox 90 90 97 96 O2 Delivery Nasal Cannula Nasal Cannula Nasal Cannula Nasal Cannula O2 Flow Rate 4.00 3.00 3.00 3.00 07/31/18 00:00 Intake Total 800 ml Output Total 1100 ml Balance -300 ml Weight (Pounds): 265 Weight (Ounces): 8.0 Weight (Calculated Kilograms): 120.385957 Constitutional: AAO x 3, well-developed, well-nourished Respiratory: other (fair bilat air entry, diminished at the bases, prolonged exp phase) Cardiovascular: regular rate-rhythm, S1 and S2, systolic murmur (soft JESUS at card base) Gastrointestional: No tender; soft; No guarding, No rebound; audible bowel sounds Extremities: No clubbing, No cyanosis, No significant edema Neurologic/Psychiatric: oriented x 3, grossly intact, power is 5/5 both on sides Skin: No rash on exposed areas, No ulcerations on exposed areas Results/Procedures: Labs Laboratory Tests 07/30/18 11:02: Glucometer 311H 07/30/18 16:47: Glucometer 301H 07/30/18 20:33: Glucometer 346H 07/31/18 06:10: White Blood Count 11.4H, Red Blood Count 4.22L, Hemoglobin 12.1L, Hematocrit 36L , Mean Corpuscular Volume 86, Mean Corpuscular Hemoglobin 29, Mean Corpuscular Hemoglobin Concent 34, Red Cell Distribution Width 12.9, Platelet Count 238, Mean Platelet Volume 10.7H, Neutrophils (%) (Auto) 84H, Lymphocytes (%) (Auto) 9L, Monocytes (%) (Auto) 7, Eosinophils (%) (Auto) 0, Basophils (%) (Auto) 0, Neutrophils # (Auto) 9.6H, Lymphocytes # (Auto) 1.0, Monocytes # (Auto) 0.8, Eosinophils # (Auto) 0.0, Basophils # (Auto) 0.0, Sodium Level 138, Potassium Level 4.2, Chloride Level 102, Carbon Dioxide Level 27, Anion Gap 9, Blood Urea Nitrogen 29H, Creatinine 0.85, Estimat Glomerular Filtration Rate > 60, BUN/ Creatinine Ratio 34, Glucose Level 272H, Calcium Level 8.9, Corrected Calcium 9.3, Total Bilirubin 0.7, Aspartate Amino Transf (AST/SGOT) 15, Alanine Aminotransferase (ALT/SGPT) 24, Alkaline Phosphatase 56, Total Protein 5.9L, Albumin 3.5 07/31/18 06:11: Glucometer 225H Laboratory Tests 07/31/18 06:10 A/P: Assessment: Acute resp failure in late June and early July 2018, probably due to aspiration pneumonia, now resolved Probable COPD Acute renal failure in late June and early July 2018 - resolved Echo of 07/23/18: LVEF 60-65%, mild conc LVH, grade 1 max dysfunction LBBB DM Chronic narcotic use d/t chronic back pain Symptoms of bilat leg claudication Plan: * I had a detailed discussion with him * Focus of CV management currently is on risk factor mod; this was discussed and advised * Does have risk factors for CAD and symptoms of leg claudication. Cor and leg circ w/u is recommended after stabilization of current issues (post discharge) RAMON JOYCE MD FACP FAC CCDS July 31, 2018 09:48
[2018-07-31] MEDS: predniSONE 20 MG TAB PO SCH (09:58)
[2018-07-31] MEDS: FLUTICASONE NASAL SPRAY (FLONASE) 16 GM BTL NS SCH (10:15)
--- NOTE | 2018-07-31 10:19 | NUR ---
Albrecht catheter and IJ removed without difficulty.
--- NOTE | 2018-07-31 10:34 | Pulmonary Progress Note ---
Subjective Time Seen by a Provider: 10:33 Subjective/Events-last exam Pt is doing much better. Sepsis Event Evaluation Height, Weight, BMI Height: 6'1.00" Weight: 265lbs. 8.0oz. 120.539283lx; 35.0 BMI Method:Stated Exam Exam Vital Signs Date Time Temp Pulse Resp B/P (MAP) Pulse Ox O2 Delivery O2 Flow Rate FiO2 07/31/18 08:37 98.7 94 20 130/71 (90) 96 Nasal Cannula 3.00 07/31/18 05:05 99.0 80 22 184/91 (122) 97 Nasal Cannula 3.00 07/31/18 02:14 90 Nasal Cannula 3.00 07/30/18 23:01 90 Nasal Cannula 4.00 07/30/18 20:55 Nasal Cannula 3.00 07/30/18 18:47 92 Nasal Cannula 07/30/18 18:46 Nasal Cannula 4.00 07/30/18 17:59 99.0 85 20 138/73 (94) 95 Nasal Cannula 3.00 07/30/18 17:01 Nasal Cannula 3.00 I & O 07/31/18 07:00 Intake Total 2000 ml Output Total 2200 ml Balance -200 ml Height & Weight Height: 6'1.00" Weight: 265lbs. 8.0oz. 120.679623sx; 35.0 BMI Method:Stated General Appearance: No Apparent Distress, WD/WN, Chronically ill HEENT: PERRL/EOMI, Normal ENT Inspection, Pharynx Normal, Moist Mucous Membranes Neck: Full Range of Motion, Normal Inspection, Non Tender, Supple Respiratory: Chest Non Tender, Lungs Clear, Normal Breath Sounds, No Accessory Muscle Use, No Respiratory Distress, Decreased Breath Sounds Cardiovascular: Regular Rate, Rhythm, No Edema, No Gallop, No JVD, No Murmur Extremity: Normal Capillary Refill, Normal Inspection, Normal Range of Motion, Non Tender, No Calf Tenderness, No Pedal Edema Neurologic/Psychiatric: Alert, Oriented x3, No Motor/Sensory Deficits ( generalized weakness all extremities), Normal Mood/Affect Skin: Normal Color, Warm/Dry Lymphatic: No Adenopathy Results Lab Laboratory Tests 07/31/18 06:10 Assessment/Plan Assessment/Plan Probable COPD -Will need out pt testing -CO2 45 on admission S/p Acute respiratory failure requiring ventilator-- much improved -S/p bronchoscopy -Influ is neg -MRSA swab is negative -ABG - reviewed -Start SVNs Duoneb Q4 Sepsis - improved -MRSA swab is negative -Busby cultures pending -CT of abd/pelvis is neg Acute MS changes -- possibly from home narcotics/benzos LBBB - per EKG -cardiology -Echocardiogram - LVEF 60-65%, mild conc LVH, grade 1 diastolic dysfunction Acute on chronic renal failure- improving -IVF -monitor close Metabolic lactic acidosis - secondary to sepsis r/o abdominal sepsis DM -SSI - MARCI Lopez DO July 31, 2018 10:34
--- NOTE | 2018-07-31 11:30 | NUR ---
This RN asked Dr. Shrestha for clarification on Lisinopril orders- 20 MG PO BID and 2.5 MG PO daily. 20 MG PO BID is home dose. Was taking 2.5 MG PO daily on acute floor. Dr. Shrestha states to check with Dr. Jensen. Dr. Jensen paged X3 with no return call. Malcolm paged X1 with no return call. Dr. Shrestha informed. Hold both doses of Lisinopril per Dr. Shrestha.
[2018-07-31] MEDS: ENOXAPARIN 40 MG/0.4 ML (LOVENOX) SYR SC SCH (11:57)
--- NOTE | 2018-07-31 12:02 | Physical Therapy Daily Note ---
PT Daily Note-Current Subjective Pt sitting in W/C upon arrival. Pt agrees to PT but reports having "an incident " earlier this morning and is a little fatigued. Mental Status Patient Orientation: Person, Place, Situation Transfers Therapy Code Descriptions/Definitions Functional [place] Measure: 0=Not Assessed/NA 4=Minimal Assistance 1=Total Assistance 5=Supervision or Setup 2=Maximal Assistance 6=Modified [place] 3=Moderate Assistance 7=Complete [place] Therapy Quality Codes: 6 Independent with activity with or without an assistive device 5 Patient requires set up or clean up by helper. Patient completes activity by themselves 4 Supervision or touching assist (CGA). [place] provide cues , steadying assist 3 The helper provides less than half the effort to complete the activity 2 The helper provides more than half the effort to complete the activity 1 Dependent. The helper does all the effort to complete an activity 7 Patient refused to complete or attempt activity 9 The patient did not perform the activity before the current illness or injury 88 Not attempted due to Medical conditions or safety concerns Sit to/from Stand: 4 Sit to Stand (QC): 4 Weight Bearing Right Lower Extremity: Right Weight Bearing/Tolerated Left Lower Extremity: Left Weight Bearing/Tolerated Wheelchair Training Does the Pt Use a Wheelchair?: Yes Wheelchair Distance: 3=150 ft Distance: 150' Wheelchair Level of Assist: 5 Wheel 50 ft with 2 turns (QC): 5 Wheel 150 ft (QC): 5 Type of Wheelchair: Manual Exercises NuStep Minutes: 15 NuStep Workload: 4 Treatments Pt propels W/C in hallway. Pt transfers from W/C to NuStep using SPT. Pt uses NuStep for 15m at WL 4. Pt transfers to W/C and propels in hallway before returning to room to eat lunch and rest at end of tx. Pt has all needs met at end of tx. Assessment Current Status: Fair Progress Pt is not very motivated to complete tx, RISK MANAGEMENT SPECIALIST encourages. PT Short Term Goals Short Term Goals Time Frame: August 06, 2018 Transfers (B,C,W/C) (FIM): 5 Gait (FIM): 5 Gait Distance Comment: 200' Gait Level of Assist: 5 Gait Assistive Device: FWW PT Sap Bpc Developer Goals Alf Goals PT Sap Bpc Developer Goals Time Frame: August 20, 2018 Transfers (B,C,W/C) (FIM): 6 Sit to Lying (QC): 6 Lying-Sitting on Side/Bed(QC): 6 Sit to Stand (QC): 6 Rollin Roll Left to Right (QC): 6 Chair/Fdv-wq-Dovav Xfer(QC): 6 Car Transfer (QC): 6 Gait (FIM): 6 Distance: 300' Walk 10 feet (QC): 6 Walk 10ft-Uneven Surface(QC): 6 Walk 50ft with 2 Turns (QC): 6 Walk 150 ft (QC): 6 Gait Level of Assist: 6 Gait Assistive Device: FWW Stairs (FIM): 2 # of Steps: 4 1 Step (curb) (QC): 4 4 Steps (QC): 4 Stairs Level Of Assist: 5 PT Plan Problem List Problem List: Activity Tolerance, Functional Strength, Gait Treatment/Plan Treatment Plan: Continue Plan of Care Treatment Plan: Bed Mobility, Education, Functional Activity Imani, Functional Strength, Group Therapy, Gait, Safety, Therapeutic Exercise, Transfers Treatment Duration: August 20, 2018 Frequency: At least 5 of 7 days/Wk (IRF) Estimated Hrs Per Day: 1.5 hours per day Patient and/or Family Agrees t: Yes Safety Risks/Education Patient Education: Transfer Techniques, Correct Positioning, W/C Management, Safety Issues Teaching Recipient: Patient Teaching Methods: Discussion Response to Teaching: Verbalize Understanding Time/GCodes Time In: 1100 Time Out: 1145 Total Billed Treatment Time: 45 Total Billed Treatment 1, WCH (20m), EX (15m) & FA (10m) G Codes Necessary: THERON Neves RISK MANAGEMENT SPECIALIST July 31, 2018 12:02
[2018-07-31] MEDS: RT-ADVAIR HFA 115/21 MCG PER PUFF IH SCH ×2 (12:43→21:58)
--- NOTE | 2018-07-31 14:16 | Occupational Ther Daily Note ---
OT Current Status-Daily Note Subjective Pt sitting in w/c with RN present, agrees to therapy. Pt has nasal cannula in place, but it is not connected to O2 and sats are 96%. RN reports to leave off and monitor. Pt's oxygen sats are >95% throughout treatment on room air. Mental Status/Objective Therapy Code Descriptions/Definitions Functional [place] Measure: 0=Not Assessed/NA 4=Minimal Assistance 1=Total Assistance 5=Supervision or Setup 2=Maximal Assistance 6=Modified [place] 3=Moderate Assistance 7=Complete [place] ADL-Treatment Pt requests to shower this morning. To restroom via w/c. Transfer w/c to [facility] [place] toilet with min assist. Pt unable to have a BM at this time. Transfer to shower bench with minimal assistance. Doffed shirt without assist. Doffed pants with min assist and socks and shoes with SBA. Seated bathing completed using hand held shower. Upper body bathing completed with SBA. Pt able to wash bilateral LE and trini area with SBA. Min assist to wash buttocks. Don pullover shirt with minimal assistance to pull down in the back. Pt able to thread bilateral LE into shorts. Stood with minimal assistance for pant hike. Donned bilateral socks and shoes with SBA. Grooming tasks completed seated at sink. Pt brushed teeth and combed hair with SBA. Increased time for ADL tasks. Pt sitting in w/c with needs met and visitors present after session. Therapy Code Descriptions/Definitions Functional [place] Measure: 0=Not Assessed/NA 4=Minimal Assistance 1=Total Assistance 5=Supervision or Setup 2=Maximal Assistance 6=Modified [place] 3=Moderate Assistance 7=Complete [place] Therapy Quality Codes: 6 Independent with activity with or without an assistive device 5 Patient requires set up or clean up by helper. Patient completes activity by themselves 4 Supervision or touching assist (CGA). [place] provide cues , steadying assist 3 The helper provides less than half the effort to complete the activity 2 The helper provides more than half the effort to complete the activity 1 Dependent. The helper does all the effort to complete an activity 7 Patient refused to complete or attempt activity 9 The patient did not perform the activity before the current illness or injury 88 Not attempted due to Medical conditions or safety concerns Grooming (FIM): 5 Oral Hygiene (QC): 4 Bathing (FIM): 4 Shower/Bathe Self (QC): 3 Upper Body (FIM): 4 Upper Body Dressing (QC): 3 Lower Body Dressing (FIM): 4 Lower Body Dressing (QC): 3 Toilet/Commode Transfer (FIM): 4 Toilet Transfer (QC): 3 Shower Transfer(FIM): 4 OT Short Term Goals Short Term Goals Time Frame: August 06, 2018 Grooming(FIM): 5 Bathing(FIM): 4 Lower Body Dressing(FIM): 4 Toileting(FIM): 4 Transfers (B,C,W/C) (FIM): 5 Toilet/Commode Transfer(FIM): 4 Shower Transfer(FIM): 4 Additional Short Term Goals: 1-Demonstrate ADL Tasks, 2-Verbalize Understanding , 3-ImproveStrength/Imani 1=Demonstrate adherence to instructed precautions during ADL tasks. 2=Patient will verbalize/demonstrate understanding of assistive devices/ modifications for ADL. 3=Patient will improve strength/tolerance for activity to enable patient to perform ADL's. OT Rn Surgical Goals Usp Goals Time Frame: August 20, 2018 Eating (FIM): 6 Eating (QC): 6 Groomin Oral Hygiene (QC): 6 Bathing(FIM): 5 Shower/Bathe Self (QC): 5 Upper Body Dressing(FIM): 6 Upper Body Dressing (QC): 6 Lower Body Dressing(FIM): 6 Lower Body Dressing (QC): 6 On/Off Footwear (QC): 6 Toileting(FIM): 6 Toileting Hygiene (QC): 6 Toilet/Commode Transfer(FIM): 6 Toilet/Commode Transfer (QC): 6 Shower Transfer(FIM): 5 Additional Goals: 1-Demonstrate ADL Tasks, 2-Verbalize Understanding, 3- ImproveStrength/Imani 1=Demonstrate adherence to instructed precautions during ADL tasks. 2=Patient will verbalize/demonstrate understanding of assistive devices/ modifications for ADL. 3=Patient will improve strength/tolerance for activity to enable patient to perform ADL's. OT Education/Plan Discharge Recommendations Plan/Recommendations: Continue POC Treatment Plan/Plan of Care Patient would benefit from OT for education, treatment and training to promote independence in ADL's, mobility, safety and/or upper extremity function for ADL' s. Plan of Care: ADL Retraining, Functional Mobility, Group Exercise/Act as Ind, UE Funct Exercise/Act Treatment Duration: August 20, 2018 Frequency: At least 5 of 7 days/Wk (IRF) Estimated Hrs Per Day: 1.5 hours per day Agreement: Yes Rehab Potential: Fair Time/GCodes Start Time: 10:00 Stop Time: 11:00 Total Time Billed (hr/min): 60 Billed Treatment Time 1 visit, ADLx4(60minutes) HAMLET MORRIS OT July 31, 2018 14:16
--- NOTE | 2018-07-31 14:35 | Occupational Ther Daily Note ---
OT Current Status-Daily Note Subjective Pt sitting in w/c, agrees to treatment. Mental Status/Objective Therapy Code Descriptions/Definitions Functional [place] Measure: 0=Not Assessed/NA 4=Minimal Assistance 1=Total Assistance 5=Supervision or Setup 2=Maximal Assistance 6=Modified [place] 3=Moderate Assistance 7=Complete [place] ADL-Treatment Therapy Code Descriptions/Definitions Functional [place] Measure: 0=Not Assessed/NA 4=Minimal Assistance 1=Total Assistance 5=Supervision or Setup 2=Maximal Assistance 6=Modified [place] 3=Moderate Assistance 7=Complete [place] Therapy Quality Codes: 6 Independent with activity with or without an assistive device 5 Patient requires set up or clean up by helper. Patient completes activity by themselves 4 Supervision or touching assist (CGA). [place] provide cues , steadying assist 3 The helper provides less than half the effort to complete the activity 2 The helper provides more than half the effort to complete the activity 1 Dependent. The helper does all the effort to complete an activity 7 Patient refused to complete or attempt activity 9 The patient did not perform the activity before the current illness or injury 88 Not attempted due to Medical conditions or safety concerns Other Treatment Pt performed w/c mobility to therapy gym with SBA. Arm bike x10 minutes to increase overall strength and activity tolerance needed for functional tasks. Pt completed task with minimal resistance and steady pace. No rest breaks needed. Pt completed fine motor task with nuts and bolts with 1# weights in place on bilateral UE to increase strength and coordination/manipulation skills. Pt completed activity with increased time. Pt sitting in w/c with PT present after session. OT Short Term Goals Short Term Goals Time Frame: August 06, 2018 Grooming(FIM): 5 Bathing(FIM): 4 Lower Body Dressing(FIM): 4 Toileting(FIM): 4 Transfers (B,C,W/C) (FIM): 5 Toilet/Commode Transfer(FIM): 4 Shower Transfer(FIM): 4 Additional Short Term Goals: 1-Demonstrate ADL Tasks, 2-Verbalize Understanding , 3-ImproveStrength/Imani 1=Demonstrate adherence to instructed precautions during ADL tasks. 2=Patient will verbalize/demonstrate understanding of assistive devices/ modifications for ADL. 3=Patient will improve strength/tolerance for activity to enable patient to perform ADL's. OT Mcc Goals Mcc Goals Time Frame: August 20, 2018 Eating (FIM): 6 Eating (QC): 6 Groomin Oral Hygiene (QC): 6 Bathing(FIM): 5 Shower/Bathe Self (QC): 5 Upper Body Dressing(FIM): 6 Upper Body Dressing (QC): 6 Lower Body Dressing(FIM): 6 Lower Body Dressing (QC): 6 On/Off Footwear (QC): 6 Toileting(FIM): 6 Toileting Hygiene (QC): 6 Toilet/Commode Transfer(FIM): 6 Toilet/Commode Transfer (QC): 6 Shower Transfer(FIM): 5 Additional Goals: 1-Demonstrate ADL Tasks, 2-Verbalize Understanding, 3- ImproveStrength/Imani 1=Demonstrate adherence to instructed precautions during ADL tasks. 2=Patient will verbalize/demonstrate understanding of assistive devices/ modifications for ADL. 3=Patient will improve strength/tolerance for activity to enable patient to perform ADL's. OT Education/Plan Discharge Recommendations Plan/Recommendations: Continue POC Treatment Plan/Plan of Care Patient would benefit from OT for education, treatment and training to promote independence in ADL's, mobility, safety and/or upper extremity function for ADL' s. Plan of Care: ADL Retraining, Functional Mobility, Group Exercise/Act as Ind, UE Funct Exercise/Act Treatment Duration: August 20, 2018 Frequency: At least 5 of 7 days/Wk (IRF) Estimated Hrs Per Day: 1.5 hours per day Agreement: Yes Rehab Potential: Fair Time/GCodes Start Time: 13:00 Stop Time: 13:30 Total Time Billed (hr/min): 30 Billed Treatment Time 1 visit, EXx2(30minutes) HAMLET MORRIS OT July 31, 2018 14:35
--- NOTE | 2018-07-31 15:24 | NUR ---
Incontinent of urine (large amount). Patient states that he "spilled the urinal".
--- NOTE | 2018-07-31 15:49 | NUR ---
FSBS is 60. Dr. Shrestha notified. Orders to hold scheduled insulin for the rest of today. Give SSI (A) NovoLog today. Tomorrow, start NovoLog- 10 units before meals and Levemir- 15 units at night. Just scheduled insulin tomorrow, DC SS.
--- NOTE | 2018-07-31 15:49 | Physical Therapy Daily Note ---
PT Daily Note-Current Subjective Pt sitting in W/C upon arrival. Pt agrees to PT. Mental Status Patient Orientation: Person, Confused, Place Transfers Therapy Code Descriptions/Definitions Functional [place] Measure: 0=Not Assessed/NA 4=Minimal Assistance 1=Total Assistance 5=Supervision or Setup 2=Maximal Assistance 6=Modified [place] 3=Moderate Assistance 7=Complete [place] Therapy Quality Codes: 6 Independent with activity with or without an assistive device 5 Patient requires set up or clean up by helper. Patient completes activity by themselves 4 Supervision or touching assist (CGA). [place] provide cues , steadying assist 3 The helper provides less than half the effort to complete the activity 2 The helper provides more than half the effort to complete the activity 1 Dependent. The helper does all the effort to complete an activity 7 Patient refused to complete or attempt activity 9 The patient did not perform the activity before the current illness or injury 88 Not attempted due to Medical conditions or safety concerns [place] Sit to/from Stand: 4 Sit to Stand (QC): 4 Weight Bearing Right Lower Extremity: Right Weight Bearing/Tolerated Left Lower Extremity: Left Weight Bearing/Tolerated Gait Training Does the Patient Walk?: Yes Gait (FIM): 2 Distance (FIM): 1=up to 49 ft Distance: 6' x4 Walk 10 feet (QC): 5 Gait Level of Assist: 5 Gait Persons Needed: 1 Gait Assistive Device: Parallel Bars Pt has slow vannessa & crepitus with walking. Pt reports needing to rest after ~ 12'. Wheelchair Training Does the Pt Use a Wheelchair?: Yes Wheelchair (FIM): 5 Wheelchair Distance: 3=150 ft Distance: 150' Wheelchair Level of Assist: 5 Wheel 50 ft with 2 turns (QC): 5 Wheel 150 ft (QC): 5 Type of Wheelchair: Manual Exercises Seated Therapy Exercises: Ankle pumps, Long arc quads, Hip flexion, Kicking activity Seated Reps: 15 Treatments Pt propels W/C in hallway. Pt completes Seated Ex then short RB. Pt completes sit to stand practice at //bars and ambulates them x4. Pt propels W/C back to room at end of tx. Pt transfers from W/C to EOB using SPT at [facility]. Pt has all needs met. Assessment Current Status: Fair Progress Pt fatigues easily and does not demonstrate much motivation to progress. PT Short Term Goals Short Term Goals Time Frame: August 06, 2018 Transfers (B,C,W/C) (FIM): 5 Gait (FIM): 5 Gait Distance Comment: 200' Gait Level of Assist: 5 Gait Assistive Device: FWW Wheelchair Distance: 150' PT Staple Shear Operator Goals Staple Shear Operator Goals PT Staple Shear Operator Goals Time Frame: August 20, 2018 Transfers (B,C,W/C) (FIM): 6 Sit to Lying (QC): 6 Lying-Sitting on Side/Bed(QC): 6 Sit to Stand (QC): 6 Rollin Roll Left to Right (QC): 6 Chair/Zkx-uz-Dylxb Xfer(QC): 6 Car Transfer (QC): 6 Gait (FIM): 6 Distance: 300' Walk 10 feet (QC): 6 Walk 10ft-Uneven Surface(QC): 6 Walk 50ft with 2 Turns (QC): 6 Walk 150 ft (QC): 6 Gait Level of Assist: 6 Gait Assistive Device: FWW Stairs (FIM): 2 # of Steps: 4 1 Step (curb) (QC): 4 4 Steps (QC): 4 Stairs Level Of Assist: 5 PT Plan Problem List Problem List: Activity Tolerance, Functional Strength, Safety, Balance, Gait, Transfer Treatment/Plan Treatment Plan: Continue Plan of Care Treatment Plan: Bed Mobility, Education, Functional Activity Imani, Functional Strength, Group Therapy, Gait, Safety, Therapeutic Exercise, Transfers Treatment Duration: August 20, 2018 Frequency: At least 5 of 7 days/Wk (IRF) Estimated Hrs Per Day: 1.5 hours per day Patient and/or Family Agrees t: Yes Safety Risks/Education Patient Education: Gait Training, Transfer Techniques, Correct Positioning, W/ C Management, Safety Issues Teaching Recipient: Patient Teaching Methods: Discussion Response to Teaching: Verbalize Understanding Time/GCodes Time In: 1330 Time Out: 1400 Total Billed Treatment Time: 30 Total Billed Treatment 1, WCH (15m) & EX (15m) G Codes Necessary: THERON Neves PTA July 31, 2018 15:48
--- NOTE | 2018-07-31 16:57 | NUR ---
Up to the BR. Voided 200mls. Post void bladder scan done and showing 45mls.
[2018-07-31 17:15] VITALS: BP 129/67
[2018-07-31] MEDS: AMITRIPTYLINE 50 MG (ELAVIL) TAB PO SCH (21:18)
[2018-07-31] MEDS: CYCLOBENZAPRINE 10 MG (FLEXERIL) TAB PO SCH (21:18)
[2018-08-01] MEDS: RT-ALBUTEROL/IPRATROPIUM 3 ML (DUONEB) VIAL INH SCH ×6 (01:55→22:36)
[2018-08-01 05:11] VITALS: BP 138/64
[2018-08-01] MEDS: predniSONE 20 MG TAB PO SCH (06:40)
[2018-08-01] MEDS: TROSPIUM 20 MG (SANCTURA) TAB PO SCH ×2 (06:40→17:40)
[2018-08-01] MEDS: PANTOPRAZOLE 40 MG (PROTONIX) TAB PO SCH (06:40)
[2018-08-01] MEDS: RT-ADVAIR HFA 115/21 MCG PER PUFF IH SCH ×2 (06:56→19:26)
[2018-08-01] MEDS: inSUlin ASPART (NovoLOG) 1 UNIT/0.01 ML (CHARGE PER UNIT) SC SCH ×3 (08:32→17:41)
--- NOTE | 2018-08-01 08:56 | PM&R Progress Note ---
Subjective HPI/CC On Admission Date Seen by Provider: August 01, 2018 Time Seen by Provider: 08:30 Chief complaint: Severe Weakness HPI: This is a 62yoWM clinic Pt of Dr. Nuno who presents to inpatient rehab due to sever myopathy due to critical illness and intubation last week after septic shock, acute kidney injury, and hyperkalemia. He was able to be extubated under Dr. Deal's expertise last Sunday and was well enough to move down to fourth floor to continue IV antibiotics of Meropenem along with supportive care and oxygen. He doesn't use oxygen at home. He is very weak, his prior level of functioning was independent with ADLs and ambulation without assistive devices and currently he is participating in therapy but overall very weak and requiring inpatient rehab. His bowels are moving and urinary catheter will be discontinued upon admission to rehab. Subjective/Events-last exam Blood sugar remained low yesterday so I over hauled his insulin regimen and decreased significantly Has some swelling in his legs I will place amador jones Denies any SOB at this current time Maintain on oxygen but he doesn't use that at home Bowel regimen maintained with good bowel function Bladder function returned back to normal after farooq catheter discontinued Participating in all therapies Gaining independence with ADLs Conferred with RN Participating in therapy Hypoglycemia noted since this is a controlled diet environment so will decrease insulin Review of Systems General: Fatigue Pulmonary: Dyspnea Musculoskeletal: leg pain Objective Exam Vital Signs Vital Signs Date Time Temp Pulse Resp B/P (MAP) Pulse Ox O2 Delivery O2 Flow Rate FiO2 08/01/18 19:25 95 High Flow N/C 2.00 08/01/18 15:35 98.4 79 16 123/78 (93) Capillary Refill : General Appearance: No Apparent Distress, WD/WN, Chronically ill HEENT: PERRL/EOMI, Normal ENT Inspection, Pharynx Normal, Moist Mucous Membranes Neck: Full Range of Motion, Normal Inspection, Non Tender, Supple Respiratory: Chest Non Tender, Lungs Clear, Normal Breath Sounds, No Accessory Muscle Use, No Respiratory Distress, Decreased Breath Sounds Cardiovascular: Regular Rate, Rhythm, No Edema, No Gallop, No JVD, No Murmur Gastrointestinal: Normal Bowel Sounds, No Organomegaly, No Pulsatile Mass, Non Tender, Soft Back: Normal Inspection, No CVA Tenderness, No Vertebral Tenderness Extremity: Normal Capillary Refill, Normal Inspection, Normal Range of Motion, Non Tender, No Calf Tenderness, No Pedal Edema Neurologic/Psychiatric: Alert, Oriented x3, No Motor/Sensory Deficits ( generalized weakness all extremities), Normal Mood/Affect Skin: Normal Color, Warm/Dry Lymphatic: No Adenopathy Results/Procedures Lab Patient resulted labs reviewed. FIM Transfers Therapy Code Descriptions/Definitions Functional [place] Measure: 0=Not Assessed/NA 4=Minimal Assistance 1=Total Assistance 5=Supervision or Setup 2=Maximal Assistance 6=Modified [place] 3=Moderate Assistance 7=Complete [place] Therapy Quality Codes: 6 Independent with activity with or without an assistive device 5 Patient requires set up or clean up by helper. Patient completes activity by themselves 4 Supervision or touching assist (CGA). [place] provide cues , steadying assist 3 The helper provides less than half the effort to complete the activity 2 The helper provides more than half the effort to complete the activity 1 Dependent. The helper does all the effort to complete an activity 7 Patient refused to complete or attempt activity 9 The patient did not perform the activity before the current illness or injury 88 Not attempted due to Medical conditions or safety concerns Mental Status/Objective Comprehension: 5 Expression: 5 Social Interaction: 6 Problem Solvin Memory: 4 ADL-Treatment Groomin Oral Hygiene (QC): 4 Bathin Shower/Bathe Self (QC): 3 Upper Extremity Dressin Upper Body Dressing (QC): 3 Lower Extremity Dressin Lower Body Dressing (QC): 3 On/Off Footwear (QC): 2 Toilet/Commode Transfer: 4 Toilet Transfer (QC): 3 Shower: 4 Assessment/Plan Assessment and Plan Assess & Plan/Chief Complaint Assessment: Myopathy Vertigo acute on chronic Hypoglycemia Plan: IRF protocol Return to home at [place] with family Monitor sugars Home meds Hold long-acting narcs Decrease insulin due to hypoglycemia Monitor vertigo (1) Myopathy (2) Chronic back pain (3) Severe sepsis (4) Essential (primary) hypertension (5) Normocytic anemia (6) Thrombocytopenia (7) Acute renal failure (8) Insulin dependent diabetes mellitus (9) Volume depletion (10) COPD (chronic obstructive pulmonary disease) (11) Acute hyperkalemia (12) Acute kidney injury (13) Acute respiratory failure with hypoxemia (14) Altered mental status (15) Left bundle branch block (LBBB) determined by electrocardiography ANGÉLICA DAVIS DO August 01, 2018 08:56
--- NOTE | 2018-08-01 09:17 | NUR ---
SWISS TYPE SCREW MACHINE OPERATOR met with patient to review team conference summary. As patient just recently admitted and requires min assist for all activities, team has recommended patient be reevaluated at next team conference on 515. Patient is agreeable to this. SWISS TYPE SCREW MACHINE OPERATOR also received contact from patient's daughter, Federico in regards to progress and discharge planning. SWISS TYPE SCREW MACHINE OPERATOR provided update to [place]. [place] also inquired about completion of advanced directive, SWISS TYPE SCREW MACHINE OPERATOR will present documents to patient and encourage completion. SWISS TYPE SCREW MACHINE OPERATOR continue to follow for additional needs.
--- NOTE | 2018-08-01 09:25 | Speech Therapy Daily Note ---
Speech Daily Progress Note Subjective Date Seen by Provider: August 01, 2018 Time Seen by Provider: 00:30 The patient is progressing every day. He appeared to be lucid throughout the session today. Assessment Assessment Current Status: Good Progress Treatment Plan Continue Plan of Care Communication Comprehension: 5 Expression: 5 Social Cognition Social Interaction: 6 Problem Solvin Memory: 4 Speech Short Term Goals Short Term Goals Short Term Goals 1) The patient will tolerate the least restrictive diet level without s/s of aspiration at 90% or greater. 2) The patient will utilize compensatory strategies as trained with 90% or greater with minimal cues. 3) The patient will be able to recall new information related to himself with 90 % or greater given minimal cues. 4) The patient will be able to follow directions for safety with 90% or greater given minimal cues. Speech Halfway Goals It Operations Manager Goals The patient will maintain adequate nutrition/hydration via safe effective swallow function. The patient will improve his safety and independence in order to return home. Speech-Plan Patient/Family Goals Patient/Family Goals: The patient plans to return home with his significant other post rehab. Treatment Plan Speech Therapy Treatment Plan: Continue Plan of Care The patient is progressing well with skilled ST services. Treatment Duration: August 09, 2018 Frequency: 5 times per week Estimated Hrs Per Day: .5 hour per day Rehab Potential: Fair Barriers to Learning: Memory and problem solving deficits Pt/Family Agrees to Plan: Yes Safety Risks/Education Teaching Recipient: Patient Teaching Methods: Discussion Response to Teaching: Verbalize Understanding Education Topics Provided: Safety within his room and communication of wants/needs. Time Speech Therapy Time In: 08:30 Speech Therapy Time Out: 09:00 Total Billed Time: 30 Billed Treatment Time [address] August 01, 2018 09:25
[2018-08-01] MEDS: amLODIPine 10 MG (NORVASC) TAB PO SCH (09:35)
[2018-08-01] MEDS: meTOproloL SUCCINATE 50 MG (TOPROL XL) TAB PO SCH (09:35)
[2018-08-01] MEDS: GABAPENTIN 600 MG (NEURONTIN) TAB PO SCH ×3 (09:35→20:40)
[2018-08-01] MEDS: VITAMIN D3 1,000 UNITS (CHOLECALCIFEROL) TABLET PO SCH (09:36)
[2018-08-01] MEDS: ETODOLAC 300 MG (LODINE) CAP PO SCH ×2 (09:36→20:40)
[2018-08-01] MEDS: MECLIZINE 25 MG (ANTIVERT) TAB PO SCH ×4 (09:37→20:40)
[2018-08-01] MEDS: GLIMEPIRIDE 4 MG (AMARYL) TAB PO SCH ×2 (09:37→20:40)
[2018-08-01] MEDS: FLUTICASONE NASAL SPRAY (FLONASE) 16 GM BTL NS SCH (09:39)
--- NOTE | 2018-08-01 11:41 | Progress Note-Cardiology ---
Cardiology SOAP Progress Note Subjective: Notes gen weakness and malaise and tiredness Does not report cp or palp Has mod exertional shortness of breath Objective: I&O/Vital Signs 08/01/18 08/01/18 08/01/18 01:58 05:11 06:56 Temp 97.7 Pulse 68 Resp 18 B/P (MAP) 138/64 (88) Pulse Ox 93 94 92 O2 Delivery High Flow N/C Room Air Room Air O2 Flow Rate 2.00 08/01/18 00:00 Intake Total 520 ml Output Total 1250 ml Balance -730 ml Weight (Pounds): 265 Weight (Ounces): 8.0 Weight (Calculated Kilograms): 120.768862 Constitutional: AAO x 3, well-developed, well-nourished Respiratory: other (fair bilat air entry, diminished at the bases, prolonged exp phase) Cardiovascular: regular rate-rhythm, S1 and S2, systolic murmur (soft JESUS at card base) Gastrointestional: No tender; soft; No guarding, No rebound; audible bowel sounds Extremities: No clubbing, No cyanosis, No significant edema Neurologic/Psychiatric: oriented x 3, grossly intact, power is 5/5 both on sides Skin: No rash on exposed areas, No ulcerations on exposed areas Results/Procedures: Labs Laboratory Tests 07/31/18 15:29: Glucometer 60*L 07/31/18 16:03: Glucometer 82 07/31/18 20:54: Glucometer 240H 07/31/18 21:55: Glucometer 235H 08/01/18 06:39: Glucometer 157H 08/01/18 11:02: Glucometer 198H Laboratory Tests 07/31/18 06:10 A/P: Assessment: Acute resp failure in late June and early July 2018, probably due to aspiration pneumonia, now resolved Probable COPD Acute renal failure in late June and early July 2018 - resolved Echo of 07/23/18: LVEF 60-65%, mild conc LVH, grade 1 max dysfunction LBBB DM Chronic narcotic use d/t chronic back pain Symptoms of bilat leg claudication Plan: * Focus of CV management currently is on risk factor mod; this was discussed and advised * Does have risk factors for CAD and symptoms of leg claudication. Cor and leg circ w/u is recommended after stabilization of current issues (post discharge) RAMON JOYCE MD FACP FACC CCDS August 01, 2018 11:41
[2018-08-01] MEDS: ENOXAPARIN 40 MG/0.4 ML (LOVENOX) SYR SC SCH (12:50)
--- NOTE | 2018-08-01 13:22 | Occupational Ther Daily Note ---
OT Current Status-Daily Note Subjective pt laying in bed upon OT arrival inno apparent distress. pt agreed to OT TX session with focus on increasing independence with ADLS/ functional transfer and to increase activity tolerance for daily activities. Mental Status/Objective Patient Orientation: Normal For Age Therapy Code Descriptions/Definitions Functional [place] Measure: 0=Not Assessed/NA 4=Minimal Assistance 1=Total Assistance 5=Supervision or Setup 2=Maximal Assistance 6=Modified [place] 3=Moderate Assistance 7=Complete [place] Attachments: Oxygen ADL-Treatment Therapy Code Descriptions/Definitions Functional [place] Measure: 0=Not Assessed/NA 4=Minimal Assistance 1=Total Assistance 5=Supervision or Setup 2=Maximal Assistance 6=Modified [place] 3=Moderate Assistance 7=Complete [place] Therapy Quality Codes: 6 Independent with activity with or without an assistive device 5 Patient requires set up or clean up by helper. Patient completes activity by themselves 4 Supervision or touching assist (CGA). [place] provide cues , steadying assist 3 The helper provides less than half the effort to complete the activity 2 The helper provides more than half the effort to complete the activity 1 Dependent. The helper does all the effort to complete an activity 7 Patient refused to complete or attempt activity 9 The patient did not perform the activity before the current illness or injury 88 Not attempted due to Medical conditions or safety concerns Grooming (FIM): 4 (CGA while standing at sink with intermitted sitting for actviity tolernace) Oral Hygiene (QC): 4 Bathing (FIM): 4 (CGA for safety/ balance when standing. pt only stod to wash buttock but sat for all other bathing locations) Bathing Location: L Arm, R Arm, L Upper Leg, R Upper Leg, L Lower Leg ( including foot), R Lower Leg (including foot), Chest, Abdomen, Buttocks, Perineal Area Shower/Bathe Self (QC): 4 Upper Body (FIM): 5 (SPV for safety/ balance while sitting EOB) Upper Body Dressing (QC): 4 Lower Body Dressing (FIM): 4 (MIN A for LACHELLE hose to be applied. CGA when standing to pull up pants. ) Lower Body Dressing (QC): 4 On/Off Footwear (QC): 4 (misha sock s and shoes. CGA when bending forward for safety/ balance) Toileting (FIM): 4 (CGA while stnading) Toileting Hygiene (QC): 4 Transfers (B, C, W/C) (FIM): 4 (CGA fro stand piviot tranfers from w/c) Toilet/Commode Transfer (FIM): 4 (CGA fro stand piviot tranfers from w/c) Toilet Transfer (QC): 4 Shower Transfer(FIM): 4 noted limited activity tolerance required frequent rest breaks. pt education on energy conservation techniques during ADL task pt verbalized understanding. Other Treatment pt demo ability to self propel w/c approx 100ft to tx gym with SBA for direction / safety. pt demo ability to perform UBE 15 minutes forward with MOD A to increase activity tolerance for daily activity. Education OT Patient Education: Energy conservation, Modified ADL techniques, Progress toward Goal/Update tx plan, Purpose of tx/functional activities, Rehab process, Safety issues, Transfer techniques, Use of adapted equipment Teaching Recipient: Patient Teaching Methods: Demonstration, Discussion Response to Teaching: Verbalize Understanding, Return Demonstration OT Short Term Goals Short Term Goals Time Frame: August 06, 2018 Grooming(FIM): 5 Bathing(FIM): 4 Lower Body Dressing(FIM): 4 Toileting(FIM): 4 Transfers (B,C,W/C) (FIM): 5 Toilet/Commode Transfer(FIM): 4 Shower Transfer(FIM): 4 Additional Short Term Goals: 1-Demonstrate ADL Tasks, 2-Verbalize Understanding , 3-ImproveStrength/Imani 1=Demonstrate adherence to instructed precautions during ADL tasks. 2=Patient will verbalize/demonstrate understanding of assistive devices/ modifications for ADL. 3=Patient will improve strength/tolerance for activity to enable patient to perform ADL's. OT Booth Cashier Goals Booth Cashier Goals Time Frame: August 20, 2018 Eating (FIM): 6 Eating (QC): 6 Groomin Oral Hygiene (QC): 6 Bathing(FIM): 5 Shower/Bathe Self (QC): 5 Upper Body Dressing(FIM): 6 Upper Body Dressing (QC): 6 Lower Body Dressing(FIM): 6 Lower Body Dressing (QC): 6 On/Off Footwear (QC): 6 Toileting(FIM): 6 Toileting Hygiene (QC): 6 Toilet/Commode Transfer(FIM): 6 Toilet/Commode Transfer (QC): 6 Shower Transfer(FIM): 5 Additional Goals: 1-Demonstrate ADL Tasks, 2-Verbalize Understanding, 3- ImproveStrength/Imani 1=Demonstrate adherence to instructed precautions during ADL tasks. 2=Patient will verbalize/demonstrate understanding of assistive devices/ modifications for ADL. 3=Patient will improve strength/tolerance for activity to enable patient to perform ADL's. OT Education/Plan Problem List/Assessment Assessment: Decreased Activ Tolerance, Decreased Safety Aware, Impaired Funct Balance, Impaired I ADL's, Impaired Self-Care Skills Discharge Recommendations Plan/Recommendations: Continue POC Treatment Plan/Plan of Care Treatment,Training & Education: Yes Patient would benefit from OT for education, treatment and training to promote independence in ADL's, mobility, safety and/or upper extremity function for ADL' s. Plan of Care: ADL Retraining, Caregiver Training, Functional Mobility, Group Exercise/Act as Ind, UE Funct Exercise/Act Treatment Duration: August 20, 2018 Frequency: At least 5 of 7 days/Wk (IRF) Estimated Hrs Per Day: 1.5 hours per day Agreement: Yes Rehab Potential: Fair Time/GCodes Start Time: 09:30 Stop Time: 11:00 Billed Treatment Time ADL 75 minutes, 5 units, FA 15 minutes, 1 unit WILI NICOLAS OT August 01, 2018 13:22
--- NOTE | 2018-08-01 13:29 | Physical Therapy Daily Note ---
PT Daily Note-Current Subjective Pt reports he is agreeable to PT session, just finished with OT Pain Numeric Pain Scale: 0-No Pain Appearance Pt sitting in gym in w/c, just finished with OT session. Pt requesting and assisted to bathroom during treatment session At end of session, pt sitting up in recliner, call light, phone and bedside table within reach, getting ready to eat lunch Mental Status Patient Orientation: Person, Place, Time, Eyes Open Attachments: Oxygen (2L/NC) Transfers Therapy Code Descriptions/Definitions Functional [place] Measure: 0=Not Assessed/NA 4=Minimal Assistance 1=Total Assistance 5=Supervision or Setup 2=Maximal Assistance 6=Modified [place] 3=Moderate Assistance 7=Complete [place] Therapy Quality Codes: 6 Independent with activity with or without an assistive device 5 Patient requires set up or clean up by helper. Patient completes activity by themselves 4 Supervision or touching assist (CGA). [place] provide cues , steadying assist 3 The helper provides less than half the effort to complete the activity 2 The helper provides more than half the effort to complete the activity 1 Dependent. The helper does all the effort to complete an activity 7 Patient refused to complete or attempt activity 9 The patient did not perform the activity before the current illness or injury 88 Not attempted due to Medical conditions or safety concerns Transfers (B, C, W/C) (FIM): 5 Sit to/from Stand: 5 pt demonstrating correct technique with transfers, occasional uncontrolled descent into chair and requiring 1-2 attempts to stand with min to mod effort Weight Bearing Right Lower Extremity: Right Weight Bearing/Tolerated Left Lower Extremity: Left Weight Bearing/Tolerated Gait Training Does the Patient Walk?: Yes Gait (FIM): 5 Distance (FIM): 3=150 ft Distance: 280' x2 Gait Level of Assist: 5 Gait Persons Needed: 1 Gait Assistive Device: FWW pt following instruction for proper safe distance from walker, improving step height and length, decreasing dependence of WB on walker Stair Training Stair Training: Handrails/: 2 handrails Stairs (FIM): 4 #of Steps: 8 Stairs: Pattern: Step to Level of Assist: 4 (CGA provided to begin, then SBA) pt following instruction for correct safe technique for stair training. Pt requesting and performing reciprocating pattern ascending stairs but step to gait pattern descending Exercises Standing: Mini squats (x20), Side steps (L and R lat lunges, fwd and retro lunges x10 each ex, each LE) NuStep Minutes: 20 NuStep Workload: 5 (BUE's and BLE's) Treatments gait, transfer, safety, balance, strength, activity tolerance, functional mobility, stairs, fall prevention recovery activities. SPO2 levels maintained 97 -99% throughout tx session Assessment Current Status: Good Progress PT Short Term Goals Short Term Goals Time Frame: August 06, 2018 Transfers (B,C,W/C) (FIM): 5 Gait (FIM): 5 Gait Distance Comment: 200' Gait Level of Assist: 5 Gait Assistive Device: FWW Wheelchair Distance: 150' PT Plating Foreman Goals Halfway Goals PT Halfway Goals Time Frame: August 20, 2018 Transfers (B,C,W/C) (FIM): 6 Sit to Lying (QC): 6 Lying-Sitting on Side/Bed(QC): 6 Sit to Stand (QC): 6 Rollin Roll Left to Right (QC): 6 Chair/Cqn-ux-Acuff Xfer(QC): 6 Car Transfer (QC): 6 Gait (FIM): 6 Distance: 300' Walk 10 feet (QC): 6 Walk 10ft-Uneven Surface(QC): 6 Walk 50ft with 2 Turns (QC): 6 Walk 150 ft (QC): 6 Gait Level of Assist: 6 Gait Assistive Device: FWW Stairs (FIM): 2 # of Steps: 4 1 Step (curb) (QC): 4 4 Steps (QC): 4 Stairs Level Of Assist: 5 PT Plan Treatment/Plan Treatment Plan: Continue Plan of Care Treatment Plan: Bed Mobility, Education, Functional Activity Imani, Functional Strength, Group Therapy, Gait, Safety, Therapeutic Exercise, Transfers Treatment Duration: August 20, 2018 Frequency: At least 5 of 7 days/Wk (IRF) Estimated Hrs Per Day: 1.5 hours per day Patient and/or Family Agrees t: Yes Safety Risks/Education Patient Education: Gait Training, Transfer Techniques, Steps, Safety Issues Teaching Recipient: Patient Teaching Methods: Demonstration, Discussion Response to Teaching: Verbalize Understanding, Return Demonstration Time/GCodes Time In: 1100 Time Out: 1230 Total Billed Treatment Time: 90 Total Billed Treatment 1 visit, FA x 1 unit, GT x 2 units, EX x3 units ANDREW OROZCO PTA August 01, 2018 13:29
[2018-08-01 15:35] VITALS: BP 123/78
--- NOTE | 2018-08-01 17:23 | Individualized Plan of Care ---
Individualized Plan of Care Rehab Nursing IPOC Order Admission Date July 30, 2018 at 10:15 Current Orders Orders Admission Order(Inpt,Obs,Sdc) (07/30/18 10:05) Vital Signs: Per Unit Policy ( 08,16,00 (07/30/18 10:05) Lipstick Molder-Inpt Rehab Con (07/30/18 10:05) Rehab Nursing Orders-Ipoc (07/30/18 10:05) Physical Therapy Rehab Orders (07/30/18 10:05) Occupational Therapy Rehab Ord (07/30/18 10:05) Speech Therapy Rehab Orders (07/30/18 10:05) Intake & Output 06,14,22 (07/30/18 10:05) Precautions (Aru) (07/30/18 10:05) Weekly Weight (Lbs) WEEK (07/30/18 10:05) Rehab-Intensity Of Therapy (07/30/18 10:05) Code/Resuscitation (07/30/18 10:05) Initiate Admission Nursing Pro .admission (07/30/18 10:05) Code/Resuscitation (07/30/18 11:52) Accucheck Achs ACHS (07/30/18 11:52) Iv/Invasive Line Insertion .IV start (07/30/18 11:52) Incentive Spirometry (Nursing) Q2H (07/30/18 11:52) Initiate Admission Nursing Pro .admission (07/30/18 11:52) Initiate/Follow Protocol (07/30/18 11:52) Nursing Communication (Order) (07/30/18 11:52) Sequential Compression Device 08,20 (07/30/18 11:52) Weight Bearing Status (07/30/18 11:52) Automatic Tray (07/30/18 11:52) Albuterol/Ipra Inhalation Soln (Duoneb I (07/30/18 14:00) Enoxaparin Injection (Lovenox Injection) (07/30/18 12:00) Pantoprazole Tablet (Protonix Tablet) (07/31/18 07:00) Amlodipine Tablet (Norvasc Tablet) (07/31/18 09:00) Insulin Aspart (Novolog) (Novolog (Charg (07/30/18 16:00) Insulin Determir (Per Unit) (Levemir (Pe (07/30/18 21:00) Lisinopril Tablet (Zestril Tablet) (07/31/18 09:00) Metoprolol Succinate (Xl) Tab (Toprol Xl (07/31/18 09:00) Methylprednisolone Sod Succ (Solu-Medrol (07/30/18 12:00) Consult Cardiology (07/30/18 11:52) Consult General Surgery (07/30/18 11:52) Consult Pulmonology (07/30/18 11:52) Consult Wound Care Physician (07/30/18 11:52) Irf Req Eval/Acute Rehab (07/30/18 11:52) Mat Initiate Protocol (07/30/18 11:52) Occupational Therapy Order (07/30/18 11:52) Pt Evaluate/Treat Request (07/30/18 11:52) Physical Therapy Oder (07/30/18 11:52) Request Ot Evaluate & Treat (07/30/18 11:52) Request For Dysphagia Services (07/30/18 11:52) Svn Small Volume Nebulizer (07/30/18 11:52) Lipstick Molder Consult (07/30/18 11:52) Vapotherm - Admin Rt Rfs (07/30/18 11:52) Svn Small Volume Nebulizer (07/30/18 11:52) Dys1 Pureed (07/30/18 Lunch) Consult Physician (07/30/18 12:11) Consult Physician (07/30/18 12:11) Consult Physician (07/30/18 12:11) Insulin Aspart (Novolog) (Novolog (Charg (07/30/18 12:45) Insulin Aspart (Novolog) (Novolog (Charg (07/30/18 12:39) Consult Physician (07/30/18 13:12) Cho 60g/M 1snack (16-2000 Momo) (07/30/18 Dinner) Patient Visit (07/30/18 ) Patient Visit (07/30/18 ) Pt Eval Moderate Complexity (07/30/18 ) Exercise Therap, Ea 15 Min (07/30/18 ) Functional Activities, Ea 15 (07/30/18 ) Patient Visit (07/30/18 ) Speech Sound Lang Comp (07/30/18 ) Dysphagia Evaluation Std (07/30/18 ) Cbc With Automated Diff (07/31/18 06:00) Comprehensive Metabolic Panel (07/31/18 06:00) Insulin Determir (Per Unit) (Levemir (Pe (07/31/18 21:00) Methylprednisolone Sod Succ (Solu-Medrol (07/31/18 00:00) Insulin Determir (Per Unit) (Levemir (Pe (07/30/18 22:00) Insulin Aspart (Novolog) (Novolog (Charg (07/31/18 06:00) Amitriptyline Tablet (Elavil Tablet) (07/31/18 21:00) Cyclobenzaprine Tablet (Flexeril Tablet) (07/31/18 21:00) Diazepam Tablet (Valium Tablet) (07/30/18 22:00) Fluticasone Nasal [place] (Flonase Nasal S (07/31/18 09:00) Gabapentin Capsule/Tablet (Neurontin Cap (07/31/18 09:00) Lisinopril Tablet (Zestril Tablet) (07/31/18 09:00) Meclizine Tablet (Antivert Tablet) (07/31/18 09:00) Oxycodone/Apap 5/325mg Tablet (Percocet (07/30/18 22:00) Solifenacin (Non-Formulary) (Vesicare (N (07/31/18 09:00) (Nf) Budesonide/Formoterol Fumarate (Sym (07/31/18 09:00) (Nf) Cholecalciferol (Vitamin D3) (Vitam (07/31/18 09:00) (Nf) Diclofenac Sodium (07/31/18 09:00) (Nf) Glimepiride (07/31/18 09:00) (Nf) Morphine Sulfate (Morphine Sulfate (07/30/18 22:00) Pharmacy Communication (Pharmacy Communi (07/30/18 22:00) Trospium Tablet (Sanctura Tablet) (07/31/18 06:00) Fluticasone/Salmeterol Common (Advair 11 (07/31/18 08:00) Cholecalciferol Capsule/Tablet (Vitamin (07/31/18 09:00) Etodolac Capsule/Tablet ([place] Capsule/ (07/31/18 09:00) Glimepiride Tablet (Amaryl Tablet) (07/31/18 09:00) Morphine Er Tablet (Ms Contin Tablet) (07/31/18 09:00) Catheter(Urinary) Discontinue (07/31/18 09:45) Prednisone Tablet (Deltasone Tablet) (07/31/18 09:45) Central Line D/C (07/31/18 09:45) Patient Visit (07/31/18 ) Wheelchair Mgmt/Propulsn 15min (07/31/18 ) Exercise Therap, Ea 15 Min (07/31/18 ) Functional Activities, Ea 15 (07/31/18 ) Patient Visit (07/31/18 ) Wheelchair Mgmt/Propulsn 15min (07/31/18 ) Exercise Therap, Ea 15 Min (07/31/18 ) Patient Visit (07/31/18 ) Treat. Speech/Lang/Voice (07/31/18 ) Insulin Aspart (Novolog) (Novolog (Charg (08/01/18 06:00) Insulin Determir (Per Unit) (Levemir (Pe (08/01/18 21:00) Insulin Aspart (Novolog) (Novolog (Charg (07/31/18 16:00) Patient Visit (08/01/18 ) Functional Activities, Ea 15 (08/01/18 ) Exercise Therap, Ea 15 Min (08/01/18 ) Gait Training, Ea 15 Min (08/01/18 ) Patient Visit (08/01/18 ) Treat. Speech/Lang/Voice (08/01/18 ) Steve Oliva (08/01/18 19:20) Rehab Nursing Orders: Ongoing Assess. of Cognitive Status, Ongoing Assess. of Function Status, Bladder Management, Bladder Scan, Bladder Training, Bowel Management, Disease Management & Educaiton, DVT Prophylaxis, Fluid/Electrolyte/ Nutrition Mgmt, Infection Prevention, Management of Risks & Complications, Nutrition Management, Pain Management, Patient/Family Support, Safety Management Intensity of Therapy to be met Patient to be seen: Min.3h per day/5 of 7d PT IPOC Problem List: Activity Tolerance, Functional Strength, Safety, Balance, Gait, Transfer Treatment Plan: Continue Plan of Care Bed Mobility, Education, Functional Activity Imani, Functional Strength, Group Therapy, Gait, Safety, Therapeutic Exercise, Transfers Treatment Duration: August 20, 2018 Frequency: At least 5 of 7 days/Wk (IRF) Estimated Hrs Per Day: 1.5 hours per day OT IPOC Problems: Decreased Activ Tolerance, Decreased Safety Aware, Impaired Funct Balance, Impaired I ADL's, Impaired Self-Care Skills OT Treatment, Training and Edu: Yes Plan of Care: ADL Retraining, Caregiver Training, Functional Mobility, Group Exercise/Act as Ind, UE Funct Exercise/Act Treatment Duration: August 20, 2018 Frequency: At least 5 of 7 days/Wk (IRF) Estimated Hrs Per Day: 1.[address] IPOC Speech Therapy Treatment Plan: Continue Plan of Care Treatment Duration: August 09, 2018 Frequency: 5 times per week Estimated Hrs Per Day: .5 hour per day Lipstick Molder/Case Mgmt Lipstick Molder/Case Managemen: Discharge Planning Dietitian/Knot Borer Dietitian/Knot Borer to monitor nutritional status and make changes and/or recommendations as needed and work with speech pathology on dietary upgrades as the occur. Physician IPOC Medical Issues being managed closely and that require the 24 hour availability of a physician: Medical Issues: Bowel/Bladder Function, DVT Prophylaxis, Falls Precautions, Fluid/Electrolyte/Nutrition Balance, Infection Protection, Pain Management Brief Synthesis of Preadmission Screen, Post-Admission Evaluation, and Therapy Evaluations: Medical Prognosis: Good Anticipated Length of Stay: 7 days ANGÉLICA DAVIS DO August 01, 2018 17:23
[2018-08-01] MEDS: CYCLOBENZAPRINE 10 MG (FLEXERIL) TAB PO SCH (20:40)
[2018-08-01] MEDS: AMITRIPTYLINE 50 MG (ELAVIL) TAB PO SCH (20:40)
[2018-08-02] MEDS: RT-ALBUTEROL/IPRATROPIUM 3 ML (DUONEB) VIAL INH SCH ×6 (03:07→22:27)
[2018-08-02 06:10] VITALS: BP 118/75
[2018-08-02] MEDS: predniSONE 20 MG TAB PO SCH (06:35)
[2018-08-02] MEDS: PANTOPRAZOLE 40 MG (PROTONIX) TAB PO SCH (06:35)
[2018-08-02] MEDS: TROSPIUM 20 MG (SANCTURA) TAB PO SCH ×2 (06:35→17:53)
[2018-08-02] MEDS: inSUlin ASPART (NovoLOG) 1 UNIT/0.01 ML (CHARGE PER UNIT) SC SCH ×3 (06:35→17:54)
[2018-08-02] MEDS: VITAMIN D3 1,000 UNITS (CHOLECALCIFEROL) TABLET PO SCH (08:39)
[2018-08-02] MEDS: GABAPENTIN 600 MG (NEURONTIN) TAB PO SCH ×3 (08:39→20:51)
[2018-08-02] MEDS: MECLIZINE 25 MG (ANTIVERT) TAB PO SCH ×4 (08:39→20:51)
[2018-08-02] MEDS: GLIMEPIRIDE 4 MG (AMARYL) TAB PO SCH ×2 (08:39→20:51)
[2018-08-02] MEDS: amLODIPine 10 MG (NORVASC) TAB PO SCH (08:44)
[2018-08-02] MEDS: meTOproloL SUCCINATE 50 MG (TOPROL XL) TAB PO SCH (08:44)
[2018-08-02 08:45] VITALS: BP 138/73
[2018-08-02] MEDS: ETODOLAC 300 MG (LODINE) CAP PO SCH ×2 (08:45→20:51)
[2018-08-02] MEDS: FLUTICASONE NASAL SPRAY (FLONASE) 16 GM BTL NS SCH (08:47)
--- NOTE | 2018-08-02 09:02 | PM&R Progress Note ---
Subjective HPI/CC On Admission Date Seen by Provider: August 02, 2018 Time Seen by Provider: 08:30 Chief complaint: Severe Weakness HPI: This is a 62yoWM clinic Pt of Dr. Nuno who presents to inpatient rehab due to sever myopathy due to critical illness and intubation last week after septic shock, acute kidney injury, and hyperkalemia. He was able to be extubated under Dr. Deal's expertise last Sunday and was well enough to move down to fourth floor to continue IV antibiotics of Meropenem along with supportive care and oxygen. He doesn't use oxygen at home. He is very weak, his prior level of functioning was independent with ADLs and ambulation without assistive devices and currently he is participating in therapy but overall very weak and requiring inpatient rehab. His bowels are moving and urinary catheter will be discontinued upon admission to rehab. Subjective/Events-last exam Blood sugar running a bit high since very low yesterday so will allow and then increase insulin soon Has some swelling in his legs and LACHELLE's are really helping him Maintain on oxygen but he doesn't use that at home so will need to wean or place at [place] Bowel regimen maintained with good bowel function No bladder issues currently Participating in all therapies Gaining independence with ADLs Conferred with RN Participating in therapy Very poor living conditions reported Review of Systems General: Fatigue Objective Exam Vital Signs Vital Signs Date Time Temp Pulse Resp B/P (MAP) Pulse Ox O2 Delivery O2 Flow Rate FiO2 08/02/18 15:21 91 Room Air 08/02/18 09:00 3.00 08/02/18 08:45 96 138/73 (94) 08/02/18 06:10 98.2 16 Capillary Refill : General Appearance: No Apparent Distress, WD/WN, Chronically ill HEENT: PERRL/EOMI, Normal ENT Inspection, Pharynx Normal, Moist Mucous Membranes Neck: Full Range of Motion, Normal Inspection, Non Tender, Supple Respiratory: Chest Non Tender, Lungs Clear, Normal Breath Sounds, No Accessory Muscle Use, No Respiratory Distress, Decreased Breath Sounds Cardiovascular: Regular Rate, Rhythm, No Edema, No Gallop, No JVD, No Murmur Gastrointestinal: Normal Bowel Sounds, No Organomegaly, No Pulsatile Mass, Non Tender, Soft Back: Normal Inspection, No CVA Tenderness, No Vertebral Tenderness Extremity: Normal Capillary Refill, Normal Inspection, Normal Range of Motion, Non Tender, No Calf Tenderness, No Pedal Edema Neurologic/Psychiatric: Alert, Oriented x3, No Motor/Sensory Deficits ( generalized weakness all extremities), Normal Mood/Affect Skin: Normal Color, Warm/Dry Lymphatic: No Adenopathy Results/Procedures Lab Patient resulted labs reviewed. FIM Transfers Therapy Code Descriptions/Definitions Functional [place] Measure: 0=Not Assessed/NA 4=Minimal Assistance 1=Total Assistance 5=Supervision or Setup 2=Maximal Assistance 6=Modified [place] 3=Moderate Assistance 7=Complete [place] Therapy Quality Codes: 6 Independent with activity with or without an assistive device 5 Patient requires set up or clean up by helper. Patient completes activity by themselves 4 Supervision or touching assist (CGA). [place] provide cues , steadying assist 3 The helper provides less than half the effort to complete the activity 2 The helper provides more than half the effort to complete the activity 1 Dependent. The helper does all the effort to complete an activity 7 Patient refused to complete or attempt activity 9 The patient did not perform the activity before the current illness or injury 88 Not attempted due to Medical conditions or safety concerns Mental Status/Objective Comprehension: 5 Expression: 5 Social Interaction: 6 Problem Solvin Memory: 4 ADL-Treatment Groomin (CGA while standing at sink with intermitted sitting for actviity tolernace) Oral Hygiene (QC): 4 Bathin (CGA for safety/ balance when standing. pt only stod to wash buttock but sat for all other bathing locations) Bathing Location: L Arm, R Arm, L Upper Leg, R Upper Leg, L Lower Leg ( including foot), R Lower Leg (including foot), Chest, Abdomen, Buttocks, Perineal Area Shower/Bathe Self (QC): 4 Upper Extremity Dressin (SPV for safety/ balance while sitting EOB) Upper Body Dressing (QC): 4 Lower Extremity Dressin (MIN A for LACHELLE hose to be applied. CGA when standing to pull up pants. ) Lower Body Dressing (QC): 4 On/Off Footwear (QC): 4 (misha sock s and shoes. CGA when bending forward for safety/ balance) Toiletin (CGA while stnading) Toileting Hygiene (QC): 4 Toilet/Commode Transfer: 4 (CGA fro stand piviot tranfers from w/c) Toilet Transfer (QC): 4 Shower: 4 Assessment/Plan Assessment and Plan Assess & Plan/Chief Complaint Assessment: Myopathy Vertigo acute on chronic Hypoglycemia Plan: IRF protocol Return to home at [place] with family Monitor sugars Home meds Hold long-acting narcs Decrease insulin due to hypoglycemia but will increase back soon Monitor vertigo (1) Myopathy (2) Chronic back pain (3) Severe sepsis (4) Essential (primary) hypertension (5) Normocytic anemia (6) Thrombocytopenia (7) Acute renal failure (8) Insulin dependent diabetes mellitus (9) Volume depletion (10) COPD (chronic obstructive pulmonary disease) (11) Acute hyperkalemia (12) Acute kidney injury (13) Acute respiratory failure with hypoxemia (14) Altered mental status (15) Left bundle branch block (LBBB) determined by electrocardiography ANGÉLICA DAVIS DO August 02, 2018 09:02
--- NOTE | 2018-08-02 09:38 | Progress Note-Cardiology ---
Cardiology SOAP Progress Note Subjective: Gen weakness and malaise No cp or palp or syncope Objective: I&O/Vital Signs 08/01/18 08/02/18 08/02/18 08/02/18 22:38 03:06 06:10 06:27 Temp 98.2 Pulse 83 Resp 16 B/P (MAP) 118/75 (89) Pulse Ox 94 92 91 92 O2 Delivery Room Air Room Air Nasal Cannula Room Air O2 Flow Rate 3.00 08/01/18 23:59 Intake Total 1285 ml Output Total 1350 ml Balance -65 ml Weight (Pounds): 265 Weight (Ounces): 8.0 Weight (Calculated Kilograms): 120.856712 Constitutional: AAO x 3, well-developed, well-nourished Respiratory: other (fair bilat air entry, diminished at the bases, prolonged exp phase) Cardiovascular: regular rate-rhythm, S1 and S2, systolic murmur (soft JESUS at card base) Gastrointestional: No tender; soft; No guarding, No rebound; audible bowel sounds Extremities: No clubbing, No cyanosis, No significant edema Neurologic/Psychiatric: oriented x 3, grossly intact, power is 5/5 both on sides Skin: No rash on exposed areas, No ulcerations on exposed areas Results/Procedures: Labs Laboratory Tests 08/01/18 11:02: Glucometer 198H 08/01/18 15:33: Glucometer 209H 08/01/18 20:09: Glucometer 200H 08/02/18 05:46: Glucometer 117H A/P: Assessment: Acute resp failure in late June and early July 2018, probably due to aspiration pneumonia, now resolved Probable COPD Acute renal failure in late June and early July 2018 - resolved Echo of 07/23/18: LVEF 60-65%, mild conc LVH, grade 1 max dysfunction LBBB DM Chronic narcotic use d/t chronic back pain Symptoms of bilat leg claudication Plan: * Focus of CV management currently is on risk factor mod; this was discussed and advised again today * Does have risk factors for CAD and symptoms of leg claudication. Cor and leg circ w/u is recommended after stabilization of current issues (post discharge) RAMON JOYCE MD FACP FACC CCDS August 02, 2018 09:38
--- NOTE | 2018-08-02 10:50 | Speech Therapy Daily Note ---
Speech Daily Progress Note Subjective Date Seen by Provider: August 02, 2018 Time Seen by Provider: 00:30 The patient states he feels a lot better today. Objective The patient completed memory tasks related to himself at 90% with minimal cues. Assessment Assessment Current Status: Good Progress Treatment Plan Continue Plan of Care Communication Comprehension: 5 Expression: 5 Social Cognition Social Interaction: 6 Problem Solvin Memory: 4 Speech Short Term Goals Short Term Goals Short Term Goals 1) The patient will tolerate the least restrictive diet level without s/s of aspiration at 90% or greater. 2) The patient will utilize compensatory strategies as trained with 90% or greater with minimal cues. 3) The patient will be able to recall new information related to himself with 90 % or greater given minimal cues. 4) The patient will be able to follow directions for safety with 90% or greater given minimal cues. Speech Residential Goals Appraisal Manager Goals The patient will maintain adequate nutrition/hydration via safe effective swallow function. The patient will improve his safety and independence in order to return home. Speech-Plan Patient/Family Goals Patient/Family Goals: The patient plans to return home where he lives with his significant other post rehab. Treatment Plan Speech Therapy Treatment Plan: Continue Plan of Care The patient is making good progress as a result of skilled ST services. Treatment Duration: August 09, 2018 Frequency: 5 times per week Estimated Hrs Per Day: .5 hour per day Rehab Potential: Fair Barriers to Learning: Memory and problem solving deficits, however these areas are improving Pt/Family Agrees to Plan: Yes Safety Risks/Education Teaching Recipient: Patient Teaching Methods: Discussion Response to Teaching: Verbalize Understanding Education Topics Provided: Safety within his room Time Speech Therapy Time In: 09:30 Speech Therapy Time Out: 10:00 Total Billed Time: 30 Billed Treatment Time 1, MANSOOR Corbin August 02, 2018 10:50
--- NOTE | 2018-08-02 11:34 | Occupational Ther Daily Note ---
OT Current Status-Daily Note Subjective Pt in bed, agrees to therapy. Pt reports 8/10 back pain. Mental Status/Objective Therapy Code Descriptions/Definitions Functional [place] Measure: 0=Not Assessed/NA 4=Minimal Assistance 1=Total Assistance 5=Supervision or Setup 2=Maximal Assistance 6=Modified [place] 3=Moderate Assistance 7=Complete [place] ADL-Treatment Pt requests a shower this morning. Supine to sit with SBA. Sit to stand with supervision. Gait to restroom with FWW. Transfer to [facility] over toilet with SBA using grab bars, skilled cues for safety. Pt unable to have BM at this time. Pt doffed clothing with SBA. Transfer to walk in shower with CGA for safety. Seated bathing completed using hand held shower. Upper body bathing completed with SBA. Pt required CGA for balance during lower body bathing. Don pullover shirt with set up. Pt able to thread bilateral LE into Depends and shorts. Stood with CGA for balance during pant hike. Assist to don LACHELLE hose. Pt able to don shoes with set up. Grooming tasks completed seated at sink. Pt brushed teeth and combed hair with set up. Increased time for ADLs. Therapy Code Descriptions/Definitions Functional [place] Measure: 0=Not Assessed/NA 4=Minimal Assistance 1=Total Assistance 5=Supervision or Setup 2=Maximal Assistance 6=Modified [place] 3=Moderate Assistance 7=Complete [place] Therapy Quality Codes: 6 Independent with activity with or without an assistive device 5 Patient requires set up or clean up by helper. Patient completes activity by themselves 4 Supervision or touching assist (CGA). [place] provide cues , steadying assist 3 The helper provides less than half the effort to complete the activity 2 The helper provides more than half the effort to complete the activity 1 Dependent. The helper does all the effort to complete an activity 7 Patient refused to complete or attempt activity 9 The patient did not perform the activity before the current illness or injury 88 Not attempted due to Medical conditions or safety concerns Grooming (FIM): 5 Oral Hygiene (QC): 5 Bathing (FIM): 4 Shower/Bathe Self (QC): 4 Upper Body (FIM): 5 Upper Body Dressing (QC): 5 Lower Body Dressing (FIM): 4 Lower Body Dressing (QC): 4 On/Off Footwear (QC): 5 Toilet/Commode Transfer (FIM): 4 Toilet Transfer (QC): 4 Shower Transfer(FIM): 4 (CGA) Other Treatment Pt completed bilateral UE exercises to increase strength needed for ADL and transfers. Pt performed four UE exercises x15 reps with moderate resistance (red ) theraband. Rest breaks between exercises. Pt able to track reps, but required occasional cues for proper exercise technique. Pt sitting in chair with needs met after session. OT Short Term Goals Short Term Goals Time Frame: August 06, 2018 Grooming(FIM): 5 Bathing(FIM): 4 Lower Body Dressing(FIM): 4 Toileting(FIM): 4 Transfers (B,C,W/C) (FIM): 5 Toilet/Commode Transfer(FIM): 4 Shower Transfer(FIM): 4 Additional Short Term Goals: 1-Demonstrate ADL Tasks, 2-Verbalize Understanding , 3-ImproveStrength/Imani 1=Demonstrate adherence to instructed precautions during ADL tasks. 2=Patient will verbalize/demonstrate understanding of assistive devices/ modifications for ADL. 3=Patient will improve strength/tolerance for activity to enable patient to perform ADL's. OT Custodial Goals Custodial Goals Time Frame: August 20, 2018 Eating (FIM): 6 Eating (QC): 6 Groomin Oral Hygiene (QC): 6 Bathing(FIM): 5 Shower/Bathe Self (QC): 5 Upper Body Dressing(FIM): 6 Upper Body Dressing (QC): 6 Lower Body Dressing(FIM): 6 Lower Body Dressing (QC): 6 On/Off Footwear (QC): 6 Toileting(FIM): 6 Toileting Hygiene (QC): 6 Toilet/Commode Transfer(FIM): 6 Toilet/Commode Transfer (QC): 6 Shower Transfer(FIM): 5 Additional Goals: 1-Demonstrate ADL Tasks, 2-Verbalize Understanding, 3- ImproveStrength/Imani 1=Demonstrate adherence to instructed precautions during ADL tasks. 2=Patient will verbalize/demonstrate understanding of assistive devices/ modifications for ADL. 3=Patient will improve strength/tolerance for activity to enable patient to perform ADL's. OT Education/Plan Discharge Recommendations Plan/Recommendations: Continue POC Treatment Plan/Plan of Care Patient would benefit from OT for education, treatment and training to promote independence in ADL's, mobility, safety and/or upper extremity function for ADL' s. Plan of Care: ADL Retraining, Caregiver Training, Functional Mobility, Group Exercise/Act as Ind, UE Funct Exercise/Act Treatment Duration: August 20, 2018 Frequency: At least 5 of 7 days/Wk (IRF) Estimated Hrs Per Day: 1.5 hours per day Agreement: Yes Rehab Potential: Fair Time/GCodes Start Time: 08:00 Stop Time: 09:15 Total Time Billed (hr/min): 75 Billed Treatment Time 1 visit, ADLx4(60minutes), EX(15minutes) HAMLET MORRIS OT August 02, 2018 11:34
[2018-08-02] MEDS: ENOXAPARIN 40 MG/0.4 ML (LOVENOX) SYR SC SCH (12:26)
--- NOTE | 2018-08-02 13:44 | Physical Therapy Daily Note ---
PT Daily Note-Current Subjective Pt. agrees to Rx. States he is getting stronger and feels good about his progress. Pain Location: No Pain Reported Mental Status Patient Orientation: Normal For Age Attachments: Oxygen (2.5L) Transfers Therapy Code Descriptions/Definitions Functional [place] Measure: 0=Not Assessed/NA 4=Minimal Assistance 1=Total Assistance 5=Supervision or Setup 2=Maximal Assistance 6=Modified [place] 3=Moderate Assistance 7=Complete [place] Therapy Quality Codes: 6 Independent with activity with or without an assistive device 5 Patient requires set up or clean up by helper. Patient completes activity by themselves 4 Supervision or touching assist (CGA). [place] provide cues , steadying assist 3 The helper provides less than half the effort to complete the activity 2 The helper provides more than half the effort to complete the activity 1 Dependent. The helper does all the effort to complete an activity 7 Patient refused to complete or attempt activity 9 The patient did not perform the activity before the current illness or injury 88 Not attempted due to Medical conditions or safety concerns Transfers (B, C, W/C) (FIM): 6 Scootin Rollin Supine to/from Sit: 6 Sit to/from Stand: 6 Bed to/from Chair: 6 Car Transfer (QC): 5 Weight Bearing Right Lower Extremity: Right Weight Bearing/Tolerated Left Lower Extremity: Left Weight Bearing/Tolerated Gait Training Does the Patient Walk?: Yes Gait (FIM): 5 Distance (FIM): 3=150 ft (150x4) Gait Level of Assist: 5 Gait Persons Needed: 1 Gait Assistive Device: FWW assist for O2 Exercises Supine Ex: Bridging, Ankle pumps, Quad Set, Rolling, Glut sets, Heel Slides, Short Arc Quads, Scooting, Straight leg raise, Hip abd/add Supine Reps: 15 Seated Therapy Exercises: Ankle pumps, Sit to stand, Long arc quads, Hip flexion, Hip abd/add Seated Reps: 15 NuStep Minutes: 12 NuStep Workload: 2 Assessment Current Status: Good Progress gives full effort PT Short Term Goals Short Term Goals Time Frame: August 06, 2018 Transfers (B,C,W/C) (FIM): 5 Gait (FIM): 5 Gait Distance Comment: 200' Gait Level of Assist: 5 Gait Assistive Device: FWW Wheelchair Distance: 150' PT Retirement Goals Machine Tool Dresser Goals PT Retirement Goals Time Frame: August 20, 2018 Transfers (B,C,W/C) (FIM): 6 Sit to Lying (QC): 6 Lying-Sitting on Side/Bed(QC): 6 Sit to Stand (QC): 6 Rollin Roll Left to Right (QC): 6 Chair/Rfo-jh-Mmgid Xfer(QC): 6 Car Transfer (QC): 6 Gait (FIM): 6 Distance: 300' Walk 10 feet (QC): 6 Walk 10ft-Uneven Surface(QC): 6 Walk 50ft with 2 Turns (QC): 6 Walk 150 ft (QC): 6 Gait Level of Assist: 6 Gait Assistive Device: FWW Stairs (FIM): 2 # of Steps: 4 1 Step (curb) (QC): 4 4 Steps (QC): 4 Stairs Level Of Assist: 5 PT Plan Treatment/Plan Treatment Plan: Continue Plan of Care Treatment Plan: Bed Mobility, Education, Functional Activity Imani, Functional Strength, Group Therapy, Gait, Safety, Therapeutic Exercise, Transfers Treatment Duration: August 20, 2018 Frequency: At least 5 of 7 days/Wk (IRF) Estimated Hrs Per Day: 1.5 hours per day Patient and/or Family Agrees t: Yes Safety Risks/Education Patient Education: Gait Training, Transfer Techniques, Correct Positioning, Disease Process, Safety Issues Teaching Recipient: Patient Teaching Methods: Demonstration, Discussion Response to Teaching: Verbalize Understanding, Return Demonstration, Reinforcement Needed Time/GCodes Time In: 1140 (1300) Time Out: 1230 (1335) Total Billed Treatment Time: 85 Total Billed Treatment 1,GT35m,EX50m G Codes Necessary: KIERSTEN Gonzalez HEALTH INFORMATION SPECIALIST August 02, 2018 13:44
[2018-08-02] MEDS: RT-ADVAIR HFA 115/21 MCG PER PUFF IH SCH ×2 (15:12→18:35)
[2018-08-02 18:31] VITALS: BP 123/76
--- NOTE | 2018-08-02 19:09 | NUR ---
bedside report received from ELINA ALLEN, assume care of pt
[2018-08-02] MEDS: CYCLOBENZAPRINE 10 MG (FLEXERIL) TAB PO SCH (20:51)
[2018-08-02] MEDS: AMITRIPTYLINE 50 MG (ELAVIL) TAB PO SCH (20:51)
--- NOTE | 2018-08-02 21:00 | NUR ---
assessments & interventions completed, see assessments & interventions, up to bathroom with 1 person assist, walker & gait belt
--- NOTE | 2018-08-02 21:50 | NUR ---
fsbs 212
[2018-08-03] MEDS: RT-ALBUTEROL/IPRATROPIUM 3 ML (DUONEB) VIAL INH SCH ×6 (02:35→22:14)
[2018-08-03 05:32] VITALS: BP 106/51
[2018-08-03] MEDS: TROSPIUM 20 MG (SANCTURA) TAB PO SCH ×2 (06:16→16:22)
[2018-08-03] MEDS: inSUlin ASPART (NovoLOG) 1 UNIT/0.01 ML (CHARGE PER UNIT) SC SCH ×3 (06:17→16:17)
[2018-08-03] MEDS: PANTOPRAZOLE 40 MG (PROTONIX) TAB PO SCH (06:17)
[2018-08-03] MEDS: predniSONE 20 MG TAB PO SCH (06:17)
[2018-08-03] MEDS: RT-ADVAIR HFA 115/21 MCG PER PUFF IH SCH ×2 (06:49→19:02)
--- NOTE | 2018-08-03 07:30 | NUR ---
bedside report given to CAMDEN ALLEN
[2018-08-03 08:00] VITALS: BP 112/73
[2018-08-03] MEDS: ETODOLAC 300 MG (LODINE) CAP PO SCH ×2 (08:35→20:05)
[2018-08-03] MEDS: GABAPENTIN 600 MG (NEURONTIN) TAB PO SCH ×3 (08:35→20:05)
[2018-08-03] MEDS: meTOproloL SUCCINATE 50 MG (TOPROL XL) TAB PO SCH (08:35)
[2018-08-03] MEDS: amLODIPine 10 MG (NORVASC) TAB PO SCH (08:35)
[2018-08-03] MEDS: VITAMIN D3 1,000 UNITS (CHOLECALCIFEROL) TABLET PO SCH (08:35)
[2018-08-03] MEDS: MECLIZINE 25 MG (ANTIVERT) TAB PO SCH ×4 (08:36→20:05)
[2018-08-03] MEDS: GLIMEPIRIDE 4 MG (AMARYL) TAB PO SCH ×2 (08:36→20:04)
[2018-08-03] MEDS: FLUTICASONE NASAL SPRAY (FLONASE) 16 GM BTL NS SCH (08:38)
--- NOTE | 2018-08-03 10:00 | NUR ---
DR. DAVIS INFORMED ONGOING LEG EDEMA EVEN WITH LACHELLE HOSE ON. LASIX WILL BE ADDED TO REGIMEN. SACRAL ULCER CLEANED AND PEELING SKIN CLEANED OFF. PINK TISSUE UNDERNEATH.
--- NOTE | 2018-08-03 10:31 | PM&R Progress Note ---
Subjective HPI/CC On Admission Date Seen by Provider: August 03, 2018 Time Seen by Provider: 10:30 Chief complaint: Severe Weakness HPI: This is a 62yoWM clinic Pt of Dr. Nuno who presents to inpatient rehab due to sever myopathy due to critical illness and intubation last week after septic shock, acute kidney injury, and hyperkalemia. He was able to be extubated under Dr. Deal's expertise last Sunday and was well enough to move down to fourth floor to continue IV antibiotics of Meropenem along with supportive care and oxygen. He doesn't use oxygen at home. He is very weak, his prior level of functioning was independent with ADLs and ambulation without assistive devices and currently he is participating in therapy but overall very weak and requiring inpatient rehab. His bowels are moving and urinary catheter will be discontinued upon admission to rehab. Subjective/Events-last exam Blood sugar running a bit high so I have increased insulin to Levemir 35 units at night and 20 units of NovoLog before meals Has some swelling in his legs and LACHELLE's are really helping him but I will go ahead and add Lasix 20 MG daily and he seems pleased about that Maintain on oxygen but he doesn't use that at home so will need to wean or place at [place] but then the nurse told me that he kessler night and during the day at times Bowel regimen maintained with good bowel function Short-term memory recall is significant so we'll evaluate that at the first of the week Participating in all therapies Gaining independence with ADLs Conferred with RN Participating in therapy Very poor living conditions reported Review of Systems General: Fatigue Cardiovascular: Edema Objective Exam Vital Signs Vital Signs Date Time Temp Pulse Resp B/P (MAP) Pulse Ox O2 Delivery O2 Flow Rate FiO2 08/03/18 11:39 97 Nasal Cannula 2.00 08/03/18 05:32 97.6 88 20 106/51 (69) Capillary Refill : General Appearance: No Apparent Distress, WD/WN, Chronically ill HEENT: PERRL/EOMI, Normal ENT Inspection, Pharynx Normal, Moist Mucous Membranes Neck: Full Range of Motion, Normal Inspection, Non Tender, Supple Respiratory: Chest Non Tender, Lungs Clear, Normal Breath Sounds, No Accessory Muscle Use, No Respiratory Distress, Decreased Breath Sounds Cardiovascular: Regular Rate, Rhythm, No Edema, No Gallop, No JVD, No Murmur Gastrointestinal: Normal Bowel Sounds, No Organomegaly, No Pulsatile Mass, Non Tender, Soft Back: Normal Inspection, No CVA Tenderness, No Vertebral Tenderness Extremity: Normal Capillary Refill, Normal Inspection, Normal Range of Motion, Non Tender, No Calf Tenderness, Pedal Edema Neurologic/Psychiatric: Alert, Oriented x3, No Motor/Sensory Deficits ( generalized weakness all extremities), Normal Mood/Affect, Disoriented Skin: Normal Color, Warm/Dry Lymphatic: No Adenopathy Results/Procedures Lab Patient resulted labs reviewed. FIM Transfers Therapy Code Descriptions/Definitions Functional [place] Measure: 0=Not Assessed/NA 4=Minimal Assistance 1=Total Assistance 5=Supervision or Setup 2=Maximal Assistance 6=Modified [place] 3=Moderate Assistance 7=Complete [place] Therapy Quality Codes: 6 Independent with activity with or without an assistive device 5 Patient requires set up or clean up by helper. Patient completes activity by themselves 4 Supervision or touching assist (CGA). [place] provide cues , steadying assist 3 The helper provides less than half the effort to complete the activity 2 The helper provides more than half the effort to complete the activity 1 Dependent. The helper does all the effort to complete an activity 7 Patient refused to complete or attempt activity 9 The patient did not perform the activity before the current illness or injury 88 Not attempted due to Medical conditions or safety concerns Transfers (B, C, W/C) (FIM): 6 Scootin Rollin Roll Left to Right (QC): 4 Supine to/from Sit: 6 Sit to/from Stand: 6 Sit to Lying (QC): 4 Sit to Stand (QC): 4 Chair/Avr-nu-Tyttv Xfer(QC): 4 Bed to/from Chair: 6 Car Transfer (QC): 5 Gait Training Does the Patient Walk?: Yes Gait (FIM): 5 Distance (FIM): 3=150 ft (150x4) Distance: 280' x2 Walk 10 feet (QC): 5 Walk 50 ft with 2 Turns(QC): 4 Walk 150 ft (QC): 4 Walking 10ft/uneven surface-QC: 4 Gait Level of Assist: 5 Gait Persons Needed: 1 Gait Assistive Device: FWW Wheelchair Training Does the Pt Use a Wheelchair?: Yes Wheelchair (FIM): 5 Wheelchair Distance: 3=150 ft Distance: 150' Wheelchair Level of Assist: 5 Wheel 50 ft with 2 turns (QC): 5 Wheel 150 ft (QC): 5 Type of Wheelchair: Manual Stair Training Stair Training: Handrails/: 2 handrails Stairs (FIM): 4 #of Steps: 8 1 Step (curb) (QC): 3 Stairs: Pattern: Step to Level of Assist: 4 (CGA provided to begin, then SBA) Mental Status/Objective Comprehension: 5 Expression: 5 Social Interaction: 6 Problem Solvin Memory: 4 ADL-Treatment Groomin Oral Hygiene (QC): 5 Bathin Bathing Location: L Arm, R Arm, L Upper Leg, R Upper Leg, L Lower Leg ( including foot), R Lower Leg (including foot), Chest, Abdomen, Buttocks, Perineal Area Shower/Bathe Self (QC): 4 Upper Extremity Dressin Upper Body Dressing (QC): 5 Lower Extremity Dressin Lower Body Dressing (QC): 4 On/Off Footwear (QC): 5 Toiletin (CGA while stnading) Toileting Hygiene (QC): 4 Toilet/Commode Transfer: 4 Toilet Transfer (QC): 4 Shower: 4 (CGA) Assessment/Plan Assessment and Plan Assess & Plan/Chief Complaint Assessment: Myopathy Vertigo acute on chronic Hypoglycemia Edema Plan: IRF protocol Return to home at [place] with family Monitor sugars Home meds Hold long-acting narcs Decrease insulin due to hypoglycemia but will increase back soon Evaluate how profound the memory recall is on Sunday Lasix for edema along with LACHELLE damon (1) Myopathy (2) Chronic back pain (3) Severe sepsis (4) Essential (primary) hypertension (5) Normocytic anemia (6) Thrombocytopenia (7) Acute renal failure (8) Insulin dependent diabetes mellitus (9) Volume depletion (10) COPD (chronic obstructive pulmonary disease) (11) Acute hyperkalemia (12) Acute kidney injury (13) Acute respiratory failure with hypoxemia (14) Altered mental status (15) Left bundle branch block (LBBB) determined by electrocardiography ANGÉLICA DAVIS DO August 03, 2018 10:31
--- NOTE | 2018-08-03 11:13 | Physical Therapy Daily Note ---
PT Daily Note-Current Subjective Pt sitting in recliner upon arrival. Pt agrees to PT. Mental Status Patient Orientation: Person, Confused, Place Transfers Therapy Code Descriptions/Definitions Functional [place] Measure: 0=Not Assessed/NA 4=Minimal Assistance 1=Total Assistance 5=Supervision or Setup 2=Maximal Assistance 6=Modified [place] 3=Moderate Assistance 7=Complete [place] Therapy Quality Codes: 6 Independent with activity with or without an assistive device 5 Patient requires set up or clean up by helper. Patient completes activity by themselves 4 Supervision or touching assist (CGA). [place] provide cues , steadying assist 3 The helper provides less than half the effort to complete the activity 2 The helper provides more than half the effort to complete the activity 1 Dependent. The helper does all the effort to complete an activity 7 Patient refused to complete or attempt activity 9 The patient did not perform the activity before the current illness or injury 88 Not attempted due to Medical conditions or safety concerns Scootin Sit to/from Stand: 5 Sit to Stand (QC): 5 Weight Bearing Right Lower Extremity: Right Weight Bearing/Tolerated Left Lower Extremity: Left Weight Bearing/Tolerated Gait Training Does the Patient Walk?: Yes Gait (FIM): 5 Distance (FIM): 3=150 ft Distance: 400' Walk 10 feet (QC): 5 Walk 50 ft with 2 Turns(QC): 5 Walk 150 ft (QC): 5 Gait Level of Assist: 5 Gait Persons Needed: 1 Gait Assistive Device: FWW Pt needs VC at times for safety. Wheelchair Training Does the Pt Use a Wheelchair?: No Exercises NuStep Minutes: 10 NuStep Workload: 4 Treatments Pt transfers to standing and ambulates in hallway. Pt uses NuStep for 10m at WL 4. Pt ambulates a longer walk on way back to room. Pt rests at EOB at end of tx with all needs met. Assessment Current Status: Good Progress Pt needs occasional VC for safety for positioning an sequencing during ambulation. PT Short Term Goals Short Term Goals Time Frame: August 06, 2018 Transfers (B,C,W/C) (FIM): 5 Gait (FIM): 5 Gait Distance Comment: 200' Gait Level of Assist: 5 Gait Assistive Device: FWW Wheelchair Distance: 150' PT [facility] Goals [facility] Goals PT [facility] Goals Time Frame: August 20, 2018 Transfers (B,C,W/C) (FIM): 6 Sit to Lying (QC): 6 Lying-Sitting on Side/Bed(QC): 6 Sit to Stand (QC): 6 Rollin Roll Left to Right (QC): 6 Chair/Sqh-no-Ibang Xfer(QC): 6 Car Transfer (QC): 6 Gait (FIM): 6 Distance: 300' Walk 10 feet (QC): 6 Walk 10ft-Uneven Surface(QC): 6 Walk 50ft with 2 Turns (QC): 6 Walk 150 ft (QC): 6 Gait Level of Assist: 6 Gait Assistive Device: FWW Stairs (FIM): 2 # of Steps: 4 1 Step (curb) (QC): 4 4 Steps (QC): 4 Stairs Level Of Assist: 5 PT Plan Problem List Problem List: Activity Tolerance, Safety, Gait Treatment/Plan Treatment Plan: Continue Plan of Care Treatment Plan: Bed Mobility, Education, Functional Activity [place], Functional Strength, Group Therapy, Gait, Safety, Therapeutic Exercise, Transfers Treatment Duration: August 20, 2018 Frequency: At least 5 of 7 days/Wk (IRF) Estimated Hrs Per Day: 1.5 hours per day Patient and/or Family Agrees t: Yes Safety Risks/Education Patient Education: Gait Training, Transfer Techniques, Correct Positioning, Safety Issues Teaching Recipient: Patient Teaching Methods: Discussion Response to Teaching: Verbalize Understanding Time/GCodes Time In: 1005 Time Out: 1035 Total Billed Treatment Time: 30 Total Billed Treatment 1, GT (20m) & EX (10m) G Codes Necessary: THERON Neves MOLECULAR BIOLOGY PROFESSOR August 03, 2018 11:13
[2018-08-03] MEDS: ENOXAPARIN 40 MG/0.4 ML (LOVENOX) SYR SC SCH (11:31)
[2018-08-03] MEDS: FUROSEMIDE 20 MG (LASIX) TAB PO SCH (11:32)
--- NOTE | 2018-08-03 13:22 | Cardiology Progress Note ---
Cardiology SOAP Progress Note Subjective: Mild shortness of breath. Objective: I&O/Vital Signs 08/03/18 08/03/18 08/03/18 08/03/18 02:36 05:32 06:49 06:56 Temp 97.6 Pulse 88 Resp 20 B/P (MAP) 106/51 (69) Pulse Ox 95 95 97 92 O2 Delivery Nasal Cannula Nasal Cannula Nasal Cannula Nasal Cannula O2 Flow Rate 2.00 3.00 2.00 2.00 08/03/18 08/03/18 09:00 11:39 Pulse Ox 97 O2 Delivery Nasal Cannula Nasal Cannula O2 Flow Rate 2.00 2.00 08/03/18 00:00 Intake Total 1252 ml Output Total 1450 ml Balance -198 ml Weight (Pounds): 265 Weight (Ounces): 8.0 Weight (Calculated Kilograms): 120.357150 Constitutional: AAO x 3, well-developed, well-nourished Respiratory: wheezing, other (fair bilat air entry, diminished at the bases, prolonged exp phase) Cardiovascular: regular rate-rhythm, S1 and S2, systolic murmur (soft JESUS at card base) Gastrointestional: No tender; soft; No guarding, No rebound; audible bowel sounds Extremities: No normal range of motion, No non-tender, No normal inspection, No pedal edema, No calf tenderness, No normal capillary refill, No pelvis stable , No calf tenderness, No inflammation, No pedal edema, No slow capillary refill , No swelling, No other, No abrasion, No clubbing, No cyanosis, No ecchymosis, No laceration, No no lower extremity edema bilateral, No significant edema, No tenderness, No wound Neurologic/Psychiatric: no motor/sensory deficits, alert, normal mood/affect, oriented x 3, grossly intact, power is 5/5 both on sides Skin: No rash on exposed areas, No ulcerations on exposed areas Results/Procedures: Labs Laboratory Tests 08/02/18 17:35: Glucometer 134H 08/02/18 21:50: Glucometer 212H 08/03/18 05:46: Glucometer 221H 08/03/18 11:00: Glucometer 315H A/P: Assessment/Dx: Acute resp failure in late June and early July 2018, probably due to aspiration pneumonia, now resolved Probable COPD Acute renal failure in late June and early July 2018 - resolved Echo of 07/23/18: LVEF 60-65%, mild conc LVH, grade 1 max dysfunction LBBB DM Chronic narcotic use d/t chronic back pain Symptoms of bilat leg claudication Plan: * Focus of CV management currently is on risk factor mod; continue current medical therapy. Thank you for your consultation. Please call me if you have any questions. Zoraida Moreno MD, FACP, FACC, FSCAI, FHRS, CCDS Interventional Cardiology Cardiac Electrophysiology Vascular Medicine and Endovascular Interventions Jocelyne MORENO MD August 03, 2018 13:22
[2018-08-03] MEDS: oxyCODONE/APAP 5/325MG (PERCOCET 5) TABLET PO PRN (13:27)
[2018-08-03 15:31] VITALS: BP 115/64
[2018-08-03] MEDS: CYCLOBENZAPRINE 10 MG (FLEXERIL) TAB PO SCH (20:04)
[2018-08-03] MEDS: AMITRIPTYLINE 50 MG (ELAVIL) TAB PO SCH (20:04)
[2018-08-04] MEDS: RT-ALBUTEROL/IPRATROPIUM 3 ML (DUONEB) VIAL INH SCH ×6 (02:41→21:15)
[2018-08-04] MEDS: TROSPIUM 20 MG (SANCTURA) TAB PO SCH ×2 (05:34→16:23)
[2018-08-04] MEDS: predniSONE 20 MG TAB PO SCH (05:34)
[2018-08-04] MEDS: PANTOPRAZOLE 40 MG (PROTONIX) TAB PO SCH (05:35)
[2018-08-04 06:06] VITALS: BP 111/64
[2018-08-04] MEDS: RT-ADVAIR HFA 115/21 MCG PER PUFF IH SCH ×2 (06:29→21:15)
[2018-08-04] MEDS: inSUlin ASPART (NovoLOG) 1 UNIT/0.01 ML (CHARGE PER UNIT) SC SCH ×3 (06:49→16:26)
[2018-08-04 08:00] VITALS: BP 109/55
[2018-08-04] MEDS: VITAMIN D3 1,000 UNITS (CHOLECALCIFEROL) TABLET PO SCH (09:08)
[2018-08-04] MEDS: GLIMEPIRIDE 4 MG (AMARYL) TAB PO SCH ×2 (09:08→20:16)
[2018-08-04] MEDS: amLODIPine 10 MG (NORVASC) TAB PO SCH (09:08)
[2018-08-04] MEDS: meTOproloL SUCCINATE 50 MG (TOPROL XL) TAB PO SCH (09:09)
[2018-08-04] MEDS: GABAPENTIN 600 MG (NEURONTIN) TAB PO SCH ×3 (09:09→20:15)
[2018-08-04] MEDS: ETODOLAC 300 MG (LODINE) CAP PO SCH ×2 (09:09→20:15)
[2018-08-04] MEDS: FUROSEMIDE 20 MG (LASIX) TAB PO SCH (09:09)
[2018-08-04] MEDS: MECLIZINE 25 MG (ANTIVERT) TAB PO SCH ×4 (09:09→20:15)
[2018-08-04] MEDS: FLUTICASONE NASAL SPRAY (FLONASE) 16 GM BTL NS SCH (09:11)
--- NOTE | 2018-08-04 09:20 | NUR ---
CHRONIC BACK AND NECK PAIN AND MEDICATED WITH PERCOCET. O2 ON AT 2L. IS SOB WITH EXERTION, BUT STATES IS AT BASELINE.
[2018-08-04] MEDS: oxyCODONE/APAP 5/325MG (PERCOCET 5) TABLET PO PRN ×2 (09:24→20:16)
--- NOTE | 2018-08-04 10:00 | NUR ---
DR. GLORIA HERE TO SEE PATIENT AND NOTIFIED THAT HAD OVER 7 LITERS OUTPUT YESTERDAY WITH LASIX. LASIX CHANGED TO PRN DAILY.
--- NOTE | 2018-08-04 10:37 | PM&R Progress Note ---
Subjective HPI/CC On Admission Date Seen by Provider: August 04, 2018 Time Seen by Provider: 10:30 Chief complaint: Severe Weakness HPI: This is a 62yoWM clinic Pt of Dr. Nuno who presents to inpatient rehab due to sever myopathy due to critical illness and intubation last week after septic shock, acute kidney injury, and hyperkalemia. He was able to be extubated under Dr. Deal's expertise last Sunday and was well enough to move down to fourth floor to continue IV antibiotics of Meropenem along with supportive care and oxygen. He doesn't use oxygen at home. He is very weak, his prior level of functioning was independent with ADLs and ambulation without assistive devices and currently he is participating in therapy but overall very weak and requiring inpatient rehab. His bowels are moving and urinary catheter will be discontinued upon admission to rehab. Subjective/Events-last exam Blood sugar running a bit high but improved today so will hold off in increasing insulin for now Has some swelling in his legs and LACHELLE's are really helping him but Lasix 20 MG daily for past 2 days have produced 7600cc of UOP Maintain on oxygen but he doesn't use that at home so will need to wean or place at [place] but then the nurse told me that he kessler night and during the day at times Bowel regimen maintained with good bowel function Short-term memory recall is significant so we'll evaluate that at the first of the week Participating in all therapies Gaining independence with ADLs Conferred with RN Participating in therapy Very poor living conditions reported Review of Systems General: Fatigue Objective Exam Vital Signs Vital Signs Date Time Temp Pulse Resp B/P (MAP) Pulse Ox O2 Delivery O2 Flow Rate FiO2 08/04/18 17:34 98.4 85 20 116/70 (85) 98 Nasal Cannula 2.00 Capillary Refill : General Appearance: No Apparent Distress, WD/WN, Chronically ill HEENT: PERRL/EOMI, Normal ENT Inspection, Pharynx Normal, Moist Mucous Membranes Neck: Full Range of Motion, Normal Inspection, Non Tender, Supple Respiratory: Chest Non Tender, Lungs Clear, Normal Breath Sounds, No Accessory Muscle Use, No Respiratory Distress, Decreased Breath Sounds Cardiovascular: Regular Rate, Rhythm, No Edema, No Gallop, No JVD, No Murmur Gastrointestinal: Normal Bowel Sounds, No Organomegaly, No Pulsatile Mass, Non Tender, Soft Back: Normal Inspection, No CVA Tenderness, No Vertebral Tenderness Extremity: Normal Capillary Refill, Normal Inspection, Normal Range of Motion, Non Tender, No Calf Tenderness, Pedal Edema Neurologic/Psychiatric: Alert, Oriented x3, No Motor/Sensory Deficits ( generalized weakness all extremities), Normal Mood/Affect, Disoriented Skin: Normal Color, Warm/Dry Lymphatic: No Adenopathy Results/Procedures Lab Patient resulted labs reviewed. FIM Transfers Therapy Code Descriptions/Definitions Functional [place] Measure: 0=Not Assessed/NA 4=Minimal Assistance 1=Total Assistance 5=Supervision or Setup 2=Maximal Assistance 6=Modified [place] 3=Moderate Assistance 7=Complete [place] Therapy Quality Codes: 6 Independent with activity with or without an assistive device 5 Patient requires set up or clean up by helper. Patient completes activity by themselves 4 Supervision or touching assist (CGA). [place] provide cues , steadying assist 3 The helper provides less than half the effort to complete the activity 2 The helper provides more than half the effort to complete the activity 1 Dependent. The helper does all the effort to complete an activity 7 Patient refused to complete or attempt activity 9 The patient did not perform the activity before the current illness or injury 88 Not attempted due to Medical conditions or safety concerns Transfers (B, C, W/C) (FIM): 6 Scootin Rollin Roll Left to Right (QC): 4 Supine to/from Sit: 6 Sit to/from Stand: 5 Sit to Lying (QC): 4 Sit to Stand (QC): 5 Chair/Qpn-hx-Pvris Xfer(QC): 4 Bed to/from Chair: 6 Car Transfer (QC): 5 Gait Training Does the Patient Walk?: Yes Gait (FIM): 5 Distance (FIM): 3=150 ft Distance: 400' Walk 10 feet (QC): 5 Walk 50 ft with 2 Turns(QC): 5 Walk 150 ft (QC): 5 Walking 10ft/uneven surface-QC: 4 Gait Level of Assist: 5 Gait Persons Needed: 1 Gait Assistive Device: FWW Wheelchair Training Does the Pt Use a Wheelchair?: No Wheelchair (FIM): 5 Wheelchair Distance: 3=150 ft Distance: 150' Wheelchair Level of Assist: 5 Wheel 50 ft with 2 turns (QC): 5 Wheel 150 ft (QC): 5 Type of Wheelchair: Manual Stair Training Stair Training: Handrails/: 2 handrails Stairs (FIM): 4 #of Steps: 8 1 Step (curb) (QC): 3 Stairs: Pattern: Step to Level of Assist: 4 (CGA provided to begin, then SBA) Mental Status/Objective Comprehension: 5 Expression: 5 Social Interaction: 6 Problem Solvin Memory: 4 ADL-Treatment Groomin Oral Hygiene (QC): 5 Bathin Bathing Location: L Arm, R Arm, L Upper Leg, R Upper Leg, L Lower Leg ( including foot), R Lower Leg (including foot), Chest, Abdomen, Buttocks, Perineal Area Shower/Bathe Self (QC): 4 Upper Extremity Dressin Upper Body Dressing (QC): 5 Lower Extremity Dressin Lower Body Dressing (QC): 4 On/Off Footwear (QC): 5 Toiletin (CGA while stnading) Toileting Hygiene (QC): 4 Toilet/Commode Transfer: 4 Toilet Transfer (QC): 4 Shower: 4 (CGA) Assessment/Plan Assessment and Plan Assess & Plan/Chief Complaint Assessment: Myopathy Vertigo acute on chronic Hypoglycemia Edema Plan: IRF protocol Return to [place] at [place] with family Monitor sugars but appears improved today so will hold on increasing insulin due to hypoglycemia hx Home meds Hold long-acting narcs Decrease insulin due to hypoglycemia but will increase back soon Evaluate how profound the memory recall is on Sunday Lasix for edema along with LACHELLE damon (1) Myopathy (2) Chronic back pain (3) Severe sepsis (4) Essential (primary) hypertension (5) Normocytic anemia (6) Thrombocytopenia (7) Acute renal failure (8) Insulin dependent diabetes mellitus (9) Volume depletion (10) COPD (chronic obstructive pulmonary disease) (11) Acute hyperkalemia (12) Acute kidney injury (13) Acute respiratory failure with hypoxemia (14) Altered mental status (15) Left bundle branch block (LBBB) determined by electrocardiography ANGÉLICA DAVIS DO August 04, 2018 10:36
--- NOTE | 2018-08-04 11:00 | NUR ---
COMPLAINS OF DIFFICULTY IN SWALLOWING HOT LIQUIDS AT TIMES AND WANTED THICKENER. DR. DAVIS NOTIFIED AND SPEECH THERAPY WILL BE RE-CONSULTED. PATIENT REQUESTS TOENAILS TO BE CUT AND ORDER FOR DR. HART TO BE CONSULTED IN AM.
--- NOTE | 2018-08-04 11:15 | NUR ---
DR. DAVIS NOTIFIED OF BLOOD SUGARS >300 YESTERDAY.
[2018-08-04] MEDS: ENOXAPARIN 40 MG/0.4 ML (LOVENOX) SYR SC SCH (11:22)
[2018-08-04] MEDS ORDERED: FUROSEMIDE 20 MG (LASIX) TAB PO PRN (13:00)
[2018-08-04] MEDS ORDERED: RT-ALBUTEROL/IPRATROPIUM 3 ML (DUONEB) VIAL ONE (14:26)
[2018-08-04 17:34] VITALS: BP 116/70
--- NOTE | 2018-08-04 17:47 | Cardiology Progress Note ---
Cardiology SOAP Progress Note Subjective: Mild shortness of breath. Objective: I&O/Vital Signs 08/04/18 08/04/18 08/04/18 08/04/18 06:06 06:30 06:31 08:00 Temp 96.5 Pulse 92 85 Resp 18 B/P (MAP) 111/64 (80) 109/55 (73) Pulse Ox 97 98 O2 Delivery Nasal Cannula Nasal Cannula Nasal Cannula O2 Flow Rate 2.00 2.00 2.00 08/04/18 08/04/18 08/04/18 08/04/18 09:00 10:25 14:33 17:34 Temp 98.4 Pulse 85 Resp 20 B/P (MAP) 116/70 (85) Pulse Ox 97 98 98 O2 Delivery Nasal Cannula Nasal Cannula Nasal Cannula Nasal Cannula O2 Flow Rate 2.00 2.00 2.00 2.00 08/04/18 00:00 Intake Total 1680 ml Output Total 3525 ml Balance -1845 ml Weight (Pounds): 265 Weight (Ounces): 8.0 Weight (Calculated Kilograms): 120.771606 Constitutional: AAO x 3, well-developed, well-nourished Respiratory: wheezing, other (fair bilat air entry, diminished at the bases, prolonged exp phase) Cardiovascular: regular rate-rhythm, S1 and S2, systolic murmur (soft JESUS at card base) Gastrointestional: No tender; soft; No guarding, No rebound; audible bowel sounds Extremities: No normal range of motion, No non-tender, No normal inspection, No pedal edema, No calf tenderness, No normal capillary refill, No pelvis stable , No calf tenderness, No inflammation, No pedal edema, No slow capillary refill , No swelling, No other, No abrasion, No clubbing, No cyanosis, No ecchymosis, No laceration, No no lower extremity edema bilateral, No significant edema, No tenderness, No wound Neurologic/Psychiatric: no motor/sensory deficits, alert, normal mood/affect, oriented x 3, grossly intact, power is 5/5 both on sides Skin: No rash on exposed areas, No ulcerations on exposed areas Results/Procedures: Labs Laboratory Tests 08/03/18 20:06: Glucometer 238H 08/04/18 05:16: Glucometer 147H 08/04/18 11:11: Glucometer 245H 08/04/18 16:18: Glucometer 164H A/P: Assessment/Dx: Acute resp failure in late June and early July 2018, probably due to aspiration pneumonia, now resolved Mild bilateral lower extremity swelling, resolved with one dose of Lasix 20 mg. Probable COPD Acute renal failure in late June and early July 2018 - resolved Echo of 07/23/18: LVEF 60-65%, mild conc LVH, grade 1 max dysfunction LBBB DM Chronic narcotic use d/t chronic back pain Symptoms of bilat leg claudication Plan: * Focus of CV management currently is on risk factor mod; continue current medical therapy. Thank you for your consultation. Please call me if you have any questions. Zoraida Moreno MD, FACP, FACC, FSCAI, FHRS, CCDS Interventional Cardiology Cardiac Electrophysiology Vascular Medicine and Endovascular Interventions Jocelyne MORENO MD August 04, 2018 17:47
--- NOTE | 2018-08-04 18:00 | NUR ---
BLOOD SUGARS BETTER TODAY.
[2018-08-04] MEDS: CYCLOBENZAPRINE 10 MG (FLEXERIL) TAB PO SCH (20:15)
[2018-08-04] MEDS: AMITRIPTYLINE 50 MG (ELAVIL) TAB PO SCH (20:15)
[2018-08-05] MEDS: RT-ALBUTEROL/IPRATROPIUM 3 ML (DUONEB) VIAL INH SCH ×6 (02:44→20:50)
[2018-08-05 05:20] LABS: BASOPHILS % (AUTO) 0 % (0-10); EOSINOPHILS # (AUTO) 0.1 10^3/uL (0.0-0.3); EOSINOPHILS % (AUTO) 1 % (0-10); HEMATOCRIT 39 % (40-54); HEMOGLOBIN 12.4 G/DL (13.3-17.7); LYMPHOCYTES # (AUTO) 2.5 X 10^3 (1.0-4.0); LYMPHOCYTES % (AUTO) 16 % (12-44); MEAN CORPUSCULAR HEMOGLOBIN 29 PG (25-34); MEAN CORPUSCULAR HGB CONC 32 G/DL (32-36); MEAN CORPUSCULAR VOLUME 90 FL (80-99); MEAN PLATELET VOLUME 11.3 FL (7.4-10.4); MONOCYTES # (AUTO) 1.5 X 10^3 (0.0-1.0); MONOCYTES % (AUTO) 10 % (0-12); NEUTROPHILS # (AUTO) 11.4 X 10^3 (1.8-7.8); NEUTROPHILS % (AUTO) 74 % (42-75); PLATELET COUNT 323 10^3/uL (130-400); RED CELL DISTRIBUTION WIDTH 13.9 % (10.0-14.5); WHITE BLOOD COUNT 15.4 10^3/uL (4.3-11.0)
[2018-08-05 05:39] VITALS: BP 101/68
[2018-08-05 05:42] LABS: ALANINE AMINOTRANSFERASE 37 U/L (0-55); ALBUMIN 3.7 GM/DL (3.2-4.5); ALKALINE PHOSPHATASE 78 U/L (40-136); BILIRUBIN,TOTAL 0.5 MG/DL (0.1-1.0); BUN/CREATININE RATIO 23; CALCIUM 9.7 MG/DL (8.5-10.1); CARBON DIOXIDE 25 MMOL/L (21-32); CHLORIDE 101 MMOL/L (98-107); CREATININE SERUM 1.13 MG/DL (0.60-1.30); GFR ESTIMATED > 60; GLUCOSE 158 MG/DL (70-105); POTASSIUM 5.1 MMOL/L (3.6-5.0); SODIUM 139 MMOL/L (135-145); TOTAL PROTEIN 6.2 GM/DL (6.4-8.2)
[2018-08-05 05:52] LABS: EOSINOPHILS % (MANUAL) 1 %; LYMPHOCYTES % (MANUAL) 19 %; MONOCYTES % (MANUAL) 8 %; NEUTROPHILS % (MANUAL) 72 %
[2018-08-05] MEDS: RT-ADVAIR HFA 115/21 MCG PER PUFF IH SCH ×2 (05:58→20:50)
[2018-08-05] MEDS: PANTOPRAZOLE 40 MG (PROTONIX) TAB PO SCH (06:14)
[2018-08-05] MEDS: predniSONE 20 MG TAB PO SCH (06:14)
[2018-08-05] MEDS: TROSPIUM 20 MG (SANCTURA) TAB PO SCH ×2 (06:14→17:16)
[2018-08-05] MEDS: inSUlin ASPART (NovoLOG) 1 UNIT/0.01 ML (CHARGE PER UNIT) SC SCH ×3 (06:46→17:16)
--- NOTE | 2018-08-05 08:24 | PM&R Progress Note ---
Subjective HPI/CC On Admission Date Seen by Provider: August 05, 2018 Time Seen by Provider: 08:30 Chief complaint: Severe Weakness HPI: This is a 62yoWM clinic Pt of Dr. Nuno who presents to inpatient rehab due to sever myopathy due to critical illness and intubation last week after septic shock, acute kidney injury, and hyperkalemia. He was able to be extubated under Dr. Deal's expertise last Sunday and was well enough to move down to fourth floor to continue IV antibiotics of Meropenem along with supportive care and oxygen. He doesn't use oxygen at home. He is very weak, his prior level of functioning was independent with ADLs and ambulation without assistive devices and currently he is participating in therapy but overall very weak and requiring inpatient rehab. His bowels are moving and urinary catheter will be discontinued upon admission to rehab. Subjective/Events-last exam Blood sugar running better today Lasix has improved the edema tremendously Maintain on oxygen and O2 sats ok Bowel regimen maintained with good bowel function Short-term memory recall is deficient so will obtain SLUMS Participating in all therapies Gaining independence with ADLs Conferred with RN Participating in therapy Very poor living conditions reported Review of Systems General: Fatigue Neurological: Weakness Objective Exam Vital Signs Vital Signs Date Time Temp Pulse Resp B/P (MAP) Pulse Ox O2 Delivery O2 Flow Rate FiO2 08/05/18 08:21 Nasal Cannula 2.00 08/05/18 06:02 98 08/05/18 05:39 98.7 84 20 101/68 (79) Capillary Refill : General Appearance: No Apparent Distress, WD/WN, Chronically ill HEENT: PERRL/EOMI, Normal ENT Inspection, Pharynx Normal, Moist Mucous Membranes Neck: Full Range of Motion, Normal Inspection, Non Tender, Supple Respiratory: Chest Non Tender, Lungs Clear, Normal Breath Sounds, No Accessory Muscle Use, No Respiratory Distress, Decreased Breath Sounds Cardiovascular: Regular Rate, Rhythm, No Edema, No Gallop, No JVD, No Murmur Gastrointestinal: Normal Bowel Sounds, No Organomegaly, No Pulsatile Mass, Non Tender, Soft Back: Normal Inspection, No CVA Tenderness, No Vertebral Tenderness Extremity: Normal Capillary Refill, Normal Inspection, Normal Range of Motion, Non Tender, No Calf Tenderness, Pedal Edema Neurologic/Psychiatric: Alert, Oriented x3, No Motor/Sensory Deficits ( generalized weakness all extremities), Normal Mood/Affect, Disoriented Skin: Normal Color, Warm/Dry Lymphatic: No Adenopathy Results/Procedures Lab Laboratory Tests 08/05/18 05:10 Patient resulted labs reviewed. FIM Transfers Therapy Code Descriptions/Definitions Functional [place] Measure: 0=Not Assessed/NA 4=Minimal Assistance 1=Total Assistance 5=Supervision or Setup 2=Maximal Assistance 6=Modified [place] 3=Moderate Assistance 7=Complete [place] Therapy Quality Codes: 6 Independent with activity with or without an assistive device 5 Patient requires set up or clean up by helper. Patient completes activity by themselves 4 Supervision or touching assist (CGA). [place] provide cues , steadying assist 3 The helper provides less than half the effort to complete the activity 2 The helper provides more than half the effort to complete the activity 1 Dependent. The helper does all the effort to complete an activity 7 Patient refused to complete or attempt activity 9 The patient did not perform the activity before the current illness or injury 88 Not attempted due to Medical conditions or safety concerns Transfers (B, C, W/C) (FIM): 6 Scootin Rollin Roll Left to Right (QC): 4 Supine to/from Sit: 6 Sit to/from Stand: 5 Sit to Lying (QC): 4 Sit to Stand (QC): 5 Chair/Dtt-xh-Qzuhn Xfer(QC): 4 Bed to/from Chair: 6 Car Transfer (QC): 5 Gait Training Does the Patient Walk?: Yes Gait (FIM): 5 Distance (FIM): 3=150 ft Distance: 400' Walk 10 feet (QC): 5 Walk 50 ft with 2 Turns(QC): 5 Walk 150 ft (QC): 5 Walking 10ft/uneven surface-QC: 4 Gait Level of Assist: 5 Gait Persons Needed: 1 Gait Assistive Device: FWW Wheelchair Training Does the Pt Use a Wheelchair?: No Wheelchair (FIM): 5 Wheelchair Distance: 3=150 ft Distance: 150' Wheelchair Level of Assist: 5 Wheel 50 ft with 2 turns (QC): 5 Wheel 150 ft (QC): 5 Type of Wheelchair: Manual Stair Training Stair Training: Handrails/: 2 handrails Stairs (FIM): 4 #of Steps: 8 1 Step (curb) (QC): 3 Stairs: Pattern: Step to Level of Assist: 4 (CGA provided to begin, then SBA) Mental Status/Objective Comprehension: 5 Expression: 5 Social Interaction: 6 Problem Solvin Memory: 4 ADL-Treatment Groomin Oral Hygiene (QC): 5 Bathin Bathing Location: L Arm, R Arm, L Upper Leg, R Upper Leg, L Lower Leg ( including foot), R Lower Leg (including foot), Chest, Abdomen, Buttocks, Perineal Area Shower/Bathe Self (QC): 4 Upper Extremity Dressin Upper Body Dressing (QC): 5 Lower Extremity Dressin Lower Body Dressing (QC): 4 On/Off Footwear (QC): 5 Toiletin (CGA while stnading) Toileting Hygiene (QC): 4 Toilet/Commode Transfer: 4 Toilet Transfer (QC): 4 Shower: 4 (CGA) Assessment/Plan Assessment and Plan Assess & Plan/Chief Complaint Assessment: Myopathy Vertigo acute on chronic Hypoglycemia Edema Leukocytosis of unknown source Plan: IRF protocol Return to home at [place] with family will be planned which is reasonable Monitor sugars but appears improved today so will hold on increasing insulin due to hypoglycemia hx Home meds Hold long-acting narcs Decrease insulin due to hypoglycemia but will increase back soon Evaluate how profound the memory recall is on Sunday Lasix for edema along with LACHELLE hose prn (1) Myopathy (2) Chronic back pain (3) Severe sepsis (4) Essential (primary) hypertension (5) Normocytic anemia (6) Thrombocytopenia (7) Acute renal failure (8) Insulin dependent diabetes mellitus (9) Volume depletion (10) COPD (chronic obstructive pulmonary disease) (11) Acute hyperkalemia (12) Acute kidney injury (13) Acute respiratory failure with hypoxemia (14) Altered mental status (15) Left bundle branch block (LBBB) determined by electrocardiography ANGÉLICA DAVIS DO August 05, 2018 08:24
--- NOTE | 2018-08-05 08:42 | ST Dysphagia Evaluation ---
Speech Evaluation-General Medical Diagnosis Acute respiratory failure, aspiration pneumonia Onset Date: Jul 22, 2018 Therapy Diagnosis Therapy Diagnosis: Oropharyngeal Dysphagia Precautions Precautions: Aspiration Precautions/Isolations: Fall Prevention, Standard Precautions, Pressure Ulcer Referral Referring Physician: Dr. Shrestha Reason for Referral: Evaluation/Treatment Medical History Pertinent Medical History: Arthritis, DM, HTN Reviewed History: Yes Social History Current Living Status: Significant Other Speech PLF/Current-Dysphagia Prior Level of Function The patient lived at home with his significant other. He states he ate and drank whatever he wanted at that time. Subjective The patient states he's been choking on coffee and hot liquids. Cognitive Status The patient is oriented to all concepts at this time. Oral Motor Skills Dentition: Natural, Tumbled Current Food Consistancy: Regular, Thin Liquids Ability to Follow Directions: Good Oral Expression Ability: No Impairment Face Facial Symmetry: Symmetrical Oral-Facial Assessment Oral-Facial Dentition: Normal Lingual Protrusion: Normal Lingual ROM: Normal Lingual Strength: Normal Gag Reflex Response: Normal Pharynx Velopharyngeal Move.: Normal Volitional Dry Swallow: Yes Voluntary Cough: Yes Can Clear Throat Volitionally: Yes Dysphagia Evaluation Consistencies Presented: Thin Liquid, [place] Thick Liquid Pharyngeal Phase: Swallows Too Rapidly Patient is noted to cough post swallow with thin liquids (hot coffee) Funct. Velo/Pharyngeal Symptom: Cough After Swallow Dietary Recommendations: Regular Liquid Recommendations: [place] Consistancy Swallowing Precautions: Alternate Liquids/Solids, Decreased Rate of Oral Intake , Liquids from Cup, Small Bites and Sips, Sitting Upright 90 Degrees, Sitting 90 Degrees 30 Post Intake Dysphagia Evaluation Summary The patient has been receiving skilled ST for dysphagia since his admission to the ARU. Nursing reported this am that the patient has been choking on hot liquids and had been ordered a f/u Bedside Dysphagia Evaluation. The evaluation was completed this am. The patient has a tendency to drink and eat too quickly. He was provided trials of thin liquids (hot coffee) and nectar consistency (hot coffee) The patient choked post swallow on the thin. He was able to cough/ clear. He had no difficulty with the nectar consistency. The patient is being changed to a nectar consistency for his liquids. This information was provided for his nurse Sola to change in his orders. His diet level will remain regular at this time. Barriers to Learning None identified at this time. Speech Short Term Goals Short Term Goals Short Term Goals 1) The patient will tolerate the least restrictive diet level without s/s of aspiration at 90% or greater. 2) The patient will utilize compensatory strategies as trained with 90% or greater with minimal cues. 3) The patient will be able to recall new information related to himself with 90 % or greater given minimal cues. 4) The patient will be able to follow directions for safety with 90% or greater given minimal cues. Speech [employer] Goals Correction Goals The patient will maintain adequate nutrition/hydration via safe effective swallow function. The patient will improve his safety and independence in order to return home. Speech-Plan Patient/Family Goals Patient/Family Goals: The patient will return to his home with his significant other post rehab. Treatment Plan Speech Therapy Treatment Plan: Continue Plan of Care Treatment also consisted of memory tasks related to the compensatory strategy training. Patient completed at 80% with min to mod verbal cuing. Treatment Duration: August 09, 2018 Frequency: 5 times per week Estimated Hrs Per Day: .5 hour per day Rehab Potential: Fair Barriers to Learning: None identified at this time. Pt/Family Agrees to Plan: Yes Safety Risks/Education Teaching Recipient: Patient Teaching Methods: Discussion Response to Teaching: Verbalize Understanding Education Topics Provided: Safety with oral intake. Time Speech Therapy Time In: 08:30 Speech Therapy Time Out: 09:00 Total Billed Time: 30 Billed Treatment Time 1, ANICETO PARIKH [facility] ST August 05, 2018 08:42
[2018-08-05] MEDS: VITAMIN D3 1,000 UNITS (CHOLECALCIFEROL) TABLET PO SCH (09:10)
[2018-08-05] MEDS: amLODIPine 10 MG (NORVASC) TAB PO SCH (09:10)
[2018-08-05] MEDS: GABAPENTIN 600 MG (NEURONTIN) TAB PO SCH ×3 (09:10→20:40)
[2018-08-05] MEDS: meTOproloL SUCCINATE 50 MG (TOPROL XL) TAB PO SCH (09:10)
[2018-08-05] MEDS: ETODOLAC 300 MG (LODINE) CAP PO SCH ×2 (09:10→20:40)
[2018-08-05] MEDS: GLIMEPIRIDE 4 MG (AMARYL) TAB PO SCH ×2 (09:10→20:40)
[2018-08-05] MEDS: MECLIZINE 25 MG (ANTIVERT) TAB PO SCH ×4 (09:11→20:39)
[2018-08-05] MEDS: FLUTICASONE NASAL SPRAY (FLONASE) 16 GM BTL NS SCH (09:16)
--- NOTE | 2018-08-05 10:08 | Progress Note-Cardiology ---
Cardiology SOAP Progress Note Subjective: Up to shower. Feels breathing has improved. No c/o CP or palpitations. No c/ o syncope or near syncope. Objective: I&O/Vital Signs 08/05/18 08/05/18 08/05/18 08/06/18 20:50 20:50 20:59 05:56 Temp 97.3 Pulse 83 Resp 18 B/P (MAP) 121/79 (93) Pulse Ox 98 99 98 O2 Delivery Nasal Cannula Nasal Cannula Nasal Cannula Room Air O2 Flow Rate 2.00 2.00 2.00 08/06/18 06:35 Pulse Ox 94 O2 Delivery Nasal Cannula O2 Flow Rate 2.00 08/06/18 00:00 Intake Total 1600 ml Output Total 1000 ml Balance 600 ml Weight (Pounds): 265 Weight (Ounces): 8.0 Weight (Calculated Kilograms): 120.881769 Constitutional: AAO x 3, well-developed, well-nourished Respiratory: wheezing, other (fair bilat air entry, diminished at the bases, prolonged exp phase) Cardiovascular: regular rate-rhythm, S1 and S2, systolic murmur (soft JESUS at card base) Gastrointestional: No tender; soft; No guarding, No rebound; audible bowel sounds Extremities: no lower extremity edema bilateral Neurologic/Psychiatric: no motor/sensory deficits, alert, normal mood/affect, oriented x 3, grossly intact, power is 5/5 both on sides Skin: No rash on exposed areas, No ulcerations on exposed areas Results/Procedures: Labs Laboratory Tests 08/05/18 10:41: Potassium Level 5.4H 08/05/18 12:05: Glucometer 115H 08/05/18 16:20: Glucometer 113H 08/05/18 20:54: Glucometer 142H 08/06/18 05:25: Glucometer 172H Laboratory Tests 08/05/18 05:10 08/05/18 10:41 A/P: Assessment: Acute resp failure in late June and early July 2018, probably due to aspiration pneumonia, now resolved Probable COPD Acute renal failure in late June and early July 2018 - resolved Echo of 07/23/18: LVEF 60-65%, mild conc LVH, grade 1 max dysfunction LBBB DM Chronic narcotic use d/t chronic back pain Symptoms of bilat leg claudication Plan: * Focus of CV management currently is on risk factor mod; this was discussed and advised again today * Does have risk factors for CAD and symptoms of leg claudication. Cor and leg circ w/u is recommended after stabilization of current issues (post discharge) BRE JETER August 05, 2018 10:08
[2018-08-05] MEDS: ENOXAPARIN 40 MG/0.4 ML (LOVENOX) SYR SC SCH (11:10)
--- NOTE | 2018-08-05 12:03 | Physical Therapy Daily Note ---
PT Daily Note-Current Subjective Pt. is inquiring about being up ad rafa. Pt. is anxious to go home . States he feels he could be on O2 as needed and do well. This BRICK HANDLER spoke with nursing and RT. OK'd to trial gait and activity on room air and check sats. Pain Location: No Pain Reported Mental Status Patient Orientation: Normal For Age Attachments: Oxygen (briefly 2L) Transfers Therapy Code Descriptions/Definitions Functional [place] Measure: 0=Not Assessed/NA 4=Minimal Assistance 1=Total Assistance 5=Supervision or Setup 2=Maximal Assistance 6=Modified [place] 3=Moderate Assistance 7=Complete [place] Therapy Quality Codes: 6 Independent with activity with or without an assistive device 5 Patient requires set up or clean up by helper. Patient completes activity by themselves 4 Supervision or touching assist (CGA). [place] provide cues , steadying assist 3 The helper provides less than half the effort to complete the activity 2 The helper provides more than half the effort to complete the activity 1 Dependent. The helper does all the effort to complete an activity 7 Patient refused to complete or attempt activity 9 The patient did not perform the activity before the current illness or injury 88 Not attempted due to Medical conditions or safety concerns Transfers (B, C, W/C) (FIM): 6 Scootin Rollin Supine to/from Sit: 6 Sit to/from Stand: 6 Bed to/from Chair: 6 Weight Bearing Right Lower Extremity: Right Weight Bearing/Tolerated Left Lower Extremity: Left Weight Bearing/Tolerated Gait Training Does the Patient Walk?: Yes Gait (FIM): 6 Distance (FIM): 3=150 ft (160x3) Gait Level of Assist: 6 Gait Persons Needed: 0 Gait Assistive Device: FWW sats at 94% and 97% on room air for gait and exercise, no LOB Exercises Seated Therapy Exercises: Ankle pumps, Sit to stand, Long arc quads, Hip flexion, Hip abd/add Seated Reps: 15 NuStep Minutes: 10 NuStep Workload: 2 Assessment Current Status: Good Progress O2 sats steady at 95%> with rm air and gait PT Short Term Goals Short Term Goals Time Frame: August 06, 2018 Transfers (B,C,W/C) (FIM): 5 Gait (FIM): 5 Gait Distance Comment: 200' Gait Level of Assist: 5 Gait Assistive Device: FWW Wheelchair Distance: 150' PT Senior Care Goals Party Supply Specialist Goals PT Senior Care Goals Time Frame: August 20, 2018 Transfers (B,C,W/C) (FIM): 6 Sit to Lying (QC): 6 Lying-Sitting on Side/Bed(QC): 6 Sit to Stand (QC): 6 Rollin Roll Left to Right (QC): 6 Chair/Jtd-oz-Ybmsm Xfer(QC): 6 Car Transfer (QC): 6 Gait (FIM): 6 Distance: 300' Walk 10 feet (QC): 6 Walk 10ft-Uneven Surface(QC): 6 Walk 50ft with 2 Turns (QC): 6 Walk 150 ft (QC): 6 Gait Level of Assist: 6 Gait Assistive Device: FWW Stairs (FIM): 2 # of Steps: 4 1 Step (curb) (QC): 4 4 Steps (QC): 4 Stairs Level Of Assist: 5 PT Plan Treatment/Plan Treatment Plan: Continue Plan of Care Treatment Plan: Bed Mobility, Education, Functional Activity Imani, Functional Strength, Group Therapy, Gait, Safety, Therapeutic Exercise, Transfers Treatment Duration: August 20, 2018 Frequency: At least 5 of 7 days/Wk (IRF) Estimated Hrs Per Day: 1.5 hours per day Patient and/or Family Agrees t: Yes Safety Risks/Education Patient Education: Gait Training, Transfer Techniques, Correct Positioning, Safety Issues Teaching Recipient: Patient Teaching Methods: Demonstration, Discussion Response to Teaching: Verbalize Understanding, Return Demonstration, Reinforcement Needed discussed safety while using O2 extended tubing etc and use of O2 as needed Time/GCodes Time In: 1100 Time Out: 1200 Total Billed Treatment Time: 60 Total Billed Treatment 1,EX25m,GT35m G Codes Necessary: KIERSTEN Gonzalez BRICK HANDLER August 05, 2018 12:03
--- NOTE | 2018-08-05 12:59 | Occupational Ther Daily Note ---
OT Current Status-Daily Note Subjective No pain reported. Appearance Pt. sitting on side of bed when OT entered room. Agrees to work with OT. Mental Status/Objective Patient Orientation: Person, Place, Time, Situation Therapy Code Descriptions/Definitions Functional [place] Measure: 0=Not Assessed/NA 4=Minimal Assistance 1=Total Assistance 5=Supervision or Setup 2=Maximal Assistance 6=Modified [place] 3=Moderate Assistance 7=Complete [place] ADL-Treatment Therapy Code Descriptions/Definitions Functional [place] Measure: 0=Not Assessed/NA 4=Minimal Assistance 1=Total Assistance 5=Supervision or Setup 2=Maximal Assistance 6=Modified [place] 3=Moderate Assistance 7=Complete [place] Therapy Quality Codes: 6 Independent with activity with or without an assistive device 5 Patient requires set up or clean up by helper. Patient completes activity by themselves 4 Supervision or touching assist (CGA). [place] provide cues , steadying assist 3 The helper provides less than half the effort to complete the activity 2 The helper provides more than half the effort to complete the activity 1 Dependent. The helper does all the effort to complete an activity 7 Patient refused to complete or attempt activity 9 The patient did not perform the activity before the current illness or injury 88 Not attempted due to Medical conditions or safety concerns Grooming (FIM): 6 (Pt. is able to brush hair and teeth at sink with Mod I.) Oral Hygiene (QC): 5 Bathing (FIM): 5 (SBA in shower.) Shower/Bathe Self (QC): 4 Upper Body (FIM): 5 Upper Body Dressing (QC): 4 Lower Body Dressing (FIM): 5 Lower Body Dressing (QC): 4 On/Off Footwear (QC): 4 Transfers (B, C, W/C) (FIM): 6 (Mod I with safety concerns to manage walker in room.) Other Treatment Pt. ambulated to therapy gym after shower with SBA. Tolerated 10 minutes on armbike at mod resistance. Donned 1 lb. wrist weights and completed fine motor activity with reaching to increase overall endurance/strength. Tolerated all this well with no difficulty. Completed trivia while performing UE tasks. Trivia consisted of questions about things he was interested in. This worked on cognition and memory. Tolerated this well. Ambulated back to room. Education OT Patient Education: Correct positioning, Exercise program, Modified ADL techniques, Progress toward Goal/Update tx plan, Purpose of tx/functional activities, Reviewed precautions, Rehab process, Transfer techniques Teaching Recipient: Patient Teaching Methods: Demonstration, Discussion Response to Teaching: Verbalize Understanding, Return Demonstration OT Short Term Goals Short Term Goals Time Frame: August 06, 2018 Grooming(FIM): 5 Bathing(FIM): 4 Lower Body Dressing(FIM): 4 Toileting(FIM): 4 Transfers (B,C,W/C) (FIM): 5 Toilet/Commode Transfer(FIM): 4 Shower Transfer(FIM): 4 Additional Short Term Goals: 1-Demonstrate ADL Tasks, 2-Verbalize Understanding , 3-ImproveStrength/Imani 1=Demonstrate adherence to instructed precautions during ADL tasks. 2=Patient will verbalize/demonstrate understanding of assistive devices/ modifications for ADL. 3=Patient will improve strength/tolerance for activity to enable patient to perform ADL's. OT Financial Economist Goals Financial Economist Goals Time Frame: August 20, 2018 Eating (FIM): 6 Eating (QC): 6 Groomin Oral Hygiene (QC): 6 Bathing(FIM): 5 Shower/Bathe Self (QC): 5 Upper Body Dressing(FIM): 6 Upper Body Dressing (QC): 6 Lower Body Dressing(FIM): 6 Lower Body Dressing (QC): 6 On/Off Footwear (QC): 6 Toileting(FIM): 6 Toileting Hygiene (QC): 6 Toilet/Commode Transfer(FIM): 6 Toilet/Commode Transfer (QC): 6 Shower Transfer(FIM): 5 Additional Goals: 1-Demonstrate ADL Tasks, 2-Verbalize Understanding, 3- ImproveStrength/[place]mani 1=Demonstrate adherence to instructed precautions during ADL tasks. 2=Patient will verbalize/demonstrate understanding of assistive devices/ modifications for ADL. 3=Patient will improve strength/tolerance for activity to enable patient to perform ADL's. OT Education/Plan Problem List/Assessment Assessment: Decreased Activ Tolerance, Impaired I ADL's, Impaired Self-Care Skills Discharge Recommendations Plan/Recommendations: Continue POC Therapy D/C Recommendations: Home w/ Family Support Treatment Plan/Plan of Care Treatment,Training & Education: Yes Patient would benefit from OT for education, treatment and training to promote independence in ADL's, mobility, safety and/or upper extremity function for ADL' s. Plan of Care: ADL Retraining, Caregiver Training, Functional Mobility, Group Exercise/Act as Ind, UE Funct Exercise/Act Treatment Duration: August 20, 2018 Frequency: At least 5 of 7 days/Wk (IRF) Estimated Hrs Per Day: 1.5 hours per day Agreement: Yes Rehab Potential: Fair Time/GCodes Start Time: 09:45 Stop Time: 11:00 Total Time Billed (hr/min): 75 Billed Treatment Time 1, ADL x 45minutes, FA x 30minutes GERARD WHITLEY OT August 05, 2018 12:59
--- NOTE | 2018-08-05 14:16 | Physical Therapy Daily Note ---
PT Daily Note-Current Subjective Pt. is very happy that he is doing so well and agrees to Rx. States he is happy to be off O2 and feels much more confident about going home Pain Location: No Pain Reported Mental Status Patient Orientation: Normal For Age Transfers Therapy Code Descriptions/Definitions Functional [place] Measure: 0=Not Assessed/NA 4=Minimal Assistance 1=Total Assistance 5=Supervision or Setup 2=Maximal Assistance 6=Modified [place] 3=Moderate Assistance 7=Complete [place] Therapy Quality Codes: 6 Independent with activity with or without an assistive device 5 Patient requires set up or clean up by helper. Patient completes activity by themselves 4 Supervision or touching assist (CGA). [place] provide cues , steadying assist 3 The helper provides less than half the effort to complete the activity 2 The helper provides more than half the effort to complete the activity 1 Dependent. The helper does all the effort to complete an activity 7 Patient refused to complete or attempt activity 9 The patient did not perform the activity before the current illness or injury 88 Not attempted due to Medical conditions or safety concerns Transfers (B, C, W/C) (FIM): 6 All TRFs Mod I Weight Bearing Right Lower Extremity: Right Weight Bearing/Tolerated Left Lower Extremity: Left Weight Bearing/Tolerated Gait Training Gait Assistive Device: FWW 165x2 on room air with Sats at 96%. Exercises Supine Ex: Bridging, Ankle pumps, Quad Set, Rolling, Glut sets, Heel Slides, Short Arc Quads, Scooting, Straight leg raise, Hip abd/add Supine Reps: 15 Assessment Current Status: Good Progress up ad rafa , instructed to let nursing know if he has any SOB PT Short Term Goals Short Term Goals Time Frame: August 06, 2018 Transfers (B,C,W/C) (FIM): 5 Gait (FIM): 5 Gait Distance Comment: 200' Gait Level of Assist: 5 Gait Assistive Device: FWW Wheelchair Distance: 150' PT Mule Spinner Goals Mule Spinner Goals PT [facility] Goals Time Frame: August 20, 2018 Transfers (B,C,W/C) (FIM): 6 Sit to Lying (QC): 6 Lying-Sitting on Side/Bed(QC): 6 Sit to Stand (QC): 6 Rollin Roll Left to Right (QC): 6 Chair/Ctm-dm-Lvlhb Xfer(QC): 6 Car Transfer (QC): 6 Gait (FIM): 6 Distance: 300' Walk 10 feet (QC): 6 Walk 10ft-Uneven Surface(QC): 6 Walk 50ft with 2 Turns (QC): 6 Walk 150 ft (QC): 6 Gait Level of Assist: 6 Gait Assistive Device: FWW Stairs (FIM): 2 # of Steps: 4 1 Step (curb) (QC): 4 4 Steps (QC): 4 Stairs Level Of Assist: 5 PT Plan Treatment/Plan Treatment Plan: Continue Plan of Care Treatment Plan: Bed Mobility, Education, Functional Activity Imani, Functional Strength, Group Therapy, Gait, Safety, Therapeutic Exercise, Transfers Treatment Duration: August 20, 2018 Frequency: At least 5 of 7 days/Wk (IRF) Estimated Hrs Per Day: 1.5 hours per day Patient and/or Family Agrees t: Yes Safety Risks/Education Patient Education: Gait Training, Transfer Techniques, Correct Positioning, Safety Issues Teaching Recipient: Patient Teaching Methods: Demonstration Response to Teaching: Verbalize Understanding, Return Demonstration Time/GCodes Time In: 1345 Time Out: 1405 Total Billed Treatment Time: 20 Total Billed Treatment 1,EX20m G Codes Necessary: KIERSTEN Gonzalez GEOPHYSICAL DRAFTER August 05, 2018 14:16
[2018-08-05 18:02] VITALS: BP 104/53
[2018-08-05] MEDS: CYCLOBENZAPRINE 10 MG (FLEXERIL) TAB PO SCH (20:39)
[2018-08-05] MEDS: AMITRIPTYLINE 50 MG (ELAVIL) TAB PO SCH (20:39)
[2018-08-06] MEDS: RT-ALBUTEROL/IPRATROPIUM 3 ML (DUONEB) VIAL INH SCH ×7 (03:36→22:13)
[2018-08-06 05:56] VITALS: BP 121/79
[2018-08-06] MEDS: TROSPIUM 20 MG (SANCTURA) TAB PO SCH ×2 (06:45→17:23)
[2018-08-06] MEDS: predniSONE 20 MG TAB PO SCH (06:45)
[2018-08-06] MEDS: PANTOPRAZOLE 40 MG (PROTONIX) TAB PO SCH (06:45)
[2018-08-06] MEDS: inSUlin ASPART (NovoLOG) 1 UNIT/0.01 ML (CHARGE PER UNIT) SC SCH ×3 (06:46→15:45)
--- NOTE | 2018-08-06 08:30 | PM&R Progress Note ---
Subjective HPI/CC On Admission Date Seen by Provider: August 06, 2018 Time Seen by Provider: 08:30 Chief complaint: Severe Weakness HPI: This is a 62yoWM clinic Pt of Dr. Nuno who presents to inpatient rehab due to sever myopathy due to critical illness and intubation last week after septic shock, acute kidney injury, and hyperkalemia. He was able to be extubated under Dr. Deal's expertise last Sunday and was well enough to move down to fourth floor to continue IV antibiotics of Meropenem along with supportive care and oxygen. He doesn't use oxygen at home. He is very weak, his prior level of functioning was independent with ADLs and ambulation without assistive devices and currently he is participating in therapy but overall very weak and requiring inpatient rehab. His bowels are moving and urinary catheter will be discontinued upon admission to rehab. Subjective/Events-last exam I will have speech therapy complete a slum score since his immediate recall is very suppressed. Oxygen supplementation is still in question of whether he has it at home or he doesn't have it have home. Coccyx decubitus ulcer will be monitored closely since it is causing him some discomfort. Overall his labs remain stable, potassium remains and 5.4 but kidney function is doing well from that perspective. Blood sugars are sometimes labile but he has a history of significant hypoglycemia so we will monitor those and only increase insulin periodically and gently so. Conferred with RN Participating in therapy Review of Systems General: Fatigue Neurological: Weakness, Numbness, Incoordination Objective Exam Vital Signs Vital Signs Date Time Temp Pulse Resp B/P (MAP) Pulse Ox O2 Delivery O2 Flow Rate FiO2 08/06/18 18:00 99.6 94 18 125/80 (95) 94 Room Air 08/06/18 10:41 2.00 Capillary Refill : General Appearance: No Apparent Distress, WD/WN, Chronically ill HEENT: PERRL/EOMI, Normal ENT Inspection, Pharynx Normal, Moist Mucous Membranes Neck: Full Range of Motion, Normal Inspection, Non Tender, Supple Respiratory: Chest Non Tender, Lungs Clear, Normal Breath Sounds, No Accessory Muscle Use, No Respiratory Distress, Decreased Breath Sounds Cardiovascular: Regular Rate, Rhythm, No Edema, No Gallop, No JVD, No Murmur Gastrointestinal: Normal Bowel Sounds, No Organomegaly, No Pulsatile Mass, Non Tender, Soft Back: Normal Inspection, No CVA Tenderness, No Vertebral Tenderness Extremity: Normal Capillary Refill, Normal Inspection, Normal Range of Motion, Non Tender, No Calf Tenderness, Pedal Edema Neurologic/Psychiatric: Alert, Oriented x3, No Motor/Sensory Deficits ( generalized weakness all extremities), Normal Mood/Affect, Disoriented Skin: Normal Color, Warm/Dry Lymphatic: No Adenopathy Results/Procedures Lab Patient resulted labs reviewed. FIM Transfers Therapy Code Descriptions/Definitions Functional [place] Measure: 0=Not Assessed/NA 4=Minimal Assistance 1=Total Assistance 5=Supervision or Setup 2=Maximal Assistance 6=Modified [place] 3=Moderate Assistance 7=Complete [place] Therapy Quality Codes: 6 Independent with activity with or without an assistive device 5 Patient requires set up or clean up by helper. Patient completes activity by themselves 4 Supervision or touching assist (CGA). [place] provide cues , steadying assist 3 The helper provides less than half the effort to complete the activity 2 The helper provides more than half the effort to complete the activity 1 Dependent. The helper does all the effort to complete an activity 7 Patient refused to complete or attempt activity 9 The patient did not perform the activity before the current illness or injury 88 Not attempted due to Medical conditions or safety concerns Transfers (B, C, W/C) (FIM): 6 Scootin Rollin Roll Left to Right (QC): 4 Supine to/from Sit: 6 Sit to/from Stand: 6 Sit to Lying (QC): 4 Sit to Stand (QC): 5 Chair/Ecj-nk-Rtcry Xfer(QC): 4 Bed to/from Chair: 6 Car Transfer (QC): 5 Gait Training Does the Patient Walk?: Yes Gait (FIM): 6 Distance (FIM): 3=150 ft (160x3) Distance: 400' Walk 10 feet (QC): 5 Walk 50 ft with 2 Turns(QC): 5 Walk 150 ft (QC): 5 Walking 10ft/uneven surface-QC: 4 Gait Level of Assist: 6 Gait Persons Needed: 0 Gait Assistive Device: FWW Wheelchair Training Does the Pt Use a Wheelchair?: No Wheelchair (FIM): 5 Wheelchair Distance: 3=150 ft Distance: 150' Wheelchair Level of Assist: 5 Wheel 50 ft with 2 turns (QC): 5 Wheel 150 ft (QC): 5 Type of Wheelchair: Manual Stair Training Stair Training: Handrails/: 2 handrails Stairs (FIM): 4 #of Steps: 8 1 Step (curb) (QC): 3 Stairs: Pattern: Step to Level of Assist: 4 (CGA provided to begin, then SBA) Mental Status/Objective Comprehension: 5 Expression: 5 Social Interaction: 6 Problem Solvin Memory: 4 ADL-Treatment Groomin (Pt. is able to brush hair and teeth at sink with Mod I.) Oral Hygiene (QC): 5 Bathin (SBA in shower.) Bathing Location: L Arm, R Arm, L Upper Leg, R Upper Leg, L Lower Leg ( including foot), R Lower Leg (including foot), Chest, Abdomen, Buttocks, Perineal Area Shower/Bathe Self (QC): 4 Upper Extremity Dressin Upper Body Dressing (QC): 4 Lower Extremity Dressin Lower Body Dressing (QC): 4 On/Off Footwear (QC): 4 Toiletin (CGA while stnading) Toileting Hygiene (QC): 4 Toilet/Commode Transfer: 4 Toilet Transfer (QC): 4 Shower: 4 (CGA) Assessment/Plan Assessment and Plan Assess & Plan/Chief Complaint Assessment: Myopathy Vertigo acute on chronic Hypoglycemia Edema Leukocytosis of unknown source Plan: IRF protocol Return to home at [place] with family will be planned which is reasonable Monitor sugars but appears improved today so will hold on increasing insulin due to hypoglycemia hx Home meds Hold long-acting narcs Decrease insulin due to hypoglycemia but will increase back soon Evaluate how profound the memory recall is via speech therapy evaluation Lasix for edema along with LACHELLE damon prn (1) Myopathy (2) Chronic back pain (3) Severe sepsis (4) Essential (primary) hypertension (5) Normocytic anemia (6) Thrombocytopenia (7) Acute renal failure (8) Insulin dependent diabetes mellitus (9) Volume depletion (10) COPD (chronic obstructive pulmonary disease) (11) Acute hyperkalemia (12) Acute kidney injury (13) Acute respiratory failure with hypoxemia (14) Altered mental status (15) Left bundle branch block (LBBB) determined by electrocardiography ANGÉLICA DAVIS DO August 06, 2018 08:30
--- NOTE | 2018-08-06 09:43 | Speech Therapy Daily Note ---
Speech Daily Progress Note Subjective Date Seen by Provider: August 06, 2018 Time Seen by Provider: 00:30 The patient was resting in his bed when I entered the room. Objective The patient completed the SLUMS Examination (per Dr. Shrestha's request). The patient scored a 27/30 within the normal range. The patient also completed compensatory strategies training for safest oral intake. Currently on a regular diet with nectar consistency liquids. Assessment Assessment Current Status: Good Progress Communication Comprehension: 5 Expression: 5 Social Cognition Social Interaction: 6 Problem Solvin Memory: 4 Speech Short Term Goals Short Term Goals Short Term Goals 1) The patient will tolerate the least restrictive diet level without s/s of aspiration at 90% or greater. 2) The patient will utilize compensatory strategies as trained with 90% or greater with minimal cues. 3) The patient will be able to recall new information related to himself with 90 % or greater given minimal cues. 4) The patient will be able to follow directions for safety with 90% or greater given minimal cues. Speech Director Emergency Goals Director Emergency Goals The patient will maintain adequate nutrition/hydration via safe effective swallow function. The patient will improve his safety and independence in order to return home. Speech-Plan Patient/Family Goals Patient/Family Goals: The patient plans on returning home post rehab. Treatment Plan Speech Therapy Treatment Plan: Continue Plan of Care The patient has made good progress as a result of skilled ST services. Treatment Duration: August 09, 2018 Frequency: 5 times per week Estimated Hrs Per Day: .5 hour per day Rehab Potential: Fair Barriers to Learning: None identified at this time. Pt/Family Agrees to Plan: Yes Safety Risks/Education Teaching Recipient: Patient Teaching Methods: Discussion Response to Teaching: Verbalize Understanding Education Topics Provided: Safety of oral intake and utilization of thickener upon his return home. Time Speech Therapy Time In: 09:00 Speech Therapy Time Out: 09:30 Total Billed Time: 30 Billed Treatment Time 1, ANICETO, MANSOOR Paulson August 06, 2018 09:43
--- NOTE | 2018-08-06 09:44 | Progress Note-Cardiology ---
Cardiology SOAP Progress Note Subjective: Sitting up on the bedside. Denies any c/o CP, palpitations, syncope or near syncope. Reports dyspnea is improving. Reports dizziness with changes in position. Objective: I&O/Vital Signs 08/06/18 08/06/18 08/06/18 08/06/18 05:56 06:35 09:00 10:41 Temp 97.3 Pulse 83 Resp 18 B/P (MAP) 121/79 (93) Pulse Ox 98 94 98 O2 Delivery Room Air Nasal Cannula Nasal Cannula Nasal Cannula O2 Flow Rate 2.00 2.00 2.00 08/06/18 08/06/18 13:22 14:23 Pulse 93 96 105 B/P (MAP) 99/62 (74) 97/59 (72) 98/61 (73) Pulse Ox 91 O2 Delivery Room Air 08/06/18 00:00 Intake Total 1600 ml Output Total 1000 ml Balance 600 ml Weight (Pounds): 265 Weight (Ounces): 8.0 Weight (Calculated Kilograms): 120.084733 Constitutional: AAO x 3, well-developed, well-nourished Respiratory: wheezing, other (fair bilat air entry, diminished at the bases, prolonged exp phase) Cardiovascular: regular rate-rhythm, S1 and S2, systolic murmur (soft JESUS at card base) Gastrointestional: No tender; soft; No guarding, No rebound; audible bowel sounds Extremities: no lower extremity edema bilateral Neurologic/Psychiatric: no motor/sensory deficits, alert, normal mood/affect, oriented x 3, grossly intact, power is 5/5 both on sides Skin: No rash on exposed areas, No ulcerations on exposed areas Results/Procedures: Labs Laboratory Tests 08/05/18 16:20: Glucometer 113H 08/05/18 20:54: Glucometer 142H 08/06/18 05:25: Glucometer 172H 08/06/18 11:04: Glucometer 104 A/P: Assessment: Acute resp failure in late June and early July 2018, probably due to aspiration pneumonia, now resolved Probable COPD Acute renal failure in late June and early July 2018 - resolved Echo of 07/23/18: LVEF 60-65%, mild conc LVH, grade 1 max dysfunction LBBB DM Chronic narcotic use d/t chronic back pain Symptoms of bilat leg claudication Dizziness with position changes Plan: * Focus of CV management currently is on risk factor mod; this was discussed and advised again today * Does have risk factors for CAD and symptoms of leg claudication. Cor and leg circ w/u is recommended after stabilization of current issues (post discharge) * C/O dizziness with position changes - check ortho v/s Physician Assessment Physician Assessment No cp or palp or syncope. Chronic exertional shortness of breath. Notes postural dizziness Lungs: fair to good air entry Cor: reg Ext: no c/c/e A&R * As documented in our note above that I updated (italics) and as noted below * D/c amlodipine because of postural dizziness and relatively low bp * Monitor labs BRE JETER FOOD SELECTOR August 06, 2018 09:44 RAMON JOYCE MD FACP FAC CCDS August 06, 2018 14:58
[2018-08-06] MEDS: GABAPENTIN 600 MG (NEURONTIN) TAB PO SCH ×3 (09:49→21:07)
[2018-08-06] MEDS: GLIMEPIRIDE 4 MG (AMARYL) TAB PO SCH ×2 (09:49→21:07)
[2018-08-06] MEDS: meTOproloL SUCCINATE 50 MG (TOPROL XL) TAB PO SCH (09:49)
[2018-08-06] MEDS: MECLIZINE 25 MG (ANTIVERT) TAB PO SCH ×4 (09:49→21:09)
[2018-08-06] MEDS: amLODIPine 10 MG (NORVASC) TAB PO SCH (09:49)
[2018-08-06] MEDS: VITAMIN D3 1,000 UNITS (CHOLECALCIFEROL) TABLET PO SCH (09:49)
[2018-08-06] MEDS: ETODOLAC 300 MG (LODINE) CAP PO SCH ×2 (09:49→21:08)
[2018-08-06] MEDS: FLUTICASONE NASAL SPRAY (FLONASE) 16 GM BTL NS SCH (09:50)
[2018-08-06] MEDS: RT-ADVAIR HFA 115/21 MCG PER PUFF IH SCH ×2 (10:41→20:01)
[2018-08-06] MEDS: ENOXAPARIN 40 MG/0.4 ML (LOVENOX) SYR SC SCH (11:07)
--- NOTE | 2018-08-06 12:10 | Physical Therapy Daily Note ---
PT Daily Note-Current Subjective Pt sitting in recliner upon arrival. Pt agrees to PT. Mental Status Patient Orientation: Person, Place, Situation Transfers Therapy Code Descriptions/Definitions Functional [place] Measure: 0=Not Assessed/NA 4=Minimal Assistance 1=Total Assistance 5=Supervision or Setup 2=Maximal Assistance 6=Modified [place] 3=Moderate Assistance 7=Complete [place] Therapy Quality Codes: 6 Independent with activity with or without an assistive device 5 Patient requires set up or clean up by helper. Patient completes activity by themselves 4 Supervision or touching assist (CGA). [place] provide cues , steadying assist 3 The helper provides less than half the effort to complete the activity 2 The helper provides more than half the effort to complete the activity 1 Dependent. The helper does all the effort to complete an activity 7 Patient refused to complete or attempt activity 9 The patient did not perform the activity before the current illness or injury 88 Not attempted due to Medical conditions or safety concerns Scootin Supine to/from Sit: 5 Sit to/from Stand: 5 Sit to Stand (QC): 5 Weight Bearing Right Lower Extremity: Right Weight Bearing/Tolerated Left Lower Extremity: Left Weight Bearing/Tolerated Gait Training Does the Patient Walk?: Yes Gait (FIM): 5 Distance (FIM): 3=150 ft Distance: 350' Walk 10 feet (QC): 5 Walk 50 ft with 2 Turns(QC): 5 Walk 150 ft (QC): 5 Gait Level of Assist: 5 Gait Persons Needed: 1 Gait Assistive Device: FWW Wheelchair Training Does the Pt Use a Wheelchair?: No Stair Training Stair Training: Handrails/: 2 handrails Stairs (FIM): 5 #of Steps: 12 1 Step (curb) (QC): 5 4 Steps (QC): 5 12 Steps (QC): 5 Stairs: Pattern: Reciprocal Level of Assist: 5 Exercises Standing: Heel/toe raises, Marching, Mini squats, Weight shifts Standing Reps: 15 NuStep Minutes: 15 NuStep Workload: 4 Treatments Pt transfers to standing and uses restroom before ambulating in hallway. Pt uses NuStep for 15m at WL 4 before short RB then Standing Ex at //bars. Pt ambulates in hallway on way to room. Pt resting at EOB with all needs met, awaiting lunch at end of tx. Assessment Current Status: Good Progress Pt has gotten stronger and would like to D/C on Sunday (08/09). PT Short Term Goals Short Term Goals Time Frame: August 06, 2018 Transfers (B,C,W/C) (FIM): 5 Gait (FIM): 5 Gait Distance Comment: 200' Gait Level of Assist: 5 Gait Assistive Device: FWW Wheelchair Distance: 150' PT Skilled Nursing Goals [place] Hand Goals PT Skilled Nursing Goals Time Frame: August 20, 2018 Transfers (B,C,W/C) (FIM): 6 Sit to Lying (QC): 6 Lying-Sitting on Side/Bed(QC): 6 Sit to Stand (QC): 6 Rollin Roll Left to Right (QC): 6 Chair/Ciu-kx-Npnpp Xfer(QC): 6 Car Transfer (QC): 6 Gait (FIM): 6 Distance: 300' Walk 10 feet (QC): 6 Walk 10ft-Uneven Surface(QC): 6 Walk 50ft with 2 Turns (QC): 6 Walk 150 ft (QC): 6 Gait Level of Assist: 6 Gait Assistive Device: FWW Stairs (FIM): 2 # of Steps: 4 1 Step (curb) (QC): 4 4 Steps (QC): 4 Stairs Level Of Assist: 5 PT Plan Problem List Problem List: Activity Tolerance Treatment/Plan Treatment Plan: Continue Plan of Care Treatment Plan: Bed Mobility, Education, Functional Activity Imani, Functional Strength, Group Therapy, Gait, Safety, Therapeutic Exercise, Transfers Treatment Duration: August 20, 2018 Frequency: At least 5 of 7 days/Wk (IRF) Estimated Hrs Per Day: 1.5 hours per day Patient and/or Family Agrees t: Yes Safety Risks/Education Patient Education: Gait Training, Transfer Techniques, Correct Positioning, Safety Issues Teaching Recipient: Patient Teaching Methods: Discussion Response to Teaching: Verbalize Understanding Time/GCodes Time In: 1100 Time Out: 1145 Total Billed Treatment Time: 45 Total Billed Treatment 1, GT (15m) & EX x2 (30m) G Codes Necessary: THERON Neves SENIOR SYSTEMS ADMINISTRATOR August 06, 2018 12:10
[2018-08-06 13:22] VITALS: BP_SYST 97; BP_SYST 98; BP_SYST 99; BP_DIAS 59; BP_DIAS 61; BP_DIAS 62
--- NOTE | 2018-08-06 13:23 | Occupational Ther Daily Note ---
OT Current Status-Daily Note Subjective No pain reported. Pt. states, "I'm actually feeling pretty good." Appearance Pt. sitting on side of bed. Agrees to shower. Mental Status/Objective Patient Orientation: Person, Place, Time, Situation Therapy Code Descriptions/Definitions Functional [place] Measure: 0=Not Assessed/NA 4=Minimal Assistance 1=Total Assistance 5=Supervision or Setup 2=Maximal Assistance 6=Modified [place] 3=Moderate Assistance 7=Complete [place] Attachments: Oxygen ADL-Treatment Therapy Code Descriptions/Definitions Functional [place] Measure: 0=Not Assessed/NA 4=Minimal Assistance 1=Total Assistance 5=Supervision or Setup 2=Maximal Assistance 6=Modified [place] 3=Moderate Assistance 7=Complete [place] Therapy Quality Codes: 6 Independent with activity with or without an assistive device 5 Patient requires set up or clean up by helper. Patient completes activity by themselves 4 Supervision or touching assist (CGA). [place] provide cues , steadying assist 3 The helper provides less than half the effort to complete the activity 2 The helper provides more than half the effort to complete the activity 1 Dependent. The helper does all the effort to complete an activity 7 Patient refused to complete or attempt activity 9 The patient did not perform the activity before the current illness or injury 88 Not attempted due to Medical conditions or safety concerns Grooming (FIM): 5 (Set up seated at sink.) Oral Hygiene (QC): 5 Bathing (FIM): 5 (SBA in shower to bathe all parts. Pt. does require cues at times to sit for safety.) Shower/Bathe Self (QC): 4 Upper Body (FIM): 5 Upper Body Dressing (QC): 4 Lower Body Dressing (FIM): 5 Lower Body Dressing (QC): 4 On/Off Footwear (QC): 4 Transfers (B, C, W/C) (FIM): 5 Shower Transfer(FIM): 5 Other Treatment Pt. agreed to shower in room. Pt. states that he usually only wears his oxygen at home at night, or if it is really hot outside. 02 sats at 98%. Pt. doffed oxygen to take a shower. 02 sats taken after shower. Sats at 96%. Pt. ambulated to therapy gym with walker without oxygen on. Monitored oxygen throughout treatment. Pt. completed 10 minutes on armbike at mod resistance. 02 sats at 92% after this. Ambulated back to room for pt. to talk with briefly. Pt. donned oxygen at this time. After visit, pt. took off oxygen again to ambulate approximately 300 feet in dining area. Pt. SBA with walker. Went back to room. Pt. donned oxygen again. All needs met back in room. Education OT Patient Education: Exercise program, Modified ADL techniques, Progress toward Goal/Update tx plan, Purpose of tx/functional activities, Reviewed precautions, Rehab process, Transfer techniques Teaching Recipient: Patient Teaching Methods: Demonstration, Discussion Response to Teaching: Verbalize Understanding, Return Demonstration OT Short Term Goals Short Term Goals Time Frame: August 06, 2018 Grooming(FIM): 5 Bathing(FIM): 4 Lower Body Dressing(FIM): 4 Toileting(FIM): 4 Transfers (B,C,W/C) (FIM): 5 Toilet/Commode Transfer(FIM): 4 Shower Transfer(FIM): 4 Additional Short Term Goals: 1-Demonstrate ADL Tasks, 2-Verbalize Understanding , 3-ImproveStrength/Imani 1=Demonstrate adherence to instructed precautions during ADL tasks. 2=Patient will verbalize/demonstrate understanding of assistive devices/ modifications for ADL. 3=Patient will improve strength/tolerance for activity to enable patient to perform ADL's. OT [facility] Goals Broiler Manager Goals Time Frame: August 20, 2018 Eating (FIM): 6 Eating (QC): 6 Groomin Oral Hygiene (QC): 6 Bathing(FIM): 5 Shower/Bathe Self (QC): 5 Upper Body Dressing(FIM): 6 Upper Body Dressing (QC): 6 Lower Body Dressing(FIM): 6 Lower Body Dressing (QC): 6 On/Off Footwear (QC): 6 Toileting(FIM): 6 Toileting Hygiene (QC): 6 Toilet/Commode Transfer(FIM): 6 Toilet/Commode Transfer (QC): 6 Shower Transfer(FIM): 5 Additional Goals: 1-Demonstrate ADL Tasks, 2-Verbalize Understanding, 3- ImproveStrength/Imani 1=Demonstrate adherence to instructed precautions during ADL tasks. 2=Patient will verbalize/demonstrate understanding of assistive devices/ modifications for ADL. 3=Patient will improve strength/tolerance for activity to enable patient to perform ADL's. OT Education/Plan Problem List/Assessment Assessment: Decreased Activ Tolerance, Impaired I ADL's, Impaired Self-Care Skills Discharge Recommendations Plan/Recommendations: Continue POC Therapy D/C Recommendations: Home w/ Family Support, Occupational Therapy Home Care Treatment Plan/Plan of Care Treatment,Training & Education: Yes Patient would benefit from OT for education, treatment and training to promote independence in ADL's, mobility, safety and/or upper extremity function for ADL' s. Plan of Care: ADL Retraining, Caregiver Training, Functional Mobility, Group Exercise/Act as Ind, UE Funct Exercise/Act Treatment Duration: August 20, 2018 Frequency: At least 5 of 7 days/Wk (IRF) Estimated Hrs Per Day: 1.5 hours per day Agreement: Yes Rehab Potential: Fair Time/GCodes Start Time: 09:30 Stop Time: 10:45 Total Time Billed (hr/min): 75 Billed Treatment Time 1, ADL x 45minutes, Ex x 15minutes, FA x 15minutes GERARD WHITLEY OT August 06, 2018 13:22
--- NOTE | 2018-08-06 15:19 | Physical Therapy Daily Note ---
PT Daily Note-Current Subjective Pt laying Supine in bed upon arrival, pt's mother is present. Pt agrees to PT. Mental Status Patient Orientation: Person, Place, Situation Transfers Therapy Code Descriptions/Definitions Functional [place] Measure: 0=Not Assessed/NA 4=Minimal Assistance 1=Total Assistance 5=Supervision or Setup 2=Maximal Assistance 6=Modified [place] 3=Moderate Assistance 7=Complete [place] Therapy Quality Codes: 6 Independent with activity with or without an assistive device 5 Patient requires set up or clean up by helper. Patient completes activity by themselves 4 Supervision or touching assist (CGA). [place] provide cues , steadying assist 3 The helper provides less than half the effort to complete the activity 2 The helper provides more than half the effort to complete the activity 1 Dependent. The helper does all the effort to complete an activity 7 Patient refused to complete or attempt activity 9 The patient did not perform the activity before the current illness or injury 88 Not attempted due to Medical conditions or safety concerns Scootin Supine to/from Sit: 5 Sit to/from Stand: 5 Sit to Stand (QC): 5 Weight Bearing Right Lower Extremity: Right Weight Bearing/Tolerated Left Lower Extremity: Left Weight Bearing/Tolerated Gait Training Does the Patient Walk?: Yes Gait (FIM): 5 Distance (FIM): 3=150 ft Distance: 400' Walk 10 feet (QC): 5 Walk 50 ft with 2 Turns(QC): 5 Walk 150 ft (QC): 5 Gait Level of Assist: 5 Gait Persons Needed: 1 Gait Assistive Device: FWW Wheelchair Training Does the Pt Use a Wheelchair?: No Exercises Supine Ex: Ankle pumps, Quad Set, Heel Slides, Short Arc Quads, Straight leg raise, Hip abd/add Supine Reps: 20 Treatments Pt ambulates in hallway then completes Supine Ex on mat before returning to room at end of tx. Pt has all needs met. Assessment Current Status: Good Progress Pt tolerates tx well and is improving with activity tolerance each tx. PT Short Term Goals Short Term Goals Time Frame: August 06, 2018 Transfers (B,C,W/C) (FIM): 5 Gait (FIM): 5 Gait Distance Comment: 200' Gait Level of Assist: 5 Gait Assistive Device: FWW Wheelchair Distance: 150' PT Long-Term Goals Long-Term Goals PT Long-Term Goals Time Frame: August 20, 2018 Transfers (B,C,W/C) (FIM): 6 Sit to Lying (QC): 6 Lying-Sitting on Side/Bed(QC): 6 Sit to Stand (QC): 6 Rollin Roll Left to Right (QC): 6 Chair/Gat-nz-Eheey Xfer(QC): 6 Car Transfer (QC): 6 Gait (FIM): 6 Distance: 300' Walk 10 feet (QC): 6 Walk 10ft-Uneven Surface(QC): 6 Walk 50ft with 2 Turns (QC): 6 Walk 150 ft (QC): 6 Gait Level of Assist: 6 Gait Assistive Device: FWW Stairs (FIM): 2 # of Steps: 4 1 Step (curb) (QC): 4 4 Steps (QC): 4 Stairs Level Of Assist: 5 PT Plan Problem List Problem List: Activity Tolerance Treatment/Plan Treatment Plan: Continue Plan of Care Treatment Plan: Bed Mobility, Education, Functional Activity Imani, Functional Strength, Group Therapy, Gait, Safety, Therapeutic Exercise, Transfers Treatment Duration: August 20, 2018 Frequency: At least 5 of 7 days/Wk (IRF) Estimated Hrs Per Day: 1.5 hours per day Patient and/or Family Agrees t: Yes Safety Risks/Education Patient Education: Gait Training, Transfer Techniques, Correct Positioning, Safety Issues Teaching Recipient: Patient Teaching Methods: Discussion Response to Teaching: Verbalize Understanding Time/GCodes Time In: 1430 Time Out: 1500 Total Billed Treatment Time: 30 Total Billed Treatment 1, GT (15m) & EX (15m) G Codes Necessary: THERON Neves R[employer] MAIL CARRIER August 06, 2018 15:19
[2018-08-06 18:00] VITALS: BP 125/80
--- NOTE | 2018-08-06 19:05 | NUR ---
bedside report received from CALOS ALLEN, assume care of pt
--- NOTE | 2018-08-06 20:48 | NUR ---
assessments & interventions completed, see assessments & interventions, fsbs 199
[2018-08-06] MEDS: CYCLOBENZAPRINE 10 MG (FLEXERIL) TAB PO SCH (21:07)
[2018-08-06] MEDS: AMITRIPTYLINE 50 MG (ELAVIL) TAB PO SCH (21:09)
[2018-08-06] MEDS: oxyCODONE/APAP 5/325MG (PERCOCET 5) TABLET PO PRN (21:10)
--- NOTE | 2018-08-06 21:10 | NUR ---
c/o pain generalized, level 8/10 on numeric scale percocet 5/325 1 tab po given
--- NOTE | 2018-08-06 21:40 | NUR ---
rates pain level 2/10 on numeric scale
[2018-08-07] MEDS: RT-ALBUTEROL/IPRATROPIUM 3 ML (DUONEB) VIAL INH SCH ×6 (03:02→20:58)
[2018-08-07 05:51] LABS: CALCIUM 9.5 MG/DL (8.5-10.1); CREATININE SERUM 1.25 MG/DL (0.60-1.30); POTASSIUM 4.4 MMOL/L (3.6-5.0)
[2018-08-07 06:00] VITALS: BP 107/67
[2018-08-07] MEDS: predniSONE 20 MG TAB PO SCH (06:37)
[2018-08-07] MEDS: TROSPIUM 20 MG (SANCTURA) TAB PO SCH ×2 (06:37→17:24)
[2018-08-07] MEDS: PANTOPRAZOLE 40 MG (PROTONIX) TAB PO SCH (06:37)
[2018-08-07] MEDS: inSUlin ASPART (NovoLOG) 1 UNIT/0.01 ML (CHARGE PER UNIT) SC SCH ×3 (06:57→17:24)
[2018-08-07] MEDS: RT-ADVAIR HFA 115/21 MCG PER PUFF IH SCH ×2 (07:01→20:58)
--- NOTE | 2018-08-07 07:28 | NUR ---
bedside report given to CB ALLEN
[2018-08-07] MEDS ORDERED: BISACODYL 10 MG SUPP (DULCOLAX) PR PRN (08:15)
[2018-08-07] MEDS ORDERED: SENNA W/DOCUSATE (SENOKOT S) TABLET PO PRN (08:15)
[2018-08-07] MEDS ORDERED: LACTULOSE SYRUP 10GM/15ML (ENULOSE) 30ML UDC PO PRN (08:15)
[2018-08-07] MEDS ORDERED: POLYETHYLENE GLYCOL 17 GM (MIRALAX) PACK PO PRN (08:15)
--- NOTE | 2018-08-07 08:19 | PM&R Progress Note ---
Subjective HPI/CC On Admission Date Seen by Provider: August 07, 2018 Time Seen by Provider: 08:15 Chief complaint: Severe Weakness HPI: This is a 62yoWM clinic Pt of Dr. Nuno who presents to inpatient rehab due to sever myopathy due to critical illness and intubation last week after septic shock, acute kidney injury, and hyperkalemia. He was able to be extubated under Dr. Deal's expertise last Sunday and was well enough to move down to fourth floor to continue IV antibiotics of Meropenem along with supportive care and oxygen. He doesn't use oxygen at home. He is very weak, his prior level of functioning was independent with ADLs and ambulation without assistive devices and currently he is participating in therapy but overall very weak and requiring inpatient rehab. His bowels are moving and urinary catheter will be discontinued upon admission to rehab. Subjective/Events-last exam SLUMS test reviewed and he scored 26 which was normal so that is reassuring Sugar 182 this morning BM 08/03/18 so ordered prn BM regimen today to take Low BP noted so held some meds Participating with therapy Likely DC home late this week Conferred with RN Participating in therapy Review of Systems General: Fatigue Pulmonary: Dyspnea Objective Exam Vital Signs Vital Signs Date Time Temp Pulse Resp B/P (MAP) Pulse Ox O2 Delivery O2 Flow Rate FiO2 08/07/18 10:50 97 Nasal Cannula 2.50 08/07/18 08:23 98 124/76 (92) 08/07/18 06:00 97.3 18 Capillary Refill : General Appearance: No Apparent Distress, WD/WN, Chronically ill HEENT: PERRL/EOMI, Normal ENT Inspection, Pharynx Normal, Moist Mucous Membranes Neck: Full Range of Motion, Normal Inspection, Non Tender, Supple Respiratory: Chest Non Tender, Lungs Clear, Normal Breath Sounds, No Accessory Muscle Use, No Respiratory Distress, Decreased Breath Sounds Cardiovascular: Regular Rate, Rhythm, No Edema, No Gallop, No JVD, No Murmur Gastrointestinal: Normal Bowel Sounds, No Organomegaly, No Pulsatile Mass, Non Tender, Soft Back: Normal Inspection, No CVA Tenderness, No Vertebral Tenderness Extremity: Normal Capillary Refill, Normal Inspection, Normal Range of Motion, Non Tender, No Calf Tenderness, Pedal Edema Neurologic/Psychiatric: Alert, Oriented x3, No Motor/Sensory Deficits ( generalized weakness all extremities), Normal Mood/Affect, Disoriented Skin: Normal Color, Warm/Dry Lymphatic: No Adenopathy Results/Procedures Lab Laboratory Tests 08/07/18 04:55 Patient resulted labs reviewed. FIM Transfers Therapy Code Descriptions/Definitions Functional [place] Measure: 0=Not Assessed/NA 4=Minimal Assistance 1=Total Assistance 5=Supervision or Setup 2=Maximal Assistance 6=Modified [place] 3=Moderate Assistance 7=Complete [place] Therapy Quality Codes: 6 Independent with activity with or without an assistive device 5 Patient requires set up or clean up by helper. Patient completes activity by themselves 4 Supervision or touching assist (CGA). [place] provide cues , steadying assist 3 The helper provides less than half the effort to complete the activity 2 The helper provides more than half the effort to complete the activity 1 Dependent. The helper does all the effort to complete an activity 7 Patient refused to complete or attempt activity 9 The patient did not perform the activity before the current illness or injury 88 Not attempted due to Medical conditions or safety concerns Transfers (B, C, W/C) (FIM): 5 Scootin Rollin Roll Left to Right (QC): 4 Supine to/from Sit: 5 Sit to/from Stand: 5 Sit to Lying (QC): 4 Sit to Stand (QC): 5 Chair/Wof-gl-Gfxny Xfer(QC): 4 Bed to/from Chair: 6 Car Transfer (QC): 5 Gait Training Does the Patient Walk?: Yes Gait (FIM): 5 Distance (FIM): 3=150 ft Distance: 400' Walk 10 feet (QC): 5 Walk 50 ft with 2 Turns(QC): 5 Walk 150 ft (QC): 5 Walking 10ft/uneven surface-QC: 4 Gait Level of Assist: 5 Gait Persons Needed: 1 Gait Assistive Device: FWW Wheelchair Training Does the Pt Use a Wheelchair?: No Wheelchair (FIM): 5 Wheelchair Distance: 3=150 ft Distance: 150' Wheelchair Level of Assist: 5 Wheel 50 ft with 2 turns (QC): 5 Wheel 150 ft (QC): 5 Stair Training Stair Training: Handrails/: 2 handrails Stairs (FIM): 5 #of Steps: 12 1 Step (curb) (QC): 5 4 Steps (QC): 5 12 Steps (QC): 5 Stairs: Pattern: Reciprocal Level of Assist: 5 Mental Status/Objective Comprehension: 5 Expression: 5 Social Interaction: 6 Problem Solvin Memory: 4 ADL-Treatment Groomin (Set up seated at sink.) Oral Hygiene (QC): 5 Bathin (SBA in shower to bathe all parts. Pt. does require cues at times to sit for safety.) Bathing Location: L Arm, R Arm, L Upper Leg, R Upper Leg, L Lower Leg ( including foot), R Lower Leg (including foot), Chest, Abdomen, Buttocks, Perineal Area Shower/Bathe Self (QC): 4 Upper Extremity Dressin Upper Body Dressing (QC): 4 Lower Extremity Dressin Lower Body Dressing (QC): 4 On/Off Footwear (QC): 4 Toiletin (CGA while stnading) Toileting Hygiene (QC): 4 Toilet/Commode Transfer: 4 Toilet Transfer (QC): 4 Shower: 5 Assessment/Plan Assessment and Plan Assess & Plan/Chief Complaint Assessment: Myopathy Vertigo acute on chronic Hypoglycemia Edema Leukocytosis of unknown source Hyperkalemia Plan: IRF protocol Return to home at [place] with family will be planned which is reasonable Monitor sugars but appears improved today so will hold on increasing insulin due to hypoglycemia hx Home meds Hold long-acting narcs Decrease insulin due to hypoglycemia but will increase back soon Memory test reviewed Lasix for edema along with LACHELLE mary carmene prn Monitor potassium level (1) Myopathy (2) Chronic back pain (3) Severe sepsis (4) Essential (primary) hypertension (5) Normocytic anemia (6) Thrombocytopenia (7) Acute renal failure (8) Insulin dependent diabetes mellitus (9) Volume depletion (10) COPD (chronic obstructive pulmonary disease) (11) Acute hyperkalemia (12) Acute kidney injury (13) Acute respiratory failure with hypoxemia (14) Altered mental status (15) Left bundle branch block (LBBB) determined by electrocardiography ANGÉLICA DAVIS DO August 07, 2018 08:19
[2018-08-07 08:23] VITALS: BP 124/76
[2018-08-07] MEDS: VITAMIN D3 1,000 UNITS (CHOLECALCIFEROL) TABLET PO SCH (08:27)
[2018-08-07] MEDS: MECLIZINE 25 MG (ANTIVERT) TAB PO SCH ×4 (08:27→21:11)
[2018-08-07] MEDS: GABAPENTIN 600 MG (NEURONTIN) TAB PO SCH ×3 (08:27→21:11)
[2018-08-07] MEDS: ETODOLAC 300 MG (LODINE) CAP PO SCH ×2 (08:27→21:11)
[2018-08-07] MEDS: FLUTICASONE NASAL SPRAY (FLONASE) 16 GM BTL NS SCH (08:27)
[2018-08-07] MEDS: meTOproloL SUCCINATE 50 MG (TOPROL XL) TAB PO SCH (08:27)
[2018-08-07] MEDS: GLIMEPIRIDE 4 MG (AMARYL) TAB PO SCH ×2 (08:27→21:12)
--- NOTE | 2018-08-07 08:52 | Progress Note-Cardiology ---
Cardiology SOAP Progress Note Subjective: Sitting up on the bedside. Denies any c/o CP, palpitations, syncope or near syncope. Feels breathing has improved. Objective: I&O/Vital Signs 08/07/18 08/07/18 08/07/18 08/07/18 03:04 06:00 07:01 08:23 Temp 97.3 Pulse 93 98 Resp 18 B/P (MAP) 107/67 (80) 124/76 (92) Pulse Ox 94 93 94 O2 Delivery Room Air Nasal Cannula Nasal Cannula O2 Flow Rate 3.00 2.50 08/07/18 10:50 Pulse Ox 97 O2 Delivery Nasal Cannula O2 Flow Rate 2.50 08/07/18 00:00 Intake Total 1100 ml Output Total 950 ml Balance 150 ml Weight (Pounds): 265 Weight (Ounces): 8.0 Weight (Calculated Kilograms): 120.425667 Constitutional: AAO x 3, well-developed, well-nourished Respiratory: wheezing, other (fair bilat air entry, diminished at the bases, prolonged exp phase) Cardiovascular: regular rate-rhythm, S1 and S2, systolic murmur (soft JESUS at card base) Gastrointestional: No tender; soft; No guarding, No rebound; audible bowel sounds Extremities: no lower extremity edema bilateral Neurologic/Psychiatric: no motor/sensory deficits, alert, normal mood/affect, oriented x 3, grossly intact, power is 5/5 both on sides Skin: No rash on exposed areas, No ulcerations on exposed areas Results/Procedures: Labs Laboratory Tests 08/06/18 15:44: Glucometer 319H 08/06/18 21:06: Glucometer 199H 08/07/18 04:55: Sodium Level 139, Potassium Level 4.4, Chloride Level 102, Carbon Dioxide Level 23, Anion Gap 14, Blood Urea Nitrogen 32H, Creatinine 1.25, Estimat Glomerular Filtration Rate 59, BUN/Creatinine Ratio 26, Glucose Level 182H, Calcium Level 9.5, Magnesium Level 2.0 08/07/18 12:09: Glucometer 208H A/P: Assessment: Dizziness and low bp Acute resp failure in late June and early July 2018, probably due to aspiration pneumonia, now resolved Probable COPD Acute renal failure in late June and early July 2018 - resolved Echo of 07/23/18: LVEF 60-65%, mild conc LVH, grade 1 max dysfunction LBBB DM Chronic narcotic use d/t chronic back pain Symptoms of bilat leg claudication Dizziness with position changes Plan: * Focus of CV management currently is on risk factor mod; this was discussed and advised again today * Does have risk factors for CAD and symptoms of leg claudication. Cor and leg circ w/u is recommended after stabilization of current issues (post discharge) * Somewhat low BP with symptoms of dizziness with position changes - reduce antihypertensive regimen - monitor Physician Assessment Physician Assessment Gen malaise and weakness, slowly improving No cp or palp or syncope or new swelling Lungs: fair to good air entry Cor: reg Ext: no c/c/e A&R * As documented in our note above and as noted below * D/c amlodipine * Continue to follow clinically * I discussed with him our treatment plan BRE JETER [facility] August 07, 2018 08:52 RAMON JOYCE MD FACP FAC CCDS August 07, 2018 12:46
--- NOTE | 2018-08-07 10:47 | Occupational Ther Daily Note ---
OT Current Status-Daily Note Subjective Pt sitting EOB, agrees to therapy. Pt had taken O2 off and states he hasn't been using it during therapy. RN states okay to leave off and monitor. O2 sats were checked throughout treatment and were 95% and above. Mental Status/Objective Therapy Code Descriptions/Definitions Functional [place] Measure: 0=Not Assessed/NA 4=Minimal Assistance 1=Total Assistance 5=Supervision or Setup 2=Maximal Assistance 6=Modified [place] 3=Moderate Assistance 7=Complete [place] ADL-Treatment Pt requests shower this morning. Gait to restroom with FWW, no LOB noted. Transfer to toilet with modified independence. Pt able to complete toileting hygiene and clothing management with modified independence. Transfer to walk in shower with SBA. Pt able to wash all areas without LOB. Don pullover shirt with set up. Pt donned Depends and shorts with set up. Pt able to don LACHELLE hose while seated EOB. Don shoes with set up. Pt completed grooming tasks while seated at the sink. Pt brushed teeth and combed hair with modified independence. Therapy Code Descriptions/Definitions Functional [place] Measure: 0=Not Assessed/NA 4=Minimal Assistance 1=Total Assistance 5=Supervision or Setup 2=Maximal Assistance 6=Modified [place] 3=Moderate Assistance 7=Complete [place] Therapy Quality Codes: 6 Independent with activity with or without an assistive device 5 Patient requires set up or clean up by helper. Patient completes activity by themselves 4 Supervision or touching assist (CGA). [place] provide cues , steadying assist 3 The helper provides less than half the effort to complete the activity 2 The helper provides more than half the effort to complete the activity 1 Dependent. The helper does all the effort to complete an activity 7 Patient refused to complete or attempt activity 9 The patient did not perform the activity before the current illness or injury 88 Not attempted due to Medical conditions or safety concerns Grooming (FIM): 6 Oral Hygiene (QC): 6 Bathing (FIM): 6 Shower/Bathe Self (QC): 6 Upper Body (FIM): 5 Upper Body Dressing (QC): 5 Lower Body Dressing (FIM): 5 Lower Body Dressing (QC): 5 On/Off Footwear (QC): 5 Toileting (FIM): 6 Toileting Hygiene (QC): 6 Toilet/Commode Transfer (FIM): 6 Tub Transfer(FIM): 5 Other Treatment Gait to therapy gym with FWW. Arm bike x12 minutes to increase overall strength and activity tolerance needed for ADLs and transfers. Pt performed task with moderate resistance and steady pace. No rest breaks needed. Pt returned to room , sitting EOB with RT present after session. OT Short Term Goals Short Term Goals Time Frame: August 06, 2018 Grooming(FIM): 5 Bathing(FIM): 4 Lower Body Dressing(FIM): 4 Toileting(FIM): 4 Transfers (B,C,W/C) (FIM): 5 Toilet/Commode Transfer(FIM): 4 Shower Transfer(FIM): 4 Additional Short Term Goals: 1-Demonstrate ADL Tasks, 2-Verbalize Understanding , 3-ImproveStrength/Imani 1=Demonstrate adherence to instructed precautions during ADL tasks. 2=Patient will verbalize/demonstrate understanding of assistive devices/ modifications for ADL. 3=Patient will improve strength/tolerance for activity to enable patient to perform ADL's. OT E Commerce Retailer Goals E [employer] Retailer Goals Time Frame: August 20, 2018 Eating (FIM): 6 Eating (QC): 6 Groomin Oral Hygiene (QC): 6 Bathing(FIM): 5 Shower/Bathe Self (QC): 5 Upper Body Dressing(FIM): 6 Upper Body Dressing (QC): 6 Lower Body Dressing(FIM): 6 Lower Body Dressing (QC): 6 On/Off Footwear (QC): 6 Toileting(FIM): 6 Toileting Hygiene (QC): 6 Toilet/Commode Transfer(FIM): 6 Toilet/Commode Transfer (QC): 6 Shower Transfer(FIM): 5 Additional Goals: 1-Demonstrate ADL Tasks, 2-Verbalize Understanding, 3- ImproveStrength/Imani 1=Demonstrate adherence to instructed precautions during ADL tasks. 2=Patient will verbalize/demonstrate understanding of assistive devices/ modifications for ADL. 3=Patient will improve strength/tolerance for activity to enable patient to perform ADL's. OT Education/Plan Discharge Recommendations Plan/Recommendations: Continue POC Treatment Plan/Plan of Care Patient would benefit from OT for education, treatment and training to promote independence in ADL's, mobility, safety and/or upper extremity function for ADL' s. Plan of Care: ADL Retraining, Caregiver Training, Functional Mobility, Group Exercise/Act as Ind, UE Funct Exercise/Act Treatment Duration: August 20, 2018 Frequency: At least 5 of 7 days/Wk (IRF) Estimated Hrs Per Day: 1.5 hours per day Agreement: Yes Rehab Potential: Fair Time/GCodes Start Time: 09:30 Stop Time: 10:45 Total Time Billed (hr/min): 75 Billed Treatment Time 1 visit, ADLx4(55minutes), EX(20minutes) HAMLET MORRIS OT August 07, 2018 10:46
--- NOTE | 2018-08-07 12:01 | Physical Therapy Daily Note ---
PT Daily Note-Current Subjective Pt laying supine in bed upon arrival. Pt agrees to PT. Mental Status Patient Orientation: Person, Place, Time, Situation Transfers Therapy Code Descriptions/Definitions Functional [place] Measure: 0=Not Assessed/NA 4=Minimal Assistance 1=Total Assistance 5=Supervision or Setup 2=Maximal Assistance 6=Modified [place] 3=Moderate Assistance 7=Complete [place] Therapy Quality Codes: 6 Independent with activity with or without an assistive device 5 Patient requires set up or clean up by helper. Patient completes activity by themselves 4 Supervision or touching assist (CGA). [place] provide cues , steadying assist 3 The helper provides less than half the effort to complete the activity 2 The helper provides more than half the effort to complete the activity 1 Dependent. The helper does all the effort to complete an activity 7 Patient refused to complete or attempt activity 9 The patient did not perform the activity before the current illness or injury 88 Not attempted due to Medical conditions or safety concerns Scootin Rollin Supine to/from Sit: 6 Sit to/from Stand: 6 Sit to Stand (QC): 6 Weight Bearing Right Lower Extremity: Right Weight Bearing/Tolerated Left Lower Extremity: Left Weight Bearing/Tolerated Gait Training Does the Patient Walk?: Yes Gait (FIM): 6 Distance (FIM): 3=150 ft Distance: 750' Walk 10 feet (QC): 6 Walk 50 ft with 2 Turns(QC): 6 Walk 150 ft (QC): 6 Gait Level of Assist: 6 Gait Persons Needed: 1 Gait Assistive Device: FWW Wheelchair Training Does the Pt Use a Wheelchair?: No Exercises NuStep Minutes: 15 NuStep Workload: 5 Treatments Pt transfers from bed to standing then ambulates in hallway using FWW. Pt ambulates community distances throughout main floor of hospital before returning to Therapy Gym. Pt uses NuStep for 15m at WL 5. Pt returns to room at end of tx with all needs met. Assessment Current Status: Good Progress Pt has improved with strength, activity tolerance and safety. Pt wants to D/C on Sunday (08/09) to home. PT Short Term Goals Short Term Goals Time Frame: August 06, 2018 Transfers (B,C,W/C) (FIM): 5 Gait (FIM): 5 Gait Distance Comment: 200' Gait Level of Assist: 5 Gait Assistive Device: FWW Wheelchair Distance: 150' PT Family Court Registrar Goals Chcf Goals PT Family Court Registrar Goals Time Frame: August 20, 2018 Transfers (B,C,W/C) (FIM): 6 Sit to Lying (QC): 6 Lying-Sitting on Side/Bed(QC): 6 Sit to Stand (QC): 6 Rollin Roll Left to Right (QC): 6 Chair/Fkh-tp-Zihvw Xfer(QC): 6 Car Transfer (QC): 6 Gait (FIM): 6 Distance: 300' Walk 10 feet (QC): 6 Walk 10ft-Uneven Surface(QC): 6 Walk 50ft with 2 Turns (QC): 6 Walk 150 ft (QC): 6 Gait Level of Assist: 6 Gait Assistive Device: FWW Stairs (FIM): 2 # of Steps: 4 1 Step (curb) (QC): 4 4 Steps (QC): 4 Stairs Level Of Assist: 5 PT Plan Treatment/Plan Treatment Plan: Continue Plan of Care Treatment Plan: Bed Mobility, Education, Functional Activity Imani, Functional Strength, Group Therapy, Gait, Safety, Therapeutic Exercise, Transfers Treatment Duration: August 20, 2018 Frequency: At least 5 of 7 days/Wk (IRF) Estimated Hrs Per Day: 1.5 hours per day Patient and/or Family Agrees t: Yes Safety Risks/Education Patient Education: Gait Training, Transfer Techniques, Correct Positioning, Safety Issues Teaching Recipient: Patient Teaching Methods: Discussion Response to Teaching: Verbalize Understanding Time/GCodes Time In: 1100 Time Out: 1145 Total Billed Treatment Time: 45 Total Billed Treatment 1, GT x2 (30m) & Ex (15m) G Codes Necessary: THERON Neves PTA August 07, 2018 12:01
--- NOTE | 2018-08-07 12:53 | Speech Therapy Daily Note ---
Speech Daily Progress Note Subjective Date Seen by Provider: August 07, 2018 Time Seen by Provider: 00:30 The patient was seen in his room, he was alert and participated well with therapy session. Objective Patient completed memory tasks with 90% given few cues. Assessment Assessment Current Status: Good Progress Treatment Plan Continue Plan of Care Communication Comprehension: 5 Expression: 5 Social Cognition Social Interaction: 6 Problem Solvin Memory: 4 Speech Short Term Goals Short Term Goals Short Term Goals 1) The patient will tolerate the least restrictive diet level without s/s of aspiration at 90% or greater. 2) The patient will utilize compensatory strategies as trained with 90% or greater with minimal cues. 3) The patient will be able to recall new information related to himself with 90 % or greater given minimal cues. 4) The patient will be able to follow directions for safety with 90% or greater given minimal cues. Speech Neurosurgery Research Director Goals Halfway Goals The patient will maintain adequate nutrition/hydration via safe effective swallow function. The patient will improve his safety and independence in order to return home. Speech-Plan Patient/Family Goals Patient/Family Goals: The patient plans to return home with his significant other post rehab. Treatment Plan Speech Therapy Treatment Plan: Continue Plan of Care The patient is utilizing his drink thickener as directed. The patient is in hopes to return home soon. Treatment Duration: August 09, 2018 Frequency: 5 times per week Estimated Hrs Per Day: .5 hour per day Rehab Potential: Fair Barriers to Learning: Resolved memory issues Pt/Family Agrees to Plan: Yes Safety Risks/Education Teaching Recipient: Patient Teaching Methods: Discussion Response to Teaching: Verbalize Understanding Education Topics Provided: Safety in his room and upon his return home. Time Speech Therapy Time In: 08:30 Speech Therapy Time Out: 09:00 Total Billed Time: 30 Billed Treatment Time 1, ELAINE MORELAND [address] August 07, 2018 12:53
--- NOTE | 2018-08-07 13:24 | Pulmonary Progress Note ---
Subjective Time Seen by a Provider: 13:23 Subjective/Events-last exam Pt sleeping and in chair sleeping. No complications noted. Sepsis Event Evaluation Height, Weight, BMI Height: 6'1.00" Weight: 265lbs. 8.0oz. 120.472839br; 35.0 BMI Method:Stated Exam Exam Vital Signs Date Time Temp Pulse Resp B/P (MAP) Pulse Ox O2 Delivery O2 Flow Rate FiO2 08/07/18 10:50 97 Nasal Cannula 2.50 08/07/18 08:23 98 124/76 (92) 08/07/18 07:01 94 Nasal Cannula 2.50 08/07/18 06:00 97.3 93 18 107/67 (80) 93 Nasal Cannula 3.00 08/07/18 03:04 94 Room Air 08/06/18 22:15 94 Nasal Cannula 2.50 08/06/18 20:48 Nasal Cannula 2.00 08/06/18 19:59 94 Room Air 08/06/18 18:00 99.6 94 18 125/80 (95) 94 Room Air 08/06/18 14:23 91 Room Air I & O 08/07/18 07:00 Intake Total 1770 ml Output Total 1950 ml Balance -180 ml Height & Weight Height: 6'1.00" Weight: 265lbs. 8.0oz. 120.741476sm; 35.0 BMI Method:Stated General Appearance: No Apparent Distress, WD/WN, Chronically ill HEENT: PERRL/EOMI, Normal ENT Inspection, Pharynx Normal, Moist Mucous Membranes Neck: Full Range of Motion, Normal Inspection, Non Tender, Supple Respiratory: Chest Non Tender, Lungs Clear, Normal Breath Sounds, No Accessory Muscle Use, No Respiratory Distress, Decreased Breath Sounds Cardiovascular: Regular Rate, Rhythm, No Edema, No Gallop, No JVD, No Murmur Extremity: Normal Capillary Refill, Normal Inspection, Normal Range of Motion, Non Tender, No Calf Tenderness, Pedal Edema Neurologic/Psychiatric: Alert, Oriented x3, No Motor/Sensory Deficits ( generalized weakness all extremities), Normal Mood/Affect, Disoriented Skin: Normal Color, Warm/Dry Lymphatic: No Adenopathy Results Lab Laboratory Tests 08/07/18 04:55 Assessment/Plan Assessment/Plan Probable COPD -Will need out pt testing -CO2 45 on admission S/p Acute respiratory failure requiring ventilator-- much improved -S/p bronchoscopy -Influ is neg -MRSA swab is negative -ABG - reviewed - SVNs Duoneb Sepsis - improved -MRSA swab is negative -Busby cultures pending -CT of abd/pelvis is neg Acute MS changes -- possibly from home narcotics/benzos LBBB - per EKG -cardiology -Echocardiogram - LVEF 60-65%, mild conc LVH, grade 1 diastolic dysfunction Acute on chronic renal failure- improving -monitor close Metabolic lactic acidosis - secondary to sepsis r/o abdominal sepsis DM -SSI - MARCI Lopez DO August 07, 2018 13:24
[2018-08-07] MEDS: ENOXAPARIN 40 MG/0.4 ML (LOVENOX) SYR SC SCH (13:33)
--- NOTE | 2018-08-07 15:04 | Physical Therapy Daily Note ---
PT Daily Note-Current Subjective Pt. agrees to rx. States he would like someone to help him with a DPOA b/c his daughter is currently his DPOA and he doesnt know how that happened. Pt. states he also would like a dietary consult. Pt. is excited to go home on . Misses his dogs Pain Location: No Pain Reported Mental Status Patient Orientation: Person, Place, Time, Situation Transfers Therapy Code Descriptions/Definitions Functional [place] Measure: 0=Not Assessed/NA 4=Minimal Assistance 1=Total Assistance 5=Supervision or Setup 2=Maximal Assistance 6=Modified [place] 3=Moderate Assistance 7=Complete [place] Therapy Quality Codes: 6 Independent with activity with or without an assistive device 5 Patient requires set up or clean up by helper. Patient completes activity by themselves 4 Supervision or touching assist (CGA). [place] provide cues , steadying assist 3 The helper provides less than half the effort to complete the activity 2 The helper provides more than half the effort to complete the activity 1 Dependent. The helper does all the effort to complete an activity 7 Patient refused to complete or attempt activity 9 The patient did not perform the activity before the current illness or injury 88 Not attempted due to Medical conditions or safety concerns all TRFs mod I Weight Bearing Right Lower Extremity: Right Weight Bearing/Tolerated Left Lower Extremity: Left Weight Bearing/Tolerated Gait Training Gait Assistive Device: FWW mod I 300ft, 200ft Exercises Supine Ex: Bridging, Ankle pumps, Quad Set, Rolling, Glut sets, Heel Slides, Short Arc Quads, Scooting, Straight leg raise, Hip abd/add Supine Reps: 15 NuStep Minutes: 15 NuStep Workload: 2 Treatments pt. demonstrated the exercises he recalls which was a great deal of the exercises he did in supine Assessment Current Status: Good Progress PT Short Term Goals Short Term Goals Time Frame: August 06, 2018 Transfers (B,C,W/C) (FIM): 5 Gait (FIM): 5 Gait Distance Comment: 200' Gait Level of Assist: 5 Gait Assistive Device: FWW Wheelchair Distance: 150' PT Bundle Collector Goals Bundle Collector Goals PT Bundle Collector Goals Time Frame: August 20, 2018 Transfers (B,C,W/C) (FIM): 6 Sit to Lying (QC): 6 Lying-Sitting on Side/Bed(QC): 6 Sit to Stand (QC): 6 Rollin Roll Left to Right (QC): 6 Chair/Alv-pj-Mjcap Xfer(QC): 6 Car Transfer (QC): 6 Gait (FIM): 6 Distance: 300' Walk 10 feet (QC): 6 Walk 10ft-Uneven Surface(QC): 6 Walk 50ft with 2 Turns (QC): 6 Walk 150 ft (QC): 6 Gait Level of Assist: 6 Gait Assistive Device: FWW Stairs (FIM): 2 # of Steps: 4 1 Step (curb) (QC): 4 4 Steps (QC): 4 Stairs Level Of Assist: 5 PT Plan Treatment/Plan Treatment Plan: Continue Plan of Care Treatment Plan: Bed Mobility, Education, Functional Activity Imani, Functional Strength, Group Therapy, Gait, Safety, Therapeutic Exercise, Transfers Treatment Duration: August 20, 2018 Frequency: At least 5 of 7 days/Wk (IRF) Estimated Hrs Per Day: 1.5 hours per day Patient and/or Family Agrees t: Yes Safety Risks/Education Patient Education: Gait Training, Transfer Techniques, Correct Positioning, Safety Issues Teaching Recipient: Patient Teaching Methods: Demonstration, Discussion Response to Teaching: Verbalize Understanding, Return Demonstration Time/GCodes Time In: 1415 Time Out: 1445 Total Billed Treatment Time: 30 Total Billed Treatment 1,EX20,GT10 G Codes Necessary: KIERSTEN Gonzalez AUTOTRANSFUSIONIST August 07, 2018 15:03
--- NOTE | 2018-08-07 15:42 | NUR ---
FURNACE CHECKER met with patient and step-mother to review Team Conference Summary. As patient is performing all therapy activities at a MOD I level, Team has recommended patient discharge home with home health services on Sunday, 08/09. Patient and family are agreeable to this. Patient inquired about completing an advance directive, FURNACE CHECKER provided documents and facilitated notarization by [facility]. A copy of POA was placed in patient's chart, the original and one copy was provided to patient. Patient is agreeable for home health services with recommendation of RN for open coccyx wound, PT and ST. FURNACE CHECKER has provided a HHC provider list and review IMM. Patient expresses no concerns with discharge plans. FURNACE CHECKER will follow up on HHC choice.
[2018-08-07 18:40] VITALS: BP 113/67
--- NOTE | 2018-08-07 19:23 | NUR ---
bedside report received from CB ALLEN, assume care of pt
--- NOTE | 2018-08-07 20:55 | NUR ---
assessments & interventions completed, see assessments & interventions, up to bathroom with 1 person standby assist & walker
--- NOTE | 2018-08-07 21:05 | NUR ---
fsbs 59 given oj
[2018-08-07] MEDS: CYCLOBENZAPRINE 10 MG (FLEXERIL) TAB PO SCH (21:11)
[2018-08-07] MEDS: AMITRIPTYLINE 50 MG (ELAVIL) TAB PO SCH (21:12)
[2018-08-07] MEDS: oxyCODONE/APAP 5/325MG (PERCOCET 5) TABLET PO PRN (21:13)
--- NOTE | 2018-08-07 21:13 | NUR ---
c/o discomfort level 8/10 on numeric scale, Percocet 5/325 1 tab po given
--- NOTE | 2018-08-07 21:22 | NUR ---
fsbs 86 given peanut butter and chivo crackers
--- NOTE | 2018-08-07 21:40 | NUR ---
resting quietly in bed, pain level 0/10 on flacc scale
[2018-08-08] MEDS: RT-ALBUTEROL/IPRATROPIUM 3 ML (DUONEB) VIAL INH SCH ×6 (02:07→22:42)
[2018-08-08 05:52] VITALS: BP 110/63
[2018-08-08] MEDS: RT-ADVAIR HFA 115/21 MCG PER PUFF IH SCH ×2 (06:29→19:22)
[2018-08-08] MEDS: TROSPIUM 20 MG (SANCTURA) TAB PO SCH ×2 (06:54→16:36)
[2018-08-08] MEDS: predniSONE 20 MG TAB PO SCH (06:54)
[2018-08-08] MEDS: PANTOPRAZOLE 40 MG (PROTONIX) TAB PO SCH (06:54)
[2018-08-08] MEDS: inSUlin ASPART (NovoLOG) 1 UNIT/0.01 ML (CHARGE PER UNIT) SC SCH ×3 (06:57→16:36)
--- NOTE | 2018-08-08 07:10 | NUR ---
bedside report given to CAMDEN ALLEN
--- NOTE | 2018-08-08 08:00 | NUR ---
DR. DAVIS INFORMED OF FLUCTUATING BLOOD SUGARS. DIABETIC EDUCATION ORDERED.
[2018-08-08] MEDS: meTOproloL SUCCINATE 50 MG (TOPROL XL) TAB PO SCH (08:25)
[2018-08-08] MEDS: MECLIZINE 25 MG (ANTIVERT) TAB PO SCH ×4 (08:25→20:19)
[2018-08-08] MEDS: GLIMEPIRIDE 4 MG (AMARYL) TAB PO SCH ×2 (08:25→20:19)
[2018-08-08] MEDS: GABAPENTIN 600 MG (NEURONTIN) TAB PO SCH ×3 (08:25→20:18)
[2018-08-08] MEDS: ETODOLAC 300 MG (LODINE) CAP PO SCH ×2 (08:25→20:18)
[2018-08-08] MEDS: VITAMIN D3 1,000 UNITS (CHOLECALCIFEROL) TABLET PO SCH (08:25)
--- NOTE | 2018-08-08 08:26 | PM&R Progress Note ---
Subjective HPI/CC On Admission Date Seen by Provider: August 08, 2018 Time Seen by Provider: 08:30 Chief complaint: Severe Weakness HPI: This is a 62yoWM clinic Pt of Dr. Nuno who presents to inpatient rehab due to sever myopathy due to critical illness and intubation last week after septic shock, acute kidney injury, and hyperkalemia. He was able to be extubated under Dr. Deal's expertise last Sunday and was well enough to move down to fourth floor to continue IV antibiotics of Meropenem along with supportive care and oxygen. He doesn't use oxygen at home. He is very weak, his prior level of functioning was independent with ADLs and ambulation without assistive devices and currently he is participating in therapy but overall very weak and requiring inpatient rehab. His bowels are moving and urinary catheter will be discontinued upon admission to rehab. Subjective/Events-last exam DC planned for tomorrow BM good now after meds Wants DM education so ordered that Participating with therapy PCP DR Nuno next week appt requested Conferred with RN Participating in therapy Check labs in am Review of Systems General: Fatigue Objective Exam Vital Signs Vital Signs Date Time Temp Pulse Resp B/P (MAP) Pulse Ox O2 Delivery O2 Flow Rate FiO2 08/08/18 06:24 98 Nasal Cannula 1.00 08/08/18 05:52 98.4 80 18 110/63 (79) Capillary Refill : General Appearance: No Apparent Distress, WD/WN, Chronically ill HEENT: PERRL/EOMI, Normal ENT Inspection, Pharynx Normal, Moist Mucous Membranes Neck: Full Range of Motion, Normal Inspection, Non Tender, Supple Respiratory: Chest Non Tender, Lungs Clear, Normal Breath Sounds, No Accessory Muscle Use, No Respiratory Distress, Decreased Breath Sounds Cardiovascular: Regular Rate, Rhythm, No Edema, No Gallop, No JVD, No Murmur Gastrointestinal: Normal Bowel Sounds, No Organomegaly, No Pulsatile Mass, Non Tender, Soft Back: Normal Inspection, No CVA Tenderness, No Vertebral Tenderness Extremity: Normal Capillary Refill, Normal Inspection, Normal Range of Motion, Non Tender, No Calf Tenderness, Pedal Edema Neurologic/Psychiatric: Alert, Oriented x3, No Motor/Sensory Deficits ( generalized weakness all extremities), Normal Mood/Affect, Disoriented Skin: Normal Color, Warm/Dry Lymphatic: No Adenopathy Results/Procedures Lab Patient resulted labs reviewed. FIM Transfers Therapy Code Descriptions/Definitions Functional [place] Measure: 0=Not Assessed/NA 4=Minimal Assistance 1=Total Assistance 5=Supervision or Setup 2=Maximal Assistance 6=Modified [place] 3=Moderate Assistance 7=Complete [place] Therapy Quality Codes: 6 Independent with activity with or without an assistive device 5 Patient requires set up or clean up by helper. Patient completes activity by themselves 4 Supervision or touching assist (CGA). [place] provide cues , steadying assist 3 The helper provides less than half the effort to complete the activity 2 The helper provides more than half the effort to complete the activity 1 Dependent. The helper does all the effort to complete an activity 7 Patient refused to complete or attempt activity 9 The patient did not perform the activity before the current illness or injury 88 Not attempted due to Medical conditions or safety concerns Transfers (B, C, W/C) (FIM): 5 Scootin Rollin Roll Left to Right (QC): 4 Supine to/from Sit: 6 Sit to/from Stand: 6 Sit to Lying (QC): 4 Sit to Stand (QC): 6 Chair/Vmm-tl-Yuvvq Xfer(QC): 4 Bed to/from Chair: 6 Car Transfer (QC): 5 Gait Training Does the Patient Walk?: Yes Gait (FIM): 6 Distance (FIM): 3=150 ft Distance: 750' Walk 10 feet (QC): 6 Walk 50 ft with 2 Turns(QC): 6 Walk 150 ft (QC): 6 Walking 10ft/uneven surface-QC: 4 Gait Level of Assist: 6 Gait Persons Needed: 1 Gait Assistive Device: FWW Wheelchair Training Does the Pt Use a Wheelchair?: No Wheelchair (FIM): 5 Wheelchair Distance: 3=150 ft Distance: 150' Wheelchair Level of Assist: 5 Wheel 50 ft with 2 turns (QC): 5 Wheel 150 ft (QC): 5 Stair Training Stair Training: Handrails/: 2 handrails Stairs (FIM): 5 #of Steps: 12 1 Step (curb) (QC): 5 4 Steps (QC): 5 12 Steps (QC): 5 Stairs: Pattern: Reciprocal Level of Assist: 5 Mental Status/Objective Comprehension: 5 Expression: 5 Social Interaction: 6 Problem Solvin Memory: 4 ADL-Treatment Groomin Oral Hygiene (QC): 6 Bathin Bathing Location: L Arm, R Arm, L Upper Leg, R Upper Leg, L Lower Leg ( including foot), R Lower Leg (including foot), Chest, Abdomen, Buttocks, Perineal Area Shower/Bathe Self (QC): 6 Upper Extremity Dressin Upper Body Dressing (QC): 5 Lower Extremity Dressin Lower Body Dressing (QC): 5 On/Off Footwear (QC): 5 Toiletin Toileting Hygiene (QC): 6 Toilet/Commode Transfer: 6 Toilet Transfer (QC): 4 Tub: 5 Shower: 5 Assessment/Plan Assessment and Plan Assess & Plan/Chief Complaint Assessment: Myopathy Vertigo acute on chronic Hypoglycemia Edema Leukocytosis of unknown source Hyperkalemia Plan: IRF protocol Return to home at NH with family will be planned which is reasonable Monitor sugars but appears improved today so will hold on increasing insulin due to hypoglycemia hx Home meds Hold long-acting narcs Decrease insulin due to hypoglycemia but will increase back soon Memory test reviewed Lasix for edema along with LACHELLE damon prn Monitor potassium level DC home tomorrow Check labs in am (1) Myopathy (2) Chronic back pain (3) Severe sepsis (4) Essential (primary) hypertension (5) Normocytic anemia (6) Thrombocytopenia (7) Acute renal failure (8) Insulin dependent diabetes mellitus (9) Volume depletion (10) COPD (chronic obstructive pulmonary disease) (11) Acute hyperkalemia (12) Acute kidney injury (13) Acute respiratory failure with hypoxemia (14) Altered mental status (15) Left bundle branch block (LBBB) determined by electrocardiography ANGÉLICA DAVIS DO August 08, 2018 08:26
[2018-08-08] MEDS: FLUTICASONE NASAL SPRAY (FLONASE) 16 GM BTL NS SCH (08:28)
--- NOTE | 2018-08-08 09:45 | NUR ---
PT ON 1LPM NC SPO2 93%, PLACED ON ROOM AIR FOR 30 MINUTES SPO2 94%. PT AMBULATED WITH WALKER ON ROOM AIR WITH SBA FROM PHYSICAL THERAPY AND SPO2 DID NOT DROP BELOW 92%. PT DOES NOT QUALIFY FOR HOME OXYGEN AT THIS TIME.
--- NOTE | 2018-08-08 10:04 | Progress Note-Cardiology ---
Cardiology SOAP Progress Note Subjective: Sitting up on the side of the bed. No new c/o. Dizziness is at usual baseline. Objective: I&O/Vital Signs 08/08/18 08/08/18 08/08/18 08/08/18 02:07 05:52 06:24 09:45 Temp 98.4 Pulse 80 Resp 18 B/P (MAP) 110/63 (79) Pulse Ox 97 95 98 93 O2 Delivery Nasal Cannula Nasal Cannula Nasal Cannula O2 Flow Rate 2.00 2.00 1.00 1.00 08/08/18 00:00 Intake Total 1500 ml Balance 1500 ml Weight (Pounds): 257 Weight (Ounces): 3.0 Weight (Calculated Kilograms): 116.531102 Constitutional: AAO x 3, well-developed, well-nourished Respiratory: wheezing, other (fair bilat air entry, diminished at the bases, prolonged exp phase) Cardiovascular: regular rate-rhythm, S1 and S2, systolic murmur (soft JESUS at card base) Gastrointestional: No tender; soft; No guarding, No rebound; audible bowel sounds Extremities: no lower extremity edema bilateral Neurologic/Psychiatric: no motor/sensory deficits, alert, normal mood/affect, oriented x 3, grossly intact, power is 5/5 both on sides Skin: No rash on exposed areas, No ulcerations on exposed areas Results/Procedures: Labs Laboratory Tests 08/07/18 12:09: Glucometer 208H 08/07/18 16:18: Glucometer 140H 08/07/18 21:04: Glucometer 59*L 08/07/18 21:26: Glucometer 86 08/07/18 23:27: Glucometer 112H 08/08/18 05:25: Glucometer 135H A/P: Assessment: Dizziness and low bp - improved after cessation of Norvasc Acute resp failure in late June and early July 2018, probably due to aspiration pneumonia, now resolved Probable COPD Acute renal failure in late June and early July 2018 - resolved Echo of 07/23/18: LVEF 60-65%, mild conc LVH, grade 1 max dysfunction LBBB DM Chronic narcotic use d/t chronic back pain Symptoms of bilat leg claudication Dizziness with position changes - chronic, back to baseline Plan: * Focus of CV management currently is on risk factor mod; this was discussed and advised again today * Does have risk factors for CAD and symptoms of leg claudication. Cor and leg circ w/u is recommended after stabilization of current issues (post discharge) * BP has improved with reduction of antihypertensives * Plan is for D/C home tomorrow * Advise out pt f/u with us in 1-2 weeks Physician Assessment Physician Assessment Dizziness improved (now back to usual baseline) No cp or palp. Shortness of breath with exertion Lungs: fair to good air entry Cor: reg Ext: no c/c/e A&R * As documented in our note above that I updated (italics) and as noted below * Risk factor mod discussed and advised * Outpt f/u advised BRE JETER APPLICATION SPECIALIST August 08, 2018 10:04 RAMON JOYCE MD FACP FAC CCDS August 08, 2018 11:56
[2018-08-08] MEDS ORDERED: METO-370 PO (10:08)
--- NOTE | 2018-08-08 10:53 | Speech Therapy Daily Note ---
Speech Daily Progress Note Subjective Date Seen by Provider: August 08, 2018 Time Seen by Provider: 00:30 The patient was alert and had just finished eating his breakfast when I entered his room. Objective The patient completed memory tasks related to himself and daily tasks at 90% without cues. Assessment Assessment Current Status: Good Progress Treatment Plan Discontinue ST, Goals Met Communication Comprehension: 7 Expression: 7 Social Cognition Social Interaction: 7 Problem Solvin Memory: 7 Speech Short Term Goals Short Term Goals Short Term Goals 1) The patient will tolerate the least restrictive diet level without s/s of aspiration at 90% or greater. Met 2) The patient will utilize compensatory strategies as trained with 90% or greater with minimal cues. Met 3) The patient will be able to recall new information related to himself with 90 % or greater given minimal cues. Met 4) The patient will be able to follow directions for safety with 90% or greater given minimal cues. Met Speech Provisioning Analyst Goals Mcfp Goals The patient will maintain adequate nutrition/hydration via safe effective swallow function. The patient will improve his safety and independence in order to return home. Speech-Plan Patient/Family Goals Patient/Family Goals: The patient is scheduled to return home tomorrow, 08/09/18 with his significant other. Treatment Plan Speech Therapy Treatment Plan: Discontinue ST, Goals Met The patient has made good progress as a result of skilled ST services. Treatment Duration: August 09, 2018 Frequency: 5 times per week Estimated Hrs Per Day: .5 hour per day Rehab Potential: Fair Barriers to Learning: None identified at this time. Pt/Family Agrees to Plan: Yes Safety Risks/Education Teaching Recipient: Patient Teaching Methods: Discussion Response to Teaching: Verbalize Understanding Education Topics Provided: Safety upon his return home and continued safety of oral intake. Time Speech Therapy Time In: 08:00 Speech Therapy Time Out: 08:30 Total Billed Time: 30 Billed Treatment Time 1, MANSOOR Corbin August 08, 2018 10:53
[2018-08-08] MEDS: ENOXAPARIN 40 MG/0.4 ML (LOVENOX) SYR SC SCH (12:19)
--- NOTE | 2018-08-08 12:24 | Physical Therapy Daily Note ---
PT Daily Note-Current Subjective Pt sitting at EOB visiting with mother upon arrival. Pt agrees to PT. Pain Location: No Pain Reported Mental Status Patient Orientation: Person, Place, Time, Situation Transfers Therapy Code Descriptions/Definitions Functional [place] Measure: 0=Not Assessed/NA 4=Minimal Assistance 1=Total Assistance 5=Supervision or Setup 2=Maximal Assistance 6=Modified [place] 3=Moderate Assistance 7=Complete [place] Therapy Quality Codes: 6 Independent with activity with or without an assistive device 5 Patient requires set up or clean up by helper. Patient completes activity by themselves 4 Supervision or touching assist (CGA). [place] provide cues , steadying assist 3 The helper provides less than half the effort to complete the activity 2 The helper provides more than half the effort to complete the activity 1 Dependent. The helper does all the effort to complete an activity 7 Patient refused to complete or attempt activity 9 The patient did not perform the activity before the current illness or injury 88 Not attempted due to Medical conditions or safety concerns Transfers (B, C, W/C) (FIM): 6 Scootin Rollin Roll Left to Right (QC): 7 Supine to/from Sit: 7 Sit to/from Stand: 6 Sit to Lying (QC): 7 Sit to Stand (QC): 6 Chair/Blj-oq-Hxpjg Xfer(QC): 6 Bed to/from Chair: 6 Car Transfer (QC): 6 Weight Bearing Right Lower Extremity: Right Weight Bearing/Tolerated Left Lower Extremity: Left Weight Bearing/Tolerated Gait Training Does the Patient Walk?: Yes Gait (FIM): 6 Distance (FIM): 3=150 ft Distance: 800+' Walk 10 feet (QC): 6 Walk 50 ft with 2 Turns(QC): 6 Walk 150 ft (QC): 6 Walking 10ft/uneven surface-QC: 6 Gait Level of Assist: 6 Gait Persons Needed: 1 Gait Assistive Device: FWW Wheelchair Training Does the Pt Use a Wheelchair?: No Stair Training Stair Training: Handrails/: 2 handrails Stairs (FIM): 6 #of Steps: 12 1 Step (curb) (QC): 6 4 Steps (QC): 6 12 Steps (QC): 6 Stairs: Pattern: Reciprocal Level of Assist: 6 Balance Picking up an Object (QC): 5 Exercises Seated Therapy Exercises: Ankle pumps, Long arc quads, Hip flexion, Kicking activity, Hip abd/add Seated Reps: 15 NuStep Minutes: 15 NuStep Workload: 5 Treatments Pt completes FIM scoring items including bed mobility, transfers including car transfer, ambulation including across varying surface, steps and picking up object from floor. Pt also completed Seated EX and used NuStep for 15m at WL 5. Pt returns to room at end of tx with all needs met. Assessment Current Status: Good Progress Pt has made great progress in the last week with improvements in strength, activity tolerance and balance. Pt is excited to D/C tomorrow. PT Short Term Goals Short Term Goals Time Frame: August 06, 2018 Transfers (B,C,W/C) (FIM): 5 Gait (FIM): 5 Gait Distance Comment: 200' Gait Level of Assist: 5 Gait Assistive Device: FWW Wheelchair Distance: 150' PT Informatics Developer Goals Prison Goals PT Prison Goals Time Frame: August 20, 2018 Transfers (B,C,W/C) (FIM): 6 Sit to Lying (QC): 6 Lying-Sitting on Side/Bed(QC): 6 Sit to Stand (QC): 6 Rollin Roll Left to Right (QC): 6 Chair/Caf-df-Zkrek Xfer(QC): 6 Car Transfer (QC): 6 Gait (FIM): 6 Distance: 300' Walk 10 feet (QC): 6 Walk 10ft-Uneven Surface(QC): 6 Walk 50ft with 2 Turns (QC): 6 Walk 150 ft (QC): 6 Gait Level of Assist: 6 Gait Assistive Device: FWW Stairs (FIM): 2 # of Steps: 4 1 Step (curb) (QC): 4 4 Steps (QC): 4 Stairs Level Of Assist: 5 PT Plan Treatment/Plan Treatment Plan: Continue Plan of Care Treatment Plan: Bed Mobility, Education, Functional Activity Imani, Functional Strength, Group Therapy, Gait, Safety, Therapeutic Exercise, Transfers Treatment Duration: August 20, 2018 Frequency: At least 5 of 7 days/Wk (IRF) Estimated Hrs Per Day: 1.5 hours per day Patient and/or Family Agrees t: Yes Safety Risks/Education Patient Education: Gait Training, Transfer Techniques, Steps, Correct Positioning, Safety Issues Teaching Recipient: Patient Teaching Methods: Discussion Response to Teaching: Verbalize Understanding Time/GCodes Time In: 1045 Time Out: 1200 Total Billed Treatment Time: 75 Total Billed Treatment 1, GT x2 (30m), FA x2 (25m) & EX (20m) G Codes Necessary: THERON Neves BLUEPRINT ENGINEER August 08, 2018 12:24
[2018-08-08] MEDS: oxyCODONE/APAP 5/325MG (PERCOCET 5) TABLET PO PRN (12:32)
--- NOTE | 2018-08-08 12:35 | Occupational Ther Daily Note ---
OT Current Status-Daily Note Subjective Pt seen in room, up at EOB, agreeable to OT. No pain mentioned. Appearance Alert, cooperative, looking forward to going home tomorrow. Mental Status/Objective Patient Orientation: Person, Place, Time, Situation Therapy Code Descriptions/Definitions Functional [place] Measure: 0=Not Assessed/NA 4=Minimal Assistance 1=Total Assistance 5=Supervision or Setup 2=Maximal Assistance 6=Modified [place] 3=Moderate Assistance 7=Complete [place] ADL-Treatment O2 sats checked on room air at beginning of tx and periodically throughout, with sats not dropping lower than 92%. Pt completed ADLs on room air. Walked to bathroom without help, FWW and stopped to retrieve clothing. Toileted with mod I , taller toilet, grab bar, FWW. Shower transfers mod indep in and out of shower and on/off shower bench. Washed and dried all parts with mod I, turned water on and off, retrieved towels from bar, standing to dry, with no LOB observed. Grab bars, hand held shower. Walked to sink and stood to brush hair and teeth, no FWW , no LOB., indep. Pt educ to sit to dress lower body for safety reasons. Dressed upper and lower body, including TEDs and shoes, with mod I. Pt reported no difficulty opening packages at mealtime, cutting up food, feeding himself. Therapy Code Descriptions/Definitions Functional [place] Measure: 0=Not Assessed/NA 4=Minimal Assistance 1=Total Assistance 5=Supervision or Setup 2=Maximal Assistance 6=Modified [place] 3=Moderate Assistance 7=Complete [place] Therapy Quality Codes: 6 Independent with activity with or without an assistive device 5 Patient requires set up or clean up by helper. Patient completes activity by themselves 4 Supervision or touching assist (CGA). [place] provide cues , steadying assist 3 The helper provides less than half the effort to complete the activity 2 The helper provides more than half the effort to complete the activity 1 Dependent. The helper does all the effort to complete an activity 7 Patient refused to complete or attempt activity 9 The patient did not perform the activity before the current illness or injury 88 Not attempted due to Medical conditions or safety concerns Eating (FIM): 7 (Opens packages, cuts up food, feeds himslef, gets a drink. No dentures) Eating (QC): 6 Grooming (FIM): 7 (Stood at sink to brush teeth, comb hair. No FWW in front of him. Washed face and hands in shower) Oral Hygiene (QC): 6 Bathing (FIM): 6 (Washed and dried all parts, using shower bench, grab bars, hand held shower. Retrieved towel, turned water on and off himself) Shower/Bathe Self (QC): 6 Upper Body (FIM): 6 (Retrieve clean clothes using FWW. Doffed and donned t shirt, no assistance) Upper Body Dressing (QC): 6 Lower Body Dressing (FIM): 6 (Doffed and donned clothing, FWW for balance. Including TEDs and shoes) Lower Body Dressing (QC): 6 On/Off Footwear (QC): 6 Toileting (FIM): 6 (On/off tall toilet, using grab bar, FWW) Toileting Hygiene (QC): 6 Toilet/Commode Transfer (FIM): 6 Toilet Transfer (QC): 6 Shower Transfer(FIM): 6 (In and out of shower, on and off shower bench) Other Treatment Pt walked to appeals writer, using FWW. O2 sats remained about 95%. Pt completed 15 minutes bilat UE exercise at arm bike (increased time), set at 25W resistance, to strengthen arms for ADLs and aid in cardiovascular health. O2 sats checked several times and remained at 95% or greater. Clarified equipment needs for discharge. Pt returned to room after exercise, O2 sats at 95%. Pt left EOB, all needs met. Education OT Patient Education: Exercise program, Modified ADL techniques, Progress toward Goal/Update tx plan, Purpose of tx/functional activities, Safety issues, Transfer techniques Teaching Recipient: Patient Teaching Methods: Demonstration, Discussion Response to Teaching: Verbalize Understanding, Return Demonstration, Reinforcement Needed OT Short Term Goals Short Term Goals Time Frame: August 06, 2018 Grooming(FIM): 5 Bathing(FIM): 4 Lower Body Dressing(FIM): 4 Toileting(FIM): 4 Transfers (B,C,W/C) (FIM): 5 Toilet/Commode Transfer(FIM): 4 Shower Transfer(FIM): 4 Additional Short Term Goals: 1-Demonstrate ADL Tasks, 2-Verbalize Understanding , 3-ImproveStrength/Imani 1=Demonstrate adherence to instructed precautions during ADL tasks. 2=Patient will verbalize/demonstrate understanding of assistive devices/ modifications for ADL. 3=Patient will improve strength/tolerance for activity to enable patient to perform ADL's. OT Primary Special Educator Goals Shelter Goals Time Frame: August 20, 2018 Eating (FIM): 6 Eating (QC): 6 Groomin Oral Hygiene (QC): 6 Bathing(FIM): 5 Shower/Bathe Self (QC): 5 Upper Body Dressing(FIM): 6 Upper Body Dressing (QC): 6 Lower Body Dressing(FIM): 6 Lower Body Dressing (QC): 6 On/Off Footwear (QC): 6 Toileting(FIM): 6 Toileting Hygiene (QC): 6 Toilet/Commode Transfer(FIM): 6 Toilet/Commode Transfer (QC): 6 Shower Transfer(FIM): 5 Additional Goals: 1-Demonstrate ADL Tasks, 2-Verbalize Understanding, 3- ImproveStrength/Imani 1=Demonstrate adherence to instructed precautions during ADL tasks. 2=Patient will verbalize/demonstrate understanding of assistive devices/ modifications for ADL. 3=Patient will improve strength/tolerance for activity to enable patient to perform ADL's. OT Education/Plan Discharge Recommendations Plan/Recommendations: Continue POC Treatment Plan/Plan of Care Patient would benefit from OT for education, treatment and training to promote independence in ADL's, mobility, safety and/or upper extremity function for ADL' s. Plan of Care: ADL Retraining, Caregiver Training, Functional Mobility, Group Exercise/Act as Ind, UE Funct Exercise/Act Treatment Duration: August 20, 2018 Frequency: At least 5 of 7 days/Wk (IRF) Estimated Hrs Per Day: 1.5 hours per day Agreement: Yes Rehab Potential: Fair Time/GCodes Start Time: 09:30 Stop Time: 10:45 Total Time Billed (hr/min): 75 Billed Treatment Time visit, 45 minutes ADL, 30 minutes exercise RICKIE HAMPTON OT August 08, 2018 12:35
[2018-08-08 16:26] VITALS: BP 120/75
--- NOTE | 2018-08-08 16:30 | NUR ---
PATIENT REQUESTING FLOOR CLEANER TO TALK TO HIM ABOUT DIABETES EDUCATION AND ORDER PUT IN. EDUCATION NURSE HAS NOT YET TALKED TO HIM AND MESSAGE SENT TO HIM TO PLEASE SEE TOMORROW SINCE PT. IS GOING HOME TOMORROW.
--- NOTE | 2018-08-08 17:09 | Wound Care Assessment ---
Wound Care Assessment Date Seen by Provider: August 08, 2018 Time Seen by Provider: 17:00 Chief Complaint Sacral ulcer. HPI The patient is a 62 year old male with pressure ulcer of sacral area. He notes stinging pain in wound. This has resolved into a Stage 2 ulcer from one that was classified as suspected deep tissue injury on 07/29/18. This has been dressed with Allevyn and the wound is soupy. Dressings are changed to Tomi 's Butt Paste TID. He may be discharged on this wound treatment and may follow- up in [facility] as needed. I gave him one of our cards and encouraged him to call if needed. Past Medical History: Admits Diabetes Type II Hypertension. Smoking Status: Former Smoker Recreational Drug Use: No Alcohol Use: Denies Use Review of Systems Pulmonary: No Dyspnea Cardiovascular: No: Chest Pain Exam Vital Signs Date Time Temp Pulse Resp B/P (MAP) Pulse Ox O2 Delivery O2 Flow Rate FiO2 08/08/18 16:26 98.2 79 16 120/75 (90) 97 Room Air 08/08/18 15:18 1.00 Capillary Refill : General Appearance: no apparent distress HEENT: normal ENT inspection Neck: normal inspection Respiratory: no respiratory distress Back: other (Sacral ulcer -- 4.5 x 2.0 x 0.2 cm, cluster of two, base 75% slough with islands of viable dermis, looks soupy, mod. s.s. drainage.) Results Laboratory Tests 08/07/18 21:04: Glucometer 59*L 08/07/18 21:26: Glucometer 86 08/07/18 23:27: Glucometer 112H 08/08/18 05:25: Glucometer 135H 08/08/18 12:12: Glucometer 166H 08/08/18 16:21: Glucometer 111H Assessment/Plan/Dx 1. Stage 2 pressure ulcer of sacrum, overly moist with current dressing. 2. Recent episode of septic shock, on ventilator, with decreased mobility. Plan: Change to Tomi's Butt Paste TID. Will see as needed as out-patient. SPENSER ROBLES MD August 08, 2018 17:09
--- NOTE | 2018-08-08 17:53 | NUR ---
TENONER OPERATOR met with patient to obtain choice for home health services. Patient has selected [facility], [facility] sent referral. TENONER OPERATOR received confirmation from [facility] of acceptance with start of care on 519. TENONER OPERATOR informed patient that this.
--- NOTE | 2018-08-08 18:00 | NUR ---
DR. ROBLES HERE TO SEE PATIENT. SACRAL WOUND IS MOIST AND ALLEVYN DC'D AND WILL START ON BUTT PASTE.
[2018-08-08] MEDS: CYCLOBENZAPRINE 10 MG (FLEXERIL) TAB PO SCH (20:18)
[2018-08-08] MEDS: AMITRIPTYLINE 50 MG (ELAVIL) TAB PO SCH (20:19)
[2018-08-08] MEDS: ZINC OXIDE 16% OINT (BUTT PASTE) 113 GM TUBE TOP SCH (20:20)
[2018-08-09] MEDS: RT-ALBUTEROL/IPRATROPIUM 3 ML (DUONEB) VIAL INH SCH ×3 (02:18→10:50)
[2018-08-09 05:10] LABS: BASOPHILS % (AUTO) 0 % (0-10); EOSINOPHILS # (AUTO) 0.1 10^3/uL (0.0-0.3); EOSINOPHILS % (AUTO) 0 % (0-10); HEMATOCRIT 34 % (40-54); LYMPHOCYTES # (AUTO) 1.5 X 10^3 (1.0-4.0); LYMPHOCYTES % (AUTO) 12 % (12-44); MEAN CORPUSCULAR HEMOGLOBIN 29 PG (25-34); MEAN CORPUSCULAR HGB CONC 33 G/DL (32-36); MEAN CORPUSCULAR VOLUME 89 FL (80-99); MEAN PLATELET VOLUME 10.9 FL (7.4-10.4); MONOCYTES # (AUTO) 1.3 X 10^3 (0.0-1.0); MONOCYTES % (AUTO) 10 % (0-12); NEUTROPHILS # (AUTO) 9.8 X 10^3 (1.8-7.8); NEUTROPHILS % (AUTO) 77 % (42-75); PLATELET COUNT 334 10^3/uL (130-400); RED CELL DISTRIBUTION WIDTH 14.2 % (10.0-14.5); WHITE BLOOD COUNT 12.7 10^3/uL (4.3-11.0)
[2018-08-09 05:12] VITALS: BP 99/66
[2018-08-09 05:27] LABS: ALANINE AMINOTRANSFERASE 34 U/L (0-55); ALBUMIN 3.8 GM/DL (3.2-4.5); ALKALINE PHOSPHATASE 64 U/L (40-136); BILIRUBIN,TOTAL 0.4 MG/DL (0.1-1.0); BUN/CREATININE RATIO 35; CALCIUM 9.5 MG/DL (8.5-10.1); CARBON DIOXIDE 22 MMOL/L (21-32); CHLORIDE 104 MMOL/L (98-107); GFR ESTIMATED > 60; GLUCOSE 89 MG/DL (70-105); POTASSIUM 4.6 MMOL/L (3.6-5.0); SODIUM 140 MMOL/L (135-145); TOTAL PROTEIN 6.1 GM/DL (6.4-8.2)
[2018-08-09] MEDS: RT-ADVAIR HFA 115/21 MCG PER PUFF IH SCH (06:39)
[2018-08-09] MEDS: PANTOPRAZOLE 40 MG (PROTONIX) TAB PO SCH (06:51)
[2018-08-09] MEDS: predniSONE 20 MG TAB PO SCH (06:51)
[2018-08-09] MEDS: TROSPIUM 20 MG (SANCTURA) TAB PO SCH (06:51)
[2018-08-09] MEDS: inSUlin ASPART (NovoLOG) 1 UNIT/0.01 ML (CHARGE PER UNIT) SC SCH (06:52)
[2018-08-09] MEDS ORDERED: OXYC-471 PO (08:09)
[2018-08-09] MEDS ORDERED: DIAZ2TAB2 PO (08:09)
[2018-08-09] MEDS ORDERED: FURO20TA4 PO (08:09)
[2018-08-09] MEDS ORDERED: INSU100V16 SC (08:10)
[2018-08-09] MEDS ORDERED: PANT40TA3 PO (08:10)
--- NOTE | 2018-08-09 08:13 | D/C HH Face to Face Order ---
D/C Face to Face Orders Instructions for Patient Via [facility], Patient Instructions/FollowUp: Dr Nuno in 1 week Physician to follow Patient: Dr Elijah Nuno Discharge Diet for Home: ADA Diet Patient Problems: Debility s/p critical illness DM labile control HTN Edema Dysphagia Goals for Patient: Return to independent living Patient Data-Allergies,Ht & Wt Patient Allergies: Coded Allergies: No Known Drug Allergies (Unverified , 12/09/14) Height (Feet): 6 Height (Inches): 1.00 Weight (Pounds): 257 Weight (Ounces): 3.0 Home Health Need/Face to Face Date of Face to Face: August 09, 2018 Clinical Findings: Generalized weakness and fatigue, Instability, Muscle weakness, Shortness of breath, Unsteady gait I have seen Pt [id number]: Yes Discharged To: Home Diagnosis/Conditions: Debility s/p critical illness DM labile control HTN Edema Dysphagia Patient is Homebound due to: Cindy fall risk due to instabilty, Muscle weakness Homebound Status Due to the above stated illness, injury or surgical procedure (medical condition or diagnosis) and associated clinical findings, the patient is homebound because of his/her inability to leave home except with aid of a supportive device and/or person AND leaving the home requires a considerable and taxing effort or is medically contraindicated. Pt req the following assistanc: [facility] Nursing Orders Home Health Services Order: Nursing Services, Physical Therapy-Evaluate & Treat , Speech Language-Evaluate & Treat Certify Stmt I certify that this patient is under my care and that I, a nurse practitioner or a physician; a physician assistant primary care working with me, had a face to face encounter that - meets the physician face to face encounter requirements with this patient as dated. ANGÉLICA DAVIS DO August 09, 2018 08:13
[2018-08-09] MEDS ORDERED: PRED10TA22 PO (08:14)
--- NOTE | 2018-08-09 08:16 | Discharge Summary ---
Diagnosis/Chief Complaint Date of Admission July 30, 2018 at 10:15 Date of Discharge Discharge Date: August 09, 2018 Discharge Diagnosis Assess & Plan/Chief Complaint Assessment: Myopathy Vertigo acute on chronic Hypoglycemia Edema Leukocytosis of unknown source Hyperkalemia Plan: IRF protocol Return to [place] with family will be planned which is reasonable Monitor sugars but appears improved today so will hold on increasing insulin due to hypoglycemia hx Home meds Hold long-acting narcs Decrease insulin due to hypoglycemia but will increase back soon Memory test reviewed Lasix for edema along with LACHELLE hose prn Monitor potassium level DC home tomorrow Check labs in am (1) Myopathy (2) Chronic back pain (3) Severe sepsis (4) Essential (primary) hypertension (5) Normocytic anemia (6) Thrombocytopenia (7) Acute renal failure (8) Insulin dependent diabetes mellitus (9) Volume depletion (10) COPD (chronic obstructive pulmonary disease) (11) Acute hyperkalemia (12) Acute kidney injury (13) Acute respiratory failure with hypoxemia (14) Altered mental status (15) Left bundle branch block (LBBB) determined by electrocardiography Discharge Summary Discharge Physical Examination Allergies: Coded Allergies: No Known Drug Allergies (Unverified , 12/09/14) Vitals & I&Os Vital Signs Date Time Temp Pulse Resp B/P (MAP) Pulse Ox O2 Delivery O2 Flow Rate FiO2 08/09/18 10:54 95 Room Air 08/09/18 09:00 1.00 08/09/18 05:12 98.4 91 18 99/66 (77) General Appearance: Alert, Oriented X3, Cooperative Respiratory: Clear to Auscultation, Normal Air Movement Neuro: Normal Gait, Normal Speech, Strength at 5/5 X4 Ext Psych/Mental Status: Mental Status NL, Mood NL Hospital Course Was the Problem List Reviewed?: Yes Hospital course: patient was admitted after a lengthy critical illness which ultimately required 2.5 days of intubation. Severe sepsis had caused significant debility requiring a stay in IRF. Patient participated in all therapies and bowels returned to normal after meds given. Blood sugars were monitored closely due to hypoglycemia and labile high blood sugars but returned to stability by time of DC. Urination had returned to normal and edema had improved with prn Lasix PO. Labs remained stable as did renal function. Patient was able to return to [facility] with independent ambulation and ADL's and did not require home O2 at [facility]. Labs (last 24 hrs) Laboratory Tests 07/30/18 11:02: Glucometer 311H 07/30/18 16:47: Glucometer 301H 07/30/18 20:33: Glucometer 346H 07/31/18 06:10: White Blood Count 11.4H, Red Blood Count 4.22L, Hemoglobin 12.1L, Hematocrit 36L , Mean Corpuscular Volume 86, Mean Corpuscular Hemoglobin 29, Mean Corpuscular Hemoglobin Concent 34, Red Cell Distribution Width 12.9, Platelet Count 238, Mean Platelet Volume 10.7H, Neutrophils (%) (Auto) 84H, Lymphocytes (%) (Auto) 9L, Monocytes (%) (Auto) 7, Eosinophils (%) (Auto) 0, Basophils (%) (Auto) 0, Neutrophils # (Auto) 9.6H, Lymphocytes # (Auto) 1.0, Monocytes # (Auto) 0.8, Eosinophils # (Auto) 0.0, Basophils # (Auto) 0.0, Sodium Level 138, Potassium Level 4.2, Chloride Level 102, Carbon Dioxide Level 27, Anion Gap 9, Blood Urea Nitrogen 29H, Creatinine 0.85, Estimat Glomerular Filtration Rate > 60, BUN/Creatinine Ratio 34, Glucose Level 272H, Calcium Level 8.9, Corrected Calcium 9.3, Total Bilirubin 0.7, Aspartate Amino Transf (AST/SGOT) 15, Alanine Aminotransferase (ALT/SGPT) 24, Alkaline Phosphatase 56, Total Protein 5.9L, Albumin 3.5 07/31/18 06:11: Glucometer 225H 07/31/18 10:58: Glucometer 117H 07/31/18 15:29: Glucometer 60*L 07/31/18 16:03: Glucometer 82 07/31/18 20:54: Glucometer 240H 07/31/18 21:55: Glucometer 235H 08/01/18 06:39: Glucometer 157H 08/01/18 11:02: Glucometer 198H 08/01/18 15:33: Glucometer 209H 08/01/18 20:09: Glucometer 200H 08/02/18 05:46: Glucometer 117H 08/02/18 12:00: Glucometer 216H 08/02/18 17:35: Glucometer 134H 08/02/18 21:50: Glucometer 212H 08/03/18 05:46: Glucometer 221H 08/03/18 11:00: Glucometer 315H 08/03/18 15:30: Glucometer 352H 08/03/18 20:06: Glucometer 238H 08/04/18 05:16: Glucometer 147H 08/04/18 11:11: Glucometer 245H 08/04/18 16:18: Glucometer 164H 08/04/18 20:09: Glucometer 188H 08/05/18 05:10: White Blood Count 15.4H, Red Blood Count 4.32L, Hemoglobin 12.4L, Hematocrit 39L , Mean Corpuscular Volume 90, Mean Corpuscular Hemoglobin 29, Mean Corpuscular Hemoglobin Concent 32, Red Cell Distribution Width 13.9, Platelet Count 323, Mean Platelet Volume 11.3H, Neutrophils (%) (Auto) 74, Lymphocytes (%) (Auto) 16, Monocytes (%) (Auto) 10, Eosinophils (%) (Auto) 1, Basophils (%) (Auto) 0, Neutrophils # (Auto) 11.4H, Lymphocytes # (Auto) 2.5, Monocytes # (Auto) 1.5H, Eosinophils # (Auto) 0.1, Basophils # (Auto) 0.0, Neutrophils % (Manual) 72, Lymphocytes % (Manual) 19, Monocytes % (Manual) 8, Eosinophils % (Manual) 1, Sodium Level 139, Potassium Level 5.1H, Chloride Level 101, Carbon Dioxide Level 25, Anion Gap 13, Blood Urea Nitrogen 26H, Creatinine 1.13, Estimat Glomerular Filtration Rate > 60, BUN/Creatinine Ratio 23, Glucose Level 158H, Calcium Level 9.7, Corrected Calcium 9.9, Total Bilirubin 0.5, Aspartate Amino Transf (AST/SGOT) 15, Alanine Aminotransferase (ALT/SGPT) 37, Alkaline Phosphatase 78, Total Protein 6.2L, Albumin 3.7 08/05/18 05:19: Glucometer 216H 08/05/18 10:41: Potassium Level 5.4H 08/05/18 12:05: Glucometer 115H 08/05/18 16:20: Glucometer 113H 08/05/18 20:54: Glucometer 142H 08/06/18 05:25: Glucometer 172H 08/06/18 11:04: Glucometer 104 08/06/18 15:44: Glucometer 319H 08/06/18 21:06: Glucometer 199H 08/07/18 04:55: Sodium Level 139, Potassium Level 4.4, Chloride Level 102, Carbon Dioxide Level 23, Anion Gap 14, Blood Urea Nitrogen 32H, Creatinine 1.25, Estimat Glomerular Filtration Rate 59, BUN/Creatinine Ratio 26, Glucose Level 182H, Calcium Level 9.5, Magnesium Level 2.0 08/07/18 12:09: Glucometer 208H 08/07/18 16:18: Glucometer 140H 08/07/18 21:04: Glucometer 59*L 08/07/18 21:26: Glucometer 86 08/07/18 23:27: Glucometer 112H 08/08/18 05:25: Glucometer 135H 08/08/18 12:12: Glucometer 166H 08/08/18 16:21: Glucometer 111H 08/08/18 20:19: Glucometer 166H 08/09/18 04:49: White Blood Count 12.7H, Red Blood Count 3.79L, Hemoglobin 11.0L, Hematocrit 34L , Mean Corpuscular Volume 89, Mean Corpuscular Hemoglobin 29, Mean Corpuscular Hemoglobin Concent 33, Red Cell Distribution Width 14.2, Platelet Count 334, Mean Platelet Volume 10.9H, Neutrophils (%) (Auto) 77H, Lymphocytes (%) (Auto) 12, Monocytes (%) (Auto) 10, Eosinophils (%) (Auto) 0, Basophils (%) (Auto) 0, Neutrophils # (Auto) 9.8H, Lymphocytes # (Auto) 1.5, Monocytes # (Auto) 1.3H, Eosinophils # (Auto) 0.1, Basophils # (Auto) 0.0, Sodium Level 140, Potassium L evel 4.6, Chloride Level 104, Carbon Dioxide Level 22, Anion Gap 14, Blood Urea Nitrogen 38H, Creatinine 1.10, Estimat Glomerular Filtration Rate > 60, BUN/Creatinine Ratio 35, Glucose Level 89, Calcium Level 9.5, Corrected Calcium 9.7, Total Bilirubin 0.4, Aspartate Amino Transf (AST/SGOT) 16, Alanine Aminotransferase (ALT/SGPT) 34, Alkaline Phosphatase 64, Total Protein 6.1L, Albumin 3.8 Pending Labs Laboratory Tests 07/30/18 11:02: Glucometer 311 07/30/18 16:47: Glucometer 301 07/30/18 20:33: Glucometer 346 07/31/18 06:10: White Blood Count 11.4, Red Blood Count 4.22, Hemoglobin 12.1, Hematocrit 36, Mean Corpuscular Volume 86, Mean Corpuscular Hemoglobin 29, Mean Corpuscular Hemoglobin Concent 34, Red Cell Distribution Width 12.9, Platelet Count 238, Mean Platelet Volume 10.7, Neutrophils (%) (Auto) 84, Lymphocytes (%) (Auto) 9, Monocytes (%) (Auto) 7, Eosinophils (%) (Auto) 0, Basophils (%) (Auto) 0, Neutrophils # (Auto) 9.6, Lymphocytes # (Auto) 1.0, Monocytes # (Auto) 0.8, Eosinophils # (Auto) 0.0, Basophils # (Auto) 0.0, Sodium Level 138, Potassium Level 4.2, Chloride Level 102, Carbon Dioxide Level 27, Anion Gap 9, Blood Urea Nitrogen 29, Creatinine 0.85, Estimat Glomerular Filtration Rate > 60, BUN/Creatinine Ratio 34, Glucose Level 272, Calcium Level 8.9, Corrected Calcium 9.3, Total Bilirubin 0.7, Aspartate Amino Transf (AST/SGOT) 15, Alanine Aminotransferase (ALT/SGPT) 24, Alkaline Phosphatase 56, Total Protein 5.9, Albumin 3.5 07/31/18 06:11: Glucometer 225 07/31/18 10:58: Glucometer 117 07/31/18 15:29: Glucometer 60 07/31/18 16:03: Glucometer 82 07/31/18 20:54: Glucometer 240 07/31/18 21:55: Glucometer 235 08/01/18 06:39: Glucometer 157 08/01/18 11:02: Glucometer 198 08/01/18 15:33: Glucometer 209 08/01/18 20:09: Glucometer 200 08/02/18 05:46: Glucometer 117 08/02/18 12:00: Glucometer 216 08/02/18 17:35: Glucometer 134 08/02/18 21:50: Glucometer 212 08/03/18 05:46: Glucometer 221 08/03/18 11:00: Glucometer 315 08/03/18 15:30: Glucometer 352 08/03/18 20:06: Glucometer 238 08/04/18 05:16: Glucometer 147 08/04/18 11:11: Glucometer 245 08/04/18 16:18: Glucometer 164 08/04/18 20:09: Glucometer 188 08/05/18 05:10: White Blood Count 15.4, Red Blood Count 4.32, Hemoglobin 12.4, Hematocrit 39, Mean Corpuscular Volume 90, Mean Corpuscular Hemoglobin 29, Mean Corpuscular Hemoglobin Concent 32, Red Cell Distribution Width 13.9, Platelet Count 323, Mean Platelet Volume 11.3, Neutrophils (%) (Auto) 74, Lymphocytes (%) (Auto) 16, Monocytes (%) (Auto) 10, Eosinophils (%) (Auto) 1, Basophils (%) (Auto) 0, Neutrophils # (Auto) 11.4, Lymphocytes # (Auto) 2.5, Monocytes # (Auto) 1.5, Eosinophils # (Auto) 0.1, Basophils # (Auto) 0.0, Neutrophils % (Manual) 72, Lymphocytes % (Manual) 19, Monocytes % (Manual) 8, Eosinophils % (Manual) 1, Sodium Level 139, Potassium Level 5.1, Chloride Level 101, Carbon Dioxide Level 25, Anion Gap 13, Blood Urea Nitrogen 26, Creatinine 1.13, Estimat Glomerular Filtration Rate > 60, BUN/Creatinine Ratio 23, Glucose Level 158, Calcium Level 9.7, Corrected Calcium 9.9, Total Bilirubin 0.5, Aspartate Amino Transf (AST/SGOT) 15, Alanine Aminotransferase (ALT/SGPT) 37, Alkaline Phosphatase 78, Total Protein 6.2, Albumin 3.7 08/05/18 05:19: Glucometer 216 08/05/18 10:41: Potassium Level 5.4 08/05/18 12:05: Glucometer 115 08/05/18 16:20: Glucometer 113 08/05/18 20:54: Glucometer 142 08/06/18 05:25: Glucometer 172 08/06/18 11:04: Glucometer 104 08/06/18 15:44: Glucometer 319 08/06/18 21:06: Glucometer 199 08/07/18 04:55: Sodium Level 139, Potassium Level 4.4, Chloride Level 102, Carbon Dioxide Level 23, Anion Gap 14, Blood Urea Nitrogen 32, Creatinine 1.25, Estimat Glomerular Filtration Rate 59, BUN/Creatinine Ratio 26, Glucose Level 182, Calcium Level 9.5, Magnesium Level 2.0 08/07/18 12:09: Glucometer 208 08/07/18 16:18: Glucometer 140 08/07/18 21:04: Glucometer 59 08/07/18 21:26: Glucometer 86 08/07/18 23:27: Glucometer 112 08/08/18 05:25: Glucometer 135 08/08/18 12:12: Glucometer 166 08/08/18 16:21: Glucometer 111 08/08/18 20:19: Glucometer 166 08/09/18 04:49: White Blood Count 12.7, Red Blood Count 3.79, Hemoglobin 11.0, Hematocrit 34, Mean Corpuscular Volume 89, Mean Corpuscular Hemoglobin 29, Mean Corpuscular Hemoglobin Concent 33, Red Cell Distribution Width 14.2, Platelet Count 334, Mean Platelet Volume 10.9, Neutrophils (%) (Auto) 77, Lymphocytes (%) (Auto) 12, Monocytes (%) (Auto) 10, Eosinophils (%) (Auto) 0, Basophils (%) (Auto) 0, Neutrophils # (Auto) 9.8, Lymphocytes # (Auto) 1.5, Monocytes # (Auto) 1.3, Eosinophils # (Auto) 0.1, Basophils # (Auto) 0.0, Sodium Level 140, Potassium Level 4.6, Chloride Level 104, Carbon Dioxide Level 22, Anion Gap 14, Blood Urea Nitrogen 38, Creatinine 1.10, Estimat Glomerular Filtration Rate > 60, BUN/Creatinine Ratio 35, Glucose Level 89, Calcium Level 9.5, Corrected Calcium 9.7, Total Bilirubin 0.4, Aspartate Amino Transf (AST/SGOT) 16, Alanine Aminotransferase (ALT/SGPT) 34, Alkaline Phosphatase 64, Total Protein 6.1, Albumin 3.8 Discharge Home Medications: Active Scripts Active Prednisone 10 Mg Tab.ds.pk 10 Mg PO DAILY Take 1 pill daily for 2 days then 1/2 pill daily for 4 days then stop Novolog (Insulin Aspart) 100 Unit/1 Ml Susp 20 Unit SC AC 30 Days Pantoprazole Sodium 40 Mg Tablet.dr 40 Mg PO DAILY@0700 Furosemide 20 Mg Tablet 20 Mg PO DAILY PRN Diazepam 2 Mg Tablet 2 Mg PO Q8H PRN Oxycodone-Acetaminophen 5-325 (Oxycodone HCl/Acetaminophen) 1 Each Tablet 1 Tab PO TID PRN Metoprolol Succinate 50 Mg Tab.er.24h 50 Mg PO DAILY Reported Ventolin Hfa (Albuterol Sulfate) 18 Gm Hfa.aer.ad 1-2 Puff IH QID Levemir (Insulin Determir) 1,000 Units/10 Ml Soln 30 Units SQ BID Glimepiride 4 Mg Tablet 4 Mg PO BID Diclofenac Sodium 75 Mg Tablet.dr 75 Mg PO BID Vitamin D3 (Cholecalciferol (Vitamin D3)) 1,000 Unit Capsule 1,000 Unit PO DAILY Symbicort 160-4.5 Mcg Inhaler (Budesonide/Formoterol Fumarate) 10.2 Gm Hfa.aer.ad 2 Puff IH BID Fluticasone Propionate 16 Gm [place].susp 2 Sprays NSEACH DAILY Meclizine HCl 25 Mg Tablet 12.5 Mg PO QID TAKES 1/2 OF A (25 MG) TABLET Vesicare (Solifenacin Succinate) 5 Mg Tablet 5 Mg PO DAILY Amitriptyline HCl 50 Mg Tablet 50 Mg PO HS Cyclobenzaprine HCl 10 Mg Tablet 10 Mg PO HS Gabapentin 600 Mg Tablet 600 Mg PO TID Instructions to patient/family Please see electronic discharge instructions given to patient. Diagnosis/Problems Diagnosis/Problems (1) Myopathy (2) Chronic back pain Status: Chronic (3) Severe sepsis Status: Acute (4) Essential (primary) hypertension Status: Chronic (5) Normocytic anemia Status: Chronic (6) Thrombocytopenia Status: Acute (7) Acute renal failure Status: Acute (8) Insulin dependent diabetes mellitus Status: Chronic (9) Volume depletion Status: Acute (10) COPD (chronic obstructive pulmonary disease) Status: Chronic (11) Acute hyperkalemia Status: Acute (12) Acute kidney injury Status: Acute (13) Acute respiratory failure with hypoxemia Status: Acute (14) Altered mental status Status: Resolved (15) Left bundle branch block (LBBB) determined by electrocardiography Status: Chronic Clinical Quality Measures DVT/VTE Risk/Contraindication: Risk Factor Score Per Nursin RFS Level Per Nursing on Admit: 4+=Very High ANGÉLICA DAVIS DO August 09, 2018 08:16
[2018-08-09] MEDS: VITAMIN D3 1,000 UNITS (CHOLECALCIFEROL) TABLET PO SCH (08:57)
[2018-08-09] MEDS: ETODOLAC 300 MG (LODINE) CAP PO SCH (08:57)
[2018-08-09] MEDS: GABAPENTIN 600 MG (NEURONTIN) TAB PO SCH (08:57)
[2018-08-09] MEDS: ZINC OXIDE 16% OINT (BUTT PASTE) 113 GM TUBE TOP SCH (08:58)
[2018-08-09] MEDS: meTOproloL SUCCINATE 50 MG (TOPROL XL) TAB PO SCH (08:58)
[2018-08-09] MEDS: GLIMEPIRIDE 4 MG (AMARYL) TAB PO SCH (08:58)
[2018-08-09] MEDS: MECLIZINE 25 MG (ANTIVERT) TAB PO SCH (08:58)
[2018-08-09] MEDS: FLUTICASONE NASAL SPRAY (FLONASE) 16 GM BTL NS SCH (08:59)
--- NOTE | 2018-08-09 09:42 | Therapy Team Discharge Summary ---
Therapy Discharge Summary Discharge Recommendations Date of Discharge 08/09/2018 Therapy D/C Recommendations: Home w/ Family Support, Occupational Therapy Home Care Physical Therapy The patient was admitted to ARU post acute hospital stay due to respiratory distress and debility. Prior to his hospital stay, he was mod indep at home. Upon admission to this unit, he was min assist with transfers, min assist with gait and went up/down a curb step with min assist. Treatment has focused on functional strength, balance and safety to progress his transfer and gait ability. He has made good progress and achieved all goals to a satisfactory level. He is mod indep with gait and transfers as well as on stairs at this time. DC PT and recommend [facility] to follow. Occupational Therapy Decreased Activ Tolerance, Impaired I ADL's, Impaired Self-Care Skills PT Shelter Goals Founder & Ceo Goals PT Shelter Goals Time Frame: August 20, 2018 Transfers (B,C,W/C) (FIM): 6 (met) Roll Left to Right (QC): 6 Sit to Lying (QC): 6 Lying-Sitting on Side/Bed(QC): 6 Sit to Stand (QC): 6 Chair/Bqe-ws-Rvblw Xfer(QC): 6 Car Transfer (QC): 6 Gait (FIM): 6 Distance: 300' Walk 10 feet (QC): 6 Walk 10ft-Uneven Surface(QC): 6 Walk 50ft with 2 Turns (QC): 6 Walk 150 ft (QC): 6 Gait Level of Assist: 6 Gait Assistive Device: FWW Stairs (FIM): 2 (exceeded) # of Steps: 4 1 Step (curb) (QC): 4 4 Steps (QC): 4 Stairs Level Of Assist: 5 all goals met to a satisfactory level OT Founder & Ceo Goals Founder [employer] Ceo Goals Time Frame: August 20, 2018 Eating (FIM): 6 Eating (QC): 6 Oral Hygiene (QC): 6 Grooming(FIM): 6 Bathing(FIM): 5 Shower/Bathe Self (QC): 5 Upper Body Dressing(FIM): 6 Upper Body Dressing (QC): 6 Lower Body Dressing(FIM): 6 Lower Body Dressing (QC): 6 On/Off Footwear (QC): 6 Toileting(FIM): 6 Toileting Hygiene (QC): 6 Toilet/Commode Transfer(FIM): 6 Toilet/Commode Transfer (QC): 6 Shower Transfer(FIM): 5 Additional Goals: 1-Demonstrate ADL Tasks, 2-Verbalize Understanding, 3- ImproveStrength/Imani 1=Demonstrate adherence to instructed precautions during ADL tasks. 2=Patient will verbalize/demonstrate understanding of assistive devices/ modifications for ADL. 3=Patient will improve strength/tolerance for activity to enable patient to perform ADL's. Speech Shelter Goals Founder [employer] Ceo Goals The patient will maintain adequate nutrition/hydration via safe effective swallow function. The patient will improve his safety and independence in order to return home. SANTIAGO RIVERA PT August 09, 2018 09:42
--- NOTE | 2018-08-09 10:04 | Therapy Team Discharge Summary ---
Therapy Discharge Summary Discharge Recommendations Date of Discharge Therapy D/C Recommendations: Home w/ Family Support, Occupational Therapy Home Care Occupational Therapy Pt admitted to ARU following acute hospitalization for acute respiratory failure /aspiration pneumonia. On admission pt required max assits for LE dressing, mod assist for bathing, and min assist for grooming and toilet transfer. Skilled OT intervention focused on ADL training, transfers, strengthening, and safety. Pt made good progress with therapy and by discharge is completing eating and grooming independently and other basic ADLs and transfers with modified independence. Pt met all OT LTG. Pt discharging home today. D/C ARU OT at this time. Decreased Activ Tolerance, Impaired I ADL's, Impaired Self-Care Skills PT Usp Goals Usp Goals PT Supervisor [employer] Goals Time Frame: August 20, 2018 Transfers (B,C,W/C) (FIM): 6 (met) Roll Left to Right (QC): 6 Sit to Lying (QC): 6 Lying-Sitting on Side/Bed(QC): 6 Sit to Stand (QC): 6 Chair/Mne-ck-Etmod Xfer(QC): 6 Car Transfer (QC): 6 Gait (FIM): 6 Distance: 300' Walk 10 feet (QC): 6 Walk 10ft-Uneven Surface(QC): 6 Walk 50ft with 2 Turns (QC): 6 Walk 150 ft (QC): 6 Gait Level of Assist: 6 Gait Assistive Device: FWW Stairs (FIM): 2 (exceeded) # of Steps: 4 1 Step (curb) (QC): 4 4 Steps (QC): 4 Stairs Level Of Assist: 5 OT Supervisor [employer] Goals Usp Goals Time Frame: August 20, 2018 Eating (FIM): 6 Eating (QC): 6 Oral Hygiene (QC): 6 Grooming(FIM): 6 Bathing(FIM): 5 Shower/Bathe Self (QC): 5 Upper Body Dressing(FIM): 6 Upper Body Dressing (QC): 6 Lower Body Dressing(FIM): 6 Lower Body Dressing (QC): 6 On/Off Footwear (QC): 6 Toileting(FIM): 6 Toileting Hygiene (QC): 6 Toilet/Commode Transfer(FIM): 6 Toilet/Commode Transfer (QC): 6 Shower Transfer(FIM): 5 Additional Goals: 1-Demonstrate ADL Tasks, 2-Verbalize Understanding, 3- ImproveStrength/Imani 1=Demonstrate adherence to instructed precautions during ADL tasks. 2=Patient will verbalize/demonstrate understanding of assistive devices/ modifications for ADL. 3=Patient will improve strength/tolerance for activity to enable patient to perform ADL's. Speech Super[employer] Goals Usp Goals The patient will maintain adequate nutrition/hydration via safe effective swallow function. The patient will improve his safety and independence in order to return home. HAMLET MORRIS OT August 09, 2018 10:03
--- NOTE | 2018-08-09 11:15 | NUR ---
CORPORATE RISK ANALYST faxed DC orders to [facility].
--- NOTE | 2018-08-09 13:38 | Therapy Team Discharge Summary ---
Therapy Discharge Summary Discharge Recommendations Date of Discharge August 09, 2018 at 11:00 Therapy D/C Recommendations: Home w/ Family Support, Occupational Therapy Home Care Occupational Therapy Decreased Activ Tolerance, Impaired I ADL's, Impaired Self-Care Skills Speech-Language Pathology The patient was admitted to the ARU from acute due to respiratory distress and debility. The patient was evaluated by ST for cognitive-communication with below normal range for memory and problem solving. The patient received skilled ST with focus on these areas. The patient also had oral dysphagia which required nectar consistency liquids with a regular diet. The patient did well with the modified diet and will continue this diet level at home. The patient progressed well and met his goals. The patient is discharged to home today and is discharged from ST at this time. PT Residential Goals Petroleum Supply Specialist Goals PT Petroleum Supply Specialist Goals Time Frame: August 20, 2018 Transfers (B,C,W/C) (FIM): 6 (met) Roll Left to Right (QC): 6 Sit to Lying (QC): 6 Lying-Sitting on Side/Bed(QC): 6 Sit to Stand (QC): 6 Chair/Umt-lo-Breng Xfer(QC): 6 Car Transfer (QC): 6 Gait (FIM): 6 Distance: 300' Walk 10 feet (QC): 6 Walk 10ft-Uneven Surface(QC): 6 Walk 50ft with 2 Turns (QC): 6 Walk 150 ft (QC): 6 Gait Level of Assist: 6 Gait Assistive Device: FWW Stairs (FIM): 2 (exceeded) # of Steps: 4 1 Step (curb) (QC): 4 4 Steps (QC): 4 Stairs Level Of Assist: 5 OT Residential Goals Residential Goals Time Frame: August 20, 2018 Eating (FIM): 6 Eating (QC): 6 Oral Hygiene (QC): 6 Grooming(FIM): 6 Bathing(FIM): 5 Shower/Bathe Self (QC): 5 Upper Body Dressing(FIM): 6 Upper Body Dressing (QC): 6 Lower Body Dressing(FIM): 6 Lower Body Dressing (QC): 6 On/Off Footwear (QC): 6 Toileting(FIM): 6 Toileting Hygiene (QC): 6 Toilet/Commode Transfer(FIM): 6 Toilet/Commode Transfer (QC): 6 Shower Transfer(FIM): 5 Additional Goals: 1-Demonstrate ADL Tasks, 2-Verbalize Understanding, 3- ImproveStrength/Imani 1=Demonstrate adherence to instructed precautions during ADL tasks. 2=Patient will verbalize/demonstrate understanding of assistive devices/modifications for ADL. 3=Patient will improve strength/tolerance for activity to enable patient to perform ADL's. Speech Petroleum Supply Specialist Goals Residential Goals The patient will maintain adequate nutrition/hydration via safe effective swallow function. Met The patient will improve his safety and independence in order to return home. Met MANSOOR CRUZ August 09, 2018 13:38
== END 2018-08-09 11:00 | disposition home health service (06) | DRG 93 ==
PROVIDERS: ADMIT Internal Medicine; ATTEND Internal Medicine
DX: G72.81 Critical illness myopathy (principal); E11.40 Type 2 diabetes mellitus with diabetic neuropathy, unspecified; I12.9 Hypertensive chronic kidney disease with stage 1 through stage 4 chronic kidney disease, or unspecified chronic kidney disease; N18.9 Chronic kidney disease, unspecified; E11.649 Type 2 diabetes mellitus with hypoglycemia without coma; D64.9 Anemia, unspecified; J44.9 Chronic obstructive pulmonary disease, unspecified; R42 Dizziness and giddiness; I73.9 Peripheral vascular disease, unspecified; M54.9 Dorsalgia, unspecified; D69.6 Thrombocytopenia, unspecified; I44.7 Left bundle-branch block, unspecified; R41.82 Altered mental status, unspecified; Z79.4 Long term (current) use of insulin; L89.152 Pressure ulcer of sacral region, stage 2; E11.65 Type 2 diabetes mellitus with hyperglycemia; R60.0 Localized edema; E87.5 Hyperkalemia; D72.829 Elevated white blood cell count, unspecified; Z79.899 Other long term (current) drug therapy; Z87.891 Personal history of nicotine dependence
CPT/HCPCS: 36415; 80048; 80053; 82962; 83735; 84132; 85007; 85025; 85027; 94640; 94760; 94761

== ENCOUNTER → 2018-09-17 | Outpatient (CLI) | payer MEDICARE, MEDICAID ==
[~2018-09-17] MED LIST changes: +FURO20TA4 PO; +HOLD METFORMIN - RECEIVED CONTRAST 20 ML VIAL IV SCH; +IOHEXOL 350 MG/ML 100 ML (OMNIPAQUE 350) VIAL IV ONE; +METO-370 PO; +NS 100 ML (IVPB) BAG IV ONE; +PANT40TA3 PO; +PRED10TA22 PO
[2018-09-17 09:11] LABS: BUN/CREATININE RATIO 20; CREATININE SERUM 1.17 MG/DL (0.60-1.30); GFR ESTIMATED > 60
--- NOTE | 2018-09-17 11:47 | Diagnostic Imaging Report ---
PROCEDURE: CT chest with contrast only. TECHNIQUE: Multiple contiguous axial images were obtained through the chest after administration of intravenous contrast. Auto Exposure Controls were utilized during the CT exam to meet ALARA standards for radiation dose reduction. INDICATION: Shortness of air with low oxygen level. History of tobacco use. CORRELATION STUDY: CT chest 07/22/2018. FINDINGS: 7 mm rounded low-density nodule left lobe of thyroid gland. No pathologically enlarged mediastinal and/or hilar lymph nodes. Heart size is borderline enlarged. No appreciable pericardial effusion. Few small shotty subcentimeter mediastinal lymph nodes. Calcified right hilar granulomas. Gastroesophageal junction relatively unremarkable. Lungs demonstrate minimal atelectasis and/or scarring about both lung bases. No significant consolidating infiltrate. There are several scattered calcified granulomas present. Coronal reformat image 30, series 601, suggests small area of nodularity anterior medial aspect right upper lobe 5 mm in size. Slight low-attenuation of liver parenchyma suggestive of hepatic steatosis. Relatively stable 2.1 cm right adrenal gland mass. Soft tissue mass left suprarenal region has fairly similar attenuation to the spleen, may reflect small splenule, appears unchanged as well. 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 Few small shotty epigastric lymph nodes. Osseous structures with advanced degenerative change. IMPRESSION: 1. Negative for acute abnormality of the chest. 2. Scattered calcified granulomas present. 3. Very questionable area of small nodularity at the right lung apex. This may reflect a small area of scarring. However, pulmonary nodule is not excluded. Repeat CT imaging in approximately 6 months recommended for reassessment. Dictated by: Dictated on workstation # [id number]
== END ==
LOC: RAD 08:31
PROVIDERS: ATTEND Nurse Practitioner Family
DX: J30.9 Allergic rhinitis, unspecified (principal); J84.10 Pulmonary fibrosis, unspecified; Z72.0 Tobacco use
CPT/HCPCS: 36415; 71260; 82565; 84520

== ENCOUNTER 2018-09-20 18:05 | Emergency (ER) | payer MEDICARE, MEDICAID ==
[~2018-09-20] VITALS: Ht 185.4 cm; Wt 120.2 kg
[~2018-09-20 18:05] MED LIST changes: -MUPI1OIN6 TP; -PRD20T PO; -RT-ALBUTEROL SULF 2.5 MG/3 ML PRE-MIX VIAL INH ONE; -SULF1TAB35 PO
--- NOTE | 2018-09-20 18:24 | NUR ---
pt here with " mom". she is staying in the w/r. pt alert gcs 15. pt relates wound on buttock area that he received while in the hospital 3 weeks ago. pt says home care been putting cream on it. pt relates its not getting better. pt has pictures on his phone. pt denies fever at home. pt relates no dressing on it. and its been draining. pt says they did cx on it and he does not know the result. on exam pt has stage 3 ulcer high buttock / coccyx area size of dollar and 1/2 silver dollar. area is red around it but no redness past the wound. area of approx 1 inch is deep and white colored. i did not see drainage. and no lotion on it, no acute sighns of dyspnea noted. lungs cta bilaterally. done zoe pt 183.
--- OUTSIDE RECORDS SUMMARY | 2018-09-20 18:42 | XMS REPORT ---
Author Author Migration, Doctor Organization [facility] Address Unknown Phone Unavailable Care Team Providers Care Rubbish Collector Name Role Phone Migration, Doctor Unavailable Unavailable PROBLEMS Type Condition ICD9-CM Code MVM70-BI Code Onset Dates Condition Status SNOMED Code Problem Diabetes with unspecified complication, type II or unspecified type, uncontrolled 250.92 Active 32126926168798 Problem Type 2 diabetes mellitus with hyperglycemia E11.65 Active 586371584821710 Problem Cervicalgia 723.1 Active 10570177 Problem Chronic rhinitis 472.0 Active 30167964 Problem Diabetes mellitus without mention of complication, type II or unspecified type, uncontrolled 250.02 Active 452614072 Problem Diabetes mellitus without mention of complication, type II or unspecified type, not stated as uncontrolled 250.00 Active 607865597 ALLERGIES No Information ENCOUNTERS Encounter Location Date Diagnosis [facility] [id number] [place] [address] July, Type 2 diabetes mellitus with hyperglycemia E11.65 [facility] [id number] [place] [address] Apr, Type 2 diabetes mellitus with hyperglycemia E11.65 [facility] [id number] [address] Feb, [facility] [id number] [place] [address] Jan, [facility] [id number] [place] [address] Dec, [facility] [id number] [place] [address] Nov, [facility] [id number] [place] [address] Nov, [facility] [id number] [place] [address] Nov, [facility] [id number] [address] Nov, [facility] [id number], [place] [address] Oct, [facility] [address], [place] [address] Oct, [facility] [id number], [place] [address] Oct, [facility] [id number], [place] [address] Oct, Radiculopathy of leg 724.4 and Chronic rhinitis 472.0 [facility] [id number], [place] [address] Oct, [facility] [id number], [place] [address] Oct, Dehydration 276.51 [facility] [id number], [place] [address] Oct, [facility] [id number], [place] [address] Sep, [facility] [id number], [place] [address] Sep, [facility] [id number], [place] [address] Sep, Labyrinthitis 386.30 [facility] [id number], [place] [address] Sep, [facility] [id number], [place] [address] Sep, [facility] [id number] [address] Sep, [facility] [id number] [address] Sep, [facility] [id number], [place] [address] Sep, [facility] [address] [address] Aug, Diabetes mellitus without mention of complication, type II or unspecified type, uncontrolled 250.02 and Lumbar disc disease 722.93 [facility] [id number] [address] July, [facility] [id number] [address] Jun, [facility] [address], [place] [address] Jun, [facility] [address], [place] [address] May, [facility] [address], [place] [address] May, [facility] [address] [address] May, [facility] [id number], [place] [address] May, [facility] [id number] [address] May, [facility] [id number] [address] May, [facility] [address], [place] [address] May, [facility] [address], [place] [address] May, [facility] [id number], [place] [address] Apr, [facility] [address] [id number] [place] [address] Apr, 2014 [facility] [place] [facility] [address] [id number] [place] [address] Apr, 2014 [facility] [place] [facility] [address] [id number] [place] [address] Apr, 2014 [facility] [place] [facility] [address] [id number] [place] [address] Apr, [facility] [place] [facility] [address] [id number] [place] [address] Apr, [facility] [place] [facility] [address] [id number] [place] [address] Mar, [facility] [place] [facility] [address] [id number] [place] [address] Mar, [facility] [address] [id number] [place] [address] Mar, [facility] [address] [id number] [place] [address] Mar, [facility] [address] [facility] [id number] [place] [address] Feb, [facility] [address] [facility] [id number], [place] [address] Feb, [facility] [address] [id number] [address] Feb, [facility] [place] [facility] [address] [id number] [place] [address] Feb, [facility] [place] [facility] [address] [facility] [id number] [place] [address] Feb, [facility] [place] [facility] [address] [id number], [place] [address] Feb, [facility] [place] [facility] [address] [id number], [place] [address] Feb, [facility] [place] [facility] [address] [id number] [place] [address] Feb, [facility] [place] [facility] [address] [id number], [place] [address] Feb, [facility] [place] [facility] [address] [facility] [id number], [place] [address] Feb, [facility] [place] [facility] [address] [id number], [place] [address] Feb, [facility] [place] [facility] [address] [id number] [place] [address] Feb, [facility] [place] [facility] [address] [id number], [place] [address] Jan, [facility] [place] [facility] [address] [id number], [place] [address] Jan, [facility] [place] [facility] [address] [id number], [place] [address] Jan, [facility] [place] [facility] [address] [id number], [place] [address] Jan, [facility] [place] [facility] [address] [facility] [id number], [place] [address] Jan, [facility] [place] [facility] [address] [id number], [place] [address] Jan, [facility] [place] [facility] [address] [id number], [place] [address] Nov, [facility] [address] [id number] [id number] Nov, [facility] [place] [facility] [address] [id number], [place] [address] Oct, [facility] [place] [facility] [address] [id number], [place] [address] Oct, [facility] [address] [id number][place] [address] Aug, [facility] [place] [facility] [address] [facility] [id number] [place] [address] Aug, [facility] [address] [facility] [id number] [place] [address] July, [facility] [place] [facility] [address] [facility] [id number] [place] [address] July, [facility] [address] [facility] [id number][place] [address] July, [facility] [place] [facility] [address] [facility] [id number] [place] [address] July, [facility] [place] [facility] [address] [facility] [id number] [place] [address] Jun, [facility] [place] [facility] [id number] [address] Jun, [facility] [address] [facility] [id number][place] [address] May, [facility] [place] [facility] [id number] [address] May, [facility] [address] [facility] [id number][place] [address] Apr, [facility] [place] [facility] [id number], [place] [address] Apr, [facility] [address] [facility] [id number][place] [id number] Apr, [facility] [place] [facility] [address] [facility] [id number], [place] [address] Apr, [facility] [address] [facility] [id number] [place] [id number] Feb, [facility] [place] [facility] [address] [facility] [id number] [place] [address] Feb, [facility] [address] [facility] [id number][place] [address] Feb, [facility] [place] [facility] [address] [id number], [place] [address] Feb, [facility] [address] [facility] [id number] [place] [address] Jan, [facility] [address] [id number], [place] [address] Jan, [facility] [address] [facility] [id number] [place] [id number] Jan, [facility] [place] [facility] [address] [id number], [place] [address] Jan, [facility] [address] [facility] [id number] [place] [address] Dec, [facility] [place] [facility] [address] [id number] [place] [address] Dec, [facility] [id number], [place] [address] Oct, [facility] [place] [facility] [address] [facility] [id number], [place] [address] Oct, [facility] [place] [facility] [address] [facility] [id number] [place] [address] Oct, [facility] [place] [facility] [address] [facility] [id number], [place] [address] Oct, [facility] [place] [facility] [address] [facility] [id number], [place] [address] Sep, [facility] [place] [facility] [address] [id number], [place] [address] May, [facility] [place] [facility] [address] [facility] [id number], [place] [address] May, [facility] [place] [facility] [address] [facility] [id number], [place] [address] May, [facility] [place] [facility] [address] [facility] [id number], [place] [address] Apr, [facility] [place] [facility] [address] [id number] [place] [address] Apr, 2012 [facility] [place] [facility] [address] [id number] [place] [address] Apr, 2012 [facility] [place] [facility] [address] [id number] [place] [address] Apr, 2012 [facility] [place] [facility] [address] [id number] [place] [address] Apr, 2012 [facility] [place] [facility] [address] [id number] [place] [address] Apr, 2012 [facility] [place] [facility] [address] [id number] [place] [address] Apr, [facility] [place] [facility] [address] [facility] [id number] [place] [address] Jan, [facility] [place] [facility] [address] [id number] [place] [address] Jan, [facility] [place] [facility] [address] [facility] [id number] [place] [address] Aug, [facility] [place] [facility] [address] [facility] [id number] [place] [address] July, [facility] [place] [facility] [address] [facility] [id number], [place] [address] May, [facility] [place] [facility] [address] [facility] [id number], [place] [address] May, [facility] [place] [facility] [address] [id number] [place] [address] Feb, [facility] [place] [facility] [address] [id number] [place] [address] Dec, [facility] [place] [facility] [address] [facility] [id number], [place] [address] Feb, [facility] [place] [facility] [address] [id number], [place] [address] Feb, [facility] [id number], [place] [address] Feb, [facility] [id number], [place] [address] Feb, [facility] [id number], [place] [address] Jan, [facility] [id number], [place] [address] Jan, [facility] [id number], [place] [address] Jan, [facility] [id number], [place] [address] Jan, IMMUNIZATIONS No Known Immunizations SOCIAL HISTORY Never Assessed REASON FOR VISIT EMR-[facility] PLAN OF CARE VITAL SIGNS MEDICATIONS Unknown Medications RESULTS No Results PROCEDURES No Known procedures [...] Surgical History orthopedic surgery-letf shoulder repair, R ankel fx with hardware placed, hardware then removed Hospitalization History [facility] 08/07
--- OUTSIDE RECORDS SUMMARY | 2018-09-20 18:42 | XMS REPORT ---
Author Author Migration, Doctor Organization [facility] Address Unknown Phone Unavailable Care Team Providers Care Research Quality Assurance Analyst Name Role Phone Migration, Doctor Unavailable Unavailable PROBLEMS Type Condition ICD9-CM Code KEM68-[place] Code Onset Dates Condition Status SNOMED Code Problem Diabetes with unspecified complication, type II or unspecified type, uncontrolled 250.92 Active 90602048321744 Problem Type 2 diabetes mellitus with hyperglycemia E11.65 Active 537517601213075 Problem Cervicalgia 723.1 Active 08393723 Problem Chronic rhinitis 472.0 Active 47634836 Problem Diabetes mellitus without mention of complication, type II or unspecified type, uncontrolled 250.02 Active 007200121 Problem Diabetes mellitus without mention of complication, type II or unspecified type, not stated as uncontrolled 250.00 Active 303108130 ALLERGIES No Information ENCOUNTERS Encounter Location Date Diagnosis [facility] [id number] [place] [address] July, Type 2 diabetes mellitus with hyperglycemia E11.65 [facility] [id number] [place] [address] Apr, Type 2 diabetes mellitus with hyperglycemia E11.65 [facility] [id number] [address] Feb, [facility] [id number] [place] [address] Jan, [facility] [id number] [place] [address] Dec, [facility] [id number] [place] [address] Nov, [facility] [id number] [place] [address] Nov, [facility] [id number] [place] [address] Nov, [facility] [id number] [address] Nov, [facility] [id number] [address] Oct, [facility] [id number] [address] Oct, [facility] [id number] [address] Oct, [facility] [id number] [address] Oct, Radiculopathy of leg 724.4 and Chronic rhinitis 472.0 [facility] [place] [id number] [address] Oct, [facility] [id number] [address] Oct, Dehydration 276.51 [facility] [id number] [address] Oct, [facility] [id number] [address] Sep, [facility] [id number] [address] Sep, [facility] [id number] [address] Sep, Labyrinthitis 386.30 [facility] [id number] [address] Sep, [facility] [id number] [address] Sep, [facility] [id number] [address] Sep, [facility] [id number] [place] [address] Sep, [facility] [id number] [address] Sep, [facility] [id number] [address] Aug, Diabetes mellitus without mention of complication, type II or unspecified type, uncontrolled 250.02 and Lumbar disc disease 722.93 [facility] [id number] [address] July, [facility] [id number] [place] [address] Jun, [facility] [id number] [address] Jun, [facility] [id number] [address] May, [facility] [id number] [address] May, [facility] [id number] [place] [address] May, [facility] [id number] [address] May, [facility] [id number] [place] [address] May, [facility] [id number] [address] May, [facility] [id number] [address] May, [facility] [id number] [address] May, [facility] [id number] [address] Apr, [facility] [address] [id number] [place] [address] Apr, 2014 [facility] [place] [facility] [address] [id number] [place] [address] Apr, 2014 [facility] [place] [facility] [address] [id number] [place] [address] Apr, 2014 [facility] [place] [facility] [address] [id number] [place] [address] Apr, [facility] [place] [facility] [address] [id number] [place] [address] Apr, [facility] [place] [facility] [address] [id number] [place] [address] Mar, [facility] [place] [facility] [address] [id number] [place] [address] Mar, [facility] [address] [id number] [place] [address] Mar, [facility] [address] [id number] [place] [address] Mar, [facility] [address] [facility] [id number] [place] [address] Feb, [facility] [address] [facility] [id number] [address] Feb, [facility] [address] [id number] [address] Feb, [facility] [place] [facility] [address] [id number] [place] [address] Feb, [facility] [place] [facility] [address] [facility] [id number] [place] [address] Feb, [facility] [place] [facility] [address] [id number] [address] Feb, [facility] [place] [facility] [address] [id number] [address] Feb, [facility] [place] [facility] [address] [id number] [place] [address] Feb, [facility] [place] [facility] [address] [id number] [address] Feb, [facility] [place] [facility] [address] [facility] [id number] [place] [address] Feb, [facility] [place] [facility] [address] [id number] [address] Feb, [facility] [place] [facility] [address] [id number] [place] [address] Feb, [facility] [place] [facility] [address] [id number] [place] [address] Jan, [facility] [place] [facility] [address] [id number] [place] [address] Jan, [facility] [place] [facility] [address] [id number] [address] Jan, [facility] [place] [facility] [address] [id number] [address] Jan, [facility] [place] [facility] [address] [facility] [id number] [place] [address] Jan, [facility] [place] [facility] [address] [id number] [place] [address] Jan, [facility] [place] [facility] [address] [id number] [place] [address] Nov, [facility] [address] [id number] [address] Nov, [facility] [place] [facility] [address] [id number] [address] Oct, [facility] [place] [facility] [address] [id number] [place] [address] Oct, [facility] [address] [id number][place] [address] Aug, [facility] [place] [facility] [address] [facility] [id number] [place] [address] Aug, [facility] [address] [facility] [id number] [place] [id number] July, [facility] [place] [facility] [address] [facility] [id number] [place] [address] July, [facility] [address] [facility] [id number][place] [id number] July, [facility] [place] [facility] [address] [facility] [id number] [place] [address] July, [facility] [place] [facility] [address] [facility] [id number] [place] [address] Jun, [facility] [place] [facility] [id number] [place] [address] Jun, [facility] [address] [facility] [id number][place] [address] May, [facility] [place] [facility] [id number] [place] [address] May, [facility] [address] [facility] [id number][place] [id number] Apr, [facility] [place] [facility] [id number] [address] Apr, [facility] [address] [facility] [id number][place] [address] Apr, [facility] [place] [facility] [address] [facility] [id number] [address] Apr, [facility] [address] [facility] [id number] [place] [id number] Feb, [facility] [place] [facility] [address] [facility] [id number] [place] [address] Feb, [facility] [address] [facility] [id number][place] [id number] Feb, [facility] [place] [facility] [address] [id number] [address] Feb, [facility] [address] [facility] [id number] [place] [id number] Jan, [facility] [address] [id number] [place] [address] Jan, [facility] [address] [facility] [id number] [place] [id number] Jan, [facility] [place] [facility] [address] [id number] [address] Jan, [facility] [address] [facility] [id number] [place] [address] Dec, [facility] [place] [facility] [address] [id number] [place] [address] Dec, [facility] [id number] [address] Oct, [facility] [place] [facility] [address] [facility] [id number] [place] [address] Oct, [facility] [place] [facility] [address] [facility] [id number] [place] [address] Oct, [facility] [place] [facility] [address] [facility] [id number] [address] Oct, [facility] [place] [facility] [address] [facility] [id number] [address] Sep, [facility] [place] [facility] [address] [id number] [place] [address] May, [facility] [place] [facility] [address] [facility] [id number] [place] [address] May, [facility] [place] [facility] [address] [facility] [id number] [address] May, [facility] [place] [facility] [address] [facility] [id number] [address] Apr, [facility] [place] [facility] [address] [id number] [place] [address] Apr, 2012 [facility] [place] [facility] [address] [id number] [place] [address] Apr, 2012 [facility] [place] [facility] [address] [id number] [place] [address] Apr, 2012 [facility] [place] [facility] [address] [id number] [place] [address] Apr, 2012 [facility] [place] [facility] [address] [id number] [place] [address] Apr, 2012 [facility] [place] [facility] [address] [id number] [place] [address] Apr, [facility] [place] [facility] [address] [facility] [id number] [place] [address] Jan, [facility] [place] [facility] [address] [id number] [place] [address] Jan, [facility] [place] [facility] [address] [facility] [id number] [place] [address] Aug, [facility] [place] [facility] [address] [facility] [id number] [place] [address] July, [facility] [place] [facility] [address] [facility] [id number] [place] [address] May, [facility] [place] [facility] [address] [facility] [id number] [place] [address] May, [facility] [place] [facility] [address] [id number] [place] [address] Feb, [facility] [place] [facility] [address] [id number] [place] [address] Dec, [facility] [place] [facility] [address] [facility] [id number] [place] [address] Feb, [facility] [place] [facility] [address] [id number] [place] [address] Feb, [facility] [id number] [address] Feb, [facility] [id number] [address] Feb, [facility] [id number] [address] Jan, [facility] [id number] [address] Jan, [facility] [id number] [address] Jan, [facility] [id number] [address] Jan, IMMUNIZATIONS No Known Immunizations SOCIAL HISTORY Never Assessed REASON FOR VISIT EMR-[facility] PLAN OF CARE VITAL SIGNS MEDICATIONS Unknown [...]
--- OUTSIDE RECORDS SUMMARY | 2018-09-20 18:42 | XMS REPORT ---
Author Author Migration, Doctor Organization [facility] Address Unknown Phone Unavailable Care Team Providers Care Slots Manager Name Role Phone Migration, Doctor Unavailable Unavailable PROBLEMS Type Condition ICD9-CM Code FAY23-YB Code Onset Dates Condition Status SNOMED Code Problem Diabetes with unspecified complication, type II or unspecified type, uncontrolled 250.92 Active 27122506588463 Problem Type 2 diabetes mellitus with hyperglycemia E11.65 Active [id number] Problem Cervicalgia 723.1 Active 37608444 Problem Chronic rhinitis 472.0 Active 12364225 Problem Diabetes mellitus without mention of complication, type II or unspecified type, uncontrolled 250.02 Active 054637319 Problem Diabetes mellitus without mention of complication, type II or unspecified type, not stated as uncontrolled 250.00 Active [id number] ALLERGIES No Information ENCOUNTERS Encounter Location Date Diagnosis [facility] [id number] [place] [address] July, Type 2 diabetes mellitus with hyperglycemia E11.65 [facility] [id number] [place] [address] Apr, Type 2 diabetes mellitus with hyperglycemia E11.65 [facility] [id number] [address] Feb, [facility] [id number] [place] [address] Jan, [facility] [id number] [place] [address] Dec, [facility] [id number] [place] [address] Nov, [facility] [id number] [place] [address] Nov, [facility] [id number] [place] [address] Nov, [facility] [id number], [place] [address] Nov, [facility] [address], [place] [address] Oct, [facility] [address], [place] [address] Oct, [facility] [id number], [place] [address] Oct, [facility] [address], [place] [address] Oct, Radiculopathy of leg 724.4 and Chronic rhinitis 472.0 [facility] [address], [place] [address] Oct, [facility] [address], [place] [address] Oct, Dehydration 276.51 [facility] [address], [place] [address] Oct, [facility] [address], [place] [address] Sep, [facility] [address], [place] [address] Sep, [facility] [address], [place] [address] Sep, Labyrinthitis 386.30 [facility] [address], [place] [address] Sep, [facility] [address], [place] [address] Sep, [facility] [id number] [address] Sep, [facility] [id number] [place] [address] Sep, [facility] [address], [place] [address] Sep, [facility] [id number] [place] [address] Aug, Diabetes mellitus without mention of complication, type II or unspecified type, uncontrolled 250.02 and Lumbar disc disease 722.93 [facility] [id number] [place] [address] July, [facility] [id number] [place] [address] Jun, [facility] [address], [place] [address] Jun, [facility] [address], [place] [address] May, [facility] [address], [place] [address] May, [facility] [id number] [place] [address] May, [facility] [address], [place] [address] May, [facility] [id number] [place] [address] May, [facility] [id number], [place] [address] May, [facility] [address], [place] [address] May, [facility] [address], [place] [address] May, [facility] [id number], [place] [address] Apr, [facility] [address] [id number] [place] [address] Apr, 2014 [facility] [place] [facility] [address] [id number] [place] [address] Apr, 2014 [facility] [place] [facility] [address] [id number] [place] [address] Apr, 2014 [facility] [place] [facility] [address] [id number] [place] [address] Apr, [facility] [place] [facility] [address] [id number] [place] [address] Apr, [facility] [place] [facility] [address] [id number] [place] [address] Mar, [facility] [place] [facility] [address] [id number] [place] [address] Mar, [facility] [address] [id number] [place] [address] Mar, [facility] [address] [id number] [place] [address] Mar, [facility] [address] [facility] [id number] [place] [address] Feb, [facility] [address] [facility] [id number], [place] [address] Feb, [facility] [address] [id number] [address] Feb, [facility] [place] [facility] [address] [id number] [place] [address] Feb, [facility] [place] [facility] [address] [facility] [id number] [place] [address] Feb, [facility] [place] [facility] [address] [id number], [place] [address] Feb, [facility] [place] [facility] [address] [id number], [place] [address] Feb, [facility] [place] [facility] [address] [id number] [place] [address] Feb, [facility] [place] [facility] [address] [id number], [place] [address] Feb, [facility] [place] [facility] [address] [facility] [id number], [place] [address] Feb, [facility] [place] [facility] [address] [id number], [place] [address] Feb, [facility] [place] [facility] [address] [id number] [place] [address] Feb, [facility] [place] [facility] [address] [id number], [place] [address] Jan, [facility] [place] [facility] [address] [id number], [place] [address] Jan, [facility] [place] [facility] [address] [id number], [place] [address] Jan, [facility] [place] [facility] [address] [id number], [place] [address] Jan, [facility] [place] [facility] [address] [facility] [id number], [place] [address] Jan, [facility] [place] [facility] [address] [id number], [place] [address] Jan, [facility] [place] [facility] [address] [id number], [place] [address] Nov, [facility] [address] [id number] [address] Nov, [facility] [place] [facility] [address] [id number], [place] [address] Oct, [facility] [place] [facility] [address] [id number], [place] [address] Oct, [facility] [address] [id number] [address] Aug, [facility] [place] [facility] [address] [facility] [id number] [place] [address] Aug, [facility] [address] [facility] [id number] [place] [id number] July, [facility] [place] [facility] [address] [facility] [id number] [place] [address] July, [facility] [address] [facility] [id number][place] [id number] July, [facility] [place] [facility] [address] [facility] [id number] [place] [address] July, [facility] [place] [facility] [address] [facility] [id number] [place] [address] Jun, [facility] [place] [facility] [id number] [place] [place] [address] Jun, [facility] [address] [facility] [id number] [address] May, [facility] [place] [facility] [id number] [place] [address] May, [facility] [address] [facility] [id number] [id number] Apr, [facility] [place] [facility] [id number], [place] [address] Apr, [facility] [address] [facility] [id number][place] [address] Apr, [facility] [place] [facility] [address] [facility] [id number], [place] [address] Apr, [facility] [address] [facility] [id number] [place] [address] Feb, [facility] [place] [facility] [address] [facility] [id number] [place] [address] Feb, [facility] [address] [facility] [id number][place] [address] Feb, [facility] [place] [facility] [address] [id number], [place] [address] Feb, [facility] [address] [facility] [id number] [place] [id number] Jan, [facility] [address] [id number], [place] [address] Jan, [facility] [address] [facility] [id number] [place] [id number] Jan, [facility] [place] [facility] [address] [id number], [place] [address] Jan, [facility] [address] [facility] [id number] [place] [address] Dec, [facility] [place] [facility] [address] [id number] [place] [address] Dec, [facility] [id number], [place] [address] Oct, [facility] [place] [facility] [address] [facility] [id number], [place] [address] Oct, [facility] [place] [facility] [address] [facility] [id number] [place] [address] Oct, [facility] [place] [facility] [address] [facility] [id number], [place] [address] Oct, [facility] [place] [facility] [address] [facility] [id number], [place] [address] Sep, [facility] [place] [facility] [address] [id number], [place] [address] May, [facility] [place] [facility] [address] [facility] [id number], [place] [address] May, [facility] [place] [facility] [address] [facility] [id number], [place] [address] May, [facility] [place] [facility] [address] [facility] [id number], [place] [address] Apr, [facility] [place] [facility] [address] [id number] [place] [address] Apr, 2012 [facility] [place] [facility] [address] [id number] [place] [address] Apr, 2012 [facility] [place] [facility] [address] [id number] [place] [address] Apr, 2012 [facility] [place] [facility] [address] [id number] [place] [address] Apr, 2012 [facility] [place] [facility] [address] [id number] [place] [address] Apr, 2012 [facility] [place] [facility] [address] [id number] [place] [address] Apr, [facility] [place] [facility] [address] [facility] [id number] [place] [address] Jan, [facility] [place] [facility] [address] [id number] [place] [address] Jan, [facility] [place] [facility] [address] [facility] [id number] [place] [address] Aug, [facility] [place] [facility] [address] [facility] [id number] [place] [address] July, [facility] [place] [facility] [address] [facility] [id number], [place] [address] May, [facility] [place] [facility] [address] [facility] [id number], [place] [address] May, [facility] [place] [facility] [address] [id number] [place] [address] Feb, [facility] [place] [facility] [address] [id number] [place] [address] Dec, [facility] [place] [facility] [address] [facility] [id number], [place] [address] Feb, [facility] [place] [facility] [address] [id number], [place] [address] Feb, [facility] [id number], [place] [address] Feb, [facility] [id number], [place] [address] Feb, [facility] [id number], [place] [address] Jan, [facility] [id number], [place] [address] Jan, [facility] [id number], [place] [address] Jan, [facility] [id number], [place] [address] Jan, IMMUNIZATIONS No Known Immunizations SOCIAL HISTORY Never Assessed REASON FOR VISIT EMR-[facility] [place] PLAN OF CARE VITAL [...] placed, hardware then removed Hospitalization History [facility] [place] 08/07
--- NOTE | 2018-09-20 18:45 | NUR ---
dr wanted me to clean wound then do wound cx. i cleaned wound with soap and h20 then did cx getting deep into the middle of wound which was down to white area then i sent it to lab
--- NOTE | 2018-09-20 19:09 | NUR ---
had tech draw labs peripherely and i sent labs to lab. and deandra in room dr said she will measure wound and tech will apply antibiotic ointment and wants merced and marni for dressing and tech will do that as well. i went to get merced and marni.
[2018-09-20 19:12] LABS: BASOPHILS # (AUTO) 0.1 10^3/uL (0.0-0.1); BASOPHILS % (AUTO) 1 % (0-10); EOSINOPHILS # (AUTO) 0.8 10^3/uL (0.0-0.3); EOSINOPHILS % (AUTO) 10 % (0-10); HEMATOCRIT 34 % (40-54); HEMOGLOBIN 10.6 G/DL (13.3-17.7); LYMPHOCYTES # (AUTO) 2.1 X 10^3 (1.0-4.0); LYMPHOCYTES % (AUTO) 27 % (12-44); MEAN CORPUSCULAR HEMOGLOBIN 29 PG (25-34); MEAN CORPUSCULAR HGB CONC 31 G/DL (32-36); MEAN CORPUSCULAR VOLUME 93 FL (80-99); MONOCYTES % (AUTO) 13 % (0-12); NEUTROPHILS # (AUTO) 3.9 X 10^3 (1.8-7.8); NEUTROPHILS % (AUTO) 50 % (42-75); PLATELET COUNT 216 10^3/uL (130-400); RED CELL DISTRIBUTION WIDTH 14.7 % (10.0-14.5); WHITE BLOOD COUNT 7.7 10^3/uL (4.3-11.0)
[2018-09-20] MEDS ORDERED: TRIM/SULFAMETH 160/800 (SEPTRA DS) TAB PO ONE (19:30)
--- NOTE | 2018-09-20 19:31 | NUR ---
pt said dr said he can get dressed. bp machine is 165/88 ausc hr 88 reg ausc resp 16 normal recheck temp 98.1 oral p ox r/a is 96.
--- NOTE | 2018-09-20 19:33 | ED Integumentary General ---
General Chief Complaint: Skin/Wound Problems Stated Complaint: BED SORE Nursing Triage Note: pt has wound buttock area Allergies and Home Medications Allergies Coded Allergies: No Known Drug Allergies (Unverified , 12/09/14) Home Medications Albuterol Sulfate 18 Gm Hfa.aer.ad, 1-2 PUFF IH QID, (Reported) Amitriptyline HCl 50 Mg Tablet, 50 MG PO HS, (Reported) Budesonide/Formoterol Fumarate 10.2 Gm Hfa.aer.ad, 2 PUFF IH BID, (Reported) Cholecalciferol (Vitamin D3) 1,000 Unit Capsule, 1,000 UNIT PO DAILY, (Reported) Cyclobenzaprine HCl 10 Mg Tablet, 10 MG PO HS, (Reported) Diazepam 2 Mg Tablet, 2 MG PO Q8H PRN for ANXIETY Prescribed by: ANGÉLICA DAVIS on 08/09/18 08 Diclofenac Sodium 75 Mg Tablet.dr, 75 MG PO BID, (Reported) Fluticasone Propionate 16 Gm [place].susp, 2 SPRAYS NSEACH DAILY, (Reported) Furosemide 20 Mg Tablet, 20 MG PO DAILY PRN for SWELLING Prescribed by: ANGÉLICA DAVIS on 08/09/18 08 Gabapentin 600 Mg Tablet, 600 MG PO TID, (Reported) Glimepiride 4 Mg Tablet, 4 MG PO BID, (Reported) Insulin Aspart 100 Unit/1 Ml Susp, 20 UNIT SC AC Prescribed by: ANGÉLICA DAVIS on 08/09/18 08 Insulin Determir 1,000 Units/10 Ml Soln, 30 UNITS SQ BID, (Reported) Meclizine HCl 25 Mg Tablet, 12.5 MG PO QID, (Reported) TAKES 1/2 OF A (25 MG) TABLET Metoprolol Succinate 50 Mg Tab.er.24h, 50 MG PO DAILY Prescribed by: BRE JETER on 08/08/18 1008 Oxycodone HCl/Acetaminophen 1 Each Tablet, 1 TAB PO TID PRN for PAIN-MODERATE Prescribed by: ANGÉLICA DAVIS on 08/09/18 08 Pantoprazole Sodium 40 Mg Tablet.dr, 40 MG PO DAILY@0700 Prescribed by: ANGÉLICA DAVIS on 08/09/18 0810 Prednisone 10 Mg Tab.ds.pk, 10 MG PO DAILY Take 1 pill daily for 2 days then 1/2 pill daily for 4 days then stop Prescribed by: ANGÉLICA DAVIS on 08/09/18 0814 Solifenacin Succinate 5 Mg Tablet, 5 MG PO DAILY, (Reported) Past Kwkjuuv-Agdxwv-Haygjq Hx Patient Social History Alcohol Use: Denies Use Recreational Drug Use: No Smoking Status: Never a Smoker Type Used: Cigarettes, Smokeless Tobacco Former Smoker, Quit: Jan 26, 2015 Recent Foreign Travel: No Contact w/Someone Who Travel: No Recent Infectious Disease Expo: No Recent Hopitalizations: Yes Physical Abuse: No Sexual Abuse: No Immunizations Up To Date Tetanus Booster (TDap): Unknown PED Vaccines UTD: No Seasonal Allergies Seasonal Allergies: No Past Medical History Surgeries: Yes (L SHOULDER, R ANKLE, PENILE IMPLANT, ) Testicular, Vasectomy Respiratory: Yes (oxygen at HS, prn during the day) Pneumonia, COPD Currently Using CPAP: No Currently Using BIPAP: No Cardiac: Yes Hypertension Neurological: Yes Neuropathy Reproductive Disorders: Yes (ARTIFICAL TESTICLE, ) Sexually Transmitted Disease: No HIV/AIDS: No Genitourinary: Yes Renal Failure Gastrointestinal: No Musculoskeletal: Yes Arthritis, Chronic Back Pain Endocrine: Yes Diabetes, Insulin dep HEENT: No Cancer: No Did You Recieve Any Treatments: No Psychosocial: No Integumentary: No Blood Disorders: No Adverse Reaction/Blood Tranf: No Family Medical History Diabetes mellitus 19 MOTHER G8 SISTER Hypertension 19 FATHER 19 MOTHER Myocardial infarction 19 FATHER (STROKES) Heart Disease, CVA, Diabetes Physical Exam Vital Signs Vital Signs - First Documented 09/20/18 18:24 Temp 98.0 Pulse 92 Resp 16 B/P (MAP) 170/103 (125) Pulse Ox 95 O2 Delivery Room Air Capillary Refill : Less Than 3 Seconds Procedures/Interventions Date of ETT Placement: Jul 22, 2018 Time of ETT Placement: 929 Progress/Results/Core Measures Results/Orders Lab Results Laboratory Tests Test 09/20/18 19:06 Range/Units White Blood Count 7.7 4.3-11.0 10^3/uL Red Blood Count 3.65 L 4.35-5.85 10^6/uL Hemoglobin 10.6 L 13.3-17.7 G/DL Hematocrit 34 L 40-54 % Mean Corpuscular Volume 93 80-99 FL Mean Corpuscular Hemoglobin 29 25-34 PG Mean Corpuscular Hemoglobin Concent 31 L 32-36 G/DL Red Cell Distribution Width 14.7 H 10.0-14.5 % Platelet Count 216 130-400 10^3/uL Mean Platelet Volume 10.0 7.4-10.4 FL Neutrophils (%) (Auto) 50 42-75 % Lymphocytes (%) (Auto) 27 12-44 % Monocytes (%) (Auto) 13 H 0-12 % Eosinophils (%) (Auto) 10 0-10 % Basophils (%) (Auto) 1 0-10 % Neutrophils # (Auto) 3.9 1.8-7.8 X 10^3 Lymphocytes # (Auto) 2.1 1.0-4.0 X 10^3 Monocytes # (Auto) 1.0 0.0-1.0 X 10^3 Eosinophils # (Auto) 0.8 H 0.0-0.3 10^3/uL Basophils # (Auto) 0.1 0.0-0.1 10^3/uL Sodium Level 145 135-145 MMOL/L Potassium Level 3.8 3.6-5.0 MMOL/L Chloride Level 108 H 98-107 MMOL/L Carbon Dioxide Level 25 21-32 MMOL/L Anion Gap 12 5-14 MMOL/L Blood Urea Nitrogen 21 H 7-18 MG/DL Creatinine 1.24 0.60-1.30 MG/DL Estimat Glomerular Filtration Rate 59 BUN/Creatinine Ratio 17 Glucose Level 159 H 70-105 MG/DL Calcium Level 9.6 8.5-10.1 MG/DL Corrected Calcium 9.5 8.5-10.1 MG/DL Total Bilirubin 0.3 0.1-1.0 MG/DL Aspartate Amino Transf (AST/SGOT) 24 5-34 U/L Alanine Aminotransferase (ALT/SGPT) 27 0-55 U/L Alkaline Phosphatase 73 40-136 U/L Total Protein 6.8 6.4-8.2 GM/DL Albumin 4.1 3.2-4.5 GM/DL My Orders Orders - BART ALLEN DO Wound Culture (09/20/18 18:38) Cbc With Automated Diff (09/20/18 18:55) Comprehensive Metabolic Panel (09/20/18 18:55) Wound Dressing-Ed (09/20/18 18:55) Mupirocin Ointment (Bactroban Ointment (09/20/18 21:00) Sulfamethoxazole/Trimet Ds Tab (Bactrim (09/20/18 19:30) Medications Given in ED Current Medications Medications Dose Ordered Sig/Jaspal Route Start Time Stop Time Status Last Admin Dose Admin Trimethoprim/ Sulfamethoxazole 1 ea ONCE ONCE PO 09/20/18 19:30 09/20/18 19:31 DC 09/20/18 19:26 1 EA Vital Signs/I&O 09/20/18 18:24 Temp 98.0 Pulse 92 Resp 16 B/P (MAP) 170/103 (125) Pulse Ox 95 O2 Delivery Room Air Blood Pressure Mean: 125 Departure Impression Primary Impression: Decubitus ulcer of coccygeal region Disposition: HOME, SELF-CARE Condition: Stable Departure-Patient Inst. Referrals: LAUREN RODRIGUEZ MD (PCP/Family) Primary Care Physician SPENSER ROBLES MD Patient Instructions: Pressure Sores (DC), Wound Care (DC), How to Prevent Pressure Sores Add. Discharge Instructions: WALK OR STAND MUCH POSSIBLE, OR LAY ON YOUR SIDE--AVOID SITTING OR LAYING ON YOUR BACK MUCH POSSIBLE CLEAN AREA TWICE A DAY WITH ANTIBACTERIAL SOAP AND WATER, APPLY ANTIBIOTIC OINTMENT AND FRESH DRESSING TWICE A DAY CONTINUE YOUR REGULAR MEDICATIONS PRESCRIBED FOLLOW UP WITH DR. ROBLES AT WOUND CLINIC ON SUNDAY --CALL SUNDAY MORNING FOR APPOINTMENT TIME RETURN TO ER IF YOU DEVELOP FEVER OR WORSENING SYMPTOMS All discharge instructions reviewed with patient and/or family. Voiced understanding. Scripts Mupirocin (Mupirocin) 1 Gm Oin.pf.lemuel 1 GM TP BID, #22 TUBE Prov: BART ALLEN DO 09/20/18 Sulfamethoxazole/Trimethoprim (Bactrim Ds Tablet) 1 Each Tablet 1 EACH PO BID, #20 TAB Prov: BART ALLEN DO 09/20/18 BART ALLEN DO Sep 20, 2018 19:33
[2018-09-20 19:36] LABS: ALBUMIN 4.1 GM/DL (3.2-4.5); BILIRUBIN,TOTAL 0.3 MG/DL (0.1-1.0); CALCIUM 9.6 MG/DL (8.5-10.1); CREATININE SERUM 1.24 MG/DL (0.60-1.30); POTASSIUM 3.8 MMOL/L (3.6-5.0); TOTAL PROTEIN 6.8 GM/DL (6.4-8.2)
[2018-09-20] MEDS ORDERED: MUPI1OIN6 TP (19:50)
[2018-09-20] MEDS ORDERED: SULF1TAB35 PO (19:50)
[2018-09-20 20:00] VITALS: BP 165/88
--- NOTE | 2018-09-20 20:00 | NUR ---
d/c instructions to pt. told to read all papers. scripts faxed. pt left ambulatory with mom. pt knows f/u. i went over the handtyped by dr miller on the chart. pt had no iv/ xtra home care supplies given for home use including antibiotic ointment.
[2018-09-20] MEDS ORDERED: MUPIROCIN 2% OINT 22 GM (BACTROBAN) TUBE TOP SCH (21:00)
== END 2018-09-20 20:00 | disposition home or self-care (01) ==
LOC: EDUNIT# 18:05 → ER 18:06
DX: L89.159 Pressure ulcer of sacral region, unspecified stage (principal); J44.9 Chronic obstructive pulmonary disease, unspecified; I10 Essential (primary) hypertension; E11.40 Type 2 diabetes mellitus with diabetic neuropathy, unspecified; Z82.49 Family history of ischemic heart disease and other diseases of the circulatory system; Z99.81 Dependence on supplemental oxygen; Z87.01 Personal history of pneumonia (recurrent); Z79.51 Long term (current) use of inhaled steroids; Z79.4 Long term (current) use of insulin; Z87.891 Personal history of nicotine dependence
CPT/HCPCS: 36415; 80053; 85025; 87070; 87186; 87205

== ENCOUNTER → 2018-09-20 | Outpatient (CLI) | payer MEDICARE, MEDICAID ==
[~2018-09-20] MED LIST changes: -HOLD METFORMIN - RECEIVED CONTRAST 20 ML VIAL IV SCH; -IOHEXOL 350 MG/ML 100 ML (OMNIPAQUE 350) VIAL IV ONE; +MUPI1OIN6 TP; -NS 100 ML (IVPB) BAG IV ONE; +PRD20T PO; +RT-ALBUTEROL SULF 2.5 MG/3 ML PRE-MIX VIAL INH ONE; +SULF1TAB35 PO
== END ==
LOC: RT 13:19
PROVIDERS: ATTEND Nurse Practitioner Family
DX: R06.00 Dyspnea, unspecified (principal); J30.9 Allergic rhinitis, unspecified; R06.89 Other abnormalities of breathing; R05 Cough; G47.10 Hypersomnia, unspecified; Z72.0 Tobacco use
CPT/HCPCS: 94060; 94726; 94729

== ENCOUNTER 2018-09-22 11:40 | Emergency (ER) | payer MEDICARE, MEDICAID ==
[~2018-09-22] VITALS: Ht 185.4 cm; Wt 117.9 kg
[~2018-09-22 11:40] MED LIST changes: +MUPI1OIN6 TP; +SULF1TAB35 PO
--- NOTE | 2018-09-22 13:02 | ED Integumentary General ---
General Chief Complaint: Skin/Wound Problems Stated Complaint: BED SORE NOT IMPROVING Nursing Triage Note: PT AMB TO [facility] 7 WITH COMPLAINT OF WORSENING BED SORE. WAS SEEN TWO DAYS AGO IN ER AND PRESCRIBED ANTIBIOTICS. STATES SORE IS WORSENING. Source: patient, spouse Exam Limitations: no limitations History of Present Illness Date Seen by Provider: Sep 22, 2018 Time Seen by Provider: 13:01 Allergies and Home Medications Allergies Coded Allergies: No Known Drug Allergies (Unverified , 12/09/14) Home Medications Albuterol Sulfate 18 Gm Hfa.aer.ad, 1-2 PUFF IH QID, (Reported) Amitriptyline HCl 50 Mg Tablet, 50 MG PO HS, (Reported) Budesonide/Formoterol Fumarate 10.2 Gm Hfa.aer.ad, 2 PUFF IH BID, (Reported) Cholecalciferol (Vitamin D3) 1,000 Unit Capsule, 1,000 UNIT PO DAILY, (Reported) Cyclobenzaprine HCl 10 Mg Tablet, 10 MG PO HS, (Reported) Diazepam 2 Mg Tablet, 2 MG PO Q8H PRN for ANXIETY Prescribed by: ANGÉLICA DAVIS on 08/09/18 0809 Diclofenac Sodium 75 Mg Tablet.dr, 75 MG PO BID, (Reported) Fluticasone Propionate 16 Gm [place].susp, 2 SPRAYS NSEACH DAILY, (Reported) Furosemide 20 Mg Tablet, 20 MG PO DAILY PRN for SWELLING Prescribed by: ANGÉLICA DAVIS on 08/09/18 0809 Gabapentin 600 Mg Tablet, 600 MG PO TID, (Reported) Glimepiride 4 Mg Tablet, 4 MG PO BID, (Reported) Insulin Aspart 100 Unit/1 Ml Susp, 20 UNIT SC AC Prescribed by: ANGÉLICA DAVIS on 08/09/18 0810 Insulin Determir 1,000 Units/10 Ml Soln, 30 UNITS SQ BID, (Reported) Meclizine HCl 25 Mg Tablet, 12.5 MG PO QID, (Reported) TAKES 1/2 OF A (25 MG) TABLET Metoprolol Succinate 50 Mg Tab.er.24h, 50 MG PO DAILY Prescribed by: BRE JETER on 08/08/18 1008 Mupirocin 1 Gm Oin.pf.lemuel, 1 GM TP BID Prescribed by: BART ALLEN on 09/20/18 1950 Oxycodone HCl/Acetaminophen 1 Each Tablet, 1 TAB PO TID PRN for PAIN-MODERATE Prescribed by: ANGÉLICA DAVIS on 08/09/18 0809 Pantoprazole Sodium 40 Mg Tablet.dr, 40 MG PO DAILY@0700 Prescribed by: ANGÉLICA DAVIS on 08/09/18 0810 Prednisone 10 Mg Tab.ds.pk, 10 MG PO DAILY Take 1 pill daily for 2 days then 1/2 pill daily for 4 days then stop Prescribed by: ANGÉLICA DAVIS on 08/09/18 0814 Solifenacin Succinate 5 Mg Tablet, 5 MG PO DAILY, (Reported) Sulfamethoxazole/Trimethoprim 1 Each Tablet, 1 EACH PO BID Prescribed by: BART ALLEN on 09/20/18 1950 Past Fhzdfei-Wdfcys-Gcssde Hx Patient Social History Alcohol Use: Denies Use Recreational Drug Use: No Smoking Status: Former Smoker Type Used: Cigarettes, Smokeless Tobacco Former Smoker, Quit: Jan 26, 2015 Recent Foreign Travel: No Contact w/Someone Who Travel: No Recent Infectious Disease Expo: No Recent Hopitalizations: Yes Immunizations Up To Date Tetanus Booster (TDap): Unknown PED Vaccines UTD: No Seasonal Allergies Seasonal Allergies: No Past Medical History Surgeries: Yes (L SHOULDER, R ANKLE, PENILE IMPLANT, ) Testicular, Vasectomy Respiratory: Yes (oxygen at HS, prn during the day) Pneumonia, COPD Currently Using CPAP: No Currently Using BIPAP: No Cardiac: Yes Hypertension Neurological: Yes Neuropathy Reproductive Disorders: Yes (ARTIFICAL TESTICLE, ) Sexually Transmitted Disease: No HIV/AIDS: No Genitourinary: Yes Renal Failure Gastrointestinal: No Musculoskeletal: Yes Arthritis, Chronic Back Pain Endocrine: Yes Diabetes, Insulin dep HEENT: No Cancer: No Did You Recieve Any Treatments: No Psychosocial: No Integumentary: No Blood Disorders: No Adverse Reaction/Blood Tranf: No Family Medical History Diabetes mellitus 19 MOTHER G8 SISTER Hypertension 19 FATHER 19 MOTHER Myocardial infarction 19 FATHER (STROKES) Heart Disease, CVA, Diabetes Physical Exam Vital Signs Vital Signs - First Documented 09/22/18 11:58 Temp 98.0 Pulse 95 Resp 16 B/P (MAP) 137/76 (96) Pulse Ox 92 O2 Delivery Nasal Cannula O2 Flow Rate 2.00 Capillary Refill : Less Than 3 Seconds Procedures/Interventions Date of ETT Placement: Jul 22, 2018 Time of ETT Placement: 929 Progress/Results/Core Measures Results/Orders Lab Results Laboratory Tests Test 09/22/18 12:28 Range/Units Glucometer 160 H 70-110 MG/DL Vital Signs/I&O 09/22/18 11:58 Temp 98.0 Pulse 95 Resp 16 B/P (MAP) 137/76 (96) Pulse Ox 92 O2 Delivery Nasal Cannula O2 Flow Rate 2.00 Blood Pressure Mean: 96 FSBG Bedside Testing Finger Stick Blood Glucose: 160 Blood Glucose Action Taken: rn notified Departure Impression Primary Impression: Decubitus ulcer of coccyx Qualified Codes: L89.159 - Pressure ulcer of sacral region, unspecified stage Additional Impression: COPD (chronic obstructive pulmonary disease) Qualified Codes: J44.9 - Chronic obstructive pulmonary disease, unspecified Disposition: HOME, SELF-CARE Condition: Improved Departure-Patient Inst. Decision time for Depature: 13:27 Referrals: MARCI LOPEZ JOHN M MD (PCP/Family) Primary Care Physician RAMON JOYCE MD FACP [facility] SP[facility] ROBLES MD Patient Instructions: Pressure Sores (DC), Chronic Obstructive Pulmonary Disease (COPD), Including Emphysema Add. Discharge Instructions: All discharge instructions reviewed with patient and/or family. Voiced understanding. Medications as instructed. Monitor your blood sugars closely while on the prednisone. Continue usual home medications. Avoid lying or sitting on the pressure wound. Shower with antibacterial soap. Cover with gauze and tape until seen by Dr. Ventura. Follow-up with wound care as previously instructed on Sunday. Call wound care for similar morning to schedule an appointment. Follow-up with Dr. Nuno early this week. Call Sunday for an appointment time. Return to the emergency department for fever, increased pain, drainage, redness, or any other concerns. Scripts Prednisone (Prednisone) 20 Mg Tab 20 MG PO DAILY, #3 TAB 0 Refills Prov: DONNA MONTERROSO 09/22/18 DONNA MONTERROSO Sep 22, 2018 13:01
[2018-09-22] MEDS ORDERED: PRD20T PO (13:30)
[2018-09-22 13:37] VITALS: BP 137/76
== END 2018-09-22 13:38 | disposition home or self-care (01) ==
LOC: EDUNIT# 11:40 → ER 11:41
DX: L89.159 Pressure ulcer of sacral region, unspecified stage (principal); J44.9 Chronic obstructive pulmonary disease, unspecified; I10 Essential (primary) hypertension; E11.40 Type 2 diabetes mellitus with diabetic neuropathy, unspecified; Z82.49 Family history of ischemic heart disease and other diseases of the circulatory system; Z99.81 Dependence on supplemental oxygen; Z87.01 Personal history of pneumonia (recurrent); Z87.891 Personal history of nicotine dependence; Z79.51 Long term (current) use of inhaled steroids; Z79.4 Long term (current) use of insulin
CPT/HCPCS: 82962

== ENCOUNTER → 2018-09-24 | Outpatient (CLI) | payer MEDICARE, MEDICAID ==
[~2018-09-24] MED LIST changes: +CATHETER FLUSH 10 ML SYR IV PRN; +PRD20T PO; +REGADENOSON 0.4 MG/5 ML SYR (LEXISCAN) IV ONE
[2018-09-24 09:41] VITALS: BP 142/88
--- NOTE | 2018-09-24 23:39 | STRESS TEST ---
DATE OF SERVICE: 09/24/2018 RESTING AND POST REGADENOSON TECHNETIUM-99M TETROFOSMIN SPECT CT IMAGING ORDERING PHYSICIAN: ALLYN Love PRIMARY PHYSICIAN: Dr. Nuno. CLINICAL DIAGNOSIS: Chest discomfort. Baseline images were carried out after injection of 10.97 mCi technetium-99m Tetrofosmin. This was followed by 0.4 mg regadenoson and 31 mCi of technetium-99m Tetrofosmin for stress imaging. The electrocardiogram showed sinus rhythm at baseline. The electrocardiogram was suggestive of left ventricular hypertrophy with a strain pattern. The electrocardiogram did not change significantly with the regadenoson infusion. The patient tolerated the procedure well. Review of images at rest and following stress indicate diminished count uptake in the diaphragmatic wall both at rest and following regadenoson infusion. This is probably diaphragmatic attenuation. Gated images show normal global left ventricular systolic function and normal regional wall motion, including the diaphragmatic wall of the left ventricle. Left ventricular ejection fraction is calculated to be 55%. Left ventricular end diastolic volume is 104 mL. TID is absent (1). CONCLUSIONS: 1. No evidence of significant myocardial ischemia or infarction on this study. 2. Normal regional wall motion. 3. Normal global left ventricular systolic function with a calculated ejection fraction of 55%. Job ID: [id number] DocumentID: [id number] Dictated Date: 09/24/2018 19:39:31 Occupational Therapy Asst Date: 09/24/2018 23:38:14 Dictated By: RAMON JOYCE MD, MA, FACP, FACC,
== END ==
LOC: CARD 06:59
PROVIDERS: ATTEND Nurse Practitioner Family
DX: R07.89 Other chest pain (principal); I10 Essential (primary) hypertension; R06.09 Other forms of dyspnea; I44.69 Other fascicular block; E11.9 Type 2 diabetes mellitus without complications
CPT/HCPCS: 78452; 93017

== ENCOUNTER → 2018-09-25 | Outpatient (CLI) | payer MEDICARE, MEDICAID ==
[~2018-09-25] MED LIST changes: -CATHETER FLUSH 10 ML SYR IV PRN; -REGADENOSON 0.4 MG/5 ML SYR (LEXISCAN) IV ONE
== END ==
LOC: WOUNDCARE 08:37
PROVIDERS: ATTEND Surgery
DX: L89.153 Pressure ulcer of sacral region, stage 3 (principal); E11.622 Type 2 diabetes mellitus with other skin ulcer
CPT/HCPCS: 11042

== ENCOUNTER → 2018-09-30 | Outpatient (CLI) | payer MEDICARE, MEDICAID | LOC: WOUNDCARE 10:19 | PROVIDERS: ATTEND Surgery | DX: L89.153 Pressure ulcer of sacral region, stage 3 (principal); E11.622 Type 2 diabetes mellitus with other skin ulcer | CPT/HCPCS: 99212 ==

== ENCOUNTER → 2018-10-07 | Outpatient (CLI) | payer MEDICARE, MEDICAID | LOC: WOUNDCARE 11:04 | PROVIDERS: ATTEND Surgery | DX: E11.621 Type 2 diabetes mellitus with foot ulcer (principal); L97.511 Non-pressure chronic ulcer of other part of right foot limited to breakdown of skin; L89.153 Pressure ulcer of sacral region, stage 3; E11.622 Type 2 diabetes mellitus with other skin ulcer; E11.52 Type 2 diabetes mellitus with diabetic peripheral angiopathy with gangrene; I96 Gangrene, not elsewhere classified | CPT/HCPCS: 11042 ==

== ENCOUNTER → 2018-10-14 | Outpatient (CLI) | payer MEDICARE, MEDICAID | LOC: WOUNDCARE 11:06 | PROVIDERS: ATTEND Surgery | DX: E11.52 Type 2 diabetes mellitus with diabetic peripheral angiopathy with gangrene (principal); E11.621 Type 2 diabetes mellitus with foot ulcer; E11.622 Type 2 diabetes mellitus with other skin ulcer; I96 Gangrene, not elsewhere classified; L89.153 Pressure ulcer of sacral region, stage 3; L97.511 Non-pressure chronic ulcer of other part of right foot limited to breakdown of skin | CPT/HCPCS: 11042; 87070; 87205 ==

== ENCOUNTER → 2018-10-21 | Outpatient (CLI) | payer MEDICARE, MEDICAID | LOC: WOUNDCARE 13:36 | PROVIDERS: ATTEND Nurse Practitioner | DX: E11.621 Type 2 diabetes mellitus with foot ulcer (principal); E11.622 Type 2 diabetes mellitus with other skin ulcer; E11.52 Type 2 diabetes mellitus with diabetic peripheral angiopathy with gangrene; I96 Gangrene, not elsewhere classified; L97.511 Non-pressure chronic ulcer of other part of right foot limited to breakdown of skin; L89.153 Pressure ulcer of sacral region, stage 3 | CPT/HCPCS: 11042 ==

== ENCOUNTER → 2018-10-29 | Outpatient (CLI) | payer MEDICARE, MEDICAID | LOC: WOUNDCARE 10:33 | PROVIDERS: ATTEND Nurse Practitioner | DX: E11.622 Type 2 diabetes mellitus with other skin ulcer (principal); L89.153 Pressure ulcer of sacral region, stage 3; E11.52 Type 2 diabetes mellitus with diabetic peripheral angiopathy with gangrene; I96 Gangrene, not elsewhere classified | CPT/HCPCS: 11042 ==

== ENCOUNTER → 2018-11-05 | Outpatient (CLI) | payer MEDICARE, MEDICAID | LOC: WOUNDCARE 10:41 | PROVIDERS: ATTEND Nurse Practitioner | DX: E11.622 Type 2 diabetes mellitus with other skin ulcer (principal); L89.153 Pressure ulcer of sacral region, stage 3; E11.52 Type 2 diabetes mellitus with diabetic peripheral angiopathy with gangrene; I96 Gangrene, not elsewhere classified | CPT/HCPCS: 11042 ==

== ENCOUNTER → 2018-11-12 | Outpatient (CLI) | payer MEDICARE, MEDICAID | LOC: WOUNDCARE 10:48 | PROVIDERS: ATTEND Nurse Practitioner | DX: E11.622 Type 2 diabetes mellitus with other skin ulcer (principal); E11.52 Type 2 diabetes mellitus with diabetic peripheral angiopathy with gangrene; I96 Gangrene, not elsewhere classified; L89.153 Pressure ulcer of sacral region, stage 3 | CPT/HCPCS: 11042; 87070; 87075; 87205 ==

== ENCOUNTER → 2018-11-19 | Outpatient (CLI) | payer MEDICARE, MEDICAID | LOC: WOUNDCARE 10:43 | PROVIDERS: ATTEND Nurse Practitioner | DX: L89.153 Pressure ulcer of sacral region, stage 3 (principal); E11.622 Type 2 diabetes mellitus with other skin ulcer; E11.52 Type 2 diabetes mellitus with diabetic peripheral angiopathy with gangrene; I96 Gangrene, not elsewhere classified | CPT/HCPCS: 11042 ==

== ENCOUNTER → 2018-11-26 | Outpatient (CLI) | payer MEDICARE, MEDICAID | LOC: WOUNDCARE 10:33 | PROVIDERS: ATTEND Nurse Practitioner | DX: E11.622 Type 2 diabetes mellitus with other skin ulcer (principal); L89.153 Pressure ulcer of sacral region, stage 3; E11.52 Type 2 diabetes mellitus with diabetic peripheral angiopathy with gangrene; I96 Gangrene, not elsewhere classified | CPT/HCPCS: 11042 ==

== ENCOUNTER → 2018-12-03 | Outpatient (CLI) | payer MEDICARE, MEDICAID | LOC: WOUNDCARE 10:31 | PROVIDERS: ATTEND Nurse Practitioner | DX: E11.622 Type 2 diabetes mellitus with other skin ulcer (principal); L89.153 Pressure ulcer of sacral region, stage 3 | CPT/HCPCS: 99212 ==

== ENCOUNTER → 2018-12-17 | Outpatient (CLI) | payer MEDICARE, MEDICAID | LOC: WOUNDCARE 10:47 | PROVIDERS: ATTEND Nurse Practitioner | DX: E11.622 Type 2 diabetes mellitus with other skin ulcer (principal); L89.153 Pressure ulcer of sacral region, stage 3; E11.52 Type 2 diabetes mellitus with diabetic peripheral angiopathy with gangrene | CPT/HCPCS: 99213 ==

== ENCOUNTER → 2018-12-24 | Outpatient (CLI) | payer MEDICARE, MEDICAID | LOC: WOUNDCARE 10:48 | PROVIDERS: ATTEND Nurse Practitioner | DX: E11.622 Type 2 diabetes mellitus with other skin ulcer (principal); L89.153 Pressure ulcer of sacral region, stage 3 | CPT/HCPCS: 99212 ==

== ENCOUNTER → 2018-12-31 | Outpatient (CLI) | payer MEDICARE, MEDICAID | LOC: WOUNDCARE 11:01 | PROVIDERS: ATTEND Nurse Practitioner | DX: E11.622 Type 2 diabetes mellitus with other skin ulcer (principal); L89.153 Pressure ulcer of sacral region, stage 3 | CPT/HCPCS: 99212 ==

== ENCOUNTER 2019-01-07 13:10 | Outpatient (CLI) | payer MEDICARE, MEDICAID ==
[~2019-01-07] VITALS: Ht 185.4 cm; Wt 125.4 kg
[~2019-01-07 13:10] MED LIST changes: +FERR325T24 PO; +MORP60TA28 PO
== END 2019-01-07 13:34 | disposition home or self-care (01) ==
LOC: PREOP 13:10
PROVIDERS: ATTEND Pediatrics
DX: Z01.818 Encounter for other preprocedural examination (principal)

== ENCOUNTER 2019-01-09 06:45 | Day surgery (SDC) | payer MEDICARE, MEDICAID ==
[~2019-01-09] VITALS: Ht 185.5 cm; Wt 127.0 kg
[~2019-01-09 06:45] MED LIST changes: +GLIM4TAB3 PO; -METO-370 PO; +METO50TA7 PO; -MORP60TA52 PO; +MORP60TA69 PO
[2019-01-09] MEDS ORDERED: NS IV 500 ML 500 ML IV PRN (07:21)
[2019-01-09] MEDS ORDERED: fentaNYL INJECTION 100 MCG/2 ML AMP IVP ONE (07:30)
[2019-01-09] MEDS ORDERED: MIDAZOLAM 5 MG/5 ML (VERSED) VIAL IV PRN (07:30)
[2019-01-09] MEDS ORDERED: HURRICAINE EXT TUBE (BENZOCAINE) XX PRN (07:30)
[2019-01-09] MEDS ORDERED: NS IV 500 ML 500 ML ONE (07:31)
[2019-01-09 07:35] VITALS: BP 163/108
--- NOTE | 2019-01-09 08:06 | Progress Note-Pre Operative ---
Pre-Operative Progress Note H&P Reviewed The H&P was reviewed, patient examined and no changes noted. Date Seen by Provider: Jan 09, 2019 Time Seen by Provider: 08:05 Date H&P Reviewed: Jan 09, 2019 Time H&P Reviewed: 08:05 Pre-Operative Diagnosis: dysphagia LAUREN RODRIGUEZ MD Jan 09, 2019 08:06
[2019-01-09] MEDS ORDERED: MIDAZOLAM 5 MG/5 ML (VERSED) VIAL ONE (08:07)
[2019-01-09] MEDS ORDERED: fentaNYL INJECTION 100 MCG/2 ML AMP ONE (08:07)
[2019-01-09 08:10] VITALS: BP 195/101
[2019-01-09 08:15] VITALS: BP 178/88
--- NOTE | 2019-01-09 08:18 | Endoscopy Procedure Report ---
EGD Procedure Performed: EGD Pre-Operative Diagnosis: dysphagia Post-Operative Diagnosis: gerd Replanting Machine Operator: None. Procedure Details: Informed consent was obtained for the procedure, including conscious sedation. Risks of pancreatitis, infection, perforation, hemorrhage, adverse drug reaction, and aspiration were discussed. Michael Ling, a 63 yr old male, was brought to the surgery area, sedated with 4mg OF Versed and 100 ug of fentanyl. The patient was placed in the left lateral decubitus position. He was monitored continuously with ECG tracing, pulse oximetry, blood pressure monitoring and direct observation. The olympus gastroscope was inserted into the mouth and advanced under direct vision to second portion of the duodenum. A careful inspection was made as the gastroscope was withdrawn, including a retroflexed view of the proximal stomach; findings and interventions are described below. Appropriate photodocumentation. Findings: moderate vocal cord inflammation and mild antral gastritis Estimated Blood Loss: 0 mL Specimens: antrla biopsy Complications: None; patient tolerated the procedure well. LAUREN RODRIGUEZ MD Jan 09, 2019 08:18
[2019-01-09 08:20] VITALS: BP 171/80
[2019-01-09 08:25] VITALS: BP 171/80
[2019-01-09 08:56] VITALS: BP 172/79
== END 2019-01-09 09:00 ==
LOC: ENDO 06:45
PROVIDERS: ATTEND Pediatrics
DX: K29.50 Unspecified chronic gastritis without bleeding (principal); R13.10 Dysphagia, unspecified; E66.9 Obesity, unspecified; Z68.36 Body mass index [BMI] 36.0-36.9, adult; Z87.891 Personal history of nicotine dependence; Z79.899 Other long term (current) drug therapy
CPT/HCPCS: 88305

== ENCOUNTER → 2019-05-07 | Outpatient (CLI) | payer MEDICARE, MEDICAID ==
[2019-05-07 09:21] LABS: CREATININE SERUM 1.56 MG/DL (0.60-1.30)
--- NOTE | 2019-05-07 13:06 | Diagnostic Imaging Report ---
EXAMINATION: CT Chest without contrast. TECHNIQUE: Multiple contiguous axial images were obtained through the chest without the use of intravenous contrast. All CT scans use one or more of the following dose optimizing techniques: automated exposure control, MA and/or KvP adjustment based on a patient size and exam type, or iterative reconstruction. HISTORY: COPD COMPARISON: 09/17/2018. FINDINGS: There is no edema or pneumonia. No pleural effusion. No pneumothorax. No suspicious nodules. Previously noted abnormality in the right apex is resolved. Heart size is normal. No pericardial effusion. Aorta is normal in caliber. There is no axillary or supraclavicular lymphadenopathy. There is no mediastinal lymphadenopathy. Liver is steatotic. There is a stable small adenoma in the right adrenal gland. There is a stable 2 cm myelolipoma in the left adrenal gland. There are no suspicious osseus lesions. IMPRESSION: 1. Resolution of previously noted abnormality in the right apex, no suspicious nodules. 2. Liver is steatotic. 3. Stable right adrenal adenoma and left adrenal myelolipoma. Dictated by: Dictated on workstation # [id number]
== END ==
LOC: RAD 08:34
PROVIDERS: ATTEND Nurse Practitioner Family
DX: J44.9 Chronic obstructive pulmonary disease, unspecified (principal); Z72.0 Tobacco use; G47.33 Obstructive sleep apnea (adult) (pediatric); K76.0 Fatty (change of) liver, not elsewhere classified; D35.01 Benign neoplasm of right adrenal gland; D17.5 Benign lipomatous neoplasm of intra-abdominal organs
CPT/HCPCS: 36415; 71250; 82565; 84520

== ENCOUNTER 2019-06-05 13:00 | Outpatient (RCR) | payer MEDICAID, MEDICARE ==
[2019-05-07 09:32] VITALS: BP 140/60
[2019-05-20 09:05] VITALS: BP 150/90
[2019-05-20 10:23] VITALS: BP 160/81
[2019-05-22 09:05] VITALS: BP 170/50
[2019-05-22 10:10] VITALS: BP 138/80
[2019-05-27 09:15] VITALS: BP 145/60
[2019-05-27 10:18] VITALS: BP 138/70
[2019-05-29 08:45] VITALS: BP 120/70
[2019-05-29 10:15] VITALS: BP 150/80
[2019-06-03 11:50] VITALS: BP 150/60
[2019-06-03 13:48] VITALS: BP 130/80
[~2019-06-05] VITALS: Ht 185.4 cm; Wt 129.9 kg
[2019-06-05 12:00] VITALS: BP 150/70
[~2019-06-05 13:00] MED LIST changes: -GLIM4TAB3 PO; +GLIM4TAB5 PO; -MECL-106 PO; +MECL-149 PO
[2019-06-05 13:35] VITALS: BP 140/73
[2019-06-10 12:30] VITALS: BP 150/60
[2019-06-10 13:26] VITALS: BP 139/60
[2019-06-12 12:25] VITALS: BP 140/76
[2019-06-12 12:55] VITALS: BP 150/60
== END 2019-08-05 | disposition home or self-care (01) ==
LOC: PULM 13:00
PROVIDERS: ATTEND Nurse Practitioner Family
DX: J44.9 Chronic obstructive pulmonary disease, unspecified (principal)
CPT/HCPCS: 99211

== ENCOUNTER → 2020-02-12 | Outpatient (CLI) | payer MEDICAID ==
[~2020-02-12] MED LIST changes: +AMLO-250 PO; -AMLO5TAB9 PO; -PANT40TA3 PO; +PANT40TA52 PO
== END ==
LOC: LABNPT 08:50
PROVIDERS: ATTEND Internal Medicine Critical Care Medicine
DX: Z01.812 Encounter for preprocedural laboratory examination (principal); Z20.828 Contact with and (suspected) exposure to other viral communicable diseases
CPT/HCPCS: 87635

== ENCOUNTER 2020-02-17 18:48 | Outpatient (CLI) | payer MEDICARE, MEDICAID | END 2020-02-18 06:55 | disposition home or self-care (01) | LOC: SLEEP 18:48 | PROVIDERS: ATTEND Nurse Practitioner Family | DX: G47.10 Hypersomnia, unspecified (principal); G47.33 Obstructive sleep apnea (adult) (pediatric); J30.9 Allergic rhinitis, unspecified | CPT/HCPCS: 95811 ==

== ENCOUNTER 2020-06-01 22:05 | Emergency (ER) | payer MEDICARE, MEDICAID ==
[~2020-06-01] VITALS: Ht 185.4 cm; Wt 130.2 kg
[~2020-06-01 22:05] MED LIST changes: -LISI-552 PO; +LISI10TA25 PO; +LISI20TA26 PO; -OXYC-471 PO; +OXYC1TAB11 PO
--- NOTE | 2020-06-02 00:48 | ED General ---
General Chief Complaint: Glucose Problems Stated Complaint: BLOOD SUGAR KEEPS DROPPING Nursing Triage Note: PATIENT C/O HAVIVING LOW BLOOD GLUCOSE AT HOME. STATES BLOOD SUGAR WAS 63 BEFORE HE ATE AND THEN 286 AFTER HE AND DINNER, BUT HIS S.O. TOLD HIM HE SHOULD COME IN BECAUSE IT KEEPS DROPPING. A&OX4 CALL LIGHT IN REACH. Nursing Sepsis Screen: No Definite Risk Source of Information: Patient Exam Limitations: No Limitations History of Present Illness Date Seen by Provider: Jun 02, 2020 Time Seen by Provider: 00:20 Initial Comments Patient is a 64-year-old male who presents to the emergency room with a chief complaint of having low blood sugars at home. Patient states that he is a diabetic on insulin. He states he took his blood sugar this this morning and it was 60. He ate and it increased. Patient states later on in the day he went to take a nap and when he got up it was at 64. This is apparently fairly low for him. His sent him to the emergency room because they were concerned about his blood sugars going up and down so drastically. Patient states "that is normal for me" and has no complaints. He denies any recent illnesses such as fevers, chills, shortness of breath or cough. No nausea, vomiting or diarrhea. No urinary complaints. No concerning rashes. States that he feels just fine and is eager to be discharged. Blood sugar at presentation this evening was 227 and at 11 PM was 324. All other review of systems reviewed and negative except as stated. Timing/Duration: 1 Day Allergies and Home Medications Allergies Coded Allergies: No Known Drug Allergies (Unverified , 01/07/19) Home Medications Albuterol Sulfate 18 Gm Hfa.aer.ad, 1-2 PUFF IH QID, (Reported) Amitriptyline HCl 50 Mg Tablet, 50 MG PO HS, (Reported) Budesonide/Formoterol Fumarate 10.2 Gm Hfa.aer.ad, 2 PUFF IH BID, (Reported) Cholecalciferol (Vitamin D3) 1,000 Unit Capsule, 1,000 UNIT PO DAILY, (Reported) Cyclobenzaprine HCl 10 Mg Tablet, 10 MG PO HS, (Reported) Diazepam 2 Mg Tablet, 2 MG PO Q8H PRN for ANXIETY Prescribed by: ANGÉLICA DAVIS on 08/09/18 0809 Diclofenac Sodium 75 Mg Tablet.dr, 75 MG PO BID, (Reported) Ferrous Sulfate 325 Mg Tablet, 325 MG PO DAILY, (Reported) Furosemide 20 Mg Tablet, 20 MG PO DAILY PRN for SWELLING Prescribed by: ANGÉLICA DAVIS on 08/09/18 0809 Gabapentin 600 Mg Tablet, 600 MG PO TID, (Reported) Glimepiride 4 Mg Tablet, 4 MG PO BID, (Reported) Insulin Aspart 100 Unit/1 Ml Susp, 20 UNIT SC AC Prescribed by: ANGÉLICA DAVIS on 08/09/18 0810 Insulin Determir 1,000 Units/10 Ml Soln, 30 UNITS SQ BID, (Reported) Meclizine HCl 25 Mg Tablet, 12.5 MG PO QID, (Reported) TAKES 1/2 OF A (25 MG) TABLET Metoprolol Succinate 50 Mg Tab.er.24h, 50 MG PO DAILY Prescribed by: BRE JTEER on 08/08/18 1008 Morphine Sulfate 60 Mg Tablet.er, 60 MG PO BID, (Reported) Oxycodone HCl/Acetaminophen 1 Each Tablet, 1 TAB PO TID PRN for PAIN-MODERATE Prescribed by: ANGÉLICA DAVIS on 08/09/18 0809 Solifenacin Succinate 5 Mg Tablet, 5 MG PO DAILY, (Reported) Patient Home Medication List Home Medication List Reviewed: Yes Review of Systems Review of Systems Constitutional: see HPI EENTM: no symptoms reported Respiratory: no symptoms reported Cardiovascular: no symptoms reported Gastrointestinal: no symptoms reported Genitourinary: no symptoms reported Musculoskeletal: no symptoms reported Skin: no symptoms reported All Other Systems Reviewed Negative Unless Noted: Yes Past Kiroqna-Lgzgma-Vexigp Hx Patient Social History Alcohol Use: Denies Use Type Used: Cigarettes, Smokeless Tobacco Former Smoker, Quit: May 07, 2009 2nd Hand Smoke Exposure: Yes Recent Infectious Disease Expo: No Recent Hopitalizations: Yes Immunizations Up To Date Tetanus Booster (TDap): Unknown PED Vaccines UTD: No Date of Pneumonia Vaccine: Oct 28, 2018 Seasonal Allergies Seasonal Allergies: No Past Medical History Surgeries: Yes (L SHOULDER, R ANKLE, PENILE IMPLANT, ARTIFICIAL TESTICLE) Orthopedic, Penile Implant, Testicular, Vasectomy Respiratory: Yes Pneumonia, Sleep Apnea, COPD Currently Using CPAP: Yes Currently Using BIPAP: No Cardiac: Yes Hypertension Neurological: Yes Neuropathy Reproductive Disorders: Yes (ARTIFICAL TESTICLE, ) Sexually Transmitted Disease: No HIV/AIDS: No Genitourinary: Yes Renal Failure Gastrointestinal: No Musculoskeletal: Yes Arthritis, Back Injury, Chronic Back Pain Endocrine: Yes (MORBID OBESITY) Diabetes, Insulin dep HEENT: No (GLASSES) Loss of Vision: Denies Hearing Impairment: Denies Cancer: No Did You Recieve Any Treatments: No Psychosocial: Yes Anxiety Integumentary: No Blood Disorders: Yes (ANEMIA) Adverse Reaction/Blood Tranf: No (N/A) Family Medical History Diabetes mellitus 19 MOTHER G8 SISTER Hypertension 19 FATHER 19 MOTHER Myocardial infarction 19 FATHER (STROKES) Heart Disease, CVA, Diabetes Physical Exam Vital Signs Vital Signs - First Documented 06/01/20 22:23 Temp 35.9 Pulse 93 Resp 20 B/P (MAP) 143/79 (100) Pulse Ox 90 O2 Delivery Room Air Capillary Refill : Less Than 3 Seconds Height, Weight, BMI Height: 6'1.00" Weight: 286lbs. 6.0oz. 131.770150in; 37.00 BMI Method:Stated General Appearance: No Apparent Distress, WD/WN Eyes: Bilateral Eye Normal Inspection Neck: Normal Inspection Respiratory: Lungs Clear, Normal Breath Sounds, No Accessory Muscle Use, No Respiratory Distress Cardiovascular: Regular Rate, Rhythm Extremity: Normal Inspection, Normal Range of Motion, Non Tender, No Calf Tenderness Neurologic/Psychiatric: Alert, Oriented x3, No Motor/Sensory Deficits, Normal Mood/Affect Skin: Normal Color, Warm/Dry, Other (Multiple superficial abrasions noted to the bilateral upper extremities, patient states these are from his dogs at home) Procedures/Interventions Date of ETT Placement: Jul 22, 2018 Time of ETT Placement: 929 Progress/Results/Core Measures Suspected Sepsis Recent Fever Within 48 Hours: No Infection Criteria Present: None New/Unexplained Altered Menta: No Sepsis Screen: No Definite Risk SIRS Temperature: Pulse: 93 Respiratory Rate: 20 Blood Pressure 143 /79 Mean: 100 Results/Orders Lab Results Laboratory Tests Test 06/01/20 22:29 06/01/20 23:29 Range/Units Glucometer 227 H 324 H 70-110 MG/DL Vital Signs/I&O 06/01/20 22:23 Temp 35.9 Pulse 93 Resp 20 B/P (MAP) 143/79 (100) Pulse Ox 90 O2 Delivery Room Air Capillary Refill : Less Than 3 Seconds Blood Pressure Mean: 100 Point of Care Testing Finger Stick Blood Glucose: 323 Progress Note : Time: 00:46 Progress Note Patient seen and evaluated for blood sugars that have been up and down for the last 24 hours. Patient is completely asymptomatic. His blood sugar on arrival this evening was 227. At 11 PM it was 324. Patient is comfortable with going home. He has insulin that he uses at home. He has no infectious complaints. No concerns at this time. Patient will be sent home to continue his insulin regimen as previously dictated by his primary care doctor. He is comfortable with this plan of care all questions are sought and answered. Patient is stable for discharge. Departure Impression Primary Impression: Well adult exam Additional Impression: Type 2 diabetes mellitus Qualified Codes: E11.9 - Type 2 diabetes mellitus without complications; Z79.4 - senior living (current) use of insulin Disposition: HOME, SELF-CARE Condition: Stable Departure-Patient Inst. Decision time for Depature: 00:48 Referrals: LAUREN RODRIGUEZ MD (PCP/Family) Primary Care Physician Patient Instructions: Diabetes in Older Adults Add. Discharge Instructions: Continue to check your blood sugars at least 2-3 times daily. Drink plenty of fluids to stay well-hydrated. Follow-up with your primary care doctor tomorrow. Return to the emergency room for any new emergent concerning complaints. ELIUD ALEMAN MD Jun 02, 2020 00:48
[2020-06-02 01:04] VITALS: BP 144/74
== END 2020-06-02 01:04 | disposition home or self-care (01) ==
LOC: EDUNIT# 22:05 → ER 22:06
DX: S40.811A Abrasion of right upper arm, initial encounter (principal); S40.812A Abrasion of left upper arm, initial encounter; E11.9 Type 2 diabetes mellitus without complications; E66.01 Morbid (severe) obesity due to excess calories; I10 Essential (primary) hypertension; J44.9 Chronic obstructive pulmonary disease, unspecified; F41.9 Anxiety disorder, unspecified; G89.29 Other chronic pain; M54.9 Dorsalgia, unspecified; Z87.891 Personal history of nicotine dependence; Z82.49 Family history of ischemic heart disease and other diseases of the circulatory system; Z68.37 Body mass index [BMI] 37.0-37.9, adult; Z79.4 Long term (current) use of insulin; Z79.891 Long term (current) use of opiate analgesic; X58.XXXA Exposure to other specified factors, initial encounter
CPT/HCPCS: 82962

== ENCOUNTER → 2020-07-16 | Outpatient (CLI) | payer MEDICARE, MEDICAID ==
[~2020-07-16] MED LIST changes: +CATHETER FLUSH 10 ML SYR IV PRN; +HOLD METFORMIN - RECEIVED CONTRAST 20 ML VIAL IV SCH; +IOHEXOL 350 MG/ML 100 ML (OMNIPAQUE 350) VIAL IV ONE; +NS 100 ML (IVPB) BAG IV ONE
[2020-07-16 09:28] LABS: CREATININE SERUM 1.47 MG/DL (0.60-1.30)
--- NOTE | 2020-07-16 10:34 | Diagnostic Imaging Report ---
PROCEDURE: CT chest with contrast only. TECHNIQUE: Multiple contiguous axial images were obtained through the chest after administration of intravenous contrast. Auto Exposure Controls were utilized during the CT exam to meet ALARA standards for radiation dose reduction. INDICATION: Shortness of breath Lungs are clear. There are no effusions or pneumothoraces. There is no hilar or mediastinal lymphadenopathy. Aorta appears normal. There are no central pulmonary emboli. There is no evidence of right ventricular strain. IMPRESSION: Unremarkable CT chest Dictated by: Dictated on workstation # [id number]
== END ==
LOC: RAD 08:57
PROVIDERS: ATTEND Nurse Practitioner Family
DX: R06.00 Dyspnea, unspecified (principal); R06.02 Shortness of breath
CPT/HCPCS: 36415; 71260; 82565; 84520

== ENCOUNTER → 2020-08-20 | Outpatient (CLI) | payer MEDICARE, MEDICAID ==
[~2020-08-20] MED LIST changes: -CATHETER FLUSH 10 ML SYR IV PRN; -HOLD METFORMIN - RECEIVED CONTRAST 20 ML VIAL IV SCH; -IOHEXOL 350 MG/ML 100 ML (OMNIPAQUE 350) VIAL IV ONE; -NS 100 ML (IVPB) BAG IV ONE
--- NOTE | 2020-08-20 11:06 | Diagnostic Imaging Report ---
INDICATION: Trauma. History of spinal tumor. Pain. COMPARISON: None. FINDINGS: Frontal, lateral, and open-mouth radiographic views of the cervical spine were obtained. The cervical spine is seen down to the C6 level on the lateral view. The C6-C7 and C7-T1 levels are better visualized on the swimmer's view from the thoracic spine series. The visualized portions of the cervical spine show preservation of normal static alignment. There is no significant rasheed or retrolisthesis. There is no evidence of jumped facets. Vertebral body heights are maintained. There is no acute fracture. Moderate multilevel degenerative changes are present and consistent with intervertebral disc height loss with anterior and posterior disc/osteophyte complex formations, greatest at the C4-C5 through C6-C7 levels. The open-mouth view shows normal C1-C2 alignment. Surrounding soft tissue structures are unremarkable. IMPRESSION: 1. No acute fracture or dislocation in the visualized portions of the cervical spine. 2. Moderate multilevel degenerative changes. Dictated by: Dictated on workstation # [id number]
--- NOTE | 2020-08-20 11:11 | Diagnostic Imaging Report ---
INDICATION: Fall. Back pain. COMPARISON: None FINDINGS: Frontal and lateral views of the lumbar spine were obtained. Note is made of 6 lumbar type vertebral bodies. Alignment and vertebral heights are maintained. There is no fracture or destructive process. Moderate multilevel degenerative disease is noted in the lumbar spine, greatest at the L5-L6 level. Limited views of the abdomen demonstrate nonobstructive bowel gas pattern. IMPRESSION: 1. No acute fracture or dislocation of the lumbar spine. 2. Moderate multilevel degenerative changes. Dictated by: Dictated on workstation # [id number]
--- NOTE | 2020-08-20 11:12 | Diagnostic Imaging Report ---
INDICATION: Back pain. Trauma. History of spinal tumor COMPARISON: None FINDINGS: Frontal and lateral views of the thoracic spine were obtained. Visualization of the upper thoracic spine is limited on the lateral projection. Alignment and vertebral heights are maintained. There is no fracture or destructive process. There are no large paraspinal masses. Moderate multilevel degenerative disease is noted in the thoracic spine. Limited views of the lungs are clear. IMPRESSION: 1. No acute fracture or dislocation of the thoracic spine. 2. Moderate multilevel degenerative changes. Dictated by: Dictated on workstation # [id number]
== END ==
LOC: RAD 10:22
PROVIDERS: ATTEND Chiropractor
DX: M47.812 Spondylosis without myelopathy or radiculopathy, cervical region (principal); M47.814 Spondylosis without myelopathy or radiculopathy, thoracic region; M47.816 Spondylosis without myelopathy or radiculopathy, lumbar region; Z86.018 Personal history of other benign neoplasm
CPT/HCPCS: 72040; 72072; 72100

== ENCOUNTER 2020-08-26 17:56 | Emergency (ER) | payer MEDICARE, MEDICAID ==
[~2020-08-26] VITALS: Ht 182 cm; Wt 117.0 kg
[2020-08-26] MEDS ORDERED: NS IV 1000 ML 1,000 ML IV SCH (18:15)
--- NOTE | 2020-08-26 18:18 | ED General ---
General Chief Complaint: Dizziness/Syncope Stated Complaint: DIZZY Source of Information: Patient Exam Limitations: No Limitations History of Present Illness Date Seen by Provider: Aug 26, 2020 Time Seen by Provider: 18:14 Initial Comments dizziness since this morning, dark black stools x2 a few days ago when he was having some epigastric pain (did not take any pepto-bismol). No pain currently, just malaise and dizziness worse with movement. Timing/Duration: 1-2 Days Severity: Moderate Associated Systoms: Denies Symptoms Allergies and Home Medications Allergies Coded Allergies: No Known Drug Allergies (Unverified , 01/07/19) Home Medications Albuterol Sulfate 18 Gm Hfa.aer.ad, 1-2 PUFF IH QID, (Reported) Amitriptyline HCl 50 Mg Tablet, 50 MG PO HS, (Reported) Budesonide/Formoterol Fumarate 10.2 Gm Hfa.aer.ad, 2 PUFF IH BID, (Reported) Cholecalciferol (Vitamin D3) 1,000 Unit Capsule, 1,000 UNIT PO DAILY, (Reported) Cyclobenzaprine HCl 10 Mg Tablet, 10 MG PO HS, (Reported) Diazepam 2 Mg Tablet, 2 MG PO Q8H PRN for ANXIETY Prescribed by: ANGÉLICA DAVIS on 08/09/18 0809 Diclofenac Sodium 75 Mg Tablet.dr, 75 MG PO BID, (Reported) Ferrous Sulfate 325 Mg Tablet, 325 MG PO DAILY, (Reported) Furosemide 20 Mg Tablet, 20 MG PO DAILY PRN for SWELLING Prescribed by: ANGÉLICA DAVSI on 08/09/18 0809 Gabapentin 600 Mg Tablet, 600 MG PO TID, (Reported) Glimepiride 4 Mg Tablet, 4 MG PO BID, (Reported) Insulin Aspart 100 Unit/1 Ml Susp, 20 UNIT SC AC Prescribed by: ANGÉLICA DAVIS on 08/09/18 0810 Insulin Determir 1,000 Units/10 Ml Soln, 30 UNITS SQ BID, (Reported) Meclizine HCl 25 Mg Tablet, 12.5 MG PO QID, (Reported) TAKES 1/2 OF A (25 MG) TABLET Metoprolol Succinate 50 Mg Tab.er.24h, 50 MG PO DAILY Prescribed by: BRE JETER on 08/08/18 1008 Morphine Sulfate 60 Mg Tablet.er, 60 MG PO BID, (Reported) Oxycodone HCl/Acetaminophen 1 Each Tablet, 1 TAB PO TID PRN for PAIN-MODERATE Prescribed by: ANGÉLICA DAVIS on 08/09/18 0809 Solifenacin Succinate 5 Mg Tablet, 5 MG PO DAILY, (Reported) Patient Home Medication List Home Medication List Reviewed: Yes Review of Systems Review of Systems Constitutional: see HPI, dizziness EENTM: see HPI Respiratory: no symptoms reported Cardiovascular: no symptoms reported Gastrointestinal: melena Genitourinary: no symptoms reported Musculoskeletal: no symptoms reported Skin: no symptoms reported Psychiatric/Neurological: No Symptoms Reported Hematologic/Lymphatic: No Symptoms Reported Immunological/Allergic: no symptoms reported Past Mgyzvfp-Actdfg-Tlwewj Hx Patient Social History Type Used: Cigarettes, Smokeless Tobacco Former Smoker, Quit: May 07, 2009 2nd Hand Smoke Exposure: Yes Recent Hopitalizations: Yes Immunizations Up To Date Tetanus Booster (TDap): Unknown PED Vaccines UTD: No Date of Pneumonia Vaccine: Oct 28, 2018 Seasonal Allergies Seasonal Allergies: No Past Medical History Surgeries: Yes (L SHOULDER, R ANKLE, PENILE IMPLANT, ARTIFICIAL TESTICLE) Orthopedic, Penile Implant, Testicular, Vasectomy Respiratory: Yes Pneumonia, Sleep Apnea, COPD Currently Using CPAP: Yes Currently Using BIPAP: No Cardiac: Yes Hypertension Neurological: Yes Neuropathy Reproductive Disorders: Yes (ARTIFICAL TESTICLE, ) Sexually Transmitted Disease: No HIV/AIDS: No Genitourinary: Yes Renal Failure Gastrointestinal: No Musculoskeletal: Yes Arthritis, Back Injury, Chronic Back Pain Endocrine: Yes (MORBID OBESITY) Diabetes, Insulin dep HEENT: No (GLASSES) Loss of Vision: Denies Hearing Impairment: Denies Cancer: No Did You Recieve Any Treatments: No Psychosocial: Yes Anxiety Integumentary: No Blood Disorders: Yes (ANEMIA) Adverse Reaction/Blood Tranf: No (N/A) Family Medical History Diabetes mellitus 19 MOTHER G8 SISTER Hypertension 19 FATHER 19 MOTHER Myocardial infarction 19 FATHER (STROKES) Heart Disease, CVA, Diabetes Physical Exam Vital Signs Vital Signs - First Documented 08/26/20 18:04 Temp 35.5 Pulse 118 Resp 24 B/P (MAP) 158/101 (120) Pulse Ox 93 O2 Delivery Room Air Capillary Refill : Height, Weight, BMI Height: 6'1.00" Weight: 286lbs. 6.0oz. 131.109860hl; 37.00 BMI Method:Stated General Appearance: Chronically ill, Obese, Other (Tachycardia sinus at 105. BP 140/100. ) Eyes: Bilateral Eye Normal Inspection, Bilateral Eye PERRL HEENT: PERRL/EOMI, TMs Normal Neck: Full Range of Motion, Normal Inspection Respiratory: No Accessory Muscle Use, No Respiratory Distress Cardiovascular: Normal Peripheral Pulses, Tachycardia Gastrointestinal: Normal Bowel Sounds, Non Tender, Soft Extremity: Normal Capillary Refill, Normal Inspection Neurologic/Psychiatric: Alert, Oriented x3 Skin: Normal Color, Warm/Dry Procedures/Interventions Date of ETT Placement: Jul 22, 2018 Time of ETT Placement: 929 Progress/Results/Core Measures Suspected Sepsis SIRS Temperature: Pulse: Respiratory Rate: Laboratory Tests 08/26/20 18:15: White Blood Count 11.2H Blood Pressure / Mean: Laboratory Tests 08/26/20 18:15: Creatinine 1.63H, Platelet Count 124L, Total Bilirubin 0.5 Results/Orders Lab Results Laboratory Tests Test 08/26/20 18:09 08/26/20 18:15 08/26/20 18:30 08/26/20 19:42 Range/Units Glucometer 430 *H 383 H 70-110 MG/DL White Blood Count 11.2 H 4.3-11.0 10^3/uL Red Blood Count 2.98 L 4.30-5.52 10^6/uL Hemoglobin 8.8 L 13.3-17.7 g/dL Hematocrit 27 L 40-54 % Mean Corpuscular Volume 91 80-99 fL Mean Corpuscular Hemoglobin 30 25-34 pg Mean Corpuscular Hemoglobin Concent 33 32-36 g/dL Red Cell Distribution Width 13.8 10.0-14.5 % Platelet Count 124 L 130-400 10^3/uL Mean Platelet Volume 11.6 9.0-12.2 fL Immature Granulocyte % (Auto) 1 % Neutrophils (%) (Auto) 64 42-75 % Lymphocytes (%) (Auto) 23 12-44 % Monocytes (%) (Auto) 9 0-12 % Eosinophils (%) (Auto) 2 0-10 % Basophils (%) (Auto) 1 0-10 % Neutrophils # (Auto) 7.2 1.8-7.8 10^3/uL Lymphocytes # (Auto) 2.6 1.0-4.0 10^3/uL Monocytes # (Auto) 1.0 0.0-1.0 10^3/uL Eosinophils # (Auto) 0.2 0.0-0.3 10^3/uL Basophils # (Auto) 0.1 0.0-0.1 10^3/uL Immature Granulocyte # (Auto) 0.2 H 0.0-0.1 10^3/uL Percent Immature Platelet Fraction 7.2 0.0-7.6 % Sodium Level 135 135-145 MMOL/L Potassium Level 4.9 3.6-5.0 MMOL/L Chloride Level 103 98-107 MMOL/L Carbon Dioxide Level 17 L 21-32 MMOL/L Anion Gap 15 H 5-14 MMOL/L Blood Urea Nitrogen 59 H 7-18 MG/DL Creatinine 1.63 H 0.60-1.30 MG/DL Estimat Glomerular Filtration Rate 43 BUN/Creatinine Ratio 36 Glucose Level 449 *H 70-105 MG/DL Calcium Level 9.1 8.5-10.1 MG/DL Corrected Calcium 9.3 8.5-10.1 MG/DL Total Bilirubin 0.5 0.1-1.0 MG/DL Aspartate Amino Transf (AST/SGOT) 32 5-34 U/L Alanine Aminotransferase (ALT/SGPT) 39 0-55 U/L Alkaline Phosphatase 106 40-136 U/L Total Protein 6.2 L 6.4-8.2 GM/DL Albumin 3.8 3.2-4.5 GM/DL Beta-Hydroxybutyrate (Chem panel) 0.22 0.00-0.27 MMOL/L Urine Color YELLOW Urine Clarity CLEAR Urine pH 5.5 5-9 Urine Specific [place] 1.015 L 1.016-1.022 Urine Protein NEGATIVE NEGATIVE Urine Glucose (UA) 3+ H NEGATIVE Urine Ketones NEGATIVE NEGATIVE Urine Nitrite NEGATIVE NEGATIVE Urine Bilirubin NEGATIVE NEGATIVE Urine Urobilinogen 0.2 < = 1.0 MG/DL Urine Leukocyte Esterase NEGATIVE NEGATIVE Urine RBC (Auto) NEGATIVE NEGATIVE Urine RBC /HPF Urine WBC /HPF Urine Crystals /LPF Urine Bacteria /HPF Urine Casts /LPF Urine Mucus /LPF Urine Culture Indicated NO My Orders Orders - NAYELI VELASCO APRN Cbc With Automated Diff (08/26/20 18:12) Comprehensive Metabolic Panel (08/26/20 18:12) Ua Culture If Indicated (08/26/20 18:12) Ct Head Wo (08/26/20 18:12) Ed Iv/Invasive Line Start (08/26/20 18:12) Red Cells Leukocytes Reduced (08/26/20 18:12) Ns Iv 1000 Ml (Sodium Chloride 0.9%) (08/26/20 18:15) Type And Screen (08/26/20 18:12) Beta Hydroxybutyrate (08/26/20 18:40) Insulin (Regular) Human (Novolin R (Per (08/26/20 19:30) Meclizine Tablet (Antivert Tablet) (08/26/20 19:45) Insulin (Regular) Human (Novolin R (Per (08/26/20 19:45) Medications Given in ED Current Medications Medications Dose Ordered Sig/Jaspal Route Start Time Stop Time Status Last Admin Dose Admin Meclizine HCl 25 mg ONCE ONCE PO 08/26/20 19:45 08/26/20 19:46 DC 08/26/20 19:50 25 MG Vital Signs/I&O 08/26/20 18:04 Temp 35.5 Pulse 118 Resp 24 B/P (MAP) 158/101 (120) Pulse Ox 93 O2 Delivery Room Air Capillary Refill : Departure Communication (Admissions) 2025-Fecal occult blood is negative at the bedside. He denies having any dark or tarry stools since Sunday. Denies any abdominal pain. He is feeling better at this time. Impression Primary Impression: Type 2 diabetes mellitus Additional Impressions: Volume depletion anemia Disposition: 01 HOME, SELF-CARE Condition: Stable Departure-Patient Inst. Decision time for Depature: 20:08 Referrals: LAUREN RODRIGUEZ MD (PCP/Family) Primary Care Physician Patient Instructions: Vertigo (a Type of Dizziness) Add. Discharge Instructions: 1. Call Dr. Rodriguez tomorrow make an appointment to be seen a soon as he can see you. Return to ER for any worsening. All discharge instructions reviewed with patient and/or family. Voiced understanding. Copy Copies To 1: LAUREN RODRIGUEZ MD, PETER J APRN Aug 26, 2020 18:18
[2020-08-26 18:31] LABS: BASOPHILS # (AUTO) 0.1 10^3/uL (0.0-0.1); BASOPHILS % (AUTO) 1 % (0-10); EOSINOPHILS # (AUTO) 0.2 10^3/uL (0.0-0.3); EOSINOPHILS % (AUTO) 2 % (0-10); HEMATOCRIT 27 % (40-54); HEMOGLOBIN 8.8 g/dL (13.3-17.7); LYMPHOCYTES # (AUTO) 2.6 10^3/uL (1.0-4.0); LYMPHOCYTES % (AUTO) 23 % (12-44); MEAN CORPUSCULAR HEMOGLOBIN 30 pg (25-34); MEAN CORPUSCULAR HGB CONC 33 g/dL (32-36); MEAN CORPUSCULAR VOLUME 91 fL (80-99); MEAN PLATELET VOLUME 11.6 fL (9.0-12.2); MONOCYTES % (AUTO) 9 % (0-12); NEUTROPHILS # (AUTO) 7.2 10^3/uL (1.8-7.8); NEUTROPHILS % (AUTO) 64 % (42-75); PLATELET COUNT 124 10^3/uL (130-400); WHITE BLOOD COUNT 11.2 10^3/uL (4.3-11.0)
[2020-08-26 18:36] LABS: BILIRUBIN,URINE NEGATIVE (NEGATIVE); CLARITY,URINE CLEAR; COLOR,URINE YELLOW; GLUCOSE, URINE (UA) 3+ (NEGATIVE); KETONES,URINE NEGATIVE (NEGATIVE); LEUKOCYTE ESTERASE ,URINE NEGATIVE (NEGATIVE); NITRITE,URINE NEGATIVE (NEGATIVE); PH,URINE 5.5 (5-9); PROTEIN,URINE NEGATIVE (NEGATIVE)
[2020-08-26 18:40] LABS: ALBUMIN 3.8 GM/DL (3.2-4.5); POTASSIUM 4.9 MMOL/L (3.6-5.0)
[2020-08-26 18:41] LABS: CALCIUM 9.1 MG/DL (8.5-10.1)
[2020-08-26 18:43] LABS: TOTAL PROTEIN 6.2 GM/DL (6.4-8.2)
[2020-08-26 18:45] LABS: BILIRUBIN,TOTAL 0.5 MG/DL (0.1-1.0)
[2020-08-26 18:46] LABS: CREATININE SERUM 1.63 MG/DL (0.60-1.30)
--- NOTE | 2020-08-26 19:08 | Diagnostic Imaging Report ---
PROCEDURE: CT head without contrast. TECHNIQUE: Multiple contiguous axial images were obtained through the brain without the use of intravenous contrast. Auto Exposure Controls were utilized during the CT exam to meet ALARA standards for radiation dose reduction. INDICATION: Dizziness. COMPARISON: Prior examination from 07/22/2018. FINDINGS: The ventricles and sulci are within normal limits. There is no hydrocephalus or cerebral edema. There is no midline shift or mass effect. There is no intracranial mass, hemorrhage, or extra-axial fluid collection. The visualized paranasal sinuses and mastoid air cells are clear. There are no regional areas of decreased attenuation appreciated to suggest an acute CVA. IMPRESSION: No acute intracranial abnormality. Dictated by: Dictated on workstation # [id number]
[2020-08-26] MEDS ORDERED: inSUlin (REGULAR) HUMAN 1 UNIT/0.01 ML (CHARGE PER UNIT) SC ONE (19:30)
[2020-08-26] MEDS ORDERED: inSUlin (REGULAR) HUMAN 1 UNIT/0.01 ML (CHARGE PER UNIT) IV SCH (19:45)
[2020-08-26] MEDS ORDERED: MECLIZINE 25 MG (ANTIVERT) TAB PO ONE (19:45)
[2020-08-26 20:46] VITALS: BP 114/82
== END 2020-08-26 20:48 | disposition home or self-care (01) ==
LOC: EDUNIT# 17:56 → ER 17:58
DX: E11.9 Type 2 diabetes mellitus without complications (principal); E86.9 Volume depletion, unspecified; D64.9 Anemia, unspecified; E66.01 Morbid (severe) obesity due to excess calories; F41.9 Anxiety disorder, unspecified; I10 Essential (primary) hypertension; J44.9 Chronic obstructive pulmonary disease, unspecified; G89.29 Other chronic pain; M54.9 Dorsalgia, unspecified; Z68.37 Body mass index [BMI] 37.0-37.9, adult; Z87.891 Personal history of nicotine dependence; Z79.4 Long term (current) use of insulin; Z79.891 Long term (current) use of opiate analgesic; Z79.899 Other long term (current) drug therapy
CPT/HCPCS: 36415; 70450; 80053; 81000; 82010; 82947; 85025; 86850; 86900; 86901; 86920; 93005

== ENCOUNTER → 2020-09-20 | Outpatient (CLI) | payer MEDICARE, MEDICAID | LOC: LABNPT 09:25 | PROVIDERS: ATTEND Pediatrics | DX: Z01.812 Encounter for preprocedural laboratory examination (principal); Z20.822 Contact with and (suspected) exposure to COVID-19 | CPT/HCPCS: 87635 ==

== ENCOUNTER 2020-12-14 23:19 | Inpatient (IN) | payer MEDICARE, MEDICAID ==
[~2020-12-14] VITALS: Ht 185.5 cm; Wt 124.3 kg
[2020-12-14 23:19] VITALS: BP 144/89
[~2020-12-14 23:19] MED LIST changes: -SULF1TAB35 PO; +SULF1TAB38 PO
[2020-12-14 23:43] LABS: BASOPHILS % (AUTO) 1 % (0-10); EOSINOPHILS # (AUTO) 0.2 10^3/uL (0.0-0.3); EOSINOPHILS % (AUTO) 3 % (0-10); HEMATOCRIT 44 % (40-54); HEMOGLOBIN 13.9 g/dL (13.3-17.7); LYMPHOCYTES # (AUTO) 2.1 10^3/uL (1.0-4.0); LYMPHOCYTES % (AUTO) 27 % (12-44); MEAN CORPUSCULAR HEMOGLOBIN 28 pg (25-34); MEAN CORPUSCULAR HGB CONC 32 g/dL (32-36); MEAN CORPUSCULAR VOLUME 87 fL (80-99); MEAN PLATELET VOLUME 11.7 fL (9.0-12.2); MONOCYTES # (AUTO) 0.8 10^3/uL (0.0-1.0); MONOCYTES % (AUTO) 10 % (0-12); NEUTROPHILS # (AUTO) 4.8 10^3/uL (1.8-7.8); NEUTROPHILS % (AUTO) 61 % (42-75); PLATELET COUNT 182 10^3/uL (130-400)
[2020-12-14 23:48] LABS: INR 0.9 (0.8-1.4)
[2020-12-14 23:52] LABS: ALBUMIN 4.1 GM/DL (3.2-4.5)
[2020-12-14 23:53] LABS: POTASSIUM 4.9 MMOL/L (3.6-5.0)
[2020-12-14 23:55] LABS: TOTAL PROTEIN 7.2 GM/DL (6.4-8.2)
[2020-12-14 23:57] LABS: BILIRUBIN,TOTAL 0.3 MG/DL (0.1-1.0)
[2020-12-14 23:59] LABS: CREATININE SERUM 2.22 MG/DL (0.60-1.30)
[2020-12-15 00:01] LABS: MAGNESIUM 1.9 MG/DL (1.6-2.4)
[2020-12-15] MEDS ORDERED: NS IV 1000 ML 1,000 ML IV SCH (00:15)
[2020-12-15] MEDS ORDERED: ENOXAPARIN 60 MG/0.6 ML (LOVENOX) SYR SC ONE (00:45)
--- NOTE | 2020-12-15 00:54 | ED Cardiac General ---
History of Present Illness General Chief Complaint: Cardiac/General Problems Stated Complaint: CP Nursing Triage Note: Pt arrival to ER via [facility]. EMS states that they were called for a patient who felt like his heart was coming out of his chest. EMS states that they found patient awake and alert, very pale and diaphoretic. Pt was found in V-tach. Pt denied chest pain as does he upon arrival. EMS shocked patient at 100 j with patient converting to sinus rythm. Pt denies cardiac history. Patient denies other complaints. Patient is placed on clinical research monitor, EKG obtained, placed on zoll monitor and vitals monitored. Pt is on NC at 2 lpm. Source: patient, old records Exam Limitations: no limitations History of Present Illness Date Seen by Provider: Dec 14, 2020 Time Seen by Provider: 23:21 Initial Comments This 65-year-old gentleman presents to the emergency room via EMS after waking feeling dysphoric with tachycardia. EMS arrived and on assessment noted ventricular tachycardia. He converted to sinus rhythm with defibrillation x1. Nitroglycerin x1 and aspirin 324 mg were also given. He denies chest pain. EMS was concerned about possible STEMI after conversion. EKG on arrival did not demonstrated STEMI. Patient denies any history of CAD. Allergies and Home Medications Allergies Coded Allergies: No Known Drug Allergies (Unverified , 01/07/19) Patient Home Medication List Home Medication List Reviewed: Yes Albuterol Sulfate (Ventolin Hfa) 18 Gm Hfa.aer.ad, 1-2 PUFF IH QID, (Reported) Entered as Reported by: ELIZABETH MAY on 02/04/171617 Last Action: Last Taken Edited Amitriptyline HCl (Amitriptyline HCl) 50 Mg Tablet, 50 MG PO HS, (Reported) Entered as Reported by: ELIZABETH MAY on 02/04/171617 Last Action: Last Taken Edited Budesonide/Formoterol Fumarate (Symbicort 160-4.5 Mcg Inhaler) 10.2 Gm Hfa.aer.ad, 2 PUFF IH BID, (Reported) Entered as Reported by: ELIZABETH MAY on 02/04/171617 Last Action: Last Taken Edited Cholecalciferol (Vitamin D3) (Vitamin D3) 1,000 Unit Capsule, 1,000 UNIT PO DAILY, (Reported) Entered as Reported by: ELIZABETH MAY on 02/04/171617 Last Action: Last Taken Edited Cinnamon Bark (Cinnamon) 500 Mg Capsule, 500 MG PO, (Reported) Entered as Reported by: CHIN LIN on 12/15/20754 Last Action: New Order Cyanocobalamin (Vitamin B-12) (Vitamin B-12) 500 Mcg Lozenge, 500 MCG PO DAILY, (Reported) Entered as Reported by: CHIN LIN on 12/15/20754 Last Action: New Order Cyclobenzaprine HCl (Cyclobenzaprine HCl) 10 Mg Tablet, 10 MG PO HS, (Reported) Entered as Reported by: ELIZABETH MAY on 02/04/171617 Last Action: Last Taken Edited Diazepam (Diazepam) 2 Mg Tablet, 2 MG PO Q8H PRN for ANXIETY Prescribed by: ANGÉLICA DAVIS on 08/09/18 0809 Last Action: Last Taken Edited Diclofenac Sodium (Diclofenac Sodium) 75 Mg Tablet.dr, 75 MG PO BID, (Reported) Entered as Reported by: ELIZABETH MAY on 02/04/171617 Last Action: Last Taken Edited Ferrous Sulfate (Ferosul) 325 Mg Tablet, 325 MG PO DAILY, (Reported) Entered as Reported by: CHRISTIANO HARDIN on 01/07/19 1306 Last Action: Last Taken Edited Furosemide (Furosemide) 20 Mg Tablet, 20 MG PO DAILY PRN for SWELLING Prescribed by: ANGÉLICA DAVIS on 08/09/18 0809 Last Action: Last Taken Edited Gabapentin (Gabapentin) 600 Mg Tablet, 600 MG PO TID, (Reported) Entered as Reported by: ELVIRA SZYMANSKI on 06/13/16 0950 Last Action: Last Taken Edited Glimepiride (Glimepiride) 4 Mg Tablet, 4 MG PO BID, (Reported) Entered as Reported by: ELIZABETH MAY on 02/04/171617 Last Action: Last Taken Edited Insulin Aspart (Novolog) 100 Unit/1 Ml Susp, 20 UNIT SC AC Prescribed by: ANGÉLICA DAVIS on 08/09/18 0810 Last Action: Last Taken Edited Insulin Determir (Levemir) 1,000 Units/10 Ml Soln, 40 UNITS SQ BID, (Reported) Entered as Reported by: CHIN LIN on 12/15/20 075 Last Action: New Order Meclizine HCl (Meclizine HCl) 25 Mg Tablet, 12.5 MG PO QID, (Reported) Entered as Reported by: ELIZABETH MAY on 02/04/171617 Last Action: Last Taken Edited Morphine Sulfate (Ms Contin) 60 Mg Tablet.er, 60 MG PO BID, (Reported) Entered as Reported by: CHRISTIANO HARDIN on 01/07/19 1306 Last Action: Last Taken Edited Oxycodone HCl/Acetaminophen (Oxycodone-Acetaminophen 5-325) 1 Each Tablet, 1 TAB PO TID PRN for PAIN-MODERATE Prescribed by: ANGÉLICA DAVIS on 08/09/18 0809 Last Action: Last Taken Edited Vit W-Ca,Fe,FA(<1 mg) ( Vitamins) 1 Each Tablet, 1 EACH PO, (Reported) Entered as Reported by: CHIN LIN on 12/15/20 0755 Last Action: New Order Discontinued Medications Insulin Determir (Levemir) 1,000 Units/10 Ml Soln, 30 UNITS SQ BID, (Reported) Discontinued Reason: No Longer Taking Entered as Reported by: ELIZABETH MAY on 02/04/171617 Last Action: Discontinued Metoprolol Succinate (Metoprolol Succinate) 50 Mg Tab.er.24h, 50 MG PO DAILY Discontinued Reason: No Longer Taking Prescribed by: BRE JETER on 08/08/18 1008 Last Action: Discontinued Solifenacin Succinate (Vesicare) 5 Mg Tablet, 5 MG PO DAILY, (Reported) Discontinued Reason: No Longer Taking Entered as Reported by: ELIZABETH MAY on 02/04/171617 Last Action: Discontinued Review of Systems Review of Systems Constitutional: see HPI EENTM: No Symptoms Reported Respiratory: No Symptoms Reported Cardiovascular: See HPI Gastrointestinal: No Symptoms Reported Genitourinary: No Symptoms Reported Musculoskeletal: no symptoms reported Skin: no symptoms reported Psychiatric/Neurological: No Symptoms Reported Endocrine: No Symptoms Reported Hematologic/Lymphatic: No Symptoms Reported Past Rkczikd-Dwicqk-Yjjjzq Hx Patient Social History Tobacco Use?: No Use of E-Cig and/or Vaping dev: No Substance use?: No Alcohol Use?: No Pt feels they are or have been: No Immunizations Up To Date Tetanus Booster (TDap): Unknown PED Vaccines UTD: No Influenza Vaccine Up-to-Date: No; Not Current First/Initial COVID19 Vaccinat: none Second COVID19 Vaccination Aleksandr: none Seasonal Allergies Seasonal Allergies: No Past Medical History Surgeries: Yes (L SHOULDER, R ANKLE, PENILE IMPLANT, ARTIFICIAL TESTICLE) Orthopedic, Penile Implant, Testicular, Vasectomy Respiratory: Yes Pneumonia, Sleep Apnea, COPD Currently Using CPAP: Yes Currently Using BIPAP: No Cardiac: Yes High Cholesterol, Hypertension Neurological: Yes Neuropathy Reproductive Disorders: Yes (ARTIFICAL TESTICLE, ) Sexually Transmitted Disease: No HIV/AIDS: No Genitourinary: Yes Renal Failure Gastrointestinal: No Musculoskeletal: Yes (Charcot foot) Arthritis, Back Injury, Chronic Back Pain Endocrine: Yes (MORBID OBESITY) Diabetes, Insulin dep HEENT: No (GLASSES) Loss of Vision: Denies Hearing Impairment: Denies Cancer: No Did You Recieve Any Treatments: No Psychosocial: Yes Anxiety Integumentary: No Blood Disorders: Yes (ANEMIA) Adverse Reaction/Blood Tranf: No (N/A) Family Medical History Diabetes mellitus 19 MOTHER G8 SISTER Hypertension 19 FATHER 19 MOTHER Myocardial infarction 19 FATHER (STROKES) Heart Disease, CVA, Diabetes Physical Exam Vital Signs Vital Signs - First Documented 12/14/20 23:19 Temp 35.8 Pulse 108 Resp 18 B/P (MAP) 144/89 (107) Pulse Ox 95 O2 Delivery Room Air O2 Flow Rate 2.00 Capillary Refill : Less Than 3 Seconds Height, Weight, BMI Height: 6'1.00" Weight: 286lbs. 6.0oz. 131.979281la; 36.00 BMI Method:Stated General Appearance: No Apparent Distress, WD/WN, Obese HEENT: PERRL/EOMI, Normal ENT Inspection Neck: Normal Inspection; No JVD Respiratory: Lungs Clear, Normal Breath Sounds, No Accessory Muscle Use Cardiovascular: Regular Rate, Rhythm, No Edema, No Murmur Gastrointestinal: Normal Bowel Sounds, Non Tender, Soft Extremity: Normal Inspection, Non Tender, No Calf Tenderness Neurologic/Psychiatric: Alert, Oriented x3, No Motor/Sensory Deficits, Normal Mood/Affect, field clerk II-XII Norm as Tested Skin: Normal Color, Warm/Dry Procedures/Interventions Date of ETT Placement: Jul 22, 2018 Time of ETT Placement: 0930 Progress/Results/Core Measures Results/Orders Lab Results Laboratory Tests Test 12/14/20 23:23 Range/Units White Blood Count 8.0 4.3-11.0 10^3/uL Red Blood Count 5.02 4.30-5.52 10^6/uL Hemoglobin 13.9 13.3-17.7 g/dL Hematocrit 44 40-54 % Mean Corpuscular Volume 87 80-99 fL Mean Corpuscular Hemoglobin 28 25-34 pg Mean Corpuscular Hemoglobin Concent 32 32-36 g/dL Red Cell Distribution Width 13.7 10.0-14.5 % Platelet Count 182 130-400 10^3/uL Mean Platelet Volume 11.7 9.0-12.2 fL Immature Granulocyte % (Auto) 0 % Neutrophils (%) (Auto) 61 42-75 % Lymphocytes (%) (Auto) 27 12-44 % Monocytes (%) (Auto) 10 0-12 % Eosinophils (%) (Auto) 3 0-10 % Basophils (%) (Auto) 1 0-10 % Neutrophils # (Auto) 4.8 1.8-7.8 10^3/uL Lymphocytes # (Auto) 2.1 1.0-4.0 10^3/uL Monocytes # (Auto) 0.8 0.0-1.0 10^3/uL Eosinophils # (Auto) 0.2 0.0-0.3 10^3/uL Basophils # (Auto) 0.0 0.0-0.1 10^3/uL Immature Granulocyte # (Auto) 0.0 0.0-0.1 10^3/uL Prothrombin Time 13.0 12.2-14.7 SEC INR Comment 0.9 0.8-1.4 Activated Partial Thromboplast Time 33 24-35 SEC Sodium Level 135 135-145 MMOL/L Potassium Level 4.9 3.6-5.0 MMOL/L Chloride Level 102 98-107 MMOL/L Carbon Dioxide Level 18 L 21-32 MMOL/L Anion Gap 15 H 5-14 MMOL/L Blood Urea Nitrogen 25 H 7-18 MG/DL Creatinine 2.22 H 0.60-1.30 MG/DL Estimat Glomerular Filtration Rate 30 BUN/Creatinine Ratio 11 Glucose Level 678 *H 70-105 MG/DL Calcium Level 9.0 8.5-10.1 MG/DL Corrected Calcium 8.9 8.5-10.1 MG/DL Magnesium Level 1.9 1.6-2.4 MG/DL Total Bilirubin 0.3 0.1-1.0 MG/DL Aspartate Amino Transf (AST/SGOT) 43 H 5-34 U/L Alanine Aminotransferase (ALT/SGPT) 59 H 0-55 U/L Alkaline Phosphatase 126 40-136 U/L Myoglobin 121.5 H 10.0-92.0 NG/ML Troponin I 0.031 H <0.028 NG/ML Total Protein 7.2 6.4-8.2 GM/DL Albumin 4.1 3.2-4.5 GM/DL My Orders Orders - MYRA BRAXTON MD Cbc With Automated Diff (12/14/20 23:36) Magnesium (12/14/20 23:36) Chest 1 View, Ap/Pa Only (12/14/20 23:36) Ekg Tracing (12/14/20 23:36) Comprehensive Metabolic Panel (12/14/20 23:36) Myoglobin Serum (12/14/20 23:36) Protime With Inr (12/14/20 23:36) Partial Thromboplastin Time (12/14/20 23:36) O2 (12/14/20 23:36) Monitor-Rhythm Ecg Trace Only (12/14/20 23:36) Ed Iv/Invasive Line Start (12/14/20 23:36) Troponin I (12/14/20 23:36) Ns Iv 1000 Ml (Sodium Chloride 0.9%) (12/15/20 00:15) Enoxaparin Injection (Lovenox Injection) (12/15/20 00:45) Medications Given in ED Current Medications Medications Dose Ordered Sig/Jaspal Route Start Time Stop Time Status Last Admin Dose Admin Enoxaparin Sodium 120 mg ONCE ONCE SC 12/15/20 00:45 12/15/20 00:46 DC 12/15/20 00:46 120 MG Vital Signs/I&O 12/14/20 12/14/20 23:19 23:19 Temp 35.8 Pulse 108 Resp 18 B/P (MAP) 144/89 (107) Pulse Ox 95 95 O2 Delivery Room Air Nasal Cannula O2 Flow Rate 2.00 Blood Pressure Mean: 107 Progress Progress Note #1: Time: 01:05 Progress Note EKG was at baseline by the time of arrival. There was no acute ST elevation or depression. Left bundle branch block was noted and appears similar to prior EKG. Dr. Fabian was immediately consulted. Complaint Investigations Officer team was activated but patient was asymptomatic and had no ST elevation while in the ER and therefore emergent cath was not performed. Lovenox was administered. IV fluids and 10 units of insulin are being given to start treating the hyperglycemia. He will remain n.p.o. I have ordered a reduced dose of his Levemir. He normally takes 40 units twice daily and I am ordering 30 units twice daily while he is n.p.o. Pending results of repeat Accu-Chek in the unit, insulin drip may be ordered at the direction of eICU. I did consult the eICU at 0100. Patient had no adverse cardiac events in the emergency room and denied chest pain. He requests full CODE STATUS. Progress Note #2: Time: 01:22 Progress Note I was reviewing the admission plan with the patient. In discussion he mentioned that he is often tachycardic. I asked him if he is taking the Toprol XL and his medication list. He states he was having adverse effects related to beta- mariano use and was taken off of them. Initial ECG Impression Date: Dec 14, 2020 Initial ECG Impression Time: 23:21 Initial ECG Rate: 113 Initial ECG Rhythm: S.Tach Comment Sinus tachycardia with no ST elevation or depression. Left bundle branch block similar to prior. No axis deviation. Diagnostic Imaging Diagonstic Imaging: Xray Plain Films/CT/US/NM/MRI: chest Comments Chest x-ray viewed by me and report not yet available. No acute abnormalities appreciated. Compared with prior. Interval improvement. Departure Communication (Admissions) Time/Spoke to Admitting Phy: 00:45 Dr. Arrington Time/Spoke to Consulting Phy: 23:26 Dr. Fabian Impression Primary Impression: Ventricular tachycardia Additional Impressions: Hyperglycemia Acute kidney injury Disposition: ADMITTED INPATIENT Condition: Improved Admissions Decision to Admit Reason: Admit from ER (General) Decision to Admit/Date: Dec 14, 2020 Time/Decision to Admit Time: 23:21 Departure-Patient Inst. Referrals: LAUREN RODRIGUEZ MD (PCP/Family) Primary Care Physician MYRA BRAXTON MD Dec 15, 2020 00:54
[2020-12-15] MEDS ORDERED: NS IV 1000 ML 1,000 ML ONE (01:56)
[2020-12-15] MEDS ORDERED: inSUlin (REGULAR) HUMAN 1 UNIT/0.01 ML (CHARGE PER UNIT) IV ONE (03:00)
[2020-12-15] MEDS: NS IV 1000 ML 1,000 ML IV SCH ×5 (03:39→21:51)
[2020-12-15 03:44] LABS: BASOPHILS % (AUTO) 1 % (0-10); EOSINOPHILS # (AUTO) 0.1 10^3/uL (0.0-0.3); EOSINOPHILS % (AUTO) 2 % (0-10); HEMATOCRIT 44 % (40-54); HEMOGLOBIN 13.9 g/dL (13.3-17.7); LYMPHOCYTES # (AUTO) 1.9 10^3/uL (1.0-4.0); LYMPHOCYTES % (AUTO) 23 % (12-44); MEAN CORPUSCULAR HEMOGLOBIN 27 pg (25-34); MEAN CORPUSCULAR HGB CONC 32 g/dL (32-36); MEAN CORPUSCULAR VOLUME 87 fL (80-99); MEAN PLATELET VOLUME 12.5 fL (9.0-12.2); MONOCYTES # (AUTO) 0.7 10^3/uL (0.0-1.0); MONOCYTES % (AUTO) 9 % (0-12); NEUTROPHILS # (AUTO) 5.5 10^3/uL (1.8-7.8); NEUTROPHILS % (AUTO) 66 % (42-75); PLATELET COUNT 99 10^3/uL (130-400); WHITE BLOOD COUNT 8.3 10^3/uL (4.3-11.0)
[2020-12-15 03:49] LABS: POTASSIUM 5.2 MMOL/L (3.6-5.0)
[2020-12-15 03:50] LABS: CALCIUM 9.3 MG/DL (8.5-10.1)
[2020-12-15 03:55] LABS: CREATININE SERUM 1.86 MG/DL (0.60-1.30)
[2020-12-15 03:57] LABS: MAGNESIUM 2.2 MG/DL (1.6-2.4)
[2020-12-15] MEDS ORDERED: inSUlin ASPART (NovoLOG) 1 UNIT/0.01 ML (CHARGE PER UNIT) SC SCH (07:00)
--- NOTE | 2020-12-15 07:03 | Diagnostic Imaging Report ---
Portable erect AP chest at 1201h. INDICATION: Chest pain The heart is borderline enlarged but stable when compared to the prior exam of 07/27/2018. The alveolar/interstitial pulmonary infiltrates seen previously have essentially resolved. There is no evidence for failure, pneumonia or for a pleural effusion at this time. There is a band of increased density in the right infrahilar region. This is probably secondary to superimposition of the osseous structures and the bronchovascular markings. The mediastinum is not widened. The osseous structures are intact. The central venous catheter on the right seen previously has been removed. IMPRESSION: The appearance of the chest has improved since the prior exam as both lungs do seem better aerated. There is no evidence for active disease at this time. Dictated by: Dictated on workstation # [id number]
[2020-12-15] MEDS: meTOprolol TARTRATE 50 MG (LOPRESSOR) TAB PO SCH ×2 (07:40→20:35)
[2020-12-15] MEDS: ASPIRIN E.C. 81 MG (ECOTRIN) TAB PO SCH (07:40)
[2020-12-15] MEDS ORDERED: INSU100V5 SQ (07:52)
[2020-12-15] MEDS ORDERED: CINN500C2 PO (07:55)
[2020-12-15] MEDS ORDERED: PREN1TAB79 PO (07:55)
[2020-12-15] MEDS ORDERED: CYAN500L PO (07:55)
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
[2020-12-15] MEDS ORDERED: CLOPIDOGREL 300 MG (PLAVIX) TABLET PO ONE (09:00)
--- NOTE | 2020-12-15 09:08 | History & Physical-Hospitalist ---
History of Present Illness HPI/Chief Complaint Patient 65-year-old patient with past medical history of insulin-dependent diabetes, hypertension, hyperlipidemia, obstructive sleep apnea who presented to the emergency department due to outpatients. He states he was sitting at home not doing much anything and back was trying to fall asleep when asked about 10 minutes of dozing he woke up with his heart racing. He states he had some chest pain that was mild that radiated to his jaw and his neck. He became very diaphoretic. He was quite nauseous. He called EMS and on their arrival he was found to be in sustained ventricular tachycardia. He was defibrillated x1 and returned to sinus rhythm. He was admitted to the ICU for further monitoring. He has had elevated troponin as well. This morning he reports feeling better and near normal. He was also found to be very hyperglycemic and started on insulin drip. He states that his glucometer at home reads as mostly in the 150s to 300s but that he checked" presenting here and it was in the 300s and on arr ival it was in the 600s. Date Seen 12/15/20 Time Seen by a Provider: 09:08 Attending Physician Benton Arrington MD PCP Elijah Nuno MD Referring Physician Date of Admission Dec 15, 2020 at 00:51 Home Medications & Allergies Home Medications Reviewed patient Home Medication Reconciliation performed by pharmacy medication reconciliations blow mold technician and/or nursing. Patients Allergies have been reviewed. Allergies Allergies Coded Allergies No Known Drug Allergies (Iqktbyexfd83/15/19) Past Smfjuop-Tuovuj-Wzjtcj Hx Patient Social History Tobacco Use?: No Tobacco type used: Cigarettes Smoking Status: Former Smoker Smokeless Tobacco Frequency: Former User Use of E-Cig and/or Vaping dev: No Substance use?: No Alcohol Use?: No Pt feels they are or have been: No Immunizations Up To Date First/Initial COVID19 Vaccinat: none Second COVID19 Vaccination Aleksandr: none Tetanus Booster (TDap): Unknown Hepatitis A: No Hepatitis B: No PED Vaccines UTD: No Date of Pneumonia Vaccine: Oct 28, 2018 Seasonal Allergies Seasonal Allergies: No Current Status Advance Directives: No Communicates: Verbally Primary Language: Uruguayan Preferred Spoken Language: Uruguayan Sensory deficits: Vision impairment Implanted or Applied Medical D: CPAP, BiPAP Past Medical History Surgeries: Orthopedic, Penile Implant, Testicular, Vasectomy Pneumonia, Sleep Apnea, COPD Currently Using CPAP: Yes Currently Using BIPAP: No High Cholesterol, Hypertension Neuropathy Sexually Transmitted Disease: No HIV/AIDS: No Renal Failure Arthritis, Back Injury, Chronic Back Pain Diabetes, Insulin dep Loss of Vision: Denies Hearing Impairment: Denies Did You Recieve Any Treatments: No Anxiety Blood Disorders: Yes (ANEMIA) Adverse Reaction/Blood Tranf: No (N/A) Past Medical History 1. Degenerative Disk Disease with concern for extradural lesion in Lumbar spine with evaluation by neurosurgery pending- Majchristi. Recent MRI on 06-07 was most likely demonstrating fibrosis. 2. Hypertension- not filling medications however states he is taking it. 3. Diabetes Mellitus- pt. not filling medications for diabetes, however states he is taking regularly 4. Chronic narcotic use for chronic pain- pt. is overusing narcotics 5. History of scrotal cellulitis 6. Peripheral Neuropathy 7. Frequent falls secondary to neuropathy Past Surgical History 1. Removal of testicle with penile implant 2. ORIF Rt ankle with removal of screws 3. Vasectomy 4. Left Testicular removal secondary to recurrent hydrocele 5. Penile Implant secondary to erectile dysfunction 6. Left rotator Cuff Repair 7. Bilateral Knee Surgeries Family Medical History Diabetes mellitus 19 MOTHER G8 SISTER Hypertension 19 FATHER 19 MOTHER Myocardial infarction 19 FATHER (STROKES) Heart Disease, CVA, Diabetes Review of Systems Constitutional: No chills; diaphoresis; No fever EENTM: no symptoms reported Respiratory: No cough; short of breath Cardiovascular: chest pain; No edema; palpitations Gastrointestinal: No abdominal pain, No constipation, No diarrhea; nausea Genitourinary: no symptoms reported Musculoskeletal: no symptoms reported Skin: no symptoms reported Psychiatric/Neurological: No Symptoms Reported Physical Exam Physical Exam Vital Signs Vital Signs - First Documented 12/14/20 23:19 Temp 35.8 Pulse 108 Resp 18 B/P (MAP) 144/89 (107) Pulse Ox 95 O2 Delivery Room Air O2 Flow Rate 2.00 Capillary Refill : Less Than 3 Seconds Height, Weight, BMI Height: 6'1.00" Weight: 286lbs. 6.0oz. 131.062758bw; 36.79 BMI Method:Stated General Appearance: No Apparent Distress, Chronically ill, Obese HEENT: PERRL/EOMI, Moist Mucous Membranes Neck: Normal Inspection, Supple Respiratory: Lungs Clear, No Accessory Muscle Use, No Respiratory Distress Cardiovascular: Regular Rate, Rhythm, No Murmur Gastrointestinal: Normal Bowel Sounds, Non Tender, Soft Extremity: Normal Capillary Refill, No Calf Tenderness, No Pedal Edema Neurologic/Psychiatric: Alert, Oriented x3, Normal Mood/Affect Results Results/Procedures Labs Laboratory Tests 12/14/20 23:23 12/15/20 03:05 12/16/20 04:20 Patient resulted labs reviewed. Imaging: Reviewed Imaging Report Imaging [facility] [place] NAME: VASQUEZ CAMPBELL V [facility] REC#: [id number] PT STATUS: ADM IN : 1955 PHYSICIAN: MYRA BRAXTON MD ADMIT DATE: 12/15/20/ICU Signed Date of Exam:12/14/20 CHEST 1 VIEW, AP/PA ONLY Portable erect AP chest at 1201h. INDICATION: Chest pain The heart is borderline enlarged but stable when compared to the prior exam of 07/27/2018. The alveolar/interstitial pulmonary infiltrates seen previously have essentially resolved. There is no evidence for failure, pneumonia or for a pleural effusion at this time. There is a band of increased density in the right infrahilar region. This is probably secondary to superimposition of the osseous structures and the bronchovascular markings. The mediastinum is not widened. The osseous structures are intact. The central venous catheter on the right seen previously has been removed. IMPRESSION: The appearance of the chest has improved since the prior exam as both lungs do seem better aerated. There is no evidence for active disease at this time. Dictated by: Dictated on workstation # [id number] Dict: 12/15/20 0658 Trans: 12/15/20 1519 [facility] [id number] Interpreted by: LONNIE PAYTON MD Electronically signed by: LONNIE PAYTON MD 12/15/20 1519 Assessment/Plan Admission Diagnosis v-tach Admission Status: Inpatient Order (span 2 midnights) Reason for Inpatient Admission: see below Assessment and Plan v-tach NSTEMI now in sinus s/p defibillration x1 Cardiology consulted, appreciate recs Plan for cath tomorrow Monitor on telemetry Continue Plavix and ASA Lovenox therapeutic dosing IDDMII Continue insulin gtt and try to switch to levemir tonight A1c pending- pt reports last was around 7 ADA diet Advised him to bring in home glucometer to compare readings Acute on CKD Stage 3b Creatinine in August 24.63 2.2 on arrival but improved to 1.86 this AM Continue IVF overnight to help improve creatinine in prep for cath tomorrow PAULY Obesity Chronic pain no acute needs DVT ppx: Lovenox Diagnosis/Problems Diagnosis/Problems (1) Ventricular tachycardia Status: Acute (2) Acute kidney injury Status: Acute (3) Hyperglycemia Status: Acute (4) COPD (chronic obstructive pulmonary disease) Status: Chronic Qualifiers: Emphysema type: unspecified (5) Essential (primary) hypertension Status: Chronic (6) Insulin dependent diabetes mellitus Status: Chronic (7) Chronic back pain Status: Chronic (8) Prophylactic measure OUSMANE RODRIGUES MD Dec 15, 2020 09:08
[2020-12-15] MEDS: PANTOPRAZOLE 40 MG (PROTONIX) TAB PO SCH (09:40)
--- NOTE | 2020-12-15 10:32 | Pulmonary Progress Note ---
WILBER CABEZAS MED STUDENT 12/15/20 1032: Subjective Date Seen by a Provider: Dec 15, 2020 Time Seen by a Provider: 07:35 Subjective/Events-last exam Patient alert and oriented x 4. Denies chest pain, SOB, fluttering, palpitations, dizziness, nausea, sweating, and headache. Reports feeling "fine" and has no complaints currently. Plan for possible cardiac cath tomorrow. Monitor shows NSR. Review of Systems General: No Chills, No Night Sweats HEENT: No Head Aches, No Visual Changes Pulmonary: No Dyspnea, No Cough Cardiovascular: No: Chest Pain, Palpitations, Orthopnea, Edema, Lt Headedness Gastrointestinal: No: Nausea, Vomiting, Abdominal Pain, Diarrhea, Constipation Genitourinary: No Dysuria, No Frequency, No Hematuria Musculoskeletal: No: neck pain, back pain Neurological: No: Weakness, Numbness, Change in speech, Confusion Sepsis Event Evaluation Height, Weight, BMI Height: 6'1.00" Weight: 286lbs. 6.0oz. 131.110808ma; 36.79 BMI Method:Stated Exam Exam Patient acknowledged, consented, and participated in this virtual visit which was conducted using real time audio/video Vital Signs Date Time Temp Pulse Resp B/P (MAP) Pulse Ox O2 Delivery O2 Flow Rate FiO2 12/15/20 08:34 36.0 12/15/20 07:56 98 Nasal Cannula 2.00 12/15/20 07:00 74 12/15/20 06:14 75 32 123/73 97 Nasal Cannula 2.00 12/15/20 05:00 76 10 186/126 99 Nasal Cannula 2.00 12/15/20 04:15 36.2 12/15/20 04:00 75 12 178/83 98 Nasal Cannula 2.00 12/15/20 04:00 98 Nasal Cannula 2.00 12/15/20 03:22 79 10 156/89 98 Nasal Cannula 2.00 12/15/20 02:45 80 16 170/83 98 Nasal Cannula 2.00 12/15/20 02:30 82 30 165/78 98 Nasal Cannula 2.00 12/15/20 02:15 85 9 162/86 98 Nasal Cannula 2.00 12/15/20 02:10 35.8 86 14 148/76 99 Nasal Cannula 2.00 12/15/20 02:00 Nasal Cannula 2.00 12/15/20 01:56 90 12/14/20 23:19 95 Nasal Cannula 2.00 12/14/20 23:19 35.8 108 18 144/89 (107) 95 Room Air I & O 12/15/20 07:00 Intake Total 1000 ml Output Total 1050 ml Balance -50 ml Height & Weight Height: 6'1.00" Weight: 286lbs. 6.0oz. 131.309688zw; 36.79 BMI Method:Stated General Appearance: No Apparent Distress, WD/WN, Obese HEENT: PERRL/EOMI, Moist Mucous Membranes Neck: Full Range of Motion, Normal Inspection, Non Tender, Supple; No JVD Respiratory: Lungs Clear, Normal Breath Sounds, No Accessory Muscle Use, No Respiratory Distress; No Crackles, No Rhonci, No Stridor, No Wheezing Cardiovascular: Regular Rate, Rhythm, No Edema, No Murmur, Normal Peripheral Pulses Capillary Refill: Less Than 3 Seconds Peripheral Pulses: 2+ Dorsalis Pedis (R), 2+ Left Dors-Pedis (L), 2+ Radial Pulses (R), 2+ Radial Pulses (L) Gastrointestinal: normal bowel sounds, non tender, soft Extremity: Normal Capillary Refill, Normal Inspection, Non Tender, No Calf Tenderness, No Pedal Edema Neurologic/Psychiatric: Alert, Oriented x3, No Motor/Sensory Deficits, Normal Mood/Affect Skin: Normal Color, Warm/Dry Lymphatic: No Adenopathy Results Lab Laboratory Tests 12/14/20 23:23 12/15/20 03:05 Assessment/Plan Assessment/Plan V-Tach -converted to SR after defib x 1 -continue to monitor on tele -cards following NSTEMI -elevated troponin -cardiology following -toprolol 50mg po BID -plavix and ASA -echo -plan for cath tomorrow per cards note Hyperglycemia -sugar over 600 on admission -initial co2 18 and gap 15 now 21 and 12 -no beta hydroxybutyrate drawn -see plan below Hyperkalemia -k 5.2 -continue to monitor Anticoagulated -lovenox 120mg BID Acute on chronic renal failure -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 [address] Progress Note - Med Stdnt PULM Patient Name: Yusra Jones Unit Number: [id number] Date of : 12/21/1952 Patient Status: Admitted Inpatient Attending Doctor: Angella Eden MD WILBER CABEZAS MED STUDENT 12/15/20 0827: Subjective Date Seen by a Provider: Dec 15, 2020 Time Seen by a Provider: 06:45 Subjective/Events-last exam Patient awake and alert in room. States is having back pain and can't get comfortable. Becomes anxious and tearful stating the nurses are displeased with taking care of her. Vitals stable per monitor. Remains on cardizem drip at 20mg/hr. Review of Systems General: No Chills, No Night Sweats HEENT: No Head Aches, No Visual Changes Pulmonary: No Dyspnea, No Cough Cardiovascular: No: Chest Pain, Palpitations Gastrointestinal: Nausea; No: Vomiting, Abdominal Pain Genitourinary: No Dysuria, No Frequency; Other (farooq catheter) Musculoskeletal: back pain; No: neck pain Neurological: No: Weakness, Numbness Sepsis Event Evaluation Height, Weight, BMI Height: 5'5.00" Weight: 276lbs. oz. 125.097221bf; 43.29 BMI Method:Stated Focused Exam Lactate Level 12/12/20 21:45: Lactic Acid Level 1.54 Exam Exam Patient acknowledged, consented, and participated in this virtual visit which was conducted using real time audio/video Vital Signs Date Time Temp Pulse Resp B/P (MAP) Pulse Ox O2 Delivery O2 Flow Rate FiO2 12/15/20 06:00 130 21 131/91 98 Nasal Cannula 2.00 12/15/20 05:48 99 12/15/20 05:00 112 33 144/98 99 Nasal Cannula 2.00 12/15/20 04:15 98 Nasal Cannula 2.00 12/15/20 04:00 129 35 139/98 100 Nasal Cannula 2.00 12/15/20 03:00 87 13 103/89 91 Nasal Cannula 2.00 12/15/20 02:51 36.5 Nasal Cannula 2.00 12/15/20 02:15 111 15 137/81 91 Nasal Cannula 2.00 12/15/20 02:00 92 12/15/20 01:00 108 12/15/20 01:00 108 10 123/70 95 Nasal Cannula 2.00 12/15/20 00:00 126 117/86 99 Nasal Cannula 2.00 12/14/20 23:49 36.7 Nasal Cannula 2.00 12/14/20 23:48 99 Nasal Cannula 2.00 12/14/20 23:00 126 18 128/91 99 Nasal Cannula 2.00 12/14/20 22:10 118 12/14/20 22:00 125 29 144/79 98 Nasal Cannula 2.00 12/14/20 21:00 125 32 126/80 97 Nasal Cannula 2.00 12/14/20 20:32 126 12/14/20 20:00 97 Nasal Cannula 2.00 12/14/20 20:00 128 132/90 97 Nasal Cannula 2.00 12/14/20 19:15 128 13 124/78 97 Nasal Cannula 2.00 12/14/20 19:00 128 12/14/20 19:00 36.6 Nasal Cannula 2.00 12/14/20 18:00 125 6 132/119 95 Nasal Cannula 2.00 12/14/20 17:00 133 36 173/103 98 Nasal Cannula 2.00 12/14/20 16:30 35.9 12/14/20 16:00 130 26 100/84 97 Nasal Cannula 2.00 12/14/20 16:00 98 Nasal Cannula 2.00 12/14/20 15:00 130 31 116/81 98 Nasal Cannula 2.00 12/14/20 14:00 128 5 125/83 100 Nasal Cannula 2.00 12/14/20 14:00 132 12/14/20 13:36 128 12/14/20 13:00 131 13 157/87 100 Nasal Cannula 2.00 12/14/20 12:30 36.3 12/14/20 12:00 98 Nasal Cannula 2.00 12/14/20 12:00 133 13 120/63 97 Nasal Cannula 2.00 12/14/20 11:00 133 45 129/70 96 Nasal Cannula 2.00 12/14/20 10:10 125 130/85 95 Nasal Cannula 2.00 12/14/20 10:00 130 12/14/20 09:00 128 118/74 96 Nasal Cannula 2.00 l I & O 12/15/20 07:00 Intake Total 2505 ml Output Total 2475 ml Balance 30 ml Height & Weight Height: 5'5.00" Weight: 276lbs. oz. 125.287284dy; 43.29 BMI Method:Stated General Appearance: No Apparent Distress, Chronically ill, Obese HEENT: PERRL/EOMI, Moist Mucous Membranes; No Scleral Icterus (L), No Scleral Icterus (R) Neck: Non Tender, Supple, Other (RIJ CVC dressing c/d/i) Respiratory: Lungs Clear, Normal Breath Sounds, No Accessory Muscle Use, No Respiratory Distress Cardiovascular: No Murmur, Irregularly Irregular, Tachycardia Capillary Refill: Less Than 3 Seconds Peripheral Pulses: 2+ Dorsalis Pedis (R), 2+ Left Dors-Pedis (L), 2+ Radial Pulses (R), 2+ Radial Pulses (L) Gastrointestinal: normal bowel sounds, non tender, soft; No distended, No guar ding, No rebound, No tenderness Extremity: Normal Capillary Refill, Non Tender, No Calf Tenderness, No Pedal Edema Neurologic/Psychiatric: Alert, Oriented x3, Other (tearful) Skin: Normal Color, Warm/Dry Lymphatic: No Adenopathy Results Lab Laboratory Tests 12/14/20 02:50 12/15/20 02:35 Assessment/Plan Assessment/Plan Septic shock due to UTI -prelim blood culture staph epidermidis and hominis -prelim urine culture E coli and proteus -Levo off since 12-13. -cefepime and vancomycin dc'd today -meropenem added today -procalcitonin 0.59 12-13 -covid pcr negative S/P BREEZY/Cardioversion today -currently in NSR -cardizem gtt dc'd TOMAS -improved -creatinine 0.69 now -continue to monitor A-fib with RVR -resolved, s/p cardioversion 12-15 -anticoagulated with lovenox 120mg BID -amiodarone -digoxin NSTEMI -troponin I 3rd set up to 0.077 -continue to monitor Seizure disorder -continue keppra HTN H/O GIB H/O cardiac arrest 06/2019 H/O polysubstance abuse -uds positive for oxycodone and benzo's Obesity GI ppx -protonix RIJ CVC: please discontinue today Farooq: ? discontinue today KEYA GRIMM MD 12/15/20 1614: Assessment/Plan Assessment/Plan agree with medical students note, I rounded via camera, physical based on RN and medical student's report Agree with treatment plan Critical Care: Critically Ill Patient Time spent with patient (mins): 25 Supervisory-Addendum Brief Verification & Attestation Participated in pt care: history, physical Personally performed: history Care discussed with: Medical Student, CABLE STRANDER Procedures: n/a Results interpretation: Verified all documentation I rounded with RN and medical student thru video, Agree with treatment plan, Physical findings are those reported to me by RN and medical student WILBER CABEZAS MED STUDENT Dec 15, 2020 08:27 KEYA GRIMM MD Dec 15, 2020 16:14 Addendum: KEYA GRIMM MD on 12/15/20 @ 16:15 Critical Care: Critically Ill Patient Supervisory-Addendum Brief Verification & Attestation Participated in pt care: history, physical Personally performed: exam, history Care discussed with: Medical Student Procedures: n/a Results interpretation: Verified all documentation [place] [address] [address] Progress Note - Med Stdnt PULM Patient Name: Yusra Jones Unit Number: [id number] Date of : 12/21/1952 Patient Status: Admitted Inpatient Attending Doctor: Angella Eden MD WILBER CABEZAS MED STUDENT 12/15/20 0827: Subjective Date Seen by a Provider: Dec 15, 2020 Time Seen by a Provider: 06:45 Subjective/Events-last exam Patient awake and alert in room. States is having back pain and can't get comfor table. Becomes anxious and tearful stating the nurses are displeased with taking care of her. Vitals stable per monitor. Remains on cardizem drip at 20mg/hr. Review of Systems General: No Chills, No Night Sweats HEENT: No Head Aches, No Visual Changes Pulmonary: No Dyspnea, No Cough Cardiovascular: No: Chest Pain, Palpitations Gastrointestinal: Nausea; No: Vomiting, Abdominal Pain Genitourinary: No Dysuria, No Frequency; Other (farooq catheter) Musculoskeletal: back pain; No: neck pain Neurological: No: Weakness, Numbness Sepsis Event Evaluation Height, Weight, BMI Height: 5'5.00" Weight: 276lbs. oz. 125.773556cu; 43.29 BMI Method:Stated Focused Exam Lactate Level 12/12/20 21:45: Lactic Acid Level 1.54 Exam Exam Patient acknowledged, consented, and participated in this virtual visit which was conducted using real time audio/video Vital Signs Date Time Temp Pulse Resp B/P (MAP) Pulse Ox O2 Delivery O2 Flow Rate FiO2 12/15/20 06:00 130 21 131/91 98 Nasal Cannula 2.00 12/15/20 05:48 99 12/15/20 05:00 112 33 144/98 99 Nasal Cannula 2.00 12/15/20 04:15 98 Nasal Cannula 2.00 12/15/20 04:00 129 35 139/98 100 Nasal Cannula 2.00 12/15/20 03:00 87 13 103/89 91 Nasal Cannula 2.00 12/15/20 02:51 36.5 Nasal Cannula 2.00 12/15/20 02:15 111 15 137/81 91 Nasal Cannula 2.00 12/15/20 02:00 92 12/15/20 01:00 108 12/15/20 01:00 108 10 123/70 95 Nasal Cannula 2.00 12/15/20 00:00 126 117/86 99 Nasal Cannula 2.00 12/14/20 23:49 36.7 Nasal Cannula 2.00 12/14/20 23:48 99 Nasal Cannula 2.00 12/14/20 23:00 126 18 128/91 99 Nasal Cannula 2.00 12/14/20 22:10 118 12/14/20 22:00 125 29 144/79 98 Nasal Cannula 2.00 12/14/20 21:00 125 32 126/80 97 Nasal Cannula 2.00 12/14/20 20:32 126 12/14/20 20:00 97 Nasal Cannula 2.00 12/14/20 20:00 128 132/90 97 Nasal Cannula 2.00 12/14/20 19:15 128 13 124/78 97 Nasal Cannula 2.00 12/14/20 19:00 128 12/14/20 19:00 36.6 Nasal Cannula 2.00 12/14/20 18:00 125 6 132/119 95 Nasal Cannula 2.00 12/14/20 17:00 133 36 173/103 98 Nasal Cannula 2.00 12/14/20 16:30 35.9 12/14/20 16:00 130 26 100/84 97 Nasal Cannula 2.00 12/14/20 16:00 98 Nasal Cannula 2.00 12/14/20 15:00 130 31 116/81 98 Nasal Cannula 2.00 12/14/20 14:00 128 5 125/83 100 Nasal Cannula 2.00 12/14/20 14:00 132 12/14/20 13:36 128 12/14/20 13:00 131 13 157/87 100 Nasal Cannula 2.00 12/14/20 12:30 36.3 12/14/20 12:00 98 Nasal Cannula 2.00 12/14/20 12:00 133 13 120/63 97 Nasal Cannula 2.00 12/14/20 11:00 133 45 129/70 96 Nasal Cannula 2.00 12/14/20 10:10 125 130/85 95 Nasal Cannula 2.00 12/14/20 10:00 130 12/14/20 09:00 128 118/74 96 Nasal Cannula 2.00 I & O 12/15/20 07:00 Intake Total 2505 ml Output Total 2475 ml Balance 30 ml Height & Weight Height: 5'5.00" Weight: 276lbs. oz. 125.446664to; 43.29 BMI Method:Stated General Appearance: No Apparent Distress, Chronically ill, Obese HEENT: PERRL/EOMI, Moist Mucous Membranes; No Scleral Icterus (L), No Scleral Icterus (R) Neck: Non Tender, Supple, Other ([facility] CVC dressing c/d/i) Respiratory: Lungs Clear, Normal Breath Sounds, No Accessory Muscle Use, No Respiratory Distress Cardiovascular: No Murmur, Irregularly Irregular, Tachycardia Capillary Refill: Less Than 3 Seconds Peripheral Pulses: 2+ Dorsalis Pedis (R), 2+ Left Dors-Pedis (L), 2+ Radial Pulses (R), 2+ Radial Pulses (L) Gastrointestinal: normal bowel sounds, non tender, soft; No distended, No guarding, No rebound, No tenderness Extremity: Normal Capillary Refill, Non Tender, No Calf Tenderness, No Pedal Edema Neurologic/Psychiatric: Alert, Oriented x3, Other (tearful) Skin: Normal Color, Warm/Dry Lymphatic: No Adenopathy Results Lab Laboratory Tests 12/14/20 02:50 12/15/20 02:35 Assessment/Plan Assessment/Plan Septic shock due to UTI -prelim blood culture staph epidermidis and hominis -prelim urine culture E coli and proteus -Levo off since 12-13. -cefepime and vancomycin dc'd today -meropenem added today -procalcitonin 0.59 12-13 -covid pcr negative S/P BREEZY/Cardioversion today -currently in NSR -cardizem gtt dc'd TOMAS -improved -creatinine 0.69 now -continue to monitor A-fib with RVR -resolved, s/p cardioversion 12-15 -anticoagulated with lovenox 120mg BID -amiodarone -digoxin NSTEMI -troponin I 3rd set up to 0.077 -continue to monitor Seizure disorder -continue keppra HTN H/O GIB H/O cardiac arrest 06/2019 H/O polysubstance abuse -uds positive for oxycodone and benzo's Obesity GI ppx -protonix RIJ CVC: please discontinue today Farooq: ? discontinue today KEYA GRIMM MD 12/15/20 1614: Assessment/Plan Assessment/Plan agree with medical students note, I rounded via camera, physical based on RN and medical student's report Agree with treatment plan Critical Care: Critically Ill Patient Time spent with patient (mins): 25 Supervisory-Addendum Brief Verification & Attestation Participated in pt care: history, physical Personally performed: history Care discussed with: Medical Student, CABLE STRANDER Procedures: n/a Results interpretation: Verified all documentation I rounded with RN and medical student thru video, Agree with treatment plan, Physical findings are those reported to me by RN and medical student WILBRE CABEZAS MED STUDENT Dec 15, 2020 08:27 KEYA GRIMM MD Dec 15, 2020 16:14 Addendum: KEYA GRIMM MD on 12/15/20 @ 16:15 WILBER CABEZAS MED STUDENT Dec 15, 2020 10:32 KEYA GRIMM MD Dec 15, 2020 16:30
[2020-12-15] MEDS: inSUlin ASPART (NovoLOG) 1 UNIT/0.01 ML (CHARGE PER UNIT) SC SCH ×2 (11:24→16:16)
[2020-12-15] MEDS ORDERED: FLUT16SP22 NSEACH (12:14)
[2020-12-15] MEDS ORDERED: ALBU2.5V4 NEB (12:14)
[2020-12-15] MEDS ORDERED: PRENATAL PO (12:14)
[2020-12-15] MEDS ORDERED: FURO20TA4 PO (12:14)
[2020-12-15] MEDS ORDERED: ASPI-1238 PO (12:14)
[2020-12-15] MEDS ORDERED: INSU100I14 SQ (12:14)
[2020-12-15] MEDS ORDERED: MORP60TA69 PO (12:14)
[2020-12-15] MEDS ORDERED: PANT40TA52 PO (12:14)
[2020-12-15] MEDS ORDERED: FOLIC PO (12:14)
[2020-12-15] MEDS ORDERED: OXYC1TAB11 PO (12:14)
[2020-12-15] MEDS ORDERED: DIAZ2TAB2 PO (12:14)
[2020-12-15] MEDS ORDERED: BIMA2.5D4 OU (12:16)
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
[2020-12-15] MEDS ORDERED: AMLO-250 PO (12:17)
[2020-12-15] MEDS ORDERED: oxyCODONE/APAP 5/325MG (PERCOCET 5) TABLET PO PRN (14:45)
[2020-12-15] MEDS ORDERED: CYCLOBENZAPRINE 10 MG (FLEXERIL) TAB PO PRN (15:30)
[2020-12-15] MEDS: MECLIZINE 25 MG (ANTIVERT) TAB PO SCH ×2 (16:18→20:35)
[2020-12-15] MEDS: morphine ER 30 MG (MS CONTIN) TAB PO SCH (16:18)
[2020-12-15] MEDS: ENOXAPARIN 300 MG/3 ML (LOVENOX) MULTI-DOSE VIAL SQ SCH (18:01)
[2020-12-15] MEDS: GABAPENTIN 600 MG (NEURONTIN) TAB PO SCH (20:35)
[2020-12-15] MEDS: AMITRIPTYLINE 50 MG (ELAVIL) TAB PO SCH (20:35)
[2020-12-15] MEDS: ETODOLAC 300 MG (LODINE) CAP PO SCH (20:35)
[2020-12-15] MEDS: DIAZEPAM 2 MG (VALIUM) TAB PO SCH (20:35)
[2020-12-15] MEDS: RT--FLUTICASONE/SALMETEROL 232-14 (AIRDUO RespiCLICK) IH SCH (22:45)
[2020-12-16] MEDS: morphine ER 30 MG (MS CONTIN) TAB PO SCH ×2 (04:00→16:00)
[2020-12-16 04:38] LABS: BASOPHILS # (AUTO) 0.1 10^3/uL (0.0-0.1); BASOPHILS % (AUTO) 1 % (0-10); EOSINOPHILS # (AUTO) 0.4 10^3/uL (0.0-0.3); EOSINOPHILS % (AUTO) 4 % (0-10); HEMATOCRIT 45 % (40-54); LYMPHOCYTES # (AUTO) 3.6 10^3/uL (1.0-4.0); LYMPHOCYTES % (AUTO) 35 % (12-44); MEAN CORPUSCULAR HEMOGLOBIN 27 pg (25-34); MEAN CORPUSCULAR HGB CONC 31 g/dL (32-36); MEAN CORPUSCULAR VOLUME 87 fL (80-99); MONOCYTES # (AUTO) 1.1 10^3/uL (0.0-1.0); MONOCYTES % (AUTO) 10 % (0-12); NEUTROPHILS # (AUTO) 5.2 10^3/uL (1.8-7.8); NEUTROPHILS % (AUTO) 50 % (42-75); PLATELET COUNT 187 10^3/uL (130-400); WHITE BLOOD COUNT 10.5 10^3/uL (4.3-11.0)
[2020-12-16 04:58] LABS: POTASSIUM 5.1 MMOL/L (3.6-5.0)
[2020-12-16 05:00] LABS: CALCIUM 8.9 MG/DL (8.5-10.1)
[2020-12-16 05:01] LABS: TOTAL PROTEIN 6.8 GM/DL (6.4-8.2)
[2020-12-16 05:03] LABS: BILIRUBIN,TOTAL 0.5 MG/DL (0.1-1.0)
[2020-12-16 05:04] LABS: PHOSPHORUS 3.2 MG/DL (2.3-4.7)
[2020-12-16 05:05] LABS: CREATININE SERUM 1.38 MG/DL (0.60-1.30)
[2020-12-16 05:08] LABS: MAGNESIUM 2.1 MG/DL (1.6-2.4)
[2020-12-16 05:18] LABS: PROTHROMBIN TIME PATIENT 13.9 SEC (12.2-14.7)
[2020-12-16] MEDS: ENOXAPARIN 300 MG/3 ML (LOVENOX) MULTI-DOSE VIAL SQ SCH (06:00)
[2020-12-16] MEDS: RT--FLUTICASONE/SALMETEROL 232-14 (AIRDUO RespiCLICK) IH SCH ×2 (06:49→21:08)
[2020-12-16] MEDS ORDERED: HEParin (CATH LAB) 2,000 ML IV ONE (07:15)
[2020-12-16] MEDS ORDERED: LIDOCAINE 1% INJ 20 ML 20 ML VIAL ONE (07:15)
[2020-12-16] MEDS ORDERED: fentaNYL INJ 100 MCG/2 ML AMP ONE (07:16)
[2020-12-16] MEDS ORDERED: NS IV 1000 ML 1,000 ML ONE (07:16)
[2020-12-16] MEDS ORDERED: MIDAZOLAM 5 MG/5 ML (VERSED) VIAL ONE (07:17)
[2020-12-16] MEDS: inSUlin ASPART (NovoLOG) 1 UNIT/0.01 ML (CHARGE PER UNIT) SC SCH ×3 (07:59→18:22)
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
--- NOTE | 2020-12-16 08:20 | Progress Note - Hospitalist ---
Subjective HPI/CC On Admission Date Seen by Provider: Dec 16, 2020 Time Seen by Provider: 08:12 Patient 65-year-old patient with past medical history of insulin-dependent diabetes, hypertension, hyperlipidemia, obstructive sleep apnea who presented to the emergency department due to outpatients. He states he was sitting at home not doing much anything and back was trying to fall asleep when asked about 10 minutes of dozing he woke up with his heart racing. He states he had some chest pain that was mild that radiated to his jaw and his neck. He became very diaphoretic. He was quite nauseous. He called EMS and on their arrival he was found to be in sustained ventricular tachycardia. He was defibrillated x1 and returned to sinus rhythm. He was admitted to the ICU for further monitoring. He has had elevated troponin as well. This morning he reports feeling better and near normal. He was also found to be very hyperglycemic and started on insulin drip. He states that his glucometer at home reads as mostly in the 150s to 300s but that he checked" presenting here and it was in the 300s and on arrival it was in the 600s. Subjective/Events-last exam Pt reports doing well. No further episodes overnight. Plan is for cath today. Objective Exam Vital Signs Vital Signs Date Time Temp Pulse Resp B/P (MAP) Pulse Ox O2 Delivery O2 Flow Rate FiO2 12/16/20 12:55 80 12/16/20 11:00 9 96 Nasal Cannula 3.00 12/16/20 00:00 35.6 Capillary Refill : Less Than 3 Seconds General Appearance: No Apparent Distress, Chronically ill, Obese Respiratory: Lungs Clear, No Respiratory Distress Cardiovascular: Regular Rate, Rhythm, No Murmur Neurologic/Psychiatric: Alert, Oriented x3 Results/Procedures Lab Laboratory Tests 12/16/20 04:20 Patient resulted labs reviewed. Imaging: Reviewed Imaging Report Assessment/Plan Assessment and Plan Assess & Plan/Chief Complaint v-tach NSTEMI now in sinus s/p defibillration x1 Cardiology consulted, appreciate recs Plan for cath today Monitor on telemetry Continue Plavix and ASA Lovenox therapeutic dosing for NSTEMI IDDMII Continue bolus insulin A1c 9.8 ADA diet Advised him to bring in home glucometer to compare readings Acute on CKD Stage 3b Creatinine 1.3 today PAULY Obesity Chronic pain no acute needs DVT ppx: Lovenox Critical Care Critically Ill Patient Diagnosis/Problems Diagnosis/Problems (1) Ventricular tachycardia Status: Acute (2) Acute kidney injury Status: Acute (3) Hyperglycemia Status: Acute (4) COPD (chronic obstructive pulmonary disease) Status: Chronic Qualifiers: Emphysema type: unspecified (5) Essential (primary) hypertension Status: Chronic (6) Insulin dependent diabetes mellitus Status: Chronic (7) Chronic back pain Status: Chronic (8) Prophylactic measure OUSMANE RODRIGUES MD Dec 16, 2020 08:19
[2020-12-16] MEDS ORDERED: PATIENT MAY USE OWN MEDS, ALL PO SCH (09:00)
[2020-12-16] MEDS ORDERED: amLODIPine 5 MG (NORVASC) TAB PO SCH (09:00)
[2020-12-16] MEDS: DIAZEPAM 2 MG (VALIUM) TAB PO SCH ×3 (09:00→20:53)
[2020-12-16] MEDS ORDERED: CLOPIDOGREL 75 MG (PLAVIX) TABLET PO SCH (09:00)
--- NOTE | 2020-12-16 09:15 | CARDIAC CATHETERIZATION ---
DATE OF SERVICE: 12/16/2020 CARDIAC CATHETERIZATION REPORT The patient is a 65-year-old gentleman, who has multiple coronary artery disease risk factors and who presented with wide complex tachycardia. Cardiac catheterization was carried out after having obtained an informed consent. DESCRIPTION OF PROCEDURE: He was brought to the cardiac catheterization laboratory. Vigorous perioperative hydration was started several hours prior to cardiac catheterization, continued during and after cardiac catheterization. This was to reduce risk of contrast nephropathy because the patient is known to have chronic kidney disease stage III. The right groin was prepared and draped in the usual sterile fashion. Lidocaine 1% was used for local anesthesia. Modified Seldinger technique was used to advance a 5-Swazi sheath in right femoral artery, 5-Swazi JL4 catheter was used for left coronary angiography, 5-Swazi JR4 catheter for right coronary angiography, 5-Swazi pigtail catheter was used for left heart catheterization and left ventricular angiography. Angiography of the right femoral artery was carried out through the sheath and a Mynx was used to achieve hemostasis following sheath removal. He tolerated the procedure well. HEMODYNAMICS: Left ventricular end-diastolic pressure following coronary angiography was 28 mmHg. There was no significant pressure gradient on pullback across the aortic valve. Ascending aortic pressure was 127/72 with a mean of 73 mmHg. CORONARY ANGIOGRAPHY: Left main coronary artery, left anterior descending artery, left circumflex artery, right coronary artery do not exhibit angiographically significant disease. Right coronary artery is dominant, in which the right ventricular branch continues as the posterior descending branch. Minimal coronary plaques are seen. LEFT VENTRICULAR ANGIOGRAPHY: Left ventricular angiography was carried out in the right anterior oblique projection. Global left ventricular systolic function normal. No regional wall motion abnormalities are identified in this view. Left ventricular ejection fraction is approximately 60% to 65%. CONCLUSIONS: 1. No angiographically significant disease. Only minimal coronary plaques are seen. 2. Normal global left ventricular systolic function with ejection fraction of 60% to 65%. 3. Elevated left ventricular end-diastolic pressure (28 mmHg). DISCUSSION AND RECOMMENDATIONS: Treatment will be with aspirin. Due to paroxysmal atrial fibrillation with rapid ventricular response for initiating therapy with beta blockers and amiodarone. Eliquis is being added to the regimen for stroke prophylaxis. Further recommendations will be based on his hospital course. Job ID: [id number] DocumentID: [id number] Dictated Date: 12/16/2020 08:56:56 [employer] Date: 12/16/2020 09:14:08 Dictated By: RAMON JOYCE MD, MA, FACP, FACC,
[2020-12-16] MEDS: ASPIRIN E.C. 81 MG (ECOTRIN) TAB PO SCH (12:08)
[2020-12-16] MEDS: meTOprolol TARTRATE 50 MG (LOPRESSOR) TAB PO SCH ×2 (12:08→20:54)
[2020-12-16] MEDS: GABAPENTIN 600 MG (NEURONTIN) TAB PO SCH ×3 (12:09→20:53)
[2020-12-16] MEDS: ETODOLAC 300 MG (LODINE) CAP PO SCH ×2 (12:09→20:54)
[2020-12-16] MEDS: AMIODARONE 200 MG (CORDARONE) TAB PO SCH ×2 (12:10→20:54)
[2020-12-16] MEDS: MECLIZINE 25 MG (ANTIVERT) TAB PO SCH ×4 (12:10→20:55)
[2020-12-16] MEDS: PANTOPRAZOLE 40 MG (PROTONIX) TAB PO SCH (12:10)
[2020-12-16] MEDS: NS IV 1000 ML 1,000 ML IV SCH ×2 (17:16→19:00)
[2020-12-16] MEDS: FLUTICASONE NASAL SPRAY (FLONASE) 16 GM BTL NS SCH (17:16)
[2020-12-16] MEDS: AMITRIPTYLINE 50 MG (ELAVIL) TAB PO SCH (20:54)
[2020-12-16] MEDS: APIXABAN 5 MG (ELIQUIS) TABLET PO SCH (20:54)
[2020-12-17 04:15] LABS: BASOPHILS % (AUTO) 1 % (0-10); EOSINOPHILS # (AUTO) 0.2 10^3/uL (0.0-0.3); EOSINOPHILS % (AUTO) 3 % (0-10); HEMATOCRIT 40 % (40-54); HEMOGLOBIN 12.4 g/dL (13.3-17.7); LYMPHOCYTES # (AUTO) 1.9 10^3/uL (1.0-4.0); LYMPHOCYTES % (AUTO) 27 % (12-44); MEAN CORPUSCULAR HEMOGLOBIN 27 pg (25-34); MEAN CORPUSCULAR HGB CONC 31 g/dL (32-36); MEAN CORPUSCULAR VOLUME 88 fL (80-99); MEAN PLATELET VOLUME 11.9 fL (9.0-12.2); MONOCYTES # (AUTO) 0.9 10^3/uL (0.0-1.0); MONOCYTES % (AUTO) 13 % (0-12); NEUTROPHILS # (AUTO) 4.1 10^3/uL (1.8-7.8); NEUTROPHILS % (AUTO) 57 % (42-75); PLATELET COUNT 148 10^3/uL (130-400); WHITE BLOOD COUNT 7.2 10^3/uL (4.3-11.0)
[2020-12-17 04:34] LABS: ALBUMIN 3.6 GM/DL (3.2-4.5); POTASSIUM 4.4 MMOL/L (3.6-5.0)
[2020-12-17 04:36] LABS: CALCIUM 8.9 MG/DL (8.5-10.1)
[2020-12-17 04:37] LABS: TOTAL PROTEIN 6.2 GM/DL (6.4-8.2)
[2020-12-17 04:39] LABS: BILIRUBIN,TOTAL 0.5 MG/DL (0.1-1.0)
[2020-12-17 04:41] LABS: CREATININE SERUM 1.18 MG/DL (0.60-1.30)
[2020-12-17] MEDS: morphine ER 30 MG (MS CONTIN) TAB PO SCH (04:44)
[2020-12-17] MEDS: NS IV 1000 ML 1,000 ML IV SCH (04:45)
[2020-12-17] MEDS: GABAPENTIN 600 MG (NEURONTIN) TAB PO SCH (08:34)
[2020-12-17] MEDS: DIAZEPAM 2 MG (VALIUM) TAB PO SCH (08:34)
[2020-12-17] MEDS: ETODOLAC 300 MG (LODINE) CAP PO SCH (08:34)
[2020-12-17] MEDS: PANTOPRAZOLE 40 MG (PROTONIX) TAB PO SCH (08:34)
[2020-12-17] MEDS: MECLIZINE 25 MG (ANTIVERT) TAB PO SCH (08:34)
[2020-12-17] MEDS: AMIODARONE 200 MG (CORDARONE) TAB PO SCH (08:35)
[2020-12-17] MEDS: ASPIRIN E.C. 81 MG (ECOTRIN) TAB PO SCH (08:35)
[2020-12-17] MEDS: APIXABAN 5 MG (ELIQUIS) TABLET PO SCH (08:35)
[2020-12-17] MEDS: meTOprolol TARTRATE 50 MG (LOPRESSOR) TAB PO SCH (08:36)
[2020-12-17] MEDS: FLUTICASONE NASAL SPRAY (FLONASE) 16 GM BTL NS SCH (08:36)
[2020-12-17] MEDS: inSUlin ASPART (NovoLOG) 1 UNIT/0.01 ML (CHARGE PER UNIT) SC SCH ×2 (08:37→14:46)
--- NOTE | 2020-12-17 09:30 | Discharge Summary ---
Diagnosis/Chief Complaint Date of Admission Dec 15, 2020 at 00:51 Date of Discharge Admission Diagnosis v-tach Primary Care Elijah Nuno MD Discharge Diagnosis (1) Ventricular tachycardia Status: Acute (2) Acute kidney injury Status: Acute (3) Hyperglycemia Status: Acute (4) COPD (chronic obstructive pulmonary disease) Status: Chronic (5) Essential (primary) hypertension Status: Chronic (6) Insulin dependent diabetes mellitus Status: Chronic (7) Chronic back pain Status: Chronic (8) Prophylactic measure Discharge Summary Procedures/Consulations Cardiology- Dr Jensen Discharge Physical Exam Allergies: Coded Allergies: No Known Drug Allergies (Unverified , 01/07/19) Vitals & I&Os Vital Signs Date Time Temp Pulse Resp B/P (MAP) Pulse Ox O2 Delivery O2 Flow Rate FiO2 12/17/20 12:00 36.0 12/17/20 12:00 63 129/53 95 Nasal Cannula 3.00 12/17/20 11:00 12 General Appearance: No Apparent Distress, Chronically ill, Obese Respiratory: Lungs Clear, No Respiratory Distress Cardiovascular: Regular Rate, Rhythm, No Murmur Neurologic/Psychiatric: Alert, Oriented x3 Hospital Course Patient was admitted to the hospital due to concern for ventricular tachycardia. He was defibrillated in the field by EMS. Cardiology was consulted and felt this to be more consistent with atrial fibrillation with rapid ventricular rate. He underwent cardiac cath with no intervention. He was started on amiodarone and metoprolol and his heart rate was well controlled in sinus rhythm. He was tested for oxygen prior to discharge and found to have a 2 L continuous need which was arranged. He is to follow-up with Dr. Nuno to follow-up this hospital stay and with Dr. Carpio in 2 weeks who will plan to wean amiodarone if able. He was started on Eliquis for stroke prophylaxis and given a anticoagulation education. Labs (last 24 hrs) Laboratory Tests 12/16/20 17:35: Glucometer 85 12/16/20 20:15: Glucometer 155H 12/17/20 03:45: White Blood Count 7.2, Red Blood Count 4.61, Hemoglobin 12.4L, Hematocrit 40, Mean Corpuscular Volume 88, Mean Corpuscular Hemoglobin 27, Mean Corpuscular Hemoglobin Concent 31L, Red Cell Distribution Width 13.7, Platelet Count 148, Mean Platelet Volume 11.9, Immature Granulocyte % (Auto) 0, Neutrophils (%) (Auto) 57, Lymphocytes (%) (Auto) 27, Monocytes (%) (Auto) 13H, Eosinophils (%) (Auto) 3, Basophils (%) (Auto) 1, Neutrophils # (Auto) 4.1, Lymphocytes # (Auto) 1.9, Monocytes # (Auto) 0.9, Eosinophils # (Auto) 0.2, Basophils # (Auto) 0.0, Immature Granulocyte # (Auto) 0.0, Sodium Level 136, Potassium Level 4.4, Chloride Level 104, Carbon Dioxide Level 23, Anion Gap 9, Blood Urea Nitrogen 16, Creatinine 1.18, Estimat Glomerular Filtration Rate 62, BUN/Creatinine Ratio 14, Glucose Level 245H, Calcium Level 8.9, Corrected Calcium 9.2, Phosphorus Level 3.0, Magnesium Level 2.0, Total Bilirubin 0.5, Aspartate Amino Transf ( T/SGOT) 40H, Alanine Aminotransferase (ALT/SGPT) 49, Alkaline Phosphatase 77, Total Protein 6.2L, Albumin 3.6 12/17/20 11:17: Glucometer 186H Microbiology 12/15/20 MRSA Screen - Final, Complete MRSA not isolated Patient resulted labs reviewed. Pending Labs Laboratory Tests 12/17/20 11:17: Glucometer 186 Imaging: Reviewed Imaging Report Discussion & Recommendations Discharge Planning: >30 minutes discharge planning Discharge Home Medications: Active Scripts Active Eliquis (Apixaban) 5 Mg Tablet 5 Mg PO BID Amiodarone HCl 200 Mg Tablet 400 Mg PO BID Metoprolol Succinate 25 Mg Tab.er.24h 25 Mg PO BID Reported Amlodipine Besylate 5 Mg Tablet 5 Mg PO DAILY LAST FILLED 06-16-2020 #90/90 DAY SUPPLY Lumigan (Bimatoprost) 2.5 Ml Drops 1 Drop OU HS Aspirin EC (Aspirin) 81 Mg Tablet.dr 81 Mg PO DAILY Novolog Flexpen (Insulin Aspart) 300 Units/3 Ml Solution 25 Units SQ AC Pantoprazole Sodium 40 Mg Tablet.dr 40 Mg PO DAILY Fluticasone Propionate 16 Gm [place].susp 2 [place] NSEACH DAILY Furosemide 20 Mg Tablet 20 Mg PO DAILY Albuterol Sulfate 2.5 Mg/3 Ml Vial.neb 3 Ml NEB Q6H PRN Oxycodone-Acetaminophen 5-325 (Oxycodone HCl/Acetaminophen) 1 Each Tablet 1 Each PO Q4H PRN Morphine Sulfate ER (Morphine Sulfate) 60 Mg Tablet.er 60 Mg PO Q12H Diazepam 2 Mg Tablet 2 Mg PO TID [ W/ Folic] 1 Each PO DAILY Cinnamon (Cinnamon Bark) 500 Mg Capsule 500 Mg PO DAILY Vitamin B-12 (Cyanocobalamin (Vitamin B-12)) 500 Mcg Lozenge 500 Mcg PO DAILY Levemir (Insulin Determir) 1,000 Units/10 Ml Soln 40 Units SQ BID Ferosul (Ferrous Sulfate) 325 Mg Tablet 325 Mg PO DAILY Ventolin Hfa (Albuterol Sulfate) 18 Gm Hfa.aer.ad 1-2 Puff IH QID PRN Glimepiride 4 Mg Tablet 4 Mg PO BID WITH MEALS Diclofenac Sodium 75 Mg Tablet.dr 75 Mg PO BID Symbicort 160-4.5 Mcg Inhaler (Budesonide/Formoterol Fumarate) 10.2 Gm Hfa.aer.ad 2 Puff IH BID Meclizine HCl 25 Mg Tablet 12.5 Mg PO QID TAKES 1/2 OF A (25 MG) TABLET Amitriptyline HCl 50 Mg Tablet 50 Mg PO HS Cyclobenzaprine HCl 10 Mg Tablet 10 Mg PO TID PRN Gabapentin 600 Mg Tablet 600 Mg PO TID Instructions to patient/family Please see electronic discharge instructions given to patient. Problem Qualifiers (1) COPD (chronic obstructive pulmonary disease): Emphysema type: unspecified OUSMANE RODRIGUES MD Dec 17, 2020 09:29
--- NOTE | 2020-12-17 09:37 | Discharge Inst-Simple/Standard ---
Discharge Inst-Standard Patient Instructions/Follow Up Plan of Care/Instructions/FU: Please continue to take your medications as written. Please follow up with your primary care doctor to follow up this hospital stay. Activity as Tolerated: Yes Discharge Diet: ADA Diet, Cardiac Diet Return to The Hospital For: Chest pain, racing heart rate, shortness of breath, fever, if you feel you are getting worse. OUSMANE RODRIGUES MD Dec 17, 2020 09:36
[2020-12-17] MEDS ORDERED: AMIO200T6 PO (09:40)
[2020-12-17] MEDS ORDERED: APIX5TAB PO (09:40)
[2020-12-17] MEDS ORDERED: MTP25TSR PO (09:40)
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
[2020-12-17] MEDS: RT--FLUTICASONE/SALMETEROL 232-14 (AIRDUO RespiCLICK) IH SCH (11:19)
--- NOTE | 2020-12-17 13:40 | Pulmonary Progress Note ---
NAYELI URBAN MED STUDENT 12/17/20 1340: Subjective Date Seen by a Provider: Dec 17, 2020 Time Seen by a Provider: 06:55 Subjective/Events-last exam Michael states he is doing well this morning. He denies new chest pain, abdominal pain, palpitations, nausea, leg pain. He reports feeling short of breath at night due to his sleep apnea. RN noted he frequently pulled off his NC while asleep and desaturated to the 80's. Sepsis Event Evaluation Height, Weight, BMI Height: 6'1.00" Weight: 286lbs. 6.0oz. 131.538935bv; 36.79 BMI Method:Stated Exam Exam Patient acknowledged, consented, and participated in this virtual visit which was conducted using real time audio/video Vital Signs Date Time Temp Pulse Resp B/P (MAP) Pulse Ox O2 Delivery O2 Flow Rate FiO2 12/17/20 12:00 36.0 12/17/20 11:19 96 Nasal Cannula 3.00 12/17/20 11:00 61 12 125/66 96 Nasal Cannula 3.00 12/17/20 10:00 61 13 135/69 98 Nasal Cannula 3.00 12/17/20 09:00 64 21 126/89 93 Nasal Cannula 3.00 12/17/20 08:00 63 34 90 Nasal Cannula 3.00 12/17/20 07:00 59 10 93 Nasal Cannula 3.00 12/17/20 07:00 61 12/17/20 06:00 66 16 94 Nasal Cannula 3.00 12/17/20 05:00 64 12 127/58 95 Nasal Cannula 3.00 12/17/20 04:00 36.1 12/17/20 04:00 96 Nasal Cannula 3.00 12/17/20 04:00 61 14 136/73 96 Nasal Cannula 3.00 12/17/20 03:00 68 15 123/69 93 Nasal Cannula 3.00 12/17/20 02:00 68 15 136/65 96 Nasal Cannula 3.00 12/17/20 01:00 73 20 123/92 97 Nasal Cannula 3.00 12/17/20 01:00 73 12/17/20 00:00 67 16 118/57 93 Nasal Cannula 3.00 12/17/20 00:00 36.3 12/16/20 23:59 96 Nasal Cannula 3.00 12/16/20 23:00 72 16 127/95 93 Nasal Cannula 3.00 12/16/20 22:00 75 22 123/94 95 Nasal Cannula 3.00 12/16/20 21:08 93 Nasal Cannula 3.00 12/16/20 21:00 69 20 115/48 95 Nasal Cannula 3.00 12/16/20 20:00 69 18 124/76 95 Nasal Cannula 3.00 12/16/20 20:00 96 Nasal Cannula 3.00 12/16/20 19:14 36.2 12/16/20 19:00 71 12/16/20 19:00 71 19 124/66 97 Nasal Cannula 3.00 12/16/20 18:00 78 22 133/78 95 Nasal Cannula 3.00 12/16/20 17:00 78 11 130/90 97 Nasal Cannula 3.00 12/16/20 16:00 96 Nasal Cannula 3.00 12/16/20 16:00 73 10 103/53 95 Nasal Cannula 3.00 12/16/20 15:00 76 12 127/65 96 Nasal Cannula 3.00 I & O 12/17/20 07:00 Intake Total 3450 ml Output Total 3525 ml Balance -75 ml Height & Weight Height: 6'1.00" Weight: 286lbs. 6.0oz. [id number]; 36.79 BMI Method:Stated General Appearance: No Apparent Distress, Chronically ill, Obese, Other (on nasal cannula at 3L) HEENT: PERRL/EOMI, Moist Mucous Membranes Neck: Normal Inspection, Supple Respiratory: Lungs Clear, Normal Breath Sounds, No Accessory Muscle Use, No Respiratory Distress Cardiovascular: Regular Rate, Rhythm, No Edema, No Murmur Capillary Refill: Less Than 3 Seconds Peripheral Pulses: 2+ Dorsalis Pedis (R), 2+ Left Dors-Pedis (L), 2+ Radial Pulses (R), 2+ Radial Pulses (L) Gastrointestinal: normal bowel sounds, non tender, soft Extremity: Normal Capillary Refill, No Calf Tenderness, No Pedal Edema Neurologic/Psychiatric: Alert, Oriented x3, Normal Mood/Affect Skin: Normal Color, Warm/Dry Lymphatic: No Adenopathy Results Lab Laboratory Tests 12/16/20 04:20 12/17/20 03:45 Assessment/Plan Assessment/Plan paroxysmal V-tach -taken to cardiac catheterization technician yesterday, no indication for intervention found. -on aspirin, amiodarone, and metoprolol. Eliquis of 5 restarted after procedure -management per cardiology PAULY -noncompliant with bipap at home, states he pulls it off of his face when asleep DVT prophylaxis -continue eliquis hyperkalemia -resolved, potassium 4.4 from 5.1 TOMAS -improving, creatinine 1.18 from 1.38 yesterday. DM2 -continue insulin regimen hemodynamically stable. plan to discharge from icu as patient is stable at this time. Further management per cardiology's recommendations. CHICHO BAZAN MD 12/17/201913: Supervisory-Addendum Brief Verification & Attestation Participated in pt care: history, MDM, physical Personally performed: history, MDM, supervision of care Care discussed with: Medical Student Procedures: n/a A medical student performed and documented this service. I reviewed all information documented by the medical student and made modifications to such information, when appropriate. Medical student performed patients physical exam. Medical decision making was done during tele-rounds with this medical student and a bedside RN . Plans in collaboration with bedside consultants and IM MDs. Discussed with RN to reach out if any questions or concerns A total of 5 minutes of critical care time was devoted to this patient today, required to treat and/or prevent further deterioration of critical care condition ( as above) . NAYELI URBAN MED STUDENT Dec 17, 2020 13:40 CHICHO BAZAN MD Dec 17, 2020 19:14
== END 2020-12-17 16:05 | disposition home or self-care (01) | DRG 281 ==
LOC: EDUNIT# 23:19 → ER 23:20 → ICU 12-15 00:51
PROVIDERS: ADMIT Internal Medicine; ATTEND Internal Medicine
PROC: 4A023N7 Measurement of Cardiac Sampling and Pressure, Left Heart, Percutaneous Approach (ICD-10-PCS; principal; 2020-12-16)
PROC: B2111ZZ Fluoroscopy of Multiple Coronary Arteries using Low Osmolar Contrast (ICD-10-PCS; 2020-12-16)
PROC: B2151ZZ Fluoroscopy of Left Heart using Low Osmolar Contrast (ICD-10-PCS; 2020-12-16)
DX: I48.0 Paroxysmal atrial fibrillation (principal); I21.A1 Myocardial infarction type 2; N17.9 Acute kidney failure, unspecified; I47.2 Ventricular tachycardia; I10 Essential (primary) hypertension; I44.7 Left bundle-branch block, unspecified; E87.5 Hyperkalemia; J43.9 Emphysema, unspecified; G47.33 Obstructive sleep apnea (adult) (pediatric); E11.65 Type 2 diabetes mellitus with hyperglycemia; E11.22 Type 2 diabetes mellitus with diabetic chronic kidney disease; N18.32 Chronic kidney disease, stage 3b; Z79.4 Long term (current) use of insulin; E11.40 Type 2 diabetes mellitus with diabetic neuropathy, unspecified; E78.00 Pure hypercholesterolemia, unspecified; E66.01 Morbid (severe) obesity due to excess calories; Z68.36 Body mass index [BMI] 36.0-36.9, adult; M19.91 Primary osteoarthritis, unspecified site; F41.9 Anxiety disorder, unspecified; I87.2 Venous insufficiency (chronic) (peripheral); Z87.891 Personal history of nicotine dependence; Z87.01 Personal history of pneumonia (recurrent); Z83.3 Family history of diabetes mellitus; Z82.49 Family history of ischemic heart disease and other diseases of the circulatory system
CPT/HCPCS: 36415; 71045; 80048; 80053; 80061; 82947; 83036; 83735; 83874; 84100; 84443; 84484; 85025; 85027; 85610; 85730; 87081; 93005; 93041; 93306; 93458; 94640; 94761; 96372

== ENCOUNTER 2020-12-17 15:00 | Outpatient (RCR) | payer MEDICARE, MEDICAID ==
[~2020-12-17 15:00] MED LIST changes: +AMIO200T65 PO; +APIX5TAB PO; +ASPI-1238 PO; +BIMA2.5D4 OU; +CINN500C2 PO; +CYAN500L PO; +CYCL10TA25 PO; +FOLIC PO; +INSU100I14 SQ; +MTP25TSR PO; +PREN1TAB79 PO; +PRENATAL PO
--- NOTE | 2021-01-18 09:14 | 30 Day Event Recorder ---
30-DAY EVENT RECORDER 30-DAY EVENT RECORDER DATE OF PROCEDURE: 12/17/2020-01/15/2021. INDICATION: Ventricular tachycardia. PROCEDURE: A 30-day event recorder was obtained for a total of 30 days. 36 rhythm strips were presented for review. The study quality is adequate. RESULTS: 1. Baseline sinus rhythm with intraventricular conduction delay with an average heart rate of 70 bpm, ranging from 50-120 bpm with occasional, isolated premature supraventricular complexes representing 1% of the total recording time and frequent, isolated premature ventricular complexes representing 2% of the total recording time. 2. There was no evidence of ventricular tachycardia. 3. There were no pauses exceeding 2 seconds in duration. 4. There were 9 patient triggered events that correlated to sinus rhythm with heart rates ranging from 65-80 bpm with no arrhythmias. IMPRESSION: 1. This is a 30-day event monitor report. 2. Baseline sinus rhythm with intraventricular conduction delay with an average heart rate of 70 bpm, ranging from 50-120 bpm with occasional, isolated premature supraventricular complexes representing 1% of the total recording time and frequent, isolated premature ventricular complexes representing 2% of the total recording time. 3. There was no evidence of ventricular tachycardia. 4. There were 9 patient triggered events that correlated to sinus rhythm with heart rates ranging from 65-80 bpm with no arrhythmias. Certain portions of this document may have been dictated utilizing voice recognition technology. Inherent to this technology, typographical and grammatical errors may exist. As much as I am diligent to identify and correct these mistakes, some errors may remain in the document. FRANCISCA DEL ROSARIO JR, MD Jan 18, 2021 09:14
== END 2021-03-17 | disposition home or self-care (01) ==
LOC: CARD 15:00
PROVIDERS: ATTEND Internal Medicine Cardiovascular Disease
DX: R00.2 Palpitations (principal)

== ENCOUNTER 2021-01-19 16:03 | Emergency (ER) | payer MEDICARE, MEDICAID ==
[~2021-01-19] VITALS: Ht 185 cm; Wt 127.0 kg
[~2021-01-19 16:03] MED LIST changes: +AMIO200T6 PO; -AMIO200T65 PO; -CYCL10TA25 PO
[2021-01-19] MEDS ORDERED: ASPIRIN 81 MG CHEW (CHILDREN'S ASA) PO ONE (16:15)
--- NOTE | 2021-01-19 16:21 | ED General ---
General Stated Complaint: CHEST PAIN, SOB Source of Information: Patient Exam Limitations: No Limitations (NAYELI VELASCO APRN) History of Present Illness Date Seen by Provider: Jan 19, 2021 Time Seen by Provider: 16:13 Initial Comments To ER by private vehicle with reports of sharp chest pain constant rated at 5 out of 10 currently but was 8 out of 10. This began 2 hours ago while he was outside in his yard not doing anything strenuous. No palpitations or lightheadedness. Interestingly, he was here on 12/14/2020. He arrived to ER by EMS at that time and on arrival EMS had noted him to be in ventricular tachycardia which converted to sinus rhythm after 1 defibrillation. He subsequently was admitted and underwent cardiac catheterization showing no angiographically significant coronary disease. He also had an echocardiogram showing ejection fraction of 55-60%. He is morbidly obese insulin-dependent diabetic with sleep apnea and COPD. Timing/Duration: 1-2 Days Severity: Moderate Modifying Factors: improves with Medication (NAYELI VELASCO APRN) Allergies and Home Medications Allergies Coded Allergies: No Known Drug Allergies (Unverified , 01/07/19) Patient Home Medication List Home Medication List Reviewed: Yes (NAYELI VELASCO APRN) Albuterol Sulfate (Ventolin Hfa) 18 Gm Hfa.aer.ad, 1-2 PUFF IH QID PRN for SHORTNESS OF BREATH, (Reported) Entered as Reported by: ELIZABETH MAY on 02/04/17 1618 Albuterol Sulfate (Albuterol Sulfate) 2.5 Mg/3 Ml Vial.neb, 3 ML NEB Q6H PRN for SHORTNESS OF BREATH, (Reported) Entered as Reported by: ROXANNA LOCKHART on 12/15/20 1214 Amiodarone HCl (Amiodarone HCl) 200 Mg Tablet, 400 MG PO BID Prescribed by: OUSMANE ORDRIGUES on 12/17/20 0940 Amitriptyline HCl (Amitriptyline HCl) 50 Mg Tablet, 50 MG PO HS, (Reported) Entered as Reported by: ELIZABETH MAY on 02/04/17 1618 Apixaban (Eliquis) 5 Mg Tablet, 5 MG PO BID Prescribed by: OUSMANE RODRIGUES on 12/17/20 0940 Aspirin (Aspirin EC) 81 Mg Tablet.dr, 81 MG PO DAILY, (Reported) Entered as Reported by: ROXANNA LOCKHART on 12/15/20 1214 Bimatoprost (Lumigan) 2.5 Ml Drops, 1 DROP OU HS, (Reported) Entered as Reported by: ROXANNA LOCKHART on 12/15/20 1216 Budesonide/Formoterol Fumarate (Symbicort 160-4.5 Mcg Inhaler) 10.2 Gm Hfa.aer.ad, 2 PUFF IH BID, (Reported) Entered as Reported by: ELIZABETH MAY on 02/04/17 1618 Cinnamon Bark (Cinnamon) 500 Mg Capsule, 500 MG PO DAILY, (Reported) Entered as Reported by: CHIN LIN on 12/15/20 0755 Cyanocobalamin (Vitamin B-12) (Vitamin B-12) 500 Mcg Lozenge, 500 MCG PO DAILY, (Reported) Entered as Reported by: CHIN LIN on 12/15/20 0755 Cyclobenzaprine HCl (Cyclobenzaprine HCl) 10 Mg Tablet, 10 MG PO TID PRN for SPASMS, (Reported) Entered as Reported by: ELIZABETH MAY on 02/04/17 1618 Diazepam (Diazepam) 2 Mg Tablet, 2 MG PO TID, (Reported) Entered as Reported by: ROXANNA LOCKHART on 12/15/20 1214 Diclofenac Sodium (Diclofenac Sodium) 75 Mg Tablet.dr, 75 MG PO BID, (Reported) Entered as Reported by: ELIZABETH MAY on 02/04/17 1618 Ferrous Sulfate (Ferosul) 325 Mg Tablet, 325 MG PO DAILY, (Reported) Entered as Reported by: CHRISTIANO HARDIN on 01/07/19 1306 Fluticasone Propionate (Fluticasone Propionate) 16 Gm [place].susp, 2 SPRAY NSEACH DAILY, (Reported) Entered as Reported by: ROXANNA LOCKHART on 12/15/20 1214 Furosemide (Furosemide) 20 Mg Tablet, 20 MG PO DAILY, (Reported) Entered as Reported by: ROXANNA LOCKHART on 12/15/20 1214 Gabapentin (Gabapentin) 600 Mg Tablet, 600 MG PO TID, (Reported) Entered as Reported by: ELVIRA SZYMANSKI on 06/13/16 0950 Glimepiride (Glimepiride) 4 Mg Tablet, 4 MG PO BID WITH MEALS, (Reported) Entered as Reported by: ELIZABETH MAY on 02/04/17 1618 Insulin Aspart (Novolog Flexpen) 300 Units/3 Ml Solution, 25 UNITS SQ AC, (Reported) Entered as Reported by: ROXANNA LOCKHART on 12/15/20 1214 Insulin Determir (Levemir) 1,000 Units/10 Ml Soln, 40 UNITS SQ BID, (Reported) Entered as Reported by: CHIN LIN on 12/15/20 0752 Meclizine HCl (Meclizine HCl) 25 Mg Tablet, 12.5 MG PO QID, (Reported) Entered as Reported by: ELIZABETH MAY on 02/04/17 1618 Metoprolol Succinate (Metoprolol Succinate) 25 Mg Tab.er.24h, 25 MG PO BID Prescribed by: OUSMANE RODRIGUES on 12/17/20 0940 Morphine Sulfate (Morphine Sulfate ER) 60 Mg Tablet.er, 60 MG PO Q12H, (Reported) Entered as Reported by: ROXANNA LOCKHART on 12/15/20 1214 Oxycodone HCl/Acetaminophen (Oxycodone-Acetaminophen 5-325) 1 Each Tablet, 1 EACH PO Q4H PRN for PAIN-SEVERE (8-10), (Reported) Entered as Reported by: ROXANNA LOCKHART on 12/15/20 121 Pantoprazole Sodium (Pantoprazole Sodium) 40 Mg Tablet.dr, 40 MG PO DAILY, (Rep orted) Entered as Reported by: ROXANNA LOCKHART on 12/15/20 121 [ W/ Folic] , 1 EACH PO DAILY, (Reported) Entered as Reported by: ROXANNA LOCKHART on 12/15/201213 Review of Systems Review of Systems Constitutional: see HPI EENTM: see HPI Respiratory: no symptoms reported Cardiovascular: no symptoms reported Genitourinary: no symptoms reported Musculoskeletal: no symptoms reported Skin: no symptoms reported Psychiatric/Neurological: No Symptoms Reported Hematologic/Lymphatic: No Symptoms Reported Immunological/Allergic: no symptoms reported (NAYELI VELASCO APRN) Past Bjpxdhx-Tfyvuc-Cfllab Hx Immunizations Up To Date Tetanus Booster (TDap): Unknown PED Vaccines UTD: No First/Initial COVID19 Vaccinat: none Second COVID19 Vaccination Aleksandr: none Third COVID19 Vaccination Date: none (NAYELI VELASCO APRN) Seasonal Allergies Seasonal Allergies: No (NAYELI VELASCO APRN) Past Medical History Surgeries: Yes (L SHOULDER, R ANKLE, PENILE IMPLANT, ARTIFICIAL TESTICLE) Orthopedic, Penile Implant, Testicular, Vasectomy Respiratory: Yes Pneumonia, Sleep Apnea, COPD Currently Using CPAP: Yes Currently Using BIPAP: No Cardiac: Yes High Cholesterol, Hypertension Neurological: Yes Neuropathy Reproductive Disorders: Yes (ARTIFICAL TESTICLE, ) Sexually Transmitted Disease: No HIV/AIDS: No Genitourinary: Yes Renal Failure Gastrointestinal: No Musculoskeletal: Yes (Charcot foot) Arthritis, Back Injury, Chronic Back Pain Endocrine: Yes (MORBID OBESITY) Diabetes, Insulin dep HEENT: No (GLASSES) Loss of Vision: Denies Hearing Impairment: Denies Cancer: No Did You Recieve Any Treatments: No Psychosocial: Yes Anxiety Integumentary: No Blood Disorders: Yes (ANEMIA) Adverse Reaction/Blood Tranf: No (N/A) (NAYELI VELASCO APRN) Family Medical History Diabetes mellitus 19 MOTHER G8 SISTER Hypertension 19 FATHER 19 MOTHER Myocardial infarction 19 FATHER (STROKES) Heart Disease, CVA, Diabetes (NAYELI VELASCO APRN) Physical Exam Vital Signs Vital Signs - First Documented 01/19/21 01/19/21 16:07 17:52 Temp 36.3 Pulse 71 Resp 18 B/P (MAP) 170/94 (119) Pulse Ox 94 O2 Delivery Room Air O2 Flow Rate 2.00 (BART ALLEN DO) Vital Signs Capillary Refill : (NAYELI VELASCO APRN) Height, Weight, BMI Height: 6'1.00" Weight: 286lbs. 6.0oz. [id number]; 36.79 BMI Method:Stated General Appearance: No Apparent Distress, WD/WN, Obese, Other (Alert and oriented no distress. His EKG shows sinus rhythm at 73 with an intraventricular conduction delay. No ST segment change.) Eyes: Bilateral Eye Normal Inspection, Bilateral Eye PERRL Neck: Full Range of Motion Respiratory: No Accessory Muscle Use, No Respiratory Distress Cardiovascular: Regular Rate, Rhythm, Normal Peripheral Pulses Gastrointestinal: Normal Bowel Sounds, Non Tender, Soft Extremity: Normal Capillary Refill, Normal Inspection Neurologic/Psychiatric: Alert, Oriented x3 (NAYELI VELASCO APRN) Procedures/Interventions Date of ETT Placement: Jul 22, 2018 Time of ETT Placement: 929 (NAYELI VELASCO APRN) Progress/Results/Core Measures Suspected Sepsis SIRS Temperature: Pulse: Respiratory Rate: Laboratory Tests 01/19/21 16:31: White Blood Count 7.9 Blood Pressure / Mean: Laboratory Tests 01/19/21 16:31: Creatinine 1.69H, INR Comment 1.1, Platelet Count 157, Total Bilirubin 0.5 (NAYELI VELASCO APRN) Results/Orders Lab Results Laboratory Tests Test 01/19/21 16:31 01/19/21 18:30 Range/Units White Blood Count 7.9 4.3-11.0 10^3/uL Red Blood Count 4.41 4.30-5.52 10^6/uL Hemoglobin 12.2 L 13.3-17.7 g/dL Hematocrit 39 L 40-54 % Mean Corpuscular Volume 89 80-99 fL Mean Corpuscular Hemoglobin 28 25-34 pg Mean Corpuscular Hemoglobin Concent 31 L 32-36 g/dL Red Cell Distribution Width 15.3 H 10.0-14.5 % Platelet Count 157 130-400 10^3/uL Mean Platelet Volume 11.1 9.0-12.2 fL Immature Granulocyte % (Auto) 1 % Neutrophils (%) (Auto) 55 42-75 % Lymphocytes (%) (Auto) 27 12-44 % Monocytes (%) (Auto) 14 H 0-12 % Eosinophils (%) (Auto) 3 0-10 % Basophils (%) (Auto) 1 0-10 % Neutrophils # (Auto) 4.4 1.8-7.8 10^3/uL Lymphocytes # (Auto) 2.1 1.0-4.0 10^3/uL Monocytes # (Auto) 1.1 H 0.0-1.0 10^3/uL Eosinophils # (Auto) 0.3 0.0-0.3 10^3/uL Basophils # (Auto) 0.1 0.0-0.1 10^3/uL Immature Granulocyte # (Auto) 0.1 0.0-0.1 10^3/uL Prothrombin Time 14.5 12.2-14.7 SEC INR Comment 1.1 0.8-1.4 Activated Partial Thromboplast Time 35 24-35 SEC Sodium Level 140 135-145 MMOL/L Potassium Level 5.3 H 3.6-5.0 MMOL/L Chloride Level 102 98-107 MMOL/L Carbon Dioxide Level 27 21-32 MMOL/L Anion Gap 11 5-14 MMOL/L Blood Urea Nitrogen 30 H 7-18 MG/DL Creatinine 1.69 H 0.60-1.30 MG/DL Estimat Glomerular Filtration Rate 41 BUN/Creatinine Ratio 18 Glucose Level 260 H 70-105 MG/DL Calcium Level 9.8 8.5-10.1 MG/DL Corrected Calcium 9.7 8.5-10.1 MG/DL Magnesium Level 2.0 1.6-2.4 MG/DL Total Bilirubin 0.5 0.1-1.0 MG/DL Aspartate Amino Transf (AST/SGOT) 32 5-34 U/L Alanine Aminotransferase (ALT/SGPT) 46 0-55 U/L Alkaline Phosphatase 105 40-136 U/L Myoglobin 51.4 10.0-92.0 NG/ML Troponin I < 0.028 < 0.028 <0.028 NG/ML B-Type Natriuretic Peptide 59.9 <100.0 PG/ML Total Protein 7.0 6.4-8.2 GM/DL Albumin 4.1 3.2-4.5 GM/DL (BART ALLEN DO) Vital Signs/I&O 01/19/21 01/19/21 01/19/21 16:07 17:52 19:10 Temp 36.3 36.3 Pulse 71 65 60 Resp 18 18 16 B/P (MAP) 170/94 (119) 141/70 133/59 Pulse Ox 94 95 98 O2 Delivery Room Air Nasal Cannula Room Air O2 Flow Rate 2.00 (BART ALLEN DO) Vital Signs/I&O Capillary Refill : (NAYELI VELASCO RO[place]OWER) Departure Impression Primary Impression: Chest pain Disposition: HOME, SELF-CARE Condition: Stable Departure-Patient Inst. Referrals: LAUREN RODRIGUEZ MD (PCP/Family) Primary Care Physician ATTENDING PHYSICIAN NOTE: I WAS PHYSICALLY PRESENT ER PHYSICIAN WHILE THIS PT WAS IN ER, BUT I WAS NOT INVOLVED IN ANY DECISION MAKING OR ANY CARE OF THIS PATIENT. (BART ALLEN DO) NAYELI VELASCO APRN Jan 19, 2021 16:21 BART ALLEN DO Jan 21, 2021 21:37
[2021-01-19 16:37] LABS: BASOPHILS # (AUTO) 0.1 10^3/uL (0.0-0.1); BASOPHILS % (AUTO) 1 % (0-10); EOSINOPHILS # (AUTO) 0.3 10^3/uL (0.0-0.3); EOSINOPHILS % (AUTO) 3 % (0-10); HEMATOCRIT 39 % (40-54); HEMOGLOBIN 12.2 g/dL (13.3-17.7); LYMPHOCYTES # (AUTO) 2.1 10^3/uL (1.0-4.0); LYMPHOCYTES % (AUTO) 27 % (12-44); MEAN CORPUSCULAR HEMOGLOBIN 28 pg (25-34); MEAN CORPUSCULAR HGB CONC 31 g/dL (32-36); MEAN CORPUSCULAR VOLUME 89 fL (80-99); MEAN PLATELET VOLUME 11.1 fL (9.0-12.2); MONOCYTES # (AUTO) 1.1 10^3/uL (0.0-1.0); MONOCYTES % (AUTO) 14 % (0-12); NEUTROPHILS # (AUTO) 4.4 10^3/uL (1.8-7.8); NEUTROPHILS % (AUTO) 55 % (42-75); PLATELET COUNT 157 10^3/uL (130-400); WHITE BLOOD COUNT 7.9 10^3/uL (4.3-11.0)
--- NOTE | 2021-01-19 16:40 | Diagnostic Imaging Report ---
INDICATION: Shortness of breath. COMPARISON: 12/15/2020. FINDINGS: Single view of the chest demonstrates cardiac enlargement with slight central vascular congestion. There is no pneumothorax or effusion. Osseous structures are stable. IMPRESSION: Cardiac enlargement with slight central vascular congestion. Dictated by: Dictated on workstation # [id number]
[2021-01-19 16:49] LABS: ALBUMIN 4.1 GM/DL (3.2-4.5); POTASSIUM 5.3 MMOL/L (3.6-5.0)
[2021-01-19 16:50] LABS: INR 1.1 (0.8-1.4); PROTHROMBIN TIME PATIENT 14.5 SEC (12.2-14.7)
[2021-01-19 16:51] LABS: CALCIUM 9.8 MG/DL (8.5-10.1)
[2021-01-19 16:54] LABS: BILIRUBIN,TOTAL 0.5 MG/DL (0.1-1.0)
[2021-01-19 16:55] LABS: CREATININE SERUM 1.69 MG/DL (0.60-1.30)
[2021-01-19] MEDS ORDERED: fentaNYL INJ 100 MCG/2 ML AMP IVP ONE (17:45)
[2021-01-19 19:10] VITALS: BP 133/59
== END 2021-01-19 19:18 | disposition home or self-care (01) ==
LOC: EDUNIT# 16:03 → ER 16:05
DX: R07.9 Chest pain, unspecified (principal); G47.30 Sleep apnea, unspecified; J44.9 Chronic obstructive pulmonary disease, unspecified; I10 Essential (primary) hypertension; E66.01 Morbid (severe) obesity due to excess calories; G89.29 Other chronic pain; M54.9 Dorsalgia, unspecified; E11.9 Type 2 diabetes mellitus without complications; F41.9 Anxiety disorder, unspecified; Z68.36 Body mass index [BMI] 36.0-36.9, adult; Z79.82 Long term (current) use of aspirin; Z79.01 Long term (current) use of anticoagulants; Z79.891 Long term (current) use of opiate analgesic; Z79.4 Long term (current) use of insulin; Z79.899 Other long term (current) drug therapy
CPT/HCPCS: 36415; 71045; 80053; 83735; 83874; 83880; 84484; 85025; 85610; 85730; 93005

== ENCOUNTER 2021-03-05 11:59 | Emergency (ER) | payer MEDICARE, MEDICAID ==
[~2021-03-05] VITALS: Ht 185 cm; Wt 115.0 kg
[~2021-03-05 11:59] MED LIST changes: -AMIO200T6 PO; +AMIO200T65 PO; +CYCL10TA25 PO
--- NOTE | 2021-03-05 12:50 | Diagnostic Imaging Report ---
EXAMINATION: Right knee radiographs, 3 views. COMPARISON: None. HISTORY: 65-year-old male, fall. Knee pain. FINDINGS: There is moderate to severe medial compartment joint space loss. There is no knee joint effusion. There is no identified acute fracture. There is no identified radiopaque foreign body. IMPRESSION: 1. No identified acute bony abnormality of the right knee. 2. Moderate to severe medial compartment osteoarthritis without knee joint effusion. Dictated by: Dictated on workstation # [id number]
--- NOTE | 2021-03-05 13:40 | ED Lower Extremity ---
General Chief Complaint: Lower Extremity Stated Complaint: RIGHT KNEE PAIN/SWELLING- FALL Nursing Triage Note: THE PT IS AMBULATORY TO THE ROOM WITHOUT DIFFICULTY. NO DISTRESS IS SEEN ON ARRIVAL. LOC IS NORMAL FOR THE PT. THE PT C/O RIGHT KNEE PAIN. Source: patient Exam Limitations: no limitations History of Present Illness Date Seen by Provider: Mar 05, 2021 Time Seen by Provider: 12:00 Initial Comments Patient is a 65-year-old male who presents to the emergency department with a chief complaint of right knee pain, swelling, limping on the right leg. He had a mechanical trip and fall 2 days ago. He is chronically anticoagulated secondary to a history of irregular heartbeat. He states he did not hit his head or suffer loss of consciousness. Did not injure himself anywhere other than the right knee. Since that time he has been having to use a cane to ambulate. Denies any numbness tingling or weakness to the right leg. He has been taking his chronic narcotic pain medications without much relief of symptoms. No complaints of recent illness. All other review of systems reviewed and negative except as stated. Onset: other (2d) Severity: moderate Pain/Injury Location: right knee Method of Injury: fell Modifying Factors: Worse With Movement Allergies and Home Medications Allergies Coded Allergies: No Known Drug Allergies (Unverified , 01/07/19) Patient Home Medication List Home Medication List Reviewed: Yes Albuterol Sulfate (Ventolin Hfa) 18 Gm Hfa.aer.ad, 1-2 PUFF IH QID PRN for SHORTNESS OF BREATH, (Reported) Entered as Reported by: ELIZABETH MAY on 02/04/17 1618 Albuterol Sulfate (Albuterol Sulfate) 2.5 Mg/3 Ml Vial.neb, 3 ML NEB Q6H PRN for SHORTNESS OF BREATH, (Reported) Entered as Reported by: ROXANNA LOCKHART on 12/15/20 1214 Amiodarone HCl (Amiodarone HCl) 200 Mg Tablet, 400 MG PO BID Prescribed by: OUSMANE RODRIGUES on 12/17/20 0940 Amitriptyline HCl (Amitriptyline HCl) 50 Mg Tablet, 50 MG PO HS, (Reported) Entered as Reported by: ELIZABETH MAY on 02/04/17 1618 Apixaban (Eliquis) 5 Mg Tablet, 5 MG PO BID Prescribed by: OUSMANE RODRIGUES on 12/17/20 0940 Aspirin (Aspirin EC) 81 Mg Tablet.dr, 81 MG PO DAILY, (Reported) Entered as Reported by: ROXANNA LOCKHART on 12/15/20 1214 Bimatoprost (Lumigan) 2.5 Ml Drops, 1 DROP OU HS, (Reported) Entered as Reported by: ROXANNA LOCKHART on 12/15/20 1216 Budesonide/Formoterol Fumarate (Symbicort 160-4.5 Mcg Inhaler) 10.2 Gm Hfa. aer.ad, 2 PUFF IH BID, (Reported) Entered as Reported by: ELIZABETH MAY on 02/04/17 1618 Cinnamon Bark (Cinnamon) 500 Mg Capsule, 500 MG PO DAILY, (Reported) Entered as Reported by: CHIN LIN on 12/15/20 0755 Cyanocobalamin (Vitamin B-12) (Vitamin B-12) 500 Mcg Lozenge, 500 MCG PO DAILY, (Reported) Entered as Reported by: CHIN LIN on 12/15/20 0755 Cyclobenzaprine HCl (Cyclobenzaprine HCl) 10 Mg Tablet, 10 MG PO TID PRN for SPASMS, (Reported) Entered as Reported by: ELIZABETH MAY on 02/04/17 1618 Diazepam (Diazepam) 2 Mg Tablet, 2 MG PO TID, (Reported) Entered as Reported by: ROXANNA LOCKHART on 12/15/20 1214 Diclofenac Sodium (Diclofenac Sodium) 75 Mg Tablet.dr, 75 MG PO BID, (Reported) Entered as Reported by: ELIZABETH MAY on 02/04/17 1618 Ferrous Sulfate (Ferosul) 325 Mg Tablet, 325 MG PO DAILY, (Reported) Entered as Reported by: CHRISTIANO HARDIN on 01/07/19 1306 Fluticasone Propionate (Fluticasone Propionate) 16 Gm [place].susp, 2 SPRAY NSEACH DAILY, (Reported) Entered as Reported by: ROXANNA LOCKHART on 12/15/20 1214 Furosemide (Furosemide) 20 Mg Tablet, 20 MG PO DAILY, (Reported) Entered as Reported by: ROXANNA LOCKHART on 12/15/20 1214 Gabapentin (Gabapentin) 600 Mg Tablet, 600 MG PO TID, (Reported) Entered as Reported by: ELVIRA SZYMANSKI on 06/13/16 0950 Glimepiride (Glimepiride) 4 Mg Tablet, 4 MG PO BID WITH MEALS, (Reported) Entered as Reported by: ELIZABETH MAY on 02/04/17 1618 Insulin Aspart (Novolog Flexpen) 300 Units/3 Ml Solution, 25 UNITS SQ AC, (Reported) Entered as Reported by: ROXANNA LOCKHART on 12/15/20 1214 Insulin Determir (Levemir) 1,000 Units/10 Ml Soln, 40 UNITS SQ BID, (Reported) Entered as Reported by: CHIN LIN on 12/15/20 0752 Meclizine HCl (Meclizine HCl) 25 Mg Tablet, 12.5 MG PO QID, (Reported) Entered as Reported by: ELIZABETH MAY on 02/04/17 1618 Metoprolol Succinate (Metoprolol Succinate) 25 Mg Tab.er.24h, 25 MG PO BID Prescribed by: OUSMANE RODRIGUES on 12/17/20 0940 Morphine Sulfate (Morphine Sulfate ER) 60 Mg Tablet.er, 60 MG PO Q12H, (Reported) Entered as Reported by: ROXANNA LOCKHART on 12/15/20 1214 Oxycodone HCl/Acetaminophen (Oxycodone-Acetaminophen 5-325) 1 Each Tablet, 1 EACH PO Q4H PRN for PAIN-SEVERE (8-10), (Reported) Entered as Reported by: ROXANNA LOCKHART on 12/15/20 1214 Pantoprazole Sodium (Pantoprazole Sodium) 40 Mg Tablet.dr, 40 MG PO DAILY, (Reported) Entered as Reported by: ROXANNA LOCKHART on 12/15/20 121 [ W/ Folic] , 1 EACH PO DAILY, (Reported) Entered as Reported by: ROXANNA LOCKHART on 12/15/20 1214 Review of Systems Constitutional: see HPI EENTM: no symptoms reported Respiratory: no symptoms reported Cardiovascular: no symptoms reported Gastrointestinal: no symptoms reported Genitourinary: no symptoms reported Musculoskeletal: joint pain (right knee) Skin: no symptoms reported All Other Systems Reviewed Negative Unless Noted: Yes Past Icxdnqj-Sabauw-Jpwjzx Hx Immunizations Up To Date Tetanus Booster (TDap): Unknown PED Vaccines UTD: No First/Initial COVID19 Vaccinat: none Second COVID19 Vaccination Aleksandr: none Third COVID19 Vaccination Date: none Seasonal Allergies Seasonal Allergies: No Past Medical History Surgeries: Yes (L SHOULDER, R ANKLE, PENILE IMPLANT, ARTIFICIAL TESTICLE) Orthopedic, Penile Implant, Testicular, Vasectomy Respiratory: Yes Pneumonia, Sleep Apnea, COPD Currently Using CPAP: Yes Currently Using BIPAP: No Cardiac: Yes High Cholesterol, Hypertension Neurological: Yes Neuropathy Reproductive Disorders: Yes (ARTIFICAL TESTICLE, ) Sexually Transmitted Disease: No HIV/AIDS: No Genitourinary: Yes Renal Failure Gastrointestinal: No Musculoskeletal: Yes (Charcot foot) Arthritis, Back Injury, Chronic Back Pain Endocrine: Yes (MORBID OBESITY) Diabetes, Insulin dep HEENT: No (GLASSES) Loss of Vision: Denies Hearing Impairment: Denies Cancer: No Did You Recieve Any Treatments: No Psychosocial: Yes Anxiety Integumentary: No Blood Disorders: Yes (ANEMIA) Adverse Reaction/Blood Tranf: No (N/A) Family Medical History Diabetes mellitus 19 MOTHER G8 SISTER Hypertension 19 FATHER 19 MOTHER Myocardial infarction 19 FATHER (STROKES) Heart Disease, CVA, Diabetes Physical Exam Vital Signs Vital Signs - First Documented 03/05/21 12:28 Temp 36.7 Pulse 80 Resp 18 B/P (MAP) 170/80 (110) Pulse Ox 98 Capillary Refill : Less Than 3 Seconds Height, Weight, BMI Height: 6'1.00" Weight: 286lbs. 6.0oz. 131.712446no; 33.00 BMI Method:Stated General Appearance: WD/WN, no apparent distress HEENT: PERRL/EOMI Cardiovascular: regular rate, rhythm Respiratory: lungs clear, normal breath sounds, no respiratory distress, no accessory muscle use Hips: bilateral hip non-tender, bilateral hip normal inspection, bilateral hip normal range of motion, bilateral hip no evidence of injury Legs: bilateral leg non-tender, bilateral leg normal inspection, bilateral leg normal range of motion, bilateral leg no evidence of injury Knees: left knee non-tender, left knee normal inspection, left knee normal range of motion, left knee no evidence of injury; right knee pain, right knee soft tissue tenderness (medial), right knee swelling, right knee other (Right knee joint is stable, no anterior or posterior joint laxity, no medial or lateral joint laxity. He is quite tender over the entirety of the anterior knee) Neurologic/Tendon: normal sensation, normal motor functions, normal tendon functions Neurologic/Psychiatric: alert, normal mood/affect, oriented x 3 Skin: normal color, warm/dry Procedures/Interventions Date of ETT Placement: Jul 22, 2018 Time of ETT Placement: 929 Progress/Results/Core Measures Results/Orders My Orders Orders - ELIUD ALEMAN MD Knee, Right, 3 Views (03/05/21 12:19) Vital Signs/I&O 03/05/21 12:28 Temp 36.7 Pulse 80 Resp 18 B/P (MAP) 170/80 (110) Pulse Ox 98 Blood Pressure Mean: 110 Diagnostic Imaging Diagonstic Imaging: Xray Comments [facility], [place] NAME: VASQUEZ CAMPBELL V [facility] REC#: [id number] PT STATUS: REG ER : 1955 PHYSICIAN: ELIUD ALEMAN MD ADMIT DATE: 03/05/21/ER Draft Date of Exam:03/05/21 KNEE, RIGHT, 3 VIEWS EXAMINATION: Right knee radiographs, 3 views. COMPARISON: None. HISTORY: 65-year-old male, fall. Knee pain. FINDINGS: There is moderate to severe medial compartment joint space loss. There is no knee joint effusion. There is no identified acute fracture. There is no identified radiopaque foreign body. IMPRESSION: 1. No identified acute bony abnormality of the right knee. 2. Moderate to severe medial compartment osteoarthritis without knee joint effusion. Dictated on workstation # [id number] Dict: 03/05/21 1248 Trans: 03/05/21 1249 [facility] [id number] Interpreted by: WILD GRANT MD Electronically signed by: Departure Impression Primary Impression: Contusion of right knee Qualified Codes: S80.01XA - Contusion of right knee, initial encounter Additional Impression: Chronic anticoagulation Disposition: HOME, SELF-CARE Condition: Stable Departure-Patient Inst. Decision time for Depature: 13:39 Referrals: LAUREN RODRIGUEZ MD (PCP/Family) Primary Care Physician Patient Instructions: Knee Pain Add. Discharge Instructions: Use ice packs to the right knee to help lessen swelling. You can apply xuls-lsk-hqjnyyk heat/pain patches as directed on the packaging to help ease discomfort. Elevate the right leg to lessen swelling. Continue your home pain medications. Follow-up with your primary care doctor in 1 week to 10 days to further evaluate the injury to your right knee. Return to the emergency department for any increased swelling especially with redness, increased heat over the joint, fever or any other emergent concerning symptoms. ELIUD ALEMAN MD Mar 05, 2021 13:40
[2021-03-05 13:46] VITALS: BP 170/80
== END 2021-03-05 13:47 | disposition home or self-care (01) ==
LOC: EDUNIT# 11:59 → ER 12:02
DX: S80.01XA Contusion of right knee, initial encounter (principal); G47.30 Sleep apnea, unspecified; J44.9 Chronic obstructive pulmonary disease, unspecified; I10 Essential (primary) hypertension; E66.01 Morbid (severe) obesity due to excess calories; E11.9 Type 2 diabetes mellitus without complications; F41.9 Anxiety disorder, unspecified; G89.29 Other chronic pain; M54.9 Dorsalgia, unspecified; Z68.33 Body mass index [BMI] 33.0-33.9, adult; Z79.891 Long term (current) use of opiate analgesic; Z79.899 Other long term (current) drug therapy; Z79.4 Long term (current) use of insulin; Z79.01 Long term (current) use of anticoagulants; Z79.82 Long term (current) use of aspirin; W01.0XXA Fall on same level from slipping, tripping and stumbling without subsequent striking against object, initial encounter
CPT/HCPCS: 73562

== ENCOUNTER 2021-04-04 15:58 | Inpatient (IN) | payer MEDICARE, MEDICAID ==
[~2021-04-04] VITALS: Ht 185 cm; Wt 129.0 kg
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
[2021-04-04] MEDS ORDERED: NS IV 500 ML 500 ML IV ONE (16:30)
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
[2021-04-04] MEDS ORDERED: IOHEXOL 350 MG/ML 100 ML (OMNIPAQUE 350) VIAL IV ONE (17:15)
[2021-04-04] MEDS ORDERED: HOLD METFORMIN - RECEIVED CONTRAST 20 ML VIAL IV SCH (17:15)
[2021-04-04] MEDS ORDERED: NS 100 ML (IVPB) BAG IV ONE (17:15)
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
[2021-04-04 17:24] VITALS: BP 155/93
[2021-04-04 17:24] LABS: HEMATOCRIT 36 % (40-54); HEMOGLOBIN 11.3 g/dL (13.3-17.7); MEAN CORPUSCULAR HEMOGLOBIN 29 pg (25-34); MEAN CORPUSCULAR HGB CONC 32 g/dL (32-36); MEAN CORPUSCULAR VOLUME 90 fL (80-99); MEAN PLATELET VOLUME 10.4 fL (9.0-12.2); PLATELET COUNT 234 10^3/uL (130-400); WHITE BLOOD COUNT 9.1 10^3/uL (4.3-11.0)
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
--- NOTE | 2021-04-04 17:29 | Diagnostic Imaging Report ---
INDICATION: Foot pain COMPARISON: None available TECHNIQUE: 3 radiographs of the right foot dated 04/04/2021. FINDINGS: An obliquely oriented lucency is noted extending through the proximal to distal shaft of the 2nd digit proximal phalanx. No definite intra-articular extension of the fracture. Acute-appearing fracture involving the medial base of the 1st digit proximal phalanx is identified with intra-articular extension to the 1st MTP joint. Lucency with extensive apparent erosive changes noted throughout the TMT joints with associated pes planus deformity. Mild disorganization within the midfoot is noted. The Lisfranc joint is aligned. No suspicious radiopaque foreign body. IMPRESSION: Extensive lucencies and erosive changes extending through the TMT joints. This is favored to relate to severe degenerative changes and Charcot joint with resultant pes planus deformity. Acute fracturing through this region is an additional possibility. Comparison to prior imaging would be beneficial. A CT of the foot could help to further evaluate. Acute essentially nondisplaced fracturing involving the medial base of the 1st digit proximal phalanx with intra-articular extension. Mildly displaced fracturing involving the 2nd digit proximal phalangeal shaft. Dictated by: Dictated on workstation # [id number]
[2021-04-04 17:40] LABS: ALBUMIN 3.5 GM/DL (3.2-4.5); CHLORIDE 100 MMOL/L (98-107); POTASSIUM 4.8 MMOL/L (3.6-5.0); SODIUM 132 MMOL/L (135-145)
[2021-04-04 17:41] LABS: CALCIUM 8.8 MG/DL (8.5-10.1)
[2021-04-04 17:42] LABS: GLUCOSE 94 MG/DL (70-105); TOTAL PROTEIN 6.8 GM/DL (6.4-8.2)
[2021-04-04 17:43] LABS: CARBON DIOXIDE 20 MMOL/L (21-32)
[2021-04-04 17:44] LABS: BILIRUBIN,TOTAL 0.6 MG/DL (0.1-1.0)
[2021-04-04 17:46] LABS: ALKALINE PHOSPHATASE 53 U/L (40-136); CREATININE SERUM 1.99 MG/DL (0.60-1.30); GFR ESTIMATED 34
[2021-04-04 17:47] LABS: BILIRUBIN,DIRECT 0.4 MG/DL (0.0-0.3); BILIRUBIN,INDIRECT 0.2 MG/DL; BUN/CREATININE RATIO 16
[2021-04-04 17:49] LABS: ALANINE AMINOTRANSFERASE 87 U/L (0-55)
[2021-04-04 18:38] LABS: BILIRUBIN,URINE NEGATIVE (NEGATIVE); CLARITY,URINE SL CLOUDY; COLOR,URINE YELLOW; GLUCOSE, URINE (UA) NEGATIVE (NEGATIVE); KETONES,URINE NEGATIVE (NEGATIVE); LEUKOCYTE ESTERASE ,URINE NEGATIVE (NEGATIVE); NITRITE,URINE NEGATIVE (NEGATIVE); PH,URINE 5.5 (5-9); PROTEIN,URINE 2+ (NEGATIVE)
[2021-04-04 18:53] LABS: BACTERIA,URINE NEGATIVE /HPF; RBC,URINE 0-2 /HPF
[2021-04-04 18:53] LABS: ABG BASE EXCESS -2.2 MMOL/L (-2.5-2.5); ABG OXYGEN SATURATION 95 % (94-100); ABG PCO2 46 MMHG (35-45); ABG PO2 90 MMHG (79-93); ABG TCO2 24.4 MMOL/L (21.0-31.0)
[2021-04-04 18:54] LABS: ABG PH 7.32 (7.37-7.43)
[2021-04-04 18:55] LABS: ALLENS TEST POS; INSPIRED O2 75; PATIENT TEMP 37; VENTILATOR YES
[2021-04-04 20:03] VITALS: BP 137/89
[2021-04-04 20:03] LABS: AMPHETAMINE SCREEN, URINE NEGATIVE (NEGATIVE); BARBITURATE SCREEN URINE NEGATIVE (NEGATIVE); BENZODIAZEPINES SCREEN URINE POSITIVE (NEGATIVE); CANNABINOID SCREEN, URINE NEGATIVE (NEGATIVE); COCAINE SCREEN URINE NEGATIVE (NEGATIVE); METHADONE STAT NEGATIVE (NEGATIVE); METHAMPHETAMINE SCREEN URINE S NEGATIVE (NEGATIVE); OPIATE SCREEN URINE NEGATIVE (NEGATIVE); OXYCODONE STAT NEGATIVE (NEGATIVE); PROPOXYPHENE STAT NEGATIVE (NEGATIVE); TRICYCLIC ANTIDEPRESSANTS SCRE POSITIVE (NEGATIVE)
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
[2021-04-04] MEDS ORDERED: CALCIUM CARBONATE 500 MG (TUMS) TAB.CHEW PO PRN (20:30)
[2021-04-04] MEDS ORDERED: ONDANSETRON 4 MG (ZOFRAN) ORAL DISSOLVE TAB PO PRN (20:30)
[2021-04-04] MEDS ORDERED: ONDANSETRON 4 MG/2 ML (SDV) Z0FRAN IV PRN (20:30)
[2021-04-04] MEDS ORDERED: polyethylene glycoL POWDER 17 GM (MIRALAX) PACK PO PRN (20:30)
[2021-04-04] MEDS ORDERED: diphenhydrAMINE 25 MG TAB (BENADRYL) PO PRN (20:30)
[2021-04-04] MEDS ORDERED: LACTULOSE SYRUP 10GM/15ML (ENULOSE) 30ML UDC PO PRN (20:30)
[2021-04-04] MEDS ORDERED: MILK OF MAGNESIA 400 MG/5 ML 30 ML UDC PO PRN (20:30)
[2021-04-04] MEDS ORDERED: ACETAMINOPHEN 325 MG TABLET PO PRN (20:30)
[2021-04-04] MEDS ORDERED: MELATONIN 3 MG TABLET PO PRN (20:30)
[2021-04-04] MEDS ORDERED: ANTACID SUSP 30 ML UDC (MYLANTA) PO PRN (20:30)
[2021-04-04] MEDS ORDERED: BISACODYL 10 MG SUPP (DULCOLAX) PR PRN (20:30)
[2021-04-04] MEDS ORDERED: diphenhydrAMINE 50 MG/ML INJ (BENADRYL) IVP PRN (20:30)
[2021-04-04] MEDS ORDERED: RT-ALBUTEROL HFA 8.5 GM INHALER IH PRN (20:45)
[2021-04-04] MEDS: DOCUSATE SODIUM 100 MG (COLACE) CAP PO SCH (21:43)
[2021-04-04] MEDS: SENNOSIDES 8.6 MG (SENOKOT) TAB PO SCH (21:43)
[2021-04-04] MEDS: inSUlin ASPART (NovoLOG) 1 UNIT/0.01 ML (CHARGE PER UNIT) SC SCH (21:43)
[2021-04-04] MEDS ORDERED: NS IV 1000 ML 1,000 ML ONE (21:47)
[2021-04-04] MEDS: RT-ALBUTEROL HFA 8.5 GM INHALER IH SCH (21:52)
[2021-04-04 21:53] VITALS: BP 101/62
[2021-04-04] MEDS: NS IV 1000 ML 1,000 ML IV SCH (21:58)
[2021-04-04] MEDS: CEFEPIME INJECTION 1,000 MG in NS (IVPB) 50 ML IV SCH (23:25)
[2021-04-05] MEDS: RT-ALBUTEROL HFA 8.5 GM INHALER IH SCH ×6 (02:36→21:35)
[2021-04-05 05:17] LABS: BASOPHILS % (AUTO) 0 % (0-10); EOSINOPHILS % (AUTO) 0 % (0-10); HEMATOCRIT 35 % (40-54); HEMOGLOBIN 11.1 g/dL (13.3-17.7); LYMPHOCYTES # (AUTO) 0.9 10^3/uL (1.0-4.0); LYMPHOCYTES % (AUTO) 10 % (12-44); MEAN CORPUSCULAR HEMOGLOBIN 28 pg (25-34); MEAN CORPUSCULAR HGB CONC 31 g/dL (32-36); MEAN CORPUSCULAR VOLUME 91 fL (80-99); MEAN PLATELET VOLUME 10.3 fL (9.0-12.2); MONOCYTES # (AUTO) 0.6 10^3/uL (0.0-1.0); MONOCYTES % (AUTO) 6 % (0-12); NEUTROPHILS # (AUTO) 7.6 10^3/uL (1.8-7.8); NEUTROPHILS % (AUTO) 83 % (42-75); PLATELET COUNT 222 10^3/uL (130-400); WHITE BLOOD COUNT 9.2 10^3/uL (4.3-11.0)
[2021-04-05 05:38] LABS: ALBUMIN 3.5 GM/DL (3.2-4.5); POTASSIUM 4.7 MMOL/L (3.6-5.0)
[2021-04-05 05:39] LABS: CALCIUM 8.9 MG/DL (8.5-10.1)
[2021-04-05 05:40] LABS: TOTAL PROTEIN 6.9 GM/DL (6.4-8.2)
[2021-04-05 05:42] LABS: BILIRUBIN,TOTAL 0.6 MG/DL (0.1-1.0)
[2021-04-05 05:44] LABS: CREATININE SERUM 1.68 MG/DL (0.60-1.30); PHOSPHORUS 4.1 MG/DL (2.3-4.7)
[2021-04-05 05:47] LABS: MAGNESIUM 2.3 MG/DL (1.6-2.4)
[2021-04-05] MEDS ORDERED: KCL 20 MEQ TAB (K-DUR) PO SCH (06:00)
[2021-04-05] MEDS ORDERED: POTASSIUM CL 10MEQ/50ML IVPB 50 ML IV SCH (06:00)
[2021-04-05] MEDS ORDERED: MAGNESIUM 1 GM/100 ML IVPB 100 ML IV SCH (06:00)
[2021-04-05] MEDS: inSUlin ASPART (NovoLOG) 1 UNIT/0.01 ML (CHARGE PER UNIT) SC SCH ×4 (06:10→20:49)
[2021-04-05] MEDS: CEFEPIME INJECTION 1,000 MG in NS (IVPB) 50 ML IV SCH ×3 (06:25→23:04)
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
[2021-04-05] MEDS: DOCUSATE SODIUM 100 MG (COLACE) CAP PO SCH ×2 (08:59→20:48)
[2021-04-05] MEDS: SENNOSIDES 8.6 MG (SENOKOT) TAB PO SCH ×2 (08:59→20:48)
[2021-04-05] MEDS ORDERED: ENOXAPARIN 40 MG/0.4 ML (LOVENOX) SYR SC SCH (09:45)
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
--- NOTE | 2021-04-05 12:33 | Diagnostic Imaging Report ---
INDICATION: Covid patient, PICC line. FINDINGS: A right PICC catheter has been placed and is malpositioned. It is directed up the neck along the course of the right jugular. The tip extends above the field of view and this should be repositioned. The bilateral pulmonary infiltrates, while substantial, have at least slightly improved in density from the comparison of one day earlier. IMPRESSION: 1. Slight improvement in the extensive bilateral infiltrates. 2. The malpositioned right PICC line is directed up the neck along the right jugular. 3. The report was called to the patient's nurse Nery by krista@12:32 PM. Dictated by: Dictated on workstation # [id number]
[2021-04-05] MEDS: NS IV 1000 ML 1,000 ML IV SCH (13:49)
--- NOTE | 2021-04-05 15:17 | Pulmonary Progress Note ---
Subjective Date Seen by a Provider: Apr 05, 2021 Time Seen by a Provider: 07:00 Subjective/Events-last exam Michael states his SOB feels about the same as yesterday. Night RN notes he desaturated to the 70's overnight when he pulled off his bipap because it made him uncomfortable. Exam Exam Patient acknowledged, consented, and participated in this virtual visit which was conducted using real time audio/video Vital Signs Date Time Temp Pulse Resp B/P (MAP) Pulse Ox O2 Delivery O2 Flow Rate FiO2 04/05/21 13:00 79 23 160/82 94 Vapotherm 40.00 100.00 04/05/21 12:41 80 04/05/21 12:01 93 Vapotherm 40.00 100 04/05/21 12:00 35.9 04/05/21 12:00 93 31 173/92 94 Vapotherm 40.00 100.00 04/05/21 11:00 80 26 155/77 95 Vapotherm 40.00 100.00 04/05/21 10:00 93 Vapotherm 40.00 100 04/05/21 10:00 80 17 141/69 95 Vapotherm 40.00 100.00 04/05/21 09:01 Vapotherm 40.00 100.00 04/05/21 09:00 74 20 144/119 96 NIV Bilevel 65.00 04/05/21 08:00 36.7 04/05/21 08:00 72 28 130/64 93 NIV Bilevel 65.00 04/05/21 07:48 93 NIV Bilevel 55 04/05/21 07:06 72 24 94 65.00 04/05/21 07:00 71 28 135/64 93 NIV Bilevel 65.00 04/05/21 07:00 73 04/05/21 06:00 73 22 138/69 94 NIV Bilevel 65.00 04/05/21 05:00 73 20 134/65 93 NIV Bilevel 65.00 04/05/21 04:00 73 25 132/58 93 NIV Bilevel 65.00 04/05/21 04:00 93 NIV Bilevel 55 04/05/21 03:00 72 25 124/60 94 NIV Bilevel 65.00 04/05/21 02:36 75 28 94 65.00 04/05/21 02:00 73 25 116/59 94 NIV Bilevel 65.00 04/05/21 01:00 75 23 106/62 92 NIV Bilevel 65.00 04/05/21 01:00 76 04/05/21 00:00 78 26 112/73 92 NIV Bilevel 65.00 04/04/21 23:59 92 NIV Bilevel 55 04/04/21 23:37 NIV Bilevel 65.00 04/04/21 23:00 78 33 119/58 93 NIV Bilevel 50.00 04/04/21 22:07 36.3 04/04/21 22:00 75 26 122/64 90 NIV Bilevel 50.00 04/04/21 21:53 78 26 93 50.00 04/04/21 21:45 79 38 101/62 88 NIV Bilevel 50.00 04/04/21 21:30 74 31 119/63 91 NIV Bilevel 50.00 04/04/21 21:15 74 14 121/59 93 NIV Bilevel 50.00 04/04/21 21:00 71 22 122/57 96 NIV Bilevel 50.00 04/04/21 20:45 73 25 120/49 94 NIV Bilevel 50.00 04/04/21 20:36 86 96 75 04/04/21 20:30 73 19 125/53 95 NIV Bilevel 50.00 04/04/21 20:22 36.4 04/04/21 20:17 71 18 137/89 95 NIV Bilevel 50.00 04/04/21 20:15 71 23 119/54 96 NIV Bilevel 50.00 04/04/21 20:15 93 NIV Bilevel 55 04/04/21 20:05 74 04/04/21 20:03 74 32 96 50.00 04/04/21 19:36 35.5 77 16 112/52 96 NIV Bilevel 75.00 04/04/21 17:24 86 33 96 75.00 I & O 04/05/21 07:00 Intake Total 1125 ml Output Total 800 ml Balance 325 ml Height & Weight Height: 6'1.00" Weight: 286lbs. 6.0oz. [id number]; 37.69 BMI Method:Stated General Appearance: Mild Distress, Other (bipap ) HEENT: PERRL/EOMI, TMs Normal, Normal ENT Inspection, Pharynx Normal, Moist Mucous Membranes Neck: Full Range of Motion, Normal Inspection, Supple Respiratory: Chest Non Tender, No Accessory Muscle Use, Decreased Breath Sounds (all lobes greatly decreased) Cardiovascular: Regular Rate, Rhythm, No Gallop, No JVD, No Murmur, Normal Peripheral Pulses Capillary Refill: NONE Peripheral Pulses: 2+ Radial Pulses (R), 2+ Radial Pulses (L) Gastrointestinal: non tender, soft Extremity: Normal Capillary Refill, No Calf Tenderness, No Pedal Edema, Other (ecchymoses at toes of bilateral feet, rocker bottom feet bilaterally) Neurologic/Psychiatric: Alert, Oriented x3, No Motor/Sensory Deficits, Normal Mood/Affect Skin: Normal Color, Warm/Dry Lymphatic: No Adenopathy Results Lab Laboratory Tests 04/04/21 17:18 04/05/21 05:06 Assessment/Plan Assessment/Plan covid 19 acute respiratory distress right lower lobe pneumonia -on decadron, cefepime on bipap 15/8 at 65% O2. -suppportive care NSTEMI fall - RLE 1st phalanx intra-articular fracture -RLE 2nd phalanx fracture -surgery to evaluate prior to anticoagulation diabetes mellitus -sliding scale NAYELI URBAN MED STUDENT Apr 05, 2021 15:17
--- NOTE | 2021-04-05 15:30 | Physical Therapy Evaluation ---
PT Evaluation-General Medical Diagnosis Admission Date Apr 04, 2021 at 19:00 Medical Diagnosis: covid 19 Onset Date: Apr 04, 2021 Therapy Diagnosis Therapy Diagnosis: impaired mobility, strength, endurance Height/Weight Height (Feet): 6 Height (Inches): 1.00 Weight (Pounds): 286 Weight (Ounces): 6.0 Precautions Precautions/Isolations: Airborne Isolation, Fall Prevention, Standard P recautions Referral Physician: Lisa Shrestha DO Reason for Referral: Evaluation/Treatment Medical History Pertinent Medical History: Arthritis, DM, HTN Additional Medical History Past Medical History 1. Degenerative Disk Disease with concern for extradural lesion in Lumbar spine with evaluation by neurosurgery pending- Irene. Recent MRI on 06-07 was most likely demonstrating fibrosis. 2. Hypertension- not filling medications however states he is taking it. 3. Diabetes Mellitus- pt. not filling medications for diabetes, however states he is taking regularly 4. Chronic narcotic use for chronic pain- pt. is overusing narcotics 5. History of scrotal cellulitis 6. Peripheral Neuropathy 7. Frequent falls secondary to neuropathy Past Surgical History 1. Removal of testicle with penile implant 2. ORIF Rt ankle with removal of screws 3. Vasectomy 4. Left Testicular removal secondary to recurrent hydrocele 5. Penile Implant secondary to erectile dysfunction 6. Left rotator Cuff Repair 7. Bilateral Knee Surgeries Reviewed History: Yes Social History Current Living Status: Alone Entry Into Home: Ramp Prior Prior Level of Function SCALE: Activities may be completed with or without assistive devices. 0-Zraeevlkra-riueznc completes the activity by him/herself with no assistance from a helper. 5-Set-up or Clean-up Assistance-helper sets up or cleans up; patient completes activity. [place] assists only prior to or following the activity. 4-Supervision or Touching Assistance-helper provides verbal cues and/or touching/steadying and/or contact guard assistance as patient completes activity. Assistance may be provided throughout the activity or intermittently. 3-Partial/Moderate Assistance-helper does LESS THAN HALF the effort. [place] lifts, holds or supports trunk or limbs, but provides less than half the effort. 2-Substantial/Maximal Assistance-helper does MORE THAN HALF the effort. [place] lifts or holds trunk or limbs and provides more than half the effort. 3-Opiigmtmy-ejrtro does ALL the effort. Patient does none of the effort to complete the activity. Or, the assistance of 2 or more helpers is required for the patient to complete the activity. If activity was not attempted, code reason: 7-Patient Refused. 9-Not Applicable-not attempted and the patient did not perform the activity before the current illness, exacerbation or injury. 10-Not Attempted due to Environmental Limitations-(lack of equipment, weather restraints, etc.). 88-Not Attempted due to Medical Conditions or Safety Concerns. Bed Mobility: 6 Transfers (B,C,W/C): 6 Prior Devices Use: Walker Patient states he has been using a rolling walker or cane, states he doesn't walk around much anymore but says he has not been using a wheelchair PT Evaluation-Current Subjective Patient in bed pre tx, agrees to PT, has 10/10 low back pain, states that is common for him. Pt/Family Goals to be independent at home Objective Patient Orientation: Person, Place, Situation Attachments: Oxygen (vapotherm), Albrecht Catheter, IV ROM/Strength ROM Lower Extremities WNL Strength Lower Extremities grossly 4/5 BLE Sensory Hearing: Functional Transfers Roll Left to Right (QC): 6 Lying to Sitting/Side of Bed(Q: 3 Sit to Stand (QC): 3 Chair/Erf-tt-Aysci Xfer(QC): 4 Patient needs min assist for supine to sit, after squaring up on the side of the bed his O2 drops to 80% and comes back up to 90% after about a minute of rest and purse lip breathing. He stands with min assist and transfers to bedside air with CGA and cues for positioning, his O2 again drops to 80% but comes back up again after about a minute of rest and purse lip breathing. Nurse notified. He had no complaints of right foot pain. Assessment/Needs Patient in bedside chair post tx with nurse call, phone, tray, all needs met. Patient has impaired mobility, strength, endurance. He needs min assist for sit to stand but is able to perform a transfer with CGA using a rolling walker. 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 Goals Time Frame: Apr 12, 2021 Roll Left & Right (QC): 6 Sit to Lying (QC): 4 Lying-Sitting on Side/Bed(QC): 4 Sit to Stand (QC): 4 Chair/Oar-sa-Uahzt Xfer(QC): 5 Walk 10 feet (QC): 4 Walk 50ft with 2 Turns (QC): 4 PT Plan Problem List Problem List: Activity Tolerance, Functional Strength, Safety, Balance, Gait, Transfer, Bed Mobility, ROM Treatment/Plan Treatment Plan: Continue Plan of Care Treatment Plan: Bed Mobility, Education, Functional Activity Imani, Functional Strength, Gait, Safety, Therapeutic Exercise, Transfers Treatment Duration: Apr 12, 2021 Frequency: 6 times per week Estimated Hrs Per Day: .25 hour per day Patient and/or Family Agrees t: Yes Safety Risks/Education Patient Education: Transfer Techniques, Correct Positioning, Safety Issues Teaching Recipient: Patient Teaching Methods: Demonstration, Discussion Response to Teaching: Reinforcement Needed Discharge Recommendations Plan Patient will perform bed mobility and transfer training, balance and endurance training, functional strengthening, gait training, and education, to improve functional mobility and independence at home. Therapy Discharge Recommendati: Scheduled Assistance, Home & Family, Post Acute PT Time/GCodes Time In: 1505 Time Out: 1518 Total Billed Treatment Time: 13 Total Billed Treatment 1 visit AKASH CONDON PT Apr 05, 2021 15:30
[2021-04-06] MEDS: RT-ALBUTEROL HFA 8.5 GM INHALER IH SCH (01:37)
[2021-04-06 01:38] VITALS: BP 119/90
[2021-04-06 04:55] LABS: BASOPHILS % (AUTO) 0 % (0-10); EOSINOPHILS % (AUTO) 0 % (0-10); HEMATOCRIT 40 % (40-54); HEMOGLOBIN 12.4 g/dL (13.3-17.7); LYMPHOCYTES # (AUTO) 0.6 10^3/uL (1.0-4.0); LYMPHOCYTES % (AUTO) 4 % (12-44); MEAN CORPUSCULAR HEMOGLOBIN 28 pg (25-34); MEAN CORPUSCULAR HGB CONC 31 g/dL (32-36); MEAN CORPUSCULAR VOLUME 91 fL (80-99); MEAN PLATELET VOLUME 11.2 fL (9.0-12.2); MONOCYTES # (AUTO) 0.8 10^3/uL (0.0-1.0); MONOCYTES % (AUTO) 5 % (0-12); NEUTROPHILS # (AUTO) 13.8 10^3/uL (1.8-7.8); NEUTROPHILS % (AUTO) 90 % (42-75); PLATELET COUNT 273 10^3/uL (130-400); WHITE BLOOD COUNT 15.3 10^3/uL (4.3-11.0)
[2021-04-06 05:14] LABS: BAND NEUTROPHILS 9 %; LYMPHOCYTES % (MANUAL) 7 %; MONOCYTES % (MANUAL) 3 %; NEUTROPHILS % (MANUAL) 81 %; RBC MORPH NORMAL
[2021-04-06 05:17] LABS: ALBUMIN 3.7 GM/DL (3.2-4.5)
[2021-04-06 05:18] LABS: POTASSIUM 5.1 MMOL/L (3.6-5.0)
[2021-04-06 05:19] LABS: CALCIUM 9.2 MG/DL (8.5-10.1)
[2021-04-06 05:20] LABS: TOTAL PROTEIN 7.8 GM/DL (6.4-8.2)
[2021-04-06 05:22] LABS: BILIRUBIN,TOTAL 0.5 MG/DL (0.1-1.0)
[2021-04-06 05:23] LABS: PHOSPHORUS 3.3 MG/DL (2.3-4.7)
[2021-04-06 05:24] LABS: CREATININE SERUM 1.49 MG/DL (0.60-1.30)
[2021-04-06 05:26] LABS: MAGNESIUM 2.3 MG/DL (1.6-2.4)
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
[2021-04-06] MEDS ORDERED: EPINEPHrine 0.1 MG/ML 10 ML (HOSPIRA) SYR IJ ONE (07:56)
[2021-04-06] MEDS ORDERED: ATROPINE INJECTION 1 MG/10 ML SYR (ABBOTT) INJ ONE (07:56)
[2021-04-06] MEDS ORDERED: CATHETER FLUSH 10 ML SYR IV ONE (07:56)
== END 2021-04-06 05:52 | disposition expired | DRG 177 ==
LOC: EDUNIT# 15:58 → ER 16:01 → ICU 19:00
PROVIDERS: ADMIT Internal Medicine; ATTEND Internal Medicine
PROC: 5A09357 Assistance with Respiratory Ventilation, Less than 24 Consecutive Hours, Continuous Positive Airway Pressure (ICD-10-PCS; principal; 2021-04-04)
DX: U07.1 COVID-19 (principal); J12.82 Pneumonia due to coronavirus disease 2019; J96.21 Acute and chronic respiratory failure with hypoxia; I21.A1 Myocardial infarction type 2; I48.91 Unspecified atrial fibrillation; G89.29 Other chronic pain; M54.9 Dorsalgia, unspecified; I10 Essential (primary) hypertension; E11.9 Type 2 diabetes mellitus without complications; E66.01 Morbid (severe) obesity due to excess calories; S92.415A Nondisplaced fracture of proximal phalanx of left great toe, initial encounter for closed fracture; S61.411A Laceration without foreign body of right hand, initial encounter; I44.7 Left bundle-branch block, unspecified; E11.42 Type 2 diabetes mellitus with diabetic polyneuropathy; F41.9 Anxiety disorder, unspecified; M19.90 Unspecified osteoarthritis, unspecified site; E78.00 Pure hypercholesterolemia, unspecified; R09.2 Respiratory arrest; V87.7XXA Person injured in collision between other specified motor vehicles (traffic), initial encounter; Z79.82 Long term (current) use of aspirin; Z79.4 Long term (current) use of insulin; Z79.899 Other long term (current) drug therapy; Z68.37 Body mass index [BMI] 37.0-37.9, adult
CPT/HCPCS: 36415; 36569; 51702; 70450; 71045; 71260; 72125; 72170; 73630; 74177; 76937; 80048; 80053; 80076; 80306; 80320; 81000; 82805; 82947; 83735; 83880; 84100; 84484; 85007; 85025; 85027; 85379; 87636; 93005; 93041; 94640; 94660